=== PATIENT | female | born 1935 | race Caucasian/White ===

== ENCOUNTER → 2020-06-01 09:27 | Outpatient (BNVA) | payer MEDICARE, OTHER, SELFPAY | PROVIDERS: PCP Internal Medicine; Visit Provider Orthopaedic Surgery | DX: M17.0 Bilateral primary osteoarthritis of knee (principal) | CPT/HCPCS: 20610; 99214; J1040 ==

== ENCOUNTER 2020-06-22 08:49 | Outpatient (REF) | payer MEDICARE, OTHER, SELFPAY ==
[2020-06-22 11:54] LABS: Alanine Aminotransferase < 6 U/L (0-31); Albumin Level 3.9 g/dL (3.5-5.0); Alkaline Phosphatase 52 U/L (39-117); Anion Gap 11 (12-20); Aspartate Amino Transferase 14 U/L (5-31); Bilirubin Total 0.3 mg/dL (0.0-1.0); Blood Urea Nitrogen 15 mg/dL (9-16); Calcium 7.9 mg/dL (8.4-10.2); Carbon Dioxide 26 mmol/L (22-29); Chloride 104 mmol/L (96-108); Cholesterol 246 mg/dL; Estimated Glomerular Filt Rate > 60; Glucose Fasting 86 mg/dL (60-99); HDL Cholesterol 56 mg/dL; LDL Cholesterol Calculated 153 mg/dl; Potassium 3.8 mmol/l (3.3-5.1); Sodium 137 mmol/L (135-145); Total Protein 6.2 g/dL (6.5-8.0); Triglycerides 186 mg/dL
== END 2020-06-22 08:50 | disposition home or self-care (01) ==
LOC: HO.HMGCLDS 08:49
PROVIDERS: PCP Internal Medicine; Visit Provider Internal Medicine
DX: E78.2 Mixed hyperlipidemia (principal)
CPT/HCPCS: 80053; 80061

== ENCOUNTER 2020-07-01 13:28 | Outpatient (REF) | payer MEDICARE, OTHER, SELFPAY ==
--- NOTE | 2020-07-01 13:31 | MR_ITS ---
MR LUMBAR SPINE WITHOUT CONTRAST CLINICAL INFORMATION: Spinal stenosis without neurogenic claudication. COMPARISON: Lumbar spine MRI 02/07/2013. TECHNIQUE: MRI of the lumbar spine was obtained using routine sequences without contrast. FINDINGS: Severe rightward convex scoliotic curvature of the upper lumbar spine and compensatory leftward convex scoliotic curvature at the lumbosacral junction. Vertebral body heights are maintained. Moderate disc volume loss and disc desiccation at all lumbar levels. There is no bone marrow edema. There are no acute fractures. The conus terminates at the T12-L1 level. There is bilateral perinephric stranding. Mixed cystic and solid versus complex cystic lesion involving the left kidney appears similar when compared to multiple previous studies dated back to 02/07/2013 and has been previously assessed with abdominal imaging. Paraspinal muscular atrophy. L1-L2: Left paracentral disc osteophyte protrusion is increased in size, resulting in posterior deflection of the traversing left L2 nerve root within the left subarticular zone. There is no central canal stenosis. Mild foraminal encroachment bilaterally L2-L3: Similar right paracentral disc osteophyte protrusion contacting the traversing right L3 nerve root within the right subarticular zone. Moderate bilateral facet arthropathy and ligamentum flavum thickening. Mild central canal stenosis. Mild right foraminal encroachment. L3-L4: Right paracentral disc osteophyte protrusion continues to contact the traversing right L4 nerve root within the right subarticular zone which is unchanged. Background annular disc bulge and far right lateral disc osteophyte complex. Moderate bilateral facet arthropathy and ligamentum flavum thickening. Mild to moderate right and mild left foraminal stenosis unchanged. L4-L5: Similar inferiorly migrating right paracentral disc extrusion resulting in posterior deflection of the traversing right L5 nerve root within the right subarticular zone and similar right lateral disc osteophyte that along with advanced facet arthropathy results in mild to moderate right-sided foraminal stenosis. No central canal and no left foraminal stenosis. L5-S1: Disc osteophyte and advanced bilateral facet arthropathy, greater on the right side resulting in progressive right subarticular zone stenosis with mass effect on the traversing right S1 nerve root and similar mild bilateral foraminal encroachment. Stable slight grade 1 anterolisthesis. MR/MR lumbar spine wo con IMPRESSION: - Similar severe thoracolumbar scoliosis. - At L5-S1, progressive spondylitic changes result in worsening severe right subarticular zone stenosis with mass effect on the traversing right S1 nerve root. - At L4-L5, there is a similar inferiorly migrating right paracentral disc extrusion resulting in posterior deflection of the traversing right L5 nerve root within the right subarticular zone and multifactorial degenerative changes result in similar mild to moderate right-sided foraminal stenosis. - At L3-L4, a right paracentral disc osteophyte protrusion continues to contact the traversing right L4 nerve root within the right subarticular zone and multifactorial degenerative changes result in similar mild to moderate right-sided foraminal stenosis. - At L2-L3, there is a similar right paracentral disc osteophyte protrusion contacting the traversing right L3 nerve root within the right subarticular zone. - At L1-L2, there has been an increase in size of a left paracentral disc osteophyte protrusion that results in worsening posterior deflection of the traversing left L2 nerve root within the left subarticular zone. -Mixed cystic and solid versus complex cystic lesion involving the left kidney appears similar when compared to multiple previous studies dated back to 02/07/2013 and has been previously assessed with abdominal imaging.
== END 2020-07-01 13:29 | disposition home or self-care (01) ==
LOC: HO.MRI 13:28
PROVIDERS: PCP Internal Medicine; Visit Provider Internal Medicine
DX: M48.061 Spinal stenosis, lumbar region without neurogenic claudication (principal)
CPT/HCPCS: 72148

== ENCOUNTER → 2020-11-18 14:16 | Outpatient (BNVA) | payer MEDICARE, OTHER, SELFPAY | PROVIDERS: PCP Internal Medicine; Visit Provider Student in an Organized Health Care Education/Training Program | DX: M81.0 Age-related osteoporosis without current pathological fracture (principal) | CPT/HCPCS: 96372; 96402; J0897 ==

== ENCOUNTER 2020-12-01 14:22 | Outpatient (REF) | payer MEDICARE, OTHER, SELFPAY ==
--- NOTE | ~2020-12-01 | US_ITS ---
EXAMINATION: US RETROPERITONEAL LIMITED (RENAL ONLY) CLINICAL INFORMATION: Renal cystic disease. COMPARISON: CT abdomen and pelvis 09/08/2016 TECHNIQUE: Routine grayscale imaging of kidneys was performed. FINDINGS: RIGHT KIDNEY: 10.6 x 3.8 x 5.0 cm (SAG x AP x TRV). The kidney is normal in size, contour, and echogenicity. Renal cortical thickness is normal. No calculi or focal parenchymal lesions. No hydronephrosis. LEFT KIDNEY: 14.3 x 6.1 x 5.6 cm (SAG x AP x TRV). The kidney is normal in size, contour, and echogenicity. Renal cortical thickness is normal. No calculi or focal parenchymal lesions. There is moderate hydronephrosis with an anechoic cyst in the upper pole measuring 0.9 x 0.9 x 1.0 cm. There is a hypoechoic to isoechoic solid lesion in the midpole measuring 3.8 x 6.1 x 3.0 cm. This lesion has been present since CT abdomen and pelvis 09/08/2016. On this CT it measured 5.9 x 2.6 cm on axial image. US/US renal BI IMPRESSION: Solid lesion midpole left kidney concordant with previous CT abdomen exam 09/08/2016. There is left hydronephrosis. In addition an upper pole cyst or focal caliectasis is suspected. Unremarkable right kidney.
== END 2020-12-01 14:23 | disposition home or self-care (01) ==
LOC: HO.US 14:22
PROVIDERS: PCP Internal Medicine; Visit Provider Internal Medicine Nephrology
DX: I10 Essential (primary) hypertension (principal); N28.1 Cyst of kidney, acquired
CPT/HCPCS: 76775

== ENCOUNTER 2021-01-04 08:38 | Outpatient (REF) | payer MEDICARE, OTHER, SELFPAY ==
[2021-01-04 12:20] LABS: Alanine Aminotransferase 6 U/L (0-31); Anion Gap 14 (12-20); Aspartate Amino Transferase 12 U/L (5-31); Blood Urea Nitrogen 20 mg/dL (9-16); Calcium 8.9 mg/dL (8.4-10.2); Carbon Dioxide 28 mmol/L (22-29); Chloride 103 mmol/L (96-108); Cholesterol 352 mg/dL; Estimated Glomerular Filt Rate 52; Glucose Fasting 89 mg/dL (60-99); HDL Cholesterol 60 mg/dL; LDL Cholesterol Calculated 265 mg/dl; Potassium 4.5 mmol/L (3.3-5.1); Sodium 140 mmol/L (135-145); Triglycerides 137 mg/dL
== END 2021-01-04 08:39 | disposition home or self-care (01) ==
LOC: HO.HMGCLDS 08:38
PROVIDERS: PCP Internal Medicine; Visit Provider Internal Medicine
DX: I10 Essential (primary) hypertension (principal); E78.2 Mixed hyperlipidemia
CPT/HCPCS: 36415; 80048; 80061; 84450; 84460

== ENCOUNTER → 2021-01-17 12:32 | Outpatient (BNVA) | payer MEDICARE, OTHER, SELFPAY | PROVIDERS: Visit Provider Student in an Organized Health Care Education/Training Program | DX: M81.0 Age-related osteoporosis without current pathological fracture (principal) | CPT/HCPCS: 99212 ==

== ENCOUNTER 2021-03-08 12:47 | Outpatient (REF) | payer MEDICARE, OTHER, SELFPAY ==
[2021-03-08 14:21] LABS: Alanine Aminotransferase < 6 U/L (0-31); Albumin Level 4.1 g/dL (3.5-5.0); Alkaline Phosphatase 65 U/L (39-117); Anion Gap 16 (12-20); Aspartate Amino Transferase 12 U/L (5-31); Bilirubin Total 0.4 mg/dL (0.0-1.0); Blood Urea Nitrogen 15 mg/dL (9-16); Calcium 9.3 mg/dL (8.4-10.2); Carbon Dioxide 25 mmol/L (22-29); Chloride 102 mmol/L (96-108); Estimated Glomerular Filt Rate 53; Glucose Random 89 mg/dL (60-115); Potassium 4.5 mmol/L (3.3-5.1); Sodium 138 mmol/L (135-145); Total Protein 6.6 g/dL (6.5-8.0)
[2021-03-08 14:26] LABS: Anion Gap 16 (12-20); Blood Urea Nitrogen 15 mg/dL (9-16); Carbon Dioxide 25 mmol/L (22-29); Chloride 102 mmol/L (96-108); Estimated Glomerular Filt Rate 53; Potassium 4.5 mmol/L (3.3-5.1); Sodium 138 mmol/L (135-145)
[2021-03-12 13:32] LABS: Vitamin D 25-OH, D2 <4 ng/mL; Vitamin D 25-OH, D3 79 ng/mL; Vitamin D 25-OH, Total 79 ng/mL (30-100)
== END 2021-03-08 12:48 | disposition home or self-care (01) ==
LOC: HO.HMGCLDS 12:47
PROVIDERS: Student in an Organized Health Care Education/Training Program; PCP Internal Medicine; Visit Provider Internal Medicine Nephrology
DX: M81.0 Age-related osteoporosis without current pathological fracture (principal); I10 Essential (primary) hypertension; N28.1 Cyst of kidney, acquired
CPT/HCPCS: 36415; 80051; 80053; 82306; 82310; 82565; 84520

== ENCOUNTER → 2021-03-29 13:03 | Outpatient (BNVA) | payer MEDICARE, OTHER, SELFPAY | PROVIDERS: PCP Internal Medicine; Visit Provider Urology | DX: N13.30 Unspecified hydronephrosis (principal) | CPT/HCPCS: 99202 ==

== ENCOUNTER → 2021-04-14 15:19 | Outpatient (BNVA) | payer MEDICARE, OTHER, SELFPAY | PROVIDERS: PCP Internal Medicine; Visit Provider Urology ==

== ENCOUNTER → 2021-04-20 12:40 | Outpatient (REF) | payer MEDICARE, OTHER, SELFPAY ==
--- NOTE | ~2021-04-20 | NM_ITS ---
EXAMINATION: NM KIDNEY IMAGING CLINICAL INFORMATION: Hydronephrosis. COMPARISON: None TECHNIQUE: Following intravenous administration of 10 mCi of 99m technetium DTPA, imaging over the kidneys were obtained up to 30 minutes. 30 mg of Lasix was administered and further imaging was obtained over next 25 minutes. FINDINGS: There is slight decreased perfusion left kidney likely related to small size. There is progressive increased activity seen in the right kidney cortex and the pelvis up to 30 minutes. On continued imaging there is decreased left renal cortical function. A normal right cortical function is noted. On the renogram exam the left renal kidney function is 23.8% and the right kidney function is 76.2%. Time from maximum half max is 18.7 minutes and left kidney and 26.9 minutes and right kidney. Post Lasix there is no response of left kidney, likely due to small size of the large upper pole cyst resulting in a small appearance of left kidney. Post Lasix there is normal emptying of the right kidney pelvis with no evidence of hydronephrosis. NM/NM renal flow w pharm int IMPRESSION: Slightly diminished left renal perfusion and cortical function but no obstruction seen. There is a moderate-sized cyst in the upper/midpole Normal right renal perfusion, function and excretion with no evidence of hydronephrosis.
== END ==
LOC: HO.NUCMED 12:40
PROVIDERS: Visit Provider Urology
DX: N13.30 Unspecified hydronephrosis (principal)
CPT/HCPCS: 78708; A9539; J1940

== ENCOUNTER 2021-04-26 07:18 | Outpatient (REF) | payer MEDICARE, OTHER, SELFPAY ==
[2021-04-26 11:43] LABS: Alanine Aminotransferase 6 U/L (0-31); Aspartate Amino Transferase 10 U/L (5-31); Cholesterol 207 mg/dL; HDL Cholesterol 59 mg/dL; LDL Cholesterol Calculated 128 mg/dl; Triglycerides 102 mg/dL
== END 2021-04-26 07:19 | disposition home or self-care (01) ==
LOC: HO.HMGCLDS 07:18
PROVIDERS: PCP Internal Medicine; Visit Provider Internal Medicine
DX: E78.5 Hyperlipidemia, unspecified (principal)
CPT/HCPCS: 36415; 80061; 82550; 84450; 84460

== ENCOUNTER → 2021-04-28 10:39 | Outpatient (BNVA) | payer MEDICARE, OTHER, SELFPAY | PROVIDERS: PCP Internal Medicine; Visit Provider Urology | CPT/HCPCS: Q3014 ==

== ENCOUNTER → 2021-05-26 09:24 | Outpatient (BNVA) | payer MEDICARE, OTHER, SELFPAY | PROVIDERS: PCP Internal Medicine; Visit Provider Nurse Practitioner Family | DX: M81.0 Age-related osteoporosis without current pathological fracture (principal) | CPT/HCPCS: 96372; J0897 ==

== ENCOUNTER → 2021-06-22 13:03 | Outpatient (BNVA) | payer MEDICARE, OTHER, SELFPAY | PROVIDERS: PCP Internal Medicine; Referring Provider Internal Medicine; Visit Provider Internal Medicine Cardiovascular Disease | DX: I44.7 Left bundle-branch block, unspecified (principal); I25.10 Atherosclerotic heart disease of native coronary artery without angina pectoris; I10 Essential (primary) hypertension; R06.02 Shortness of breath; E78.2 Mixed hyperlipidemia; M81.0 Age-related osteoporosis without current pathological fracture; Z88.6 Allergy status to analgesic agent; Z79.899 Other long term (current) drug therapy | CPT/HCPCS: 93005; 99212 ==

== ENCOUNTER → 2021-07-07 11:10 | Outpatient (REF) | payer MEDICARE, OTHER, SELFPAY ==
--- NOTE | 2021-07-07 11:13 | CA_ITS ---
Transthoracic Echocardiogram Patient (Last, First, Middle): Jocelyn Mejia M Gender: Female Date of : 1935 Age: 85 Procedure Date: 07/07/2021 Procedure Type: Transthoracic Echocardiogram Location: OP Height: 160.02 cm Weight: 60.78 kg BSA: 1.63 m2 Heart Rate: bpm BP: 118 / 60 mmHg Inspector Returned Materials: Referring MD: Sina Tillman MD Symptoms: I44.7 - Left bundle-branch block, unspecified Study Quality: Good ECG Rhythm: Sinus Conclusions: - The left ventricular systolic function is normal. The calculated ejection fraction is 60% by biplane method. - No obvious valvular pathology seen on this study. Findings Left Ventricle Normal left ventricular cavity size. There is mildly increased left ventricular wall thickness. The left ventricular systolic function is normal. The calculated ejection fraction is 60% by biplane method. There is paradoxical septal motion consistent with a left bundle branch block. E/E prime ratio is between 8 and 15 consistent with indeterminate filling pressures. Evidence suggests grade I (mild) diastolic dysfunction. Right Ventricle Normal right ventricular cavity size and systolic function. Atria Both atria are normal in size. Aortic Valve The aortic valve was not well visualized. There is no aortic valve stenosis. There is no aortic valve regurgitation. Mitral Valve The mitral valve appears normal. There is trace mitral valve regurgitation. There is no mitral valve stenosis. Pulmonic Valve The pulmonic valve was not well visualized. Tricuspid Valve Normal tricuspid valve structure. There is mild tricuspid valve regurgitation. The pulmonary artery systolic pressure is normal. Great Vessels The aortic annulus, sinuses of valsalva, and asc aorta are normal in size. Venous The inferior vena cava is normal in size and collapses greater than 50% with inspiration. Pericardium/Pleural There is no evidence of pericardial effusion. Prior Study Comparison No significant change compared to prior study dated: 01/28/2019. Recommendations, Care & Conclusions No obvious valvular pathology seen on this study. Measurements 2D Linear Measurements IVSd: 1.21 0.6-0.9/0.6-1.0 cm LVIDd: 3.20 3.9-5.3/4.2-5.9 cm LVIDd Index: 1.96 2.4-3.2/2.2-3.1 cm/m2 LVIDs: 2.16 2.0-3.6 cm LVPWd: 1.25 0.7-1.1 cm Ao Root: 2.90 2.1-3.5 cm LA Diam: 3.20 2.7-3.8/3.0-4.0 cm LAIDs Index: 1.96 1.5-2.3 cm/m2 LV Mass: 154.50 67-162/88-224 g LV Mass Index: 94.78 43-95/49-115 g/m2 LVOT Diam: 2.00 3.0+(-)1.3 cm 2D Systolic Function EF 4C: 58.50 >55% EF 2C: 59.70 >55% EF BiP: 60.00 >55% Mitral Valve MV Pk E: 0.69 MV PK A: 1.04 MV Decel Time: 210.00 E/A: 0.70 E'Lateral: 5.00 E'Medial: 4.57 E/E' Med: 15.20 E/E' Lat: 13.90 PHT: 61.00 MVA PHT: 3.61 Decel [place]: 3.31 Aortic Valve AoV Pk Edward: 1.46 AoV Mn Edward: 0.90 AoV VTI: 0.30 AoV Pk Grad: 9.00 Aov Mn Grad: 4.00 CARRIE Cont.VTI: 2.17 LVOT LVOT Pk Edward: 0.86 LVOT Mn Edward: 0.64 LVOT VTI: 0.21 LVOT Pk Grad: 3.00 LVOT Mn Grad: 2.00 LVOT Diam: 2.00 LVOT Area: 3.14 Diastolic Function MV Pk E: 0.69 MV Pk A: 1.04 E/A: 0.70 E'Medial: 4.57 E/E' Med: 15.20 E' Laterial: 5.00 E/E' Lat: 13.90 Right Ventricle TAPSE (mm): 24.00 TVS' Edward: 8.00 Tricuspid Valve TR Pk Edward: 2.23 TR Pk Grad: 20.00 RA Press: 8.00 Great Vessels Aorta Ao Root-2D: 2.90 2.0-3.7 cm Ao Asc: 3.20 2.1-3.4 cm Pulmonary Valve PV Pk Edward: 1.03 Peak PV Grad: 4.00 Updated in Other Vendor System with Status of Final Patricio Sotelo MD electronically signed on 07/09/2021 12:49:30 PM with status of Final
== END ==
LOC: HO.CARD 11:10
PROVIDERS: Visit Provider Internal Medicine Cardiovascular Disease
DX: I44.7 Left bundle-branch block, unspecified (principal)
CPT/HCPCS: 93306

== ENCOUNTER 2021-07-27 13:06 | Outpatient (REF) | payer MEDICARE, OTHER, SELFPAY ==
--- NOTE | ~2021-07-27 | XR_ITS ---
EXAMINATION: XR CHEST CLINICAL INFORMATION: Dyspnea COMPARISON: Previous chest x-ray most recent September 2019 TECHNIQUE: 2 views of the chest. FINDINGS: The cardiac and mediastinal contours are stable. The lungs are clear. There is no pleural effusion or pneumothorax. There are degenerative changes of the spine and curvature of the lower thoracic and upper lumbar spine to the right XR/XR chest 2V IMPRESSION: No evidence for acute disease in the chest.
== END 2021-07-27 13:07 | disposition home or self-care (01) ==
LOC: HO.XRAY 13:06
PROVIDERS: PCP Internal Medicine; Visit Provider Internal Medicine
DX: R06.00 Dyspnea, unspecified (principal)
CPT/HCPCS: 71046; 99202

== ENCOUNTER 2021-10-25 07:51 | Outpatient (REF) | payer MEDICARE, OTHER, SELFPAY ==
[2021-10-25 11:48] LABS: Vitamin D 25-OH Total 87.6 ng/mL (>30)
[2021-10-25 12:01] LABS: Folate 4.1 ng/mL (> or = 4.0); Vitamin B12 570 pg/mL (200-900)
[2021-10-25 12:10] LABS: Alanine Aminotransferase < 6 U/L (0-31); Anion Gap 11 (12-20); Aspartate Amino Transferase 14 U/L (5-31); Blood Urea Nitrogen 16 mg/dL (9-16); Calcium 9.1 mg/dL (8.4-10.2); Carbon Dioxide 29 mmol/L (22-29); Chloride 105 mmol/L (96-108); Cholesterol 225 mg/dL; Estimated Glomerular Filt Rate 54; Glucose Fasting 87 mg/dL (60-99); HDL Cholesterol 62 mg/dL; LDL Cholesterol Calculated 135 mg/dl; Potassium 4.7 mmol/L (3.3-5.1); Sodium 140 mmol/L (135-145); Triglycerides 143 mg/dL
== END 2021-10-25 07:52 | disposition home or self-care (01) ==
LOC: HO.HMGCLDS 07:51
PROVIDERS: Visit Provider Internal Medicine
DX: E53.8 Deficiency of other specified B group vitamins (principal); E78.5 Hyperlipidemia, unspecified; I10 Essential (primary) hypertension; Z78.0 Asymptomatic menopausal state
CPT/HCPCS: 36415; 80048; 80061; 82306; 82607; 82746; 84450; 84460

== ENCOUNTER 2022-03-07 13:58 | Outpatient (REF) | payer MEDICARE, OTHER, SELFPAY ==
[2022-03-07 16:42] LABS: Blood Urea Nitrogen 20 mg/dL (9-16); Estimated Glomerular Filt Rate 47
== END 2022-03-07 13:59 | disposition home or self-care (01) ==
LOC: HO.HMGCLDS 13:58
PROVIDERS: PCP Internal Medicine; Visit Provider Urology
DX: N28.1 Cyst of kidney, acquired (principal); R39.15 Urgency of urination
CPT/HCPCS: 36415; 82565; 84520

== ENCOUNTER 2022-03-13 14:34 | Outpatient (REF) | payer MEDICARE, OTHER, SELFPAY ==
--- NOTE | ~2022-03-13 | CT_ITS ---
EXAMINATION: CT ABDOMEN WITHOUT AND WITH CONTRAST CLINICAL INFORMATION: Follow-up renal lesions. COMPARISON: CT examinations as remote as 12/30/2019; prior MRI examination of the lumbar spine, most recently 07/03/2020; renal ultrasound dated 12/01/2020. TECHNIQUE: Contiguous axial thin section helical images of the abdomen were performed before and after the administration of oral contrast and 85 mL of Omnipaque 350 intravenous contrast. The data set was reformatted in the coronal and sagittal planes and reviewed on an independent workstation. This CT examination was performed using dose optimization techniques as appropriate, variously including the following: *Automated exposure control *Adjustment of mA and/or kV according to patient size (this includes techniques or standardized protocols for targeted exams where dose is matched to indication/reason for exam; i.e. extremities or head) *Use of iterative reconstruction technique DLP: 424 mGy-cm FINDINGS: FINDINGS: LUNG BASES: The visualized lung bases are unremarkable. LIVER, GALLBLADDER, AND BILIARY TREE: The liver is normal in size, shape, and attenuation. Multiple low-attenuation hepatic cysts are seen, not significantly changed in appearance from 08/29/2016, and considered benign by virtue of their stability. No focal hepatic lesion or biliary ductal dilatation is present. The gallbladder is unremarkable, without calculus, pericholecystic fat stranding or fluid. PANCREAS: Unremarkable SPLEEN: Unremarkable ADRENAL GLANDS: Unremarkable KIDNEYS AND URETERS: The kidneys are normal in size, shape, and attenuation. No right hydronephrosis, hydroureter, or calculi seen. There is stable marked left renal upper pole hydronephrosis and pelviectasis with associated severe cortical thinning. No left ureterectasis or ureteric calculus is seen. No perinephric stranding. At the interpolar aspect of the left kidney centrally (6:215, 10:211 and 9:47), there is a 6.0 x 3.5 x 3.7 cm enhancing lesion again seen, which shows a precontrast Hounsfield value of 37.1 units and a postcontrast Hounsfield value of 79.[address]. [address] the abdomen dated 12/29/2008, this measured 5.6 x 3.2 cm (103:57), and on the CTA abdomen dated 09/08/2016, this measured 6.4 x 3.5 cm (5:621). At the upper pole of the left kidney (6:157 and 10:161), there is a stable 9 mm cyst with precontrast Hounsfield value of -9.7 units and postcontrast Hounsfield value of 8.8 units. At the lower pole of the left kidney (6:267 and 10:255), there is a 1.0 cm simple-appearing cyst with precontrast Hounsfield value of 3.5 units and postcontrast Hounsfield value of 32.2 units. This was noted on the prior MRI examination (5:14 and 7:3). There is an adjacent 10 mm simple-appearing cyst which also was seen on the prior MRI examination dated 07/01/2020 (5:17). There are further stable tiny peripheral low-attenuation exophytic cysts which are as well stable and of considered benign, although there are too small for full characterization with CT. GASTROINTESTINAL TRACT: There is a small hiatus hernia. The small and large bowel are unremarkable. The appendix is unremarkable. ABDOMINAL WALL: There is a small fat-containing umbilical hernia, with neck measuring 1.5 cm. LYMPH NODES: Normal VASCULAR: There is moderate aortoiliac atherosclerotic calcification. No abdominal aortic aneurysm is seen. OSSEOUS STRUCTURES: There is a marked lumbar dextroscoliosis. There is multi-level marked thoracolumbar degenerative disc disease, spondylosis and facet arthropathy. CT/CT abdomen wo/w con IMPRESSION: There are continued stable dimensions of an enhancing central left renal mass. Recommend continued Urology evaluation and management. There are further simple appearing left renal cysts noted, and a benign, mildly complex left renal lower pole cyst is seen with tiny wall calcifications. This latter cyst requires no imaging follow-up. There is continued stable marked left renal upper pole caliectasis and pelviectasis, without dru hydronephrosis. Fleischner guidelines were followed.
[2022-03-13] MEDS: iohexoL 350 MG/ML 100 ML INFUS..BTL IV (15:45)
== END 2022-03-13 14:35 | disposition home or self-care (01) ==
LOC: HO.CT 14:34
PROVIDERS: PCP Internal Medicine; Visit Provider Urology
DX: N28.1 Cyst of kidney, acquired (principal)
CPT/HCPCS: 74170; Q9967

== ENCOUNTER → 2022-04-18 09:03 | Outpatient (BNVA) | payer MEDICARE, OTHER, SELFPAY | PROVIDERS: PCP Internal Medicine; Visit Provider Urology | DX: N13.30 Unspecified hydronephrosis (principal); N28.1 Cyst of kidney, acquired | CPT/HCPCS: Q3014 ==

== ENCOUNTER 2022-05-02 07:22 | Outpatient (REF) | payer MEDICARE, OTHER, SELFPAY ==
[2022-05-02 12:13] LABS: Alanine Aminotransferase < 6 U/L (0-31); Anion Gap 13 (12-20); Aspartate Amino Transferase 13 U/L (5-31); Blood Urea Nitrogen 19 mg/dL (9-16); Calcium 8.8 mg/dL (8.4-10.2); Carbon Dioxide 27 mmol/L (22-29); Chloride 104 mmol/L (96-108); Cholesterol 243 mg/dL; Estimated Glomerular Filt Rate 54; Glucose Fasting 85 mg/dL (60-99); HDL Cholesterol 58 mg/dL; LDL Cholesterol Calculated 143 mg/dl; Potassium 4.3 mmol/L (3.3-5.1); Sodium 140 mmol/L (135-145); Triglycerides 212 mg/dL
== END 2022-05-02 07:23 | disposition home or self-care (01) ==
LOC: HO.HMGCLDS 07:22
PROVIDERS: PCP Internal Medicine; Visit Provider Internal Medicine
DX: I10 Essential (primary) hypertension (principal); E78.2 Mixed hyperlipidemia
CPT/HCPCS: 36415; 80048; 80061; 84450; 84460

== ENCOUNTER → 2022-06-21 12:49 | Outpatient (BNVA) | payer MEDICARE, OTHER, SELFPAY | PROVIDERS: PCP Internal Medicine; Referring Provider Internal Medicine; Visit Provider Internal Medicine Cardiovascular Disease | DX: I25.10 Atherosclerotic heart disease of native coronary artery without angina pectoris (principal); I44.7 Left bundle-branch block, unspecified | CPT/HCPCS: 93005; 99212 ==

== ENCOUNTER 2022-08-23 10:33 | Outpatient (REF) | payer MEDICARE, SELFPAY ==
[2022-08-23 15:58] LABS: Folate 6.3 ng/mL (> or = 4.0); Vitamin B12 614 pg/mL (200-900)
== END 2022-08-23 10:34 | disposition home or self-care (01) ==
LOC: HO.HMGCLDS 10:33
PROVIDERS: PCP Internal Medicine; Visit Provider Internal Medicine
DX: E53.8 Deficiency of other specified B group vitamins (principal)
CPT/HCPCS: 36415; 82607; 82746

== ENCOUNTER 2022-11-05 14:20 | Outpatient (REF) | payer MEDICARE, SELFPAY | END 2022-11-05 14:21 | disposition home or self-care (01) | LOC: HO.LAB 14:20 | PROVIDERS: PCP Internal Medicine; Visit Provider Nurse Practitioner Family | DX: R35.1 Nocturia (principal); R35.0 Frequency of micturition | CPT/HCPCS: 51798; 87086; 99212 ==

== ENCOUNTER 2022-11-15 11:29 | Outpatient (REF) | payer MEDICARE, SELFPAY ==
[2022-11-15 14:06] LABS: Hematocrit 36.6 % (37.0-47.0); Hemoglobin 11.6 g/dl (12.0-16.0); Mean Corpuscular HGB Conc 31.7 g/dl (31.0-35.0); Mean Corpuscular Hemoglobin 30.7 pg (27.0-33.0); Mean Corpuscular Volume 96.8 fL (80.0-98.0); Mean Platelet Volume 10.9 fL (9.4-12.3); Platelet Count 220 X10*3/uL (160-400); Red Blood Count 3.78 X10*6/uL (4.20-5.50); Red Cell Distribution Width 13.6 % (11.0-16.0); White Blood Count 5.5 X10*3/uL (4.8-10.8)
[2022-11-15 14:23] LABS: Appearance Urine Clear; Color Urine Yellow; Glucose Urine UA Negative (Negative); Leukocyte Esterase Urine Moderate (2+) (Negative); Nitrite Urine Negative (Negative); PH 5.5 (5.0-9.0); Specific Gravity - Urine 1.015 (1.005-1.025); UMIC TRIGGER UA YES; Urine Blood Negative (Negative); Urine Ketones Negative (Negative); Urine Protein Negative (Neg-Trace)
[2022-11-15 14:26] LABS: Bacteria Urine None Seen (None Seen); Hyaline Casts Urine 0-2 /LPF (0-2); RBC Urine 0-2 /HPF (0-2)
[2022-11-15 14:37] LABS: Albumin Level 3.9 g/dL (3.5-5.0); Anion Gap 12 (12-20); Blood Urea Nitrogen 13 mg/dL (9-16); Calcium 9.4 mg/dL (8.4-10.2); Carbon Dioxide 26 mmol/L (22-29); Chloride 105 mmol/L (96-108); Estimated Glomerular Filt Rate 57; Magnesium 1.8 mg/dL (1.6-2.6); Phosphorus 3.4 mg/dL (2.7-4.5); Potassium 4.3 mmol/L (3.3-5.1); Sodium 139 mmol/L (135-145)
[2022-11-15 14:55] LABS: Vitamin D 25-OH Total 65.4 ng/mL (>30)
[2022-11-15 14:57] LABS: Creatinine Urine 90.58 mg/dL; Microalbum/Creatinine Ratio Ur 17.6 ug/mg cr; Protein/Creatinine Ratio, Ur 0.09 (<0.2); Total Protein Urine Random 8 mg/dL (<12)
[2022-11-16 16:23] LABS: Calcium (PTHI) 9.6 mg/dL (8.6-10.4); PTHI 86 pg/mL (16-77)
== END 2022-11-15 11:30 | disposition home or self-care (01) ==
LOC: HO.HMGCLDS 11:29
PROVIDERS: PCP Internal Medicine; Visit Provider Internal Medicine Nephrology
DX: N18.31 Chronic kidney disease, stage 3a (principal); N28.1 Cyst of kidney, acquired
CPT/HCPCS: 36415; 80051; 81001; 82040; 82043; 82306; 82310; 82565; 83735; 83970; 84100; 84156; 84520; 85027; 87086

== ENCOUNTER 2022-11-16 12:39 | Outpatient (REF) | payer MEDICARE, OTHER, SELFPAY ==
--- NOTE | ~2022-11-16 | US_ITS ---
EXAMINATION: US RETROPERITONEAL COMPLETE (RENAL) CLINICAL INFORMATION: Frequency of micturition. COMPARISON: CT abdomen 03/13/2022. Renal ultrasound 12/01/2020. TECHNIQUE: Real-time imaging of the kidneys and bladder. FINDINGS: RIGHT KIDNEY: 10.5 x 4.0 x 6.2 cm (SAG x AP x TRV). The kidney is normal in size, contour, and echogenicity. Renal cortical thickness is normal. No calculi or focal parenchymal lesions. No hydronephrosis. LEFT KIDNEY: 14 x 6.1 x 5.5 cm (SAG x AP x TRV). The kidney is normal in size, contour, and echogenicity. Renal cortical thickness is normal. No renal calculi or hydronephrosis. Again seen is a large enhancing mass in the mid left kidney extending towards the hilum which measures 5.1 x 3.6 x 3.3 cm. At the time of the prior CT scan this measured 6.0 x 3.5 x 3.7 cm, slightly larger; however, measurements between modalities may not be accurate. Some benign Bosniak class I cysts are also present in the left kidney which need no additional imaging or followup. BLADDER: Bilateral ureteral jets are demonstrated. Prevoid bladder volume is 164 mL. Postvoid bladder volume is 128 mL. US/US retroperitoneal comp IMPRESSION: Left solid renal mass appears slightly smaller when compared to the prior CT scan.
== END 2022-11-16 12:40 | disposition home or self-care (01) ==
LOC: HO.US 12:39
PROVIDERS: PCP Internal Medicine; Visit Provider Nurse Practitioner Family
DX: R35.0 Frequency of micturition (principal); R35.1 Nocturia
CPT/HCPCS: 76770

== ENCOUNTER 2022-11-27 11:16 | Outpatient (REF) | payer MEDICARE, OTHER, SELFPAY ==
--- NOTE | ~2022-11-27 | XR_ITS ---
EXAMINATION: XR LUMBOSACRAL SPINE CLINICAL INFORMATION: Back pain. COMPARISON: CT scan of the abdomen dated 03/13/2022. TECHNIQUE: Three views of the lumbosacral spine. FINDINGS: Moderate thoracolumbar dextro scoliosis is noted with moderate to severe multilevel degenerative changes. There is no acute fracture or dislocation. There is normal spinal alignment. Moderate to severe atherosclerosis is noted. The soft tissues are unremarkable. XR/XR lumbar spine 2-3V IMPRESSION: Moderate thoracolumbar dextro scoliosis and moderate to severe multilevel degenerative changes. No acute fracture.
--- NOTE | ~2022-11-27 | XR_ITS ---
EXAMINATION: XR HIP, LEFT CLINICAL INFORMATION: Left hip pain. COMPARISON: None available. TECHNIQUE: Two views of the left hip. FINDINGS: Mild left hip degenerative joint changes are seen. This no acute fracture or dislocation. The left hemipelvis is intact. The soft tissues are unremarkable. XR/XR hip LT w PEL1V IMPRESSION: Mild left hip osteoarthritis. No acute fracture.
== END 2022-11-27 11:17 | disposition home or self-care (01) ==
LOC: HO.HMGCX 11:16
PROVIDERS: PCP Internal Medicine; Visit Provider Physician Assistant
DX: M25.552 Pain in left hip (principal); M54.50 Low back pain, unspecified
CPT/HCPCS: 72100; 73502

== ENCOUNTER → 2022-12-20 13:22 | Outpatient (BNVA) | payer MEDICARE, OTHER, MEDICAID, SELFPAY | PROVIDERS: PCP Internal Medicine; Visit Provider Nurse Practitioner Family | DX: N28.1 Cyst of kidney, acquired (principal); R35.1 Nocturia; R35.0 Frequency of micturition; E53.8 Deficiency of other specified B group vitamins | CPT/HCPCS: 51798; 99212 ==

== ENCOUNTER 2023-03-22 10:38 | Outpatient (AMB) | payer MEDICARE, OTHER, MEDICAID, SELFPAY ==
--- NOTE | 2023-03-22 11:25 | AM.OFFVISNUR ---
Intake Intake Visit Reasons: B-12 Shot Intake Note: Pt arrived for monthly B-12 injections Allergies codeine Allergy (Unknown, Verified 12/24/22 13:36) Unknown Office Meds cyanocobalamin (vitamin B-12) Performing Provider: Magy Romero MD Administered by: Candice Quevedo RN on 03/22/23 11:26 Dose Route Admin Location Lot Number Expiration Date NDC Political Aide 1,000 mcg IM left deltoid [id number] 02/24/24 44653-372-96 [employer] Comments: Pt supplied Coding Diagnoses Assessment & Plan Assessment & Plan Orders: Orders AMB Vitamin B12 Injection Patient Supplied Today E53.8 - Deficiency of other specified B group vitamins
== END 2023-03-22 12:44 | disposition home or self-care (01) ==
PROVIDERS: PCP Internal Medicine; Visit Provider Internal Medicine
DX: E53.8 Deficiency of other specified B group vitamins (principal)
CPT/HCPCS: 96372; J3420

== ENCOUNTER 2023-03-26 08:49 | Outpatient (AMB) | payer MEDICARE, OTHER, MEDICAID, SELFPAY ==
--- NOTE | 2023-03-26 09:17 | A.OFFPC_ITS ---
Vital Signs 03/26/23 09:19 Height 5 ft 5 in Weight 141 lb BMI 23.5 BP 110/80 Blood Pressure Location Rt brachial Position Sitting Pulse 67 Pulse Source Pulse Oximeter Pulse Oximetry (%) 97 Oxygen Delivery Method Room Air Intake Visit Reasons: Rt leg pain Intake Note: Pt is here today c/o Rt hip pain down to Rt leg Allergies codeine Allergy (Unknown, Verified 03/26/23 09:37) Unknown Medication List - Last Reconciled 03/26/23 by Magy Romero MD acetaminophen (Tylenol Extra Strength) 500 mg PO Q6H PRN buspirone 7.5 mg PO .qhs calcium carbonate (Calcium 500) 500 mg PO DAILY cyanocobalamin (vitamin B-12) 1,000 mcg IM Q4W denosumab (Prolia) 60 mg subcut [id number] gabapentin 100 mg PO DAILY lisinopril 5 mg PO DAILY omeprazole 20 mg PO DAILY primidone 50 mg PO BEDTIME propranolol ER 60 mg PO DAILY rosuvastatin 10 mg PO DAILY 90 days Tobacco use date assessed: 03/26/23 Fall risk assessment: No Falls in past year Last assessed Fall Risk: 03/26/23 Dental Screening Dental Screen Date: 03/26/23 Did you have a dental visit in the last 12 months?: No HPI Rt leg pain HPI Details 87-year-old lady history of hypertension, GERD, dyslipidemia, essential tremor, and osteoporosis, here today complaining of pain in her right hip going down right leg, worse with ambulation. This has been present now for several months, and had a lumbar spine x-ray in left hip x-ray done November 2022 which showed presence of moderate thoracolumbar dextro scoliosis and moderate to severe multilevel degenerative changes , and mild left hip osteoarthritis , no acute fracture. Currently takes acetaminophen 500 mg/tab , 2 tablets twice a day , and gabapentin given by her director digital strategy, which affords only temporary relief. She has tried tramadol before given by her director digital strategy which made her nauseated. She has been on Celebrex in the past, does not remember whether it helped or not Complains of having difficulty using the toilet in her new apartment, as it is too low and she has difficulty getting on it and getting up. Would Like to get a reaised toilet seat with handles placed. PFSH Medical History Acquired renal cyst of left kidney CAD (coronary artery disease) Chronic low back pain with sciatica Chronic right hip pain Dextroscoliosis of thoracolumbar spine Dyspnea on exertion Essential hypertension Facial skin lesion Fecal incontinence Generalized anxiety disorder GERD with esophagitis Insomnia (Unknown) Left bundle branch block Lumbar disc herniation with radiculopathy Mixed dyslipidemia Osteoarthritis Osteoarthritis, hip, bilateral Osteoporosis Severe scoliosis Spinal stenosis of lumbar region at multiple levels Surgical History History of intraocular lens implant Family History Father No problems noted. Mother Arthritis Son No problems noted. Daughter No problems noted. Brother No problems noted. Social History Housing: Condominium Alcohol intake: never Patient Tobacco Use Status: Never used Tobacco Tobacco use type: Cigarette e-Cigarette/Vaping Use: Never Used Second Hand Smoke Exposure: Yes Current occupational status: retired Current occupation: Retired Cognitive needs: No Hearing needs: No Vision needs: Yes Questionnaire Thrive Questionnaire Date Thrive assessed: 05/08/22 MICHAEL-7 AMB Questionnaire MICHAEL-7 Date MICHAEL - 7 assessed: 05/08/22 Source: Developed by Drs. Brian Gomez, Peg Reyez, John Saucedo and colleagues, with an educational tati from [employer]. Review of Systems Const All systems reviewed & are unremarkable except as noted in HPI and below Physical exam (Primary Care) Vital Signs: Last Vital Signs Pulse 67 03/26/23 09:19 BP 110/80 03/26/23 09:19 Pulse Ox 97 03/26/23 09:19 Oxygen Delivery Method Room Air 03/26/23 09:19 BMI result Body Mass Index 23.5 Tobacco/Smoking Status: Tobacco use Status Tobacco use date assessed 03/26/23 03/26/23 09:22 Patient Tobacco Use Status Never used Tobacco 03/26/23 09:18 Tobacco use type Cigarette 03/26/23 09:18 e-Cigarette/Vaping Use Never Used 03/26/23 09:18 Thrive Assessment: Date of Thrive Assessment Date Thrive assessed 05/08/22 03/26/23 09:18 Const General: no acute distress and alert Orientation/consciousness: patient oriented x3 Limitations: ambulation with cane Neck Neck: Yes full ROM, Yes no lymphadenopathy and Yes supple Resp Auscultation: clear to auscultation bilaterally Cardio Other: S1-S2 present regular rate and rhythm GI Palpation (GI): Soft to palpation, nontender and no guarding Back/Spine/Pelvis Other: Tenderness on palpation over right lumbosacral area, area not warm to touch, but tender to palpation, mild pain elicited on abduction and flexion of right hip joint., no gross bone deformity or joint swelling seen Neuro General: patient oriented x3 Extrem Other: Superficial varicosities noted in both lower extremities, no pedal edema noted Assessment and Plan Assessment & Plan (1) Osteoarthritis, hip, bilateral: Code(s): M16.0 - Bilateral primary osteoarthritis of hip Plan: Patient states that she has does have Voltaren gel at home, has helped in the past, will try that 1st massaged on to affected area to 2 3 times a day, if no improvement, will call her director digital strategy Dr. Portillo for further evaluation management. (2) Dextroscoliosis of thoracolumbar spine: Code(s): M41.85 - Other forms of scoliosis, thoracolumbar region Plan: a letter was written for [facility] requesting to have an elevated toilet seat with handles placed in her apartment, assistance with her toileting and preventing falls Coding Level of Care Code Est Pt Level 3 (04726) Diagnoses Osteoarthritis, hip, bilateral M16.0 Dextroscoliosis of thoracolumbar spine M41.85
[2023-03-26 09:19] VITALS: BP 110/80; PULSE 67; O2SAT 97; BMI 23.5
== END 2023-03-26 10:14 | disposition home or self-care (01) ==
PROVIDERS: PCP Internal Medicine; Visit Provider Internal Medicine
DX: M16.0 Bilateral primary osteoarthritis of hip (principal); M41.85 Other forms of scoliosis, thoracolumbar region
CPT/HCPCS: 99213

== ENCOUNTER 2023-04-18 10:45 | Outpatient (AMB) | payer MEDICARE, OTHER, MEDICAID, SELFPAY ==
--- NOTE | 2023-04-18 11:26 | AM.OFFVISNUR ---
Intake Intake Visit Reasons: B-12 Shot Intake Note: Pt arrived for monthly B-12 injection Allergies codeine Allergy (Unknown, Verified 03/26/23 09:37) Unknown Office Meds cyanocobalamin (vitamin B-12) Performing Provider: Magy Romero MD Administered by: Candice Quevedo RN on 04/18/23 11:27 Dose Route Admin Location Lot Number Expiration Date NDC Industrial Engineering Manager 1,000 mcg IM right deltoid [id number] 02/24/24 [id number] [employer] Comments: Pt supplied Coding Diagnoses Assessment & Plan Assessment & Plan Orders: Orders AMB Vitamin B12 Injection Patient Supplied Today E53.8 - Deficiency of other specified B group vitamins
== END 2023-04-18 11:39 | disposition home or self-care (01) ==
PROVIDERS: PCP Internal Medicine; Visit Provider Internal Medicine
DX: E53.8 Deficiency of other specified B group vitamins (principal)
CPT/HCPCS: 96372; J3420

== ENCOUNTER 2023-05-17 08:46 | Outpatient (AMB) | payer MEDICARE, OTHER, MEDICAID, SELFPAY ==
--- NOTE | 2023-05-17 08:51 | A.OFFPC_ITS ---
Vital Signs 05/17/23 08:54 Height 5 ft 5 in Weight 143 lb BMI 23.8 BP 132/78 Blood Pressure Location Rt brachial Position Sitting Pulse 67 Pulse Source Pulse Oximeter Pulse Oximetry (%) 98 Intake Visit Reasons: trouble with word finding x 3 weeks Allergies codeine Allergy (Unknown, Verified 05/17/23 09:28) Unknown Medication List - Last Reconciled 05/17/23 by Magy Romero MD acetaminophen (Tylenol Extra Strength) 500 mg PO Q6H PRN buspirone 7.5 mg PO .qhs calcium carbonate (Calcium 500) 500 mg PO DAILY cyanocobalamin (vitamin B-12) 1,000 mcg IM Q4W denosumab (Prolia) 60 mg subcut [id number] gabapentin 100 mg PO DAILY lisinopril 5 mg PO DAILY miscellaneous medical supply Elevated toilet seat with handles omeprazole 20 mg PO DAILY primidone 50 mg PO BEDTIME propranolol ER 60 mg PO DAILY rosuvastatin 10 mg PO DAILY 90 days Tobacco use date assessed: 05/17/23 Fall risk assessment: No Falls in past year Last assessed Fall Risk: 05/17/23 Dental Screening Did you have a dental visit in the last 12 months?: No Did you have a dental problem in the last 6 months where you did not have access to dental care?: No Was dental information given to patient?: No HPI trouble with word finding x 3 weeks HPI Details 87-year-old lady here today complaining had several episodes of difficulty with finding the right words when she is speaking. This has happened twice, with having dinner with friends, where in she was having a hard time remembering the rights words to say, and sometimes the word she would speak could be coming out wrong. Patient is aware that she is not speaking right, and has been told that she will repeat some things over and over again. History already being seen by Neurology, has an upcoming appointment next month. She also complains of pain and stiffness mainly in her hips , which gets worse when the weather is rainy or damp. She already has been taking Tylenol at night, which has not really been helping much anymore. Would like to see if she can get prescription for celecoxib again which she has tried in the past. She also has been taking gabapentin 100 mg tablet daily. Takes rosuvastatin , would like to stop taking it as she thinks this is contributing to her muscle pains. Lipids have been stable and controlled over the last several years. She is also here for follow-up on her hypertension and generalized anxiety disorder, currently stable controlled on lisinopril 5 mg once a day and propranolol ER 60 mg take daily as well as buspirone 7.5 mg at bedtime, which she states has been helping a lot with controlling her anxiety attacks She has B12 deficiency, due now for her monthly injections. 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 Mother Arthritis Son No problems noted. Daughter No problems noted. Brother No problems noted. Social History Housing: Condominium Alcohol intake: never Patient Tobacco Use Status: Never used Tobacco Tobacco use type: Cigarette e-Cigarette/Vaping Use: Never Used Second Hand Smoke Exposure: Yes Current occupational status: retired Current occupation: Retired Cognitive needs: No Hearing needs: No Vision needs: Yes Questionnaire Thrive Questionnaire Date Thrive assessed: 05/08/22 I am a: Patient What is your living situation today?: I have a steady place to live Within the past 12 months, did the food you bought not last and you didn't have the money to get more?: Sometimes True Within the past 12 months, did you worry whether your food would run out before you got money to buy more?: Sometimes True Do you have trouble paying for medicines?: No Do you have trouble getting transportation to medical appointments?: No Do you have trouble paying your heating and electricity bill?: No Do you have trouble taking care of your child, family member or friend?: No Do you have trouble with day-to-day activities such as bathing, preparing meals, shopping, managing finances, etc.?: No Are you currently unemployed and looking for a job?: No Are you interested in more education?: No Please select the resources that you would like help with: None AUDIT C Alcohol Use Questionnaire (AUDIT-C) 1. How often do you have a drink containing alcohol?: Never Total Score: 0 MICHAEL-7 AMB Questionnaire MICHAEL-7 Date MICHAEL - 7 assessed: 05/19/23 Feeling nervous, anxious, or on edge: 0 = Not at all Not being able to stop or control worryin = Not at all Worrying too much about different things: 0 = Not at all Trouble relaxin = Several days Being so restless that it is hard to sit still: 0 = Not at all Becoming easily annoyed or irritable: 0 = Not at all Feeling afraid as if something awful might happen: 0 = Not at all Total MICHAEL-7 score (0-4 normal; 5-9 mild; 10-14 moderate; 15-21 severe): 1 Source: Developed by Drs. Brian Gomez, Peg Reyez, John Saucedo and colleagues, with an educational tati from [employer] MICHAEL-7 Assessment Billing MICHAEL-7 Assessment Tool: MICHAEL-7 Assessment 63807 Review of Systems Const Reports as per HPI ENT Reports no additional complaints Card Reports no additional complaints Resp Reports no additional complaints GI Reports no additional complaints Reports no additional complaints Musc Details: Patient ambulating independently however reports left sided hip pain. Reports as per HPI Neuro Reports no additional complaints Psych Reports as per HPI Endo Reports no additional complaints Naif/Lymph Denies easy bleeding Aller/Immun Reports no additional complaints Physical exam (Primary Care) Vital Signs: Last Vital Signs Pulse 67 05/17/23 08:54 BP 132/78 05/17/23 08:54 Pulse Ox 98 05/17/23 08:54 BMI result Body Mass Index 23.8 Tobacco/Smoking Status: Tobacco use Status Tobacco use date assessed 05/17/23 05/17/23 09:07 Patient Tobacco Use Status Never used Tobacco 05/17/23 09:07 Tobacco use type Cigarette 05/17/23 09:07 e-Cigarette/Vaping Use Never Used 05/17/23 09:07 Thrive Assessment: Date of Thrive Assessment Date Thrive assessed 05/08/22 05/17/23 09:07 Const General: no acute distress and alert Orientation/consciousness: patient oriented x3 Limitations: ambulation with cane HENMT Head: Yes normocephalic General nose exam: Normal external nose present Mouth: Normal oral and palatal mucosa present, oropharynx normal and moist mucous membranes Eyes General: appearance normal, both eyes and all related structures Neck Neck: Yes full ROM, Yes no lymphadenopathy and Yes supple Resp Auscultation: clear to auscultation bilaterally Cardio Other: S1-S2 present regular rate and rhythm GI Palpation (GI): Soft to palpation, nontender and no guarding Back/Spine/Pelvis Other: Decreased range of motion of bilateral hip joint due to pain and stiffness, no gross bone deformity or joint swelling seen Neuro General: patient oriented x3 Extrem Other: Superficial varicosities noted in both lower extremities, no pedal edema noted Orientation What is the (year) (season) (date) (day) (month)?: year (2022), season (Fall), day (saturday) and month (april) Where are we (state) (county) (town or city) (hospital) (floor)?: state ([place]), town or city ([place]), hospital/clinic ([facility]) and floor ([place]) Registration Name of 3 unrelated objects clearly and slowly, then ask patient to repeat all 3 of them. (1st repeat determines score. Make sure they can repeat all three): object 1 (Pen), object 2 (Shoes) and object 3 (Watch) Attention & Calculation (CHOOSE ONE) Spell WORLD backwards (DLROW): 5 letters Recall Ask patient to repeat the 3 items from question #3.: object 1 (pen), object 2 (Shoes) and object 3 (Watch) Language Show patient a wristwatch & ask what it is. Repeat for pencil.: watch and pencil Ask the patient to repeat the phrase 'No ifs, ands, or buts' after you.: correct Ask the patient to 'take a piece of paper with their right hand' 'fold paper in half' 'place paper on floor': take paper in right hand, fold paper in half and place paper on floor Print the sentence 'CLOSE YOUR EYES' on a piece. If patient actually closes eyes then score.: followed written direction Give patient a blank piece of paper & ask to write a sentence. Score if it contains a noun & verb.: sentence contains subject and verb Ask patient to copy figure of intersecting pentagons exactly. Score if all 10 angles & 2 intersects are included.: all 10 angles present & 2 are intersected Score Score: 28 Office Meds cyanocobalamin (vitamin B-12) 1,000 mcg/mL injection solution Performing Provider: Magy Romero MD Performing Location: [facility] [place] Adult Primary Care-[facility] Administered by: Candice Quevedo RN on 05/17/23 10:04 Dose Route Admin Location Dispensed Lot Number Expiration Date [employer] Otologist 1,000 mcg IM right deltoid 1 mL [id number] 02/24/24 27751-673-44 [employer] Comments: Pt supplied Assessment and Plan Assessment & Plan (1) Word finding difficulty: Code(s): R47.89 - Other speech disturbances Plan: Mini-mental status exam tested with score 28/30. No significant cognitive defects noted. Advised to follow-up with her urologist next month further evaluation if symptoms symptoms persist (2) Osteoarthritis, hip, bilateral: Code(s): M16.0 - Bilateral primary osteoarthritis of hip Qualifiers: Osteoarthritis type: primary Qualified Code(s): M16.0 - Bilateral primary osteoarthritis of hip Plan: Prescription sent for celecoxib 200 mg per capsule to take once a day as needed for severe pain, may continue taking it with Tylenol as directed (3) Generalized anxiety disorder: Code(s): F41.1 - Generalized anxiety disorder Plan: Will continue on buspirone 7.5 mg once a day (4) Osteoporosis: Comment: sees Dr Ortiz Code(s): M81.0 - Age-related osteoporosis without current pathological fracture Plan: Continue taking calcium carbonate supplements and advised to take [id number] vitamin D3 at 2000 units daily (5) CAD (coronary artery disease): Code(s): I25.10 - Atherosclerotic heart disease of [place] coronary artery without angina pectoris Plan: Patient requesting to stop taking rosuvastatin as this is causing her joint pains. (6) Essential hypertension: Code(s): I10 - Essential (primary) hypertension Plan: Blood pressure at goal of less than 130/80. Continue with current medication. Reinforced importance of following a low sodium diet, getting regular exercise, and lowering stress levels. (7) Osteoarthritis: Code(s): M19.90 - Unspecified osteoarthritis, unspecified site Plan: Continue with Tylenol 500 mg at bedtime as needed may increase dose to a 1000 mg as needed. Patient sent for celecoxib 200 mg per capsule to take once a day as needed for severe pain (8) Vitamin B12 deficiency: Code(s): E53.8 - Deficiency of other specified B group vitamins Plan: Her monthly B12 injection was given today Orders: Orders Alanine Aminotransferase 05/17/23 F41.1 - Generalized anxiety disorder, I10 - Essential (primary) hypertension, I25.10 - Atherosclerotic heart disease of [place] coronary artery without angina pectoris, M16.0 - Bilateral primary osteoarthritis of hip, M19.90 - Unspecified osteoarthritis, unspecified site, M81.0 - Age-related osteoporosis without current pathological fracture Aspartate Amino Transferase 05/17/23 F41.1 - Generalized anxiety disorder, I10 - Essential (primary) hypertension, I25.10 - Atherosclerotic heart disease of [place] coronary artery without angina pectoris, M16.0 - Bilateral primary osteoarthritis of hip, M19.90 - Unspecified osteoarthritis, unspecified site, M81.0 - Age-related osteoporosis without current pathological fracture Basic Metabolic Panel Fasting 05/17/23 F41.1 - Generalized anxiety disorder, I10 - Essential (primary) hypertension, I25.10 - Atherosclerotic heart disease of [place] coronary artery without angina pectoris, M16.0 - Bilateral primary osteoarthritis of hip, M19.90 - Unspecified osteoarthritis, unspecified site, M81.0 - Age-related osteoporosis without current pathological fracture Vitamin D 25-OH Total 05/17/23 F41.1 - Generalized anxiety disorder, I10 - Essential (primary) hypertension, I25.10 - Atherosclerotic heart disease of [place] coronary artery without angina pectoris, M16.0 - Bilateral primary osteoarthritis of hip, M19.90 - Unspecified osteoarthritis, unspecified site, M81.0 - Age-related osteoporosis without current pathological fracture Vitamin B12 and Folate 05/17/23 F41.1 - Generalized anxiety disorder, I10 - Essential (primary) hypertension, I25.10 - Atherosclerotic heart disease of [place] coronary artery without angina pectoris, M16.0 - Bilateral primary osteoarthritis of hip, M19.90 - Unspecified osteoarthritis, unspecified site, M81.0 - Age-related osteoporosis without current pathological fracture AMB Vitamin B12 Injection Patient Supplied 05/17/23 E53.8 - Deficiency of other specified B group vitamins Medications: New buspirone 7.5 mg PO .qhs 90 tabs 2RF celecoxib 200 mg PO DAILY PRN 90 caps 0RF pain (scale score 7-10) Changed From gabapentin 100 mg PO DAILY To gabapentin 100 mg PO BEDTIME From acetaminophen (Tylenol Extra Strength) 500 mg PO Q6H PRN To acetaminophen (Tylenol Extra Strength) 500 mg PO QPM PRN pain Discontinued rosuvastatin Discontinued Reason: Patient Refused 10 mg PO DAILY 90 days 90 tabs 2RF E78.5 - Hyperlipidemia, unspecified Coding Level of Care Code Est Pt Level 4 (28600) Diagnoses Word finding difficulty R47.89 Primary osteoarthritis of both hips M16.0 Osteoarthritis type: primary Generalized anxiety disorder F41.1 Osteoporosis M81.0 CAD (coronary artery disease) I25.10 Essential hypertension I10 Osteoarthritis M19.90 Vitamin B12 deficiency E53.8 Additional Codes MICHAEL-7 Assessment Billing - MICHAEL-7 Assessment Tool: MICHAEL-7 Assessment 88110 ([id number])
[2023-05-17 08:54] VITALS: BP 132/78; PULSE 67; O2SAT 98; BMI 23.8
== END 2023-05-17 10:10 | disposition home or self-care (01) ==
PROVIDERS: PCP Internal Medicine; Visit Provider Internal Medicine
DX: I10 Essential (primary) hypertension (principal); R47.89 Other speech disturbances; M16.0 Bilateral primary osteoarthritis of hip; F41.1 Generalized anxiety disorder; M81.0 Age-related osteoporosis without current pathological fracture; I25.10 Atherosclerotic heart disease of native coronary artery without angina pectoris; M19.90 Unspecified osteoarthritis, unspecified site; E53.8 Deficiency of other specified B group vitamins
CPT/HCPCS: 96372; 99214; J3420

== ENCOUNTER → 2023-06-04 12:41 | Outpatient (REF) | payer MEDICARE, OTHER, MEDICAID, SELFPAY | LOC: HO.CARD 12:41 | PROVIDERS: PCP Internal Medicine; Visit Provider Internal Medicine Cardiovascular Disease | DX: I44.7 Left bundle-branch block, unspecified (principal) | CPT/HCPCS: 93306 ==

== ENCOUNTER → 2023-06-04 12:43 | Outpatient (BNV) | payer MEDICARE, OTHER, MEDICAID, SELFPAY | PROVIDERS: PCP Internal Medicine; Visit Provider Internal Medicine | DX: I35.8 Other nonrheumatic aortic valve disorders (principal); I44.7 Left bundle-branch block, unspecified | CPT/HCPCS: 93306 ==

== ENCOUNTER 2023-06-17 12:52 | Outpatient (AMB) | payer MEDICARE, OTHER, SELFPAY ==
[2023-06-17 13:25] VITALS: BP 130/80; PULSE 90; BMI 23.1
--- NOTE | 2023-06-17 13:25 | A.OFFVIS_ITS ---
Intake Vital Signs 06/17/23 13:25 Height 5 ft 5 in Weight 138 lb 14.259 oz BMI 23.1 BP 130/80 Blood Pressure Location Rt brachial Position Sitting Pulse 90 Intake Visit Reasons: 1 year follow up after echo Intake Note: 1 year follow-up after echo with ekg feeling pretty good stop propranolol 3 days ago Hospital Education Coordinator Required: No Allergies codeine Allergy (Unknown, Verified 05/17/23 09:28) Unknown Medication List - Last Reconciled 06/17/23 by Sina Tillman MD acetaminophen (Tylenol Extra Strength) 500 mg PO QPM PRN buspirone 7.5 mg PO .qhs calcium carbonate (Calcium 500) 500 mg PO DAILY celecoxib 200 mg PO DAILY PRN cyanocobalamin (vitamin B-12) 1,000 mcg IM Q4W denosumab (Prolia) 60 mg subcut [id number] lisinopril 2.5 mg PO DAILY miscellaneous medical supply Elevated toilet seat with handles omeprazole 20 mg PO DAILY primidone 50 mg PO BID propranolol ER 60 mg PO DAILY HPI HPI Comments History of Present Illness Details Jocelyn comes for follow-up. She has been having trouble with her essential tremors. She says about couple weeks ago her primidone was increased to 100 mg 3 times a day. Since then she has been feeling very sleepy. Therefore she was toe that her propranolol should be discontinued to improve her sleepiness. She has done that 3 days ago. Continues to have issues with increased sleepiness. She has no heart failure symptoms. Recent echocardiogram shows LVEF of about 50-55%. She has no lightheadedness, syncope. Denies any orthopnea, PND, leg edema. 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 Mother Arthritis Son No problems noted. Daughter No problems noted. Brother No problems noted. Social History Housing: Condominium Alcohol intake: never Patient Tobacco Use Status: Never used Tobacco Tobacco use type: Cigarette e-Cigarette/Vaping Use: Never Used Second Hand Smoke Exposure: Yes Current occupational status: retired Current occupation: Retired Cognitive needs: No Hearing needs: No Vision needs: Yes Review of Systems Const Denies chills, Denies fatigue, Denies fever(s), Denies frequent falls, Denies weakness, Denies weight gain and Denies weight loss ENT Denies dizziness Card Denies chest pain, Denies leg edema, Denies lightheadedness, Denies palpitations, Denies dyspnea, Denies dyspnea on exertion, Denies orthopnea and Denies other (loss of consciousness) Resp Denies cough, Denies dyspnea and Denies dyspnea on exertion GI Denies hematochezia and Denies change in stool character Musc Denies abnormal gait, Denies muscle weakness, Denies numbness, Denies radiating pain into limb and Denies tingling Neuro Denies abnormal gait, Denies dizziness, Denies frequent falls, Denies numbness, Denies tingling and Denies weakness Endo Denies fatigue and Denies palpitations Physical Exam Vital Signs: Last Vital Signs Pulse 90 06/17/23 13:25 BP 130/80 06/17/23 13:25 BMI result Body Mass Index 23.1 Const General: cooperative, comfortable, no acute distress, alert and awake Nutritional Appearance: average body habitus and other (Frail elderly woman) Orientation/consciousness: patient oriented x3 Limitations: no limitations Neck Neck: Yes trachea midline, Yes supple and Yes no JVD Chest Chest palpation & inspection: abnormal inspection of the chest kyphotic and scol iotic Resp Effort & Inspection: normal respiratory effort Auscultation: clear to auscultation bilaterally, no rales, no wheezes and diminished lung sounds Cardio Jugular venous distension: no JVD Palpation: normal PMI Rate: regular rate Rhythm: regular rhythm Heart sounds: S1 normal heart sound present, S2 normal heart sound present, no click, no gallops, no murmurs and no rubs GI Auscultation: normal bowel sounds Skin General skin exam: no rashes or lesions noted and ecchymosis Neuro General: patient oriented x3 and no focal motor deficits Extrem General: Yes no clubbing, cyanosis or edema Office Procedures EKG Details: EKG shows normal sinus rhythm with left bundle-branch block at 90 beats per minute [id number], Complete Assessment & Plan Assessment & Plan (1) Left bundle branch block: Code(s): I44.7 - Left bundle-branch block, unspecified Plan: Chronic left bundle-branch block with prior history of cardiomyopathy. LV systolic function is near normal. Continue lisinopril therapy for neurohormonal modulation. Blood pressure is currently well optimized. Given her increased neurologic symptoms and required increasing the primidone dose to control her movement disorder, it is okay to stop her propranolol therapy at this point time. This was discussed with her. Continue monitor for signs and symptoms of heart failure. Advised to monitor blood pressure at home maintain a log and can be managed with lisinopril therapy. No other change in therapy required at this point time. Will follow up in the clinic in 1 year's time, sooner p.r.n.. Thank you for allowing me to partake in the care Medications: Changed From primidone 50 mg PO BID To primidone 100 mg PO TID Coding Level of Care Code Est Pt Level 3 (59538) Diagnoses Left bundle branch block I44.7 CPT Codes EKG - CPT: 78745-Lmbpzbdcczhzvligi, Complete ([id number])
== END 2023-06-17 13:53 | disposition home or self-care (01) ==
PROVIDERS: PCP Internal Medicine; Visit Provider Internal Medicine Cardiovascular Disease
DX: I44.7 Left bundle-branch block, unspecified (principal)
CPT/HCPCS: 93010; 99213

== ENCOUNTER → 2023-06-17 12:52 | Outpatient (BNVA) | payer MEDICARE, OTHER, SELFPAY | PROVIDERS: PCP Internal Medicine; Visit Provider Internal Medicine Cardiovascular Disease | DX: I44.7 Left bundle-branch block, unspecified (principal) | CPT/HCPCS: 93005; 99212 ==

== ENCOUNTER 2023-06-19 13:13 | Outpatient (AMB) | payer MEDICARE, OTHER, MEDICAID, SELFPAY ==
--- NOTE | 2023-06-19 13:29 | AM.OFFVISNUR ---
Intake Intake Visit Reasons: B-12 Shot Intake Note: Pt arrived for monthly B12 injection Allergies codeine Allergy (Unknown, Verified 05/17/23 09:28) Unknown Office Meds cyanocobalamin (vitamin B-12) 1,000 mcg/mL injection solution Performing Provider: Magy Romero MD Performing Location: [facility] [place] [facility] Primary Care-[facility] Administered by: Candice Quevedo RN on 06/19/23 13:29 Dose Route Admin Location Dispensed Lot Number Expiration Date [facility] Senior Electronics Engineer 1,000 mcg IM right deltoid 1 mL [id number] 12/25/23 99091-409-28 [facility] Comments: Pt supplied Coding Assessment & Plan Assessment & Plan Orders: Orders AMB Vitamin B12 Injection Patient Supplied Today E53.8 - Deficiency of other specified B group vitamins
== END 2023-06-19 15:51 | disposition home or self-care (01) ==
PROVIDERS: PCP Internal Medicine; Visit Provider Internal Medicine
DX: E53.8 Deficiency of other specified B group vitamins (principal)
CPT/HCPCS: 96372; J3420

== ENCOUNTER 2023-07-10 10:58 | Emergency (ER) | payer MEDICARE, OTHER, MEDICAID, SELFPAY ==
--- NOTE | 2023-07-10 11:07 | PC.NURSE ---
Patient reports not feeling well since saturday. Reports started with congestion and an upset stomach. Reports all over body aches since Saturday. Attempted to take an darcy selter and vomited x1. Reports loose stools for the last few days. Denies sob or chest pain.
[2023-07-10 11:09] VITALS: BP 160/80; BP 161/72; PULSE 68; PULSE 78; RESP 16; TEMP 36.6; O2SAT 98; BMI 23.7
--- NOTE | 2023-07-10 11:15 | ED.GENADULT ---
HPI - General Adult General Chief complaint: General Medical Stated complaint: body aches Time Seen by Provider: 07/10/23 11:10 Source: patient and EMS Mode of arrival: EMS Limitations: no limitations History of Present Illness HPI narrative: Patient is an 87 year old assigned female at with a history of CAD and HTN presenting to the emergency department today with body aches, nausea, and weakness. Patient states that over the last few days she has felt progressively unwell with nausea, body aches, and weakness. Patient denies any dizziness, lightheadedness, abdominal pain, vomiting, fever, chills, blurry vision, double vision, loss of vision, chest pain, difficulty breathing, shortness of breath, back pain, night sweats, pain with urination, increased urinary frequency, increased urinary urgency, blood in her urine or stool, syncope or a near syncopal episode, recent trauma or falls, bowel incontinence, bladder incontinence, bowel retention, bladder retention, or any other complaints at this time. Onset (ago): day(s) Severity: mild Severity scale (1-10): 2 Relieving factors: none Exacerbating factors: none Associated symptoms: nausea/vomiting and weakness Treatments prior to arrival: none Related Data Home Medications Medication Instructions Recorded Confirmed calcium carbonate 500 mg calcium 500 mg PO DAILY 05/25/20 06/17/23 (1,250 mg) tablet (Calcium 500) denosumab 60 mg/mL subcutaneous 60 mg subcut [id number] 05/25/20 06/17/23 syringe (Prolia) acetaminophen 500 mg tablet 500 mg PO QPM PRN pain 05/17/23 06/17/23 (Tylenol Extra Strength) lisinopril 2.5 mg tablet 2.5 mg PO DAILY 06/17/23 06/17/23 primidone 50 mg tablet 100 mg PO TID 06/17/23 06/17/23 Previous Rx's Medication Instructions Recorded cyanocobalamin (vitamin B-12) 1,000 mcg IM Q4W #10 mL 03/27/23 1,000 mcg/mL injection solution omeprazole 20 mg capsule,delayed 20 mg PO DAILY #90 caps 03/27/23 release miscellaneous medical supply #1 ea 05/07/23 buspirone 7.5 mg tablet 7.5 mg PO .qhs #90 tabs 05/17/23 celecoxib 200 mg capsule 200 mg PO DAILY PRN pain (scale 05/17/23 score 7-10) #90 caps Allergies Allergy/AdvReac Type Severity Reaction Status Date / Time No Known Allergies Allergy Verified 07/10/23 11:14 Review of Systems Constitutional: Constitutional: Reports no additional constitutional complaints, Reports body ache(s), Denies chills, Denies fever(s), Denies night sweats and Reports weakness Eyes: Eyes: Reports no additional eye complaints, Denies blurry vision, Denies change in vision, Denies diplopia, Denies eye discharge, Denies loss of vision and Denies eye pain ENT: Denies dizziness Cardiovascular: Cardiovascular: Reports no additional cardiovascular complaints, Denies chest pain, Denies lightheadedness, Denies Loss of Consciousness and Denies dyspnea Respiratory: Respiratory: Reports no additional respiratory complaints and Denies dyspnea Gastrointestinal: Gastrointestinal: Reports no additional gastrointestinal complaints, Denies abdominal pain, Denies melena, Denies hematochezia, Denies change in bowel habits, Denies change in stool character and Reports nausea Genitourinary: Genitourinary: Denies hematuria, Denies urinary frequency, Denies dysuria, Denies urinary incontinence, Denies urinary hesitancy and Denies urinary urgency Musculoskeletal: Musculoskeletal: Reports no additional musculoskeletal complaints, Denies numbness and Denies tingling Neurologic: Denies dizziness, Denies loss of vision, Denies numbness, Denies tingling and Reports weakness Psychiatric: Psychiatric: Reports no additional psychiatric complaints Endocrine: Endocrine: Reports no additional endocrine complaints Hematologic/Lymphatic: Hematologic/Lymphatic: Reports no additional hematologic/lymphatic complaints Allergic/Immunologic: Allergic/Immunologic: Reports no additional allergic/immunologic complaints [facility] Past Medical History Attestation statement: The following information was validated with the patient. 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 Mother Arthritis Son No problems noted. Daughter No problems noted. Brother No problems noted. Social History Social History Housing: Condominium Alcohol intake: former Patient Tobacco Use Status: Never used Tobacco Tobacco use type: Cigarette Smoked in Last 30 Days: No e-Cigarette/Vaping Use: Never Used Second Hand Smoke Exposure: Yes Use of substances other than those prescribed or required for medical reasons: No Advance Directives: Yes Advance Directives Information Provided: Yes Advance Directives on File: No Current occupational status: retired Current occupation: Retired Cognitive needs: No Hearing needs: No Vision needs: Yes Physical Exam ED Vital Signs: Vital Signs - 24 hr 07/10/23 11:09 Temperature 98 F Pulse Rate 68 Respiratory Rate 16 Blood Pressure 161/72 H Pulse Oximetry 98 Oxygen Delivery Method Room Air BMI result Body Mass Index 23.7 Const General: cooperative, no acute distress, alert and awake Nutritional Appearance: well nourished Orientation/consciousness: patient oriented x3 Limitations: no limitations HENMT Head: Yes normal to inspection and Yes atraumatic Ears: hearing grossly normal bilaterally and external ears normal General nose exam: Normal external nose present, no nasal discharge noted and no epistaxis Face and sinus: Yes normal facial exam, No abrasion and No laceration Mouth: Normal oral and palatal mucosa present, no drooling and no muffled voice Eyes General: appearance normal, both eyes and all related structures Periorbital: periorbital findings normal Eyelids: Yes eyelids normal Conjunctivae: conjunctivae normal Pupils: Equal, round and reactive pupils present EOM: EOMs intact bilaterally Neck Neck: Yes normal visual inspection, Yes full ROM and Yes no lymphadenopathy Chest Chest palpation & inspection: normal inspection of the chest Resp Effort & Inspection: normal respiratory effort and able to speak in complete sentences Auscultation: clear to auscultation bilaterally Cardio Rate: regular rate Rhythm: regular rhythm GI Inspection: Yes normal to inspection Neuro General: patient oriented x3 and moves all extremities Cranial nerves: Yes Equal, round and reactive pupils present Cognition (Neuro): normal cognition Motor exam (neuro): 5/5 motor strength present throughout Sensory Exam: Normal double simultaneous stimulation for sensation Coordination: [id number] test normal Extrem General: Yes normal to inspection, Yes full ROM and Yes capillary refill normal Psych Appearance: grossly normal Mental Status: mental status grossly normal Affect: normal affect Attitude: cooperative Thought process: Normal thought process present Thought content: Normal thought content present Insight: Good insight present (Psych) Medications Administered Discontinued Medications Generic Name Dose Route Start Last Admin Trade Name [place]ba PRN Reason Stop Dose Admin Sodium Chloride 1,000 mls @ 999 mls/hr 07/10/23 11:45 07/10/23 11:38 Ns IV 07/10/23 12:45 999 mls/hr .Q1H1M DAWNA Administration Ondansetron HCl 4 mg 07/10/23 11:32 07/10/23 11:38 Ondansetron Hcl 4 Mg/2 Ml Vial IVPUSH 07/10/23 11:33 4 mg ONCE ONE Administration Medical Decision Making Medical Decision Making [facility] Narrative: Patient is an 87 year old assigned female at with a history of CAD and HTN presenting to the emergency department today with nausea, body aches, and weakness. Patient's physical exam was unremarkable. Patient's blood work was unremarkable. Patient's urine showed no acute process. Patient's influenza and RSV tests were negative. Patient's COVID-19 test was positive. I explained my physical exam findings as well as all test results to the patient. I answered all questions asked by the patient. I stressed the importance of the patient taking her medication as prescribed. I stressed the importance of the patient following up with her primary care provider. I stressed the importance of the patient returning to the emergency department immediately if her symptoms were to worsen or if she were to develop any dizziness, shortness of breath, difficulty breathing, chest pain, blurry vision, loss of vision, nausea, vomiting, abdominal pain, fever, chills, back pain, or any other complaints. Patient verbalized agreement and understanding with this treatment plan and discharge. Differential Diagnosis Differential Diagnoses: The differential diagnosis associated with the presentation includes COVID-19 RSV Influenza URI Admission/Observation Consideration of admission/observation: Escalation of care including admission/observation considered Patient would have been admitted to the hospital had her work up had any findings where hospital admission was appropriate and her clinical presentation warranted hospital admission. Lab Data MDM Lab Attestation statement: I reviewed the patient's lab results. My interpretation of these results are in the [facility] Rationale portion of this note. 07/10/23 11:27 07/10/23 11:27 Labs: Lab Results 07/10/23 07/10/23 07/10/23 Range/Units 11: 11:27 13:04 WBC 4.7 L (4.8-10.8) X10*3/uL RBC 3.72 L (4.20-5.50) X10*6/uL Hgb 11.8 L (12.0-16.0) g/dl Hct 36.7 L (37.0-47.0) % MCV 98.7 H (80.0-98.0) fL MCH 31.7 (27.0-33.0) pg MCHC 32.2 (31.0-35.0) g/dl RDW 13.4 (11.0-16.0) % Plt Count 174 (160-400) X10*3/uL MPV 10.6 (9.4-12.3) fL Immature Gran % (Auto) 0.2 (0.0-0.4) % Neut % (Auto) 64.0 (45-73) % Lymph % (Auto) 26.2 (20-40) % [place] % (Auto) 8.6 (2-11) % Eos % (Auto) 0.8 (0-4) % Baso % (Auto) 0.2 (0-2) % Lymph # (Auto) 1.2 (1.2-4.9) X10*3/uL [place] # (Auto) 0.4 (0.1-1.2) X10*3/uL Eos # (Auto) 0.0 (0.0-0.4) X10*3/uL Baso # (Auto) 0.0 (0.0-0.2) X10*3/uL Abs Immat Gran (auto) 0.01 (0.00-0.03) X10*3/uL Absolute Neuts (auto) 3.0 (2.0-8.3) x10*3/uL Absolute Nucleated RBC 0.000 (0.0-0.012) X10*3/uL Nucleated RBC % (auto) 0.0 (0.0-0.2) /100WBC Sodium 136 (135-145) mmol/L Potassium 4.5 (3.3-5.1) mmol/L Chloride 105 (96-108) mmol/L Carbon Dioxide 26 (22-29) mmol/L Anion Gap 10 L (12-20) BUN 18 H (9-16) mg/dL Creatinine 0.95 (0.5-1.4) mg/dL Estim Creat Clear Calc 38.3 Estimated GFR 56 Random Glucose 82 (60-115) mg/dL Calcium 8.9 (8.4-10.2) mg/dL Magnesium 2.0 (1.6-2.6) mg/dL Total Bilirubin 0.3 (0.0-1.0) mg/dL AST 24 (5-31) U/L ALT 17 (0-31) U/L Alkaline Phosphatase 61 (39-117) U/L Total Protein 6.5 (6.5-8.0) g/dL Albumin 3.7 (3.5-5.0) g/dL Urine Color Yellow Urine Appearance Clear Urine pH 5.5 (5.0-9.0) Ur Specific [place] 1.025 (1.005-1.025) Urine Protein Negative (Neg-Trace) mg/dL Urine Glucose (UA) Negative (Negative) mg/dL Urine Ketones 15 (Negative) mg/dL Urine Blood Trace H (Negative) Urine Nitrite Negative (Negative) Ur Leukocyte Esterase Negative (Negative) Urine RBC 6-10 H (0-2) /HPF Urine WBC 0-5 (0-5) /HPF Ur Squamous Epith Cells 3-5 (0-2) /HPF Urine Bacteria None Seen (None Seen) Hyaline Casts 0-2 (0-2) /LPF Influenza Type A (PCR) NEGATIVE (Negative) Influenza Type B (PCR) NEGATIVE (Negative) RSV RNA Qual (PCR) NEGATIVE (Negative) SARS-CoV-2 RNA (RT-PCR) POSITIVE A (Negative) S. pyogenes GrpA SHEKHAR Negative (Negative) Independent Historian Clinical information obtained from an independent historian. History obtained from or confirmed by: EMS (EMS provided additional history and confirmed the history provided by the patient.) Prescription Management I considered prescription management with: Antiviral (considered paxlovid however, per the patient, she has medication conflictions.) Chronic Conditions Patient?s care impacted by: Hypertension Discharge Plan Discharge Clinical Impression: COVID-19 Patient Disposition: Home, Self-Care Instructions: COVID-19 (Coronavirus Disease 2019) (ED) Additional Instructions: Follow up with your primary care provider. Return to the emergency department immediately if your symptoms worsen or if you develop any dizziness, shortness of breath, difficulty breathing, chest pain, blurry vision, loss of vision, nausea, vomiting, abdominal pain, fever, chills, back pain, or any other complaints. Prescriptions: No Action cyanocobalamin (vitamin B-12) 1,000 mcg/mL solution 1,000 mcg IM Q4W Qty: 10 3RF omeprazole 20 mg capsule,delayed release(DR/EC) 20 mg PO DAILY Qty: 90 1RF (DME) miscellaneous medical supply Misc See Rx Instructions .Route Qty: 1 0RF Rx Instructions: Elevated toilet seat with handles buspirone 7.5 mg tablet 7.5 mg PO .qhs Qty: 90 2RF celecoxib 200 mg capsule 200 mg PO DAILY PRN (Reason: pain (scale score 7-10)) Qty: 90 0RF acetaminophen [Tylenol Extra Strength] 500 mg tablet 500 mg PO QPM PRN (Reason: pain) Prolia 60 mg/mL syringe 60 mg subcut [id number] calcium carbonate [Calcium 500] 500 mg calcium (1,250 mg) tablet 500 mg PO DAILY lisinopril 2.5 mg tablet 2.5 mg PO DAILY primidone 50 mg tablet 100 mg PO TID Referrals: Magy Romero MD [Primary Care Provider] - Interventions: ED Discharge Assessment Last Done: 07/10/23 13:28 Print Language: Cook Islander
[2023-07-10 11:32] LABS: MANUAL DIFF FLAG NO
[2023-07-10 11:34] LABS: Basophils Percent Auto 0.2 % (0-2); Eosinophils Percent Auto 0.8 % (0-4); Hematocrit 36.7 % (37.0-47.0); Hemoglobin 11.8 g/dl (12.0-16.0); Imm Gran Abs Auto 0.01 X10*3/uL (0.00-0.03); Imm Gran Pct Auto 0.2 % (0.0-0.4); Lymphocytes Absolute Auto 1.2 X10*3/uL (1.2-4.9); Lymphocytes Percent Auto 26.2 % (20-40); Mean Corpuscular HGB Conc 32.2 g/dl (31.0-35.0); Mean Corpuscular Hemoglobin 31.7 pg (27.0-33.0); Mean Corpuscular Volume 98.7 fL (80.0-98.0); Mean Platelet Volume 10.6 fL (9.4-12.3); Monocytes Absolute Auto 0.4 X10*3/uL (0.1-1.2); Monocytes Percent Auto 8.6 % (2-11); Platelet Count 174 X10*3/uL (160-400); Red Blood Count 3.72 X10*6/uL (4.20-5.50); Red Cell Distribution Width 13.4 % (11.0-16.0); White Blood Count 4.7 X10*3/uL (4.8-10.8)
[2023-07-10] MEDS: ondansetron HCL 4 MG/2 ML VIAL IVPUSH (11:38)
[2023-07-10] MEDS: 0.9 % Sodium Chloride 1,000 ML 999 ML IV (11:38)
[2023-07-10 11:50] LABS: IDNOW Serial# 08D9AD1C; Strep A Nucleic Acid Negative (Negative)
[2023-07-10 11:52] LABS: Alanine Aminotransferase 17 U/L (0-31); Albumin Level 3.7 g/dL (3.5-5.0); Alkaline Phosphatase 61 U/L (39-117); Anion Gap 10 (12-20); Aspartate Amino Transferase 24 U/L (5-31); Bilirubin Total 0.3 mg/dL (0.0-1.0); Blood Urea Nitrogen 18 mg/dL (9-16); Calcium 8.9 mg/dL (8.4-10.2); Carbon Dioxide 26 mmol/L (22-29); Chloride 105 mmol/L (96-108); Creatinine Clr Calc Pharmacy 38.3; Estimated Glomerular Filt Rate 56; Glucose Random 82 mg/dL (60-115); Potassium 4.5 mmol/L (3.3-5.1); Sodium 136 mmol/L (135-145); Total Protein 6.5 g/dL (6.5-8.0)
[2023-07-10 12:13] LABS: Influenza A PCR NEGATIVE (Negative); Influenza B PCR NEGATIVE (Negative); Resp Syncy Virus RNA Qual PCR NEGATIVE (Negative); SARS COV2 PCR INHOUSE POSITIVE (Negative)
[2023-07-10 13:09] LABS: Appearance Urine Clear; Color Urine Yellow; Glucose Urine UA Negative (Negative); Leukocyte Esterase Urine Negative (Negative); Nitrite Urine Negative (Negative); PH 5.5 (5.0-9.0); Specific Gravity - Urine 1.025 (1.005-1.025); UMIC TRIGGER UACC YES; Urine Blood Trace (Negative); Urine Ketones 15 mg/dL (Negative); Urine Protein Negative (Neg-Trace)
[2023-07-10 13:14] LABS: Bacteria Urine None Seen (None Seen); Hyaline Casts Urine 0-2 /LPF (0-2); WBC Urine 0-5 /HPF (0-5)
--- NOTE | 2023-07-10 13:40 | PC.NURSE ---
Patient reports unable to find a ride to bring her home. Granddaughter eddy called stating she or her mother will come get her
== END 2023-07-10 14:49 | disposition home or self-care (01) ==
PROVIDERS: Physician Assistant Medical; Emergency Provider Emergency Medicine Emergency Medical Services; PCP Internal Medicine
DX: U07.1 COVID-19 (principal); R11.2 Nausea with vomiting, unspecified; M79.10 Myalgia, unspecified site; I25.10 Atherosclerotic heart disease of native coronary artery without angina pectoris; R53.1 Weakness; Z79.899 Other long term (current) drug therapy
CPT/HCPCS: 0241U; 80053; 81001; 83735; 85025; 87651; 96361; 96374; 99284; J2405

== ENCOUNTER 2023-07-16 12:47 | Outpatient (AMB) | payer MEDICARE, OTHER, MEDICAID, SELFPAY ==
--- NOTE | 2023-07-16 13:03 | AM.OFFVISNUR ---
Intake Intake Visit Reasons: B-12 Shot Intake Note: Pt arrived for monthly B-12 injection Allergies No Known Allergies Allergy (Verified 07/10/23 11:14) Office Meds cyanocobalamin (vitamin B-12) 1,000 mcg/mL injection solution Performing Provider: Magy Romero MD Performing Location[place] [facility] [place] [facility] Administered by: Candice Quevedo RN on 07/16/23 13:04 Dose Route Admin Location Dispensed Lot Number Expiration Date ND Associate Professor Of Sociology 1,000 mcg IM left deltoid 1 mL [id number] 12/25/23 21984-349-46 [facility] Comments: Pt supplied Coding Assessment & Plan Assessment & Plan Orders: Orders AMB Vitamin B12 Injection Patient Supplied Today E53.8 - Deficiency of other specified B group vitamins
== END 2023-07-16 13:46 | disposition home or self-care (01) ==
PROVIDERS: PCP Internal Medicine; Visit Provider Internal Medicine
DX: E53.8 Deficiency of other specified B group vitamins (principal)
CPT/HCPCS: 96372; J3420

== ENCOUNTER 2023-08-14 12:41 | Outpatient (AMB) | payer MEDICARE, OTHER, MEDICAID, SELFPAY ==
--- NOTE | 2023-08-14 12:55 | AM.OFFVISNUR ---
Intake Intake Visit Reasons: B-12 Shot Intake Note: Pt arrived for monthly B-12 injection Allergies No Known Allergies Allergy (Verified 07/10/23 11:14) Office Meds cyanocobalamin (vitamin B-12) 1,000 mcg/mL injection solution Performing Provider: Magy Romero MD Performing Location: [facility] [place] [facility] Administered by: Candice Quevedo RN on 08/14/23 12:55 Dose Route Admin Location Dispensed Lot Number Expiration Date ND Cold Rolling Coordinator 1,000 mcg IM right deltoid 1 mL [id number] 12/25/23 64601-700-93 [facility] Comments: Pt supplied Coding Assessment & Plan Assessment & Plan Orders: Orders AMB Vitamin B12 Injection Patient Supplied Today E53.8 - Deficiency of other specified B group vitamins Medications: Refilled omeprazole 20 mg PO DAILY 30 caps 0RF
== END 2023-08-14 16:15 | disposition home or self-care (01) ==
PROVIDERS: PCP Internal Medicine; Visit Provider Internal Medicine
DX: E53.8 Deficiency of other specified B group vitamins (principal)
CPT/HCPCS: 96372; J3420

== ENCOUNTER 2023-09-09 10:57 | Outpatient (AMB) | payer MEDICARE, OTHER, MEDICAID, SELFPAY ==
[2023-09-09 11:04] VITALS: BP 110/72; PULSE 67; TEMP 36.3; O2SAT 96
--- NOTE | 2023-09-09 11:04 | AM.OFFWIN_ITS ---
Intake Vital Signs 09/09/23 11:04 Height 5 ft 5 in BP 110/72 Blood Pressure Location Rt brachial Position Sitting Pulse 67 Pulse Source Pulse Oximeter Temp 97.4 F Temp Source Oral Pulse Oximetry (%) 96 Oxygen Delivery Method Room Air Intake Visit Reasons: EST/right side pain from falling(lobby) Intake Note: pt is here for c/o right side pain, and groin pain, on and off headaches, fell about 4 days to 1 week ago roughly. Patient Tobacco Use Status: Never used Tobacco Allergies No Known Allergies Allergy (Verified 09/09/23 11:07) Do you need a note to return to daycare/school/sports/work: No HPI HPI Comments History of Present Illness Details 1154 87 yo f presents s/p fall a few days ago onto her right side. She reports she fell on ice and landed in snow and was unable to get up for a while, she hit her right side unclear if she hit her head or lost consciousness. She reports she has a lot of pain history of pelvic fracture this feels similar. Has not been able to ambulate much and feels like she needs more help at home. Has been having intermittent headaches since then. Difficulty ambulating. No urinary or bowel incontinence/retention no saddle paresthesias no weakness chest pain, shortness of breath nausea, vomiting. Physical exam significant tenderness to palpation to ribs 6 through 11 on the right side and discomfort with palpation of right-sided pelvis throughout. Difficulty with ambulation in a lot of pain. Concerns for possible pelvic fracture and or rib fractures. Patient fragile due to age, recommend CT scan to rule these out x-ray has low sensitivity to these fractures. Patient requires extra help at home, I can not provide this in an emergency department setting. I explained her she should go to the emergency department. She is concerned about her vehicle, she states she is going to go home and call 911 right away. Patient does not appear to be in acute respiratory distress at this time. Just looks very uncomfortable secondary to pain Plan patient to be discharged she will call an ambulance from her house and drop off her car. 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 Mother Arthritis Son No problems noted. Daughter No problems noted. Brother No problems noted. Social History [facility] Alcohol intake: former Patient Tobacco Use Status: Never used Tobacco Tobacco use type: Cigarette e-Cigarette/Vaping Use: Never Used Second Hand Smoke Exposure: Yes Current occupational status: retired Current occupation: Retired Cognitive needs: No Hearing needs: No Vision needs: Yes Review of Systems Const All systems reviewed & are unremarkable except as noted in HPI and below Physical Exam Vital Signs: Last Vital Signs Temp 97.4 F 09/09/23 11:04 Pulse 67 09/09/23 11:04 BP 110/72 09/09/23 11:04 Pulse Ox 96 09/09/23 11:04 Oxygen Delivery Method Room Air 09/09/23 11:04 vss Appearance: Alert.? Oriented X3.? No acute distress.? Head: Normocephalic, atraumatic, no step-offs or deformities Eyes: Pupils equal, round and reactive to light.? CVS: Normal heart rate and rhythm.? Pulses normal.? Respiratory: No respiratory distress.? Breath sounds normal.? Abdomen: Soft and nontender.? Skin: Skin warm and dry.? Normal skin color.? Normal skin turgor.? Extremities: No lower extremity edema.? No calf ttp. 5/5 strength to bilateral upper and lower extremities + significant tenderness to palpation to ribs 6 through 11 on the right side and discomfort with palpation of right-sided pelvis throughout. Difficulty with ambulation in a lot of pain. Neuro: Oriented X 3.? No motor deficit.? No sensory deficit. CN 2-12 intact Office Meds cyanocobalamin (vitamin B-12) 1,000 mcg/mL injection solution Performing Provider: WENDI Vázquez Performing Location: [facility] Administered by: Candice Quevedo RN on 09/09/23 11:55 Dose Route Admin Location Dispensed Lot Number Expiration Date NDC Structural Analysis Engineer 1,000 mcg IM Right deltoid 1 mL [id number] 06/26/24 [id number] [facility] Comments: Pt supplied Assessment & Plan Assessment & Plan (1) Rib pain on right side: Code(s): R07.81 - Pleurodynia (2) Fall due to ice or snow: Code(s): W00.9XXA - Unspecified fall due to ice and snow, initial encounter Plan Take your medications as prescribed. If you were prescribed antibiotics today, it is important that you take your medication to their entirety, do not skip any doses, do not finish them early. Follow-up with your primary care provider this week. Return to the emergency department with new or worsening symptoms. Such as fevers, chills, chest pain, shortness of breath, nausea, vomiting, dizziness, headache, vision changes, lethargy In case of emergency call 911 Coding Level of Care Code Est Pt Level 3 (66694) Diagnoses Rib pain on right side R07.81 Fall due to ice or snow W00.9XXA
== END 2023-09-09 12:00 | disposition home or self-care (01) ==
PROVIDERS: PCP Internal Medicine; Visit Provider Physician Assistant
DX: R07.81 Pleurodynia (principal); W00.9XXA Unspecified fall due to ice and snow, initial encounter; E53.8 Deficiency of other specified B group vitamins
CPT/HCPCS: 96372; 99213; J3420

== ENCOUNTER 2023-09-09 12:54 | Emergency (ER) | payer MEDICARE, OTHER, MEDICAID, SELFPAY ==
--- NOTE | ~2023-09-09 | CT_ITS ---
EXAMINATION: CT CERVICAL SPINE WITHOUT CONTRAST CLINICAL INFORMATION: Pain. Fall. COMPARISON: Previous cervical spine x-ray September 2015 TECHNIQUE: Axial images through the cervical spine without IV contrast. Sagittal and coronal reconstructions on the technologist workstation This CT examination was performed using dose optimization techniques as appropriate, variously including the following: *Automated exposure control *Adjustment of mA and/or kV according to patient size (this includes techniques or standardized protocols for targeted exams where dose is matched to indication/reason for exam; i.e. extremities or head) *Use of iterative reconstruction technique DLP: 220 mGy-cm FINDINGS: Bone alignment is normal. No fracture or dislocation. Multilevel degenerative spondylosis and degenerative disc disease from C3-C4 to C7-T1, greatest at C5-C6 and C6-C7. Degenerative changes at the C1 dens articulation. Mild bilateral facet arthritis. Prevertebral soft tissues are normal. 1 cm right thyroid nodule. The left thyroid gland appears small. No imaging follow-up recommended. Bilateral carotid calcification. Sphenoid sinus disease. Lung apices are clear. CT/CT cervical spine wo IV con IMPRESSION: Degenerative changes. No fracture or dislocation. Fleischner guidelines were followed.
--- NOTE | ~2023-09-09 | CT_ITS ---
EXAMINATION: CT PELVIS WITHOUT CONTRAST CLINICAL INFORMATION: Fall. Pain. Rule out pelvic fracture. COMPARISON: Previous CT of the abdomen and pelvis February 2022 TECHNIQUE: Helical scanning was performed with submillimeter collimation through the pelvis. Sagittal and coronal multiplanar 2-D reconstructions were obtained. This CT examination was performed using dose optimization techniques as appropriate, variously including the following: *Automated exposure control *Adjustment of mA and/or kV according to patient size (this includes techniques or standardized protocols for targeted exams where dose is matched to indication/reason for exam; i.e. extremities or head) *Use of iterative reconstruction technique DLP: 463 mGy-cm FINDINGS: Diverticulosis of the colon. No evidence of diverticulitis. Normal appendix. Small amount of fluid in the pelvis. Normal bladder. Atherosclerotic disease. Small umbilical hernia containing fat. OSSEOUS STRUCTURES: No fracture or dislocation. Mild degenerative changes of both hip joints with small osteophytes. Scoliosis and degenerative changes of the lower lumbar spine. 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 CT/CT pelvis wo IV con IMPRESSION: No fracture or dislocation. Mild degenerative changes of both hip joints. Scoliosis and degenerative changes of the lower lumbar spine. 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
--- NOTE | ~2023-09-09 | CT_ITS ---
EXAMINATION: CT HEAD WITHOUT CONTRAST CLINICAL INFORMATION: Fall. Pain. COMPARISON: Previous head CT most recent January 2007 TECHNIQUE: Contiguous axial imaging was performed from the skull base to vertex without intravenous administration of contrast. This CT examination was performed using dose optimization techniques as appropriate, variously including the following: *Automated exposure control *Adjustment of mA and/or kV according to patient size (this includes techniques or standardized protocols for targeted exams where dose is matched to indication/reason for exam; i.e. extremities or head) *Use of iterative reconstruction technique DLP: 482 mGy-cm FINDINGS: There is no evidence of an extra-axial collection. There is no evidence of intra-axial or extra-axial hemorrhage. The ventricles and extra-axial CSF spaces are prominent suggestive of generalized atrophy. There is is nonspecific periventricular white matter disease. No mass, mass effect or infarct. There is sphenoid sinus disease. No skull fracture. CT/CT head/brain wo IV con IMPRESSION: No acute findings. Generalized atrophy and nonspecific periventricular white matter disease. Inflammatory changes in the sphenoid sinus
[2023-09-09 13:09] VITALS: BP 160/82; BP 171/75; PULSE 71; PULSE 95; RESP 18; TEMP 36.4; O2SAT 100; O2SAT 94; BMI 20.9
--- NOTE | 2023-09-09 13:24 | ED_ITS ---
HPI - General Adult General Chief complaint: Fall Stated complaint: R SIDE TO GROIN PAIN S/P FALL 1 WK AGO PER EMS Time Seen by Provider: 09/09/23 13:23 Source: patient and EMS Mode of arrival: EMS Limitations: no limitations History of Present Illness HPI narrative: Patient is an 87 year old assigned female at with a history of chronic right hip pain presenting to the emergency department today with an episode of right hip pain. Patient states that she fell on her right hip on 09/02/2022 and continues to have pain. Patient denies any loss of consciousness, head strike, dizziness, lightheadedness, abdominal pain, nausea, vomiting, fever, chills, blurry vision, double vision, loss of vision, chest pain, difficulty breathing, shortness of breath, back pain, night sweats, pain with urination, increased u rinary frequency, increased urinary urgency, blood in her urine or stool, syncope or a near syncopal episode, bowel incontinence, bladder incontinence, bowel retention, bladder retention, or any other complaints at this time. Onset (ago): week(s) (1) Location: right and lower extremity Severity: mild Severity scale (1-10): 3 Relieving factors: none Exacerbating factors: none Associated symptoms: denies other symptoms Treatments prior to arrival: none Related Data Home Medications Medication Instructions Recorded Confirmed calcium carbonate 500 mg calcium 500 mg PO DAILY 05/25/20 06/17/23 (1,250 mg) tablet (Calcium 500) denosumab 60 mg/mL subcutaneous 60 mg subcut [id number] 05/25/20 06/17/23 syringe (Prolia) acetaminophen 500 mg tablet 500 mg PO QPM PRN pain 05/17/23 06/17/23 (Tylenol Extra Strength) primidone 50 mg tablet 100 mg PO TID 06/17/23 06/17/23 propranolol 60 mg capsule,24 60 mg PO DAILY 09/09/23 hr,extended release Previous Rx's Medication Instructions Recorded miscellaneous medical supply #1 ea 05/07/23 buspirone 7.5 mg tablet 7.5 mg PO .qhs #90 tabs 05/17/23 cyanocobalamin (vitamin B-12) 1,000 mcg IM Q4W #1 mL 07/15/23 1,000 mcg/mL injection solution celecoxib 200 mg capsule 200 mg PO DAILY PRN pain (scale 12/17/23 score 7-10) #90 caps omeprazole 20 mg capsule,delayed 20 mg PO DAILY #30 caps 08/14/23 release lisinopril 2.5 mg tablet 2.5 mg PO DAILY #90 tabs 09/06/23 Allergies Allergy/AdvReac Type Severity Reaction Status Date / Time No Known Allergies Allergy Verified 09/09/23 11:07 Review of Systems Constitutional: Constitutional: Reports no additional constitutional complaints, Denies chills, Denies fever(s) and Denies night sweats Eyes: Eyes: Reports no additional eye complaints, Denies blurry vision, Denies change in vision, Denies diplopia, Denies eye discharge, Denies loss of vision and Denies eye pain ENT: Denies dizziness Cardiovascular: Cardiovascular: Reports no additional cardiovascular complaints, Denies chest pain, Denies lightheadedness, Denies Loss of Consciousness and Denies dyspnea Respiratory: Respiratory: Reports no additional respiratory complaints and Denies dyspnea Gastrointestinal: Gastrointestinal: Reports no additional gastrointestinal complaints, Denies abdominal pain, Denies melena, Denies hematochezia, Denies change in bowel habits and Denies change in stool character Genitourinary: Genitourinary: Denies hematuria, Denies urinary frequency, Den ies dysuria, Denies urinary incontinence, Denies urinary hesitancy and Denies urinary urgency Musculoskeletal: Musculoskeletal: Reports no additional musculoskeletal complaints, Denies numbness and Denies tingling Comments: right hip pain Neurologic: Denies dizziness, Denies loss of vision, Denies numbness and Denies tingling Psychiatric: Psychiatric: Reports no additional psychiatric complaints Endocrine: Endocrine: Reports no additional endocrine complaints Hematologic/Lymphatic: Hematologic/Lymphatic: Reports no additional hematologic/lymphatic complaints Allergic/Immunologic: Allergic/Immunologic: Reports no additional allergic/immunologic complaints PMFSH Past Medical History Attestation statement: The following information was validated with the patient. Source: old records reviewed and nursing notes reviewed Onset Date is defined in the Problem List Problems that require an onset date and time if occurred within 24 hrs of arrival to the ED Aortic Dissection and Rupture; Neurologic impairment; Cardiopulmonary Arrest; Endotracheal Intubation; Insertion or Replacement of Mechanical Circulatory Assist Device Medical History COVID-19 Word finding difficulty Vitamin B12 deficiency Osteoarthritis, hip, bilateral Dextroscoliosis of thoracolumbar spine Facial skin lesion Generalized anxiety disorder Dyspnea on exertion Left bundle branch block Chronic right hip pain Acquired renal cyst of left kidney 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 Mother Arthritis Son No problems noted. Daughter No problems noted. Brother No problems noted. Social History Social History [facility] Alcohol intake: former Patient Tobacco Use Status: Never used Tobacco Tobacco use type: Cigarette e-Cigarette/Vaping Use: Never Used Second Hand Smoke Exposure: Yes Advance Directives: No Advance Directives Information Provided: No Current occupational status: retired Current occupation: Retired Cognitive needs: No Hearing needs: No Vision needs: Yes Physical Exam ED Vital Signs: Vital Signs - 24 hr 09/09/23 13:09 Temperature 97.6 F Pulse Rate 71 Respiratory Rate 18 Blood Pressure 171/75 H Pulse Oximetry 100 Oxygen Delivery Method Room Air BMI result Body Mass Index 20.9 Const General: cooperative, no acute distress, alert and awake Nutritional Appearance: well nourished Orientation/consciousness: patient oriented x3 Limitations: no limitations [facility] Head: Yes normal to inspection and Yes atraumatic Ears: hearing grossly normal bilaterally and external ears normal General nose exam: Normal external nose present, no nasal discharge noted and no epistaxis Face and sinus: Yes normal facial exam, No abrasion and No laceration Mouth: Normal oral and palatal mucosa present, no drooling and no muffled voice Eyes General: appearance normal, both eyes and all related structures Periorbital: periorbital findings normal Eyelids: Yes eyelids normal Conjunctivae: conjunctivae normal Pupils: Equal, round and reactive pupils present EOM: EOMs intact bilaterally Neck Neck: Yes normal visual inspection, Yes full ROM and Yes no lymphadenopathy Chest Chest palpation & inspection: normal inspection of the chest Resp Effort & Inspection: normal respiratory effort and able to speak in complete sentences GI Inspection: Yes normal to inspection General: Yes no CVA tenderness Back/Spine/Pelvis Back: no CVA tenderness Cervical Spine: normal cervical lordosis and cervical ROM normal Thoracic/Lumbar Spine: thoracic and lumbar spine normal to inspection Pelvis: no pain with anterior-posterior compression Neuro General: patient oriented x3 and moves all extremities Cranial nerves: Yes Equal, round and reactive pupils present Cognition (Neuro): normal cognition Motor exam (neuro): 5/5 motor strength present throughout Sensory Exam: Normal double simultaneous stimulation for sensation Coordination: [id number] test normal Extrem General: Yes normal to inspection, Yes full ROM and Yes capillary refill normal Psych Appearance: grossly normal Mental Status: mental status grossly normal Affect: normal affect Attitude: cooperative Thought process: Normal thought process present Thought content: Normal thought content present Insight: Good insight present (Psych) Medical Decision Making Medical Decision Making MDM Narrative: Patient is an 87 year old assigned female at with a history of chronic right hip pain presenting to the emergency department today with acute right hip pain. Patient's physical exam was unremarkable. Patient's CT head, c-spine, and pelvis showed no acute process. I explained my physical exam findings as well as all test results to the patient. I answered all questions asked by the patient. I stressed the importance of the patient taking her medication as prescribed. I stressed the importance of the patient following up with her primary care provider. I stressed the importance of the patient returning to the emergency department immediately if her symptoms were to worsen or if she were to develop any dizziness, shortness of breath, difficulty breathing, chest pain, blurry vision, loss of vision, nausea, vomiting, abdominal pain, fever, chills, back pain, or any other complaints. Patient verbalized agreement and understanding with this treatment plan and discharge. Differential Diagnosis Differential Diagnoses: The differential diagnosis associated with the presentation includes hip pain fall chronic hip pain Admission/Observation Consideration of admission/observation: Escalation of care including admission/observation considered Patient would have been admitted to the hospital had her work up had any findings where hospital admission was appropriate and her clinical presentation warranted hospital admission. Independent Interpretation I performed an independent interpretation of an: CT Scan Interpretation: My interpretation is in agreement with the radiologist's impression of these imaging studies. EXAMINATION: CT PELVIS WITHOUT CONTRAST CLINICAL INFORMATION: Fall. Pain. Rule out pelvic fracture. COMPARISON: Previous CT of the abdomen and pelvis February 2022 TECHNIQUE: Helical scanning was performed with submillimeter collimation through the pelvis. Sagittal and coronal multiplanar 2-D reconstructions were obtained. This CT examination was performed using dose optimization techniques as appropriate, variously including the following: *Automated exposure control *Adjustment of mA and/or kV according to patient size (this includes techniques or standardized protocols for targeted exams where dose is matched to indication/reason for exam; i.e. extremities or head) *Use of iterative reconstruction technique DLP: 463 mGy-cm FINDINGS: Diverticulosis of the colon. No evidence of diverticulitis. Normal appendix. Small amount of fluid in the pelvis. Normal bladder. Atherosclerotic disease. Small umbilical hernia containing fat. OSSEOUS STRUCTURES: No fracture or dislocation. Mild degenerative changes of both hip joints with small osteophytes. Scoliosis and degenerative changes of the lower lumbar spine. 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 CT/CT pelvis wo IV con IMPRESSION: No fracture or dislocation. Mild degenerative changes of both hip joints. Scoliosis and degenerative changes of the lower lumbar spine. 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 Dictated By: Susanne Brandon MD Signed By: Electronically signed by Susanne Brandon MD 09/09/23 1547 EXAMINATION: CT HEAD WITHOUT CONTRAST CLINICAL INFORMATION: Fall. Pain. COMPARISON: Previous head CT most recent January 2007 TECHNIQUE: Contiguous axial imaging was performed from the skull base to vertex without intravenous administration of contrast. This CT examination was performed using dose optimization techniques as appropriate, variously including the following: *Automated exposure control *Adjustment of mA and/or kV according to patient size (this includes techniques or standardized protocols for targeted exams where dose is matched to indication/reason for exam; i.e. extremities or head) *Use of iterative reconstruction technique DLP: 482 mGy-cm FINDINGS: There is no evidence of an extra-axial collection. There is no evidence of intra-axial or extra-axial hemorrhage. The ventricles and extra-axial CSF spaces are prominent suggestive of generalized atrophy. There is is nonspecific periventricular white matter disease. No mass, mass effect or infarct. There is sphenoid sinus disease. No skull fracture. CT/CT head/brain wo IV con IMPRESSION: No acute findings. Generalized atrophy and nonspecific periventricular white matter disease. Inflammatory changes in the sphenoid sinus Dictated By: Susanne Brandon MD Signed By: Electronically signed by Susanne Brandon MD 09/09/23 1534 EXAMINATION: CT CERVICAL SPINE WITHOUT CONTRAST CLINICAL INFORMATION: Pain. Fall. COMPARISON: Previous cervical spine x-ray September 2015 TECHNIQUE: Axial images through the cervical spine without IV contrast. Sagittal and coronal reconstructions on the technologist workstation This CT examination was performed using dose optimization techniques as appropriate, variously including the following: *Automated exposure control *Adjustment of mA and/or kV according to patient size (this includes techniques or standardized protocols for targeted exams where dose is matched to indication/reason for exam; i.e. extremities or head) *Use of iterative reconstruction technique DLP: 220 mGy-cm FINDINGS: Bone alignment is normal. No fracture or dislocation. Multilevel degenerative spondylosis and degenerative disc disease from C3-C4 to C7-T1, greatest at C5-C6 and C6-C7. Degenerative changes at the C1 dens articulation. Mild bilateral facet arthritis. Prevertebral soft tissues are normal. 1 cm right thyroid nodule. The left thyroid gland appears small. No imaging follow-up recommended. Bilateral carotid calcification. Sphenoid sinus disease. Lung apices are clear. CT/CT cervical spine wo IV con IMPRESSION: Degenerative changes. No fracture or dislocation. Fleischner guidelines were followed Dictated By: Susanne Brandon MD Signed By: Electronically signed by Susanne Brandon MD 09/09/23 5799 Radiology Impression Discussion of test interpretation with radiology: I have reviewed the radiologist's reading. Independent Historian Clinical information obtained from an independent historian. History obtained from or confirmed by: EMS (EMS provided additional history and confirmed the history provided by the patient.) Discharge Plan Discharge Clinical Impression: Fall, Acute hip pain Patient Disposition: Home, Self-Care Instructions: Fall Prevention for Older Adults (ED), Hip Pain (ED) Additional Instructions: Follow up with your primary care provider. Return to the emergency department immediately if your symptoms worsen or if you develop any dizziness, shortness of breath, difficulty breathing, chest pain, blurry vision, loss of vision, nausea, vomiting, abdominal pain, fever, chills, back pain, or any other complaints. Prescriptions: No Action (DME) miscellaneous medical supply Misc See Rx Instructions .Route Qty: 1 0RF Rx Instructions: Elevated toilet seat with handles cyanocobalamin (vitamin B-12) 1,000 mcg/mL solution 1,000 mcg IM Q4W Qty: 1 0RF celecoxib 200 mg capsule 200 mg PO DAILY PRN (Reason: pain (scale score 7-10)) Qty: 90 0RF lisinopril 2.5 mg tablet 2.5 mg PO DAILY Qty: 90 1RF buspirone 7.5 mg tablet 7.5 mg PO .qhs Qty: 90 2RF acetaminophen [Tylenol Extra Strength] 500 mg tablet 500 mg PO QPM PRN (Reason: pain) omeprazole 20 mg capsule,delayed release(DR/EC) 20 mg PO DAILY Qty: 30 0RF propranolol 60 mg capsule,extended release 24 hr 60 mg PO DAILY Prolia 60 mg/mL syringe 60 mg subcut [id number] calcium carbonate [Calcium 500] 500 mg calcium (1,250 mg) tablet 500 mg PO DAILY primidone 50 mg tablet 100 mg PO TID Referrals: [facility] [place] [facility] [place]] (Call to establish and follow up with a primary care provider. If you already have a primary care provider, please follow up with them.) [facility] [place] [facility] [Provider Group] (Call to establish and follow up with a primary care provider. If you already have a primary care provider, please follow up with them.) [facility] [place] [facility] [Provider Group] (Call to establish and follow up with a primary care provider. If you already have a primary care provider, please follow up with them.) Interventions: ED Discharge Assessment Last Done: 09/09/23 16:26 Discharge Date/Time: 09/09/23 16:27 Print Language: Czech
== END 2023-09-09 16:27 | disposition home or self-care (01) ==
PROVIDERS: Emergency Provider Emergency Medicine
DX: S79.911A Unspecified injury of right hip, initial encounter (principal); M54.2 Cervicalgia; R51.9 Headache, unspecified; R10.31 Right lower quadrant pain; W01.0XXA Fall on same level from slipping, tripping and stumbling without subsequent striking against object, initial encounter; Y93.9 Activity, unspecified; Y92.9 Unspecified place or not applicable; Y99.9 Unspecified external cause status; Z79.899 Other long term (current) drug therapy
CPT/HCPCS: 70450; 72125; 72192; 99282; 99284

== ENCOUNTER 2023-10-17 12:44 | Outpatient (AMB) | payer MEDICARE, OTHER, MEDICAID, SELFPAY ==
--- NOTE | 2023-10-21 08:48 | AM.OFFVISNUR ---
Intake Intake Visit Reasons: B12 Intake Note: Late entry from 10/17/23 at 1pm-Pt arrived for monthly B-12 injection Male Infertility Specialist Required: No Allergies No Known Allergies Allergy (Verified 09/09/23 11:07) Office Meds cyanocobalamin (vitamin B-12) 1,000 mcg/mL injection solution Performing Provider: Magy Romero MD Performing Location: [facility] Administered by: Candice Quevedo RN on 10/17/23 13:00 Dose Route Admin Location Dispensed Lot Number Expiration Date ND Card Grader 1,000 mcg IM left deltoid 1 mL [id number] 08/26/24 59994-781-71 [facility] Comments: Pt supplied Coding Assessment & Plan Assessment & Plan Orders: Orders AMB Vitamin B12 Injection Patient Supplied 10/17/23 E53.8 - Deficiency of other specified B group vitamins
== END 2023-10-17 13:04 | disposition home or self-care (01) ==
PROVIDERS: Visit Provider Internal Medicine
DX: E53.8 Deficiency of other specified B group vitamins (principal)
CPT/HCPCS: 96372; J3420

== ENCOUNTER 2023-10-30 08:32 | Outpatient (REF) | payer MEDICARE, OTHER, MEDICAID, SELFPAY ==
[2023-10-30 12:50] LABS: Folate 4.3 ng/mL (> or = 4.0); Vitamin B12 468 pg/mL (200-900)
[2023-10-30 13:37] LABS: Alanine Aminotransferase < 5 U/L (0-31); Anion Gap 8 (12-20); Aspartate Amino Transferase 11 U/L (5-31); Blood Urea Nitrogen 25 mg/dL (9-16); Carbon Dioxide 28 mmol/L (22-29); Chloride 106 mmol/L (96-108); Estimated Glomerular Filt Rate 57; Glucose Fasting 89 mg/dL (60-99); Potassium 4.2 mmol/L (3.3-5.1); Sodium 138 mmol/L (135-145)
[2023-10-30 14:01] LABS: Vitamin D 25-OH Total 61.7 ng/mL (>30)
== END 2023-10-30 08:33 | disposition home or self-care (01) ==
LOC: HO.HMGCLDS 08:32
PROVIDERS: PCP Internal Medicine; Visit Provider Internal Medicine
DX: M16.0 Bilateral primary osteoarthritis of hip (principal); F41.1 Generalized anxiety disorder; I25.10 Atherosclerotic heart disease of native coronary artery without angina pectoris; I10 Essential (primary) hypertension; M19.90 Unspecified osteoarthritis, unspecified site; M81.0 Age-related osteoporosis without current pathological fracture
CPT/HCPCS: 36415; 80048; 82306; 82607; 82746; 84450; 84460

== ENCOUNTER 2023-11-15 10:55 | Outpatient (AMB) | payer MEDICARE, OTHER, MEDICAID, SELFPAY ==
--- NOTE | 2023-11-15 11:04 | AM.OFFVISNUR ---
Intake Intake Visit Reasons: B12 shot Intake Note: Pt arrived for monthly B-12 injection Allergies No Known Allergies Allergy (Verified 09/09/23 11:07) Office Meds cyanocobalamin (vitamin B-12) 1,000 mcg/mL injection solution Performing Provider: Magy Romero MD Performing Location: [facility] [place] [facility] Administered by: Candice Quevedo RN on 11/15/23 11:04 Dose Route Admin Location Dispensed Lot Number Expiration Date ND [employer] 1,000 mcg IM Right deltoid 1 mL [id number] 08/26/24 88180-591-53 [facility] Comments: Pt supplied Coding Assessment & Plan Assessment & Plan Orders: Orders AMB Vitamin B12 Injection Patient Supplied Today E53.8 - Deficiency of other specified B group vitamins
== END 2023-11-15 11:42 | disposition home or self-care (01) ==
PROVIDERS: PCP Internal Medicine; Visit Provider Internal Medicine
DX: E53.8 Deficiency of other specified B group vitamins (principal)
CPT/HCPCS: 96372; J3420

== ENCOUNTER 2023-12-16 12:35 | Outpatient (REF) | payer MEDICARE, OTHER, MEDICAID, SELFPAY ==
--- NOTE | ~2023-12-16 | US_ITS ---
EXAMINATION: US RETROPERITONEAL LIMITED (RENAL ONLY) CLINICAL INFORMATION: Cyst of kidney, acquired. COMPARISON: Ultrasound kidneys and bladder 11/16/2022. CT abdomen without and with contrast 03/13/2022. Renal ultrasound 12/01/2020. TECHNIQUE: Real-time imaging of the kidneys. FINDINGS: RIGHT KIDNEY: 11.4 x 3.3 x 4.6 cm (SAG x AP x TRV). The kidney is normal in size, contour, and echogenicity. Renal cortical thickness is normal. No calculi or focal parenchymal lesions. No hydronephrosis. LEFT KIDNEY: 10.6 x 4.6 x 4.8 cm (SAG x AP x TRV). The kidney is normal in size and contour. There is increased renal cortical echotexture with focal upper pole cortical thinning. No renal calculi or hydronephrosis. The interpolar aspect, a 3.3 x 6.0 x 3.4 cm heterogeneously hypoechoic mass is seen, without associated color Doppler flow. Previously, this measured 5.1 x 3.6 x 3.3 cm. There are multiple benign, simple cysts, the largest at the upper pole measuring 1.7 cm. This requires no imaging follow-up. US/US renal BI IMPRESSION: 1. There is interim decrease in a previously noted left renal interpolar mass. Continued urology evaluation and management is recommended. 2. There is increased left renal cortical echotexture and renal cortical thinning, which can be associated with medical renal disease.
== END 2023-12-16 12:36 | disposition home or self-care (01) ==
LOC: HO.HMGCX 12:35
PROVIDERS: PCP Internal Medicine; Visit Provider Nurse Practitioner Family
DX: N28.1 Cyst of kidney, acquired (principal)
CPT/HCPCS: 76775

== ENCOUNTER 2023-12-23 14:12 | Outpatient (AMB) | payer MEDICARE, OTHER, MEDICAID, SELFPAY ==
--- NOTE | 2023-12-23 14:22 | AM.OFFVISNUR ---
Intake Intake Visit Reasons: B12 Allergies No Known Allergies Allergy (Verified 09/09/23 11:07) Office Meds cyanocobalamin (vitamin B-12) 1,000 mcg/mL injection solution Performing Provider: Magy Romero MD [place] [facility] [place] [facility] Administered by: Benjamin Musa RN on 12/23/23 14:20 Dose Route Admin Location Dispensed Lot Number Expiration Date NDC Beach Attendant 1,000 mcg IM left deltoid 1 mL [id number] 08/26/24 83816-541-79 [facility] Comments: patient consented for b12 injection and tolerated well. Coding Assessment & Plan Assessment & Plan Orders: Orders AMB Vitamin B12 Injection Patient Supplied Today E53.8 - Deficiency of other specified B group vitamins Medications: New cyanocobalamin (vitamin B-12) 1,000 mcg IM ONCE 1 mL 0RF E53.8 - Deficiency of other specified B group vitamins
== END 2023-12-23 14:25 | disposition home or self-care (01) ==
LOC: HO.HMGC 14:12
PROVIDERS: PCP Internal Medicine; Visit Provider Internal Medicine
DX: E53.8 Deficiency of other specified B group vitamins (principal)
CPT/HCPCS: 96372; J3420

== ENCOUNTER 2023-12-24 13:09 | Outpatient (AMB) | payer MEDICARE, OTHER, MEDICAID, SELFPAY ==
--- NOTE | 2023-12-24 13:27 | A.OFFVIS_ITS ---
Intake Visit Reasons: 1y/US(set) Intake Note: Patient is present for follow up renal cyst and ultrasound Imagin12/16/23 Urology Medications: none Antibiotic Allergy: None Blood Thinner: None Director Enterprise Systems Required: No Accompanied by: Self / Same As Patient Allergies No Known Allergies Allergy (Verified 12/24/23 22:34) Medication List - Last Reconciled 12/24/23 by WAQAS Rodney acetaminophen (Tylenol Extra Strength) 500 mg PO QPM PRN buspirone 7.5 mg PO .qhs calcium carbonate (Calcium 500) 500 mg PO DAILY celecoxib 200 mg PO DAILY PRN cyanocobalamin (vitamin B-12) 1,000 mcg IM Q4W denosumab (Prolia) 60 mg subcut [id number] lisinopril 2.5 mg PO DAILY miscellaneous medical supply Elevated toilet seat with handles omeprazole 20 mg PO DAILY primidone 100 mg PO TID HPI Comments Details: Jocelyn is a pleasant 87-year-old female patient of Dr. Romero. She presents to the office today for a follow-up of her lower urinary tract symptoms and renal mass. In discussion with the patient today she reports to be doing and feeling well. Recent renal imaging results reviewed with the patient today. Bilateral kidneys with no calculi or hydronephrosis. In the interpolar aspect of the left kidney a 3.3 x 6.0 x 3.4 cm heterogeneously hypoechoic mass is seen, without associated color Doppler flow. Previously, this measured 5.1 x 3.6 x 3.3 cm. There are multiple benign, simple cysts, the largest at the upper pole measuring 1.7 cm. This requires no imaging follow-up per radiology report. There is interim decrease in a previously noted left renal interpolar mass. Concerns She had previously trialed tolterodine for lower urinary tract symptoms however did not find this helpful in did not wish to trial other options as she does not feel lower urinary tract symptoms to be bothersome enough. She discusses at length her granddaughter who has recently started dialysis and has had a longstanding history of nephrostomy tubes. She also discusses helping her son who is disabled due to amputation of his leg and multiple other conditions. She currently denies any bothersome urinary issues or concerns. She denies nocturia, hematuria, dysuria, foul smelling urine, changes to urinary stream, flank pain, fever, and or chills. She is happy with her current voiding parameters. In office urinalysis results reviewed with the patient today. She discusses recently renewing her license on her 88th birthday. Discussed further workup of renal imaging versus surveillance monitoring. Patient reports given her age she would like to continue with surveillance monitoring at this time. 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 Mother Arthritis Son No problems noted. Daughter No problems noted. Brother No problems noted. Social History Housing: Condominium Alcohol intake: former Patient Tobacco Use Status: Never used Tobacco Tobacco use type: Cigarette e-Cigarette/Vaping Use: Never Used Second Hand Smoke Exposure: Yes Current occupational status: retired Current occupation: Retired Cognitive needs: No Hearing needs: No Vision needs: Yes Review of Systems Const Reports as per HPI Eyes Reports no additional complaints ENT Reports no additional complaints Card Reports no additional complaints Resp Reports no additional complaints GI Reports no additional complaints Reports as per HPI Musc Details: Patient ambulating independently however reports left sided hip pain. Reports as per HPI Neuro Reports no additional complaints Psych Reports as per HPI Endo Reports no additional complaints Naif/Lymph Reports no additional complaints Aller/Immun Reports no additional complaints Physical Exam Const General: cooperative, healthy appearing, comfortable, no acute distress, well developed, alert and awake Nutritional Appearance: average body habitus Orientation/consciousness: patient oriented x3 Limitations: no limitations HEENT Head: Yes normal to inspection, Yes normocephalic and Yes atraumatic Ears: hearing grossly normal bilaterally Eyes General: appearance normal, both eyes and all related structures Neck Neck: Yes normal visual inspection and Yes trachea midline Chest Chest palpation & inspection: normal inspection of the chest Resp Effort & Inspection: normal respiratory effort and able to speak in complete sentences Cardio Rate: regular rate GI Inspection: Yes normal to inspection General: Yes no CVA tenderness Back/Spine/Pelvis Back: no CVA tenderness Skin General skin exam: no rashes or lesions noted Neuro General: patient oriented x3 Extrem General: Yes normal to inspection Psych Appearance: grossly normal and well kempt Mental Status: mental status grossly normal Speech and movement: Normal speech and movement present and Clear speech present Affect: normal affect Attitude: cooperative Thought process: Normal thought process present Thought content: Normal thought content present Insight: Fair insight present (Psych) Judgement: Fair judgement present (Psych) Results AMB Urinalysis, Automated UA Leukoctes 125 Fatoumata/uL Last Edit by ExtendEvent on 12/24/23 14:30 UA Nitrite Negative Last Edit by Snapsort on 12/24/23 14:30 UA Urobilinogen 0.2 mg/dL Last Edit by ExtendEvent on 12/24/23 14:30 UA Protein 30 mg/dL Last Edit by ExtendEvent on 12/24/23 14:30 UA pH 6.0 Last Edit by ExtendEvent on 12/24/23 14:30 UA Blood 10 Chad/uL Last Edit by ExtendEvent on 12/24/23 14:30 UA Specific [place] 1.015 Last Edit by ExtendEvent on 12/24/23 14:30 UA Ketone Positive Last Edit by ExtendEvent on 12/24/23 14:30 UA Bilirubin 1 mg/dL Last Edit by ExtendEvent on 12/24/23 14:30 UA Glucose 0 mg/dL Last Edit by ExtendEvent on 12/24/23 14:30 Results Reviewed Results Reviewed: Laboratory Last Values Urine pH (Auto) 6.0 12/24/23 14:29 Specific [place] (Auto) 1.015 12/24/23 14:29 Urine Protein (Auto) 30 mg/dL 12/24/23 14:29 Glucose (UA)(Auto) 0 mg/dL 12/24/23 14:29 Urine Ketones (Auto) Positive 12/24/23 14:29 Urine Blood (Auto) 10 Chad/uL 12/24/23 14:29 Urine Nitrite (Auto) Negative 12/24/23 14:29 Urine Bilirubin (Auto) 1 mg/dL 12/24/23 14:29 Urine Urobilinogen (Auto) 0.2 mg/dL 12/24/23 14:29 Leukocyte Esterase (Auto) 125 Fatoumata/uL 12/24/23 14:29 Date of Service: 12/16/23 EXAMINATION: US RETROPERITONEAL LIMITED (RENAL ONLY) FINDINGS: RIGHT KIDNEY: 11.4 x 3.3 x 4.6 cm (SAG x AP x TRV). The kidney is normal in size, contour, and echogenicity. Renal cortical thickness is normal. No calculi or focal parenchymal lesions. No hydronephrosis. LEFT KIDNEY: 10.6 x 4.6 x 4.8 cm (SAG x AP x TRV). The kidney is normal in size and contour. There is increased renal cortical echotexture with focal upper pole cortical thinning. No renal calculi or hydronephrosis. The interpolar aspect, a 3.3 x 6.0 x 3.4 cm heterogeneously hypoechoic mass is seen, without associated color Doppler flow. Previously, this measured 5.1 x 3.6 x 3.3 cm. There are multiple benign, simple cysts, the largest at the upper pole measuring 1.7 cm. This requires no imaging follow-up. IMPRESSION: 1. There is interim decrease in a previously noted left renal interpolar mass. Continued urology evaluation and management is recommended. 2. There is increased left renal cortical echotexture and renal cortical thinning, which can be associated with medical renal disease. Assessment & Plan Assessment & Plan (1) Complex renal cyst: Code(s): N28.1 - Cyst of kidney, acquired Category: Medical (2) Urinary frequency: Code(s): R35.0 - Frequency of micturition Category: Medical Plan In office urinalysis results reviewed with the patient today; as noted above. Recent renal imaging results reviewed with the patient today; as noted above. Patient reports urinary symptoms to not be bothersome at this time and does not wish to trail other OAB and or pelvic floor therapy at this time. Discussed further treatment options for renal cyst/mass versus surveillance m onitoring; patient wishes to continue with surveillance monitoring at this time. She currently denies any bothersome urinary issues or concerns. She reports be happy with current voiding parameters. Will obtain renal ultrasound in 1 year Follow-up in 1 year with imaging to be completed prior or sooner with any questions, concerns, and or issues. Orders: Orders AMB Urinalysis Automated Today Z13.9 - Encounter for screening, unspecified US renal BI 1 Year N28.1 - Cyst of kidney, acquired Patient Instructions: The patient had an opportunity to ask questions regarding the treatment plan. All questions were answered. Physical exam, labs, and imaging were discussed and reviewed in detail. As well as risks, benefits, and discussion of treatment choices. No major barriers to understanding were identified. The patient expressed understanding and agreement with the above treatment plan. The patient was made aware they should contact our office by phone for worsening of their current condition, the appearance of new symptoms, or with any questions or concerns. Compliance is encouraged with any medications and follow up testing that is ordered. It is a privilege to be allowed the opportunity to participate in? your urological care.? Again, if you have any questions or concerns If you have any questions or concerns please do not hesitate to contact me. The office is [phone]. This note is constructed using voice recognition software. While every effort has been made to ensure accuracy traffic coordinator errors may have been included. Yours sincerely, WAQAS Rodney Coding Level of Care Code Est Pt Level 3 (46116) Diagnoses Complex renal cyst N28.1 Urinary frequency R35.0
== END 2023-12-24 14:54 | disposition home or self-care (01) ==
PROVIDERS: Visit Provider Nurse Practitioner Family
DX: N28.1 Cyst of kidney, acquired (principal); R35.0 Frequency of micturition
CPT/HCPCS: 99213

== ENCOUNTER → 2023-12-24 13:09 | Outpatient (BNVA) | payer MEDICARE, OTHER, MEDICAID, SELFPAY | PROVIDERS: Visit Provider Nurse Practitioner Family | DX: N28.1 Cyst of kidney, acquired (principal); R35.0 Frequency of micturition | CPT/HCPCS: 81003; 99212 ==

== ENCOUNTER 2024-01-14 13:54 | Outpatient (AMB) | payer MEDICARE, OTHER, MEDICAID, SELFPAY ==
--- NOTE | 2024-01-14 14:00 | AM.OFFVISNUR ---
Intake Intake Visit Reasons: B 12 Intake Note: Pt arrived for monthly B-12 injection Allergies No Known Allergies Allergy (Verified 12/24/23 22:34) Office Meds cyanocobalamin (vitamin B-12) 1,000 mcg/mL injection solution Performing Provider: Magy Romero MD Performing Location: [facility] [place] [facility] Administered by: Candice Quevedo RN on 01/14/24 14:11 Dose Route Admin Location Dispensed Lot Number Expiration Date NDC Vp Software Support 1,000 mcg IM Left deltoid 1 mL [id number] 05/26/25 86236-799-90 [facility] Comments: Pt supplied Coding Assessment & Plan Assessment & Plan Orders: Orders AMB Vitamin B12 Injection Patient Supplied Today E53.8 - Deficiency of other specified B group vitamins Medications: New cyanocobalamin (vitamin B-12) 1,000 mcg IM ONCE 1 mL 0RF E53.8 - Deficiency of other specified B group vitamins
== END 2024-01-14 14:37 | disposition home or self-care (01) ==
LOC: HO.HMGC 13:55
PROVIDERS: PCP Internal Medicine; Visit Provider Internal Medicine
DX: E53.8 Deficiency of other specified B group vitamins (principal)
CPT/HCPCS: 96372; J3420

== ENCOUNTER 2024-02-19 12:35 | Outpatient (AMB) | payer MEDICARE, OTHER, MEDICAID, SELFPAY ==
--- NOTE | 2024-02-19 12:59 | AM.OFFVISNUR ---
Intake Intake Visit Reasons: B12 Intake Note: Pt arrived for monthly B-12 injection Allergies No Known Allergies Allergy (Verified 12/24/23 22:34) Office Meds cyanocobalamin (vitamin B-12) 1,000 mcg/mL injection solution Performing Provider: Magy Romero MD [place] [facility] [place] Administered by: Candice Quevedo RN on 02/19/24 13:00 Dose Route Admin Location Dispensed Lot Number Expiration Date NDC Lens Coating Technician 1,000 mcg IM left deltoid 1 mL [id number] 05/26/25 26377-589-74 [facility] Comments: Pt supplied Coding Assessment & Plan Assessment & Plan Orders: Orders AMB Vitamin B12 Injection Patient Supplied Today E53.8 - Deficiency of other specified B group vitamins Medications: New cyanocobalamin (vitamin B-12) 1,000 mcg IM ONCE 1 mL 0RF E53.8 - Deficiency of other specified B group vitamins
== END 2024-02-19 13:23 | disposition home or self-care (01) ==
LOC: HO.HMGC 12:35
PROVIDERS: PCP Internal Medicine; Visit Provider Internal Medicine
DX: E53.8 Deficiency of other specified B group vitamins (principal)
CPT/HCPCS: 96372; J3420

== ENCOUNTER 2024-03-04 12:34 | Outpatient (AMB) | payer MEDICARE, OTHER, MEDICAID, SELFPAY ==
--- NOTE | 2024-03-04 12:35 | AM.OFFWIN_ITS ---
Intake Vital Signs 3 03/04/24 12:37 Height 5 ft 5 in Weight 131 lb BMI 21.8 BP 114/70 Blood Pressure Location Lt brachial Position Sitting Pulse 70 Pulse Source Pulse Oximeter Temp 98.9 F Temp Source Oral Pulse Oximetry (%) 96 Oxygen Delivery Method Room Air Intake Visit Reasons: Both Ft swollen/rash on lt ft Intake Note: pt is here c/o bilateral foot swelling and rash on left foot. Started 2 weeks ago Patient Tobacco Use Status: Never used Tobacco Allergies No Known Allergies Allergy (Verified 03/04/24 12:36) Do you need a note to return to daycare/school/sports/work: No HPI HPI Comments 2 History of Present Illness0 Details 88 y/o female patient who presents to [facility] clinic with c/o rash on bilateral feet x 3 days. Describes the rash as very itchy, dry and red. 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 Mother Arthritis Son No problems noted. Daughter No problems noted. Brother No problems noted. Social History Housing: Condominium Alcohol intake: former Patient Tobacco Use Status: Never used Tobacco Tobacco use type: Cigarette e-Cigarette/Vaping Use: Never Used Second Hand Smoke Exposure: Yes Current occupational status: retired Current occupation: Retired Cognitive needs: No Hearing needs: No Vision needs: Yes Review of Systems Const All systems reviewed & are unremarkable except as noted in HPI and below Physical Exam Vital Signs: Last Vital Signs Temp 98.9 F 03/04/24 12:37 Pulse 70 03/04/24 12:37 BP 114/70 03/04/24 12:37 Pulse Ox 96 03/04/24 12:37 Oxygen Delivery Method Room Air 03/04/24 12:37 BMI result Body Mass Index 21.8 Const General: comfortable and no acute distress Nutritional Appearance: thin Orientation/consciousness: patient oriented x3 Skin Other: Large red and dry scaly, flaky patches on plantar and dorsal feet. Rashes: rashes noted Nails: yellow and thickened (bilateral toes nails) Full body images: 2 1. Large red and dry scaly, flaky patches on plantar and dorsal feet. Neuro General: patient oriented x3, gait normal and moves all extremities Psych Speech and movement: Normal speech and movement present Assessment & Plan Assessment & Plan (1) Tinea pedis of both feet: Code(s): B35.3 - Tinea pedis Plan: Keep skin dry and clean Wear Open toe shoes Apply medication BID Medications: New 2 ketoconazole 2% 1 appl topical BID 14 days 30 grams 0RF B35.3 - Tinea pedis Coding Level of Care Code Est Pt Level 3 (73982) Diagnoses Tinea pedis of both feet B35.3 Time Spent (min) 15
[2024-03-04 12:37] VITALS: BP 114/70; PULSE 70; TEMP 37.2; O2SAT 96; BMI 21.8
== END 2024-03-04 13:51 | disposition home or self-care (01) ==
PROVIDERS: PCP Internal Medicine; Visit Provider Nurse Practitioner Family
DX: B35.3 Tinea pedis (principal)
CPT/HCPCS: 99213

== ENCOUNTER 2024-03-09 11:02 | Outpatient (AMB) | payer MEDICARE, OTHER, MEDICAID, SELFPAY ==
[2024-03-09 11:27] VITALS: BP 142/70; PULSE 74; O2SAT 95; BMI 21.6
--- NOTE | 2024-03-09 11:27 | A.OFFPC_ITS ---
Vital Signs 03/09/24 11:27 Height 5 ft 5 in Weight 130 lb BMI 21.6 BP 142/70 H Blood Pressure Location Rt brachial Position Sitting Pulse 74 Pulse Source Pulse Oximeter Pulse Oximetry (%) 95 Oxygen Delivery Method Room Air Intake Visit Reasons: f/u walkin swollen feet Intake Note: Pt is here today c/o bilateral feet swollen Allergies No Known Allergies Allergy (Verified 03/11/24 11:42) Tobacco use date assessed: 03/09/24 Fall risk assessment: 1 Fall in past year Last assessed Fall Risk: 03/09/24 Dental Screening Dental Screen Date: 03/09/24 Did you have a dental visit in the last 12 months?: No Did you have a dental problem in the last 6 months where you did not have access to dental care?: No Was dental information given to patient?: Patient declined HPI f/u walkin swollen feet HPI Details Patient was recently seen at the walk-in clinic complaining of a rash in both feet with some swelling. Patient was diagnosed with tinea pedis and prescribed ketoconazole cream, advised to wear open-toed shoes, and clean shoes may try applying antifungal spray which he can get [id number] to shoes, keep them clean and dry at all times patient states that rash and swelling has started to subside after application of ketoconazole cream. 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 Mother Arthritis Son No problems noted. Daughter No problems noted. Brother No problems noted. Social History Housing: Condominium Alcohol intake: former Patient Tobacco Use Status: Never used Tobacco Tobacco use type: Cigarette e-Cigarette/Vaping Use: Never Used Second Hand Smoke Exposure: Yes Current occupational status: retired Current occupation: Retired Cognitive needs: No Hearing needs: No Vision needs: Yes Questionnaire Thrive Questionnaire Date Thrive assessed: 05/08/22 MICHAEL-7 AMB Questionnaire MICHAEL-7 Date MICHAEL - 7 assessed: 05/19/23 Source: Developed by Drs. Brian Gomez, Peg Reyez, John Saucedo and colleagues, with an educational tati from [employer]. Review of Systems Const All systems reviewed & are unremarkable except as noted in HPI and below Denies chills, Denies fatigue, Denies fever(s), Denies frequent falls and Denies weakness ENT Denies dizziness Card Denies chest pain, Denies lightheadedness, Denies palpitations, Denies dyspnea and Denies orthopnea Resp Denies cough and Denies dyspnea GI Denies hematochezia and Denies change in stool character Musc Denies abnormal gait, Denies muscle weakness, Denies numbness, Denies radiating pain into limb and Denies tingling Skin/Breast Reports as per HPI Neuro Denies abnormal gait, Denies dizziness, Denies frequent falls, Denies numbness, Denies tingling and Denies weakness Endo Denies fatigue and Denies palpitations Naif/Lymph Denies easy bleeding and Denies easy bruising Physical exam (Primary Care) Vital Signs: Last Vital Signs Pulse 74 03/09/24 11:27 BP 142/70 H 03/09/24 11:27 Pulse Ox 95 03/09/24 11:27 Oxygen Delivery Method Room Air 03/09/24 11:27 BMI result Body Mass Index 21.6 Tobacco/Smoking Status: Tobacco use Status Tobacco use date assessed 03/09/24 03/09/24 11:31 Patient Tobacco Use Status Never used Tobacco 03/09/24 11:31 Tobacco use type Cigarette 03/09/24 11:31 e-Cigarette/Vaping Use Never Used 03/09/24 11:31 Thrive Assessment: Date of Thrive Assessment Date Thrive assessed 05/08/22 03/09/24 11:31 Const General: no acute distress and alert Orientation/consciousness: patient oriented x3 Limitations: ambulation with cane HENMT Head: Yes normocephalic General nose exam: Normal external nose present Mouth: Normal oral and palatal mucosa present, oropharynx normal and moist mucous membranes Eyes General: appearance normal, both eyes and all related structures Neck Neck: Yes full ROM, Yes no lymphadenopathy and Yes supple Resp Auscultation: clear to auscultation bilaterally Cardio Other: S1-S2 present regular rate and rhythm GI Palpation (GI): Soft to palpation, nontender and no guarding Back/Spine/Pelvis Other: Decreased range of motion of bilateral hip joint due to pain and stiffness, no gross bone deformity or joint swelling seen Skin General skin exam: no rashes or lesions noted Neuro General: patient oriented x3 Extrem Other: Superficial varicosities noted in both lower extremities, no pedal edema noted Assessment and Plan Assessment & Plan (1) Edema of foot: Code(s): R60.0 - Localized edema Plan: Minimal swelling noted in both feet, no new skin lesions seen. Prescription sent for furosemide 20 mg per tablet to take 1 tablet once a day in a.m. only as needed for swelling in both feet. Will check B natriuretic peptide level (2) Essential hypertension: Code(s): I10 - Essential (primary) hypertension Plan: Continue lisinopril 2.5 mg daily and propranolol ER 60 mg daily , fasting metabolic panel ordered (3) Mixed dyslipidemia: Code(s): E78.2 - Mixed hyperlipidemia Plan: Fasting lipid panel ordered Orders: Orders Basic Metabolic Panel Fasting 03/09/24 E78.2 - Mixed hyperlipidemia, I10 - Essential (primary) hypertension, I25.10 - Atherosclerotic heart disease of [place] coronary artery without angina pectoris, R60.0 - Localized edema Complete Blood Count Auto Diff 03/09/24 E78.2 - Mixed hyperlipidemia, I10 - Essential (primary) hypertension, I25.10 - Atherosclerotic heart disease of [place] coronary artery without angina pectoris, R60.0 - Localized edema Lipid Panel 03/09/24 E78.2 - Mixed hyperlipidemia, I10 - Essential (primary) hypertension, I25.10 - Atherosclerotic heart disease of [place] coronary artery without angina pectoris, R60.0 - Localized edema Magnesium 03/09/24 E78.2 - Mixed hyperlipidemia, I10 - Essential (primary) hypertension, I25.10 - Atherosclerotic heart disease of [place] coronary artery without angina pectoris, R60.0 - Localized edema IRON PROFILE 03/09/24 E78.2 - Mixed hyperlipidemia, I10 - Essential (primary) hypertension, I25.10 - Atherosclerotic heart disease of [place] coronary artery without angina pectoris, R60.0 - Localized edema B Type Natriuretic Peptide 03/09/24 E78.2 - Mixed hyperlipidemia, I10 - Essential (primary) hypertension, I25.10 - Atherosclerotic heart disease of [place] coronary artery without angina pectoris, R60.0 - Localized edema Medications: New furosemide 20 mg PO QAM PRN 5 tabs 0RF Foot swelling Coding Level of Care Code Est Pt Level 4 (21213) Diagnoses Edema of foot R60.0 Essential hypertension I10 Mixed dyslipidemia E78.2
== END 2024-03-09 13:28 | disposition home or self-care (01) ==
PROVIDERS: PCP Internal Medicine; Visit Provider Internal Medicine
DX: R60.0 Localized edema (principal); I10 Essential (primary) hypertension; E78.2 Mixed hyperlipidemia
CPT/HCPCS: 99214

== ENCOUNTER 2024-03-09 12:12 | Outpatient (REF) | payer MEDICARE, OTHER, MEDICAID, SELFPAY ==
[2024-03-09 13:11] LABS: MANUAL DIFF FLAG NO
[2024-03-09 13:28] LABS: Basophils Percent Auto 0.2 % (0-2); Eosinophils Percent Auto 0.6 % (0-4); Hematocrit 36.1 % (37.0-47.0); Hemoglobin 11.7 g/dl (12.0-16.0); Imm Gran Abs Auto 0.01 X10*3/uL (0.00-0.03); Imm Gran Pct Auto 0.2 % (0.0-0.4); Lymphocytes Absolute Auto 1.6 X10*3/uL (1.2-4.9); Lymphocytes Percent Auto 33.3 % (20-40); Mean Corpuscular HGB Conc 32.4 g/dl (31.0-35.0); Mean Corpuscular Hemoglobin 31.9 pg (27.0-33.0); Mean Corpuscular Volume 98.4 fL (80.0-98.0); Mean Platelet Volume 11.3 fL (9.4-12.3); Monocytes Absolute Auto 0.3 X10*3/uL (0.1-1.2); Monocytes Percent Auto 6.8 % (2-11); Neutrophils Absolute Auto 2.8 x10*3/uL (2.0-8.3); Neutrophils Percent Auto 58.9 % (45-73); Platelet Count 197 X10*3/uL (160-400); Red Blood Count 3.67 X10*6/uL (4.20-5.50); Red Cell Distribution Width 13.2 % (11.0-16.0); White Blood Count 4.7 X10*3/uL (4.8-10.8)
[2024-03-09 13:29] LABS: B Type Natriuretic Peptide 72 pg/mL (<100)
[2024-03-09 13:58] LABS: Anion Gap 13 (12-20); Blood Urea Nitrogen 21 mg/dL (9-16); Calcium 9.9 mg/dL (8.4-10.2); Carbon Dioxide 24 mmol/L (22-29); Chloride 102 mmol/L (96-108); Cholesterol 344 mg/dL (<200); Estimated Glomerular Filt Rate 46; Glucose Fasting 89 mg/dL (60-99); HDL Cholesterol 70 mg/dL (>40); Iron 122 mcg/dL (30-160); LDL Cholesterol Calculated 243 mg/dL (<100); Percent Iron Saturation 41 % (15-50); Potassium 4.4 mmol/L (3.3-5.1); Sodium 135 mmol/L (135-145); Total Iron Binding Capacity 298 mcg/dL (228-428); Triglycerides 155 mg/dL (<150); Unsaturated Iron Binding 176 ug/dL
== END 2024-03-09 12:13 | disposition home or self-care (01) ==
LOC: HO.HMGCLDS 12:12
PROVIDERS: PCP Internal Medicine; Visit Provider Internal Medicine
DX: R60.0 Localized edema (principal); I10 Essential (primary) hypertension; I25.10 Atherosclerotic heart disease of native coronary artery without angina pectoris; E78.2 Mixed hyperlipidemia
CPT/HCPCS: 36415; 80048; 80061; 83540; 83735; 83880; 85025

== ENCOUNTER 2024-03-11 11:07 | Outpatient (AMB) | payer MEDICARE, OTHER, MEDICAID, SELFPAY ==
--- NOTE | 2024-03-11 11:15 | A.OFFVIS_ITS ---
Intake Vital Signs 03/11/24 11:20 Height 5 ft 5 in Weight 130 lb BMI 21.6 BP 124/74 Blood Pressure Location Rt brachial Position Sitting Pulse 74 Pulse Source Pulse Oximeter Pulse Oximetry (%) 97 Oxygen Delivery Method Room Air Intake Visit Reasons: EVA G0439 Intake Note: Pt is here today for SWV Allergies No Known Allergies Allergy (Verified 03/11/24 11:42) Medication List - Last Reconciled 03/11/24 by Magy Romero MD acetaminophen (Tylenol Extra Strength) 500 mg PO QPM PRN buspirone 7.5 mg PO .qhs calcium carbonate (Calcium 500) 500 mg PO DAILY celecoxib 200 mg PO DAILY PRN cyanocobalamin (vitamin B-12) 1,000 mcg IM Q4W denosumab (Prolia) 60 mg subcut [id number] furosemide 20 mg PO QAM PRN ketoconazole 2% 1 appl topical BID 14 days lisinopril 2.5 mg PO DAILY miscellaneous medical supply Elevated toilet seat with handles omeprazole 20 mg PO DAILY primidone 100 mg PO TID propranolol ER 60 mg PO DAILY HPI SWV G0439 HPI Details SWV ? 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 Annual Wellness Visit. She is up-to-date with her bone density scan , last result on record was from March 02, 2020, currently being followed by Dr. Ortiz , on Prolia. She no longer gets mammograms and Pap smears. Her last colonoscopy done 09/26/[address] Epps was essentially unremarkable with removal of hyperplastic polyp. She had a fasting lipid panel and a fasting blood sugar level done 03/09/24 showed marked elevation in her cholesterol levels , but patient does not want to resume taking a statin due to development of severe myalgia while on it . Her fasting blood sugar was within normal limit. She is up-to-date with her pneumococcal vaccination, as well as her flu shot and COVID vaccine. Does not want to get RSV or shingles vaccine She already has a MOLST form completed in the past, healthcare proxy completed today and scanned into her medical record. She currently resides at [facility], a supportive housing complex, together with her son, has a CLEAT BLANKER that comes 3 times a week who helps her with her bathing, groceries, laundry and housecleaning. She gets at least 1 hot meal a day, and still does her own cooking at her apartment. She continues to drive, but only on local roads ? Medical / Social History Reviewed? Past Medical History ?Yes . ? [place] of Care / Care Team list updated ?Yes . ? Surgical/Hospitalization History ?Yes . ? Current Medications (including OTC and supplements) ?Yes . ? Family History ?Yes . ? Tobacco Control form ?Yes . ? AUDIT-C (Alcohol use) form ?Yes . ? Illicit drug use in Social History ?Yes . ? Current diagnosis of depression? ?No ? Appropriate PHQ2/PHQ9 completed ?Yes . ? Data entered by ?[employer] Cost Estimator and reviewed by provider ? Fall Risk ? Fall History? Have you had any falls with injury in the past year? ?No . ? Have you had two or more falls in the past year? yes . ? Fall Risk Assessment: ?yes . ? HRA filled out by the patient, reviewed by Provider and scanned. ?SWV ? Balance? Romberg ?negative. ? Tandem walk ?with difficulty . ? Walk and Turn ?Yes . ? Rise from sit to stand ?Yes . ?Vision? Corrective lens ?Yes ? Vision screen ? Up-to-date, sees Dr. Sheridan for screening and glaucoma screening ?Hearing? Whisper test ?pass . ?Written Plan?Completed. See Patient Documents.? 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 Mother Arthritis Son No problems noted. Daughter No problems noted. Brother No problems noted. Social History Housing: Condominium Alcohol intake: former Patient Tobacco Use Status: Never used Tobacco Tobacco use type: Cigarette e-Cigarette/Vaping Use: Never Used Second Hand Smoke Exposure: Yes Current occupational status: retired Current occupation: Retired Cognitive needs: No Hearing needs: No Vision needs: Yes Questionnaire Medicare Wellness Checkup What is your age?: 81 or older What gender do you identify with?: female During the past 4 weeks, how much have you been bothered by emotional problems such as feeling anxious, depressed, irritable, sad or downhearted, and blue?: slightly During the past 4 weeks, has your physical & emotional health limited your social activities with family, friends, neighbors, or groups?: not at all During the past 4 weeks, how much bodily pain have you generally had?: moderate pain During the past 4 weeks, was someone available to help you if you needed & wanted help?: yes, quite a bit During the past 4 weeks, what was the hardest physical activity you could do for at least 2 minutes?: heavy Can you get to places out of walking distance without help? (For eg., can you travel alone on buses, taxis or drive your car?): Yes Can you go shopping for groceries or clothes without someone's help?: Yes Can you prepare your own meals?: Yes Can you do your housework without help?: Yes Because of any health problems, do you need the help of another person with your personal care needs such as eating, bathing, dressing or getting around the house?: Yes Can you handle your own money without help?: Yes During the past 4 weeks, how would you rate your health in general?: good During the past 4 weeks how have things been going for you?: pretty well Are you having difficulties driving your car?: no Do you always fasten your seat belt when you are in a car?: yes, usually During past 4 weeks, have you been bothered by the following: never: Teeth or denture problems? and Problems using the telephone?, sometimes: Falling or dizzy when standing up and Sexual problems? and often: Trouble eating well? and Tiredness or fatigue? Have you fallen 2 or more times in the past year?: Yes Are you afraid of falling?: Yes Are you a smoker?: no During the past 4 weeks, how many drinks of wine, beer, or other alcoholic beverages did you have?: no alcohol at all Do you exercise for about 20 minutes 3 or more times a week?: no, I usually do not exercise this much Have you been given information to help with the following?: yes: Hazards in your house that might hurt you? and yes: Keeping track of your medications? How often do you have trouble taking medicines the way you have been told to take them?: I always take medicine as prescribed How confident are you that you can control & manage most of your health problems?: somewhat confident What is your race?: White Mini Mental State Exam (MMSE) Orientation What is the (year) (season) (date) (day) (month)?: year (2023), season (Summer), date (03/11/2024), day (Saturday) and month (February) Where are we (state) (county) (town or city) (hospital) (floor)?: state ([place]), county ([place]), town or city ([place]) and hospital/clinic ([facility]) Score Score: 9 Activity of Daily Living Bathing - sponge bath, tub bath or shower: receives help in bathing only one body part (such as back or leg) Dressing - getting clothes from closets & drawers, including inner/outer garments & fasteners.: gets clothes & gets completely dressed without help Toileting - going to the 'toilet room' for urine/bowel elimination & cleaning self/arranging clothes: goes to toilet room, cleans self, arranges clothes without help Transfer: moves in & out of bed and chair without help (may use support object) Continence: controls urination/bowel movements completely by self Feeding: feeds self without help Total Score: 0 Information obtained from: patient Using telephone: independent Traveling: independent Shopping: needs assistance Preparing meals: independent Housework: needs assistance Taking medicine: independent Managing money: needs assistance PHQ-9 Over the last 2 weeks, how often have you been bothered by any of the following problems? 1. Little interest or pleasure in doing things: not at all 2. Feeling down, depressed, or hopeless: not at all 3. Trouble falling or staying asleep, or sleeping too much: not at all 4. Feeling tired or having little energy: not at all 5. Poor appetite or overeating: not at all 6. Feeling bad about yourself - or that you are a failure or have let yourself or your family down: not at all 7. Trouble concentrating on things, such as reading the newspaper or watching television: not at all 8. Moving or speaking so slowly that other people could have noticed. Or the opposite - being so fidgety or restless that you have been moving around a lot more than usual: not at all 9. Thoughts that you would be better off or of hurting yourself in some way: not at all Total score: 0 Depression Screening Interpretation: Negative Depression Screening Done: Yes 01541 - PHQ-9 Billing: Yes Source: Developed by Drs. Brian Gomez, Peg Reyez, John Saucedo and colleagues, with an educational tati from [employer]. Physical Exam Vital Signs: Last Vital Signs Pulse 74 03/11/24 11:20 BP 124/74 03/11/24 11:20 Pulse Ox 97 03/11/24 11:20 Oxygen Delivery Method Room Air 03/11/24 11:20 BMI result Body Mass Index 21.6 Assessment & Plan Assessment & Plan (1) Encounter for subsequent annual wellness visit (AWV) in Medicare patient: Code(s): Z00.00 - Encounter for general adult medical examination without abnormal findings Plan: Medical wellness checklist reviewed with patient, discussed and updated. Copy given. Healthcare proxy completed today, MOLST form already done . (2) Osteoarthritis, hip, bilateral: Code(s): M16.0 - Bilateral primary osteoarthritis of hip Qualifiers: Osteoarthritis type: primary Qualified Code(s): M16.0 - Bilateral ayan hector osteoarthritis of hip Plan: Followed by Dr. Ortiz at rheumatology clinic, who gives her hip every 3 months as needed, also takes Tylenol arthritis 650 mg 1 tablet twice a day and an occasional celecoxib, in addition to heat application to affected joint as needed for pain control (3) Generalized anxiety disorder: Code(s): F41.1 - Generalized anxiety disorder Plan: Currently on buspirone 7.5 mg at bedtime which has been held (4) Spinal stenosis of lumbar region at multiple levels: Code(s): M48.061 - Spinal stenosis, lumbar region without neurogenic claudication Plan: Followed by Rheumatology (5) Osteoporosis: Comment: sees Dr Ortiz Code(s): M81.0 - Age-related osteoporosis without current pathological fracture Plan: On Prolia, followed by Rheumatology currently taking lisinopril 2.5 mg daily (6) Essential hypertension: Code(s): I10 - Essential (primary) hypertension Plan: currently taking lisinopril 2.5 mg daily and propranolol ER 60 mg once daily, followed by cardiology (7) Mixed dyslipidemia: Code(s): E78.2 - Mixed hyperlipidemia Plan: Lipid levels are markedly elevated but patient does not want to start taking statin again, due to development of severe muscle pain and weakness while on it (8) GERD with esophagitis: Code(s): K21.00 - Gastro-esophageal reflux disease with esophagitis, without bleeding Plan: On omeprazole 20 mg daily (9) CAD (coronary artery disease): Code(s): I25.10 - Atherosclerotic heart disease of [place] coronary artery without angina pectoris Plan: Followed by cardiology Quality Reporting (2019) Depression/Bipolar (159/160/161/177) PHQ-9: Total score: 0 Coding Level of Care Code Medicare Subsequent (G0439) Diagnoses Encounter for subsequent annual wellness visit (AWV) in Medicare patient Z00.00 Primary osteoarthritis of both hips M16.0 Osteoarthritis type: primary Generalized anxiety disorder F41.1 Spinal stenosis of lumbar region at multiple levels M48.061 Osteoporosis M81.0 Essential hypertension I10 Mixed dyslipidemia E78.2 GERD with esophagitis K21.00 CAD (coronary artery disease) I25.10 CPT Codes Advance Care Planning - Time spent: 16-45 minutes ([id number]) Advance Care Planning Advance Care Planning discussion: Completed/Scanned Date of discussion: 03/11/24 Who was present: Patient Forms completed: Health Care Proxy Time spent: 16-45 minutes Actual minutes spent: 16
[2024-03-11 11:20] VITALS: BP 124/74; PULSE 74; O2SAT 97; BMI 21.6
== END 2024-03-11 12:19 | disposition home or self-care (01) ==
PROVIDERS: PCP Internal Medicine; Visit Provider Internal Medicine
DX: Z00.00 Encounter for general adult medical examination without abnormal findings (principal); M16.0 Bilateral primary osteoarthritis of hip; F41.1 Generalized anxiety disorder; M48.061 Spinal stenosis, lumbar region without neurogenic claudication; M81.0 Age-related osteoporosis without current pathological fracture; I10 Essential (primary) hypertension; E78.2 Mixed hyperlipidemia; K21.00 Gastro-esophageal reflux disease with esophagitis, without bleeding; I25.10 Atherosclerotic heart disease of native coronary artery without angina pectoris
CPT/HCPCS: 99497; G0439

== ENCOUNTER 2024-03-17 10:37 | Outpatient (AMB) | payer MEDICARE, OTHER, MEDICAID, SELFPAY ==
--- NOTE | 2024-03-17 10:47 | AM.OFFVISNUR ---
Intake Visit Reasons: B12 Allergies No Known Allergies Allergy (Verified 03/11/24 11:42) Office Meds cyanocobalamin (vitamin B-12) 1,000 mcg/mL injection solution Performing Provider: Magy Romero MD [place] [facility] [place] Administered by: Alva Wang on 03/17/24 10:47 Dose Route Admin Location Dispensed Lot Number Expiration Date NDC Workforce Management Coordinator 1,000 mcg IM left deltoid 1 mL [id number] 06/14/25 24256-526-92 FRESENIUS KABI 1,000 mcg IM lefet deltoid 1 mL [id number] 06/14/25 61701-644-96 FRESENIUS KABI Assessment & Plan Assessment & Plan Orders: Orders AMB Vitamin B12 Injection Patient Supplied Today E53.8 - Deficiency of other specified B group vitamins Medications: New cyanocobalamin (vitamin B-12) 1,000 mcg IM ONCE 1 mL 0RF E53.8 - Deficiency of other specified B group vitamins
== END 2024-03-17 12:09 | disposition home or self-care (01) ==
PROVIDERS: PCP Internal Medicine; Visit Provider Internal Medicine
DX: E53.8 Deficiency of other specified B group vitamins (principal)
CPT/HCPCS: 96372; J3420

== ENCOUNTER 2024-04-16 09:08 | Outpatient (AMB) | payer MEDICARE, OTHER, MEDICAID, SELFPAY ==
--- NOTE | 2024-04-16 12:10 | AM.OFFVISNUR ---
Intake Visit Reasons: B-12 Intake Note: Pt arrived for monthly B-12 injection Allergies No Known Allergies Allergy (Verified 03/11/24 11:42) Office Meds cyanocobalamin (vitamin B-12) 1,000 mcg/mL injection solution Performing Provider: Daksha Arnold MD Performing Location: [facility] [place] Primary Care-[facility] Administered by: Candice Quevedo RN on 04/16/24 09:30 Dose Route Admin Location Dispensed Lot Number Expiration Date NDC Sound Cutter 1,000 mcg IM right deltoid 1 mL [id number] 04/26/26 14627-876-30 SIMA STARKS Comments: Pt supplied Assessment & Plan Assessment & Plan Orders: Orders AMB Vitamin B12 Injection Patient Supplied Today E53.8 - Deficiency of other specified B group vitamins Medications: New cyanocobalamin (vitamin B-12) 1,000 mcg IM ONCE 1 mL 0RF E53.8 - Deficiency of other specified B group vitamins
== END 2024-04-16 12:36 | disposition home or self-care (01) ==
PROVIDERS: PCP Internal Medicine
DX: E53.8 Deficiency of other specified B group vitamins (principal)
CPT/HCPCS: 96372; J3420

== ENCOUNTER 2024-04-28 13:08 | Outpatient (REF) | payer MEDICARE, OTHER, MEDICAID, SELFPAY ==
--- NOTE | ~2024-04-28 | XR_ITS ---
EXAMINATION: XR FOOT, RIGHT CLINICAL INFORMATION: Right foot pain. COMPARISON: None available. TECHNIQUE: AP, lateral, and oblique views of the right foot. FINDINGS: No acute fracture or dislocation. Mild joint space narrowing with small marginal osteophytes throughout the tarsometatarsal joints. No osseous erosion. Plantar and dorsal calcaneal spurs. XR/XR foot RT min 3V IMPRESSION: 1. Mild degenerative arthritis throughout the tarsometatarsal joints. 2. Plantar and dorsal calcaneal spurs. Electronically signed by: Carlos Yeh MD 05/04/2024 01:26 PM EDT
== END 2024-04-28 13:09 | disposition home or self-care (01) ==
LOC: HO.HMGCX 13:08
PROVIDERS: PCP Internal Medicine; Visit Provider Internal Medicine
DX: M79.671 Pain in right foot (principal)
CPT/HCPCS: 73630

== ENCOUNTER 2024-05-07 12:25 | Outpatient (AMB) | payer MEDICARE, OTHER, MEDICAID, SELFPAY ==
[2024-05-07 12:30] VITALS: BP 120/70; BMI 21.6
--- NOTE | 2024-05-07 12:30 | A.OFFPC_ITS ---
Vital Signs 05/07/24 12:30 Height 5 ft 5 in Weight 130 lb BMI 21.6 BP 120/70 Blood Pressure Location Lt brachial Position Sitting Intake Visit Reasons: 1 week follow up Per Dr. Franz Intake Note: Pt is here today for her 1 week f/u Allergies No Known Allergies Allergy (Verified 05/10/24 14:29) Medication List - Last Reconciled 05/10/24 by Magy Romero MD acetaminophen (Tylenol Extra Strength) 500 mg PO QPM PRN buspirone 7.5 mg PO .qhs calcium carbonate (Calcium 500) 500 mg PO DAILY celecoxib 200 mg PO DAILY PRN cephalexin 500 mg PO Q12H 7 days cyanocobalamin (vitamin B-12) 1,000 mcg IM Q4W denosumab (Prolia) 60 mg subcut [id number] furosemide 20 mg PO QAM PRN ketoconazole 2% 1 appl topical BID 14 days lisinopril 2.5 mg PO DAILY miscellaneous medical supply Elevated toilet seat with handles omeprazole 20 mg PO DAILY primidone 100 mg PO BID propranolol ER 60 mg PO DAILY Tobacco use date assessed: 05/07/24 Fall risk assessment: No Falls in past year Last assessed Fall Risk: 05/07/24 Dental Screening Dental Screen Date: 05/07/24 Did you have a dental visit in the last 12 months?: Yes Did you have a dental problem in the last 6 months where you did not have access to dental care?: No Was dental information given to patient?: Patient has dentist HPI 1 week follow up Per Dr. Franz HPI Details 88-year-old lady here today for follow-u p regarding right foot pain. Patient states that pain is better and has resolved after finishing prednisone 20 mg daily for 5 days. She denies any further pain, no swelling in affected area. She was noted to have fresh abrasion on anterior aspect of her left lower leg. Patient states at her neighbor's dog accidentally scratched her when he jumped on her to greet her. She has been cleaning it with peroxide, but wound is still not healing. This happened approximately a week ago. 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 Mother Arthritis Son No problems noted. Daughter No problems noted. Brother No problems noted. Social History Housing: Condominium Alcohol intake: former Patient Tobacco Use Status: Never used Tobacco Tobacco use type: Cigarette e-Cigarette/Vaping Use: Never Used Second Hand Smoke Exposure: Yes Current occupational status: retired Current occupation: Retired Cognitive needs: No Hearing needs: No Vision needs: Yes Questionnaire Thrive Questionnaire Date Thrive assessed: 05/07/24 I am a: Patient What is your living situation today?: I have a steady place to live Within the past 12 months, did the food you bought not last and you didn't have the money to get more?: I choose not to answer this question Within the past 12 months, did you worry whether your food would run out before you got money to buy more?: I choose not to answer this question Do you have trouble paying for medicines?: I choose not to answer this question Do you have trouble getting transportation to medical appointments?: I choose not to answer this question Do you have trouble paying your heating and electricity bill?: I choose not to answer this question Do you have trouble taking care of your child, family member or friend?: I choose not to answer this question Do you have trouble with day-to-day activities such as bathing, preparing meals, shopping, managing finances, etc.?: I choose not to answer this question THRIVE Score: 0 MICHAEL-7 AMB Questionnaire MICHAEL-7 Date MICHAEL - 7 assessed: 05/19/23 Source: Developed by Drs. Brian Gomez, Peg Reyez, John Saucedo and colleagues, with an educational tati from [employer]. Review of Systems Const All systems reviewed & are unremarkable except as noted in HPI and below Physical exam (Primary Care) Vital Signs: Last Vital Signs BP 120/70 05/07/24 12:30 BMI result Body Mass Index 21.6 Tobacco/Smoking Status: Tobacco use Status Tobacco use date assessed 05/07/24 05/07/24 12:34 Patient Tobacco Use Status Never used Tobacco 05/07/24 12:34 Tobacco use type Cigarette 05/07/24 12:34 e-Cigarette/Vaping Use Never Used 05/07/24 12:34 Thrive Assessment: Date of Thrive Assessment Date Thrive assessed 05/07/24 05/07/24 12:34 Const General: no acute distress and alert Orientation/consciousness: patient oriented x3 Limitations: ambulation with cane HENMT Mouth: moist mucous membranes Neck Neck: Yes full ROM, Yes no lymphadenopathy and Yes supple Resp Auscultation: clear to auscultation bilaterally Cardio Other: S1-S2 present regular rate and rhythm GI Palpation (GI): Soft to palpation, nontender and no guarding Skin Other: Linear shallow abrasion noted on anterior aspect of left lower extremity, with no active drainage, no surrounding erythema Neuro General: patient oriented x3 Extrem General: Yes full ROM, Yes no joint enlargement, Yes no clubbing, cyanosis or edema and Yes no calf tenderness Assessment and Plan Assessment & Plan (1) Abrasion of left lower extremity: Comment: From dog scratch Code(s): S80.812A - Abrasion, left lower leg, initial encounter Qualifiers: Encounter type: initial encounter Qualified Code(s): S80.812A - Abrasion, left lower leg, initial encounter Plan: Area cleaned with alcohol swab, and bacitracin ointment applied, prescription sent also for cephalexin 500 mg to take 1 every 12 hours for 7 days. Keep area clean and dry at all times, will see her back for follow-up in a week Medications: New cephalexin 500 mg PO Q12H 14 caps 0RF 7 days S80.812A - Abrasion, left lower leg, initial encounter Coding Level of Care Code Est Pt Level 3 (53790) Diagnoses Abrasion of left lower extremity, initial encounter S80.364L Encounter type: initial encounter
== END 2024-05-07 14:03 | disposition home or self-care (01) ==
PROVIDERS: PCP Internal Medicine; Visit Provider Internal Medicine
DX: S80.812A Abrasion, left lower leg, initial encounter (principal); W55.03XA Scratched by cat, initial encounter
CPT/HCPCS: 99213

== ENCOUNTER 2024-05-14 13:08 | Outpatient (AMB) | payer MEDICARE, OTHER, MEDICAID, SELFPAY ==
--- NOTE | 2024-05-14 13:39 | AM.OFFVISNUR ---
Intake Visit Reasons: B-12/wound check per Dr. Romero Allergies No Known Allergies Allergy (Verified 05/10/24 14:29) Nursing Note Pt am (I) gait steady with cane, medication Vitamin B12 given to left deltoid. Office Meds cyanocobalamin (vitamin B-12) 1,000 mcg/mL injection solution Performing Provider: Magy Romero MD Performing Location: [facility] [place] [facility] Administered by: Alva Wang on 05/14/24 13:40 Dose Route Admin Location Dispensed Lot Number Expiration Date [facility] [place] Program Facilitator 1,000 mcg IM 1 mL [id number] 05/15/26 [id number] SIMA STARKS Assessment & Plan Assessment & Plan Orders: Orders AMB Vitamin B12 Injection Patient Supplied Today E53.8 - Deficiency of other specified B group vitamins Medications: New cyanocobalamin (vitamin B-12) 1,000 mcg IM ONCE 1 mL 0RF E53.8 - Deficiency of other specified B group vitamins
== END 2024-05-14 16:44 | disposition home or self-care (01) ==
PROVIDERS: PCP Internal Medicine; Visit Provider Internal Medicine
DX: E53.8 Deficiency of other specified B group vitamins (principal)
CPT/HCPCS: J3420

== ENCOUNTER → 2024-05-14 13:08 | Outpatient (BNVA) | payer MEDICARE, OTHER, MEDICAID, SELFPAY | PROVIDERS: PCP Internal Medicine; Visit Provider Internal Medicine | DX: E53.8 Deficiency of other specified B group vitamins (principal) | CPT/HCPCS: 96372; J3420 ==

== ENCOUNTER 2024-06-12 13:00 | Outpatient (AMB) | payer MEDICARE, OTHER, MEDICAID, SELFPAY ==
--- NOTE | 2024-06-12 13:22 | AM.OFFVISNUR ---
Intake Visit Reasons: b12 Intake Note: Pt arrived for monthly B12 injection Allergies No Known Allergies Allergy (Verified 05/10/24 14:29) Office Meds cyanocobalamin (vitamin B-12) 1,000 mcg/mL injection solution Performing Provider: Magy Romero MD Performing Location: [facility] [place] [facility] Administered by: Candice Quevedo RN on 06/12/24 13:22 Dose Route Admin Location Dispensed Lot Number Expiration Date [facility] Juice Scaleman 1,000 mcg IM right deltoid 1 mL [id number] 04/26/26 70056-195-38 SIMA STARKS Comments: Pt supplied Assessment & Plan Assessment & Plan Orders: Orders AMB Vitamin B12 Injection Patient Supplied Today E53.8 - Deficiency of other specified B group vitamins Medications: New cyanocobalamin (vitamin B-12) 1,000 mcg IM ONCE 1 mL 0RF E53.8 - Deficiency of other specified B group vitamins
== END 2024-06-12 13:56 | disposition home or self-care (01) ==
PROVIDERS: PCP Internal Medicine; Visit Provider Internal Medicine
DX: E53.8 Deficiency of other specified B group vitamins (principal)
CPT/HCPCS: J3420

== ENCOUNTER → 2024-06-12 13:00 | Outpatient (BNVA) | payer MEDICARE, OTHER, MEDICAID, SELFPAY | PROVIDERS: PCP Internal Medicine; Visit Provider Internal Medicine | DX: E53.8 Deficiency of other specified B group vitamins (principal) | CPT/HCPCS: 96372 ==

== ENCOUNTER 2024-07-01 14:04 | Outpatient (AMB) | payer MEDICARE, OTHER, SELFPAY ==
[2024-07-01 14:05] VITALS: BP 110/70; PULSE 76; BMI 20.9
--- NOTE | 2024-07-01 14:05 | A.OFFVIS_ITS ---
Vital Signs 07/01/24 14:05 Height 5 ft 5 in Weight 125 lb 10.616 oz BMI 20.9 BP 110/70 Blood Pressure Location Lt brachial Position Sitting Pulse 76 Intake Visit Reasons: 1Y with EKG r/s Intake Note: 1 year follow-up with ekg c/o sob and leg swelling during the day [place] Auditor Required: No Allergies No Known Allergies Allergy (Verified 05/10/24 14:29) Medication List - Last Reconciled 07/01/24 by Sina Tillman MD acetaminophen (Tylenol Extra Strength) 500 mg PO QPM PRN buspirone 7.5 mg PO .qhs calcium carbonate (Calcium 500) 500 mg PO DAILY celecoxib 200 mg PO DAILY PRN cyanocobalamin (vitamin B-12) 1,000 mcg IM Q4W denosumab (Prolia) 60 mg subcut [id number] furosemide 20 mg PO QAM PRN ketoconazole 2% 1 appl topical BID 14 days lisinopril 2.5 mg PO DAILY miscellaneous medical supply Elevated toilet seat with handles omeprazole 20 mg PO DAILY primidone 100 mg PO BID propranolol ER 60 mg PO DAILY HPI Comments Details: Jocelyn comes for follow-up. He has no significant new cardiac complaints. Continues to have general fatigue and tiredness related to aging. He was also has diffuse muscle in bone aches. Denies any fall issues. Denies any orthopnea, PND, leg edema. No prolonged palpitation irregular heartbeat. No lightheadedness, syncope. 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 Mother Arthritis Son No problems noted. Daughter No problems noted. Brother No problems noted. Social History Housing: Condominium Alcohol intake: former Patient Tobacco Use Status: Never used Tobacco Tobacco use type: Cigarette e-Cigarette/Vaping Use: Never Used Second Hand Smoke Exposure: Yes Current occupational status: retired Current occupation: Retired Cognitive needs: No Hearing needs: No Vision needs: Yes Review of Systems Const Denies chills, Denies fatigue, Denies fever(s), Denies frequent falls, Denies weakness, Denies weight gain and Denies weight loss ENT Denies dizziness Card Denies chest pain, Denies leg edema, Denies lightheadedness, Denies palpitations, Denies dyspnea, Denies dyspnea on exertion, Denies orthopnea and Denies other (loss of consciousness) Resp Denies cough, Denies dyspnea and Denies dyspnea on exertion GI Denies hematochezia and Denies change in stool character Musc Denies abnormal gait, Denies muscle weakness, Denies numbness, Denies radiating pain into limb and Denies tingling Neuro Denies abnormal gait, Denies dizziness, Denies frequent falls, Denies numbness, Denies tingling and Denies weakness Endo Denies fatigue and Denies palpitations Physical Exam Vital Signs: Last Vital Signs Pulse 76 07/01/24 14:05 BP 110/70 07/01/24 14:05 BMI result Body Mass Index 20.9 Const General: cooperative, comfortable, no acute distress, alert and awake Nutritional Appearance: average body habitus and other (Frail elderly woman) Orientation/consciousness: patient oriented x3 Limitations: no limitations Neck Neck: Yes trachea midline, Yes supple and Yes no JVD Chest Chest palpation & inspection: abnormal inspection of the chest kyphotic and scoliotic Resp Effort & Inspection: normal respiratory effort Auscultation: clear to auscultation bilaterally, no rales, no wheezes and diminished lung sounds Cardio Jugular venous distension: no JVD Palpation: normal PMI Rate: regular rate Rhythm: regular rhythm Heart sounds: S1 normal heart sound present, S2 normal heart sound present, no click, no gallops, no murmurs and no rubs GI Auscultation: normal bowel sounds Skin General skin exam: no rashes or lesions noted and ecchymosis Neuro General: patient oriented x3 and no focal motor deficits Extrem General: Yes no clubbing, cyanosis or edema Office Procedures EKG Details: EKG shows normal sinus rhythm with left bundle-branch block 30219-Wuliwhuoclaiedzhl, Complete Assessment & Plan Assessment & Plan (1) Left bundle branch block: Code(s): I44.7 - Left bundle-branch block, unspecified Category: Medical Plan: Left bundle-branch block chronic without any symptoms, no interventions required. 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 No signs or symptoms of congestive heart failure. Continue medical therapy with lisinopril and propranolol therapy. No other interventions required. Continue maintain activity level as tolerated. Will follow up in the clinic in 1 year's time, sooner p.r.n.. Thank you for allowing me to partake in his care Coding Level of Care Code Est Pt Level 3 (20749) Diagnoses Left bundle branch block I44.7 CPT Codes EKG - CPT: 85760-Hvymialqxizewiegv, Complete ([id number])
== END 2024-07-01 14:30 | disposition home or self-care (01) ==
LOC: HO.HCS 14:04
PROVIDERS: PCP Internal Medicine; Visit Provider Internal Medicine Cardiovascular Disease
DX: I44.7 Left bundle-branch block, unspecified (principal)
CPT/HCPCS: 93010; 99213

== ENCOUNTER → 2024-07-01 14:04 | Outpatient (BNVA) | payer MEDICARE, OTHER, SELFPAY | PROVIDERS: PCP Internal Medicine; Visit Provider Internal Medicine Cardiovascular Disease | DX: I44.7 Left bundle-branch block, unspecified (principal) | CPT/HCPCS: 93005; 99212 ==

== ENCOUNTER 2024-07-10 10:41 | Outpatient (AMB) | payer MEDICARE, OTHER, MEDICAID, SELFPAY ==
--- NOTE | 2024-07-10 11:08 | AM.OFFVISNUR ---
Intake Visit Reasons: B-12 Intake Note: Pt arrived for monthly B-12 injection Allergies No Known Allergies Allergy (Verified 05/10/24 14:29) Office Meds cyanocobalamin (vitamin B-12) 1,000 mcg/mL injection solution Performing Provider: Magy Romero MD Performing Location: [facility] Administered by: Candice Quevedo RN on 07/10/24 11:09 Dose Route Admin Location Dispensed Lot Number Expiration Date [facility] Blackener 1,000 mcg IM left deltoid 1 mL [id number] 05/26/26 66879-039-13 SIMA STARKS Comments: Pt supplied Assessment & Plan Assessment & Plan Orders: Orders AMB Vitamin B12 Injection Patient Supplied Today E53.8 - Deficiency of other specified B group vitamins Medications: New cyanocobalamin (vitamin B-12) 1,000 mcg IM ONCE 1 mL 0RF E53.8 - Deficiency of other specified B group vitamins
== END 2024-07-10 12:06 | disposition home or self-care (01) ==
PROVIDERS: PCP Internal Medicine; Visit Provider Internal Medicine
DX: E53.8 Deficiency of other specified B group vitamins (principal)
CPT/HCPCS: J3420

== ENCOUNTER → 2024-07-10 10:41 | Outpatient (BNVA) | payer MEDICARE, OTHER, MEDICAID, SELFPAY | PROVIDERS: PCP Internal Medicine; Visit Provider Internal Medicine | DX: E53.8 Deficiency of other specified B group vitamins (principal) | CPT/HCPCS: 96372 ==

== ENCOUNTER 2024-07-13 11:34 | Outpatient (AMB) | payer MEDICARE, OTHER, SELFPAY ==
[2024-07-13 12:37] VITALS: BP 112/70; PULSE 74; O2SAT 97; BMI 21.1
--- NOTE | 2024-07-13 12:37 | MHC.PC.OV ---
Vital Signs 07/13/24 12:37 Height 5 ft 5 in Weight 127 lb BMI 21.1 BP 112/70 Blood Pressure Location Rt brachial Position Sitting Pulse 74 Pulse Source Pulse Oximeter Pulse Oximetry (%) 97 Oxygen Delivery Method Room Air Intake Visit Reasons: Rt sciatica pain Intake Note: Pt is here today c/o Rt leg sciatica pain Allergies No Known Allergies Allergy (Verified 07/13/24 12:47) Medication List - Last Reconciled 07/13/24 by Magy Romero MD acetaminophen (Tylenol Extra Strength) 500 mg PO QPM PRN buspirone 7.5 mg PO .qhs calcium carbonate (Calcium 500) 500 mg PO DAILY celecoxib 200 mg PO DAILY PRN cyanocobalamin (vitamin B-12) 1,000 mcg IM Q4W denosumab (Prolia) 60 mg subcut [id number] furosemide 20 mg PO QAM PRN lisinopril 2.5 mg PO DAILY miscellaneous medical supply Elevated toilet seat with handles omeprazole 20 mg PO DAILY primidone 100 mg PO BID propranolol ER 60 mg PO DAILY Tobacco use date assessed: 07/13/24 Fall risk assessment: No Falls in past year Last assessed Fall Risk: 07/13/24 Dental Screening Dental Screen Date: 05/07/24 HPI Rt sciatica pain HPI Details 88-year-old lady here today complaining of pain described this is sharp stabbing pain on right lower back, currently radiating down buttock. She states that the only way she gets relief not apply pressure on her right side when sleeping or sitting. Going up stairs also is difficult for her to do . She has tried weau-ezb-blgepyk NSAIDs, Tylenol, which has not helped, patient states that she has tried Tylenol No. 3 in the past which does give her some pain relief. 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 Mother Arthritis Son No problems noted. Daughter No problems noted. Brother No problems noted. Social History Housing: Condominium Alcohol intake: former Patient Tobacco Use Status: Never used Tobacco Tobacco use type: Cigarette e-Cigarette/Vaping Use: Never Used Second Hand Smoke Exposure: Yes Current occupational status: retired Current occupation: Retired Cognitive needs: No Hearing needs: No Vision needs: Yes Questionnaire Thrive Questionnaire Date Thrive assessed: 05/07/24 I am a: Patient What is your living situation today?: I have a steady place to live Within the past 12 months, did the food you bought not last and you didn't have the money to get more?: I choose not to answer this question Within the past 12 months, did you worry whether your food would run out before you got money to buy more?: I choose not to answer this question Do you have trouble paying for medicines?: I choose not to answer this question Do you have trouble getting transportation to medical appointments?: I choose not to answer this question Do you have trouble paying your heating and electricity bill?: I choose not to answer this question Do you have trouble taking care of your child, family member or friend?: I choose not to answer this question Do you have trouble with day-to-day activities such as bathing, preparing meals, shopping, managing finances, etc.?: I choose not to answer this question Are you currently unemployed and looking for a job?: No Are you interested in more education?: I choose not to answer this question THRIVE Score: 0 MICHAEL-7 AMB Questionnaire MICHAEL-7 Date MICHAEL - 7 assessed: 05/19/23 Source: Developed by Drs. Brian Gomze, Peg Reyez, John Saucedo and colleagues, with an educational tati from [employer]. Review of Systems Const Reports as per HPI and Denies frequent falls ENT Reports no additional complaints Card Denies chest pain, Denies lightheadedness and Denies dyspnea Resp Denies chest congestion, Denies cough and Denies dyspnea GI Reports no additional complaints Denies nocturia, Denies urinary incontinence, Denies urinary hesitancy and Denies urinary urgency Musc Reports as per HPI Skin/Breast Denies new lesions and Denies rash Neuro Denies frequent falls Psych Reports no additional complaints Endo Reports no additional complaints Naif/Lymph Reports no additional complaints Physical exam (Primary Care) Vital Signs: Last Vital Signs Pulse 74 07/13/24 12:37 BP 112/70 07/13/24 12:37 Pulse Ox 97 07/13/24 12:37 Oxygen Delivery Method Room Air 07/13/24 12:37 BMI result Body Mass Index 21.1 Tobacco/Smoking Status: Tobacco use Status Tobacco use date assessed 07/13/24 07/13/24 12:42 Patient Tobacco Use Status Never used Tobacco 07/13/24 12:42 Tobacco use type Cigarette 07/13/24 12:42 e-Cigarette/Vaping Use Never Used 07/13/24 12:42 Thrive Assessment: Date of Thrive Assessment Date Thrive assessed 05/07/24 07/13/24 12:42 Const Orientation/consciousness: patient oriented x3 GI Palpation (GI): Soft to palpation, nontender and no guarding Back/Spine/Pelvis Other: Tenderness on palpation over the sacroiliac area Thoracic/Lumbar Spine: thoracic and lumbar spine normal to inspection and straight leg raise negative bilaterally Skin General skin exam: no rashes or lesions noted Neuro General: patient oriented x3, gait normal and Normal light touch and pain sensation Coding Level of Care Code Est Pt Level 3 (41791) Diagnoses Strain of right piriformis muscle S76.311A Assessment & Plan Assessment & Plan (1) Strain of right piriformis muscle: Code(s): S76.311A - Strain of muscle, fascia and tendon of the posterior muscle group at thigh level, right thigh, initial encounter Plan: Patient given a temporary supply of Tylenol No. 3, to take only once a day as needed for severe pain. Advised rest, no heavy lifting, no strenuous exertion, may apply ice alternating with heat to affected area as needed for pain control. Return to clinic if no improvement of symptoms Orders: Orders Basic Metabolic Panel Fasting 11/24/24 E78.2 - Mixed hyperlipidemia, I10 - Essential (primary) hypertension, I25.10 - Atherosclerotic heart disease of [place] coronary artery without angina pectoris, M81.0 - Age-related osteoporosis without current pathological fracture Aspartate Amino Transferase 11/24/24 E78.2 - Mixed hyperlipidemia, I10 - Essential (primary) hypertension, I25.10 - Atherosclerotic heart disease of [place] coronary artery without angina pectoris, M81.0 - Age-related osteoporosis without current pathological fracture Alanine Aminotransferase 11/24/24 E78.2 - Mixed hyperlipidemia, I10 - Essential (primary) hypertension, I25.10 - Atherosclerotic heart disease of [place] coronary artery without angina pectoris, M81.0 - Age-related osteoporosis without current pathological fracture Vitamin D 25-OH Total 11/24/24 E78.2 - Mixed hyperlipidemia, I10 - Essential (primary) hypertension, I25.10 - Atherosclerotic heart disease of [place] coronary artery without angina pectoris, M81.0 - Age-related osteoporosis without current pathological fracture Lipid Panel 11/24/24 E78.2 - Mixed hyperlipidemia, I10 - Essential (primary) hypertension, I25.10 - Atherosclerotic heart disease of [place] coronary artery without angina pectoris, M81.0 - Age-related osteoporosis without current pathological fracture Medications: New acetaminophen-codeine 300-15 mg 1 tab PO DAILY PRN 10 tabs 0RF pain (scale score 7-10)
== END 2024-07-13 13:04 | disposition home or self-care (01) ==
PROVIDERS: PCP Internal Medicine; Visit Provider Internal Medicine
DX: S76.311A Strain of muscle, fascia and tendon of the posterior muscle group at thigh level, right thigh, initial encounter (principal)

== ENCOUNTER → 2024-07-13 11:34 | Outpatient (BNVA) | payer MEDICARE, OTHER, SELFPAY | PROVIDERS: PCP Internal Medicine; Visit Provider Internal Medicine | DX: S76.311A Strain of muscle, fascia and tendon of the posterior muscle group at thigh level, right thigh, initial encounter (principal) | CPT/HCPCS: 99212 ==

== ENCOUNTER 2024-08-07 09:46 | Outpatient (AMB) | payer MEDICARE, OTHER, SELFPAY ==
--- NOTE | 2024-08-07 09:58 | AM.OFFVISNUR ---
Intake Visit Reasons: B-12 Allergies No Known Allergies Allergy (Verified 07/13/24 12:47) Nursing Note Pt came in, ambulated (I) gait steady to the room. B12 injection given to right deltoid. Office Meds cyanocobalamin (vitamin B-12) 1,000 mcg/mL injection solution Performing Provider: Magy Romero MD Performing Location: [facility] [place] Primary [facility] Administered by: Alva Wang on 08/07/24 10:00 Dose Route Admin Location Dispensed Lot Number Expiration Date [facility] Chain Sales Representative 1,000 mcg IM 1 mL [id number] 06/14/26 35663-539-25 VITRUVIAS THERA 1,000 mcg IM 1 mL Assessment & Plan Assessment & Plan Orders: Orders AMB Vitamin B12 Injection Patient Supplied Today E53.8 - Deficiency of other specified B group vitamins Medications: New cyanocobalamin (vitamin B-12) 1,000 mcg IM ONCE 1 mL 0RF E53.8 - Deficiency of other specified B group vitamins
== END 2024-08-07 10:14 | disposition home or self-care (01) ==
PROVIDERS: PCP Internal Medicine; Visit Provider Internal Medicine
DX: E53.8 Deficiency of other specified B group vitamins (principal)

== ENCOUNTER → 2024-08-07 09:46 | Outpatient (BNVA) | payer MEDICARE, OTHER, SELFPAY | PROVIDERS: PCP Internal Medicine; Visit Provider Internal Medicine | DX: E53.8 Deficiency of other specified B group vitamins (principal) | CPT/HCPCS: 96372; J3420 ==

== ENCOUNTER 2024-08-31 11:39 | Outpatient (AMB) | payer MEDICARE, OTHER, SELFPAY ==
--- NOTE | 2024-08-31 12:35 | MHC.PC.OV ---
Vital Signs 08/31/24 12:44 Height 5 ft 5 in Weight 124 lb BMI 20.6 BP 138/72 Blood Pressure Location Rt brachial Position Sitting Pulse 62 Pulse Source Pulse Oximeter Pulse Oximetry (%) 96 Oxygen Delivery Method Room Air Intake Visit Reasons: legs uncomfortable/itching Intake Note: Pt is here today c/o legs/uncomfortable and itchy Allergies No Known Allergies Allergy (Verified 08/31/24 13:04) Medication List - Last Reconciled 08/31/24 by Magy Romero MD acetaminophen (Tylenol Extra Strength) 500 mg PO QPM PRN acetaminophen-codeine 300-15 mg 1 tab PO DAILY PRN buspirone 7.5 mg PO .qhs calcium carbonate (Calcium 500) 500 mg PO DAILY cyanocobalamin (vitamin B-12) 1,000 mcg IM Q4W denosumab (Prolia) 60 mg subcut [id number] furosemide 20 mg PO QAM PRN lisinopril 2.5 mg PO DAILY miscellaneous medical supply Elevated toilet seat with handles omeprazole 20 mg PO DAILY primidone 100 mg PO BID propranolol ER 60 mg PO DAILY Tobacco use date assessed: 08/31/24 Fall risk assessment: No Falls in past year Last assessed Fall Risk: 08/31/24 Dental Screening Dental Screen Date: 08/31/24 Did you have a dental visit in the last 12 months?: No Did you have a dental problem in the last 6 months where you did not have access to dental care?: No Was dental information given to patient?: Patient declined HPI legs uncomfortable/itching HPI Details 88-year-old lady here today complaining of extreme itching in left lower extremity usually after showering. She has been applying Jergens cream and has now switched to Aveeno oatmeal which has not afforded any relief. Denies any rash . She is also requesting a letter to be written to [employer] authority to decrease the height of her bathtub so that she can easily get in and out of the tub when she showers.. She has a hard time lifting her leg up over the edge of the tub due to her severe arthritis, problems with balance and gait instability.. Would also like to see if she can get another prescription for short course of Tylenol with codeine, which she takes only for severe joint pain when the Tylenol does not help anymore. 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 Mother Arthritis Son No problems noted. Daughter No problems noted. Brother No problems noted. Social History [facility]: [facility] Alcohol intake: former Patient Tobacco Use Status: Never used Tobacco Tobacco use type: Cigarette e-Cigarette/Vaping Use: Never Used Second Hand Smoke Exposure: Yes Current occupational status: retired Current occupation: Retired Cognitive needs: No Hearing needs: No Vision needs: Yes Questionnaire PHQ-9 Over the last 2 weeks, how often have you been bothered by any of the following problems? 1. Little interest or pleasure in doing things: not at all 2. Feeling down, depressed, or hopeless: not at all 3. Trouble falling or staying asleep, or sleeping too much: not at all 4. Feeling tired or having little energy: not at all 5. Poor appetite or overeating: not at all 6. Feeling bad about yourself - or that you are a failure or have let yourself or your family down: not at all 7. Trouble concentrating on things, such as reading the newspaper or watching television: not at all 8. Moving or speaking so slowly that other people could have noticed. Or the opposite - being so fidgety or restless that you have been moving around a lot more than usual: not at all 9. Thoughts that you would be better off or of hurting yourself in some way: not at all Total score: 0 Depression Screening Interpretation: Negative Depression Screening Done: Yes 40957 - PHQ-9 Billing: Yes Source: Developed by Drs. Brian Gomez, Peg Reyez, John Saucedo and colleagues, with an educational tati from [employer]. Thrive Questionnaire Date Thrive assessed: 08/31/24 I am a: Patient What is your living situation today?: I choose not to answer this question Within the past 12 months, did the food you bought not last and you didn't have the money to get more?: I choose not to answer this question Within the past 12 months, did you worry whether your food would run out before you got money to buy more?: I choose not to answer this question Do you have trouble paying for medicines?: I choose not to answer this question Do you have trouble getting transportation to medical appointments?: I choose not to answer this question Do you have trouble paying your heating and electricity bill?: I choose not to answer this question Do you have trouble taking care of your child, family member or friend?: I choose not to answer this question Do you have trouble with day-to-day activities such as bathing, preparing meals, shopping, managing finances, etc.?: I choose not to answer this question Are you currently unemployed and looking for a job?: I choose not to answer this question Are you interested in more education?: I choose not to answer this question Please select the resources that you would like help with: None Currently or been in a relationship where the following occur: I choose not to answer THRIVE Score: 0 AUDIT C Alcohol Use Questionnaire (AUDIT-C) 1. How often do you have a drink containing alcohol?: Never Total Score: 0 MICHAEL-7 AMB Questionnaire MICHAEL-7 Date MICHAEL - 7 assessed: 08/31/24 Feeling nervous, anxious, or on edge: 0 = Not at all Not being able to stop or control worryin = Several days Worrying too much about different things: 1 = Several days Trouble relaxin = Not at all Being so restless that it is hard to sit still: 0 = Not at all Becoming easily annoyed or irritable: 0 = Not at all Feeling afraid as if something awful might happen: 1 = Several days Total MICHAEL-7 score (0-4 normal; 5-9 mild; 10-14 moderate; 15-21 severe): 3 Source: Developed by Drs. Brian Gomez, Peg Reyez, John Saucedo and colleagues, with an educational tati from [employer]. MICHAEL-7 Assessment Billing MICHAEL-7 Assessment Tool: MICHAEL-7 Assessment 87214 Review of Systems Const All systems reviewed & are unremarkable except as noted in HPI and below Endo Details: Patient states that she is having hard time gaining weight despite eating 3 meals a day Physical exam (Primary Care) Vital Signs: Last Vital Signs Pulse 62 08/31/24 12:44 BP 138/72 08/31/24 12:44 Pulse Ox 96 08/31/24 12:44 Oxygen Delivery Method Room Air 08/31/24 12:44 BMI result Body Mass Index 20.6 Tobacco/Smoking Status: Tobacco use Status Tobacco use date assessed 08/31/24 08/31/24 12:50 Patient Tobacco Use Status Never used Tobacco 08/31/24 12:36 Tobacco use type Cigarette 08/31/24 12:36 e-Cigarette/Vaping Use Never Used 08/31/24 12:36 PHQ-9: PHQ-9 Score PHQ-9: Total score 3 08/31/24 13:19 Depression Screening Interpretation: Negative Thrive Assessment: Date of Thrive Assessment Date Thrive assessed 08/31/24 08/31/24 12:50 Currently or been in a relationship where the following occur: I choose not to answer Const Other: Ambulatory with a cane General: no acute distress and Physically active Orientation/consciousness: patient oriented x3 Limitations: ambulation with cane Neck Neck: Yes full ROM, Yes no lymphadenopathy and Yes supple Resp Auscultation: clear to auscultation bilaterally Cardio Rate: regular rate Rhythm: regular rhythm Heart sounds: S1 normal heart sound present and S2 normal heart sound present GI Palpation (GI): Soft to palpation, nontender and no guarding Back/Spine/Pelvis Other: Tenderness on palpation over paraspinal muscles in lumbar area positive kyphosis Thoracic/Lumbar Spine: thoracic and lumbar spine normal to inspection and straight leg raise negative bilaterally Skin General skin exam: no rashes or lesions noted Neuro General: patient oriented x3, gait normal and Normal light touch and pain sensation Extrem General: Yes no clubbing, cyanosis or edema and Yes no calf tenderness Coding Level of Care Code Est Pt Level 4 (24611) Diagnoses Primary osteoarthritis of both hips M16.0 Osteoarthritis type: primary Lumbar disc herniation with radiculopathy M51.16 Dry skin dermatitis L85.3 Weight disorder R63.8 Additional Codes PHQ-9 - 66891 - PHQ-9 Billing: Yes ([id number]) MICHAEL-7 Assessment Billing - MICHAEL-7 Assessment Tool: MICHAEL-7 Assessment 81790 ([id number]) Assessment & Plan Assessment & Plan (1) Osteoarthritis, hip, bilateral: Code(s): M16.0 - Bilateral primary osteoarthritis of hip Category: Medical Qualifiers: Osteoarthritis type: primary Qualified Code(s): M16.0 - Bilateral primary osteoarthritis of hip Plan: Prescription sent for Tylenol with codeine, 410 tablets, use sparingly for severe joint (2) Lumbar disc herniation with radiculopathy: Code(s): M51.16 - Intervertebral disc disorders with radiculopathy, lumbar region Category: Medical Plan: Takes Tylenol extra strength 500 mg twice a day as needed for joint pain. Letter was written to [facility] due decreased to height of the sides of her bathtub psoas patient can easily get in and out of it when taking her shower (3) Dry skin dermatitis: Code(s): L85.3 - Xerosis cutis Category: Medical Plan: Advised to try using Eucerin eczema cream instead of Aveeno (4) Weight disorder: Code(s): R63.8 - Other symptoms and signs concerning food and fluid intake Plan: Will refer to Faby nurse navigator, for dietary guidance Medications: Refilled acetaminophen-codeine 300-15 mg 1 tab PO DAILY PRN 10 tabs 0RF pain (scale score 7-10)
[2024-08-31 12:44] VITALS: BP 138/72; PULSE 62; O2SAT 96; BMI 20.6
== END 2024-08-31 13:21 | disposition home or self-care (01) ==
PROVIDERS: PCP Internal Medicine; Visit Provider Internal Medicine
DX: M16.0 Bilateral primary osteoarthritis of hip (principal); M51.16 Intervertebral disc disorders with radiculopathy, lumbar region; L85.3 Xerosis cutis; R63.8 Other symptoms and signs concerning food and fluid intake

== ENCOUNTER → 2024-08-31 11:39 | Outpatient (BNVA) | payer MEDICARE, OTHER, SELFPAY | PROVIDERS: PCP Internal Medicine; Visit Provider Internal Medicine | DX: M16.0 Bilateral primary osteoarthritis of hip (principal); M51.16 Intervertebral disc disorders with radiculopathy, lumbar region; L85.3 Xerosis cutis; R63.8 Other symptoms and signs concerning food and fluid intake | CPT/HCPCS: 96127; 99212 ==

== ENCOUNTER 2024-09-07 11:01 | Outpatient (AMB) | payer MEDICARE, OTHER, SELFPAY ==
--- NOTE | 2024-09-07 11:23 | AM.OFFVISNUR ---
Intake Visit Reasons: B-12 Allergies No Known Allergies Allergy (Verified 08/31/24 13:04) Nursing Note Pt came, Ambulate (I) gait steady with a cane c/o r lower back pain. Medicated x 1 with Vitamin B12 to right deltoid. Pt tolerated well. Office Meds cyanocobalamin (vitamin B-12) 1,000 mcg/mL injection solution Performing Provider: Magy Romero MD [place] [facility] [place] Administered by: Alva Wang on 09/07/24 11:24 Dose Route Admin Location Dispensed Lot Number Expiration Date [facility] Load Out Supervisor 1,000 mcg IM right deltoid 1 mL [id number] 06/14/26 10808-127-97 SIMA STARKS Assessment & Plan Assessment & Plan Orders: Orders AMB Vitamin B12 Injection Patient Supplied Today E53.8 - Deficiency of other specified B group vitamins Medications: New cyanocobalamin (vitamin B-12) 1,000 mcg IM ONCE 1 mL 0RF E53.8 - Deficiency of other specified B group vitamins
--- OUTSIDE RECORDS SUMMARY | 2024-09-07 12:50 | XMS_ITS | Continuity of Care Document ---
Author Name [facility] Organization [facility] Care Team Providers Care Counter Waitress/Waiter Name Role Phone [facility] Unavailable Unavailable Medications Combined list of outpatient medications from Department of Defense and Veterans Affairs facilities.Medications provided include 1) outpatient medications from the last 15 months, and 2) patient-reported medications. Medication Details Route Status Patient Instructions Prescription Expires Prescription Number Last Dispense Date Ordering Provider Order Date Order Qty Source BUSPIRONE HCL (buspirone HCl), 7.5 MG, TABLET, ORAL, [employer] 100 ea. BOTTLE Active [id number] 4 2023 90 Pharmac y Data Transac tion Service Facilit y CELECOXIB (celecoxib) , 200 MG, CAPSULE, ORAL, SOLA PHARMACEU, 500 ea. BOTTLE Active [id number] 4 2023 90 Pharmac y Data Transac tion Service Facilit y CELECOXIB (celecoxib) , 200 MG, CAPSULE, ORAL, [employer]ACE[employer], 500 ea. BOTTLE Active [id number] 4 2023 90 Pharmac y Data Transac tion Service Facilit y LISINOPRIL (lisinopril ), 2.5 MG, TABLET, ORAL, EXELAN PHARMACE, 500 ea. BOTTLE Active [id number] 4 2023 90 Pharmac y Data Transac tion Service Facilit y LISINOPRIL (lisinopril ), 2.5 MG, TABLET, ORAL, EXELAN PHARMACE, 500 ea. BOTTLE Active [id number] 4 2023 90 Pharmac y Data Transac tion Service Facilit y LISINOPRIL (LISINOPRIL ), 2.5MG, TABLET, ORAL, LUPIN PHARMACEU, 500 ea. BOTTLE Active [id number] 4 2023 90 Pharmac y Data Transac tion Service Facilit y OMEPRAZOLE (omeprazole ), 20 MG, CAPSULE DR, ORAL, [employer], 1000 ea. BOTTLE Active [id number] 4 2023 90 Pharmac y Data Transac tion Service Facilit y OMEPRAZOLE (omeprazole ), 20 MG, CAPSULE DR, ORAL, [employer], 1000 ea. BOTTLE Active [id number] 4 2023 90 Pharmac y Data Transac tion Service Facilit y PRIMIDONE (PRIMIDONE) , 50 MG, TABLET, ORAL, AV FAZAL, 500 ea. BOTTLE Cancele d [id number] 4 [id number] : 2023 0 Pharmac y Data Transac tion Service Facilit y PRIMIDONE (primidone) , 50 MG, TABLET, ORAL, [employer], 500 ea. BOTTLE Cancele d [id number] : 2023 0 Pharmac y Data Transac tion Service Facilit y PRIMIDONE (PRIMIDONE) , 50MG, TABLET, ORAL, [employer], 100 ea. BOTTLE Active [id number] 4 2023 270 Pharmac y Data Transac tion Service Facilit y PROPRANOLOL HCL ER (propranolo l HCl), 60 MG, CAP SA 24H, ORAL, [employer], 100 ea. BOTTLE Active [id number] 4 2023 90 Pharmac y Data Transac tion Service Facilit y PROPRANOLOL HCL ER (propranolo l HCl), 60 MG, CAP SA 24H, ORAL, [employer], 100 ea. BOTTLE Active [id number] 4 2023 90 Pharmac y Data Transac tion Service Facilit y PROPRANOLOL HCL ER (propranolo l HCl), 60 MG, CAP SA 24H, ORAL, [employer], 100 ea. BOTTLE Active [id number] 4 2023 90 Pharmac y Data Transac tion Service Facilit y Immunizations Combined list of available immunizations from the Department of Defense and Veterans Affairs facilities. Immunization Series Date Given Administered By Site Reaction Lot Number CVX Code Drug Masonry Inspector Status Comments Source COVID-19, mRNA, LNP-S, PF, 30 mcg/0.3 mL dose, susana-sucrose 2021 RAMÍREZ [employer] [place] (PFR) Not Given COVID-19, mRNA, LNP-S, PF, 30 mcg/0.3 mL dose, susana-sucr ose DoD COVID-19, mRNA, LNP-S, PF, 30 mcg/0.3 mL dose 2020 MIRNA, [employer] [place] (PFR) Not Given COVID-19, mRNA, LNP-S, PF, 30 mcg/0.3 mL dose DoD influenza, high-dose, quadrivalent 2020 KARILI, () Not Given influenza , high-dose , quadrival ent DoD Influenza, high dose seasonal 2018 BOGDASARIAN, () Not Given Influenza , high dose seasonal DoD pneumococcal polysaccharid e PPV23 2018 BOGDASARIAN, () Not Given pneumococ justyna polysacch aride PPV23 DoD zoster recombinant 2017 BOGDASARIAN, () Not Given zoster recombina nt DoD Social History Combined list of available smoking, tobacco, and other social history from Department of Defense and Veterans Affairs facilities. Social History Type Response Date Comment Sour e This section is an empty social history section. DoD
== END 2024-09-07 11:19 | disposition home or self-care (01) ==
PROVIDERS: PCP Internal Medicine; Visit Provider Internal Medicine
DX: E53.8 Deficiency of other specified B group vitamins (principal)

== ENCOUNTER → 2024-09-07 11:01 | Outpatient (BNVA) | payer MEDICARE, OTHER, SELFPAY | PROVIDERS: PCP Internal Medicine; Visit Provider Internal Medicine | DX: E53.8 Deficiency of other specified B group vitamins (principal) | CPT/HCPCS: 96372; J3420 ==

== ENCOUNTER → 2024-09-10 13:25 | Outpatient (BNVA) | payer MEDICARE, OTHER, SELFPAY | PROVIDERS: PCP Internal Medicine ==

== ENCOUNTER 2024-09-22 12:41 | Outpatient (REF) | payer MEDICARE, OTHER, SELFPAY ==
--- NOTE | ~2024-09-22 | MR_ITS ---
EXAMINATION: MR LUMBAR SPINE WITHOUT CONTRAST CLINICAL INFORMATION: Increasing low back pain radiating to right lower extremity. COMPARISON: MRI dated July 01, 2020. TECHNIQUE: MRI of the lumbar spine was obtained using routine sequences without contrast. FINDINGS: Last rib-bearing vertebra labeled T12. Dextroconvex rotoscoliosis apex at L1-2. Levoconvex scoliosis apex at L4-5. No bone marrow STIR signal abnormality. Multilevel marginal osteophyte formation and disc desiccation T11-12 to L5-S1. Grade 1 anterolisthesis, L5-S1. Conus medullaris ends at superior endplate of L1 with normal signal. T11-12: No disc herniation.. T12-L1: No disc herniation. L1-2: Broad-based disc bulging. Facet joint and ligamentum flavum hypertrophy. No gross central spinal canal or neuroforamina stenosis. L2-3: Broad-based disc bulging. Facet joint and ligamentum flavum hypertrophy. Reduced AP diameter of the thecal sac likely encroaching the neural elements. Bilateral neuroforamina narrowing. L3-4: Broad-based disc bulging. Facet joint and ligamentum flavum hypertrophy. Reduced AP diameter of the thecal sac and bilateral neuroforamina narrowing likely encroaching the neural elements. L4-5: Broad-based disc bulging. Facet joint and ligamentum flavum hypertrophy. Reduced AP diameter of the thecal sac. Right neuroforamina and stenosis likely compressing the neural elements. L5-S1: Broad-based disc bulging. Facet joint and ligamentum flavum hypertrophy. Reduced AP diameter of the thecal sac. Bilateral neuroforamina stenosis likely encroaching the exiting nerve roots. Fatty atrophy of the lower lumbar muscles from L2 to the sacrum. There is a 3.5 cm exophytic isointense T1 and T2 lesion in the anterior midportion/lower pole left kidney. Multifocal exophytic hyperintense T2 cystic lesions throughout the left kidney. Layering intraluminal isointensity lesions in the gallbladder. Multifocal different sizes hyperintense T2 lesions in the left hepatic lobe Volume loss of the right psoas muscle. Fat-containing umbilical hernia.. MR/MR lumbar spine wo con IMPRESSION: Multilevel thoracolumbar spondylosis with a dextroconvex rotoscoliosis apex at L1-2 and a levoconvex scoliosis apex at L4-5 resulting in central spinal canal stenosis and bilateral neuroforamina stenosis from L2-3 to L5-S1 more conspicuous at L5-S1. Grade 1 anterolisthesis L5-S1 on a degenerative basis. Renal mass, left kidney. Recommend further evaluation with contrast enhanced CT versus MRI protocol. Cholelithiasis. Multifocal cystic lesions, hepatic. Electronically signed by: Williams Plascencia MD 09/23/2024 07:26 AM [facility]
--- OUTSIDE RECORDS SUMMARY | 2024-09-22 13:36 | XMS_ITS | Patient Health Record ---
Author Organization [facility] Address [address] [place] [address] Care Team Providers Care Hay Sorter Name Role Phone Heather CONNORS, Magy Primary Care Provider Brian Tam Unavailable [phone] SALOMÓN CHAMPION Unavailable Unavailable ALLERGIES Allergen (clinical drug ingredient) Drug/Non Drug Allergy documented on EMR Reaction Allergy Type Onset Date Status Codeine Phosphate Unknown Drug Allergy Active REASON FOR REFERRAL No Information MEDICATIONS Medication SIG (Take, Route, Frequency, Duration) Notes Start Date End Date Status CeleBREX 100 MG 1 capsule with food Orally Twice a day Active Propranolol HCl 60 MG 1 tablet Orally on ce a day Active Omeprazole 20 MG 1 capsule Oral Once a day Active Sucralfate 1 GM/10ML SHAKE LQ AND TK 10 ML PO BID Oral for 30 Not-Taking Vitamin B12 1000 MCG 1 tablet Orally Onc e a day Active Vitamin D3 1000 UNIT 1 capsule Orally On ce a day Active Primidone 50 MG Orally Acti ve Rosuvastatin Calcium 10 MG 1 tablet Orally Once a day for 30 day(s) Active Calcium 600 MG 1 tablet with meals Orally Once a day Active Prolia 60 MG/ML injection Subcutaneo us once a month Active IMMUNIZATIONS Vaccine Route Administration Date Status Comme nts Influenza Unknown 04/26/2016 Administered Influenza Unknown 04/26/2019 Administered Influenza Unknown 04/26/2020 Administered SOCIAL HISTORY Sex Assigned At : Social History Observation Description Sex Assigned At Unknown PROBLEMS Problem Type ICD Code Onset Dates Problem Status W/U Status Risk SNOMED Code Notes Problem Erosive esophagitis (K22.10) Active confirmed 18611313 Problem Gastroesophageal reflux disease with esophagitis (K21.0) Active confirmed 922764597 Problem Constipation, unspecified constipation type (K59.00) Active confirmed 26832816 Problem Lower abdominal pain (R10.30) Active confirmed 36359917 Problem Esophagitis (K20.9) Active confirmed 16 680161 Problem Cough (R05) Active confirmed 73781957 PLAN OF TREATMENT Pending Test Test Name Order Date XR CHEST 2 VIEW PA & LAT 04/25/2021 Future Test Test Name Order Date UPPER GI ENDOSCOPY 11/13/2016 Insurance Providers Payer Name Payer Address Payer Phone Subscriber Number Group Number Insured Name Patient Relationship to Insured Coverage Start Date Coverage End Date MEDICARE OF [place] [address] [place] [address] [id number] HITESH JACOBS Self - patient is the insured [employer] [address] [place] [address] [id number] ARLENE HITESH Self - patient is the insured MEDICAL (GENERAL) HISTORY Medical History History ICD Code Colonoscopy 03-10-2010--diver ticulosis and a hyperplastic polyp--with Dr. Epps GERD--severe erosive esophag itis and a moderate sized hiatal hernia seen in August of 2015 upper endoscopy--- biopsies revealed questionable changes of a signet ring cell morphology in cells in the surface exudate of esophagitis--the pathologist felt that a neoplasm was unlikely, but recommended a followup endoscopy after healing of the esophagitis; a F/U endoscopy in 11/2016 revealed healing of the esophagitis--bx revealed a small area of Coombs's---no dysplasia Hypertension Tremors Elevated cholesterol Degenerative joint disease Denies MA,DM,CVA,Lung disease,renal dise ase Surgical History Surgery Date(Month/Year) Cataracts/lens implants 10/2006
--- OUTSIDE RECORDS SUMMARY | 2024-09-22 13:36 | XMS_ITS ---
Author Organization [facility] Address [address] [place] [address] Care Team Providers Care Recording Engineer Name Role Phone Heather CONNORS, Magy Todd Primary Care Provider Un available Bruce Dorsey Unavailable [phone] Encounters Encounter Location Date Provider Diagnosis [address] [address] 08/11/2024 Bruce Dorsey Plan Of Treatment No Information Progress Notes * JACOBS, Jocelyn CONNORSOB: [birth year] (88 yo F)Acc No.[id number]:08/11/2024 Progress Note Patient:Jocelyn FORD Provider:?Bruce Dorsey DPM :1935???Age:88 Y???Sex:Female D ate:08/11/2024 Address:[address] [place] [address] [address], [id number] Pcp:Louie Anderson Subjective: * Chief Complaints: * ??? * Medical History:? Objective: * Vitals:? Assessment: Plan: * Treatment: * Images: * The named appointment provid er may or may not be the originator of this progress note, and it is not deemed complete until electronically signed by the appointment provider. Sign off status: Pending * Provider:?Bruce Dorsey DPM Date:?2023 Generated for Ronaki gerhard/Kinjal/eTransmitting on:?09/22/2024 01:36 PM EST
--- OUTSIDE RECORDS SUMMARY | 2024-09-22 13:37 | XMS_ITS ---
Author Organization [facility] Address [address] [place] [address] Care Team Providers Care Locker Operator Name Role Phone Heather CONNORS, Magy Todd Primary Care Provider Un available Bruce Dorsey Unavailable [phone] REASON FOR VISIT no show Encounters Encounter Location Date Provider Diagnosis [address] [address] 08/11/2024 Bruce Dorsey Plan Of Treatment No Information Progress Notes * Jocelyn JACOBS MDOB: [birth year] (88 yo F)Acc No.[id number]:08/11/2024 Patient:?ARLENE Jocelyn Palma :1935???Age:88 Y???Sex:Female Address:[address] [place] [address] [address], [place], [address] * true * Date:? Generated for Ronaki gerhard/Kinjal/eTransmitting on:?09/22/2024 01:36 PM EST
--- OUTSIDE RECORDS SUMMARY | 2024-09-22 13:37 | XMS_ITS | Patient Health Record ---
Author Organization [facility] Address [address] [place] [address] Care Team Providers Care Presentation Manager Name Role Phone Heather CONNORS, Magy Todd Primary Care Provider Un available Bruce Dorsey Unavailable [phone] Allergies Allergen (clinical drug ingredient) Drug/Non Drug Allergy documented on EMR Reaction Allergy Type Onset Date Status Seasonale Unknown Drug Allergy Active codeine Codeine sensitive, feels sick Drug Allergy Active Reason For Referral No Information Medications Medication SIG (Take, Route, Frequency, Duration) Notes Start Date End Date Status Prolia every 6 months Active Vitamin D3 Active Vitamin B12 Active Calcium 1 tab Oral for 14 days Active Ciclopirox Olamine 0.77 % 1 application Externally Twice a day for 30 days Active Ammonium Lactate 12 % 1 application to affected area Externally to feet Twice a day for 30 days Active CeleBREX 200 MG 1 capsule Orally Once a day for 30 day(s) Active Losartan Potassium 25 MG as directed Orally Active Gabapentin Not-Takin g Hydrocortisone 2.5 % as directed Externally to feet Twice a day for 30 days Active Crestor 20 MG 1 tablet Orally Once a day for 30 day(s) Not-Taking Omeprazole 20 MG 1 capsule Orally Once a day for 30 day(s) Active PriLOSEC Not-Taking Lisinopril 5 MG 0.5 tablet Orally Once a day for 30 day(s) Active Inderal LA 60 MG 1 capsule Orally Once a day for 30 day(s) Not-Taking Propranolol HCl 60 MG 1 tablet on an empty stomach Orally Once a day for 30 day(s) Active HYDROcodone-Acetaminop hen 5-500 MG 1 capsule as needed Orally every 6 hrs Not-Taking Primidone 50 MG as directed Orally Active Aspirin 81 MG 1 tablet Orally Once a day for 30 day(s) Not-Taking Immunizations Vaccine Route Administration Date Status Comme nts COVID-19 Pfizer BioNTech Vaccine Unknown 06/21/2021 Administered 1st 11/21/2020 2nd 12/12/2020 Social History Tobacco Use: Social History Observation Description Date Details (start date - stop date) Never Smoker NA - NA Tobacco Use/Smoking Question Answer Notes Are you a: nonsmoker Additional Findings: Tobacco Non-User Aggressive non-smoker Alcohol Screen Question Answer Notes Did you have a drink containing alcohol in the p ast year? No Points 0 Interpretation Negative Tobacco use other than smoking: Question Answer Notes Are you an other tobacco user? 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) Active confirmed Problem [id number] Atherosclerosis of [place] artery of both lower extremities, with unspecified presence of clinical manifestation (I70.203) Active confirmed Vital Signs Blood pressure diastolic 70 mm Hg 05/05/2024 Height 5 ft 4 in in 05/05/2024 Blood pressure systolic 120 mm Hg 05/05/2024 Weight 135 lbs 05/05/2024 BMI 23.17 kg/m2 05/05/2024 Procedures Procedure Date Ordered Date Performed Result Body Sit e 59035-OSBOOUQ NAIL, 6 OR MORE 12/03/2023 N/A 07817-Dlwjjhlf Plate 12/03/2023 N/A 82970-ULZE SKIN LESIONS, OVER 4 12/03/2023 N/A 07696-TVEJDEY NAIL, 6 OR MORE 02/25/2024 N/A 90500-Sgrqgwej Plate 02/25/2024 N/A 39792-JVQO SKIN LESIONS, OVER 4 02/25/2024 N/A 55556-DVXWLTF NAIL, 6 OR MORE 05/05/2024 N/A 00073-OJNA SKIN LESIONS, OVER 4 05/05/2024 N/A Encounters Encounter Location Date Provider Diagnosis [facility] [address] [place] [address] 12/03/2023 Bruce Dorsey Atherosclerosis of hoon[place] artery of both lower extremities, with unspecified presence of clinical manifestation I70.203 ; Tinea unguium B35.1 ; Pain in right toe(s) M79.674 ; Pain in left toe(s) M79.675 and Ingrown nail L60.[address] [address] 02/25/2024 Bruce Dorsey Atherosclerosis of [place]oon[place] artery of both lower extremities, with unspecified presence of clinical manifestation I70.203 ; Tinea unguium B35.1 ; Pain in right toe(s) M79.674 ; Pain in left toe(s) M79.675 and Ingrown nail L60.[address] [address] 05/05/2024 Bruce Dorsey Atherosclerosis of [place]oon[place] artery of both lower extremities, with unspecified presence of clinical manifestation I70.203 ; Tinea unguium B35.1 ; Pain in right toe(s) M79.674 and Pain in left toe(s) M79.[address] [address] 05/05/2024 Bruce Dorsey [address] [address] 07/29/2024 Bruce Sunita [address] [address] 08/11/2024 Bruce Dorsey Assessments Encounter Date Diagnosis (ICD Code) Assessment Notes Treatment Notes Treatment Clinical Notes Section Notes 12/03/2023 Tinea unguium (ICD-10 - B35.1) 12/03/2023 Atherosclerosis of [place]oon[place] artery of both lower extremities, with unspecified presence of clinical manifestation (ICD-10 - I70.203) 02/25/2024 Tinea unguium (ICD-10 - B35.1) 02/25/2024 Atherosclerosis of [place] artery of both lower extremities, with unspecified presence of clinical manifestation (ICD-10 - I70.203) 05/05/2024 Tinea unguium (ICD-10 - B35.1) 05/05/2024 Atherosclerosis of [place] artery of both lower extremities, with unspecified presence of clinical manifestation (ICD-10 - I70.203) 05/05/2024 Pain in right toe(s) (ICD-10 - M79.674) 02/25/2024 Pain in right toe(s) (ICD-10 - M79.674) 12/03/2023 Pain in right toe(s) (ICD-10 - M79.674) 12/03/2023 Pain in left toe(s) (ICD-10 - M79.675) 02/25/2024 Pain in left toe(s) (ICD-10 - M79.675) 05/05/2024 Pain in left toe(s) (ICD-10 - M79.675) 02/25/2024 Ingrown nail (ICD-10 - L60.0) 12/03/2023 Ingrown nail (ICD-10 - L60.0) Plan Of Treatment Pending Test Test Name Order Date X ray : Foot, right 3V 12/28/2022 24638-MXSDMSW NAIL, 6 OR MORE 02/05/2023 78242-AGAJBBS NAIL, 6 OR MORE 11/13/2022 03805-TFTYFBC NAIL, 6 OR MORE 04/16/2023 04955-IIJKDFS NAIL, 6 OR MORE 07/02/2023 03920-RJYISQY NAIL, 6 OR MORE 09/20/2023 34127-THXJBCA NAIL, 6 OR MORE 12/03/2023 83737-ZDDARYF NAIL, 6 OR MORE 02/25/2024 33148-MYPHHRD NAIL, 6 OR MORE 05/05/2024 89461-PHXVPRH NAIL, 6 OR MORE 10/16/2011 95924-OKBVIOL NAIL, 6 OR MORE 01/15/2012 24587-RZJMPPA NAIL, 6 OR MORE 04/22/2012 25345-OMQVCQM NAIL, 6 OR MORE 07/22/2012 08241-DCWNNDM NAIL, 6 OR MORE 10/07/2012 23312-PIFYWBA NAIL, 6 OR MORE 12/30/2012 44831-AFMTIFE NAIL, 6 OR MORE 03/31/2013 68685-WCPBQHS NAIL, 6 OR MORE 06/30/2013 17494-BCVLLKT NAIL, 6 OR MORE 10/06/2013 61618-ZJWARNR NAIL, 6 OR MORE 01/05/2014 64276-XRPZKNH NAIL, 6 OR MORE 07/06/2014 11024-LKDCWYP NAIL, 6 OR MORE 10/26/2014 85023-GCKCZYE NAIL, 6 OR MORE 01/04/2015 40247-OKYECYJ NAIL, 6 OR MORE 04/05/2015 85441-XMMXLWK NAIL, 6 OR MORE 06/14/2015 04254-NSOFDTH NAIL, 6 OR MORE 04/02/2014 76935-QASKNRV NAIL, 6 OR MORE 09/06/2015 54278-WORBKZX NAIL, 6 OR MORE 12/02/2015 33915-EFRKYRF NAIL, 6 OR MORE 02/10/2016 41363-UPJAHUZ NAIL, 6 OR MORE 04/13/2016 16074-FRWHEQT NAIL, 6 OR MORE 06/22/2016 99909-VSYBWIZ NAIL, 6 OR MORE 09/04/2016 40986-BLCTMXK NAIL, 6 OR MORE 11/16/2016 42341-NEMLIKL NAIL, 6 OR MORE 01/29/2017 34646-WVBCUVI NAIL, 6 OR MORE 04/12/2017 59621-FLCONPB NAIL, 6 OR MORE 06/25/2017 54196-UMWDXCY NAIL, 6 OR MORE 09/03/2017 93593-XDVGRTK NAIL, 6 OR MORE 11/08/2017 82357-IGEXYML NAIL, 6 OR MORE 01/10/2018 40869-CMYNJJX NAIL, 6 OR MORE 03/25/2018 80052-KHBPVRJ NAIL, 6 OR MORE 05/27/2018 01785-RPSRGFP NAIL, 6 OR MORE 09/09/2018 27218-OPJZZUD NAIL, 6 OR MORE 12/05/2018 24677-GBYRILZ NAIL, 6 OR MORE 02/24/2019 35733-TGKBTYN NAIL, 6 OR MORE 05/29/2019 27553-JHSOYMQ NAIL, 6 OR MORE 08/04/2019 16772-XVFMLRE NAIL, 6 OR MORE 11/10/2019 79620-LDYQFSB NAIL, 6 OR MORE 02/02/2020 04448-OKBKEWW NAIL, 6 OR MORE 04/12/2020 45028-NFJRHIU NAIL, 6 OR MORE 06/24/2020 95673-DFBWWDK NAIL, 6 OR MORE 09/13/2020 22647-QAMCULW NAIL, 6 OR MORE 12/20/2020 13704-OPVEYFO NAIL, 6 OR MORE 02/28/2021 00696-ISHKYYV NAIL, 6 OR MORE 05/16/2021 42302-YJAPGZO NAIL, 6 OR MORE 09/15/2021 05797-DUUWLBH NAIL, OR MORE 11/17/2021 34185-NUAMACX NAIL, OR MORE 02/02/2022 88474-HHWNKXH NAIL, OR MORE 04/24/2022 83250-XJSVJAR NAIL, 6 OR MORE 07/06/2022 83310-BDVUMFA NAIL, OR MORE 09/11/2022 19633-Ezmpelir Plate 06/01/2022 75608-Bslodwhi Plate 09/11/2022 44419-Zckscvti Plate 04/24/2022 34150-Idakgxnk Plate 02/02/2022 99088-Spqsupde Plate 11/17/2021 34020-Njzawirp Plate 09/15/2021 23877-Zgafalss Plate 05/16/2021 42392-Mpeaucyh Plate 02/28/2021 10569-Nvygwuuu Plate 12/20/2020 26252-Ovlmnxqx Plate 09/13/2020 45709-Fqbzlfnl Plate 06/24/2020 55733-Zkehjdxm Plate 10/07/2012 05445-Gorwmerv Plate 04/12/2020 71585-Zpvfthat Plate 02/02/2020 21480-Dwcoklft Plate 11/10/2019 36166-Lwukchxa Plate 12/05/2018 05650-Okkmkkrb Plate 09/09/2018 59833-Khbteqsg Plate 05/27/2018 50567-Mdcinljs Plate 01/10/2018 94895-Abrotroi Plate 04/12/2017 44913-Wjwpcpns Plate 09/04/2016 62813-Ahrfwqjl Plate 09/06/2015 90795-Leygiico Plate 04/02/2014 53314-Siistvkn Plate 06/14/2015 64896-Lzabxfhi Plate 04/05/2015 36599-Sqmydnnj Plate 01/04/2015 59061-Lrusniwp Plate 10/26/2014 10743-Tuddwjwx Plate 07/06/2014 34936-Caldjpyt Plate 06/30/2013 87466-Oqxtqavz Plate 01/15/2012 28115-Xrtrdbvv Plate 02/25/2024 86479-Jvsotuhf Plate 12/03/2023 06345-Nhspfefc Plate 07/02/2023 99296-Vhnnfjzx Plate 04/16/2023 05036-Nfzfiyij Plate 11/13/2022 42780-Rixhzrdw Plate 02/05/2023 36711-Aofdkvdt Plate Each Additional 10/2014 85009-Djvsnmcn Plate Each Additional 07/2015 90676-Ukasqguc Plate Each Additional 06/2015 83844-Znwvwpmf Plate Each Additional 20649-Dmzowica Plate Each Additional 07/2019 61502-Qtvpetzc Plate Each Additional 29206-Ngsjvosl Plate Each Additional 93416-Qkdlxuzf Plate Each Additional 03627-Ltnctjwc Plate Each Additional 01/2021 73254-Nklipijz Plate Each Additional 30421-Mrvjqogi Plate Each Additional 72281-Gbucglfe Plate Each Additional 41918-Talnqezw Plate Each Additional 05/2022 57773 I&D ABSCESS- SIMPLE,SINGLE 014 98698 I&D ABSCESS- SIMPLE,SINGLE 012 17363 I&D ABSCESS- SIMPLE,SINGLE 023 57156-ZKBL SKIN LESIONS, OVER 4 05/05/20 24 58270-EBWH SKIN LESIONS, OVER 4 02/06/20 23 36369-JLKW SKIN LESIONS, OVER 4 11/14/19 23 98677-XOGU SKIN LESIONS, OVER 4 04/16/20 23 94486-JHDE SKIN LESIONS, OVER 4 07/02/20 23 09372-BSWN SKIN LESIONS, OVER 4 09/20/19 24 30152-NVBB SKIN LESIONS, OVER 4 12/03/19 24 85891-ZWTK SKIN LESIONS, OVER 4 02/25/20 24 97528-KIHN SKIN LESIONS, OVER 4 09/04/19 17 27699-UQNK SKIN LESIONS, OVER 4 11/17/19 17 53964-NYFF SKIN LESIONS, OVER 4 01/30/20 17 17820-KWVC SKIN LESIONS, OVER 4 06/22/20 16 12070-MUVS SKIN LESIONS, OVER 4 04/13/20 16 90448-FMHR SKIN LESIONS, OVER 4 04/12/20 17 29167-UDCT SKIN LESIONS, OVER 4 06/25/20 17 74715-NFNJ SKIN LESIONS, OVER 4 11/09/19 18 70049-GWOH SKIN LESIONS, OVER 4 09/03/19 18 33664-EBOA SKIN LESIONS, OVER 4 02/03/20 22 11788-MMER SKIN LESIONS, OVER 4 11/18/19 70152-BXXQ SKIN LESIONS, OVER 4 04/24/20 61137-DAJU SKIN LESIONS, OVER 4 07/06/20 13058-DQKE SKIN LESIONS, OVER 4 09/11/19 23 77064-IOWY SKIN LESIONS, OVER 4 09/15/19 21612-DQUP SKIN LESIONS, OVER 4 05/16/20 34927-HZLH SKIN LESIONS, OVER 4 02/29/20 28957-KGUO SKIN LESIONS, OVER 4 12/21/19 00983-THMN SKIN LESIONS, OVER 4 09/13/19 51314-BBUW SKIN LESIONS, OVER 4 06/24/20 69972-KZVR SKIN LESIONS, OVER 4 11/10/19 87075-DPZJ SKIN LESIONS, OVER 4 08/04/20 01581-XYHR SKIN LESIONS, OVER 4 02/02/20 22856-QXWR SKIN LESIONS, OVER 4 04/12/20 50017-YUCN SKIN LESIONS, OVER 4 12/06/19 19 54801-XWEG SKIN LESIONS, OVER 4 05/29/20 19 34624-QHSH SKIN LESIONS, OVER 4 02/25/20 19 38219-LSIB SKIN LESIONS, OVER 4 01/11/20 18 85904-ULNP SKIN LESIONS, OVER 4 03/25/20 18 30665-PNEO SKIN LESIONS, OVER 4 05/27/20 18 95832-OFRM SKIN LESIONS, OVER 4 09/09/19 19 23493-UHTL SKIN LESIONS, 2 TO 4 06/14/20 15 42806-DNJC SKIN LESIONS, 2 TO 4 04/05/20 15 25823-CTST SKIN LESIONS, 2 TO 4 04/02/20 14 58304-SZAD SKIN LESIONS, 2 TO 4 09/06/19 16 01461-NBHI SKIN LESIONS, 2 TO 4 02/10/20 16 84280-GTRG SKIN LESIONS, 2 TO 4 12/02/19 16 60659-NUGV SKIN LESIONS, 2 TO 4 01/15/20 12 41376-WYOB SKIN LESIONS, 2 TO 4 07/22/20 12 38854-AKIK SKIN LESIONS, 2 TO 4 04/22/20 12 71608-BUZI SKIN LESIONS, 2 TO 4 06/30/20 13 49596-HYQR SKIN LESIONS, 2 TO 4 03/31/20 13 89936-ETDG SKIN LESIONS, 2 TO 4 12/31/19 13 50936-IREX SKIN LESIONS, 2 TO 4 10/07/19 13 10986-YQZX SKIN LESIONS, 2 TO 4 07/06/20 14 36950-EDWQ SKIN LESIONS, 2 TO 4 01/06/20 14 15617-RNGU SKIN LESIONS, 2 TO 4 10/06/19 14 73567-COUP SKIN LESIONS, 2 TO 4 01/05/20 15 97244-HWGI SKIN LESIONS, 2 TO 4 10/27/19 15 Insurance Providers Payer Name Payer Address Payer Phone Subscriber Number Group Number Insured Name Patient Relationship to Insured Coverage Start Date Coverage End Date Medicare National [employer]t [employer] [address] [place] [address] [id number] Jocelyn Mejia Self - patient is the insured 2 [employer] [address] [place] [address] [id number] Brandon Mejia Spouse - patient is the spouse of the insured Medical (General) History Medical History History ICD Code Arthritis back pain Cholesterol Hiatal hernia osteoporosis reflux hypertension ASO/PVD Arthritis - Degenerative Surgical History Surgery Date(Month/Year) Hospitalization History Reason Date(Month/Year) [facility] Acid reflux 09/08-09/12 [facility]- Flu 10/15
--- OUTSIDE RECORDS SUMMARY | 2024-09-22 13:37 | XMS_ITS ---
Author Organization [facility] Address [address] [place] [address] Care Team Providers Care Print Machine Operator Name Role Phone Heather CONNORS, Magy Todd Primary Care Provider Un available Bruce Dorsey Unavailable [phone] Encounters Encounter Location Date Provider Diagnosis [address] [address] 07/31/2024 Bruce Dorsey Plan Of Treatment No Information Progress Notes * JACOBS, Jocelyn CONNORSOB: [birth year] (88 yo F)Acc No.[id number]:07/31/2024 Progress Note Patient:Jocelyn FORD Provider:?Bruce Dorsey DPM :1935???Age:88 Y???Sex:Female D ate:07/31/2024 Address:[address] [place] [address] [address], [place] Pcp:Louie Anderson Subjective: * Chief Complaints: * [...] DPM Date:?2023 Generated for Ronaki gerhard/Kinjal/eTransmitting on:?09/22/2024 01:37 PM EST
--- OUTSIDE RECORDS SUMMARY | 2024-09-22 13:37 | XMS_ITS | Continuity of Care Document ---
Author Name [facility] Organization [facility] Care Team Providers Care Chiller Hand Name Role Phone [facility] Unavailable Unavailable Medications Combined list of outpatient [...] ORAL, [employer] 100 ea. BOTTLE Active [id number] 4 2023 90 Pharmac y Data Transac tion Service Facilit y CELECOXIB (celecoxib) , 200 MG, CAPSULE, ORAL, SOLA PHARMACEU, 500 ea. BOTTLE Active [id number] 4 2023 90 Pharmac y Data Transac tion Service Facilit y CELECOXIB (celecoxib) , 200 MG, CAPSULE, ORAL, [employer]A [employer]ARMACEU, 500 ea. BOTTLE Active [id number] 4 2023 90 Pharmac y Data Transac tion Service Facilit y LISINOPRIL (lisinopril ), 2.5 MG, TABLET, ORAL, EXELAN PHARMACE, 500 ea. BOTTLE Active [id number] 4 2023 90 Pharmac y Data Transac tion Service Facilit y LISINOPRIL (lisinopril ), 2.5 MG, TABLET, ORAL, EXELAN PHARMACE, 500 ea. BOTTLE Active [id number] 4 2023 90 Pharmac y Data Transac tion Service Facilit y LISINOPRIL (LISINOPRIL ), 2.5MG, TABLET, ORAL, LUPIN PHARMACEU, 500 ea. BOTTLE Active [id number] 4 2023 90 Pharmac y Data Transac tion Service Facilit y OMEPRAZOLE (omeprazole ), 20 MG, CAPSULE DR, ORAL, [employer], 1000 ea. BOTTLE Active [id number] 4 2023 90 Pharmac y Data Transac tion Service Facilit y OMEPRAZOLE (omeprazole ), 20 MG, CAPSULE DR, ORAL, [employer], 1000 ea. BOTTLE Active [id number] 4 2023 90 Pharmac y Data Transac tion Service Facilit y PRIMIDONE (PRIMIDONE) , 50 MG, TABLET, ORAL, AV FAZAL, 500 ea. BOTTLE Cancele d [id number] 4 [id number] : 2023 0 Pharmac y Data Transac tion Service Facilit y PRIMIDONE (primidone) , 50 MG, TABLET, ORAL, [employer]ARM, 500 ea. BOTTLE Cancele d [id number] 4 [id number] : 2023 0 Pharmac y Data Transac tion Service Facilit y PRIMIDONE (PRIMIDONE) , 50MG, TABLET, ORAL, [employer], 100 ea. BOTTLE Active [id number] 4 2023 270 Pharmac y Data Transac tion Service Facilit y PROPRANOLOL HCL ER (propranolo l HCl), 60 MG, CAP SA 24H, ORAL, [employer], 100 ea. BOTTLE Active [id number] 4 2023 90 Pharmac y Data Transac tion Service Facilit y PROPRANOLOL HCL ER (propranolo l HCl), 60 MG, CAP SA 24H, ORAL, [employer], 100 ea. BOTTLE Active [id number] 4 2023 90 Pharmac y Data Transac tion Service Facilit y PROPRANOLOL HCL ER (propranolo l HCl), 60 MG, CAP SA 24H, ORAL, [employer], 100 ea. BOTTLE Active [id number] 4 2023 90 Pharmac y Data Transac tion Service Facilit y Immunizations Combined list of available immunizations from the Department of Defense and Veterans Affairs facilities. Immunization Series Date Given Administered By Site Reaction Lot Number CVX Code Drug Rehabilitation Services Counselor Status Comments Source COVID-19, mRNA, LNP-S, PF, 30 mcg/0.3 mL dose, susana-sucrose 2021 RAMÍREZ [employer] [place] (PFR) Not Given COVID-19, mRNA, LNP-S, PF, 30 mcg/0.3 mL dose, susana-sucr ose DoD COVID-19, mRNA, LNP-S, PF, 30 mcg/0.3 mL dose 2020 MIR[facility], [employer] [place] (PFR) Not Given COVID-19, mRNA, LNP-S, [...]
== END 2024-09-22 12:42 | disposition home or self-care (01) ==
LOC: HO.MRI 12:41
PROVIDERS: PCP Internal Medicine; Visit Provider Internal Medicine Rheumatology
DX: M54.41 Lumbago with sciatica, right side (principal)
CPT/HCPCS: 72148

== ENCOUNTER → 2024-09-22 12:50 | Outpatient (BNV) | payer MEDICARE, OTHER, SELFPAY | PROVIDERS: PCP Internal Medicine; Visit Provider Radiology Diagnostic Radiology | DX: M47.895 Other spondylosis, thoracolumbar region (principal); M48.07 Spinal stenosis, lumbosacral region; M41.86 Other forms of scoliosis, lumbar region; K80.20 Calculus of gallbladder without cholecystitis without obstruction; K76.89 Other specified diseases of liver | CPT/HCPCS: 72148 ==

== ENCOUNTER 2024-09-24 13:13 | Outpatient (AMB) | payer MEDICARE, OTHER, SELFPAY ==
--- NOTE | 2024-09-24 13:17 | MHC.OFFVIS ---
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 States the itching started a few months ago. They only itch when she touches them. 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 Complaints include pain over varicosities, swelling of lower extremities, cramping, fatigue. She in particular notices itching over the pretibial surface It has been affecting there daily activities including walking. It is noted more so in left leg. Patient denies any previous venous surgery or injections. Patient denies any history of DVT/ PE. Patient denies any history of phlebitis. Trial of compression includes - [id number] They now present for vascular evaluation regarding their varicose veins. 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 Mother Arthritis Son No problems noted. Daughter No problems noted. Brother No problems noted. Social History Housing: Condominium Alcohol intake: former Patient Tobacco Use Status: Never used Tobacco Tobacco use type: Cigarette e-Cigarette/Vaping Use: Never Used Second Hand Smoke Exposure: Yes Current occupational status: retired Current occupation: Retired Cognitive needs: No Hearing needs: No Vision needs: Yes Review of Systems Const All systems reviewed & are unremarkable except as noted in HPI and below Reports no additional complaints ENT Reports Normal hearing present Card Denies chest pain, Denies chest pain at rest, Denies chest pain with activity and Denies pedal edema Resp Denies cough GI Denies abdominal pain Musc Details: pain over varicosities, aching of lower extremities, swelling, cramping, heaviness and tiredness, itching Denies abnormal gait, Denies muscle cramps and Denies radiating pain into limb Skin/Breast Denies skin ulcer and Denies wounds Neuro Reports Normal hearing present and Denies abnormal gait Psych Reports no additional complaints Physical Exam Vital Signs: BMI result Body Mass Index 21.0 Const General: cooperative, healthy appearing and comfortable Orientation/consciousness: oriented to person, oriented to place and oriented to time HEENT Head: Yes normal to inspection Neck Neck: Yes normal visual inspection Carotids: no bruits Chest Chest palpation & inspection: normal inspection of the chest Resp Effort & Inspection: normal respiratory effort and able to speak in complete sentences Auscultation: clear to auscultation bilaterally, no crackles, no rales, no rhonchi and no wheezes Cardio Rate: regular rate Rhythm: regular rhythm Heart sounds: S1 normal heart sound present and S2 normal heart sound present Bruits: no carotid bruits Peripheral pulses: Peripheral pulses 2+ throughout GI Inspection: Yes normal to inspection Skin Other: +2 edema, varicosities over left pretibial surface CEAP Classification C4 - skin color changes Ep - Etiology Primary As - superficial veins P - reflux General skin exam: dry skin Wounds: no wounds Hair: normal Neuro General: oriented to person, oriented to place and oriented to time Cranial nerves: Yes CN's II-XII intact bilaterally and Yes Normal hearing present Cognition (Neuro): normal cognition Motor exam (neuro): 5/5 motor strength present throughout Extrem Other: venous exam: No significant superficial varicosities or spider telangiectasias, minimal edema General: No clubbing, No cyanosis and No edema Right lower extremity: full ROM, normal capillary refill and edema Left lower extremity: full ROM, normal capillary refill and edema Psych Appearance: grossly normal Mental Status: mental status grossly normal Speech and movement: Normal speech and movement present Assessment & Plan Assessment & Plan (1) Varicose veins of left lower extremity with inflammation: Code(s): I83.12 - Varicose veins of left lower extremity with inflammation Category: Medical Plan: In short, the patient has evidence of venous insufficiency. I have discussed the pathophysiology with the patient. In addition I have provided informational material regarding venous disease to the patient. We have discussed conservative measures including compression, elevation, and exercise. I have also provided a handout regarding appropriate use of compression stockings and where to purchase good compression stockings as well. I have taken the liberty of ordering venous insufficiency testing with the patient. They will follow up with me after testing. In addition I have recommended hydrocortisone cream for the itching. The patient had an opportunity to ask questions regarding the treatment plan. All questions were answered. Imaging studies, laboratory studies and physical exam results were discussed and reviewed in detail. No major barriers to understanding were identified. The patient expressed understanding and agreement with the above treatment plan. The patient is aware they should contact our office by phone for worsening of the current condition or the appearance of new symptoms. Thank you for allowing me to participate in the vascular care of this patient. If you have any questions or concerns regarding the treatment for the above condition please do not hesitate to contact me. The office telephone contact is [phone]. This note is constructed using voice recognition software. While every effort has been made to ensure accuracy, bull gang worker errors may have been included. Thank you for allowing me to participate in the care of your patient. Yours sincerely, Mauricio Salcedo MD, FACS, R.P.V.I. Orders: Orders US venous duplex LE BI 1 Week I83.12 - Varicose veins of left lower extremity with inflammation Coding Level of Care Code New Pt Level 4 (60449) Diagnoses Varicose veins of left lower extremity with inflammation I83.12
[2024-09-24 13:20] VITALS: BMI 21.0
--- OUTSIDE RECORDS SUMMARY | 2024-09-24 17:07 | XMS_ITS ---
Author Organization [facility] Address [address] [place] [address] Care Team Providers Care Blurb Writer Name Role Phone Heather CONNORS, Magy Todd Primary Care Provider Un available Bruce Dorsey Unavailable [phone] Encounters Encounter Location Date Provider Diagnosis [address] [address] 08/11/2024 Bruce Dorsey Plan Of Treatment No Information Progress Notes * JACOBS, Jocelyn CONNORSOB: [birth year] (88 yo F)Acc No.[id number]:08/11/2024 Progress Note Patient:Jocelyn FORD Provider:?Bruce Dorsey DPM :1935???Age:88 Y???Sex:Female D ate:08/11/2024 Address:[address] [place] [address] [address], [id number] Pcp:Louie Anderson Subjective: * Chief Complaints: * ??? * Medical History:? Objective: * Vitals:? Assessment: Plan: * Treatment: * Images: * The named appointment provid er may or may not be the originator of this progress note, and it is not deemed complete until electronically signed by the appointment provider. Sign off status: Pending * Provider:?Bruce Dorsey DPM Date:?2023 Generated for Ronaki gerhard/Kinjal/eTransmitting on:?09/24/2024 05:07 PM EST
--- OUTSIDE RECORDS SUMMARY | 2024-09-24 17:07 | XMS_ITS ---
Author Organization [facility] Address [address] [place] [address] Care Team Providers Care Tours Hostess Name Role Phone Heather CONNORS, Magy Todd Primary Care Provider Un available Bruce Dorsey Unavailable [phone] REASON FOR VISIT no show Encounters Encounter Location Date Provider Diagnosis [address] [address] 08/11/2024 Bruce Dorsey Plan Of Treatment No Information Progress Notes * Jocelyn JACOBS MDOB: [birth year] (88 yo F)Acc No.[id number]:08/11/2024 Patient:?ARLENE Jocelyn Palma :1935???Age:88 Y???Sex:Female Address:[address] [place] [address] [address], [place], [address] * true * Date:? Generated for Ronaki gerhard/Kinjal/eTransmitting on:?09/24/2024 05:07 PM EST
--- OUTSIDE RECORDS SUMMARY | 2024-09-24 17:07 | XMS_ITS | Patient Health Record ---
Author Organization [facility] Address [address] [place] [address] Care Team Providers Care Steward/Stewardess Room Name Role Phone Heather CONNORS, Magy Primary Care Provider Brian Tam Unavailable [phone] SALOMÓN CHAMPION Unavailable Unavailable ALLERGIES Allergen (clinical [...] Notes Problem Erosive esophagitis (K22.10) Active confirmed 16734772 Problem Gastroesophageal reflux disease with esophagitis (K21.0) Active confirmed 193136459 Problem Constipation, unspecified constipation type (K59.00) Active confirmed 02987091 Problem Lower abdominal pain (R10.30) Active confirmed 35232508 Problem Esophagitis (K20.9) Active confirmed 16 143633 Problem Cough (R05) Active confirmed 10391912 PLAN OF TREATMENT Pending Test Test Name Order Date XR CHEST 2 VIEW PA & LAT 04/25/2021 Future Test Test Name Order Date UPPER GI ENDOSCOPY 11/13/2016 Insurance Providers Payer Name Payer Address Payer Phone Subscriber Number Group Number Insured Name Patient Relationship to Insured Coverage Start Date Coverage End Date MEDICARE OF [place] [address] [place] [address] [id number] HITESH JACOBS Self - patient is the insured [employer] [address] [place] [address] [phone] [id number] ARLENE HITESH Self - patient is the [...] Tremors Elevated cholesterol Degenerative joint disease Denies [place],DM,CVA,Lung disease,renal dise ase Surgical History Surgery Date(Month/Year) Cataracts/lens implants 10/2006
--- OUTSIDE RECORDS SUMMARY | 2024-09-24 17:07 | XMS_ITS | Continuity of Care Document ---
Author Name [facility] Organization [facility] Care Team Providers Care Reclamation Engineer Name Role Phone [facility] Unavailable Unavailable Medications Combined list of outpatient [...] ORAL, [employer] 100 ea. BOTTLE Active [id number] 4 2023 90 Pharmac y Data Transac tion Service Facilit y CELECOXIB (celecoxib) , 200 MG, CAPSULE, ORAL, SOLA PHARMACEU, 500 ea. BOTTLE Active [id number] 4 2023 90 Pharmac y Data Transac tion Service Facilit y CELECOXIB (celecoxib) , 200 MG, CAPSULE, ORAL, [employer]ACE[employer], 500 ea. BOTTLE Active [id number] 4 2023 90 Pharmac y Data Transac tion Service Facilit y LISINOPRIL (lisinopril ), 2.5 MG, TABLET, ORAL, EXELAN PHARMACE, 500 ea. BOTTLE Active [id number] 4 2023 90 Pharmac y Data Transac tion Service Facilit y LISINOPRIL (lisinopril ), 2.5 MG, TABLET, ORAL, EXELAN PHARMACE, 500 ea. BOTTLE Active [id number] 4 2023 90 Pharmac y Data Transac tion Service Facilit y LISINOPRIL (LISINOPRIL ), 2.5MG, TABLET, ORAL, LUPIN PHARMACEU, 500 ea. BOTTLE Active [id number] 4 2023 90 Pharmac y Data Transac tion Service Facilit y OMEPRAZOLE (omeprazole ), 20 MG, CAPSULE DR, ORAL, [employer], 1000 ea. BOTTLE Active [id number] 4 2023 90 Pharmac y Data Transac tion Service Facilit y OMEPRAZOLE (omeprazole ), 20 MG, CAPSULE DR, ORAL, [employer], [employer], 1000 ea. BOTTLE Active [id number] 4 2023 90 Pharmac y Data Transac tion Service Facilit y PRIMIDONE (PRIMIDONE) , 50 MG, TABLET, ORAL, AV FAZAL, 500 ea. BOTTLE Cancele d [id number] : 2023 0 Pharmac y Data Transac tion Service Facilit y PRIMIDONE (primidone) , 50 MG, TABLET, ORAL, [employer], 500 ea. BOTTLE Cancele d [id number] 4 [id number] : 2023 0 Pharmac y Data Transac tion Service Facilit y PRIMIDONE (PRIMIDONE) , 50MG, TABLET, ORAL, [employer], 100 ea. BOTTLE Active [id number] 4 2023 270 Pharmac y Data Transac tion Service Facilit y PROPRANOLOL HCL ER (propranolo l HCl), 60 MG, CAP SA 24H, ORAL, [employer], 100 ea. BOTTLE Active [id number] 4 2023 90 Pharmac y Data Transac tion Service Facilit y PROPRANOLOL HCL ER (propranolo l HCl), 60 MG, CAP SA 24H, ORAL, [employer], 100 ea. BOTTLE Active [id number] 4 2023 90 Pharmac y Data Transac tion Service Facilit y PROPRANOLOL HCL ER (propranolo l HCl), 60 MG, CAP SA 24H, ORAL, [employer], 100 ea. BOTTLE Active [id number] 4 2023 90 Pharmac y Data Transac tion Service Facilit y Immunizations Combined list of available immunizations from the Department of Defense and Veterans Affairs facilities. Immunization Series Date Given Administered By Site Reaction Lot Number CVX Code Drug Admissions Supervisor Status Comments Source COVID-19, mRNA, LNP-S, PF, 30 mcg/0.3 mL dose, susana-sucrose 2021 RAM[employer]REZ [employer] (PFR) Not Given COVID-19, mRNA, LNP-S, PF, 30 mcg/0.3 mL dose, susana-sucr ose DoD COVID-19, mRNA, LNP-S, PF, 30 mcg/0.3 mL dose 2020 MIRNA, [employer] (PFR) Not Given COVID-19, mRNA, LNP-S, [...]
--- OUTSIDE RECORDS SUMMARY | 2024-09-24 17:07 | XMS_ITS ---
Author Organization [facility] Address [address] [place] [address] Care Team Providers Care County Sheriff Name Role Phone Heather CONNORS, Magy Todd Primary Care Provider Un available Bruce Dorsey Unavailable [phone] Encounters Encounter Location Date Provider Diagnosis [address] [address] 07/31/2024 Bruce Dorsey Plan Of Treatment No Information Progress Notes * JACOBS, Jocelyn CONNORSOB: [birth year]37 (88 yo F)Acc No.[id number]:07/31/2024 Progress Note Patient:Jocelyn FORD Provider:?Bruce Dorsey DPM :1935???Age:88 Y???Sex:Female D ate:07/31/2024 Address:[address] [place] [address] [address], [id number] Pcp:Louie Anderson Subjective: * Chief Complaints: * [...]
--- OUTSIDE RECORDS SUMMARY | 2024-09-24 17:07 | XMS_ITS | Patient Health Record ---
Author Organization [facility] Address [address] [place] [address] Care Team Providers Care Store Planner Name Role Phone Heather CONNORS, Magy Todd Primary Care Provider Un available Bruce Dorsey Unavailable [phone] Allergies Allergen (clinical drug ingredient) Drug/Non Drug [...] Problem Status W/U Status Risk Notes Problem [id number] Age-related osteoporosis without current pathological fracture (M81.0) Active confirmed Problem [id number] Atherosclerosis of [place] artery of both lower extremities, with unspecified presence of clinical manifestation (I70.203) Active confirmed Vital Signs Blood pressure diastolic 70 mm Hg 05/05/2024 Height 5 ft 4 in in 05/05/2024 Blood pressure systolic 120 mm Hg 05/05/2024 Weight 135 lbs 05/05/2024 BMI 23.17 kg/m2 05/05/2024 Procedures Procedure Date Ordered Date Performed Result Body Sit e 67004-VRORARI NAIL, 6 OR MORE 12/03/2023 N/A 62419-Jykaogpn Plate 12/03/2023 N/A 88787-GDKP SKIN LESIONS, OVER 4 12/03/2023 N/A 80849-ISVOSXN NAIL, 6 OR MORE 02/25/2024 N/A 39585-Ufpwncbt Plate 02/25/2024 N/A 35964-SADG SKIN LESIONS, OVER 4 02/25/2024 N/A 85152-RKPRVSV NAIL, 6 OR MORE 05/05/2024 N/A 89633-SCSF SKIN LESIONS, OVER 4 05/05/2024 N/A Encounters Encounter Location Date Provider Diagnosis [facility] [address] [place] [address] 12/03/2023 Bruce Dorsey Atherosclerosis of [place] artery of both lower extremities, with unspecified presence of clinical manifestation I70.203 ; Tinea unguium B35.1 ; Pain in right toe(s) M79.674 ; Pain in left toe(s) M79.675 and Ingrown nail L60.[address] [address] 02/25/2024 Bruce Dorsey Atherosclerosis of [place] artery of both lower extremities, with unspecified presence of clinical manifestation I70.203 ; Tinea unguium B35.1 ; Pain in right toe(s) M79.674 ; Pain in left toe(s) M79.675 and Ingrown nail L60.[address] [address] 05/05/2024 Bruce Dorsey Atherosclerosis of [place] artery of both lower extremities, with unspecified presence of clinical manifestation I70.203 ; Tinea unguium B35.1 ; Pain in right toe(s) M79.674 and Pain in left toe(s) M79.[address] [address] 05/05/2024 Bruce Dorsey [address] [address] 07/29/2024 Bruce Sunita [address] [address] 08/11/2024 Bruce Dorsey Assessments Encounter Date Diagnosis (ICD Code) Assessment Notes Treatment Notes Treatment Clinical Notes Section Notes 12/03/2023 Tinea unguium (ICD-10 - B35.1) 12/03/2023 Atherosclerosis of [place] artery of both lower extremities, with unspecified presence of clinical manifestation (ICD-10 - I70.203) 02/25/2024 Tinea unguium (ICD-10 - B35.1) 02/25/2024 Atherosclerosis of [place] artery of both lower extremities, with unspecified presence of clinical manifestation (ICD-10 - I70.203) 05/05/2024 Tinea unguium (ICD-10 - B35.1) 05/05/2024 Atherosclerosis of [place] artery of both lower extremities, with unspecified [...] X ray : Foot, right 3V 12/28/2022 77866-TQVRZAG NAIL, 6 OR MORE 02/05/2023 52213-XUADVCP NAIL, 6 OR MORE 11/13/2022 45616-XKIULDH NAIL, 6 OR MORE 04/16/2023 01842-ZEVYSGT NAIL, 6 OR MORE 07/02/2023 73930-UVLTJHA NAIL, 6 OR MORE 09/20/2023 09506-EHLDVCQ NAIL, 6 OR MORE 12/03/2023 74090-OZJQFHG NAIL, 6 OR MORE 02/25/2024 17897-BVSWMTN NAIL, 6 OR MORE 05/05/2024 36996-YBFHELL NAIL, 6 OR MORE 10/16/2011 34590-KNGOCFQ NAIL, 6 OR MORE 01/15/2012 34886-YTYVBEL NAIL, 6 OR MORE 04/22/2012 75251-ZJHFFCF NAIL, 6 OR MORE 07/22/2012 29583-RGLBAJU NAIL, 6 OR MORE 10/07/2012 62224-RPUQEUS NAIL, 6 OR MORE 12/30/2012 85971-AQEBSJU NAIL, 6 OR MORE 03/31/2013 12421-BJMXKFI NAIL, 6 OR MORE 06/30/2013 35894-PPZYRGE NAIL, 6 OR MORE 10/06/2013 30310-NHXEZXZ NAIL, 6 OR MORE 01/05/2014 04799-IWZZZIR NAIL, 6 OR MORE 07/06/2014 78612-BYFHIXJ NAIL, 6 OR MORE 10/26/2014 49034-WULSALL NAIL, 6 OR MORE 01/04/2015 51349-KDSHZVQ NAIL, 6 OR MORE 04/05/2015 34975-EIWWMEO NAIL, 6 OR MORE 06/14/2015 85358-ESQFGLU NAIL, 6 OR MORE 04/02/2014 08664-SEQKUPM NAIL, 6 OR MORE 09/06/2015 47983-REUREEX NAIL, 6 OR MORE 12/02/2015 03873-HOIPKOA NAIL, 6 OR MORE 02/10/2016 13286-GMWWBFC NAIL, 6 OR MORE 04/13/2016 22096-OMVJGME NAIL, 6 OR MORE 06/22/2016 92018-NCDRFMB NAIL, 6 OR MORE 09/04/2016 17513-KOPBBPN NAIL, 6 OR MORE 11/16/2016 21169-REEBLJG NAIL, 6 OR MORE 01/29/2017 93062-PQDRHPE NAIL, 6 OR MORE 04/12/2017 85193-NSQHBHX NAIL, 6 OR MORE 06/25/2017 21598-IKAMBPP NAIL, 6 OR MORE 09/03/2017 39579-AZHOCNF NAIL, 6 OR MORE 11/08/2017 26132-NYQRHXR NAIL, 6 OR MORE 01/10/2018 30216-QSIHFCE NAIL, 6 OR MORE 03/25/2018 14613-UZWLIYL NAIL, 6 OR MORE 05/27/2018 67734-GCVIRBK NAIL, 6 OR MORE 09/09/2018 97905-ESYUGMJ NAIL, 6 OR MORE 12/05/2018 61731-FWBSLSN NAIL, 6 OR MORE 02/24/2019 84186-CUUAWXR NAIL, 6 OR MORE 05/29/2019 90399-ERRIKAT NAIL, 6 OR MORE 08/04/2019 20349-HILJTUV NAIL, 6 OR MORE 11/10/2019 46591-SDAADFK NAIL, 6 OR MORE 02/02/2020 03867-EQIZFZY NAIL, 6 OR MORE 04/12/2020 01861-FGGAQLP NAIL, 6 OR MORE 06/24/2020 00727-OBWZSNO NAIL, 6 OR MORE 09/13/2020 03286-AQHEKPG NAIL, 6 OR MORE 12/20/2020 37238-DWGXLWZ NAIL, 6 OR MORE 02/28/2021 18917-QUYKTGL NAIL, 6 OR MORE 05/16/2021 75528-EJEWATL NAIL, 6 OR MORE 09/15/2021 77422-ASTDYPB NAIL, OR MORE 11/17/2021 03172-MGWJIIC NAIL, OR MORE 02/02/2022 47080-YDQDJYL NAIL, OR MORE 04/24/2022 35088-HZGEUMJ NAIL, 6 OR MORE 07/06/2022 88935-QXNUGKT NAIL, OR MORE 09/11/2022 94644-Tbcnpgkm Plate 06/01/2022 66179-Kwalrsso Plate 09/11/2022 44148-Qjioxubi Plate 04/24/2022 64562-Mgtffuzj Plate 02/02/2022 67662-Onivzayx Plate 11/17/2021 78851-Fjenbxvd Plate 09/15/2021 83252-Adypjdei Plate 05/16/2021 22444-Xdbslvar Plate 02/28/2021 86399-Mkhqwypf Plate 12/20/2020 30001-Yxcqcidt Plate 09/13/2020 83239-Ziavwyao Plate 06/24/2020 20019-Hgjxutio Plate 10/07/2012 56587-Fwvidtda Plate 04/12/2020 84271-Bpfrvjzb Plate 02/02/2020 06112-Eiycjgha Plate 11/10/2019 33523-Ivxtuluu Plate 12/05/2018 91881-Ugsuyozj Plate 09/09/2018 60408-Ditirgzc Plate 05/27/2018 45500-Pyqrzhtu Plate 01/10/2018 45847-Vjtdebmc Plate 04/12/2017 15361-Ibqkgphg Plate 09/04/2016 54171-Uthmytxy Plate 09/06/2015 30005-Wxjxyqsa Plate 04/02/2014 31541-Xotokykn Plate 06/14/2015 67630-Feqkghch Plate 04/05/2015 41711-Mirruufl Plate 01/04/2015 48713-Arwagumz Plate 10/26/2014 42329-Pwrrpnrr Plate 07/06/2014 96969-Djqlombb Plate 06/30/2013 94817-Rtebbdkk Plate 01/15/2012 75741-Nbdvauip Plate 02/25/2024 66066-Ekotqqrz Plate 12/03/2023 75467-Wddwgpgj Plate 07/02/2023 44748-Smmztzuk Plate 04/16/2023 69211-Cbrrarqi Plate 11/13/2022 84333-Mkjajodc Plate 02/05/2023 66381-Yutjzwhw Plate Each Additional 10/2014 05081-Anklebxg Plate Each Additional 07/2015 57033-Vtiwbmyc Plate Each Additional 06/2015 12998-Osxyoqkx Plate Each Additional 06153-Rygnbwcp Plate Each Additional 07/2019 66452-Uptsicig Plate Each Additional 53222-Hxykdcql Plate Each Additional 02859-Emsnxaww Plate Each Additional 49560-Nmqgkygf Plate Each Additional 01/2021 67703-Kuhytyzw Plate Each Additional 33745-Qyezkdgu Plate Each Additional 48325-Azainimj Plate Each Additional 14792-Urkyjjmd Plate Each Additional 05/2022 99750 I&D ABSCESS- SIMPLE,SINGLE 014 12066 I&D ABSCESS- SIMPLE,SINGLE 012 75025 I&D ABSCESS- SIMPLE,SINGLE 023 83853-ZFVR SKIN LESIONS, OVER 4 05/05/20 24 16671-NJPE SKIN LESIONS, OVER 4 02/06/20 23 10629-PYVG SKIN LESIONS, OVER 4 11/14/19 23 21455-HTAT SKIN LESIONS, OVER 4 04/16/20 23 12001-TPEM SKIN LESIONS, OVER 4 07/02/20 23 94815-JPOG SKIN LESIONS, OVER 4 09/20/19 24 69677-YSEF SKIN LESIONS, OVER 4 12/03/19 24 16192-KCWI SKIN LESIONS, OVER 4 02/25/20 24 16783-BSLG SKIN LESIONS, OVER 4 09/04/19 17 93971-ZHZI SKIN LESIONS, OVER 4 11/17/19 17 20740-IBOI SKIN LESIONS, OVER 4 01/30/20 17 10394-CHEA SKIN LESIONS, OVER 4 06/22/20 16 25889-ZPYV SKIN LESIONS, OVER 4 04/13/20 16 58222-YFAA SKIN LESIONS, OVER 4 04/12/20 17 16812-VQRY SKIN LESIONS, OVER 4 06/25/20 17 23689-YTWC SKIN LESIONS, OVER 4 11/09/19 18 33212-QPKP SKIN LESIONS, OVER 4 09/03/19 18 40733-MYBY SKIN LESIONS, OVER 4 02/03/20 22 40735-XNVS SKIN LESIONS, OVER 4 11/18/19 81732-PMAR SKIN LESIONS, OVER 4 04/24/20 85988-PUDR SKIN LESIONS, OVER 4 07/06/20 43930-DZXB SKIN LESIONS, OVER 4 09/11/19 23 24724-EPAS SKIN LESIONS, OVER 4 09/15/19 72809-HEBK SKIN LESIONS, OVER 4 05/16/20 33740-FXXV SKIN LESIONS, OVER 4 02/29/20 89027-VHHK SKIN LESIONS, OVER 4 12/21/19 90770-TIZA SKIN LESIONS, OVER 4 09/13/19 41432-VUBW SKIN LESIONS, OVER 4 06/24/20 84547-VPTY SKIN LESIONS, OVER 4 11/10/19 69039-MEGZ SKIN LESIONS, OVER 4 08/04/20 79106-XPOW SKIN LESIONS, OVER 4 02/02/20 69043-XUQG SKIN LESIONS, OVER 4 04/12/20 82750-RVZJ SKIN LESIONS, OVER 4 12/06/19 19 55480-RPGO SKIN LESIONS, OVER 4 05/29/20 19 60960-OIXS SKIN LESIONS, OVER 4 02/25/20 19 14465-VYCY SKIN LESIONS, OVER 4 01/11/20 18 71026-RRRB SKIN LESIONS, OVER 4 03/25/20 18 26537-KIKQ SKIN LESIONS, OVER 4 05/27/20 18 14936-FGBA SKIN LESIONS, OVER 4 09/09/19 19 00223-SMYG SKIN LESIONS, 2 TO 4 06/14/20 15 39058-SLBN SKIN LESIONS, 2 TO 4 04/05/20 15 74159-TTJR SKIN LESIONS, 2 TO 4 04/02/20 14 62225-GLEW SKIN LESIONS, 2 TO 4 09/06/19 16 51194-CFDC SKIN LESIONS, 2 TO 4 02/10/20 16 31174-DZZC SKIN LESIONS, 2 TO 4 12/02/19 16 42856-JCZY SKIN LESIONS, 2 TO 4 01/15/20 12 66584-CSVS SKIN LESIONS, 2 TO 4 07/22/20 12 60853-LORC SKIN LESIONS, 2 TO 4 04/22/20 12 29319-IIYJ SKIN LESIONS, 2 TO 4 06/30/20 13 07577-NCSX SKIN LESIONS, 2 TO 4 03/31/20 13 58144-SNTA SKIN LESIONS, 2 TO 4 12/31/19 13 26806-SLPF SKIN LESIONS, 2 TO 4 10/07/19 13 84781-TJCH SKIN LESIONS, 2 TO 4 07/06/20 14 14694-MSKX SKIN LESIONS, 2 TO 4 01/06/20 14 05354-GNFS SKIN LESIONS, 2 TO 4 10/06/19 14 50750-OJLT SKIN LESIONS, 2 TO 4 01/05/20 15 37110-KUMU SKIN LESIONS, 2 TO 4 10/27/19 15 Insurance Providers Payer Name Payer Address Payer Phone Subscriber Number Group Number Insured Name Patient Relationship to Insured Coverage Start Date Coverage End Date Medicare [employer] [address] [place] [address] [id number] Jocelyn Mejia Self - patient is the insured [employer] [address] [place] [address] [id number] Brandon Mejia Spouse - patient is the spouse of the insured Medical (General) History Medical History History ICD Code Arthritis back pain Cholesterol Hiatal hernia osteoporosis reflux hypertension ASO/PVD Arthritis - Degenerative Surgical History Surgery Date(Month/Year) Hospitalization History Reason Date(Month/Year) [facility] Acid reflux 09/08-09/12 [facility]- Flu 10/15
== END 2024-09-24 13:57 | disposition home or self-care (01) ==
PROVIDERS: PCP Internal Medicine; Visit Provider Surgery Vascular Surgery
DX: I83.12 Varicose veins of left lower extremity with inflammation (principal)
CPT/HCPCS: 99204

== ENCOUNTER → 2024-09-24 13:13 | Outpatient (BNVA) | payer MEDICARE, OTHER, SELFPAY | PROVIDERS: PCP Internal Medicine; Visit Provider Surgery Vascular Surgery | DX: I83.12 Varicose veins of left lower extremity with inflammation (principal); I83.812 Varicose veins of left lower extremity with pain | CPT/HCPCS: 99202 ==

== ENCOUNTER 2024-10-02 11:31 | Observation (INO) | payer MEDICARE, OTHER, SELFPAY ==
--- NOTE | ~2024-10-02 | CT_ITS ---
EXAMINATION: CT ABDOMEN PELVIS WITH IV CONTRAST HISTORY: Diarrhea, lower abdominal pain, R/O diverticulitis COMPARISON: Comparison is made with the prior examination dated 03/13/2022. TECHNIQUE: CT scan of the abdomen and pelvis was performed following administration of 85 mL Omnipaque 350 using standard departmental protocol. Coronal and sagittal reformatted images were generated and reviewed. Oral contrast material was not administered at the request of the referring physician. This CT exam was performed with one or more of the following dose reduction techniques: automated exposure control, adjustment of the mA and/or kV according to patient size, use of iterative reconstruction technique. DLP: The 93 mGy-cm FINDINGS: LOWER CHEST: There is minimal dependent atelectasis at the lung bases. There is no pleural effusion. CARDIOVASCULATURE: The heart is normal in size. There is no pericardial effusion. LIVER: The liver is normal in size and contour. Again seen are multiple cysts within the left lobe of the liver measuring up to 5.5 cm. The hepatic and portal veins are patent. GALLBLADDER / BILE DUCTS: The gallbladder is unremarkable. There is no intra or extrahepatic biliary ductal dilatation. SPLEEN: The spleen is normal in size. No focal splenic lesion is identified. PANCREAS: The pancreas is unremarkable in appearance. ADRENAL GLANDS: Within normal limits. KIDNEYS/RETROPERITONEUM: The right kidney is unremarkable. Again seen is a soft tissue mass in the interpolar region of the left kidney measuring approximately 6.0 x 3.1 x 3.5 cm without significant change. The mass causes severe hydronephrosis of the upper pole which has progressed since the prior study. There is marked cortical thinning involving the upper pole. Small cysts are noted at the upper pole and at the lower pole. LYMPH NODES: No abdominal or pelvic lymphadenopathy. VASCULATURE: The abdominal aorta demonstrates atherosclerotic calcification, but is normal in caliber. MESENTERY/PERITONEUM: There is a small amount of free fluid in the cul-de-sac. No masses. There is no free intraperitoneal gas. STOMACH: The stomach is collapsed, limiting evaluation. SMALL BOWEL: The small bowel is normal in caliber. COLON: There is diverticulosis of the sigmoid colon, without evidence of diverticulitis. APPENDIX: Normal. URINARY BLADDER/PELVIC ORGANS: There is diffuse mucosal enhancement of the urinary bladder which may represent cystitis. The uterus is unremarkable. BONES / SOFT TISSUES: There is severe scoliosis and degenerative disc disease of the spine. CT/CT abdomen pelvis w IV con IMPRESSION: 1. Sigmoid diverticulosis without evidence of diverticulitis. 2. Diffuse mucosal enhancement of the urinary bladder, suggestive of cystitis. Clinical correlation is recommended. 3. 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 The mass is unchanged in overall size since the prior study, but causes greater hydronephrosis of the upper pole of the left kidney. Electronically signed by: Brian Nagy MD 10/02/2024 02:09 PM [facility]
--- NOTE | ~2024-10-02 | XR_ITS ---
EXAMINATION: XR CHEST CLINICAL INFORMATION: Weakness, cough rule out pneumonia COMPARISON: July 27, 2021 TECHNIQUE: Frontal view of the chest was obtained. FINDINGS: Pulmonary reticular pattern. No consolidation, pleural effusion or pneumothorax. Cardiomediastinal silhouette overlaps the right hemithorax due to patient's positioning. Calcified plaque thoracic aorta. Multilevel thoracic and upper lumbar spondylosis. Degenerative changes in the shoulders. XR/XR chest 1V IMPRESSION: Chronic interstitial lung disease without on overt acute airspace disease. Electronically signed by: Williams Plascencia MD 10/02/2024 02:19 PM EST
[2024-10-02 11:45] VITALS: BP 142/66; PULSE 92; O2SAT 97; BMI 19.0
--- NOTE | 2024-10-02 12:01 | ED.WEAKNESS ---
HPI - Weakness General Chief complaint: Nausea/Vomiting/Diarrhea Stated complaint: WEAK, DIZZY, DIARRHEA, NOT TOLERATING PO PER EMS Time Seen by Provider: 10/02/24 12:00 Source: patient Mode of arrival: ambulatory Limitations: no limitations History of Present Illness ED Provider: Dr. Caden Figueroa HPI Narrative: 88-year-old female with a history hypertension, coronary artery disease, GERD, left bundle-branch block, chronic lower back pain secondary to disc disease, and spinal stenosis, who presents emergency department for evaluation of 4 days of weakness, diarrhea, nausea without vomiting, urinary frequency, myalgias. Patient states that anytime she eats she has diarrhea. She was had 3-4 watery diarrheal stools per day. She states that she was had no appetite. She has been drinking fluid and ensure. She states that today she was feeling very weak and whenever she stood up she got wobbly. She was complaining of abdominal pain and points to her lower abdomen asked to localize the pain. She was having difficulty describing the character in the severity of the pain. She denied fever but did have chills. She denied cough, chest pain, shortness of breath. Related Data Home Medications ?Medication ?Instructions ?Recorded ?Confirmed calcium carbonate (Calcium 500) 500 mg PO DAILY 05/25/20 08/31/24 denosumab 60 mg/mL subcutaneous 60 mg subcut [id number] 05/25/20 08/31/24 syringe (Prolia) acetaminophen 500 mg tablet 500 mg PO QPM PRN pain 05/17/23 08/31/24 (Tylenol Extra Strength) propranolol 60 mg capsule,24 60 mg PO DAILY 03/04/24 08/31/24 hr,extended release Previous Rx's ?Medication ?Instructions ?Recorded miscellaneous medical supply #1 ea 05/07/23 furosemide 20 mg tablet 20 mg PO QAM PRN Foot swelling #20 04/02/24 tabs cyanocobalamin (vitamin B-12) 1,000 mcg IM Q4W #3 mL 04/14/24 1,000 mcg/mL injection solution buspirone 7.5 mg tablet 7.5 mg PO .qhs #90 tabs 08/24/24 acetaminophen 300 mg-codeine 15 mg 1 tab PO DAILY PRN pain (scale 08/31/24 tablet score 7-10) #10 tabs lisinopril 2.5 mg tablet 2.5 mg PO DAILY #90 tabs 09/24/24 omeprazole 20 mg capsule,delayed 20 mg PO DAILY #90 caps 09/24/24 release primidone 50 mg tablet 100 mg (2 x 50 mg) PO BID #180 tabs 09/24/24 Allergies Allergy/AdvReac Type Severity Reaction Status Date / Time No Known Allergies Allergy Verified 10/02/24 11:46 [facility] Past Medical History [facility] Narrative: Social history: The patient states she lives alone. She denies tobacco and alcohol use. 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 Mother Arthritis Son No problems noted. Daughter No problems noted. Brother No problems noted. Social History Social History Housing: Condominium Alcohol intake: former Patient Tobacco Use Status: Never used Tobacco Tobacco use type: Cigarette Smoked in Last 30 Days: No e-Cigarette/Vaping Use: Never Used Second Hand Smoke Exposure: Yes Use of substances other than those prescribed or required for medical reasons: No Advance Directives: No Advance Directives Information Provided: Yes Do you have a plan to hurt others: No Plan Current occupational status: retired Current occupation: Retired Cognitive needs: No Hearing needs: No Vision needs: Yes Physical Exam Vital Signs: Vital Signs: Last Vital Signs Temp 98.4 F 10/02/24 12:11 Pulse 76 10/02/24 12:11 Resp 17 10/02/24 12:11 BP 126/61 10/02/24 12:11 Pulse Ox 95 10/02/24 12:11 O2 Del Method Room Air 10/02/24 12:11 BMI result Body Mass Index 19.0 Exam: General: Awake, alert in no distress Head: Normocephalic, atraumatic EENT: PERRL, Lids normal, sclera normal, conjunctiva normal, nose normal , ears normal, throat without erythema or exudates Neck: Supple, no adenopathy Lung: breath sounds symmetric, no wheezing, rales or rhonchi Chest: symmetric movement, nontender Heart: regular rate and rhythm, normal S1, S2 no murmurs or rubs Abdomen: soft, moderate suprapubic tenderness, mild to moderate right lower and left lower quadrant tenderness, normoactive bowel sounds, no rebound Back: no vertebral tenderness, no CVAT Extremities: no deformities, moves all extremities symmetrically Neuro: Awake, alert, oriented, normal speech, cranial nerves intact, moves all extremities symmetrically Psych: Pleasant, cooperative Medications Administered Discontinued Medications Generic Name Dose Route Start Last Admin Trade Name Freq PRN Reason Stop Dose Admin Sodium Chloride 1,000 mls @ 999 mls/hr 10/02/24 13:07 10/02/24 13:13 Ns IV 10/02/24 14:07 999 mls/hr .Q1H1M STA Administration Iohexol 100 ml 10/02/24 13:39 10/02/24 13:39 Iohexol 350 Mg/Ml 100 Ml Infus..Btl IV 10/02/24 13:40 85 ml ONCE ONE Administration Ketorolac Tromethamine 15 mg 10/02/24 13:07 10/02/24 13:13 Ketorolac Tromethamine 15 Mg/Ml Vial IVPUSH 10/02/24 13:08 15 mg ONCE STA Administration Ondansetron HCl 4 mg 10/02/24 13:07 10/02/24 13:13 Ondansetron Hcl 4 Mg/2 Ml Vial IVPUSH 10/02/24 13:08 4 mg ONCE ONE Administration Medical Decision Making Medical Decision Making MDM Narrative: 88-year-old female with a history hypertension, coronary artery disease, GERD, left bundle-branch block, chronic lower back pain secondary to disc disease, and spinal stenosis, who presents emergency department for evaluation of 4 days of weakness, diarrhea, nausea without vomiting, urinary frequency, myalgias. Patient states that anytime she eats she has diarrhea. She was had 3-4 watery diarrheal stools per day. She states that she was had no appetite. She has been drinking fluid and ensure. She states that today she was feeling very weak and whenever she stood up she got wobbly. She was complaining of abdominal pain and points to her lower Differential diagnosis: ?Includes but is not limited to appendicitis, diverticulitis, pancreatitis, viral syndrome, viral colitis, C diff colitis, COVID-19, influenza, RSV, anemia, electrolyte abnormalitiesabdomen asked to localize the pain. She was having difficulty describing the character in the severity of the pain. Course: 16:18 My independent interpretation patient's laboratory evaluation is as follows: Chronic microcytic anemia with an H&H of 10.4 and 31.9 with a MCV of 98.5-H&H lower than previous value of 11.7 and 36.1 on 03/09/2024. BUN was elevated at 36 with a normal creatinine of 0.86. COVID-19, influenza and RSV were negative. High sensitive troponin I was detectable but not elevated at 9.0. The patient's 12 EKG and chest x-ray were unremarkable. At this time, I believe the patient has a viral syndrome causing her symptoms. The patient was treated with Toradol 15 mg IV, Zofran 4 mg IV and normal saline x1 L. Patient was feeling better. The patient was not able to stand on the side of the bed secondary to weakness. Given this finding, I do not think patient can be discharged home needs to be admitted for IV fluid management until she can eat and drink and regained her strength. I did discuss admission with the covering hospitalist, physician account management assistant, Adriana Chun. Admission/Observation Consideration of admission/observation: Escalation of care including admission/observation considered (Yes) Consult Healthcare Provider Management of the patient was discussed with: Hospitalist Lab Data MDM Lab Attestation statement: I reviewed the patient's lab results. 10/02/24 12:37 10/02/24 12:37 Labs: Lab Results 10/02/24 10/02/24 Range/Units 12:37 13:54 WBC 6.5 (4.8-10.8) X10*3/uL RBC 3.24 L (4.20-5.50) X10*6/uL Hgb 10.4 L (12.0-16.0) g/dl Hct 31.9 L (37.0-47.0) % MCV 98.5 H (80.0-98.0) fL MCH 32.1 (27.0-33.0) pg MCHC 32.6 (31.0-35.0) g/dl RDW 13.0 (11.0-16.0) % Plt Count 197 (160-400) X10*3/uL MPV 11.1 (9.4-12.3) fL Immature Gran % (Auto) 0.8 H (0.0-0.4) % Neut % (Auto) 74.7 H (45-73) % Lymph % (Auto) 16.1 L (20-40) % [place] % (Auto) 8.0 (2-11) % Eos % (Auto) 0.2 (0-4) % Baso % (Auto) 0.2 (0-2) % Lymph # (Auto) 1.1 L (1.2-4.9) X10*3/uL [place] # (Auto) 0.5 (0.1-1.2) X10*3/uL Eos # (Auto) 0.0 (0.0-0.4) X10*3/uL Baso # (Auto) 0.0 (0.0-0.2) X10*3/uL Abs Immat Gran (auto) 0.05 H (0.00-0.03) X10*3/uL Absolute Neuts (auto) 4.9 (2.0-8.3) x10*3/uL Absolute Nucleated RBC 0.000 (0.0-0.012) X10*3/uL Nucleated RBC % (auto) 0.0 (0.0-0.2) /100WBC Sodium 136 (135-145) mmol/L Potassium 3.8 (3.3-5.1) mmol/L Chloride 102 (96-108) mmol/L Carbon Dioxide 22 (22-29) mmol/L Anion Gap 16 (12-20) BUN 36 H (9-16) mg/dL Creatinine 0.86 (0.5-1.4) mg/dL Estim Creat Clear Calc 37.7 Estimated GFR > 60 Random Glucose 85 (60-115) mg/dL Calcium 9.1 D (8.4-10.2) mg/dL Total Bilirubin 0.3 (0.0-1.0) mg/dL AST 16 (5-31) U/L ALT < 6 (0-31) U/L Alkaline Phosphatase 37 L (39-117) U/L Troponin I High Sens 9.0 (<3.5-17.0) ng/L Total Protein 6.4 L (6.5-8.0) g/dL Albumin 3.3 L (3.5-5.0) g/dL Lipase 50 (8-78) U/L Influenza Type A (PCR) NEGATIVE (Negative) Influenza Type B (PCR) NEGATIVE (Negative) RSV RNA Qual (PCR) NEGATIVE (Negative) SARS-CoV-2 RNA (RT-PCR) NEGATIVE (Negative) Independent Interpretation I performed an independent interpretation of an: Plain X-Ray Interpretation: My independent interpretation patient's x-ray is as follows: No acute disease My independent interpretation patient's 12 EKG done at 13:59 hours is as follows: Normal sinus rhythm rate of 72, normal [place] interval, prolonged QRS duration of 148 milliseconds, prolonged QTC of 477 milliseconds, left bundle-branch block, no ST segment elevation, no ST segment depression, no significant T-wave abnormalities. Compared to EKG dated 10/06/2019 done at 14:55 hours there were no significant changes on today's EKG. Left bundle-branch block is old. Radiology Impression Discussion of test interpretation with radiology: I have reviewed the radiologist's reading. Radiologist Impression: XR chest 1V IMPRESSION: Chronic interstitial lung disease without on overt acute airspace disease. Electronically signed by: Williams Plascencia MD 10/02/2024 02:[address] abdomen pelvis w IV con IMPRESSION: 1. Sigmoid diverticulosis without evidence of diverticulitis. 2. Diffuse mucosal enhancement of the urinary bladder, suggestive of cystitis. Clinical correlation is recommended. 3. 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 The mass is unchanged in overall size since the prior study, but causes greater hydronephrosis of the upper pole of the left kidney. Electronically signed by: Brian Nagy MD 10/02/2024 02:09 PM Chronic Conditions Patient?s care impacted by: Hypertension Discharge Plan Discharge Clinical Impression: Viral syndrome, Nausea, Diarrhea, Fluid volume depletion, Weakness Patient Disposition: Admitted As Inpatient Prescriptions: No Action (DME) miscellaneous medical supply Misc See Rx Instructions .Route Qty: 1 0RF Rx Instructions: Elevated toilet seat with handles furosemide 20 mg tablet 20 mg PO QAM PRN (Reason: Foot swelling) Qty: 20 0RF cyanocobalamin (vitamin B-12) 1,000 mcg/mL solution 1,000 mcg IM Q4W Qty: 3 1RF buspirone 7.5 mg tablet 7.5 mg PO .qhs Qty: 90 1RF lisinopril 2.5 mg tablet 2.5 mg PO DAILY Qty: 90 3RF omeprazole 20 mg capsule,delayed release(DR/EC) 20 mg PO DAILY Qty: 90 3RF primidone 50 mg tablet 100 mg PO BID Qty: 180 3RF acetaminophen [Tylenol Extra Strength] 500 mg tablet 500 mg PO QPM PRN (Reason: pain) propranolol 60 mg capsule,extended release 24 hr 60 mg PO DAILY Prolia 60 mg/mL syringe 60 mg subcut [id number] calcium carbonate [Calcium 500] 500 mg calcium (1,250 mg) tablet 500 mg PO DAILY acetaminophen-codeine 300-15 mg tablet 1 tab PO DAILY PRN (Reason: pain (scale score 7-10)) Qty: 10 0RF Print Language: Frisian
[2024-10-02 12:11] VITALS: BP 126/61; PULSE 76; RESP 17; TEMP 36.9; O2SAT 95
[2024-10-02 12:47] LABS: MANUAL DIFF FLAG NO
[2024-10-02 12:49] LABS: Basophils Percent Auto 0.2 % (0-2); Eosinophils Percent Auto 0.2 % (0-4); Hematocrit 31.9 % (37.0-47.0); Hemoglobin 10.4 g/dl (12.0-16.0); Imm Gran Abs Auto 0.05 X10*3/uL (0.00-0.03); Imm Gran Pct Auto 0.8 % (0.0-0.4); Lymphocytes Absolute Auto 1.1 X10*3/uL (1.2-4.9); Lymphocytes Percent Auto 16.1 % (20-40); Mean Corpuscular HGB Conc 32.6 g/dl (31.0-35.0); Mean Corpuscular Hemoglobin 32.1 pg (27.0-33.0); Mean Corpuscular Volume 98.5 fL (80.0-98.0); Mean Platelet Volume 11.1 fL (9.4-12.3); Monocytes Absolute Auto 0.5 X10*3/uL (0.1-1.2); Neutrophils Absolute Auto 4.9 x10*3/uL (2.0-8.3); Neutrophils Percent Auto 74.7 % (45-73); Platelet Count 197 X10*3/uL (160-400); Red Blood Count 3.24 X10*6/uL (4.20-5.50); White Blood Count 6.5 X10*3/uL (4.8-10.8)
--- OUTSIDE RECORDS SUMMARY | 2024-10-02 12:49 | XMS_ITS | Patient Health Record ---
Author Organization [facility] Address [address] [place] [address] Care Team Providers Care Chief Executive Officer Name Role Phone Heather CONNORS, Magy Primary Care Provider Brian Tam Unavailable [phone] SALOMÓN CHAMPION Unavailable Unavailable ALLERGIES Allergen (clinical [...] Notes Problem Erosive esophagitis (K22.10) Active confirmed 62904062 Problem Gastroesophageal reflux disease with esophagitis (K21.0) Active confirmed 062678710 Problem Constipation, unspecified constipation type (K59.00) Active confirmed 87864486 Problem Lower abdominal pain (R10.30) Active confirmed 79241857 Problem Esophagitis (K20.9) Active confirmed 16 858300 Problem Cough (R05) Active confirmed 04200971 PLAN OF TREATMENT Pending Test Test Name Order Date XR CHEST 2 VIEW PA & LAT 04/25/2021 Future Test Test Name Order Date UPPER GI ENDOSCOPY 11/13/2016 Insurance Providers Payer Name Payer Address Payer Phone Subscriber Number Group Number Insured Name Patient Relationship to Insured Coverage Start Date Coverage End Date MEDICARE OF [place] [address] [place] [address] [phone] [id number] HITESH JACOBS Self - patient is the insured [employer] [address] [place] [address] [phone] [id number] ARLENE HITESH Self - patient is the [...] Tremors Elevated cholesterol Degenerative joint disease Denies SC,DM,CVA,Lung disease,renal dise ase Surgical History Surgery Date(Month/Year) Cataracts/lens implants 10/2006
--- NOTE | 2024-10-02 12:50 | ECG_ITS ---
Test Reason : weakness Blood Pressure : */* mmHG Vent. Rate : 72 BPM Atrial Rate : 72 BPM P-R Int : 192 ms QRS Dur : 148 ms QT Int : 436 ms P-R-T Axes : 37 -43 82 degrees QTcB Int : 477 ms Normal sinus rhythm Left axis deviation Left bundle branch block Abnormal ECG When compared with ECG of 06-Oct-2019 14:55, No significant change was found Referred By: Caden Figueroa Electronically Signed By: Darin Perla
--- OUTSIDE RECORDS SUMMARY | 2024-10-02 12:50 | XMS_ITS ---
Author Organization [facility] Address [address] [place] [address] Care Team Providers Care Cyber Threat Analyst Name Role Phone Heather CONNORS, Magy Todd Primary Care Provider Un available Bruce Dorsey Unavailable [phone] Encounters Encounter Location Date Provider Diagnosis [address] [address] 07/31/2024 Bruce Dorsey Plan Of Treatment No Information Progress Notes * JACOBS, Jocelyn CONNORSOB: [birth year] (88 yo F)Acc No.[id number]:07/31/2024 Progress Note Patient:Jocelyn FORD Provider:?Bruce Dorsey DPM :1935???Age:88 Y???Sex:Female D ate:07/31/2024 Address:[address] [place] [address] [address], [id number] Pcp:Louie Anderson Subjective: * Chief Complaints: * ??? * Medical History:? Objective: * Vitals:? Assessment: Plan: * Treatment: * Images: * The named appointment provid er may or may not be the originator of this progress note, and it is not deemed complete until electronically signed by the appointment provider. Sign off status: Pending * Provider:?Bruce Dorsey DPM Date:?2023 Generated for Ronaki gerhard/Kinjal/eTransmitting on:?10/02/2024 12:50 PM EST
--- OUTSIDE RECORDS SUMMARY | 2024-10-02 12:50 | XMS_ITS | Continuity of Care Document ---
Author Name [facility] Organization [facility] Care Team Providers Care Polygraph Operator Name Role Phone [facility] Unavailable Unavailable Medications Combined list of outpatient [...] ORAL, [employer] 100 ea. BOTTLE Active [id number] 4 2023 90 Pharmac y Data Transac tion Service Facilit y CELECOXIB (celecoxib) , 200 MG, CAPSULE, ORAL, [employer], 500 ea. BOTTLE Active [id number] 4 2023 90 Pharmac y Data Transac tion Service Facilit y CELECOXIB (celecoxib) , 200 MG, CAPSULE, ORAL, [employer], 500 ea. BOTTLE Active [id number] 4 2023 90 Pharmac y Data Transac tion Service Facilit y LISINOPRIL (lisinopril ), 2.5 MG, TABLET, ORAL, EXELAN PHARMACE, 500 ea. BOTTLE Active [id number] 2023 90 Pharmac y Data Transac tion Service Facilit y LISINOPRIL (lisinopril ), 2.5 MG, TABLET, ORAL, EXELAN PHARMACE, 500 ea. BOTTLE Active [id number] 4 2023 90 Pharmac y Data Transac tion Service Facilit y LISINOPRIL (LISINOPRIL ), 2.5MG, TABLET, ORAL, LUPIN PHARMACEU, 500 ea. BOTTLE Active [id number] 4 2023 90 Pharmac y Data Transac tion Service Facilit y OMEPRAZOLE (omeprazole ), 20 MG, CAPSULE DR, ORAL, [employer], 1000 ea. BOTTLE Active [id number] 4 2023 90 Pharmac y Data Transac tion Service Facilit y OMEPRAZOLE (omeprazole ), 20 MG, CAPSULE DR, ORAL, [employer], BLOVES, 1000 ea. BOTTLE Active [id number] 4 2023 90 Pharmac y Data Transac tion Service Facilit y PRIMIDONE (PRIMIDONE) , 50 MG, TABLET, ORAL, AV FAZAL, 500 ea. BOTTLE Cancele d [id number] 4 [id number] : 2023 0 Pharmac y Data Transac tion Service Facilit y PRIMIDONE (primidone) , 50 MG, TABLET, ORAL, [employer]ARM, 500 ea. BOTTLE Cancele d [id number] 4 [id number] : 2023 0 Pharmac y Data Transac tion Service Facilit y PRIMIDONE (PRIMIDONE) , 50MG, TABLET, ORAL, [employer], 100 ea. BOTTLE Active [id number] 4 2023 270 Pharmac y Data Transac tion Service Facilit y PROPRANOLOL HCL ER (propranolo l HCl), 60 MG, CAP SA 24H, ORAL, [employer], 100 ea. BOTTLE Active [id number] 4 2023 90 Pharmac y Data Transac tion Service Facilit y PROPRANOLOL HCL ER (propranolo l HCl), 60 MG, CAP SA 24H, ORAL, [employer], 100 ea. BOTTLE Active [id number] 4 2023 90 Pharmac y Data Transac tion Service Facilit y PROPRANOLOL HCL ER (propranolo l HCl), 60 MG, CAP SA 24H, ORAL, [employer], 100 ea. BOTTLE Active [id number] 4 2023 90 Pharmac y Data Transac tion Service Facilit y Immunizations Combined list of available immunizations from the Department of Defense and Veterans Affairs facilities. Immunization Series Date Given Administered By Site Reaction Lot Number CVX Code Drug Pediatric Genetic Counselor Status Comments Source COVID-19, mRNA, LNP-S, PF, 30 mcg/0.3 mL dose, susana-sucrose 2021 RAMÍREZ [employer] [place] (PFR) Not Given COVID-19, mRNA, LNP-S, PF, 30 mcg/0.3 mL dose, susana-sucr ose DoD COVID-19, mRNA, LNP-S, PF, 30 mcg/0.3 mL dose 2020 MIRNA, [employer] [place] (PFR) Not Given COVID-19, mRNA, LNP-S, [...]
--- OUTSIDE RECORDS SUMMARY | 2024-10-02 12:50 | XMS_ITS ---
Author Organization [facility] Address [address] [place] [address] Care Team Providers Care Bi Developer Name Role Phone Heather CONNORS, Magy Todd Primary Care Provider Un available Bruce Dorsey Unavailable [phone] Encounters Encounter Location Date Provider Diagnosis [address] [address] 08/11/2024 Bruce Dorsey Plan Of Treatment No Information Progress Notes * JACOBS, Jocelyn CONNORSOB: [birth year] (88 yo F)Acc No.[id number]:08/11/2024 Progress Note Patient:Jocelyn FORD Provider:?Bruce Dorsey DPM :1935???Age:88 Y???Sex:Female D ate:08/11/2024 Address:[address] [place] [address] [address], [id number] Pcp:Louie Anderson Subjective: * Chief Complaints: * [...] DPM Date:?2023 Generated for Ronaki gerhard/Kinjal/eTransmitting on:?10/02/2024 12:49 PM EST
--- OUTSIDE RECORDS SUMMARY | 2024-10-02 12:50 | XMS_ITS ---
Author Organization [facility] Address [address] [place] [address] Care Team Providers Care Technical Support Manager Name Role Phone Heather CONNORS, Magy Todd Primary Care Provider Un available Bruce Dorsey Unavailable [phone] REASON FOR VISIT no show Encounters Encounter Location Date Provider Diagnosis [address] [address] 08/11/2024 Bruce Dorsey Plan Of Treatment No Information Progress Notes * Jocelyn JACOBS MDOB: [birth year] (88 yo F)Acc No.[id number]:08/11/2024 Patient:?ARLENE Jocelyn Palma :1935???Age:88 Y???Sex:Female Address:[address] [place] [address] [address], [place], [address] * true * Date:? Generated for Ronaki gerhard/Kinjal/eTransmitting on:?10/02/2024 12:50 PM EST
--- OUTSIDE RECORDS SUMMARY | 2024-10-02 12:50 | XMS_ITS | Patient Health Record ---
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, with unspecified presence of clinical manifestation (I70.203) Active confirmed Vital Signs Blood pressure diastolic 70 mm Hg 05/05/2024 Height 5 ft 4 in in 05/05/2024 Blood pressure systolic 120 mm Hg 05/05/2024 Weight 135 lbs 05/05/2024 BMI 23.17 kg/m2 05/05/2024 Procedures Procedure Date Ordered Date Performed Result Body Sit e 82322-IPDYLQK NAIL, 6 OR MORE 12/03/2023 N/A 99117-Cvtnlvui Plate 12/03/2023 N/A 54141-MLWR SKIN LESIONS, OVER 4 12/03/2023 N/A 52849-ZESNUCR NAIL, 6 OR MORE 02/25/2024 N/A 75736-Apcnjviz Plate 02/25/2024 N/A 17585-SLHL SKIN LESIONS, OVER 4 02/25/2024 N/A 45731-JSWNHQD NAIL, 6 OR MORE 05/05/2024 N/A 16602-YMJD SKIN LESIONS, OVER 4 05/05/2024 N/A Encounters Encounter Location Date Provider Diagnosis [facility] [address] [place] [address] 12/03/2023 Bruce Dorsey Atherosclerosis of wilton artery of both lower extremities, with unspecified presence of clinical manifestation I70.203 ; Tinea unguium B35.1 ; Pain in right toe(s) M79.674 ; Pain in left toe(s) M79.675 and Ingrown nail L60.[address] [address] 02/25/2024 Bruce Dorsey Atherosclerosis of wilton artery of both lower extremities, with unspecified presence of clinical manifestation I70.203 ; Tinea unguium B35.1 ; Pain in right toe(s) M79.674 ; Pain in left toe(s) M79.675 and Ingrown nail L60.[address] [address] 05/05/2024 Bruce Dorsey Atherosclerosis of wilton artery of both lower extremities, with unspecified presence of clinical manifestation I70.203 ; Tinea unguium B35.1 ; Pain in right toe(s) M79.674 and Pain in left toe(s) M79.[address] [address] 05/05/2024 Bruce Dorsey [address] [address] 07/29/2024 Bruce Sunita [address] [address] 08/11/2024 Bruce Dorsey Assessments Encounter Date Diagnosis (ICD Code) Assessment Notes Treatment Notes Treatment Clinical Notes Section Notes 12/03/2023 Tinea unguium (ICD-10 - B35.1) 12/03/2023 Atherosclerosis of wilton artery of both lower extremities, with unspecified presence of clinical manifestation (ICD-10 - I70.203) 02/25/2024 Tinea unguium (ICD-10 - B35.1) 02/25/2024 Atherosclerosis of [place] artery of both lower extremities, with unspecified presence of clinical manifestation (ICD-10 - I70.203) 05/05/2024 Tinea unguium (ICD-10 - B35.1) 05/05/2024 Atherosclerosis of wilton artery of both lower extremities, with unspecified [...] X ray : Foot, right 3V 12/28/2022 88730-JEDSHQN NAIL, 6 OR MORE 02/05/2023 66464-KTVKEZV NAIL, 6 OR MORE 11/13/2022 36330-KCRRDIV NAIL, 6 OR MORE 04/16/2023 51801-OONKWXM NAIL, 6 OR MORE 07/02/2023 21604-UHTIUZK NAIL, 6 OR MORE 09/20/2023 85935-DPAROJR NAIL, 6 OR MORE 12/03/2023 42512-DOOCKOV NAIL, 6 OR MORE 02/25/2024 38665-XFZERDS NAIL, 6 OR MORE 05/05/2024 76740-LMQOHWG NAIL, 6 OR MORE 10/16/2011 82043-YWJERER NAIL, 6 OR MORE 01/15/2012 82264-OGDWQBU NAIL, 6 OR MORE 04/22/2012 67588-FJWOIVK NAIL, 6 OR MORE 07/22/2012 71237-NFGUDBF NAIL, 6 OR MORE 10/07/2012 36644-ENNXPVW NAIL, 6 OR MORE 12/30/2012 69358-XTDHZRM NAIL, 6 OR MORE 03/31/2013 38820-VFFBABN NAIL, 6 OR MORE 06/30/2013 75367-EPIVPUZ NAIL, 6 OR MORE 10/06/2013 36845-FYWEIKC NAIL, 6 OR MORE 01/05/2014 46546-MQFZFOE NAIL, 6 OR MORE 07/06/2014 12982-ULGTNBB NAIL, 6 OR MORE 10/26/2014 68696-FIAACWK NAIL, 6 OR MORE 01/04/2015 82876-IAYMKWF NAIL, 6 OR MORE 04/05/2015 94451-UHEAAFK NAIL, 6 OR MORE 06/14/2015 41097-WSWQUOS NAIL, 6 OR MORE 04/02/2014 23325-BCPWVVC NAIL, 6 OR MORE 09/06/2015 29766-VLZMGYY NAIL, 6 OR MORE 12/02/2015 92190-NQGKIYC NAIL, 6 OR MORE 02/10/2016 57569-GKJMBAP NAIL, 6 OR MORE 04/13/2016 94703-DFOKLOG NAIL, 6 OR MORE 06/22/2016 41650-XRFDGPR NAIL, 6 OR MORE 09/04/2016 88631-OXXVKKT NAIL, 6 OR MORE 11/16/2016 24283-PKLUPUL NAIL, 6 OR MORE 01/29/2017 78888-DLLISGS NAIL, 6 OR MORE 04/12/2017 96130-UQBKQJV NAIL, 6 OR MORE 06/25/2017 63457-FBCQXRK NAIL, 6 OR MORE 09/03/2017 06363-HAZYSDM NAIL, 6 OR MORE 11/08/2017 19089-XKTIRPR NAIL, 6 OR MORE 01/10/2018 65029-WIWSEFC NAIL, 6 OR MORE 03/25/2018 50148-IXHWFQR NAIL, 6 OR MORE 05/27/2018 50531-FWHGIEW NAIL, 6 OR MORE 09/09/2018 49383-AWMQFHK NAIL, 6 OR MORE 12/05/2018 53613-VNWWAJW NAIL, 6 OR MORE 02/24/2019 15718-EMBIQED NAIL, 6 OR MORE 05/29/2019 22642-YKCGXYC NAIL, 6 OR MORE 08/04/2019 19397-SLBJNBP NAIL, 6 OR MORE 11/10/2019 51700-STVUCCH NAIL, 6 OR MORE 02/02/2020 93524-ZXRJNOL NAIL, 6 OR MORE 04/12/2020 74766-RRHSFBR NAIL, 6 OR MORE 06/24/2020 26516-ZJIYFZO NAIL, 6 OR MORE 09/13/2020 54780-HLEMEHJ NAIL, 6 OR MORE 12/20/2020 80310-EUIKJGS NAIL, 6 OR MORE 02/28/2021 76525-UCQZVYU NAIL, 6 OR MORE 05/16/2021 16503-MOHTDSP NAIL, 6 OR MORE 09/15/2021 68980-IAGUOVF NAIL, OR MORE 11/17/2021 76184-WPGORFN NAIL, OR MORE 02/02/2022 26157-FMTLOTY NAIL, OR MORE 04/24/2022 23218-NYCMASH NAIL, 6 OR MORE 07/06/2022 19082-EBKTVBT NAIL, OR MORE 09/11/2022 21629-Hylagrzs Plate 06/01/2022 23932-Ggeipqwg Plate 09/11/2022 56579-Pkkjgajj Plate 04/24/2022 20086-Vfqjxlgg Plate 02/02/2022 02437-Jyhrimxj Plate 11/17/2021 62933-Yrjwrskn Plate 09/15/2021 87008-Kbsvqzsk Plate 05/16/2021 03858-Iabvfnqq Plate 02/28/2021 60126-Jmggwcva Plate 12/20/2020 30314-Qjdakphm Plate 09/13/2020 14577-Effgckzd Plate 06/24/2020 93537-Ucstuiof Plate 10/07/2012 81100-Ocqvyvxl Plate 04/12/2020 45363-Jvplabhk Plate 02/02/2020 78943-Vyxrxgoj Plate 11/10/2019 33470-Jxaemzwp Plate 12/05/2018 86542-Tbjmhvgn Plate 09/09/2018 00834-Kljrsbvv Plate 05/27/2018 35223-Bebkbdew Plate 01/10/2018 80142-Rhsmriqb Plate 04/12/2017 24903-Uiorsylc Plate 09/04/2016 90661-Wusmflss Plate 09/06/2015 55987-Mcmuiqts Plate 04/02/2014 82555-Kbuiikei Plate 06/14/2015 41014-Cksjtlqx Plate 04/05/2015 07401-Egbqsfae Plate 01/04/2015 14145-Sosknaru Plate 10/26/2014 93197-Wyvyfuoq Plate 07/06/2014 62849-Adkhifzx Plate 06/30/2013 41086-Atadkdok Plate 01/15/2012 38860-Iyxlyirx Plate 02/25/2024 21756-Uuxslcmg Plate 12/03/2023 13545-Wxmtjhyh Plate 07/02/2023 89695-Wiltvwgq Plate 04/16/2023 14318-Ryiyrrgw Plate 11/13/2022 74887-Vpikvibf Plate 02/05/2023 68764-Adbwktsj Plate Each Additional 10/2014 20458-Fbgbbqdt Plate Each Additional 07/2015 12109-Aqpaubki Plate Each Additional 06/2015 14365-Txylehmm Plate Each Additional 05528-Ecunqvse Plate Each Additional 07/2019 58092-Olqeuqsw Plate Each Additional 40630-Khrkxvej Plate Each Additional 08779-Wwvgfuvo Plate Each Additional 37822-Qxnenlia Plate Each Additional 01/2021 03099-Qoxbazwq Plate Each Additional 47339-Izjmpzrb Plate Each Additional 61015-Ugdmcuwm Plate Each Additional 14077-Dzrziwlj Plate Each Additional 05/2022 86588 I&D ABSCESS- SIMPLE,SINGLE 014 54165 I&D ABSCESS- SIMPLE,SINGLE 012 64053 I&D ABSCESS- SIMPLE,SINGLE 023 70626-IPCT SKIN LESIONS, OVER 4 05/05/20 24 66858-PXPD SKIN LESIONS, OVER 4 02/06/20 23 88787-CGPR SKIN LESIONS, OVER 4 11/14/19 23 16210-BMCG SKIN LESIONS, OVER 4 04/16/20 23 91666-DNLF SKIN LESIONS, OVER 4 07/02/20 23 83703-FRQH SKIN LESIONS, OVER 4 09/20/19 24 30778-SXNU SKIN LESIONS, OVER 4 12/03/19 24 22496-UUBQ SKIN LESIONS, OVER 4 02/25/20 24 11869-XWSC SKIN LESIONS, OVER 4 09/04/19 17 27467-UTSD SKIN LESIONS, OVER 4 11/17/19 17 07635-CLQT SKIN LESIONS, OVER 4 01/30/20 17 16415-UYRJ SKIN LESIONS, OVER 4 06/22/20 16 24050-FVBU SKIN LESIONS, OVER 4 04/13/20 16 10750-NFHW SKIN LESIONS, OVER 4 04/12/20 17 60403-WLGR SKIN LESIONS, OVER 4 06/25/20 17 75604-LFZV SKIN LESIONS, OVER 4 11/09/19 18 79340-YMXH SKIN LESIONS, OVER 4 09/03/19 18 00051-ILVR SKIN LESIONS, OVER 4 02/03/20 22 07196-PQBK SKIN LESIONS, OVER 4 11/18/19 96428-KRXL SKIN LESIONS, OVER 4 04/24/20 97648-ZEOI SKIN LESIONS, OVER 4 07/06/20 82639-HNCT SKIN LESIONS, OVER 4 09/11/19 23 68831-GTIO SKIN LESIONS, OVER 4 09/15/19 24267-XOKE SKIN LESIONS, OVER 4 05/16/20 01922-LHOF SKIN LESIONS, OVER 4 02/29/20 98820-BSHK SKIN LESIONS, OVER 4 12/21/19 31382-UPQG SKIN LESIONS, OVER 4 09/13/19 24144-KKRW SKIN LESIONS, OVER 4 06/24/20 40581-CZJP SKIN LESIONS, OVER 4 11/10/19 91529-FQLC SKIN LESIONS, OVER 4 08/04/20 03448-EONW SKIN LESIONS, OVER 4 02/02/20 24155-TSGV SKIN LESIONS, OVER 4 04/12/20 72757-NDMR SKIN LESIONS, OVER 4 12/06/19 19 64821-FSGA SKIN LESIONS, OVER 4 05/29/20 19 49779-NDTO SKIN LESIONS, OVER 4 02/25/20 19 63846-ACVP SKIN LESIONS, OVER 4 01/11/20 18 56797-BMRL SKIN LESIONS, OVER 4 03/25/20 18 13004-VSAW SKIN LESIONS, OVER 4 05/27/20 18 55415-CQUF SKIN LESIONS, OVER 4 09/09/19 19 35906-FNGS SKIN LESIONS, 2 TO 4 06/14/20 15 26501-YQHX SKIN LESIONS, 2 TO 4 04/05/20 15 44453-KWDR SKIN LESIONS, 2 TO 4 04/02/20 14 70089-TDDB SKIN LESIONS, 2 TO 4 09/06/19 16 68272-RPWK SKIN LESIONS, 2 TO 4 02/10/20 16 43394-WKZL SKIN LESIONS, 2 TO 4 12/02/19 16 45940-VBUC SKIN LESIONS, 2 TO 4 01/15/20 12 30510-EJUM SKIN LESIONS, 2 TO 4 07/22/20 12 99494-EOCN SKIN LESIONS, 2 TO 4 04/22/20 12 63528-XRVD SKIN LESIONS, 2 TO 4 06/30/20 13 68227-RXMN SKIN LESIONS, 2 TO 4 03/31/20 13 18922-NMBW SKIN LESIONS, 2 TO 4 12/31/19 13 77984-NADZ SKIN LESIONS, 2 TO 4 10/07/19 13 38839-MKWY SKIN LESIONS, 2 TO 4 07/06/20 14 77957-OXZD SKIN LESIONS, 2 TO 4 01/06/20 14 22035-SEML SKIN LESIONS, 2 TO 4 10/06/19 14 11088-KCEQ SKIN LESIONS, 2 TO 4 01/05/20 15 23180-KTLI SKIN LESIONS, 2 TO 4 10/27/19 15 Insurance Providers Payer Name Payer Address Payer Phone Subscriber Number Group Number Insured Name Patient Relationship to Insured Coverage Start Date Coverage End Date Medicare National [employer] [address] [place] [address] [id number] Jocelyn Mejia Self - patient is the insured 2 [employer] [address] [place] [address] [id number] Brandon Mejia Spouse - patient is the spouse of the insured Medical (General) History Medical History History ICD Code Arthritis back pain Cholesterol Hiatal hernia osteoporosis reflux hypertension ASO/PVD Arthritis - Degenerative Surgical History Surgery Date(Month/Year) Hospitalization History Reason Date(Month/Year) [facility] Acid reflux 09/08-09/12 [facility]- Flu 10/15
[2024-10-02 13:07] LABS: Alanine Aminotransferase < 6 U/L (0-31); Albumin Level 3.3 g/dL (3.5-5.0); Alkaline Phosphatase 37 U/L (39-117); Anion Gap 16 (12-20); Aspartate Amino Transferase 16 U/L (5-31); Bilirubin Total 0.3 mg/dL (0.0-1.0); Blood Urea Nitrogen 36 mg/dL (9-16); Calcium 9.1 mg/dL (8.4-10.2); Carbon Dioxide 22 mmol/L (22-29); Chloride 102 mmol/L (96-108); Creatinine Clr Calc Pharmacy 37.7; Estimated Glomerular Filt Rate > 60; Glucose Random 85 mg/dL (60-115); Potassium 3.8 mmol/L (3.3-5.1); Sodium 136 mmol/L (135-145); Total Protein 6.4 g/dL (6.5-8.0)
[2024-10-02] MEDS: Ketorolac Tromethamine 15 MG/ML VIAL IVPUSH (13:13)
[2024-10-02] MEDS: ondansetron HCL 4 MG/2 ML VIAL IVPUSH (13:13)
[2024-10-02] MEDS: 0.9 % Sodium Chloride 1,000 ML 999 ML IV (13:13)
[2024-10-02] MEDS: iohexoL 350 MG/ML 100 ML INFUS..BTL IV (13:39)
[2024-10-02 14:23] LABS: Lipase 50 U/L (8-78)
[2024-10-02 15:20] LABS: Influenza A PCR NEGATIVE (Negative); Influenza B PCR NEGATIVE (Negative); Resp Syncy Virus RNA Qual PCR NEGATIVE (Negative); SARS COV2 PCR INHOUSE NEGATIVE (Negative)
--- NOTE | 2024-10-02 16:26 | PC.NURSE ---
PT failed attempt to ambulate. Was able to sit at bedside but once standing felt dizzy andhad to sit. Pt has not had diarrhea since this RN took care at 3p. skin pwd. has tremor in hands. axox3. aware of plan of care.
[2024-10-02 16:56] LABS: Appearance Urine Cloudy; Color Urine Yellow; Glucose Urine UA Negative (Negative); Leukocyte Esterase Urine Small (1+) (Negative); Nitrite Urine Positive (Negative); PH >= 9.0 (5.0-9.0); Specific Gravity - Urine >= 1.030 (1.005-1.025); UMIC TRIGGER UACC YES; Urine Blood Negative (Negative); Urine Ketones 15 mg/dL (Negative); Urine Protein 100 (2+) mg/dL (Neg-Trace)
[2024-10-02 17:09] LABS: Bacteria Urine 4+ (None Seen); Hyaline Casts Urine 0-2 /LPF (0-2); Other Crystals Urine Present; RBC Urine 0-2 /HPF (0-2); Squamous Epithelial Cell Urine 0-2 /HPF (0-2); UACC Culture Trigger YES
--- NOTE | 2024-10-02 17:41 | P.HPHOSP_ITS ---
History of Present Illness Date of Service: 10/02/24 Attending physician on admission: Sophie Killian Chief Complaint: weakness, diarrhea This is an 88-year-old who presents to the emergency department with reports of weakness. She states that she has been having watery diarrhea for the past 4 days with associated abdominal pain. She has had associated nausea but no vomiting. She has not been able to tolerate any solid food although she has been able to drink some ensure and momo lauryn. She feels too weakn to stand. In the emergency department lab work was essentially unremarkable. CT scan of the abdomen and pelvis showed no acute changes. Patient denies any dysuria or urinary frequency although urinalysis consistent with possible UTI. Review of Systems 2 Review of Systems: Yes all other systems are reviewed and are negative Constitutional: Constitutional: Denies chills and Denies fever(s) Cardiovascular: Cardiovascular: Denies chest pain and Denies palpitations Gastrointestinal: Gastrointestinal: Reports abdominal pain, Reports diarrhea, Reports nausea and Denies vomiting Endocrine: Endocrine: Denies palpitations FORMERLY [facility], [facility]1983 Medical History Altered bowel habits COVID-19 Vitamin B12 deficiency Osteoarthritis, hip, bilateral Dextroscoliosis of thoracolumbar spine Facial skin lesion Generalized anxiety disorder Dyspnea on exertion Left bundle branch block Chronic right hip pain Acquired renal cyst of left kidney 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 Mother Arthritis Son No problems noted. Daughter No problems noted. Brother No problems noted. Surgical History History of intraocular lens implant Social History Housing: Condominium Alcohol intake: former Patient Tobacco Use Status: Never used Tobacco Tobacco use type: Cigarette Smoked in Last 30 Days: No e-Cigarette/Vaping Use: Never Used Second Hand Smoke Exposure: Yes Use of substances other than those prescribed or required for medical reasons: No Advance Directives: No Advance Directives Information Provided: Yes Do you have a plan to hurt others: No Plan Current occupational status: retired Current occupation: Retired Cognitive needs: No Hearing needs: No Vision needs: Yes Meds Allergies Allergy/AdvReac Type Severity Reaction Status Date / Time No Known Allergies Allergy Verified 10/02/24 11:46 Home Medications ?Medication ?Instructions ?Recorded ?Confirmed ?Last Taken ?Type calcium carbonate (Calcium 500) 500 mg PO DAILY 05/25/20 08/31/24 Unknown History denosumab 60 mg/mL subcutaneous 60 mg subcut [id number] 05/25/20 08/31/24 Unknown History syringe (Prolia) acetaminophen 500 mg tablet 500 mg PO QPM PRN pain 05/17/23 08/31/24 Unknown History (Tylenol Extra Strength) propranolol 60 mg capsule,24 60 mg PO DAILY 03/04/24 08/31/24 Unknown History hr,extended release tramadol 50 mg tablet 50 mg PO BID PRN pain 10/02/24 10/02/24 Unknown History Physical Exam 2 Vital Signs and Narrative: Vital Signs: Last Vital Signs Temp 98.4 F 10/02/24 12:11 Pulse 76 10/02/24 12:11 Resp 17 10/02/24 12:11 BP 126/61 10/02/24 12:11 Pulse Ox 95 10/02/24 12:11 O2 Del Method Room Air 10/02/24 12:11 BMI result Body Mass Index 19.0 Const: Other: frail appearing General: alert and awake Nutritional Appearance: average body habitus Orientation/consciousness: patient oriented x3 Resp: Effort & Inspection: normal respiratory effort, able to speak in complete sentences, no respiratory distress and no use of accessory muscles Cardio: Rate: regular rate GI: Inspection: No distended Palpation (GI): Soft to palpation and nontender Neuro: General: patient oriented x3, moves all extremities and CN's II-XI intact bilaterally Extrem: General: Yes no pedal edema Results Labs 10/02/24 12:37 10/02/24 12:37 Labs: Laboratory Results - last 24 hr 10/02/24 10/02/24 10/02/24 12:37 13:54 16:50 MCV 98.5 H MCH 32.1 MCHC 32.6 RDW 13.0 Plt Count 197 MPV 11.1 Immature Gran % (Auto) 0.8 H Neut % (Auto) 74.7 H Lymph % (Auto) 16.1 L [place] % (Auto) 8.0 Eos % (Auto) 0.2 Baso % (Auto) 0.2 Lymph # (Auto) 1.1 L [place] # (Auto) 0.5 Eos # (Auto) 0.0 Baso # (Auto) 0.0 Abs Immat Gran (auto) 0.05 H Absolute Neuts (auto) 4.9 Absolute Nucleated RBC 0.000 Nucleated RBC % (auto) 0.0 Anion Gap 16 Estim Creat Clear Calc 37.7 Estimated GFR > 60 Random Glucose 85 Calcium 9.1 D Total Bilirubin 0.3 AST 16 ALT < 6 Alkaline Phosphatase 37 L Troponin I High Sens 9.0 Total Protein 6.4 L Albumin 3.3 L Lipase 50 Urine Color Yellow Urine Appearance Cloudy Urine pH >= 9.0 Ur Specific [place] >= 1.030 H Urine Protein 100 (2+) H Urine Glucose (UA) Negative Urine Ketones 15 Urine Blood Negative Urine Nitrite Positive H Ur Leukocyte Esterase Small (1+) H Urine RBC 0-2 Urine WBC 6-10 Ur Squamous Epith Cells 0-2 Other Crystals Present Urine Bacteria 4+ Hyaline Casts 0-2 Influenza Type A (PCR) NEGATIVE Influenza Type B (PCR) NEGATIVE RSV RNA Qual (PCR) NEGATIVE SARS-CoV-2 RNA (RT-PCR) NEGATIVE Imaging Radiologist's Impressions: Impressions Chest X-Ray 10/02/24 12:51 IMPRESSION: Chronic interstitial lung disease without on overt acute airspace disease. Electronically signed by: Williams Plascencia MD 10/02/2024 02:19 PM EST RP Abdomen/Pelvis CT 10/02/24 13:08 IMPRESSION: 1. Sigmoid diverticulosis without evidence of diverticulitis. 2. Diffuse mucosal enhancement of the urinary bladder, suggestive of cystitis. Clinical correlation is recommended. 3. 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 The mass is unchanged in overall size since the prior study, but causes greater hydronephrosis of the upper pole of the left kidney. Electronically signed by: Brian Nagy MD 10/02/2024 02:09 PM EST RP Assessment and Plan (1) Diarrhea: Status: Acute Plan This is an 88-year-old female with history of chronic back pain, chronic left bundle branch block, tremor presents to the emergency department with 4 day history of watery diarrhea and generalized weakness found to have possible UTI Diarrhea will check cdif, GI panel ct abdomen negative for infectious source symptomatic support possible UTI will give empiric ceftriaxone follow Urine culture results Soft tissue mass of the left kidney Reported as unchanged overall since previous study, but worsening hydronephrosis follows with urology Would recommend outpatient follow-up tremor continue baseline meds med rec pending at the time of admission dvt ppx - boots dispo: tbd, may need PT eval prior to discharge Quality Stroke Does the patient have a stroke diagnosis?: No VTE Prior VTE?: No VTE Risk Level:: Medical - moderate - high VTE Device Contraindication: N/A - Device Ordered VTE Drug Contraindication: Treatment Not Indicated
--- NOTE | 2024-10-02 18:37 | PHA.MEDREC ---
Addendum entered by Vernon Shepard [facility] 10/02/24 18:44: med rec reviewed Original Note: Pharmacy Consult ? Medication Reconciliation Pharmacy has completed the medication reconciliation. Spoke with patient and she was able to confirm her medications. Patient confirmed her cyanocobalamin (vitamin B-12) 1,000 mcg/mL injection once every 4 weeks and confirmed she is due to get that next . She confirmed the denosumab 60 mg/mL subcutaneous injection once every 6 months and confirmed she is not due for that until November. She confirmed she still has the Furosemide 20mg tab at home as needed for her Foot swelling but has not had to use it in a while she said. She confirmed she took her morning medications this morning.
[2024-10-02] MEDS: cefTRIAXone sodium 1 GM VIAL IVPUSH (18:45)
[2024-10-02 19:06] VITALS: BP 157/80; PULSE 77; RESP 18; TEMP 36.8; O2SAT 98
[2024-10-02 20:47] VITALS: BMI 19.1
[2024-10-02 20:58] VITALS: BP 150/70; PULSE 79; RESP 18; TEMP 36.9; O2SAT 94
[2024-10-02] MEDS: 0.9 % Sodium Chloride Flush 3 ML SYRINGE IVFLUSH (21:04)
[2024-10-02] MEDS: Acetaminophen 325 MG TABLET 650 MG PO (21:44)
[2024-10-02] MEDS: Melatonin 3 MG TABLET 6 MG PO (21:47)
[2024-10-03 04:44] VITALS: BP 120/56; PULSE 79; RESP 16; TEMP 36.4; O2SAT 99
[2024-10-03 07:38] VITALS: BP 119/56; PULSE 80; RESP 16; TEMP 37.4; O2SAT 95
[2024-10-03] MEDS: Acetaminophen 325 MG TABLET 650 MG PO ×2 (09:28→20:14)
[2024-10-03] MEDS: 0.9 % Sodium Chloride Flush 3 ML SYRINGE IVFLUSH ×3 (09:30→21:31)
[2024-10-03] MEDS: Omeprazole 20 MG CAPSULE.DR PO (09:51)
[2024-10-03] MEDS: Propranolol HCL LA 60 MG CAP.SA.24H PO (09:51)
[2024-10-03] MEDS: Primidone 50 MG TABLET 100 MG PO ×2 (09:52→20:14)
--- NOTE | 2024-10-03 10:02 | HO.PM.IMPN ---
Subjective Subjective Date of Service: 10/03/24 Interval History: seen and examined this morning follow up for uti, diarrhea, weakness still feeling weak, having urinary frequency no further diarrhea, no abdominal pain Review of Systems Review of Systems: Yes all other systems are reviewed and are negative Constitutional Constitutional: Denies chills and Denies fever(s) Cardiovascular Cardiovascular: Denies chest pain, Denies palpitations and Denies dyspnea Respiratory Respiratory: Denies cough and Denies dyspnea Gastrointestinal Gastrointestinal: Denies abdominal pain, Denies nausea and Denies vomiting Endocrine Endocrine: Denies palpitations Physical Exam Vital Signs: Vital Signs: Last Vital Signs Temp 99.3 F 10/03/24 07:38 Pulse 80 10/03/24 07:38 Resp 16 10/03/24 07:38 BP 119/56 L 10/03/24 07:38 Pulse Ox 95 10/03/24 07:38 O2 Del Method Room Air 10/03/24 07:38 BMI result Body Mass Index 19.1 Const: Other: frail appearing General: alert and awake Nutritional Appearance: average body habitus Orientation/consciousness: patient oriented x3 Resp: Effort & Inspection: normal respiratory effort, able to speak in complete sentences, no respiratory distress and no use of accessory muscles Cardio: Rate: regular rate GI: Inspection: No distended Palpation (GI): Soft to palpation and nontender Neuro: General: patient oriented x3, moves all extremities and CN's II-XI intact bilaterally Extrem: General: Yes no pedal edema Objective Data Active Medications Acetaminophen (Acetaminophen 325 Mg Tablet) 650 mg PO Q6H PRN PRN Reason: Pain, Mild 1-3,fever,headache Last Admin: 10/03/24 09:28 Dose: 650 mg Documented By: URMILA Buspirone HCl (Buspirone Hcl 5 Mg Tablet) 7.5 mg PO BEDTIME DAWNA Calcium Carbonate (Calcium Carbonate 750 Mg Tab.Chew) 750 mg PO Q4H PRN PRN Reason: Heartburn Ceftriaxone Sodium (Ceftriaxone Sodium 1 Gm Vial) 1 gm IVPUSH Q24H DAWNA Last Admin: 10/02/24 18:45 Dose: 1 gm Documented By: TOMMY Loperamide HCl (Loperamide Hcl 2 Mg Capsule) 2 mg PO Q6H PRN PRN Reason: Diarrhea Melatonin (Melatonin 3 Mg Tablet) 6 mg PO BEDTIME PRN PRN Reason: Insomnia Last Admin: 10/02/24 21:47 Dose: 6 mg Documented By: LIU Omeprazole (Omeprazole 20 Mg Capsule.Dr) 20 mg PO DAILY@0630 [facility] Last Admin: 10/03/24 09:51 Dose: 20 mg Documented By: URMILA Primidone (Primidone 50 Mg Tablet) 100 mg PO BID [facility] Last Admin: 10/03/24 09:52 Dose: 100 mg Documented By: URMILA Propranolol HCl (Propranolol Hcl La 60 Mg Cap.Sa.24h) 60 mg PO DAILY [facility]; Protocol Last Admin: 10/03/24 09:51 Dose: 60 mg Documented By: URMILA Sodium Chloride (0.9 % Sodium Chloride Flush 3 Ml Syringe) 3 ml IVFLUSH QSHIFT [facility] Last Admin: 10/03/24 09:30 Dose: 3 ml Documented By: URMILA Labs 10/02/24 12:37 10/02/24 12:37 Labs: Laboratory Results - last 24 hr 10/02/24 10/02/24 10/02/24 12:37 13:54 16:50 MCV 98.5 H MCH 32.1 MCHC 32.6 RDW 13.0 Plt Count 197 MPV 11.1 Immature Gran % (Auto) 0.8 H Neut % (Auto) 74.7 H Lymph % (Auto) 16.1 L [place] % (Auto) 8.0 Eos % (Auto) 0.2 Baso % (Auto) 0.2 Lymph # (Auto) 1.1 L [place] # (Auto) 0.5 Eos # (Auto) 0.0 Baso # (Auto) 0.0 Abs Immat Gran (auto) 0.05 H Absolute Neuts (auto) 4.9 Absolute Nucleated RBC 0.000 Nucleated RBC % (auto) 0.0 Anion Gap 16 Estim Creat Clear Calc 37.7 Estimated GFR > 60 Random Glucose 85 Calcium 9.1 D Total Bilirubin 0.3 AST 16 ALT < 6 Alkaline Phosphatase 37 L Troponin I High Sens 9.0 Total Protein 6.4 L Albumin 3.3 L Lipase 50 Urine Color Yellow Urine Appearance Cloudy Urine pH >= 9.0 Ur Specific [place] >= 1.030 H Urine Protein 100 (2+) H Urine Glucose (UA) Negative Urine Ketones 15 Urine Blood Negative Urine Nitrite Positive H Ur Leukocyte Esterase Small (1+) H Urine RBC 0-2 Urine WBC 6-10 Ur Squamous Epith Cells 0-2 Other Crystals Present Urine Bacteria 4+ Hyaline Casts 0-2 Influenza Type A (PCR) NEGATIVE Influenza Type B (PCR) NEGATIVE RSV RNA Qual (PCR) NEGATIVE SARS-CoV-2 RNA (RT-PCR) NEGATIVE Assessment and Plan (1) Diarrhea: Status: Acute Plan This is an 88-year-old female with history of chronic back pain, chronic left bundle branch block, tremor presents to the emergency department with 4 day history of watery diarrhea and generalized weakness found to have possible UTI Diarrhea cdif, GI panel uncollected as no further diarrhea thus far ct abdomen negative for infectious source symptomatic support possible UTI no sepsis continue ceftriaxone follow Urine culture results Soft tissue mass of the left kidney Reported as unchanged overall since previous study, but worsening hydronephrosis discussed with urology, recommend outpatient follow-up tremor continue primidone, propranolol dvt ppx - boots dispo: tbd, PT evaluation pending for safe disposition Quality Stroke Does the patient have a stroke diagnosis?: No VTE Prior VTE?: No VTE Risk Level:: Medical - moderate - high VTE Device Contraindication: N/A - Device Ordered VTE Drug Contraindication: Treatment Not Indicated
[2024-10-03 11:12] VITALS: BP 119/56; PULSE 80; O2SAT 95
--- NOTE | 2024-10-03 11:33 | MHC.CM.PN ---
Addendum entered by Kristi Maxwell RN 10/03/24 12:15: [facility] will provide service on dc. Original Note: [facility] delivered. Patient lives in an apartment alone. Ambulates w/ walker. Also has a cane, toilet rise and grab bars in bathroom. Has [facility] services 2x/wk for assist w/ bathing, shopping, and cleaning. PCP Magy Romero MD HCP on file and verified. HCA is granddaughter Caitlyn. DP: Home w/ services for PT. Prefers [facility], however [facility] is unable to accept. No second choice. Referrals to local agencies via [facility]. Awaiting response. May need BLS home. CM will continue to follow.
[2024-10-03 13:54] VITALS: BP 112/53; PULSE 81; RESP 16; TEMP 36.9; O2SAT 97
[2024-10-03 15:18] VITALS: BP 127/61; PULSE 76; RESP 18; TEMP 37.2; O2SAT 95
[2024-10-03] MEDS: cefTRIAXone sodium 1 GM VIAL IVPUSH (17:23)
[2024-10-03 19:06] VITALS: BP 118/57; PULSE 90; RESP 18; TEMP 37.5; O2SAT 99
[2024-10-03] MEDS: busPIRone HCl 5 MG TABLET 7.5 MG PO (20:13)
[2024-10-03] MEDS: Melatonin 3 MG TABLET 6 MG PO (20:17)
[2024-10-03] MEDS: Ketorolac Tromethamine 15 MG/ML VIAL IVPUSH (21:56)
[2024-10-04 05:16] VITALS: BP 136/64; PULSE 77; RESP 16; TEMP 36.4; O2SAT 97
[2024-10-04] MEDS: Omeprazole 20 MG CAPSULE.DR PO (05:16)
[2024-10-04 07:40] VITALS: BP 130/62; PULSE 80; RESP 16; TEMP 37.2; O2SAT 97
[2024-10-04] MEDS: Acetaminophen 325 MG TABLET 650 MG PO (08:07)
[2024-10-04] MEDS: Primidone 50 MG TABLET 100 MG PO (08:07)
[2024-10-04] MEDS: Propranolol HCL LA 60 MG CAP.SA.24H PO (08:07)
[2024-10-04] MEDS: 0.9 % Sodium Chloride Flush 3 ML SYRINGE IVFLUSH (08:08)
--- NOTE | 2024-10-04 10:13 | PM.DS ---
DS: Providers Provider Date of Service: 10/04/24 Date of admission: 10/02/24 17:32 Date of discharge: 10/04/24 Primary care physician: Magy Romero MD Attending physician on discharge: Sophie Killian Discharging clinician: Adriana Chun DS: Diagnosis Discharge Diagnosis (1) Diarrhea: Status: Acute (2) UTI (urinary tract infection): Status: Acute DS: Summary Hospital Course Hospital Course: From H&P on the day of admission his is an 88-year-old who presents to the emergency department with reports of weakness. She states that she has been having watery diarrhea for the past 4 days with associated abdominal pain. She has had associated nausea but no vomiting. She has not been able to tolerate any solid food although she has been able to drink some ensure and momo lauryn. She feels too weakn to stand. In the emergency department lab work was essentially unremarkable. CT scan of the abdomen and pelvis showed no acute changes. Patient denies any dysuria or urinary frequency although urinalysis consistent with possible UTI. Diarrhea resolved. cdif, GI panel uncollected as no further diarrhea. ct abdomen negative for infectious source UTI no sepsis. initially treated with IV ceftriaxone. Urine culture grew Proteus mirabilis sensitive to ceftriaxone. We will be discharged home to complete course of oral antibiotics. Soft tissue mass of the left kidney Reported as unchanged overall since previous study, but worsening hydronephrosis. discussed with urology, recommend outpatient follow-up Patient was evaluated by physical therapy who recommended home with PT services. Time Attestation Discharge Coordination Time (in mins): 35 Quality: Safe Use of Opioids Does Pt have an Active Cancer Diagnosis on the Problem List?: No Quality: Stroke Does the patient have a stroke diagnosis?: No Physical Exam Vital Signs: Vital Signs: Last Vital Signs Temp 99.0 F 10/04/24 07:40 Pulse 80 10/04/24 07:40 Resp 16 10/04/24 07:40 BP 130/62 10/04/24 07:40 Pulse Ox 97 10/04/24 07:40 O2 Del Method Room Air 10/04/24 07:40 BMI result Body Mass Index 19.1 Const: Other: frail appearing General: alert and awake Nutritional Appearance: average body habitus Orientation/consciousness: patient oriented x3 Resp: Effort & Inspection: normal respiratory effort, able to speak in complete sentences, no respiratory distress and no use of accessory muscles Cardio: Rate: regular rate GI: Inspection: No distended Palpation (GI): Soft to palpation and nontender Neuro: General: patient oriented x3, moves all extremities and CN's II-XI intact bilaterally Extrem: General: Yes no pedal edema Discharge Plan Discharge Patient Disposition: Home Health Service Discharge Diagnosis: UTI Referrals: [facility] [Outside] - 3-5 Days ([facility] will call you to schedule home physical therapy appointments) Magy Romero MD [Primary Care Provider] - 1 Week Discharge Medications: New cefuroxime axetil 250 mg tablet 250 mg PO Q12H 4 Days Qty: 8 0RF Continued lisinopril 2.5 mg tablet 2.5 mg PO DAILY Qty: 90 3RF omeprazole 20 mg capsule,delayed release(DR/EC) 20 mg PO DAILY Qty: 90 3RF primidone 50 mg tablet 100 mg PO BID Qty: 180 3RF cyanocobalamin (vitamin B-12) 1,000 mcg/mL solution 1,000 mcg IM Q4W Qty: 3 3RF tramadol 50 mg tablet 50 mg PO BID PRN (Reason: pain) buspirone 7.5 mg tablet 7.5 mg PO BEDTIME furosemide 20 mg tablet 20 mg PO DAILY PRN (Reason: Foot swelling) calcium carbonate 500 mg calcium (1,250 mg) Tablet 500 mg PO DAILY acetaminophen [Tylenol Extra Strength] 500 mg tablet 1,000 mg PO BID PRN (Reason: pain) propranolol 60 mg capsule,extended release 24 hr 60 mg PO DAILY Prolia 60 mg/mL syringe 60 mg subcut [id number] No Action (DME) miscellaneous medical supply Misc See Rx Instructions .Route Qty: 1 0RF Rx Instructions: Elevated toilet seat with handles Discharge Orders: Discharge Order (Routine); Ordered 10/04/24 Ordered By: Adriana Chun Activity on Discharge: As tolerated Stand Alone Forms: Patient Portal Discharge page Print Language: Estonian Care Plan Goals: see below Health Concerns: UTI diarrhea - resolved chronic anemia Plan of Treatment: Complete course of antibiotics as prescribed for urinary tract infection you will be discharged home with home physical therapy call to schedule a follow up appointment with your urologist for your known kidney mass for routine monitoring Assessment: see discharge summary
--- NOTE | 2024-10-04 10:25 | W.MHC.F2F ---
Service Date Service Date: 10/04/24 Encounter Date of encounter: 10/04/24 Reasons for Services Signs and symptoms assessed: needs home PT for weakness/gross deconditioning Reason for physical therapy: home safety and mobility and therapeutic exercises Overseeing Care: Magy Romero Homebound: Leaving the home is medically contraindicated at this time without the asist of a device and/or another person due th the listed conditions above and below. Reason homebound: unsteady gait / fall risk Certification: Based on the above findings, I certify that this patient is confined to the home and needs intermittent assisted care, physical therapy and/or speech therapy, or continues to need occupational therapy. The patient is under my care, and I have initiated the establishment of the plan of care. The patient will be followed by a physician who will periodically review the plan of care. Time Spent With Patient Time: Total time managing care of this patient today ____ minutes.
[2024-10-04 13:23] VITALS: BP 145/66; PULSE 88; RESP 16; TEMP 36.8; O2SAT 98
== END 2024-10-04 13:31 | disposition home health service (06) ==
LOC: HO.ED 16:23 → HO.EDOVER 17:56 → HO.S3 18:59
PROVIDERS: Admitting Provider Physician Assistant Medical; Emergency Provider Emergency Medicine Emergency Medical Services; PCP Internal Medicine; Visit Provider Physician Assistant Medical
DX: N39.0 Urinary tract infection, site not specified (principal); R19.7 Diarrhea, unspecified; N13.30 Unspecified hydronephrosis; R53.1 Weakness; R11.2 Nausea with vomiting, unspecified; R35.0 Frequency of micturition; B34.9 Viral infection, unspecified; E86.9 Volume depletion, unspecified; M79.10 Myalgia, unspecified site; R10.30 Lower abdominal pain, unspecified; R05.9 Cough, unspecified; R25.1 Tremor, unspecified; I10 Essential (primary) hypertension; I25.10 Atherosclerotic heart disease of native coronary artery without angina pectoris; K21.9 Gastro-esophageal reflux disease without esophagitis; Z79.899 Other long term (current) drug therapy; Z03.818 Encounter for observation for suspected exposure to other biological agents ruled out
CPT/HCPCS: 0241U; 36415; 71045; 74177; 80053; 81001; 83690; 84484; 85025; 87086; 87088; 87186; 93005; 96361; 96374; 96375; 96376; 97161; 99221; 99285; J0696; J1885; J2405; Q9967

== ENCOUNTER → 2024-10-02 12:50 | Outpatient (BNV) | payer MEDICARE, OTHER, SELFPAY | PROVIDERS: Admitting Provider Physician Assistant Medical; Emergency Provider Emergency Medicine Emergency Medical Services; PCP Internal Medicine; Visit Provider Internal Medicine Cardiovascular Disease | DX: R53.1 Weakness (principal); I44.7 Left bundle-branch block, unspecified; R94.31 Abnormal electrocardiogram [ECG] [EKG] | CPT/HCPCS: 93010 ==

== ENCOUNTER → 2024-10-02 12:51 | Outpatient (BNV) | payer MEDICARE, OTHER, SELFPAY | PROVIDERS: Emergency Provider Emergency Medicine Emergency Medical Services; PCP Internal Medicine; Visit Provider Radiology Diagnostic Radiology | DX: R19.7 Diarrhea, unspecified (principal); K57.90 Diverticulosis of intestine, part unspecified, without perforation or abscess without bleeding; K44.9 Diaphragmatic hernia without obstruction or gangrene; N28.1 Cyst of kidney, acquired; J84.9 Interstitial pulmonary disease, unspecified | CPT/HCPCS: 74177 ==

== ENCOUNTER → 2024-10-02 17:32 | Outpatient (BNV) | payer MEDICARE, OTHER, SELFPAY | PROVIDERS: Admitting Provider Physician Assistant Medical; Emergency Provider Emergency Medicine Emergency Medical Services; PCP Internal Medicine; Visit Provider Physician Assistant Medical | DX: K52.9 Noninfective gastroenteritis and colitis, unspecified (principal); N39.0 Urinary tract infection, site not specified | CPT/HCPCS: 99222; 99232; 99239; G0180 ==

== ENCOUNTER 2024-10-05 12:32 | Emergency (ER) | payer MEDICARE, OTHER, SELFPAY ==
--- NOTE | ~2024-10-05 | CT_ITS ---
EXAMINATION: CT ABDOMEN AND PELVIS WITHOUT CONTRAST CLINICAL INFORMATION: Diffuse abdominal pain and constipation for 3 weeks. COMPARISON: CT dated October 02, 2024. TECHNIQUE: Multidetector volumetric imaging was performed from the superior aspect of the liver through the pubic symphysis. Sagittal and coronal reformatted images were obtained on the technologist's workstation. This CT examination was performed using dose optimization techniques as appropriate, variously including the following: *Automated exposure control *Adjustment of mA and/or kV according to patient size (this includes techniques or standardized protocols for targeted exams where dose is matched to indication/reason for exam; i.e. extremities or head) *Use of iterative reconstruction technique DLP: 416 mGy centimeters. FINDINGS: Limited and inadequate evaluation of the intra-abdominal organs and vascular structures due to lack of IV contrast. LUNG BASES: Patchy and confluent pulmonary groundglass, lung bases. Bilateral pleural effusions, small volume. Hiatal hernia, moderate volume. LIVER, GALLBLADDER, AND BILIARY TREE: Liver measures 14 cm with multifocal different sizes low density lesions, the largest measures 4.7 cm and measures 7 Hounsfield units. No pericholecystic fluid collection or gallbladder wall thickening. No intrahepatic or extrahepatic biliary ductal dilatation. PANCREAS: No peripancreatic fluid collection. No main pancreatic ductal dilatation. Questionable subcentimeter hypodensity in the body of the pancreas. SPLEEN: 9 cm. ADRENAL GLANDS: No nodular lesions. 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 No hydronephrosis in either kidney. BLADDER: Fluid-filled. GASTROINTESTINAL TRACT: Numerous diverticula throughout the left hemicolon mostly in the sigmoid colon. No intestinal obstruction pattern. No pneumatosis intestinalis. No pneumoperitoneum. No gross fluid collection. There is small amount of free fluid in the dependent portion of the pelvis/cul-de-sac. Appendix is normal. ABDOMINAL WALL: Moderate sized fat-containing umbilical hernia. LYMPH NODES: Nonspecific prominent lymph nodes in the retroperitoneum. VASCULAR: Mixed plaques throughout the abdominal aorta wall and iliac arteries without gross aneurysm. Mixed plaques in the origin of the mesenteric arteries and the right main renal artery. Coronary artery calcifications. Calcifications in the thoracic aorta.. PELVIC VISCERA: Unable to evaluate. OSSEOUS STRUCTURES: There is a dextroconvex rotoscoliosis of the upper lumbar spine and levoconvex scoliosis of the lower lumbar spine. Multilevel thoracolumbar spondylosis. No acute fracture or gross listhesis. CT/CT abdomen pelvis wo IV con IMPRESSION: Diverticular disease. No intestinal obstruction pattern. Fat-containing umbilical hernia. Complex cystic lesions in the left kidney. An underlying mass cannot be excluded. Multifocal hypodensities, hepatic. Thoracolumbar spondylosis and scoliosis. Hiatal hernia, moderate volume. Ascites, small volume. Bilateral pleural effusions, small. Fleischner guidelines were followed. Electronically signed by: Williams Plascencia MD 10/05/2024 03:45 PM KARINA
--- NOTE | ~2024-10-05 | CT_ITS ---
EXAMINATION: CT CHEST WITHOUT CONTRAST CLINICAL INFORMATION: Fever. Weakness. Concerning pneumonia. COMPARISON: CT angiogram chest dated September 08, 2016. TECHNIQUE: Multidetector volumetric CT imaging of the chest was done. Axial MIP volume rendering provided. Sagittal and coronal reformatted images were obtained. This CT examination was performed using dose optimization techniques as appropriate, variously including the following: *Automated exposure control *Adjustment of mA and/or kV according to patient size (this includes techniques or standardized protocols for targeted exams where dose is matched to indication/reason for exam; i.e. extremities or head) *Use of iterative reconstruction technique DLP: 145 mg centimeter. FINDINGS: PROGRAM MANUFACTURING LEADER: No hyperinflation. Questionable elevated left hemidiaphragm. Desiccation seen in the aorta. Multilevel thoracolumbar spondylosis and a S-shaped curvature. LUNGS: Confluent attenuation in the periphery of the lung bases with associated linear attenuations. No bronchiectasis. No honeycombing. Respiratory airways is patent. No gross pulmonary nodules. MEDIASTINUM: No gross lymphadenopathy. Trace of pericardial effusion. CORONARY ARTERY CALCIFICATION: Mild calcified plaques. Calcified plaques throughout the thoracic aorta its main branches. No aneurysm in the thoracic aorta. PLEURA: Bilateral perfusions, small volume. No pneumothorax. AXILLA: No lymphadenopathy. UPPER ABDOMEN: Small hiatal hernia. Multifocal hypodensities in the hepatic parenchyma. Probable large cystic lesion, left kidney. OSSEOUS STRUCTURES: Multilevel spondylosis, thoracolumbar spine. No acute fracture or gross listhesis. Nonspecific focal subcentimeter blastic lesion at T4 vertebra. Probable intraosseous hemangioma T7 and T8. CT/CT chest wo IV con IMPRESSION: Atelectasis, lung bases. Bilateral small pleural effusions. Trace of pericardial effusion. Atherosclerosis disease, aorta. Please refer to the CT abdomen and pelvis findings. Fleischner guidelines were followed. Electronically signed by: Williams Plascencia MD 10/06/2024 11:05 AM KARINA
[2024-10-05 12:58] VITALS: BP 100/82; PULSE 82; O2SAT 97
--- NOTE | 2024-10-05 13:02 | ED.NAVMDI ---
HPI - Nausea/Vomiting/Diarrhea General Chief complaint: Abdominal Pain Stated complaint: NAUSEA PER EMS Time Seen by Provider: 10/05/24 13:02 Source: patient, family (neighbor), EMS, RN notes reviewed and old records reviewed Mode of arrival: EMS Limitations: no limitations History of Present Illness ED Provider: EMMA PARSON PA-C HPI Narrative: 88 year old female with pmhx significant for CAD, HTN, GERD, LBBB, chronic lower back pain secondary to lumbar DDD and spinal stenosis presents to the ED today via EMS from home for evaluation of constipation x3 weeks. Admits to diffuse abdominal discomfort and nausea without vomiting. Endorses decreased appetite. She is passing flatus. Patient was recently seen in our ED on 10/02/24 for evaluation of weakness, diarrhea, nausea w/o vomiting, urinary frequency, and myalgias. Lab work on 10/02/24 showed a drop in H&H below patient's baseline, although above transfusion threshold. chemistry showed an elevated BUN at 36 with normal creatinine. she was treated with IVF. Urine was concerning for infection and patient was started on ceftin for treatment. Of note, urine culture grew >100k proteus mirabilis, sensitive to current antibiotic regimen. CT showed a mass to her left kidney (suspected neoplasm), thickening of the urinary bladder wall, and diverticulitis without evidence of diverticulitits. no evidence of bowel obstruction. ED provider suspected viral syndrome and due to continued generalized weakness, patient was admitted to the medical floor for IVF management. She was unable to provide stool sample for GI panel/ cdiff testing at that time. She was discharged yesterday with ceftin and states she has been taking this as prescribed however it makes her nauseous. Upon further questioning regardig recent visit, patient tells me that they got it wrong during her stay. She is denying that she ever had diarrhea and is adamant that she has not had a BM in 3 weeks. Reports taking one dose of colace last night and one dose of metamucil this morning. She has not trialed any other regimens to move her bowels. She does admit to eating a tuna salad which upset her stomach a few weeks ago, causing her to have one episode of loose stools. She denies taking opioid pain medication. Denies any previous abdomen surgeries. Related Data Home Medications ?Medication ?Instructions ?Recorded ?Confirmed denosumab 60 mg/mL subcutaneous 60 mg subcut [id number] 05/25/20 10/05/24 syringe (Prolia) acetaminophen 500 mg tablet 1,000 mg PO BID PRN pain 05/17/23 10/05/24 (Tylenol Extra Strength) propranolol 60 mg capsule,24 60 mg PO DAILY 03/04/24 10/05/24 hr,extended release buspirone 7.5 mg tablet 7.5 mg PO BEDTIME 10/02/24 10/05/24 calcium carbonate 500 mg PO DAILY 10/02/24 10/05/24 furosemide 20 mg tablet 20 mg PO DAILY PRN Foot swelling 10/02/24 10/05/24 Previous Rx's ?Medication ?Instructions ?Recorded miscellaneous medical supply #1 ea 05/07/23 lisinopril 2.5 mg tablet 2.5 mg PO DAILY #90 tabs 09/24/24 omeprazole 20 mg capsule,delayed 20 mg PO DAILY #90 caps 09/24/24 release primidone 50 mg tablet 100 mg (2 x 50 mg) PO BID #180 tabs 09/24/24 cyanocobalamin (vitamin B-12) 1,000 mcg IM Q4W #3 mL 10/03/24 1,000 mcg/mL injection solution cefuroxime axetil 250 mg tablet 250 mg PO Q12H 4 days #8 tabs 10/04/24 Allergies Allergy/AdvReac Type Severity Reaction Status Date / Time No Known Allergies Allergy Verified 10/05/24 13:36 Review of Systems Review of Systems: Constitutional: No fever, chills, fatigue, night sweats, weight changes ENT/Mouth: No ear pain, hearing loss, nasal congestion, sinus pain, rhinorrhea, sore throat Eyes: No eye pain, swelling, redness, vision changes, discharge Cardio: No chest pain, palpitations, NIX, orthopnea, peripheral edema Pulm: No SOB, cough, sputum, wheezing, dyspnea, hemoptysis GI: No vomiting, hematemesis, diarrhea, hematochezia, melena, +abd pain, +constipation, +nausea : No irregular bleeding, dysuria, frequency, urgency, hesitancy, hematuria, flank pain, urinary flow changes, urinary incontinence or retention MSK: No back pain, neck pain, joint pain, myalgias Skin: No lesions, rashes Neuro: No weakness, numbness, paresthesias, LOC, dizziness, headache Psych: No anxiety/panic, depression, SI/HI, AH/VH All other systems reviewed and are negative. [facility] Past Medical History Attestation statement: The following information was validated with the patient. 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 Mother Arthritis Son No problems noted. Daughter No problems noted. Brother No problems noted. Social History Social History Housing: Condominium Alcohol intake: former Patient Tobacco Use Status: Never used Tobacco Tobacco use type: Cigarette e-Cigarette/Vaping Use: Never Used Second Hand Smoke Exposure: Yes Advance Directives: Yes Advance Directives on File: Yes Advance Directives Date on File: 03/11/24 Do you have a plan to hurt others: No Plan service: No Current occupational status: retired Current occupation: Retired Cognitive needs: No Hearing needs: No Vision needs: Yes Physical Exam Vital Signs: Vital Signs: Last Vital Signs Temp 98.7 F 10/07/24 14:00 Pulse 88 10/07/24 14:00 Resp 17 10/07/24 14:00 BP 120/59 L 10/07/24 14:00 Pulse Ox 94 10/07/24 14:00 O2 Del Method Room Air 10/07/24 14:00 BMI result Body Mass Index 22.0 vital signs stable General: Well appearing, in no acute distress. Skin: Warm, dry, intact. No rashes or lesions. Head: Normocephalic, atraumatic. EENT: Hearing is intact b/l. Conjunctiva clear. PERRLA. EOM intact. Moist mucous membranes.? Neck: Supple without LAD? Cardiac: Chest wall symmetric. RRR Lungs: Normal respiratory effort without accessory muscle use. CTA bilaterally Abdomen: soft, mildly distended, diffusely tender with light palpation. decreased BS to both lower quadrants. no cvat. Rectal exam performed with [facility] Tech present in room to teaching artist. Normal rectal sphincter tone. No external masses or lesions. palpable hard stool in rectal vault at the tip of my finger, unable to manually disimpact. OBS not performed. Back: No midline spinous or paraspinal tenderness Ext: Upper and lower extremities atraumatic, without tenderness, deformity, swelling or erythema Neuro: AOx3. Normal speech. Psych: Appropriate mood and affect. Responds appropriately to questions. Course Course Course Narrative: 1614 -- CBC without leukocytosis or left shift. macrocytic anemia, chronic when compared to priors. chemistry without acute electrolyte abnormality requiring intervention. BUN slightly elevated to 21 however improve from 10/02/24. Creatinine wnl. liver function normal. lipase normal. UA and viral serology pending. Ct A/P showing diverticulosis without evidence of diverticulitis. There is no intestinal obstruction pattern. Radiologist does not comment on stool burden. On my review of imaging, there seems to be a moderate amount of stool within the rectum. I am able to slightly palpate this on exam however can not manually disimpact as these stool is to proximal. I do feel as though patient would benefit from enema at this time and she is agreeable. this has been ordered. CT also shows complex cystic lesion within the left kidney. Mass can not be excluded. 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 urology was consulted at that time - recommended outpatient follow up without further intervention. UA pending however will continue ceftin. > patient stable at the end of my shift. Sign-out given to Cammie PAULSON pending enema, UA and disposition. Reevaluation(s) Reevaluation #1: [id number] Cammie Muller PA-C ---> I had a lengthy conversation with the patient and her daughter Nadeen. Together, we decided the patient would remain in the department for physical therapy evaluation and case management involvement. Patient had expressed concern about going home and being too weak to function there independently. Patient does live alone and is not in assisted living. Patient placed in physician observation pending physical therapy and case management. Time: 18:29 Reevaluation #2: 10/06/24 0918 -- Patient spiked a temp of 101.8F, improved with tylenol. mild UTI currently being treated with ceftin. labs are otherwise unremarkable. viral swabs negative. CXR on 10/02/[address] a/p yesterday did not demonstrate any acute infectious pathology within the abdomen however did show small pleural effusions bilaterally. Will obtain CT chest to rule out infectious etiology. patient is agreeable. 10/07/24 0424 SAVANNA Zuniga-- Physician observation continued, no overnight events reported by nursing. CT chest notable to bibasilar atelectasis, small bilat pleural effusions, trace pericardial effusion, no evidence of infectious pathology. Vital signs stable. PT recommending STR. following for disposition. 10/07/24 1502 SAVANNA Zuniga- Per Oliva from , patient will be discharged to [facility] via BLS at 1800 for STR. Observation care revealed that patient does not meet medical necessity for hospitalization. Final disposition discussed with patient. The patient completed observation care at 1800 on 10/07/24. Medications Administered Generic Name Dose Route Start Last Admin Trade Name Freq PRN Reason Stop Dose Admin Acetaminophen 975 mg 10/06/24 10:38 10/06/24 21:28 Acetaminophen 325 Mg Tablet PO 975 mg BID PRN Administration Pain, Moderate(Pain Scale 4-6) Buspirone HCl 7.5 mg 10/06/24 09:00 10/06/24 21:28 Buspirone Hcl 5 Mg Tablet PO 7.5 mg BEDTIME DAWNA Administration Cefuroxime Axetil 250 mg 10/05/24 21:00 10/07/24 08:34 Cefuroxime Axetil 250 Mg Tablet PO 10/08/24 21:00 250 mg BID DAWNA Administration Lisinopril 2.5 mg 10/06/24 09:00 10/07/24 08:33 Lisinopril 2.5 Mg Tablet PO 2.5 mg DAILY DAWNA Administration Protocol Omeprazole 20 mg 10/06/24 10:45 10/07/24 05:40 Omeprazole 20 Mg Capsule.Dr PO 20 mg DAILY@0630 DAWNA Administration Primidone 100 mg 10/06/24 09:00 10/07/24 08:34 Primidone 50 Mg Tablet PO 100 mg BID DAWNA Administration Propranolol HCl 60 mg 10/06/24 11:00 10/07/24 08:33 Propranolol Hcl La 60 Mg Cap.Sa.24h PO 60 mg DAILY DAWNA Administration Protocol Discontinued Medications Generic Name Dose Route Start Last Admin Trade Name Freq PRN Reason Stop Dose Admin Acetaminophen 650 mg 10/05/24 21:41 10/05/24 21:52 Acetaminophen 325 Mg Tablet PO 10/05/24 21:42 650 mg ONCE ONE Administration Acetaminophen 975 mg 10/06/24 06:27 10/06/24 06:31 Acetaminophen 325 Mg Tablet PO 10/06/24 06:28 975 mg ONCE ONE Administration Sodium Chloride 1,000 mls @ 999 mls/hr 10/05/24 14:00 10/05/24 18:18 Ns IV 10/05/24 15:00 Infused .Q1H1M DAWNA Infusion Ondansetron HCl 4 mg 10/05/24 14:00 10/05/24 15:43 Ondansetron Hcl 4 Mg/2 Ml Vial IVPUSH 10/05/24 14:01 4 mg ONCE ONE Administration Ondansetron HCl 4 mg 10/06/24 20:28 10/06/24 20:36 Ondansetron Hcl 4 Mg/2 Ml Vial IVPUSH 10/06/24 20:29 4 mg ONCE ONE Administration Medical Decision Making Medical Decision Making MDM Narrative: 88 year old female with pmhx significant for CAD, HTN, GERD, LBBB, chronic lower back pain secondary to lumbar DDD and spinal stenosis presents to the ED today via EMS from home for evaluation of constipation x3 weeks. Vital signs stable. patient is nontoxic appearing and in NAD. on exam, abdomen is soft, mildly distended, diffusely tender with light palpation. decreased BS to both lower quadrants. no cvat. on JOE, normal rectal sphincter tone. No external masses or lesions. palpable hard stool in rectal vault at the tip of my finger, unable to manually disimpact. OBS not performed. Differential diagnosis includes anemia, electrolyte abnormality, dehydration, gastroenteritis, constipation, diverticulosis, diverticulitis, UTI Lower suspicion for bowel obstruction, ischemic bowel, appendicitis, cholecystitis. Plan for basic blood work, UA, CT A/P, zofran + IVFs Differential Diagnosis Differential Diagnoses: The differential diagnosis associated with the presentation includes as above. Admission/Observation Consideration of admission/observation: Escalation of care including admission/observation considered Lab Data MDM Lab Attestation statement: I reviewed the patient's lab results. as above. 10/05/24 15:32 10/05/24 15:32 Labs: Lab Results 10/05/24 10/05/24 10/06/24 Range/Units 15:32 17:18 21:15 WBC 10.7 (4.8-10.8) X10*3/uL RBC 3.32 L (4.20-5.50) X10*6/uL Hgb 10.7 L (12.0-16.0) g/dl Hct 32.9 L (37.0-47.0) % MCV 99.1 H (80.0-98.0) fL MCH 32.2 (27.0-33.0) pg MCHC 32.5 (31.0-35.0) g/dl RDW 12.7 (11.0-16.0) % Plt Count 246 (160-400) X10*3/uL MPV 10.3 (9.4-12.3) fL Immature Gran % (Auto) 0.6 H (0.0-0.4) % Neut % (Auto) 78.7 H (45-73) % Lymph % (Auto) 11.1 L (20-40) % Beckham % (Auto) 9.3 (2-11) % Eos % (Auto) 0.1 (0-4) % Baso % (Auto) 0.2 (0-2) % Lymph # (Auto) 1.2 (1.2-4.9) X10*3/uL Beckham # (Auto) 1.0 (0.1-1.2) X10*3/uL Eos # (Auto) 0.0 (0.0-0.4) X10*3/uL Baso # (Auto) 0.0 (0.0-0.2) X10*3/uL Abs Immat Gran (auto) 0.06 H (0.00-0.03) X10*3/uL Absolute Neuts (auto) 8.4 H (2.0-8.3) x10*3/uL Absolute Nucleated RBC 0.000 (0.0-0.012) X10*3/uL Nucleated RBC % (auto) 0.0 (0.0-0.2) /100WBC Sodium 140 (135-145) mmol/L Potassium 4.0 (3.3-5.1) mmol/L Chloride 106 (96-108) mmol/L Carbon Dioxide 24 (22-29) mmol/L Anion Gap 14 (12-20) BUN 21 H (9-16) mg/dL Creatinine 0.79 (0.5-1.4) mg/dL Estim Creat Clear Calc 45.1 Estimated GFR > 60 Random Glucose 89 (60-115) mg/dL Calcium 8.9 (8.4-10.2) mg/dL Magnesium 1.8 (1.6-2.6) mg/dL Total Bilirubin 0.3 (0.0-1.0) mg/dL AST 15 (5-31) U/L ALT < 6 (0-31) U/L Alkaline Phosphatase 40 (39-117) U/L Total Protein 6.5 (6.5-8.0) g/dL Albumin 3.1 L (3.5-5.0) g/dL Lipase 24 (8-78) U/L Urine Color Dark Yellow Urine Appearance Cloudy Urine pH 5.5 (5.0-9.0) Ur Specific Edwards >= 1.030 H (1.005-1.025) Urine Protein 30 (1+) H (Neg-Trace) mg/dL Urine Glucose (UA) Negative (Negative) mg/dL Urine Ketones 40 (Negative) mg/dL Urine Blood Negative (Negative) Urine Nitrite Negative (Negative) Ur Leukocyte Esterase Negative (Negative) Urine RBC 0-2 (0-2) /HPF Urine WBC 0-5 (0-5) /HPF Ur Squamous Epith Cells 0-2 (0-2) /HPF Ur Transition Epith Cell Present Urine Bacteria Trace (None Seen) Hyaline Casts 0-2 (0-2) /LPF Influenza Type A (PCR) NEGATIVE NEGATIVE (Negative) Influenza Type B (PCR) NEGATIVE NEGATIVE (Negative) RSV RNA Qual (PCR) NEGATIVE NEGATIVE (Negative) SARS-CoV-2 RNA (RT-PCR) NEGATIVE NEGATIVE (Negative) Independent Interpretation I performed an independent interpretation of an: CT Scan Interpretation: CT A/P Radiology Impression Discussion of test interpretation with radiology: I have reviewed the radiologist's reading. Independent Historian Clinical information obtained from an independent historian. History obtained from or confirmed by: Friend (neighbor) External Record Review External record reviewed: Inpatient record Social Determinants Patient?s care significantly limited by Social Determinants of Health including: Other Social Determinant of Health Critical Care Time Critical Care Time Critical Care Time: No Discharge Plan Discharge Clinical Impression: Constipation, Weakness Patient Disposition: Xfer Inpatient Rehab Fac Transfer Details: to [facility] via [facility] Prescriptions: No Action (DME) miscellaneous medical supply Misc See Rx Instructions .Route Qty: 1 0RF Rx Instructions: Elevated toilet seat with handles lisinopril 2.5 mg tablet 2.5 mg PO DAILY Qty: 90 3RF omeprazole 20 mg capsule,delayed release(DR/EC) 20 mg PO DAILY Qty: 90 3RF primidone 50 mg tablet 100 mg PO BID Qty: 180 3RF cyanocobalamin (vitamin B-12) 1,000 mcg/mL solution 1,000 mcg IM Q4W Qty: 3 3RF buspirone 7.5 mg tablet 7.5 mg PO BEDTIME furosemide 20 mg tablet 20 mg PO DAILY PRN (Reason: Foot swelling) calcium carbonate 500 mg calcium (1,250 mg) Tablet 500 mg PO DAILY cefuroxime axetil 250 mg tablet 250 mg PO Q12H 4 Days Qty: 8 0RF acetaminophen [Tylenol Extra Strength] 500 mg tablet 1,000 mg PO BID PRN (Reason: pain) propranolol 60 mg capsule,extended release 24 hr 60 mg PO DAILY Prolia 60 mg/mL syringe 60 mg subcut [id number] Referrals: [facility] [Outside] Magy Romero MD [Primary Care Provider] - Print Language: Yakut
[2024-10-05 13:35] VITALS: BP 133/57; PULSE 80; RESP 20; TEMP 36.9; O2SAT 97; BMI 22.0
--- OUTSIDE RECORDS SUMMARY | 2024-10-05 14:55 | XMS_ITS | Patient Health Record ---
Author Organization [facility] Address [address] [place] [address] Care Team Providers Care It Engineer Name Role Phone Heather CONNORS, Magy Primary Care Provider Brian Tam Unavailable [phone] SALOMÓN CHAMPION Unavailable Unavailable ALLERGIES Allergen (clinical [...] Notes Problem Erosive esophagitis (K22.10) Active confirmed 58644342 Problem Gastroesophageal reflux disease with esophagitis (K21.0) Active confirmed 753345195 Problem Constipation, unspecified constipation type (K59.00) Active confirmed 44081815 Problem Lower abdominal pain (R10.30) Active confirmed 09141248 Problem Esophagitis (K20.9) Active confirmed 16 343025 Problem Cough (R05) Active confirmed 03391629 PLAN OF TREATMENT Pending Test Test Name Order Date XR CHEST 2 VIEW PA & LAT 04/25/2021 Future Test Test Name Order Date UPPER GI ENDOSCOPY 11/13/2016 Insurance Providers Payer Name Payer Address Payer Phone Subscriber Number Group Number Insured Name Patient Relationship to Insured Coverage Start Date Coverage End Date MEDICARE OF [place] [address] [place] [address] [id number] HITESH JACOBS Self - patient is the insured [employer] [address] [place] [address] [phone] [id number] ARLENE HITESH Self - patient is the [...] Tremors Elevated cholesterol Degenerative joint disease Denies AR,DM,CVA,Lung disease,renal dise ase Surgical History Surgery Date(Month/Year) Cataracts/lens implants 10/2006
--- OUTSIDE RECORDS SUMMARY | 2024-10-05 14:55 | XMS_ITS | Continuity of Care Document ---
Author Name [facility] Organization [facility] Care Team Providers Care Metal Dealer Name Role Phone [facility] Unavailable Unavailable Medications Combined list of outpatient [...] ORAL, [employer] 100 ea. BOTTLE Active [id number] 4 2023 90 Pharmac y Data Transac tion Service Facilit y CELECOXIB (celecoxib) , 200 MG, CAPSULE, ORAL, [employer], 500 ea. BOTTLE Active [id number] 4 2023 90 Pharmac y Data Transac tion Service Facilit y CELECOXIB (celecoxib) , 200 MG, CAPSULE, ORAL, [employer], 500 ea. BOTTLE Active [id number] 4 2023 90 Pharmac y Data Transac tion Service Facilit y LISINOPRIL (lisinopril ), 2.5 MG, TABLET, ORAL, EXELAN PHARMACE, 500 ea. BOTTLE Active [id number] 4 2023 90 Pharmac y Data Transac tion Service Facilit y LISINOPRIL (lisinopril ), 2.5 MG, TABLET, ORAL, EXELAN PHARMACE, 500 ea. BOTTLE Active [id number] 4 2023 90 Pharmac y Data Transac tion Service Facilit y LISINOPRIL (LISINOPRIL ), 2.5MG, TABLET, ORAL, LUPIN PHARMACEU, 500 ea. BOTTLE Active [id number] 4 2023 90 Pharmac y Data Transac tion Service Facilit y OMEPRAZOLE (omeprazole ), 20 MG, CAPSULE DR, ORAL, [employer], 1000 ea. BOTTLE Active [id number] 4 2023 90 Pharmac y Data Transac tion Service Facilit y OMEPRAZOLE (omeprazole ), 20 MG, CAPSULE DR, ORAL, [employer], 1000 ea. BOTTLE Active [id number] 4 2023 90 Pharmac y Data Transac tion Service Facilit y PRIMIDONE (PRIMIDONE) , 50 MG, TABLET, ORAL, AV FAZAL, 500 ea. BOTTLE Cancele d [id number] : 2023 0 Pharmac y Data Transac tion Service Facilit y PRIMIDONE (primidone) , 50 MG, TABLET, ORAL, [employer], 500 ea. BOTTLE Cancele d [id number] : 2023 0 Pharmac y Data Transac tion Service Facilit y PRIMIDONE (PRIMIDONE) , 50MG, TABLET, ORAL, [employer], 100 ea. BOTTLE Active [id number] 4 2023 270 Pharmac y Data Transac tion Service Facilit y PROPRANOLOL HCL ER (propranolo l HCl), 60 MG, CAP SA 24H, ORAL, [employer], 100 ea. BOTTLE Active [id number] 4 2023 90 Pharmac y Data Transac tion Service Facilit y PROPRANOLOL HCL ER (propranolo l HCl), 60 MG, CAP SA 24H, ORAL, [employer], 100 ea. BOTTLE Active [id number] 4 2023 90 Pharmac y Data Transac tion Service Facilit y PROPRANOLOL HCL ER (propranolo l HCl), 60 MG, CAP SA 24H, ORAL, [employer], 100 ea. BOTTLE Active [id number] 4 2023 90 Pharmac y Data Transac tion Service Facilit y Immunizations Combined list of available immunizations from the Department of Defense and Veterans Affairs facilities. Immunization Series Date Given Administered By Site Reaction Lot Number CVX Code Drug Digital Sales Director Status Comments Source COVID-19, mRNA, LNP-S, PF, 30 mcg/0.3 mL dose, susana-sucrose 2021 RAM[employer]Z [employer] (PFR) Not Given COVID-19, mRNA, LNP-S, PF, 30 mcg/0.3 mL dose, susana-sucr ose DoD COVID-19, mRNA, LNP-S, PF, 30 mcg/0.3 mL dose 2020 MIRNA, [employer] (PFR) Not Given COVID-19, mRNA, LNP-S, [...]
[2024-10-05 15:31] VITALS: BP 129/55; PULSE 85; RESP 16; TEMP 37; O2SAT 96
[2024-10-05 15:37] LABS: MANUAL DIFF FLAG NO
[2024-10-05 15:40] LABS: Basophils Percent Auto 0.2 % (0-2); Eosinophils Percent Auto 0.1 % (0-4); Hematocrit 32.9 % (37.0-47.0); Hemoglobin 10.7 g/dl (12.0-16.0); Imm Gran Abs Auto 0.06 X10*3/uL (0.00-0.03); Imm Gran Pct Auto 0.6 % (0.0-0.4); Lymphocytes Absolute Auto 1.2 X10*3/uL (1.2-4.9); Lymphocytes Percent Auto 11.1 % (20-40); Mean Corpuscular HGB Conc 32.5 g/dl (31.0-35.0); Mean Corpuscular Hemoglobin 32.2 pg (27.0-33.0); Mean Corpuscular Volume 99.1 fL (80.0-98.0); Mean Platelet Volume 10.3 fL (9.4-12.3); Monocytes Percent Auto 9.3 % (2-11); Neutrophils Absolute Auto 8.4 x10*3/uL (2.0-8.3); Neutrophils Percent Auto 78.7 % (45-73); Platelet Count 246 X10*3/uL (160-400); Red Blood Count 3.32 X10*6/uL (4.20-5.50); Red Cell Distribution Width 12.7 % (11.0-16.0); White Blood Count 10.7 X10*3/uL (4.8-10.8)
[2024-10-05] MEDS: 0.9 % Sodium Chloride 1,000 ML 999 ML IV (15:40)
[2024-10-05] MEDS: ondansetron HCL 4 MG/2 ML VIAL IVPUSH (15:43)
[2024-10-05 16:02] LABS: Alanine Aminotransferase < 6 U/L (0-31); Albumin Level 3.1 g/dL (3.5-5.0); Alkaline Phosphatase 40 U/L (39-117); Anion Gap 14 (12-20); Aspartate Amino Transferase 15 U/L (5-31); Bilirubin Total 0.3 mg/dL (0.0-1.0); Blood Urea Nitrogen 21 mg/dL (9-16); Calcium 8.9 mg/dL (8.4-10.2); Carbon Dioxide 24 mmol/L (22-29); Chloride 106 mmol/L (96-108); Creatinine Clr Calc Pharmacy 45.1; Estimated Glomerular Filt Rate > 60; Glucose Random 89 mg/dL (60-115); Lipase 24 U/L (8-78); Magnesium 1.8 mg/dL (1.6-2.6); Sodium 140 mmol/L (135-145); Total Protein 6.5 g/dL (6.5-8.0)
[2024-10-05 16:36] LABS: Influenza A PCR NEGATIVE (Negative); Influenza B PCR NEGATIVE (Negative); Resp Syncy Virus RNA Qual PCR NEGATIVE (Negative); SARS COV2 PCR INHOUSE NEGATIVE (Negative)
[2024-10-05 17:29] LABS: Appearance Urine Cloudy; Color Urine Dark Yellow; Glucose Urine UA Negative (Negative); Leukocyte Esterase Urine Negative (Negative); Nitrite Urine Negative (Negative); PH 5.5 (5.0-9.0); Specific Gravity - Urine >= 1.030 (1.005-1.025); UMIC TRIGGER UACC YES; Urine Blood Negative (Negative); Urine Ketones 40 mg/dL (Negative); Urine Protein 30 (1+) mg/dL (Neg-Trace)
[2024-10-05 17:57] LABS: Bacteria Urine Trace (None Seen); Hyaline Casts Urine 0-2 /LPF (0-2); RBC Urine 0-2 /HPF (0-2); Squamous Epithelial Cell Urine 0-2 /HPF (0-2); Transitional Epi Cells Urine Present; WBC Urine 0-5 /HPF (0-5)
[2024-10-05] MEDS: cefuroxime axetiL 250 MG TABLET PO (20:25)
[2024-10-05 20:26] VITALS: BP 130/51; PULSE 88; RESP 16; TEMP 37.2; O2SAT 94
[2024-10-05] MEDS: Acetaminophen 325 MG TABLET 650 MG PO (21:52)
--- NOTE | 2024-10-05 21:53 | PC.NURSE ---
pt resting in bed, purewick in placed, pt requesting tylenol for headache. pt medication per OCT
[2024-10-05 22:04] VITALS: RESP 18; O2SAT 94
--- NOTE | 2024-10-05 22:17 | PHA.MEDREC ---
Addendum entered by Lou Tapia RPh 10/05/24 22:51: [facility] REVIEWED Original Note: Pharmacy Consult ? Medication Reconciliation Pharmacy has completed the medication reconciliation. Spoke with patient and confirmed what she is taking. She confirmed she is taking the Cefuroxime 250mg tab and when I asked when she started it she states she has been taking it for a little bit now looking in claims it looks like that was filled yesterday 10/04; I called patients pharmacy and they confirmed she got the Cefuroxime 250mg tab and the Vitamin B-12 yesterday 10/04. I went to speak with patient on the to ask if she got anything from her pharmacy yesterday the patient was asleep. The patient also confirmed she is still taking the denosumab 60 mg/mL subcutaneous syringe and did not remember the last time she got it done but states she has an appointment soon to get it again . She states she is not taking the Tramadol 50mg tab anymore due to not liking how it made her feel while taking it. She confirmed she took her morning medications this morning.
[2024-10-06] VITALS (9 sets, daily range): BP systolic 114–189; BP diastolic 51–81; PULSE 79–99; RESP 16–20; TEMP 36.4–39.4; O2SAT 92–98
[2024-10-06] MEDS: Acetaminophen 325 MG TABLET 975 MG PO ×2 (06:31→21:28)
--- NOTE | 2024-10-06 06:33 | PC.NURSE ---
pt medicated per OCT for fever
[2024-10-06] MEDS: cefuroxime axetiL 250 MG TABLET PO ×2 (09:16→21:28)
--- NOTE | 2024-10-06 09:18 | PC.NURSE ---
this RN resumed care of pt at 0645. a&ox4. vss and up to date. pt febrile prior to this RN's arrival. previous RN administered tylenol w/ good effect. pt denies pain. abx administered per provider order. home medications still unverified - will administer medication when able. no sob/wob noted. respirations even/unlabored. plan of care ongoing.
[2024-10-06] MEDS: Omeprazole 20 MG CAPSULE.DR PO (11:49)
[2024-10-06] MEDS: lisinopriL 2.5 MG TABLET PO (11:50)
[2024-10-06] MEDS: busPIRone HCl 5 MG TABLET 7.5 MG PO ×2 (11:50→21:28)
--- NOTE | 2024-10-06 12:08 | PC.NURSE ---
report given to SCOUT Winn in overflow at this time.
--- NOTE | 2024-10-06 12:35 | PC.NURSE ---
Patient into overflow bed, asking about the plan of care, patient states she wants to go home. Awaiting case management for patient update
[2024-10-06] MEDS: Propranolol HCL LA 60 MG CAP.SA.24H PO (12:40)
[2024-10-06] MEDS: Primidone 50 MG TABLET 100 MG PO ×2 (12:41→21:34)
--- NOTE | 2024-10-06 13:24 | MHC.CM.ED ---
Addendum entered by Oliva Zaragoza 10/06/24 13:53: Per Delmis ADAME, patient had enema last night (10/05) which resulted in BM. Original Note: Received case management consult over night. Patient came to the ER d/t nausea. Work up indicated constipation. Physical therapy eval completed. Rehab is recommended. Patient has not been inpatient in any facility in the past 30 days. Referral made to all 3 acute rehab facilities. No acute rehab bed offers at this time. Patient has [facility] standard plus frail and elderly. #[phone]. Referral broadcasted locally for SNF at this time. [facility] is only facility able to offer at this time. Other facilities are still reviewing. Met with patient and daughter, Nadeen, in regards to discharge planning. Patient lives alone, ambulates with a walker when out of her home and was supposed to start care with [facility] today. Patient has been to [facility] in the past and is agreeable to STR there. Patient aware she will most likely be with us overnight until [facility] leveling can be obtained from [facility]. Patient and Nadeen aware. Continue to monitor for d/c needs.
--- NOTE | 2024-10-06 13:31 | PC.NURSE ---
Pt axox3. granddaughter at bedside. denies abd pain. unlabored resp. skin PWD. Pt isn't sure if she had a BM after the enema last night
[2024-10-06] MEDS: ondansetron HCL 4 MG/2 ML VIAL IVPUSH (20:36)
--- NOTE | 2024-10-06 20:38 | PC.NURSE ---
in last hour pt has developed abd pain and nausea. was up to commode with assist but no BM. just now started dry heaving. zofran administered. Provider has been aware and additional orders are in. Pt remains axox3. baseline shakes are worse. WIll continue to monitor.
[2024-10-06 22:02] LABS: Influenza A PCR NEGATIVE (Negative); Influenza B PCR NEGATIVE (Negative); Resp Syncy Virus RNA Qual PCR NEGATIVE (Negative); SARS COV2 PCR INHOUSE NEGATIVE (Negative)
--- NOTE | 2024-10-06 22:14 | PC.NURSE ---
Pt is settling down. Less shakes. Took PO meds w/o vomiting.
--- NOTE | 2024-10-07 01:28 | MHC.EDTECH ---
This tech took over care of pt at 0115,rounds completed,pt is sleeping resp rate WNL,call sykes in reach
[2024-10-07] MEDS: Omeprazole 20 MG CAPSULE.DR PO (05:40)
[2024-10-07 06:00] VITALS: BP 118/58; PULSE 87; RESP 16; TEMP 37.1; O2SAT 95
--- NOTE | 2024-10-07 06:15 | MHC.EDTECH ---
Hourly rounds and vitals completed,patient was repositioned to comfort,gave pt a back rub,emptied 300MLS of urine from canister,(tea color), patient is clean and dry,call sykes in reach
[2024-10-07 08:33] VITALS: BP 109/53; PULSE 86
[2024-10-07] MEDS: lisinopriL 2.5 MG TABLET PO (08:33)
[2024-10-07] MEDS: Propranolol HCL LA 60 MG CAP.SA.24H PO (08:33)
[2024-10-07] MEDS: Primidone 50 MG TABLET 100 MG PO (08:34)
[2024-10-07] MEDS: cefuroxime axetiL 250 MG TABLET PO (08:34)
[2024-10-07 09:55] VITALS: BP 106/55; PULSE 88; RESP 18; TEMP 36.9; O2SAT 94
[2024-10-07 14:00] VITALS: BP 120/59; PULSE 88; RESP 17; TEMP 37.1; O2SAT 94
--- NOTE | 2024-10-07 15:27 | MHC.CM.ED ---
[facility] Patient can leave at 6pm. Tushar VELAZQUEZ booked. Med nec with chart. Patient, daughter, Magui Senior RN and Kristi CORRALES aware. Continue to monitor for d/c needs.
[2024-10-07 17:24] VITALS: BP 136/64; PULSE 78; RESP 18; TEMP 36.7; O2SAT 98
[2024-10-07 18:26] VITALS: BP 136/64; PULSE 78; RESP 18; TEMP 36.7; O2SAT 98
== END 2024-10-07 18:27 ==
PROVIDERS: Nurse Practitioner Family; Physician Assistant Medical; Emergency Provider Emergency Medicine; PCP Internal Medicine
DX: R53.1 Weakness (principal); K59.00 Constipation, unspecified; R50.9 Fever, unspecified; N39.0 Urinary tract infection, site not specified; R11.0 Nausea; I10 Essential (primary) hypertension; I25.10 Atherosclerotic heart disease of native coronary artery without angina pectoris; K21.9 Gastro-esophageal reflux disease without esophagitis; Z79.899 Other long term (current) drug therapy
CPT/HCPCS: 0241U; 71250; 74176; 80053; 81001; 83690; 83735; 85025; 96361; 96374; 96376; 97162; 99285; J2405

== ENCOUNTER → 2024-10-05 13:35 | Outpatient (BNV) | payer MEDICARE, OTHER, SELFPAY | PROVIDERS: Emergency Provider Emergency Medicine; PCP Internal Medicine; Visit Provider Radiology Diagnostic Radiology | DX: K57.90 Diverticulosis of intestine, part unspecified, without perforation or abscess without bleeding (principal); K44.9 Diaphragmatic hernia without obstruction or gangrene; N28.1 Cyst of kidney, acquired | CPT/HCPCS: 74176 ==

== ENCOUNTER → 2024-10-06 09:20 | Outpatient (BNV) | payer MEDICARE, OTHER, SELFPAY | PROVIDERS: Emergency Provider Emergency Medicine; PCP Internal Medicine; Visit Provider Radiology Diagnostic Radiology | DX: J98.11 Atelectasis (principal); J90 Pleural effusion, not elsewhere classified | CPT/HCPCS: 71250 ==

== ENCOUNTER 2024-10-29 11:30 | Outpatient (REF) | payer MEDICARE, OTHER, SELFPAY ==
[2024-10-29 16:41] LABS: Appearance Urine Clear; Color Urine Dark Yellow; Glucose Urine UA Negative (Negative); Leukocyte Esterase Urine Negative (Negative); Nitrite Urine Negative (Negative); Specific Gravity - Urine 1.025 (1.005-1.025); Urine Blood Negative (Negative); Urine Ketones Trace mg/dL (Negative); Urine Protein Trace mg/dL (Neg-Trace)
--- OUTSIDE RECORDS SUMMARY | 2024-10-29 17:13 | XMS_ITS ---
Author Organization [facility] Address [address] [place] [address] Care Team Providers Care Information Systems Analyst Name Role Phone Heather CONNORS, Magy Todd Primary Care Provider Un available Bruce Dorsey Unavailable [phone] Encounters Encounter Location Date Provider Diagnosis [address] [address] 08/11/2024 Bruce Dorsey Plan Of Treatment No Information Progress Notes * JACOBS, Jocelyn CONNORSOB: [birth year] (89 yo F)Acc No.[id number]:08/11/2024 Progress Note Patient:Jocelyn FORD Provider:?Bruce Dorsey DPM :1935???Age:88 Y???Sex:Female D ate:08/11/2024 Address:[address] [place] [address] [address], [id number] Pcp:Louie Anderson Subjective: * Chief Complaints: * ??? * Medical History:? Objective: * Vitals:? Assessment: Plan: * Treatment: * Images: * The named appointment provid er may or may not be the originator of this progress note, and it is not deemed complete until electronically signed by the appointment provider. Sign off status: Pending * Provider:?Bruce Dorsey DPM Date:?2023 Generated for Ronaki gerhard/Kinjal/eTransmitting on:?10/29/2024 05:13 PM EST
--- OUTSIDE RECORDS SUMMARY | 2024-10-29 17:13 | XMS_ITS | Patient Health Record ---
Author Organization [facility] Address [address] [place] [address] Care Team Providers Care Production Artist Name Role Phone Heather CONNORS, Magy Primary Care Provider Brian Tam Unavailable [phone] SALOMÓN CHAMPION Unavailable Unavailable Allergies Allergen (clinical drug ingredient) Drug/Non Drug Allergy documented on EMR Reaction Allergy Type Onset Date Status Codeine Phosphate Unknown Drug Allergy Active Reason For Referral No [...] injection Subcutaneo us once a month Active Immunizations Vaccine Route Administration Date Status Comme nts Influenza Unknown 04/26/2016 Administered Influenza Unknown 04/26/2019 Administered Influenza Unknown 04/26/2020 Administered Problems Problem Type SNOMED Code ICD Code Onset Dates Problem Status W/U Status Risk Notes Problem 50423812 Cough (R05) Active confirmed Problem 516953650 Gastroesophageal reflux disease with esophagitis (K21.0) Active confirmed Problem 85686783 Erosive esophagi tis (K22.10) Active confirmed Problem 12394875 Constipation, unspecified constipation type (K59.00) Active confirmed Problem 23552195 Esophagitis (K20.9) Active confirmed Problem 57932512 Lower abdominal pain (R10.30) Active confirmed Plan Of Treatment Pending Test Test Name Order Date XR CHEST 2 VIEW PA & LAT 04/25/2021 Future Test Test Name Order Date UPPER GI ENDOSCOPY 11/13/2016 Insurance Providers Payer Name Payer Address Payer Phone Subscriber Number Group Number Insured Name Patient Relationship to Insured Coverage Start Date Coverage End Date MEDICARE OF [place] [address] [facility] [address] [phone] [id number] JACOBS , HITESH Self - patient is the insured [employer] [address] [place] [address] [id number] FAHAD JACOBSIS Self - patient is the insured Medical (General) History Medical History History ICD Code Colonoscopy 03-10-2010--diver [...] Tremors Elevated cholesterol Degenerative joint disease Denies NV,DM,CVA,Lung disease,renal dise ase Surgical History Surgery Date(Month/Year) Cataracts/lens implants 10/2006
--- OUTSIDE RECORDS SUMMARY | 2024-10-29 17:14 | XMS_ITS ---
Author Organization [facility] Address [address] [place] [address] Care Team Providers Care Filter Cloth Maker Name Role Phone Heather CONNORS, Magy Todd Primary Care Provider Un available Bruce Dorsey Unavailable [phone] Encounters Encounter Location Date Provider Diagnosis [address] [address] 07/31/2024 Bruce Dorsey Plan Of Treatment No Information Progress Notes * JACOBS, Jocelyn CONNORSOB: [birth year] (89 yo F)Acc No.[id number]:07/31/2024 Progress Note Patient:Jocelyn FORD Provider:?Bruce Dorsey DPM :1935???Age:88 Y???Sex:Female D ate:07/31/2024 Address:[address] [place] [address] [address], [id number] Pcp:Louie Anderson Subjective: * Chief Complaints: * [...] DPM Date:?2023 Generated for Ronaki gerhard/Kinjal/eTransmitting on:?10/29/2024 05:14 PM EST
--- OUTSIDE RECORDS SUMMARY | 2024-10-29 17:14 | XMS_ITS | Continuity of Care Document ---
Author Name [facility] Organization [facility] Care Team Providers Care Steward/Stewardess Banquet Name Role Phone [facility] Unavailable Unavailable Medications Combined list of outpatient [...] ORAL, [employer] 100 ea. BOTTLE Active [id number] 2023 90 Pharmac y Data Transac tion Service Facilit y CELECOXIB (celecoxib) , 200 MG, CAPSULE, ORAL, SOLA PHARMACEU, 500 ea. BOTTLE Active [id number] 4 2023 90 Pharmac y Data Transac tion Service Facilit y CELECOXIB (celecoxib) , 200 MG, CAPSULE, ORAL, [employer], 500 ea. BOTTLE Active [id number] 4 2023 90 Pharmac y Data Transac tion Service Facilit y LISINOPRIL (lisinopril ), 2.5 MG, TABLET, ORAL, EXELAN PHARMACE, 500 ea. BOTTLE Active [id number] 4 2023 90 Pharmac y Data Transac tion Service Facilit y LISINOPRIL (lisinopril ), 2.5 MG, TABLET, ORAL, EXELAN PHARMACE, 500 ea. BOTTLE Active [id number] 4 2023 90 Pharmac y Data Transac tion Service Facilit y LISINOPRIL (LISINOPRIL ), 2.5MG, TABLET, ORAL, LUPIN PHARMACEU, 500 ea. BOTTLE Active [id number] 4 2023 90 Pharmac y Data Transac tion Service Facilit y OMEPRAZOLE (omeprazole ), 20 MG, CAPSULE DR, ORAL, [employer], 1000 ea. BOTTLE Active [id number] 4 2023 90 Pharmac y Data Transac tion Service Facilit y OMEPRAZOLE (omeprazole ), 20 MG, CAPSULE DR, ORAL, [employer] Suite, TIME PLUS Q, 1000 ea. BOTTLE Active [id number] 4 2023 90 Pharmac y Data Transac tion Service Facilit y PRIMIDONE (PRIMIDONE) , 50 MG, TABLET, ORAL, AV FAZAL, 500 ea. BOTTLE Cancele d [id number] : 2023 0 Pharmac y Data Transac tion Service Facilit y PRIMIDONE (primidone) , 50 MG, TABLET, ORAL, [employer]ARM, 500 ea. BOTTLE Cancele d [id number] : 2023 0 Pharmac y Data Transac tion Service Facilit y PRIMIDONE (PRIMIDONE) , 50MG, TABLET, ORAL, [employer], 100 ea. BOTTLE Active [id number] 4 2023 270 Pharmac y Data Transac tion Service Facilit y PROPRANOLOL HCL ER (propranolo l HCl), 60 MG, CAP SA 24H, ORAL, [employer], 100 ea. BOTTLE Active [id number] 4 2023 90 Pharmac y Data Transac tion Service Facilit y PROPRANOLOL HCL ER (propranolo l HCl), 60 MG, CAP SA 24H, ORAL, [employer], 100 ea. BOTTLE Active [id number] 4 2023 90 Pharmac y Data Transac tion Service Facilit y PROPRANOLOL HCL ER (propranolo l HCl), 60 MG, CAP SA 24H, ORAL, [employer], 100 ea. BOTTLE Active [id number] 4 2023 90 Pharmac y Data Transac tion Service Facilit y Immunizations Combined list of available immunizations from the Department of Defense and Veterans Affairs facilities. Immunization Series Date Given Administered By Site Reaction Lot Number CVX Code Drug Nuclear Medicine Technician Status Comments Source COVID-19, mRNA, LNP-S, PF, 30 mcg/0.3 mL dose, susana-sucrose 2021 RAM[employer]Z [employer] (PFR) Not Given COVID-19, mRNA, LNP-S, PF, 30 mcg/0.3 mL dose, susana-sucr ose DoD COVID-19, mRNA, LNP-S, PF, 30 mcg/0.3 mL dose 2020 MIRNA, [employer] (PFR) Not Given COVID-19, mRNA, LNP-S, [...]
--- OUTSIDE RECORDS SUMMARY | 2024-10-29 17:14 | XMS_ITS ---
Author Organization [facility] Address [address] [place] [address] Care Team Providers Care Liquefaction Supervisor Name Role Phone Heather CONNORS, Magy Todd Primary Care Provider Un available Bruce Dorsey Unavailable [phone] REASON FOR VISIT no show Encounters Encounter Location Date Provider Diagnosis [address] [address] 08/11/2024 Bruce Dorsey Plan Of Treatment No Information Progress Notes * Jocelyn JACOBS MDOB: [birth year] (88 yo F)Acc No.[id number]:08/11/2024 Patient:?ARLENE Jocelyn Palma :1935???Age:88 Y???Sex:Female Address:[address] [place] [address] [address] [place], [address] * true * Date:? Generated for Ronaki gerhard/Kinjal/eTransmitting on:?10/29/2024 05:13 PM EST
--- OUTSIDE RECORDS SUMMARY | 2024-10-29 17:14 | XMS_ITS | Patient Health Record ---
Author Organization [facility] Address [address] [place] [address] Care Team Providers Care Stoker Erector Name Role Phone Heather CONNORS, Magy Todd Primary Care Provider Un available Bruce Dorsey Unavailable [phone] Allergies Allergen (clinical drug ingredient) Drug/Non Drug [...] Problem Status W/U Status Risk Notes Problem 46653188 Age-related osteoporosis without current pathological fracture (M81.0) Active confirmed Problem [id number] Atherosclerosis of huslia artery of both lower extremities, with unspecified presence of clinical manifestation (I70.203) Active confirmed Vital Signs Blood pressure diastolic 70 mm Hg 05/05/2024 Height 5 ft 4 in in 05/05/2024 Blood pressure systolic 120 mm Hg 05/05/2024 Weight 135 lbs 05/05/2024 BMI 23.17 kg/m2 05/05/2024 Procedures Procedure Date Ordered Date Performed Result Body Sit e 35148-QUVZARI NAIL, 6 OR MORE 12/03/2023 N/A 74643-Poloobyg Plate 12/03/2023 N/A 93805-KTYO SKIN LESIONS, OVER 4 12/03/2023 N/A 41254-LSSCONE NAIL, 6 OR MORE 02/25/2024 N/A 23099-Xqkdskge Plate 02/25/2024 N/A 29164-ISII SKIN LESIONS, OVER 4 02/25/2024 N/A 18784-NHBDYFB NAIL, 6 OR MORE 05/05/2024 N/A 56316-RTSY SKIN LESIONS, OVER 4 05/05/2024 N/A Encounters Encounter Location Date Provider Diagnosis [facility] [address] [place] [address] 12/03/2023 Bruce Dorsey Atherosclerosis of huslia artery of both lower extremities, with unspecified presence of clinical manifestation I70.203 ; Tinea unguium B35.1 ; Pain in right toe(s) M79.674 ; Pain in left toe(s) M79.675 and Ingrown nail L60.[address] [address] 02/25/2024 Bruce Dorsey Atherosclerosis of huslia artery of both lower extremities, with unspecified presence of clinical manifestation I70.203 ; Tinea unguium B35.1 ; Pain in right toe(s) M79.674 ; Pain in left toe(s) M79.675 and Ingrown nail L60.[address] [address] 05/05/2024 Bruce Dorsey Atherosclerosis of huslia artery of both lower extremities, with unspecified presence of clinical manifestation I70.203 ; Tinea unguium B35.1 ; Pain in right toe(s) M79.674 and Pain in left toe(s) M79.[address] [address] 05/05/2024 Bruce Dorsey [address] [address] 07/29/2024 Bruce Sunita [address] [address] 08/11/2024 Bruce Dorsey Assessments Encounter Date Diagnosis (ICD Code) Assessment Notes Treatment Notes Treatment Clinical Notes Section Notes 12/03/2023 Tinea unguium (ICD-10 - B35.1) 12/03/2023 Atherosclerosis of huslia artery of both lower extremities, with unspecified presence of clinical manifestation (ICD-10 - I70.203) 02/25/2024 Tinea unguium (ICD-10 - B35.1) 02/25/2024 Atherosclerosis of huslia artery of both lower extremities, with unspecified presence of clinical manifestation (ICD-10 - I70.203) 05/05/2024 Tinea unguium (ICD-10 - B35.1) 05/05/2024 Atherosclerosis of huslia artery of both lower extremities, with unspecified [...] X ray : Foot, right 3V 12/28/2022 98477-BHDTCTI NAIL, 6 OR MORE 02/05/2023 35116-UZRTCVW NAIL, 6 OR MORE 11/13/2022 44842-WRZFRTA NAIL, 6 OR MORE 04/16/2023 25602-RMLVSOV NAIL, 6 OR MORE 07/02/2023 50241-RXKIIMY NAIL, 6 OR MORE 09/20/2023 67058-SUDMAWZ NAIL, 6 OR MORE 12/03/2023 60299-MNGTBRJ NAIL, 6 OR MORE 02/25/2024 65178-SHXGGIR NAIL, 6 OR MORE 05/05/2024 18264-DYPZAPL NAIL, 6 OR MORE 10/16/2011 91836-PQUGSUH NAIL, 6 OR MORE 01/15/2012 38215-PQIPNTI NAIL, 6 OR MORE 04/22/2012 49945-QRETZOD NAIL, 6 OR MORE 07/22/2012 63708-ZMEOXFC NAIL, 6 OR MORE 10/07/2012 06413-CTPJTUK NAIL, 6 OR MORE 12/30/2012 18247-TVTXFXV NAIL, 6 OR MORE 03/31/2013 03788-BJLAEYM NAIL, 6 OR MORE 06/30/2013 05195-BWMFAAI NAIL, 6 OR MORE 10/06/2013 79975-YVBQSSD NAIL, 6 OR MORE 01/05/2014 34523-XFLWDSI NAIL, 6 OR MORE 07/06/2014 67663-WAFQIWL NAIL, 6 OR MORE 10/26/2014 81497-AGEZUSK NAIL, 6 OR MORE 01/04/2015 58604-OOEVBFY NAIL, 6 OR MORE 04/05/2015 38602-THOBOKA NAIL, 6 OR MORE 06/14/2015 32362-WPYJMWS NAIL, 6 OR MORE 04/02/2014 37153-BKCNMPN NAIL, 6 OR MORE 09/06/2015 47001-EHNRDAY NAIL, 6 OR MORE 12/02/2015 01329-KALWYZW NAIL, 6 OR MORE 02/10/2016 50687-RWDKROX NAIL, 6 OR MORE 04/13/2016 76730-WPMHSVK NAIL, 6 OR MORE 06/22/2016 38069-XFFOMEA NAIL, 6 OR MORE 09/04/2016 17212-UZBKWSX NAIL, 6 OR MORE 11/16/2016 60585-PEFDDVI NAIL, 6 OR MORE 01/29/2017 97708-MCLRGAN NAIL, 6 OR MORE 04/12/2017 48740-BKEOWAA NAIL, 6 OR MORE 06/25/2017 27198-EHSMXQE NAIL, 6 OR MORE 09/03/2017 24009-XDVAKOM NAIL, 6 OR MORE 11/08/2017 67312-LSNUTWM NAIL, 6 OR MORE 01/10/2018 91136-UATNEZN NAIL, 6 OR MORE 03/25/2018 87121-BTNDUFF NAIL, 6 OR MORE 05/27/2018 10065-XONPPLN NAIL, 6 OR MORE 09/09/2018 09064-QOPPVNM NAIL, 6 OR MORE 12/05/2018 56091-WLNTXBU NAIL, 6 OR MORE 02/24/2019 65176-UDZFKIZ NAIL, 6 OR MORE 05/29/2019 22972-EYKLSJF NAIL, 6 OR MORE 08/04/2019 17608-PGLHMOD NAIL, 6 OR MORE 11/10/2019 13872-FSWESYN NAIL, 6 OR MORE 02/02/2020 07005-LNGRPFD NAIL, 6 OR MORE 04/12/2020 08474-OFJIJYH NAIL, 6 OR MORE 06/24/2020 86339-CKEYKJN NAIL, 6 OR MORE 09/13/2020 10001-XKLPWTV NAIL, 6 OR MORE 12/20/2020 73023-RUTTLCA NAIL, 6 OR MORE 02/28/2021 69154-YPVRNUT NAIL, 6 OR MORE 05/16/2021 11496-DHBAMMI NAIL, 6 OR MORE 09/15/2021 35312-BEVFOGK NAIL, OR MORE 11/17/2021 76931-AIVQMQZ NAIL, OR MORE 02/02/2022 55212-IPIDKVU NAIL, OR MORE 04/24/2022 61988-WDSCBVA NAIL, 6 OR MORE 07/06/2022 69130-FEILBQY NAIL, OR MORE 09/11/2022 27647-Wzzinzrg Plate 06/01/2022 13356-Oczsulwd Plate 09/11/2022 94497-Fygxcxkb Plate 04/24/2022 50526-Qeghzhvv Plate 02/02/2022 47409-Vuvzzhyt Plate 11/17/2021 42441-Terfyvce Plate 09/15/2021 46541-Elrhktgu Plate 05/16/2021 47742-Ubzfomoi Plate 02/28/2021 31211-Clqxpzuz Plate 12/20/2020 55462-Vhsnotlz Plate 09/13/2020 11093-Spfanawg Plate 06/24/2020 27820-Sufogdjg Plate 10/07/2012 35567-Oljvxtya Plate 04/12/2020 60088-Wsjjrfmi Plate 02/02/2020 29672-Mbmcdqeh Plate 11/10/2019 08981-Slbvzhma Plate 12/05/2018 48887-Ydlmmgxz Plate 09/09/2018 01713-Emjkszdm Plate 05/27/2018 67895-Kyxjqtuq Plate 01/10/2018 65075-Vpadohuy Plate 04/12/2017 97630-Lljpaydq Plate 09/04/2016 98713-Qlwnotvl Plate 09/06/2015 24041-Egupblxd Plate 04/02/2014 34927-Fschxvho Plate 06/14/2015 59420-Jeoosnnx Plate 04/05/2015 13137-Yvpngybc Plate 01/04/2015 91784-Xfasohxg Plate 10/26/2014 37486-Erwettnv Plate 07/06/2014 76168-Nidymonh Plate 06/30/2013 90942-Wecxmuvy Plate 01/15/2012 37946-Dvrovvkk Plate 02/25/2024 24947-Kenariee Plate 12/03/2023 08424-Zpuyafbk Plate 07/02/2023 07778-Tvvpnvpr Plate 04/16/2023 82000-Uqprsrsb Plate 11/13/2022 34900-Mgqcvick Plate 02/05/2023 62606-Ggaqksdr Plate Each Additional 10/2014 78463-Wxgvrexs Plate Each Additional 07/2015 85911-Rlxcpwfb Plate Each Additional 06/2015 52480-Wblywnzg Plate Each Additional 73215-Tsybytia Plate Each Additional 07/2019 36057-Rdhfdpec Plate Each Additional 74978-Methpmlk Plate Each Additional 15807-Aawzknod Plate Each Additional 38796-Nkdzfihu Plate Each Additional 01/2021 11598-Dhodqmzu Plate Each Additional 63829-Qhairjcj Plate Each Additional 13777-Bnrmpwmv Plate Each Additional 61678-Rhakjcwg Plate Each Additional 05/2022 06626 I&D ABSCESS- SIMPLE,SINGLE 014 88367 I&D ABSCESS- SIMPLE,SINGLE 012 94169 I&D ABSCESS- SIMPLE,SINGLE 023 11660-BCQB SKIN LESIONS, OVER 4 05/05/20 24 30007-JYRM SKIN LESIONS, OVER 4 02/06/20 23 65065-EDTZ SKIN LESIONS, OVER 4 11/14/19 23 10444-IDHB SKIN LESIONS, OVER 4 04/16/20 23 40228-QLEP SKIN LESIONS, OVER 4 07/02/20 23 78102-DBRN SKIN LESIONS, OVER 4 09/20/19 24 43563-MPVH SKIN LESIONS, OVER 4 12/03/19 24 49325-VJAU SKIN LESIONS, OVER 4 02/25/20 24 45383-UHII SKIN LESIONS, OVER 4 09/04/19 17 56297-QKKC SKIN LESIONS, OVER 4 11/17/19 17 77484-IQLB SKIN LESIONS, OVER 4 01/30/20 17 93008-XXJX SKIN LESIONS, OVER 4 06/22/20 16 63258-YEIR SKIN LESIONS, OVER 4 04/13/20 16 56909-NVGC SKIN LESIONS, OVER 4 04/12/20 17 69759-WABX SKIN LESIONS, OVER 4 06/25/20 17 42817-IFMG SKIN LESIONS, OVER 4 11/09/19 18 14097-LGXQ SKIN LESIONS, OVER 4 09/03/19 18 35142-FNMK SKIN LESIONS, OVER 4 02/03/20 22 96983-CWDS SKIN LESIONS, OVER 4 11/18/19 33785-MTSI SKIN LESIONS, OVER 4 04/24/20 79873-WSUI SKIN LESIONS, OVER 4 07/06/20 31477-GQJC SKIN LESIONS, OVER 4 09/11/19 23 13546-DMHP SKIN LESIONS, OVER 4 09/15/19 07273-LYVT SKIN LESIONS, OVER 4 05/16/20 50780-IJUJ SKIN LESIONS, OVER 4 02/29/20 68920-CLNX SKIN LESIONS, OVER 4 12/21/19 44988-VEPF SKIN LESIONS, OVER 4 09/13/19 02209-YKZM SKIN LESIONS, OVER 4 06/24/20 17760-FFSK SKIN LESIONS, OVER 4 11/10/19 25739-VSIS SKIN LESIONS, OVER 4 08/04/20 73103-ERCD SKIN LESIONS, OVER 4 02/02/20 76049-FTNC SKIN LESIONS, OVER 4 04/12/20 42641-SMLF SKIN LESIONS, OVER 4 12/06/19 19 90701-QFZM SKIN LESIONS, OVER 4 05/29/20 19 42554-TGRU SKIN LESIONS, OVER 4 02/25/20 19 31189-XHUT SKIN LESIONS, OVER 4 01/11/20 18 07766-XLTA SKIN LESIONS, OVER 4 03/25/20 18 83001-YHKU SKIN LESIONS, OVER 4 05/27/20 18 79982-NICL SKIN LESIONS, OVER 4 09/09/19 19 42449-LFHB SKIN LESIONS, 2 TO 4 06/14/20 15 73274-FQJZ SKIN LESIONS, 2 TO 4 04/05/20 15 63777-NIRI SKIN LESIONS, 2 TO 4 04/02/20 14 27974-LOYA SKIN LESIONS, 2 TO 4 09/06/19 16 46277-ZTMO SKIN LESIONS, 2 TO 4 02/10/20 16 42365-SRXX SKIN LESIONS, 2 TO 4 12/02/19 16 45063-FHPI SKIN LESIONS, 2 TO 4 01/15/20 12 53704-YTBR SKIN LESIONS, 2 TO 4 07/22/20 12 23036-JHLR SKIN LESIONS, 2 TO 4 04/22/20 12 30475-RMEG SKIN LESIONS, 2 TO 4 06/30/20 13 48719-FJRK SKIN LESIONS, 2 TO 4 03/31/20 13 92470-ZUTF SKIN LESIONS, 2 TO 4 12/31/19 13 89170-ONSC SKIN LESIONS, 2 TO 4 10/07/19 13 86609-LMGH SKIN LESIONS, 2 TO 4 07/06/20 14 96440-RAIP SKIN LESIONS, 2 TO 4 01/06/20 14 99917-LLQU SKIN LESIONS, 2 TO 4 10/06/19 14 77761-IIFP SKIN LESIONS, 2 TO 4 01/05/20 15 57239-AJUY SKIN LESIONS, 2 TO 4 10/27/19 15 Insurance Providers Payer Name Payer Address Payer Phone Subscriber Number Group Number Insured Name Patient Relationship to Insured Coverage Start Date Coverage End Date Medicare National [employer] [address] [place] [address] [id number] Jocelyn Mejia Self - patient is the insured 2 [employer] [address] [place] [address] [id number] Brandon Mejia Spouse - patient is the spouse of the insured Medical (General) History Medical History History ICD Code Arthritis back pain Cholesterol Hiatal hernia osteoporosis reflux hypertension ASO/PVD Arthritis - Degenerative Surgical History Surgery Date(Month/Year) Hospitalization History Reason Date(Month/Year) [facility] Acid reflux 09/08-09/12 [facility]- Flu 10/15
== END 2024-10-29 11:31 | disposition home or self-care (01) ==
LOC: HO.HMGCLNP 11:30
PROVIDERS: PCP Internal Medicine; Visit Provider Internal Medicine
DX: R39.15 Urgency of urination (principal)
CPT/HCPCS: 81003

== ENCOUNTER 2024-11-05 11:10 | Outpatient (AMB) | payer MEDICARE, OTHER, SELFPAY ==
--- NOTE | 2024-11-05 11:32 | A.OFFPC_ITS ---
Vital Signs 11/05/24 11:43 Height 5 ft 2 in Weight 121 lb BMI 22.1 BP 100/70 Blood Pressure Location Rt brachial Position Sitting Respiration 16 Pulse 75 Pulse Source Pulse Oximeter Temp 97.1 F Temp Source Oral Pulse Oximetry (%) 98 Oxygen Delivery Method Room Air Intake Visit Reasons: weakness/constipation Intake Note: Pt is here today HDF weakness [facility] Allergies No Known Allergies Allergy (Verified 11/05/24 11:51) Medication List - Last Reconciled 11/05/24 by Magy Romero MD acetaminophen (Tylenol Extra Strength) 1,000 mg PO BID PRN buspirone 7.5 mg PO BEDTIME calcium carbonate 500 mg PO DAILY cyanocobalamin (vitamin B-12) 1,000 mcg IM Q4W denosumab (Prolia) 60 mg subcut [id number] furosemide 20 mg PO DAILY PRN lisinopril 2.5 mg PO DAILY miscellaneous medical supply Elevated toilet seat with handles omeprazole 20 mg PO DAILY primidone 100 mg (2 x 50 mg) PO BID propranolol ER 60 mg PO DAILY Tobacco use date assessed: 11/05/24 Fall risk assessment: No Falls in past year Last assessed Fall Risk: 11/05/24 Dental Screening Dental Screen Date: 11/05/24 Did you have a dental visit in the last 12 months?: No Did you have a dental problem in the last 6 months where you did not have access to dental care?: No Was dental information given to patient?: No PFSH Medical History (Updated 11/05/24 @ 12:12 by Magy Romero MD) History of constipation Altered bowel habits COVID-19 Vitamin B12 deficiency Osteoarthritis, hip, bilateral Dextroscoliosis of thoracolumbar spine Facial skin lesion Generalized anxiety disorder Dyspnea on exertion Left bundle branch block Chronic right hip pain Acquired renal cyst of left kidney 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 Mother Arthritis Son No problems noted. Daughter No problems noted. Brother No problems noted. Social History Housing: Condominium Alcohol intake: former Patient Tobacco Use Status: Never used Tobacco Tobacco use type: Cigarette e-Cigarette/Vaping Use: Never Used Second Hand Smoke Exposure: Yes Advance Directives Date on File: 03/11/24 service: No Current occupational status: retired Current occupation: Retired Cognitive needs: No Hearing needs: No Vision needs: Yes Questionnaire Thrive Questionnaire Date Thrive assessed: 08/31/24 I am a: Patient What is your living situation today?: I choose not to answer this question Within the past 12 months, did the food you bought not last and you didn't have the money to get more?: I choose not to answer this question Within the past 12 months, did you worry whether your food would run out before you got money to buy more?: I choose not to answer this question Do you have trouble paying for medicines?: I choose not to answer this question Do you have trouble getting transportation to medical appointments?: I choose not to answer this question Do you have trouble paying your heating and electricity bill?: I choose not to answer this question Do you have trouble taking care of your child, family member or friend?: I choose not to answer this question Do you have trouble with day-to-day activities such as bathing, preparing meals, shopping, managing finances, etc.?: I choose not to answer this question Are you currently unemployed and looking for a job?: I choose not to answer this question Are you interested in more education?: I choose not to answer this question Please select the resources that you would like help with: None Currently or been in a relationship where the following occur: I choose not to answer THRIVE Score: 0 MICHAEL-7 AMB Questionnaire MICHAEL-7 Date MICHAEL - 7 assessed: 08/31/24 Source: Developed by Drs. Brian Gomez, Peg Reyez, John Saucedo and colleagues, with an educational tati from [employer] Physical exam (Primary Care) Vital Signs: Last Vital Signs Temp 97.1 F 11/05/24 11:43 Pulse 75 11/05/24 11:43 Resp 16 11/05/24 11:43 BP 100/70 11/05/24 11:43 Pulse Ox 98 11/05/24 11:43 Oxygen Delivery Method Room Air 11/05/24 11:43 BMI result Body Mass Index 22.1 Tobacco/Smoking Status: Tobacco use Status Tobacco use date assessed 11/05/24 11/05/24 11:47 Patient Tobacco Use Status Never used Tobacco 11/05/24 11:34 Tobacco use type Cigarette 11/05/24 11:34 e-Cigarette/Vaping Use Never Used 11/05/24 11:34 Thrive Assessment: Date of Thrive Assessment Date Thrive assessed 08/31/24 11/05/24 11:34 Currently or been in a relationship where the following occur: I choose not to answer Office Meds cyanocobalamin (vitamin B-12) 1,000 mcg/mL injection solution Performing Provider: Magy Romero MD Performing Location: [facility] Administered by: Candice Quevedo RN on 11/05/24 12:20 Dose Route Admin Location Dispensed Lot Number Expiration Date [facility] Passport Application Examiner 1,000 mcg IM right deltoid 1 mL [id number] 01/24/27 86235-958-80 SIMA STARKS Comments: Pt supplied Results Reviewed Results Reviewed: Name: Jocelyn Mejia Age/Sex: 88/F : 1935 Unit#: [id number] Attend Dr: Erica Mills MD Re10/05/24 Status: DEP ER [facility] Disch: SPEC : [id number] ATYLOR: 10/05/24 STATUS: COMP REQ : [id number] RECD: 10/05/[address]: Delmis Gonzalez COMP: 10/05/24 ENTERED: 10/05/[address]: ORDERED: CBC Auto Diff Test Result Flag Reference WBC 10.7 4.8-10.8 X10*3/uL RBC 3.32 L 4.20-5.50 X10*6/uL HGB 10.7 L 12.0-16.0 g/dl HCT 32.9 L 37.0-47.0 % MCV 99.1 H 80.0-98.0 fL MCH 32.2 27.0-33.0 pg MCHC 32.5 31.0-35.0 g/dl RDW 12.7 11.0-16.0 % PLT 246 160-400 X10*3/uL MPV 10.3 9.4-12.3 fL Neut Pct Auto 78.7 H 45-73 % ImGran Pct Auto 0.6 H 0.0-0.4 % Lymp Pct Auto 11.1 L 20-40 % Borden Pct Auto 9.3 2-11 % Eos Pct Auto 0.1 0-4 % Baso Pct Auto 0.2 0-2 % NRBC Pct Auto 0.0 0.0-0.2 /100WBC ANC Neut Abs # 8.4 H 2.0-8.3 x10*3/uL ImGran Abs Auto 0.06 H 0.00-0.03 X10*3/uL Lymph Abs Auto 1.2 1.2-4.9 X10*3/uL Borden Abs Auto 1.0 0.1-1.2 X10*3/uL Eos Abs Auto 0.0 0.0-0.4 X10*3/uL Baso Abs Auto 0.0 0.0-0.2 X10*3/uL NRBC Abs Auto 0.000 0.0-0.012 X10*3/uL Name: Jocelyn Mejia Age/Sex: 88/F : 1935 Unit#: [id number] Attend Dr: Erica Mills MD Re10/05/24 Status: DEP ER Location: [facility] Disch: SPEC : [id number] TAYLOR: 10/05/24 STATUS: COMP REQ : [id number] RECD: 10/05/[address]: Delmis Gonzalez COMP: 10/05/24160 ENTERED: 10/05/24-[address]: ORDERED: CMP, MG, Lip Test Result Flag Reference Sodium 140 135-145 mmol/L Potassium 4.0 3.3-5.1 mmol/L CL 106 96-108 mmol/L CO2 24 22-29 mmol/L Gap 14 12-20 BUN 21 H 9-16 mg/dL Creat 0.79 0.5-1.4 mg/dL Estimated CrCl 45.1 Provided height and weight: 165.1 cm, 59.9 kg. eGFR (calculated from the MDRD study equation) and eCrCl (calculated from the Cockcroft-Gault equation) are based on different parameters and may not yield comparable results. If eCrCl result is absurd, please check patient's height/weight. eGFR > 60 Chronic Kidney Disease: Estimated GFR < 60 mL/min/1.73m2 Severe Kidney Disease: Estimated GFR < 15 mL/min/1.73m2 Glucose, Random 89 60-115 mg/dL CA 8.9 8.4-10.2 mg/dL Magnesium 1.8 1.6-2.6 mg/dL Total Bili 0.3 0.0-1.0 mg/dL AST (GOT) 15 5-31 U/L ALT (GPT) < 6 0-31 U/L Protein, Total 6.5 6.5-8.0 g/dL Alb 3.1 L 3.5-5.0 g/dL Alk Phos 40 39-117 U/L Lipase 24 8-78 U/L Coding Diagnoses History of constipation Z87.19 Vitamin B12 deficiency E53.8 Complex renal cyst N28.1 Essential hypertension I10 Generalized anxiety disorder F41.1 Assessment & Plan Assessment & Plan (1) History of constipation: Code(s): Z87.19 - Personal history of other diseases of the digestive system Category: Medical (2) Vitamin B12 deficiency: Code(s): E53.8 - Deficiency of other specified B group vitamins Category: Medical (3) Complex renal cyst: Code(s): N28.1 - Cyst of kidney, acquired Category: Medical (4) Essential hypertension: Code(s): I10 - Essential (primary) hypertension Category: Medical (5) Generalized anxiety disorder: Code(s): F41.1 - Generalized anxiety disorder Category: Medical Orders: Orders AMB Vitamin B12 Injection Patient Supplied Today E53.8 - Deficiency of other specified B group vitamins Medications: New cyanocobalamin (vitamin B-12) 1,000 mcg IM ONCE 1 mL 0RF E53.8 - Deficiency of other specified B group vitamins
[2024-11-05 11:43] VITALS: BP 100/70; PULSE 75; RESP 16; TEMP 36.2; O2SAT 98; BMI 22.1
--- OUTSIDE RECORDS SUMMARY | 2024-11-05 14:22 | XMS_ITS ---
Author Organization [facility] Address [address] [place] [address] Care Team Providers Care Academic Records Specialist Name Role Phone Heather CONNORS, Magy Todd Primary Care Provider Un available Bruce Dorsey Unavailable [phone] Encounters Encounter Location Date Provider Diagnosis [address] [address] 08/11/2024 Bruce Dorsey Plan Of Treatment No Information Progress Notes * JACOBS, Jocelyn CONNORSOB: 937 (89 yo F)Acc No.[id number]:08/11/2024 Progress Note Patient:Jocelyn FORD Provider:?Bruce Dorsey DPM :1935???Age:88 Y???Sex:Female D ate:08/11/2024 Address:[address] [place] [address] [address] [id number] Pcp:Louie Anderson Subjective: * Chief Complaints: * ??? * Medical History:? Objective: * Vitals:? Assessment: Plan: * Treatment: * Images: * The named appointment provid er may or may not be the originator of this progress note, and it is not deemed complete until electronically signed by the appointment provider. Sign off status: Pending * Provider:Mackenzie Dorsey DPM Date:?2023 Generated for Ronaki gerhard/Kinjal/eTransmitting on:?11/05/2024 02:21 PM EDT
--- OUTSIDE RECORDS SUMMARY | 2024-11-05 14:22 | XMS_ITS ---
Author Organization [facility] Address [address] [place] [address] Care Team Providers Care Director Of Instruction Name Role Phone Heather CONNORS, Magy Todd Primary Care Provider Un available Bruce Dorsey Unavailable [phone] Encounters Encounter Location Date Provider Diagnosis [address] [address] 07/31/2024 Bruce Dorsey Plan Of Treatment No Information Progress Notes * JACOBS, Jocelyn CONNORSOB: 937 (89 yo F)Acc No.[id number]:07/31/2024 Progress Note Patient:Jocelyn FORD Provider:?Bruce Dorsey DPM :1935???Age:88 Y???Sex:Female D ate:07/31/2024 Address:[address] [place] [address] [address] [id number] Pcp:Louie Anderson Subjective: * Chief Complaints: * [...] DPM Date:?2023 Generated for Ronaki gerhard/Kinjal/eTransmitting on:?11/05/2024 02:22 PM EDT
--- OUTSIDE RECORDS SUMMARY | 2024-11-05 14:22 | XMS_ITS | Patient Health Record ---
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, with unspecified presence of clinical manifestation (I70.203) Active confirmed Vital Signs Blood pressure diastolic 70 mm Hg 05/05/2024 Height 5 ft 4 in in 05/05/2024 Blood pressure systolic 120 mm Hg 05/05/2024 Weight 135 lbs 05/05/2024 BMI 23.17 kg/m2 05/05/2024 Procedures Procedure Date Ordered Date Performed Result Body Sit e 97183-TEHJMTY NAIL, 6 OR MORE 12/03/2023 N/A 73023-Nkybcltk Plate 12/03/2023 N/A 67486-IRLM SKIN LESIONS, OVER 4 12/03/2023 N/A 16743-QILSSKW NAIL, 6 OR MORE 02/25/2024 N/A 23508-Bvfgmukv Plate 02/25/2024 N/A 57576-WBKP SKIN LESIONS, OVER 4 02/25/2024 N/A 57443-AHXJFIT NAIL, 6 OR MORE 05/05/2024 N/A 63744-NAVI SKIN LESIONS, OVER 4 05/05/2024 N/A Encounters Encounter Location Date Provider Diagnosis [facility] [address] [place] [address] 12/03/2023 Bruce Dorsey 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, with unspecified presence of clinical manifestation I70.203 ; Tinea unguium B35.1 ; Pain in right toe(s) M79.674 ; Pain in left toe(s) M79.675 and Ingrown nail L60.[address] [address] 02/25/2024 Bruce Dorsey 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, with unspecified presence of clinical manifestation I70.203 ; Tinea unguium B35.1 ; Pain in right toe(s) M79.674 ; Pain in left toe(s) M79.675 and Ingrown nail L60.[address] [address] 05/05/2024 Bruce Dorsey 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, with unspecified presence of clinical manifestation I70.203 ; Tinea unguium B35.1 ; Pain in right toe(s) M79.674 and Pain in left toe(s) M79.[address] [address] 05/05/2024 Bruce Dorsey [address] [address] 07/29/2024 Bruce Sunita [address] [address] 08/11/2024 Bruce Dorsey Assessments Encounter Date Diagnosis (ICD Code) Assessment Notes Treatment Notes Treatment Clinical Notes Section Notes 12/03/2023 Tinea unguium (ICD-10 - B35.1) 12/03/2023 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, with unspecified presence of clinical manifestation (ICD-10 - I70.203) 02/25/2024 Tinea unguium (ICD-10 - B35.1) 02/25/2024 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, with unspecified presence of clinical manifestation (ICD-10 - I70.203) 05/05/2024 Tinea unguium (ICD-10 - B35.1) 05/05/2024 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, with unspecified [...] X ray : Foot, right 3V 12/28/2022 62055-TVIVCZC NAIL, 6 OR MORE 02/05/2023 06443-TUFSERX NAIL, 6 OR MORE 11/13/2022 06032-TOBUZLB NAIL, 6 OR MORE 04/16/2023 97795-XLRGYUN NAIL, 6 OR MORE 07/02/2023 09414-GZQPLVD NAIL, 6 OR MORE 09/20/2023 23096-KJRHFRC NAIL, 6 OR MORE 12/03/2023 26669-NSQQFZH NAIL, 6 OR MORE 02/25/2024 18864-UJTCHSP NAIL, 6 OR MORE 05/05/2024 14529-MCWRQWQ NAIL, 6 OR MORE 10/16/2011 86331-BTHIWGZ NAIL, 6 OR MORE 01/15/2012 93889-FHJETQL NAIL, 6 OR MORE 04/22/2012 33530-PWZXHCN NAIL, 6 OR MORE 07/22/2012 52824-IHQGMAL NAIL, 6 OR MORE 10/07/2012 47293-GLDCXYU NAIL, 6 OR MORE 12/30/2012 72082-BRWFJLF NAIL, 6 OR MORE 03/31/2013 59296-XVQSRHR NAIL, 6 OR MORE 06/30/2013 73377-NPTDZNV NAIL, 6 OR MORE 10/06/2013 43078-MNGWOER NAIL, 6 OR MORE 01/05/2014 06481-GOFBFXB NAIL, 6 OR MORE 07/06/2014 15821-EDTEJCQ NAIL, 6 OR MORE 10/26/2014 30058-TGAEXTK NAIL, 6 OR MORE 01/04/2015 99430-MQCWZCF NAIL, 6 OR MORE 04/05/2015 94732-VFWFWWA NAIL, 6 OR MORE 06/14/2015 92715-PEFHZIX NAIL, 6 OR MORE 04/02/2014 87178-GCCSRUD NAIL, 6 OR MORE 09/06/2015 34858-GFAADUH NAIL, 6 OR MORE 12/02/2015 85183-EHXXJLT NAIL, 6 OR MORE 02/10/2016 20654-NOWKCZV NAIL, 6 OR MORE 04/13/2016 26319-FQPDTIR NAIL, 6 OR MORE 06/22/2016 69955-HUVQOWC NAIL, 6 OR MORE 09/04/2016 92611-WAATVBR NAIL, 6 OR MORE 11/16/2016 87453-CNFHTPJ NAIL, 6 OR MORE 01/29/2017 42673-TWYBKEC NAIL, 6 OR MORE 04/12/2017 27127-WCYYFRW NAIL, 6 OR MORE 06/25/2017 18937-RSPDCWZ NAIL, 6 OR MORE 09/03/2017 80359-EXLTYJO NAIL, 6 OR MORE 11/08/2017 62106-LMJZXXT NAIL, 6 OR MORE 01/10/2018 88716-KINKHNT NAIL, 6 OR MORE 03/25/2018 38304-HJGPQRO NAIL, 6 OR MORE 05/27/2018 08222-QUXELWZ NAIL, 6 OR MORE 09/09/2018 57629-CMPCFHJ NAIL, 6 OR MORE 12/05/2018 46090-HGZTWGE NAIL, 6 OR MORE 02/24/2019 90107-THHEQCW NAIL, 6 OR MORE 05/29/2019 71421-QVWXSMG NAIL, 6 OR MORE 08/04/2019 82799-RVBPXUR NAIL, 6 OR MORE 11/10/2019 99279-JOFYAUU NAIL, 6 OR MORE 02/02/2020 70034-RXAVAPK NAIL, 6 OR MORE 04/12/2020 04392-TLEZPWW NAIL, 6 OR MORE 06/24/2020 08992-GEYTVLI NAIL, 6 OR MORE 09/13/2020 29637-XYAEVKX NAIL, 6 OR MORE 12/20/2020 31163-QNBLFWP NAIL, 6 OR MORE 02/28/2021 10276-YZKXHSV NAIL, 6 OR MORE 05/16/2021 89063-ENBSYVU NAIL, 6 OR MORE 09/15/2021 02424-DTOBDDC NAIL, OR MORE 11/17/2021 31361-PTMYTCN NAIL, OR MORE 02/02/2022 13210-SEDBCHV NAIL, OR MORE 04/24/2022 92896-EERGKOB NAIL, 6 OR MORE 07/06/2022 51345-QIHDJSG NAIL, OR MORE 09/11/2022 33226-Wvkmgukf Plate 06/01/2022 62979-Zskadjvz Plate 09/11/2022 43098-Bmzpunjz Plate 04/24/2022 30880-Jgfujcya Plate 02/02/2022 62864-Okethvum Plate 11/17/2021 90977-Qquimjgf Plate 09/15/2021 43242-Ncfmpbhm Plate 05/16/2021 75056-Abbqytwf Plate 02/28/2021 44234-Afyvymmf Plate 12/20/2020 48959-Awfmxyqt Plate 09/13/2020 77995-Aormpiby Plate 06/24/2020 17007-Uxmqexbm Plate 10/07/2012 69021-Jlxuasgu Plate 04/12/2020 27213-Evrhthiv Plate 02/02/2020 59273-Fujkmfsw Plate 11/10/2019 54391-Rkrulygf Plate 12/05/2018 78450-Pdzjxuyr Plate 09/09/2018 42228-Vknbjwcy Plate 05/27/2018 17201-Kkohpmal Plate 01/10/2018 89395-Sllolaay Plate 04/12/2017 51019-Ypppablg Plate 09/04/2016 56302-Uzcxykjv Plate 09/06/2015 14859-Xpcceekk Plate 04/02/2014 67864-Wodkpeuq Plate 06/14/2015 44167-Htjieeqd Plate 04/05/2015 08813-Atstmxhx Plate 01/04/2015 84764-Umohicrl Plate 10/26/2014 48289-Ufslynat Plate 07/06/2014 20148-Qugvhidg Plate 06/30/2013 27885-Flphpwpk Plate 01/15/2012 51944-Nqaxitdc Plate 02/25/2024 91864-Zofsrfuz Plate 12/03/2023 43515-Rzkuviux Plate 07/02/2023 86066-Oqsimkdm Plate 04/16/2023 34415-Dakqkymi Plate 11/13/2022 66709-Jwdolddw Plate 02/05/2023 21707-Zyebchwt Plate Each Additional 10/2014 76717-Dwbgyqun Plate Each Additional 07/2015 72260-Prwflxov Plate Each Additional 06/2015 58486-Kkgcmjss Plate Each Additional 16959-Jjfodihq Plate Each Additional 07/2019 01942-Tzomrjsl Plate Each Additional 25722-Ovxxkfru Plate Each Additional 61148-Qeaxpggh Plate Each Additional 09517-Bnqjeihp Plate Each Additional 01/2021 54649-Mwdjgipw Plate Each Additional 98348-Qbktbzju Plate Each Additional 90378-Vtgxpfkf Plate Each Additional 25509-Tfhwsxax Plate Each Additional 05/2022 58381 I&D ABSCESS- SIMPLE,SINGLE 014 30830 I&D ABSCESS- SIMPLE,SINGLE 012 47598 I&D ABSCESS- SIMPLE,SINGLE 023 48246-IEJE SKIN LESIONS, OVER 4 05/05/20 24 67686-FVTI SKIN LESIONS, OVER 4 02/06/20 23 24752-FHIA SKIN LESIONS, OVER 4 11/14/19 23 82548-IJYS SKIN LESIONS, OVER 4 04/16/20 23 42011-IGRB SKIN LESIONS, OVER 4 07/02/20 23 32460-IXWB SKIN LESIONS, OVER 4 09/20/19 24 73216-FIMF SKIN LESIONS, OVER 4 12/03/19 24 67660-LTDF SKIN LESIONS, OVER 4 02/25/20 24 78710-UXBM SKIN LESIONS, OVER 4 09/04/19 17 03883-VHMI SKIN LESIONS, OVER 4 11/17/19 17 30954-YEGO SKIN LESIONS, OVER 4 01/30/20 17 79931-KFMF SKIN LESIONS, OVER 4 06/22/20 16 66138-ZJWJ SKIN LESIONS, OVER 4 04/13/20 16 82905-MXGB SKIN LESIONS, OVER 4 04/12/20 17 04747-NKAH SKIN LESIONS, OVER 4 06/25/20 17 03642-HSFO SKIN LESIONS, OVER 4 11/09/19 18 67997-QOAZ SKIN LESIONS, OVER 4 09/03/19 18 23547-CWXM SKIN LESIONS, OVER 4 02/03/20 22 34074-NNPK SKIN LESIONS, OVER 4 11/18/19 59858-HXNK SKIN LESIONS, OVER 4 04/24/20 42034-RAJM SKIN LESIONS, OVER 4 07/06/20 77832-JQXN SKIN LESIONS, OVER 4 09/11/19 23 42524-OLTN SKIN LESIONS, OVER 4 09/15/19 26891-LDBE SKIN LESIONS, OVER 4 05/16/20 01821-BRKQ SKIN LESIONS, OVER 4 02/29/20 35390-FOUT SKIN LESIONS, OVER 4 12/21/19 66285-DRIN SKIN LESIONS, OVER 4 09/13/19 68406-AODC SKIN LESIONS, OVER 4 06/24/20 48547-NICZ SKIN LESIONS, OVER 4 11/10/19 55241-GABC SKIN LESIONS, OVER 4 08/04/20 38635-JHOU SKIN LESIONS, OVER 4 02/02/20 97028-YQWY SKIN LESIONS, OVER 4 04/12/20 29643-BOBW SKIN LESIONS, OVER 4 12/06/19 19 88112-XLBM SKIN LESIONS, OVER 4 05/29/20 19 14476-CRYJ SKIN LESIONS, OVER 4 02/25/20 19 34790-DDGU SKIN LESIONS, OVER 4 01/11/20 18 17774-VXUN SKIN LESIONS, OVER 4 03/25/20 18 86256-GXXQ SKIN LESIONS, OVER 4 05/27/20 18 49304-KESJ SKIN LESIONS, OVER 4 09/09/19 19 39558-WOZB SKIN LESIONS, 2 TO 4 06/14/20 15 25484-TTCT SKIN LESIONS, 2 TO 4 04/05/20 15 93121-EXAZ SKIN LESIONS, 2 TO 4 04/02/20 14 00882-QDSG SKIN LESIONS, 2 TO 4 09/06/19 16 38090-NSZK SKIN LESIONS, 2 TO 4 02/10/20 16 99288-HAKJ SKIN LESIONS, 2 TO 4 12/02/19 16 98664-TVEX SKIN LESIONS, 2 TO 4 01/15/20 12 29085-ASKD SKIN LESIONS, 2 TO 4 07/22/20 12 65587-MSPT SKIN LESIONS, 2 TO 4 04/22/20 12 47781-DBMC SKIN LESIONS, 2 TO 4 06/30/20 13 78786-LQHA SKIN LESIONS, 2 TO 4 03/31/20 13 45119-ANMX SKIN LESIONS, 2 TO 4 12/31/19 13 44462-SBXR SKIN LESIONS, 2 TO 4 10/07/19 13 98942-HMAJ SKIN LESIONS, 2 TO 4 07/06/20 14 17044-YOFR SKIN LESIONS, 2 TO 4 01/06/20 14 04977-TGDV SKIN LESIONS, 2 TO 4 10/06/19 14 91874-TKPG SKIN LESIONS, 2 TO 4 01/05/20 15 82586-TUIM SKIN LESIONS, 2 TO 4 10/27/19 15 Insurance Providers Payer Name Payer Address Payer Phone Subscriber Number Group Number Insured Name Patient Relationship to Insured Coverage Start Date Coverage End Date Medicare National [employer] [address] [place] [address] [id number] Jocelyn Mejia Self - patient is the insured 2 [employer] [address] [place] [address] [id number] Brandon Mejia Spouse - patient is the spouse of the insured Medical (General) History Medical History History ICD Code Arthritis back pain Cholesterol Hiatal hernia osteoporosis reflux hypertension ASO/PVD Arthritis - Degenerative Surgical History Surgery Date(Month/Year) Hospitalization History Reason Date(Month/Year) [facility] Acid reflux 09/08-09/12 [facility]- Flu 10/15
--- OUTSIDE RECORDS SUMMARY | 2024-11-05 14:22 | XMS_ITS ---
Author Organization [facility] Address [address] [place] [address] Care Team Providers Care Tool Storage Attendant Name Role Phone Heather CONNORS, Magy Todd Primary Care Provider Un available Bruce Dorsey Unavailable [phone] REASON FOR VISIT no show Encounters Encounter Location Date Provider Diagnosis [address] [address] 08/11/2024 Bruce Dorsey Plan Of Treatment No Information Progress Notes * Jocelyn JACOBS MDOB: [birth year] (88 yo F)Acc No.[id number]:08/11/2024 Patient:?ARLENE Jocelyn Palma :1935???Age:88 Y???Sex:Female Address:[address] [place] [address] [address], [place], [address] * true * Date:? Generated for Printi gerhard/Faaparnag/eTransmitting on:?11/05/2024 02:21 PM EDT
== END 2024-11-05 12:19 | disposition home or self-care (01) ==
LOC: HO.HMCC 11:11
PROVIDERS: PCP Internal Medicine; Visit Provider Internal Medicine
DX: E53.8 Deficiency of other specified B group vitamins (principal)

== ENCOUNTER → 2024-11-05 11:10 | Outpatient (BNVA) | payer MEDICARE, OTHER, SELFPAY | PROVIDERS: PCP Internal Medicine; Visit Provider Internal Medicine | DX: E53.8 Deficiency of other specified B group vitamins (principal); N28.1 Cyst of kidney, acquired; I10 Essential (primary) hypertension; F41.1 Generalized anxiety disorder; Z87.19 Personal history of other diseases of the digestive system | CPT/HCPCS: 96372; J3420 ==

== ENCOUNTER 2024-11-16 12:53 | Outpatient (REF) | payer MEDICARE, OTHER, SELFPAY ==
[2024-11-16 14:22] LABS: MANUAL DIFF FLAG NO
[2024-11-16 14:31] LABS: Basophils Percent Auto 0.2 % (0-2); Eosinophils Absolute Auto 0.1 X10*3/uL (0.0-0.4); Eosinophils Percent Auto 1.1 % (0-4); Hematocrit 31.8 % (37.0-47.0); Hemoglobin 10.2 g/dl (12.0-16.0); Imm Gran Abs Auto 0.02 X10*3/uL (0.00-0.03); Imm Gran Pct Auto 0.3 % (0.0-0.4); Lymphocytes Absolute Auto 1.9 X10*3/uL (1.2-4.9); Lymphocytes Percent Auto 29.8 % (20-40); Mean Corpuscular HGB Conc 32.1 g/dl (31.0-35.0); Mean Corpuscular Hemoglobin 32.6 pg (27.0-33.0); Mean Corpuscular Volume 101.6 fL (80.0-98.0); Mean Platelet Volume 10.2 fL (9.4-12.3); Monocytes Absolute Auto 0.5 X10*3/uL (0.1-1.2); Monocytes Percent Auto 7.2 % (2-11); Neutrophils Absolute Auto 3.9 x10*3/uL (2.0-8.3); Neutrophils Percent Auto 61.4 % (45-73); Platelet Count 229 X10*3/uL (160-400); Red Blood Count 3.13 X10*6/uL (4.20-5.50); White Blood Count 6.3 X10*3/uL (4.8-10.8)
[2024-11-16 14:41] LABS: Estimated Average Glucose 97 mg/dL
[2024-11-16 15:38] LABS: Ferritin 124 ng/mL (10-250)
[2024-11-16 15:41] LABS: Folate 5.3 ng/mL (> or = 4.0); Vitamin B12 540 pg/mL (200-900)
[2024-11-17 05:33] LABS: HBS Num1 0.26 mIU/mL (0-7.99); HBc Num1 0.08 S/CO (0.00-0.79); HBsAGNum1 0.24 S/CO (0.00-0.99); HIV AB/AG Nonreactive (Nonreactive); HIV Num 1 0.08 S/CO (0.00-0.99); Hepatitis B Core Antibody Nonreactive (Nonreactive); Hepatitis B Surface Antigen Negative (Negative); ~HepC Num1 0.09 S/CO (0.00-0.79); ~Hepatitis B Surface Antibody NONREACTIVE (Nonreactive); ~Hepatitis C Antibody Nonreactive (Nonreactive)
[2024-11-18 04:14] LABS: Hepatitis A Antibody IgG Nonreactive (Nonreactive); ~Hepatitis A Antibody IgG 0.29 S/CO (0.00-0.99)
== END 2024-11-16 12:54 | disposition home or self-care (01) ==
LOC: HO.LAB 12:53
PROVIDERS: PCP Internal Medicine; Visit Provider Internal Medicine
DX: D64.9 Anemia, unspecified (principal); R63.4 Abnormal weight loss; Z87.19 Personal history of other diseases of the digestive system; K21.00 Gastro-esophageal reflux disease with esophagitis, without bleeding; Z13.1 Encounter for screening for diabetes mellitus
CPT/HCPCS: 36415; 82607; 82728; 82746; 83036; 85025; 86481; 86704; 86706; 86708; 86803; 87340; 87389; 99202

== ENCOUNTER 2024-11-16 12:53 | Outpatient (AMB) | payer MEDICARE, OTHER, SELFPAY ==
--- NOTE | 2024-11-16 13:07 | A.OFFVIS_ITS ---
Vital Signs 11/16/24 13:11 Height 5 ft 2 in Weight 119 lb 0.794 oz BMI 21.8 BP 128/61 Blood Pressure Location Lt brachial Position Sitting Pulse 67 Intake Visit Reasons: Gastroesophageal reflux disease (GERD) Intake Note: Jocelyn presents in the office as a new patient for GERD. CC: She is here today because she has questions because of her weight loss - she ended up in the hospital. She has issues with her constipation and trouble eating. Allergies No Known Allergies Allergy (Verified 11/05/24 11:51) HPI Comments Details: 89 y.o F with PMH of MICHAEL, osteoporosis, GERD, HTN, who is here for unintentional weight loss. Accompanied by her friend Jenn. Was in [facility] in sep - reports hospitalization was in fact NOT for diarrhea. She was constipated for almost 5 days before she had a large BM in the rehab. With this she had also reported unintentional weight loss. 10lbs since Jun 2024. Reports good appetite but with early satiety. Grazes through the day. In terms of constipation, this is resolved. Since discharge from rehab, pt has been taking colace and increased hydration and BMs are now a bit more regular with less straining. Does not have feeling of incomplete evacuation. Last colo almost 15 years ago. Rectal hyperplastic polyp. CT chest/abd/pel done inpatient with question of possible neoplastic mass on LEFT kidney. Will be seeing Urology later this month but tells me this is a chronic finding. Pt also noted to have chronic macrocytic anemia on labs, no iron deficiency 02/2024 labs. 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 Mother Arthritis Son No problems noted. Daughter No problems noted. Brother No problems noted. Social History Housing: Condominium Alcohol intake: former Patient Tobacco Use Status: Never used Tobacco Tobacco use type: Cigarette e-Cigarette/Vaping Use: Never Used Second Hand Smoke Exposure: Yes Advance Directives Date on File: 03/11/24 service: No Current occupational status: retired Current occupation: Retired Cognitive needs: No Hearing needs: No Vision needs: Yes Review of Systems Const All systems reviewed & are unremarkable except as noted in HPI and below Physical Exam Vital Signs: Last Vital Signs Pulse 67 11/16/24 13:11 BP 128/61 11/16/24 13:11 BMI result Body Mass Index 21.8 Frail elderly female NAD Ambulates with a cane No overt resp distress Assessment & Plan Assessment & Plan (1) Unintentional weight loss: Code(s): R63.4 - Abnormal weight loss Category: Medical (2) Anemia: Code(s): D64.9 - Anemia, unspecified Category: Medical (3) History of constipation: Code(s): Z87.19 - Personal history of other diseases of the digestive system Category: Medical (4) GERD with esophagitis: Code(s): K21.00 - Gastro-esophageal reflux disease with esophagitis, without bleeding Category: Medical Plan Discussed with the pt that typically work up for unintentional weight loss includes bidirectional endoscopy however due to reduced physiological reserve will favor doing a CT colonography and reserving colo only if there is an actionable finding. If CT colo is negative, can proceed with just EGD kisha as sx mostly epigastric in nature with early satiety and frequent belching. Labs also ordered for chronic metabolic/infectious disease contributing to we ight loss. Similarly iron, B12 and folate ordered for eval of anemia. May need heme work up to r/o MDS. Plan: - Labs as below - CT colonography - Follow up with Uro as scheduled - Follow up with GI in 6-8 weeks to review EGD +/- colo based on above - Recommend calorie dense foods in the meantime such as protein shakes Orders: Orders Complete Blood Count Auto Diff Today D64.9 - Anemia, unspecified Ferritin Today D64.9 - Anemia, unspecified Vitamin B12 and Folate Today D64.9 - Anemia, unspecified Hepatitis A IgG Today R63.4 - Abnormal weight loss Hepatitis B Surface Antigen Today R63.4 - Abnormal weight loss T Spot TB Today R63.4 - Abnormal weight loss CT colonography Today R63.4 - Abnormal weight loss Hemoglobin A1c Today R63.4 - Abnormal weight loss Hepatitis B Core Antibody Today R63.4 - Abnormal weight loss Hepatitis B Surface Antibody Today R63.4 - Abnormal weight loss Hepatitis C Antibody Today R63.4 - Abnormal weight loss HIV Ab/Ag Today R63.4 - Abnormal weight loss Medications: New polyethylene glycol 3350 (Miralax) mix in [address] colonography 238 grams PO ONCE 238 grams 0RF Coding Level of Care Code New Pt Level 4 (39909) Complex EM visit Add On G2211 Diagnoses Unintentional weight loss R63.4 Anemia D64.9 History of constipation Z87.19 GERD with esophagitis K21.00
[2024-11-16 13:11] VITALS: BP 128/61; PULSE 67; BMI 21.8
== END 2024-11-16 13:42 | disposition home or self-care (01) ==
LOC: HO.HGI 12:54
PROVIDERS: PCP Internal Medicine; Visit Provider Internal Medicine
DX: R63.4 Abnormal weight loss (principal); D64.9 Anemia, unspecified; Z87.19 Personal history of other diseases of the digestive system; K21.00 Gastro-esophageal reflux disease with esophagitis, without bleeding
CPT/HCPCS: 99204; G2211

== ENCOUNTER 2024-11-20 12:27 | Outpatient (REF) | payer MEDICARE, OTHER, SELFPAY ==
--- NOTE | ~2024-11-20 | US_ITS ---
EXAMINATION: US LOWER EXTREMITY VENOUS (REFLUX EXAM), BILATERAL CLINICAL INFORMATION: Varices. COMPARISON: Ultrasound and dated September 24, 2013. TECHNIQUE: Color flow triplex imaging and compression Doppler was performed to evaluate both the deep and the superficial systems bilaterally. To evaluate the superficial system, the examination was performed in the upright position. Color-flow Doppler ultrasound and compression ultrasound were utilized. In addition, maneuvers were utilized to demonstrate reflux. FINDINGS: 1. DEEP VENOUS ULTRASOUND OF THE RIGHT LOWER EXTREMITY: Common Femoral Vein: Compressible, normal respiratory variation and augmented flow. Femoral Vein: Compressible, normal color flow and augmentation. Popliteal Vein: Compressible, normal augmentation. Deep Reflux: There is no evidence of reflux in the deep system in either the common femoral vein, superficial femoral or the popliteal vein. There is no evidence of a Humphries's cyst. 2. SUPERFICIAL ULTRASOUND WITH DOPPLER OF RIGHT LOWER EXTREMITY: GREAT SAPHENOUS VEIN: Saphenofemoral Junction: 0.6 cm; Reflux: 0 ms Proximal Thigh: 0.3 cm; Reflux: 0 ms Mid Thigh: 0.1 cm; Reflux: 0 ms Distal Thigh: 0.2 cm; Reflux: 0 ms At Knee: 0.3 cm; Reflux: 0 ms Proximal Calf: 0.2 cm; Reflux: 0 ms Mid Calf: 0.2 cm; Reflux: 0 ms Distal Calf: 0.2 cm; Reflux: 0 ms DUPLICATED MEDIAL GREAT SAPHENOUS VEIN: Diameter: None imaged Reflux: NA DUPLICATED LATERAL GREAT SAPHENOUS VEIN: Diameter: None imaged Reflux: NA SMALL SAPHENOUS VEIN: Saphenopopliteal Junction: 0.3 cm; Reflux: 0 ms Proximal: 0.3 cm; Reflux: 0 ms Distal: 0.2 cm; Reflux: 0 ms VEIN OF GIACOMINI: Size: NA Reflux: NA PERFORATORS: Location: Mid and distal calf. Size: 0.2 cm. Reflux: NA VARICOSITIES: Location: None imaged. Size: NA Reflux: NA 3. DEEP VENOUS ULTRASOUND OF THE LEFT LOWER EXTREMITY: Common Femoral Vein: Compressible, normal respiratory variation and augmented flow. Femoral Vein: Compressible, normal color flow and augmentation. Popliteal Vein: Compressible, normal augmentation. Deep Reflux: There is no evidence of reflux in the deep system in either the common femoral vein, superficial femoral or the popliteal vein. There is no evidence of a Humphries's cyst. 4. SUPERFICIAL ULTRASOUND WITH DOPPLER OF LEFT LOWER EXTREMITY: GREAT SAPHENOUS VEIN: Saphenofemoral Junction: 0.5 cm; Reflux: 0 ms Proximal Thigh: 0.2 cm; Reflux: 0 ms Mid Thigh: 0.3 cm; Reflux: 0 ms Distal Thigh: 0.3 cm; Reflux: 0 ms At Knee: 0.2 cm; Reflux: 0 ms Proximal Calf: 0.2 cm; Reflux: 0 ms Mid Calf: 0.3 cm; Reflux: 0 ms Distal Calf: 0.2 cm; Reflux: 0 ms DUPLICATED MEDIAL GREAT SAPHENOUS VEIN: Diameter: None imaged Reflux: NA DUPLICATED LATERAL GREAT SAPHENOUS VEIN: Diameter: None imaged. Reflux: NA SMALL SAPHENOUS VEIN: Saphenopopliteal Junction: 0.3 cm; Reflux: 0 ms Proximal: 0.1 cm; Reflux: 0 ms Distal: 0.3 cm; Reflux: 0 ms VEIN OF GIACOMINI: Size: NA Reflux: NA PERFORATORS: Location: Mid and distal calf. Size: 0.2 cm Reflux: NA VARICOSITIES: Location: Distal thigh proximal calf. Size: 0.3 cm. Reflux: NA US/US venous duplex LE BI IMPRESSION: Right: No venous insufficiency. Left: No venous insufficiency. Varices and perforators without reflux. Electronically signed by: Williams Plascencia MD 11/20/2024 03:07 PM EDT
== END 2024-11-20 12:28 | disposition home or self-care (01) ==
LOC: HO.US 12:27
PROVIDERS: PCP Internal Medicine; Visit Provider Surgery Vascular Surgery
DX: I83.12 Varicose veins of left lower extremity with inflammation (principal)
CPT/HCPCS: 93970

== ENCOUNTER → 2024-11-20 12:30 | Outpatient (BNV) | payer MEDICARE, OTHER, SELFPAY | PROVIDERS: PCP Internal Medicine; Visit Provider Radiology Diagnostic Radiology | DX: I83.12 Varicose veins of left lower extremity with inflammation (principal) | CPT/HCPCS: 93970 ==

== ENCOUNTER 2024-11-24 13:09 | Outpatient (AMB) | payer MEDICARE, OTHER, SELFPAY ==
--- NOTE | 2024-11-24 13:15 | MHC.OFFVIS ---
Intake Visit Reasons: follow up s/p [facility] 11/20/24 Intake Note: Patient is following up for [facility] follow up. Has bilateral ankle and foot swelling, with pain. Accompanied by: Friend Allergies No Known Allergies Allergy (Verified 11/24/24 13:16) HPI HPI follow up s/p [facility] 11/20/24: Details: Jocelyn is presenting today as a follow up to [facility], performed on 11/20/24. She continues to endorse left>right lower extremity swelling, particularly around her ankles. She states this has been going on for awhile now and is not worsening but has not gotten any better. She has been taking Lasix 20mg daily, starting with bid for 3d, and she states it has not been helping. She does state that elevation helps with the swelling. She has no new concerns today. 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 Mother Arthritis Son No problems noted. Daughter No problems noted. Brother No problems noted. Social History Housing: Condominium Alcohol intake: former Patient Tobacco Use Status: Never used Tobacco Tobacco use type: Cigarette e-Cigarette/Vaping Use: Never Used Second Hand Smoke Exposure: Yes Advance Directives Date on File: 03/11/24 service: No Current occupational status: retired Current occupation: Retired Cognitive needs: No Hearing needs: No Vision needs: Yes Review of Systems Const Reports as per HPI and Denies weakness ENT Reports Normal hearing present and Denies dizziness Card Reports as per HPI, Denies chest pain, Denies chest pain at rest, Denies chest pain with activity, Denies dyspnea and Denies dyspnea on exertion Resp Reports as per HPI, Denies cough, Denies dyspnea and Denies dyspnea on exertion GI Reports as per HPI, Denies abdominal pain, Denies nausea and Denies vomiting Musc Denies numbness Skin/Breast Reports as per HPI, Denies erythema and Denies wounds Neuro Reports Normal hearing present, Denies dizziness, Denies numbness, Denies Sensory deficit (Neuro) and Denies weakness Psych Reports no additional complaints Endo Reports no additional complaints Physical Exam Const General: healthy appearing and no acute distress Orientation/consciousness: patient oriented x3 HEENT Head: Yes normal to inspection Ears: hearing grossly normal bilaterally Mouth: Normal oral and palatal mucosa present Resp Effort & Inspection: normal respiratory effort and able to speak in complete sentences Auscultation: clear to auscultation bilaterally Cardio Jugular venous distension: no JVD Rate: regular rate Rhythm: regular rhythm Heart sounds: S1 normal heart sound present and S2 normal heart sound present Bruits: no abdominal aortic bruits, no carotid bruits, no femoral bruits and no renal bruits Peripheral pulses: Peripheral pulses 2+ throughout GI Inspection: Yes normal to inspection Palpation (GI): No Abdominal aortic bruit present Skin General skin exam: no rashes or lesions noted Wounds: no wounds Hair: normal Neuro General: patient oriented x3 Cranial nerves: Yes Normal hearing present Cognition (Neuro): normal cognition Gait exam (Neuro): Normal gait present Motor exam (neuro): 5/5 motor strength present throughout Sensory Exam: No Sensory deficit (Neuro) Extrem Other: Left foot/ankle: +2 edema noted, circumferentially around the ankle. Right foot/ankle: +1/2 edema noted, circumferentially around the ankle. General: Yes normal to inspection, Yes full ROM, Yes capillary refill normal and Yes normal gait Results Reviewed Results Reviewed: Brief summary of venous insufficiency testing is as follows: right great saphenous vein: negative right small saphenous vein: negative right accessory vein: none present left great saphenous vein: negative left small saphenous vein: negative left accessory vein: none present Please note there is no evidence of any venous aneurysms or significant tortuosity Assessment & Plan Assessment & Plan (1) Varicose veins of left lower extremity with inflammation: Code(s): I83.12 - Varicose veins of left lower extremity with inflammation Category: Medical Plan: Jocelyn is presenting today for a follow up to US, performed on 11/20/24. The US was negative for any venous insufficiency. She continues to endorse bilateral, left>right ankle and foot swelling, better with elevation. We discussed the importance of continuing with elevation, compression socks, and physical activity. We discussed following up with her PCP for further evaluation of the swelling. We discussed that if she had any other vascular concerns, she could reach back out to us at any point. Thank you for allowing us to participate in the patient's care. If there are any questions or concerns, please do not hesitate to reach out to us. Coding Level of Care Code Est Pt Level 4 (55973) Diagnoses Varicose veins of left lower extremity with inflammation I83.12 Comment review of venous insufficiency US
--- OUTSIDE RECORDS SUMMARY | 2024-11-24 15:27 | XMS_ITS ---
Author Organization [facility] Address [address] [place] [address] Care Team Providers Care Javascript Front End Developer Name Role Phone Heather CONNORS, Magy Todd Primary Care Provider Un available Bruce Dorsey Unavailable [phone] Encounters Encounter Location Date Provider Diagnosis [address] [address] 07/31/2024 Bruce Dorsey Plan Of Treatment No Information Progress Notes * JACOBS, Jocelyn CONNORSOB: [birth year] (89 yo F)Acc No.[id number]:07/31/2024 Progress Note Patient:Jocelyn FORD Provider:?Bruce Dorsey DPM :1935???Age:88 Y???Sex:Female D ate:07/31/2024 Address:[address] [place] [address] [address], [id number] Pcp:Louie Anderson Subjective: * Chief Complaints: * ??? * Medical History:? Objective: * Vitals:? Assessment: Plan: * Treatment: * Images: * The named appointment provid er may or may not be the originator of this progress note, and it is not deemed complete until electronically signed by the appointment provider. Sign off status: Pending * Provider:Mackenzie Dorsey DPM Date:?2023 Generated for Ronaki gerhard/Kinjal/eTransmitting on:?11/24/2024 03:27 PM EDT
--- OUTSIDE RECORDS SUMMARY | 2024-11-24 15:27 | XMS_ITS ---
Author Organization [facility] Address [address] [place] [address] Care Team Providers Care Warehouse Order Picker Name Role Phone Heather CONNORS, Magy Todd Primary Care Provider Un available Bruce Dorsey Unavailable [phone] REASON FOR VISIT no show Encounters Encounter Location Date Provider Diagnosis [address] [address] 08/11/2024 Bruce Dorsey Plan Of Treatment No Information Progress Notes * Jocelyn JACOBS MDOB: [birth year] (88 yo F)Acc No.[id number]:08/11/2024 Patient:?ARLENE Jocelyn Palma :1935???Age:88 Y???Sex:Female Address:[address] [place] [address] [address] [place], [address] * true * Date:? Generated for Printi gerhard/Kinjal/eTransmitting on:?11/24/2024 03:26 PM EDT
--- OUTSIDE RECORDS SUMMARY | 2024-11-24 15:27 | XMS_ITS ---
Author Organization [facility] Address [address] [place] [address] Care Team Providers Care Flight Superintendent Name Role Phone Heather CONNORS, Magy Todd Primary Care Provider Un available Bruce Dorsey Unavailable [phone] Encounters Encounter Location Date Provider Diagnosis [address] [address] 08/11/2024 Bruce Dorsey Plan Of Treatment No Information Progress Notes * JACOBS, Jocelyn CONNORSOB: [birth year] (89 yo F)Acc No.[id number]:08/11/2024 Progress Note Patient:Jocelyn FORD Provider:?Bruce Dorsey DPM :1935???Age:88 Y???Sex:Female D ate:08/11/2024 Address:[address] [place] [address] [address], [id number] Pcp:Louie Anderson Subjective: * Chief Complaints: * [...] DPM Date:?2023 Generated for Ronaki gerhard/Kinjal/eTransmitting on:?11/24/2024 03:26 PM EDT
--- OUTSIDE RECORDS SUMMARY | 2024-11-24 15:27 | XMS_ITS | Patient Health Record ---
Author Organization [facility] Address [address] [place] [address] Care Team Providers Care Lead C Developer Name Role Phone Heather CONNORS, Magy Primary Care Provider Brian Tam Unavailable [phone] SALOMÓN CHAMPION Unavailable Unavailable Allergies Allergen (clinical [...] Problem Status W/U Status Risk Notes Problem 00087056 Cough (R05) Active confirmed Problem 420163193 Gastroesophageal reflux disease with esophagitis (K21.0) Active confirmed Problem 48183040 Erosive esophagi tis (K22.10) Active confirmed Problem 28671642 Constipation, unspecified constipation type (K59.00) Active confirmed Problem 80229313 Esophagitis (K20.9) Active confirmed Problem 51936402 Lower abdominal pain (R10.30) Active confirmed Plan Of Treatment Pending Test Test Name Order Date XR CHEST 2 VIEW PA & LAT 04/25/2021 Future Test Test Name Order Date UPPER GI ENDOSCOPY 11/13/2016 Insurance Providers Payer Name Payer Address Payer Phone Subscriber Number Group Number Insured Name Patient Relationship to Insured Coverage Start Date Coverage End Date MEDICARE OF [place] [address] [place] [address] [phone] [id number] JACOBS , HITESH Self - patient is the insured [employer] [address] [place] [address] [id number] [id number] JACOBSIS Self - patient is the [...]
== END 2024-11-24 13:42 | disposition home or self-care (01) ==
LOC: HO.HVS 13:10
PROVIDERS: PCP Internal Medicine; Visit Provider Physician Assistant Surgical
DX: I83.12 Varicose veins of left lower extremity with inflammation (principal)
CPT/HCPCS: 99214

== ENCOUNTER → 2024-11-24 13:09 | Outpatient (BNVA) | payer MEDICARE, OTHER, SELFPAY | PROVIDERS: PCP Internal Medicine; Visit Provider Physician Assistant Surgical | DX: I83.12 Varicose veins of left lower extremity with inflammation (principal) | CPT/HCPCS: 99212 ==

== ENCOUNTER 2024-12-05 17:30 | Inpatient (IN) | payer MEDICARE, OTHER, SELFPAY ==
--- NOTE | 2024-12-05 | ECG_ITS ---
Test Reason : weakness Blood Pressure : */* mmHG Vent. Rate : 90 BPM Atrial Rate : 90 BPM P-R Int : 182 ms QRS Dur : 140 ms QT Int : 394 ms P-R-T Axes : -1 -36 105 degrees QTcB Int : 481 ms Normal sinus rhythm Left axis deviation Left bundle branch block Abnormal ECG When compared with ECG of 02-Oct-2024 13:59, No significant change was found Referred By: Caden Figueroa Electronically Signed By: Darin Perla
--- NOTE | ~2024-12-05 | US_ITS ---
EXAMINATION: RENAL ULTRASOUND, LEFT SIDE. CLINICAL INFORMATION: Left renal mass. Recurrent urinary tract infection. COMPARISON: Correlated to CT dated December 06, 2024. TECHNIQUE: Real-time ultrasound of the left kidney using grayscale and color Doppler technique. FINDINGS: Limited examination demonstrated a large, approximately 10 cm, multifocal septated anechoic and hypoechoic lesion with the areas of flow on color Doppler interrogation. US/US renal LT IMPRESSION: Large, 10 cm, complex multifocal septated exophytic lesion/mass centered in the left kidney. Electronically signed by: Williams Plascencia MD 12/16/2024 03:15 PM EDT
--- NOTE | ~2024-12-05 | CT_ITS ---
CLINICAL HISTORY: cough, tachycardia, r o PE CT angiography chest with contrast. MIP postprocessing. Comparison: CR - XR CHEST 1V - 12/05/24 18:[address]/SR - CT CHEST WO IV CON - 10/06/24 10:04 EST Findings: There is appropriate contrast opacification of the main, lobar, and segmental pulmonary arteries. No filling defects identified to suggest pulmonary embolism. Dense vascular calcification of the aortic arch without dissection or aneurysmal dilatation of the thoracic aorta. Mild dilation of the left atrial and left ventricular chambers. No pathologically enlarged mediastinal, hilar, or axillary lymph nodes. Small bilateral pleural effusions, [id number]-left. Areas of hazy density are seen throughout the lungs bilaterally. Likely dependent atelectasis within the lower lobes bilaterally. No pneumothorax. Air-fluid level seen within the proximal esophagus with mild fluid distention of the mid to distal esophagus as well. Small to moderate-sized hiatal hernia. Extensive abnormality of the left kidney. Please refer to the patient's separately dictated CT of the abdomen and pelvis from same time for further information. Low-density lesions are also seen within the liver. No acute bony lesions. IMPRESSION: 1. No pulmonary embolus. 2. Likely mild congestive heart failure. 3. Hiatal hernia with findings suggestive of gastroesophageal reflux or esophageal dysmotility. 4. Please refer to the patient's separately dictated CT of the abdomen and pelvis from same time for information regarding abnormalities within the upper abdomen. This document has been electronically signed by: Shane Mcclellan MD on 12/06/2024 08:35:44
--- NOTE | ~2024-12-05 | CT_ITS ---
PROCEDURE: CT GUIDED BIOPSY an aspiration left KIDNEY CLINICAL INFORMATION: Complex cystic lesion midpole left kidney and an hydronephrotic upper pole left kidney COMPARISON: Ultrasound abdomen 12/09/[address] abdomen 12/06/2024. TECHNIQUE: Following explaining CT fluoroscopy guided aspiration biopsy midpole complex lesion and and is slightly cystic lesion of the upper pole, procedure , benefits and risk aerated and consent was obtained from the patient. Patient was placed prone and preliminary CT imaging was obtained with markers placed on the posterior abdomen. 2 sites were selected along the left posterior abdomen and left posterior lateral abdomen and markers placed on the skin. The marked areas were cleaned and draped in usual sterile manner. 1% lidocaine was injected along the posterior lateral aspect of left abdomen. 1% lidocaine was injected at puncture site. Through a small skin incision a 20-gauge guide needle was advanced from small skin incision into the midpole cystic and solid collection/lesion. Underlying the stylet there was dru pus visualized seen coming through the needle. The fluid was sent for culture, sensitivity and Gram stain. Subsequently coaxial CT biopsy was performed and the biopsy was sent to lab to be sent to [facility] for further evaluation. Second site slightly along the posterior abdomen was infiltrated 1% lidocaine. Small skin incision was performed. A short guide needle was advanced from the skin into the upper pole cystic lesion. Dru pus approximately 100/ 150 mL was aspirated and sent to lab for culture, sensitivity and Gram stain. No catheter was left in place as this was felt to be chronic. A urology consult should be placed for further evaluation. Post procedure repeat CT imaging revealed no perirenal hematoma. Sterile dressing was applied at the puncture site. Patient tolerated procedure extremely well. Conscious sedation was given and patient monitored for 36 minutes during exam and patient monitored by IR nurse and IR physician This CT examination was performed using dose optimization techniques as appropriate, variously including the following: *Automated exposure control *Adjustment of mA and/or kV according to patient size (this includes techniques or standardized protocols for targeted exams where dose is matched to indication/reason for exam; i.e. extremities or head) *Use of iterative reconstruction technique DLP: 384 mGy/cm. FINDINGS: On previous CT imaging there are 2 cystic areas seen the upper pole appears predominately cystic measuring minus Hounsfield units the midpole cystic/solid lesion is slightly more complex and and was felt to be a mass. The first aspiration or midpole reveal process. This was sent for culture, sensitivity and gram staining. Also a biopsy was performed and sent to pathology/mass or further imaging. The second needle was otherwise inserted in an probably upper pole cystic lesion and right proximal 150 mL aspirated. This was sent to lab for culture, sensitivity and Gram stain. Recommend urology consult. CT/CT biopsy renal LT IMPRESSION: Successful CT fluoroscopy guided biopsy of mid pole complex lesion and aspiration. Successful CT fluoroscopy guided aspiration of upper pole cystic lesion which is predominantly puss. Recommend urology consult. Electronically signed by: Kumar Vickers MD 12/10/2024 04:13 PM EDT RP
--- NOTE | ~2024-12-05 | CT_ITS ---
CLINICAL HISTORY: abd pain, nausea, vomiting, diarrhea CT abdomen and pelvis with IV contrast Comparison: CT/[place]/SR - CT ABDOMEN PELVIS WO IV CON - 10/05/24 14:[address]/[place]/SR - CT ABDOMEN PELVIS W IV CON - 10/02/24 13:[address] - CT ABDOMEN PELVIS W IV CON - 10/02/24 13:[address]/REG/[place]/SR - CT ABDOMEN WO/W CON - 03/13/22 15:09 EDT Findings: Basilar atelectasis.Small layering pleural effusions [id number]. The heart is not enlarged. Coronary artery calcifications: Mild.Small sliding hiatal hernia. Liver normal size and contour. Stable probable hepatic cysts. Patent hepatic and portal veins. Physiologic distention of the gallbladder with no radiopaque gallstones. Homogeneous enhancement of the pancreas. No splenomegaly. Normal adrenal glands. Exophytic septated complex cystic mass with probable dilated calyces upper pole left kidney measuring 10 x 9 cm with underlying mass not excluded. This has been described on multiple previous CTs. The cystic component appears more prominent.No evidence of renal parenchymal disease or obstructive uropathy on the right. Normal caliber abdominal aorta. Bowel demonstrates a nonobstructive pattern. No free air. Appendix not identified.Colitis left hemicolon.Moderate free fluid in the pelvis.Mesenteric edema.Normal distention of the urinary bladder. No vertebral body compression fractures or spondylolisthesis. No bony destructive lesions. Impression: 1. Colitis left hemicolon. No significant diverticular disease. 2. 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 Underlying mass can not be excluded. The cystic component has progressed on serial studies and therefore obstructive calices can be considered 3. Mild pleural-parenchymal disease lung bases. Mesenteric edema. Moderate free fluid in the pelvis. Diverticulosis coli. This document has been electronically signed by: Raad Gabriel MD on 12/06/2024 07:18:40
--- NOTE | ~2024-12-05 | XR_ITS ---
CLINICAL HISTORY: Fever, cough, low O2 sat, rule out pneumonia 1 view chest x-ray Comparison: CT/SR - CT CHEST WO IV CON - 10/06/24 10:04 EST CR/SR - XR CHEST 1V - 10/02/24 13:03 EST Findings: No consolidation or effusion. Normal heart size. No pericardial effusion. No acute fracture. Scoliosis. IMPRESSION: 1. No acute cardiopulmonary findings. This document has been electronically signed by: Amaris Thorpe MD on 12/05/2024 19:16:50
--- NOTE | ~2024-12-05 | CT_ITS ---
CT-guided left renal aspiration was dictated with CT-guided left renal biopsy. Electronically signed by: Kumar Vickers MD 12/15/2024 08:34 AM EDT RP
[2024-12-05 17:45] VITALS: BP 140/80; BP 147/59; PULSE 88; PULSE 95; RESP 26; TEMP 39.4; O2SAT 90; O2SAT 97; BMI 20.9
--- NOTE | 2024-12-05 17:57 | ED.GENADULT ---
HPI - General Adult General Chief complaint: Fever Stated complaint: fever/UTI Time Seen by Provider: 12/05/24 17:54 Source: patient Mode of arrival: EMS Limitations: no limitations History of Present Illness ED Provider: Dr. Caden Figueroa HPI narrative: 89-year-old female with a history hypertension, coronary artery disease, GERD, left bundle-branch block, chronic lower back pain secondary to disc disease, and spinal stenosis, who presents emergency department for evaluation of feeling sick for 2 days. Patient states that she he was not been able to eat or drink for the last 2 days. She states that she has been dry heaving and he was had multiple episodes of loose diarrheal stool per day. She states she was had nothing to eat since , 12/03/2024 (3 days) and he was only been able to drink small amounts of fluid. She states she was feeling weak, dizzy and lightheaded. She states she was felt hot and cold at home but did not take her temperature. She was had a nonproductive cough. She denied chest pain or shortness of breath. She was complaining of lower abdominal pain that she describes as a ?stomach pain? which is 8/10 at its worst. She describes the diarrhea as loose and runny with no blood in the diarrhea. Patient was hospitalized at [facility] 09/30/2024 with a diagnosis of acute diarrhea and urinary tract infection. In reviewing that record the patient had watery diarrhea for 4 days with associated lower abdominal pain, nausea but no vomiting. She had no dysuria but urine culture was positive for Proteus mirabilis which was pansensitive. She was treated with ceftriaxone and discharged on oral antibiotics. Related Data Home Medications ?Medication ?Instructions ?Recorded ?Confirmed denosumab 60 mg/mL subcutaneous 60 mg subcut [id number] 05/25/20 10/05/24 syringe (Prolia) acetaminophen 500 mg tablet 1,000 mg PO BID PRN pain 05/17/23 10/05/24 (Tylenol Extra Strength) buspirone 7.5 mg tablet 7.5 mg PO BEDTIME 10/02/24 10/05/24 furosemide 20 mg tablet 20 mg PO DAILY PRN Foot swelling 10/02/24 10/05/24 propranolol 60 mg tablet mg PO 11/16/24 Previous Rx's ?Medication ?Instructions ?Recorded miscellaneous medical supply #1 ea 05/07/23 lisinopril 2.5 mg tablet 2.5 mg PO DAILY #90 tabs 09/24/24 omeprazole 20 mg capsule,delayed 20 mg PO DAILY #90 caps 09/24/24 release primidone 50 mg tablet 100 mg (2 x 50 mg) PO BID #180 tabs 09/24/24 cyanocobalamin (vitamin B-12) 1,000 mcg IM Q4W #3 mL 10/03/24 1,000 mcg/mL injection solution polyethylene glycol 3350 17 238 g PO ONCE #238 grams 11/16/24 gram/dose oral powder (Miralax) furosemide 40 mg tablet 40 mg PO QAM PRN edema #7 tabs 11/18/24 Allergies Allergy/AdvReac Type Severity Reaction Status Date / Time No Known Allergies Allergy Verified 12/05/24 17:49 Review of Systems Review of Systems: Yes all other systems are reviewed and are negative [facility] Past Medical History [facility] Narrative: Social history: She lives alone. She denies tobacco, alcohol and drug use. 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 Mother Arthritis Son No problems noted. Daughter No problems noted. Brother No problems noted. Social History Social History Housing: Condominium Alcohol intake: former Patient Tobacco Use Status: Never used Tobacco Tobacco use type: Cigarette Smoked in Last 30 Days: No e-Cigarette/Vaping Use: Never Used Second Hand Smoke Exposure: Yes Use of substances other than those prescribed or required for medical reasons: No Advance Directives: Yes Advance Directives on File: Yes Advance Directives Date on File: 03/11/24 Do you have a plan to hurt others: No Plan service: No Current occupational status: retired Current occupation: Retired Cognitive needs: No Hearing needs: No Vision needs: Yes Physical Exam ED Vital Signs: Vital Signs - 24 hr 12/05/24 17:45 12/05/24 19:10 12/05/24 20:29 Temperature 102.9 F H Pulse Rate 95 85 81 Respiratory Rate 26 H 18 22 H Blood Pressure 147/59 H 115/54 L 97/46 L Pulse Oximetry 97 96 94 Oxygen Delivery Method Room Air Room Air Room Air 12/05/24 23:00 Temperature 98.5 F Pulse Rate 74 Respiratory Rate 16 Blood Pressure 113/50 L Pulse Oximetry 95 Oxygen Delivery Method Room Air BMI result Body Mass Index 20.9 Vital signs revealed an elevated temperature of a 102.9 degrees F, elevated respiratory rate of 26, elevated BP 147/59 and normal O2 saturation of 97% on room air Exam: General: Awake, tachypneic, answers all questions in full sentences, does not appear to be in distress Head: Normocephalic, atraumatic EENT: PERRL, Lids normal, sclera normal, conjunctiva normal, nose normal , ears normal, throat without erythema or exudates Neck: Supple, no adenopathy Lung: breath sounds symmetric, no wheezing, rales or rhonchi Chest: symmetric movement, nontender Heart: regular rate and rhythm, normal S1, S2 no murmurs or rubs Abdomen: soft, moderate suprapubic tenderness, nondistended, normal bowel sounds Back: no vertebral tenderness, no CVAT Extremities: no deformities, moves all extremities symmetrically Neuro: Awake, alert, oriented, normal speech, cranial nerves intact, moves all extremities symmetrically Psych: Pleasant, cooperative Medications Administered Discontinued Medications Generic Name Dose Route Start Last Admin Trade Name Freq PRN Reason Stop Dose Admin Acetaminophen 650 mg 12/05/24 17:56 12/05/24 18:09 Acetaminophen Supp 650 Mg Supp.Rect AR 12/05/24 17:57 650 mg ONCE ONE Administration Ceftriaxone Sodium 1 gm 12/05/24 17:56 12/05/24 18:10 Ceftriaxone Sodium 1 Gm Vial IVPUSH 12/05/24 17:57 1 gm ONCE ONE Administration Azithromycin 500 mg/ Sodium 250 mls @ 125 mls/hr 12/05/24 17:56 12/05/24 20:41 Chloride IV 12/05/24 19:55 Infused ONCE ONE Infusion Sodium Chloride 1,707 mls @ 1,707 mls/hr 12/05/24 18:01 12/05/24 19:20 Ns 30 ml/kg infuse over 1 hr (1707 ml) 12/05/24 19:00 Infused IV Infusion .Q1H STA Lactated Ringer's 1,000 mls @ 999 mls/hr 12/05/24 19:37 12/05/24 23:19 Lr IV 12/05/24 20:37 Infused .Q1H1M STA Infusion Ibuprofen 400 mg 12/05/24 19:37 12/05/24 19:47 Ibuprofen 400 Mg Tablet PO 12/05/24 19:38 400 mg ONCE STA Administration Ketorolac Tromethamine 15 mg 12/05/24 18:24 12/05/24 18:33 Ketorolac Tromethamine 15 Mg/Ml Vial IVPUSH 12/05/24 18:25 15 mg ONCE STA Administration Ondansetron HCl 4 mg 12/05/24 17:56 12/05/24 18:10 Ondansetron Hcl 4 Mg/2 Ml Vial IVPUSH 12/05/24 17:57 4 mg ONCE ONE Administration Medical Decision Making Medical Decision Making MDM Narrative: 89-year-old female with a history hypertension, coronary artery disease, GERD, left bundle-branch block, chronic lower back pain secondary to disc disease, and spinal stenosis, who presents emergency department for evaluation of nonproductive cough, nausea and vomiting with no food and poor fluid intake, subjective fever and chills, multiple episodes of watery diarrhea with no blood, lower abdominal pain, lightheadedness, dizziness and weakness x2 days. Patient was hospitalized at [facility] 09/30/2024 for acute diarrhea and urinary tract infection secondary to Proteus mirabilis and was treated with ceftriaxone IV and discharged on oral antibiotics. Vital signs revealed elevated blood pressure of 147/59, elevated respiratory 26, fever of 102.9 degrees F. abdominal exam revealed moderate suprapubic tenderness with no CVA tenderness. Differential diagnosis: ?Includes but is not limited to viral syndrome, COVID-19, influenza, RSV, pneumonia, bronchitis, urinary tract infection, C difficile colitis, anemia, electrolyte abnormalities Course: 18:22 Patient met sirs criteria and was made a sepsis protocol. I did order a septic workup, 30 cc/kilogram normal saline bolus, ceftriaxone 1 g IV and azithromycin 500 mg IV. She was also given Tylenol 650 per rectum for her fever and Toradol 15 mg IV for her lower abdominal pain. 19:51 My interpretation patient's laboratory evaluation is as follows: WBC elevated 12,009. Chronic microcytic anemia with an H&H of 10.2 and 31.7 with an MCV of 101.9. VBG revealed an elevated pH of 7.47 with normal pCO2 and bicarb of 36 and 26. Serum bicarb was 21. BUN elevated 22 with a normal creatinine of 0.9 3. Lactic acid was normal at 1.1. AST elevated 32. Calcium was low 8.3. BNP elevated 243. Lipase was normal. Urinalysis revealed concentrated urine, positive protein, negative blood, positive nitrates, positive leukocyte esterase. Microscopic revealed 0-10 RBCs, greater than 50 WBCs, 3-5 squamous cells and 4+ bacteria. Her urinalysis and microscopic evaluations are consistent with a urinary tract infection. COVID-19, influenza and RSV tests were negative. Chest x-ray revealed no acute findings. Patient's symptoms are most likely caused by urinary tract infection, dehydration and volume depletion secondary to her high fevers and loss of appetite with poor food and fluid intake over the last 2 days. Patient completed her fluid bolus and her blood pressure at 19:10 hours was 115/54 with a heart rate of 85. Patient was temperature it was 102.9 and not responding to the rectal Tylenol. Patient was ordered to get Motrin 400 mg orally. 04:13 I discuss the patient's presentation with the covering hospitalist, Dr. Brady and the patient will be admitted to the hospitalist service for further treatment. Admission/Observation Consideration of admission/observation: Escalation of care including admission/observation considered (Yes) Lab Data MDM Lab Attestation statement: I reviewed the patient's lab results. 12/05/24 18:09 12/05/24 18:09 Labs: Lab Results 12/05/24 12/05/24 12/05/24 Range/Units 18:09 18:10 18:15 WBC 12.9 H (4.8-10.8) X10*3/uL RBC 3.11 L (4.20-5.50) X10*6/uL Hgb 10.2 L (12.0-16.0) g/dl Hct 31.7 L (37.0-47.0) % MCV 101.9 H (80.0-98.0) fL MCH 32.8 (27.0-33.0) pg MCHC 32.2 (31.0-35.0) g/dl RDW 14.3 (11.0-16.0) % Plt Count 218 (160-400) X10*3/uL MPV 11.1 (9.4-12.3) fL Immature Gran % (Auto) 0.5 H (0.0-0.4) % Neut % (Auto) 81.8 H (45-73) % Lymph % (Auto) 9.6 L (20-40) % [place] % (Auto) 7.8 (2-11) % Eos % (Auto) 0.1 (0-4) % Baso % (Auto) 0.2 (0-2) % Lymph # (Auto) 1.2 (1.2-4.9) X10*3/uL [place] # (Auto) 1.0 (0.1-1.2) X10*3/uL Eos # (Auto) 0.0 (0.0-0.4) X10*3/uL Baso # (Auto) 0.0 (0.0-0.2) X10*3/uL Abs Immat Gran (auto) 0.07 H (0.00-0.03) X10*3/uL Absolute Neuts (auto) 10.6 H (2.0-8.3) x10*3/uL Absolute Nucleated RBC 0.000 (0.0-0.012) X10*3/uL Nucleated RBC % (auto) 0.0 (0.0-0.2) /100WBC VBG pH 7.47 H (7.32-7.43) VBG pCO2 36 mmHg VBG pO2 58 mmHg VBG HCO3 26 (22-26) mmol/L VBG O2 Saturation 91.0 % VBG Base Excess 2.8 mmol/L Sodium 136 (135-145) mmol/L Potassium 3.9 (3.3-5.1) mmol/L Chloride 106 (96-108) mmol/L Carbon Dioxide 21 L (22-29) mmol/L Anion Gap 13 (12-20) BUN 22 H (9-16) mg/dL Creatinine 0.93 (0.5-1.4) mg/dL Estim Creat Clear Calc 37.5 Estimated GFR 57 Random Glucose 103 (60-115) mg/dL Lactic Acid 1.1 (0.5-2.0) mmol/L Calcium 8.3 L D (8.4-10.2) mg/dL Magnesium 1.9 (1.6-2.6) mg/dL Total Bilirubin 0.6 (0.0-1.0) mg/dL AST 32 H (5-31) U/L ALT 8 (0-31) U/L Alkaline Phosphatase 62 (39-117) U/L Troponin I High Sens 13.8 D (<3.5-17.0) ng/L B-Natriuretic Peptide 243 H (<100) pg/mL Total Protein 6.2 L (6.5-8.0) g/dL Albumin 3.3 L (3.5-5.0) g/dL Lipase 22 (8-78) U/L Urine Color Urine Appearance Urine pH (5.0-9.0) Ur Specific [place] (1.005-1.025) Urine Protein (Neg-Trace) mg/dL Urine Glucose (UA) (Negative) mg/dL Urine Ketones (Negative) mg/dL Urine Blood (Negative) Urine Nitrite (Negative) Ur Leukocyte Esterase (Negative) Urine RBC (0-2) /HPF Urine WBC (0-5) /HPF Ur Squamous Epith Cells (0-2) /HPF Other Crystals Urine Bacteria (None Seen) Hyaline Casts (0-2) /LPF Influenza Type A (PCR) NEGATIVE (Negative) Influenza Type B (PCR) NEGATIVE (Negative) RSV RNA Qual (PCR) NEGATIVE (Negative) SARS-CoV-2 RNA (RT-PCR) NEGATIVE (Negative) 12/05/24 Range/Units 18:23 WBC (4.8-10.8) X10*3/uL RBC (4.20-5.50) X10*6/uL Hgb (12.0-16.0) g/dl Hct (37.0-47.0) % MCV (80.0-98.0) fL MCH (27.0-33.0) pg MCHC (31.0-35.0) g/dl RDW (11.0-16.0) % Plt Count (160-400) X10*3/uL MPV (9.4-12.3) fL Immature Gran % (Auto) (0.0-0.4) % Neut % (Auto) (45-73) % Lymph % (Auto) (20-40) % [place] % (Auto) (2-11) % Eos % (Auto) (0-4) % Baso % (Auto) (0-2) % Lymph # (Auto) (1.2-4.9) X10*3/uL [place] # (Auto) (0.1-1.2) X10*3/uL Eos # (Auto) (0.0-0.4) X10*3/uL Baso # (Auto) (0.0-0.2) X10*3/uL Abs Immat Gran (auto) (0.00-0.03) X10*3/uL Absolute Neuts (auto) (2.0-8.3) x10*3/uL Absolute Nucleated RBC (0.0-0.012) X10*3/uL Nucleated RBC % (auto) (0.0-0.2) /100WBC VBG pH (7.32-7.43) VBG pCO2 mmHg VBG pO2 mmHg VBG HCO3 (22-26) mmol/L VBG O2 Saturation % VBG Base Excess mmol/L Sodium (135-145) mmol/L Potassium (3.3-5.1) mmol/L Chloride (96-108) mmol/L Carbon Dioxide (22-29) mmol/L Anion Gap (12-20) BUN (9-16) mg/dL Creatinine (0.5-1.4) mg/dL Estim Creat Clear Calc Estimated GFR Random Glucose (60-115) mg/dL Lactic Acid (0.5-2.0) mmol/L Calcium (8.4-10.2) mg/dL Magnesium (1.6-2.6) mg/dL Total Bilirubin (0.0-1.0) mg/dL AST (5-31) U/L ALT (0-31) U/L Alkaline Phosphatase (39-117) U/L Troponin I High Sens (<3.5-17.0) ng/L B-Natriuretic Peptide (<100) pg/mL Total Protein (6.5-8.0) g/dL Albumin (3.5-5.0) g/dL Lipase (8-78) U/L Urine Color Dark Yellow Urine Appearance Cloudy Urine pH >= 9.0 (5.0-9.0) Ur Specific [place] >= 1.030 H (1.005-1.025) Urine Protein 300 (3+) H (Neg-Trace) mg/dL Urine Glucose (UA) Negative (Negative) mg/dL Urine Ketones 15 (Negative) mg/dL Urine Blood Negative (Negative) Urine Nitrite Positive H (Negative) Ur Leukocyte Esterase Moderate (2+) H (Negative) Urine RBC 6-10 H (0-2) /HPF Urine WBC >50 H (0-5) /HPF Ur Squamous Epith Cells 3-5 (0-2) /HPF Other Crystals Present Urine Bacteria 4+ (None Seen) Hyaline Casts 6-10 (0-2) /LPF Influenza Type A (PCR) (Negative) Influenza Type B (PCR) (Negative) RSV RNA Qual (PCR) (Negative) SARS-CoV-2 RNA (RT-PCR) (Negative) Independent Interpretation I performed an independent interpretation of an: Plain X-Ray Interpretation: My independent interpretation of the patient's one-view chest x-ray is as follows: No acute disease My independent interpretation of the patient's 12 EKG done on 12/05/2024 at 17:15 hours is as follows: Sinus bradycardia with a rate of 90, normal AR interval, prolonged QRS duration 140 milliseconds, prolonged QTC interval of 481 milliseconds, left bundle-branch block, no significant T-wave abnormalities. Compared to EKG dated 10/02/2024 at 13:59 hours, the left bundle-branch block is old. Radiology Impression Discussion of test interpretation with radiology: I have reviewed the radiologist's reading. Radiologist Impression: 1 view chest x-ray Comparison: CT/SR - CT CHEST WO IV CON - 10/06/24 10:04 EST CR/SR - XR CHEST 1V - 10/02/24 13:03 EST Findings: No consolidation or effusion. Normal heart size. No pericardial effusion. No acute fracture. Scoliosis. IMPRESSION: 1. No acute cardiopulmonary findings. This document has been electronically signed by: Amaris Thorpe MD on 12/05/2024 19:16:50 External Record Review External record reviewed: Inpatient record Chronic Conditions Patient?s care impacted by: Hypertension and Other (Coronary artery disease) Discharge Plan Discharge Patient Disposition: Admitted As Inpatient Print Language: Mohawk
[2024-12-05] MEDS: Acetaminophen Supp 650 MG SUPP.RECT PR (18:09)
[2024-12-05] MEDS: ondansetron HCL 4 MG/2 ML VIAL IVPUSH (18:10)
[2024-12-05] MEDS: cefTRIAXone sodium 1 GM VIAL IVPUSH (18:10)
[2024-12-05] MEDS: Azithromycin 500 MG in 0.9 % Sodium Chloride 250 ML 125 MG IV (18:10)
[2024-12-05 18:14] LABS: MANUAL DIFF FLAG NO
[2024-12-05 18:19] LABS: VBG Base Excess 2.8 mmol/L; VBG HCO3 26 mmol/L (22-26); VBG pCO2 36 mmHg; VBG pH 7.47 (7.32-7.43); VBG pO2 58 mmHg
[2024-12-05 18:21] LABS: Venous Blood Gas Refer to POC result
[2024-12-05 18:30] LABS: Appearance Urine Cloudy; Color Urine Dark Yellow; Glucose Urine UA Negative (Negative); Leukocyte Esterase Urine Moderate (2+) (Negative); Nitrite Urine Positive (Negative); PH >= 9.0 (5.0-9.0); Specific Gravity - Urine >= 1.030 (1.005-1.025); UMIC TRIGGER UACC YES; Urine Blood Negative (Negative); Urine Ketones 15 mg/dL (Negative); Urine Protein 300 (3+) mg/dL (Neg-Trace)
[2024-12-05 18:30] LABS: Lactic Acid 1.1 mmol/L (0.5-2.0)
[2024-12-05 18:31] LABS: Alanine Aminotransferase 8 U/L (0-31); Albumin Level 3.3 g/dL (3.5-5.0); Alkaline Phosphatase 62 U/L (39-117); Anion Gap 13 (12-20); Aspartate Amino Transferase 32 U/L (5-31); Bilirubin Total 0.6 mg/dL (0.0-1.0); Blood Urea Nitrogen 22 mg/dL (9-16); Calcium 8.3 mg/dL (8.4-10.2); Carbon Dioxide 21 mmol/L (22-29); Chloride 106 mmol/L (96-108); Creatinine Clr Calc Pharmacy 37.5; Estimated Glomerular Filt Rate 57; Glucose Random 103 mg/dL (60-115); Lipase 22 U/L (8-78); Magnesium 1.9 mg/dL (1.6-2.6); Potassium 3.9 mmol/L (3.3-5.1); Sodium 136 mmol/L (135-145); Total Protein 6.2 g/dL (6.5-8.0)
[2024-12-05] MEDS: Ketorolac Tromethamine 15 MG/ML VIAL IVPUSH (18:33)
--- NOTE | 2024-12-05 18:33 | PC.NURSE ---
Pt with persistent, non-productive cough, high fever, weakness, diarrhea, lower abd pain radiating into lower back; sepsis protocol started; IVF's and ABX infusing per orders; pt treated for fever and pain; results pending; pt A+OX3; LS CTA, dim bases
[2024-12-05 18:34] LABS: Basophils Percent Auto 0.2 % (0-2); Eosinophils Percent Auto 0.1 % (0-4); Hematocrit 31.7 % (37.0-47.0); Hemoglobin 10.2 g/dl (12.0-16.0); Imm Gran Abs Auto 0.07 X10*3/uL (0.00-0.03); Imm Gran Pct Auto 0.5 % (0.0-0.4); Lymphocytes Absolute Auto 1.2 X10*3/uL (1.2-4.9); Lymphocytes Percent Auto 9.6 % (20-40); Mean Corpuscular HGB Conc 32.2 g/dl (31.0-35.0); Mean Corpuscular Hemoglobin 32.8 pg (27.0-33.0); Mean Corpuscular Volume 101.9 fL (80.0-98.0); Mean Platelet Volume 11.1 fL (9.4-12.3); Monocytes Percent Auto 7.8 % (2-11); Neutrophils Absolute Auto 10.6 x10*3/uL (2.0-8.3); Neutrophils Percent Auto 81.8 % (45-73); Platelet Count 218 X10*3/uL (160-400); Red Blood Count 3.11 X10*6/uL (4.20-5.50); Red Cell Distribution Width 14.3 % (11.0-16.0); White Blood Count 12.9 X10*3/uL (4.8-10.8)
[2024-12-05 18:36] LABS: B Type Natriuretic Peptide 243 pg/mL (<100)
[2024-12-05 18:38] LABS: Troponin-I High Sensitivity 13.8 ng/L (<3.5-17.0)
[2024-12-05 18:40] LABS: Bacteria Urine 4+ (None Seen); Other Crystals Urine Present; UACC Culture Trigger YES; WBC Urine >50 /HPF (0-5)
[2024-12-05 18:53] LABS: Influenza A PCR NEGATIVE (Negative); Influenza B PCR NEGATIVE (Negative); Resp Syncy Virus RNA Qual PCR NEGATIVE (Negative); SARS COV2 PCR INHOUSE NEGATIVE (Negative)
[2024-12-05 19:10] VITALS: BP 115/54; PULSE 85; RESP 18; O2SAT 96
[2024-12-05] MEDS: Ibuprofen 400 MG TABLET PO (19:47)
[2024-12-05] MEDS: Lactated Ringers 1,000 ML 999 ML IV (19:47)
[2024-12-05 20:29] VITALS: BP 97/46; PULSE 81; RESP 22; O2SAT 94
[2024-12-05 23:00] VITALS: BP 113/50; PULSE 74; RESP 16; TEMP 36.9; O2SAT 95
[2024-12-06] VITALS (8 sets, daily range): BP systolic 100–146; BP diastolic 50–71; PULSE 70–102; RESP 14–18; TEMP 36.6–39.3; O2SAT 94–97; BMI 20.9
--- NOTE | 2024-12-06 04:00 | PC.NURSE ---
pt having diarrhea, sample collected sent to lab for c diff.
[2024-12-06 04:52] LABS: CDiff Gene PCR NEGATIVE (Negative)
--- NOTE | 2024-12-06 05:17 | P.HPHOSP_ITS ---
History of Present Illness Date of Service: 12/06/24 Attending physician on admission: Yuan Brady Chief Complaint: dysuria, vomiting, diarrhea pt is an 89 yo f with a pmhx significant for HTN, CAD< GED, LBBB, chronic low back pain due to disc disease, and spinal stenosis, who presented to the ED due to dysuria, nausea, vomiting, diarrhea, and inability to eat or drink for the past 3 days due to her sx. she has severe upper abd pain, worse with coughing, and has had a dry cough. no recent abx or travel. significant diarrhea without blood. the history was cut short as the pt could not speak without coughing. Review of Systems 2 Review of Systems: limited due to coughing Constitutional: Constitutional: Reports fatigue and Reports fever(s) Eyes: Eyes: Denies change in vision and Denies photophobia Cardiovascular: Cardiovascular: Denies chest pain and Denies leg edema Respiratory: Respiratory: Reports cough and Denies wheezing Gastrointestinal: Gastrointestinal: Reports abdominal pain, Denies melena, Denies coffee ground emesis, Reports diarrhea, Reports nausea, Reports vomiting and Denies hematemesis Genitourinary: Genitourinary: Reports dysuria Musculoskeletal: Musculoskeletal: Reports back pain Integumentary/Breasts: Skin/Breast: Denies rash Neurologic: Denies confusion Psychiatric: Psychiatric: Denies confusion Endocrine: Endocrine: Reports fatigue Allergic/Immunologic: Allergic/Immunologic: Denies wheezing [facility] Medical History History of constipation Altered bowel habits COVID-19 Vitamin B12 deficiency Osteoarthritis, hip, bilateral Dextroscoliosis of thoracolumbar spine Facial skin lesion Generalized anxiety disorder Dyspnea on exertion Left bundle branch block Chronic right hip pain Acquired renal cyst of left kidney 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 Mother Arthritis Son No problems noted. Daughter No problems noted. Brother No problems noted. Surgical History (Updated 11/16/24 @ 13:11 by KIT Herrera) Hx of colonoscopy History of esophagogastroduodenoscopy (EGD) History of intraocular lens implant Social History Housing: Condominium Alcohol intake: former Patient Tobacco Use Status: Never used Tobacco Tobacco use type: Cigarette Smoked in Last 30 Days: No e-Cigarette/Vaping Use: Never Used Second Hand Smoke Exposure: Yes Use of substances other than those prescribed or required for medical reasons: No Advance Directives: Yes Advance Directives on File: Yes Advance Directives Date on File: 03/11/24 Do you have a plan to hurt others: No Plan service: No Current occupational status: retired Current occupation: Retired Cognitive needs: No Hearing needs: No Vision needs: Yes Narrative: no smoking or etoh Meds Allergies Allergy/AdvReac Type Severity Reaction Status Date / Time No Known Allergies Allergy Verified 12/05/24 17:49 Active Medications: Current Medications Acetaminophen (Acetaminophen 325 Mg Tablet) 975 mg PO Q6H PRN PRN Reason: Pain, Mild 1-3,fever,headache Benzonatate (Benzonatate 100 Mg Capsule) 100 mg PO TID PRN PRN Reason: Cough Calcium Carbonate (Calcium Carbonate 750 Mg Tab.Chew) 750 mg PO Q4H PRN PRN Reason: Heartburn Ceftriaxone Sodium (Ceftriaxone Sodium 1 Gm Vial) 1 gm IVPUSH Q24H DAWNA Enoxaparin Sodium (Enoxaparin Sodium 40 Mg/0.4 Ml Syringe) 40 mg SUBCUT Q24H DAWNA Magnesium Hydroxide (Milk Of Magnesia 30 Ml Oral.Susp) 30 ml PO DAILY PRN PRN Reason: Constipation Melatonin (Melatonin 3 Mg Tablet) 6 mg PO BEDTIME PRN PRN Reason: Insomnia Ondansetron HCl (Ondansetron Hcl 4 Mg/2 Ml Vial) 4 mg IVPUSH Q8H PRN PRN Reason: Nausea and Vomiting Oxycodone HCl (Oxycodone Hcl Immed Release 5 Mg Tablet) 5 mg PO Q6H PRN PRN Reason: Pain, Moderate(Pain Scale 4-6) Sodium Chloride (0.9 % Sodium Chloride Flush 3 Ml Syringe) 3 ml IVFLUSH QSHIFT [facility] Home Medications ?Medication ?Instructions ?Recorded ?Confirmed ?Last Taken ?Type denosumab 60 mg/mL subcutaneous 60 mg subcut [id number] 05/25/20 10/05/24 4 Months Ago History syringe (Prolia) ~06/01/24 acetaminophen 500 mg tablet 1,000 mg PO BID PRN pain 05/17/23 10/05/24 Unknown History (Tylenol Extra Strength) buspirone 7.5 mg tablet 7.5 mg PO BEDTIME 10/02/24 10/05/24 10/04/24 History furosemide 20 mg tablet 20 mg PO DAILY PRN Foot swelling 10/02/24 10/05/24 Unknown History propranolol 60 mg tablet mg PO 11/16/24 Unknown History Physical Exam 2 Vital Signs and Narrative: Vital Signs: Last Vital Signs Temp 98 F 12/06/24 02:00 Pulse 70 12/06/24 02:00 Resp 16 12/05/24 23:00 BP 116/57 L 12/06/24 02:00 Pulse Ox 97 12/06/24 02:00 O2 Del Method Room Air 12/05/24 23:00 BMI result Body Mass Index 20.9 General: AOx3, constant dry cough Resp: CTA bilaterally. no wheezing. CVS: S1, S2, RRR GI: +BS, tender throughout, no distention Skin: Warm, dry Neuro: Cranial nerves II-XII grossly intact bilaterally. Motor grossly intact bilaterally Extremities: No LE edema Psych: Appropriate affect Const: General: No confusion Orientation/consciousness: No confusion Eyes: Direct Ophthalmoscopy: No photophobia Neuro: General: No confusion Results Labs 12/05/24 18:09 12/05/24 18:09 Labs: Laboratory Results - last 24 hr 12/05/24 12/05/24 12/05/24 18:09 18:10 18:15 MCV 101.9 H MCH 32.8 MCHC 32.2 RDW 14.3 Plt Count 218 MPV 11.1 Immature Gran % (Auto) 0.5 H Neut % (Auto) 81.8 H Lymph % (Auto) 9.6 L [place] % (Auto) 7.8 Eos % (Auto) 0.1 Baso % (Auto) 0.2 Lymph # (Auto) 1.2 [place] # (Auto) 1.0 Eos # (Auto) 0.0 Baso # (Auto) 0.0 Abs Immat Gran (auto) 0.07 H Absolute Neuts (auto) 10.6 H Absolute Nucleated RBC 0.000 Nucleated RBC % (auto) 0.0 VBG pH 7.47 H VBG pCO2 36 VBG pO2 58 VBG HCO3 26 VBG O2 Saturation 91.0 VBG Base Excess 2.8 Anion Gap 13 Estim Creat Clear Calc 37.5 Estimated GFR 57 Random Glucose 103 Lactic Acid 1.1 Calcium 8.3 L D Magnesium 1.9 Total Bilirubin 0.6 AST 32 H ALT 8 Alkaline Phosphatase 62 B-Natriuretic Peptide 243 H Total Protein 6.2 L Albumin 3.3 L Lipase 22 Urine Color Urine Appearance Urine pH Ur Specific [place] Urine Protein Urine Glucose (UA) Urine Ketones Urine Blood Urine Nitrite Ur Leukocyte Esterase Urine RBC Urine WBC Ur Squamous Epith Cells Other Crystals Urine Bacteria Hyaline Casts C. difficile Tox B Gene Influenza Type A (PCR) NEGATIVE Influenza Type B (PCR) NEGATIVE RSV RNA Qual (PCR) NEGATIVE SARS-CoV-2 RNA (RT-PCR) NEGATIVE 12/05/24 12/06/24 18:23 03:57 MCV MCH MCHC RDW Plt Count MPV Immature Gran % (Auto) Neut % (Auto) Lymph % (Auto) [place] % (Auto) Eos % (Auto) Baso % (Auto) Lymph # (Auto) [place] # (Auto) Eos # (Auto) Baso # (Auto) Abs Immat Gran (auto) Absolute Neuts (auto) Absolute Nucleated RBC Nucleated RBC % (auto) VBG pH VBG pCO2 VBG pO2 VBG HCO3 VBG O2 Saturation VBG Base Excess Anion Gap Estim Creat Clear Calc Estimated GFR Random Glucose Lactic Acid Calcium Magnesium Total Bilirubin AST ALT Alkaline Phosphatase B-Natriuretic Peptide Total Protein Albumin Lipase Urine Color Dark Yellow Urine Appearance Cloudy Urine pH >= 9.0 Ur Specific [place] >= 1.030 H Urine Protein 300 (3+) H Urine Glucose (UA) Negative Urine Ketones 15 Urine Blood Negative Urine Nitrite Positive H Ur Leukocyte Esterase Moderate (2+) H Urine RBC 6-10 H Urine WBC >50 H Ur Squamous Epith Cells 3-5 Other Crystals Present Urine Bacteria 4+ Hyaline Casts 6-10 C. difficile Tox B Gene NEGATIVE Influenza Type A (PCR) Influenza Type B (PCR) RSV RNA Qual (PCR) SARS-CoV-2 RNA (RT-PCR) Assessment and Plan (1) Sepsis: Status: Acute (2) Urinary tract infection: Status: Acute (3) Cough: Status: Acute (4) Chronic anemia: Status: Acute (5) Diarrhea: Status: Acute (6) Abdominal pain: Status: Acute Plan pt is an 89 yo f with a pmhx significant for HTN, CAD, GERD, LBBB, chronic low back pain due to disc disease, and spinal stenosis, who presented to the ED due to dysuria, nausea, vomiting, diarrhea, and inability to eat or drink for the past 3 days due to her sx. sepsis secondary to UTI - WBC 12.0, t max of 102.9, tachycardic and tachypneic, lactic acid normal, blood cultures x2 pending - CXR negative - UA+ , culture pending - COVID/flu/RSV negative - given 30cc/kg bolus and additional L of IVF with good response - started on ceftraixone and azithromycin with concern for PNA, CXR without PNA. continue ceftriaxone - monitor CBC and BMP cough - no wheezing on exam. constant dry cough - CXR negative - COIVD/flu/RSV negative - CTA to r/o PE - tessalon TID PRN for cough diarrhea, nausea, vomiting, abd pain - c diff negative - A/P CT ordered - zofran for nausea - GI panel ordered - IVF as above - Clear liquid diet - BNP elevated due to dehydration - monitor CBC and BMP chronic anemia - hgb 10.2, hct 31.7, stable - no need for blood transfusion at this time - follow CBC HTN - hold BP meds, resume when appropriate CAD - continue home meds GERD - continue home meds LBBB - seen on EKG, chronic DNR/DNI VTE prophy: lovenox Pt with sepsis secondary to UTI, requiring admission for at least 2 midnights stay for IV abx. Quality Stroke Does the patient have a stroke diagnosis?: No VTE Prior VTE?: No VTE Risk Level:: Medical - moderate - high VTE Device Contraindication: Treatment Not Indicated VTE Drug Contraindication: N/A - Med Ordered
[2024-12-06] MEDS: Benzonatate 100 MG CAPSULE PO (05:24)
[2024-12-06] MEDS: iohexoL 350 MG/ML 100 ML INFUS..BTL 85 ML IV (06:27)
[2024-12-06] MEDS: 0.9 % Sodium Chloride Flush 3 ML SYRINGE IVFLUSH ×3 (07:36→23:31)
[2024-12-06] MEDS: Acetaminophen 325 MG TABLET 975 MG PO ×2 (07:37→15:43)
--- NOTE | 2024-12-06 07:40 | PC.NURSE ---
pt incontinent of urine and large amount of yellow gelatinous stool. pericare performed. pt noted to be hot to the touch. rectal temp obtained displaying 102.8 - prn tylenol utilized. effectiveness pending.
[2024-12-06] MEDS: Enoxaparin Sodium 40 MG/0.4 ML SYRINGE SUBCUT (08:06)
[2024-12-06] MEDS: metroNIDAZOLE/NS 500 MG/100 ML PIGGYBACK 100 MG IV ×3 (08:06→23:30)
[2024-12-06] MEDS: guaiFENesin 200 MG/10 ML 10 ML LIQUID PO ×3 (08:06→23:44)
--- NOTE | 2024-12-06 08:10 | PC.NURSE ---
pt medicated per provider order. hospitalist bedside speaking w/ pt in regards to plan of care at this time.
--- NOTE | 2024-12-06 08:13 | P.CNGI_ITS ---
History of Present Illness Data of Consult Service Date: 12/06/24 Requesting physician: Patrick Diane Primary Care Provider: Unknown Physician HPI Reason for consult: left colitis with weight loss 89 YF with hypertension, coronary artery disease, GERD, left bundle-branch block, chronic lower back pain secondary to disc disease, and spinal stenosis seen at [facility] on 12/05/24 for evaluation of feeling sick for 2 days. Patient stated that she he was not been able to eat or drink with dry heaving and multiple episodes of loose diarrheal stools for the last 2 days. Pt reported that she had nothing to eat since , 12/03/2024 (3 days) and was only been able to drink small amounts of fluid. She complained of feeling weak, dizzy and lightheaded and felt hot and cold at home but did not take her temperature. She had a nonproductive cough and denied chest pain or shortness of breath. She was complaining of lower abdominal pain that she describes as a ?stomach pain? which is 8/10 at its worst. She described the diarrhea as loose and runny with no blood in the diarrhea. Pt reports abd pain is 7/10 today and slightly improved from yesterday. Diarrhea is better. Appetite is still decreased though she tolerate some broth. Patient was hospitalized at [facility] 09/30/2024 with a diagnosis of acute diarrhea and urinary tract infection. In reviewing that record the patient had watery diarrhea for 4 days with associated lower abdominal pain, nausea but no vomiting. She had no dysuria but urine culture was positive for Proteus mirabilis which was pansensitive. She was treated with ceftriaxone and discharged on oral antibiotics.ysuria, nausea, vomiting, diarrhea, and inability to eat or drink for the past 3 days due to her sx. she has severe upper abd pain, worse with coughing, and has had a dry cough. no recent abx or travel. significant diarrhea without blood. the history was cut short as the pt could not speak without coughing. Pt had a [place] colon[place] [address] Epps 12/06/[address] SCAN SHOWED: 1. Colitis left hemicolon. No significant diverticular disease. 2. 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 Underlying mass can not be excluded. The cystic component has progressed on serial studies and therefore obstructive calices can be considered 3. Mild pleural-parenchymal disease lung bases. Mesenteric edema. Moderate free fluid in the pelvis. Diverticulosis coli. Review of Systems 2 Review of Systems: limited due to coughing Constitutional: Constitutional: Reports fatigue and Reports fever(s) Eyes: Eyes: Denies change in vision and Denies photophobia Cardiovascular: Cardiovascular: Denies chest pain and Denies leg edema Respiratory: Respiratory: Reports cough and Denies wheezing Gastrointestinal: Gastrointestinal: Reports abdominal pain, Denies melena, Denies coffee ground emesis, Reports diarrhea, Reports nausea, Reports vomiting and Denies hematemesis Genitourinary: Genitourinary: Reports dysuria Musculoskeletal: Musculoskeletal: Reports back pain Integumentary/Breasts: Skin/Breast: Denies rash Neurologic: Denies confusion Psychiatric: Psychiatric: Denies confusion Endocrine: Endocrine: Reports fatigue Allergic/Immunologic: Allergic/Immunologic: Denies wheezing PMFSH Past Medical History Medical History History of constipation Altered bowel habits COVID-19 Vitamin B12 deficiency Osteoarthritis, hip, bilateral Dextroscoliosis of thoracolumbar spine Facial skin lesion Generalized anxiety disorder Dyspnea on exertion Left bundle branch block Chronic right hip pain Acquired renal cyst of left kidney 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 Mother Arthritis Son No problems noted. Daughter No problems noted. Brother No problems noted. Surgical History Surgical History (Updated 12/06/24 @ 09:19 by Anita Rodriguez MD) Hx of colonoscopy History of esophagogastroduodenoscopy (EGD) History of intraocular lens implant Social History Social History Household Members: None Housing: Apartment Do you presently have visiting nurse or other home services: No Alcohol intake: former Patient Tobacco Use Status: Never used Tobacco Tobacco use type: Cigarette e-Cigarette/Vaping Use: Never Used Second Hand Smoke Exposure: Yes Advance Directives Date on File: 03/11/24 service: No Current occupational status: retired Current occupation: Retired Cognitive needs: No Hearing needs: No Vision needs: Yes Meds Allergies Allergy/AdvReac Type Severity Reaction Status Date / Time No Known Allergies Allergy Verified 12/05/24 17:49 Active Medications: Current Medications Acetaminophen (Acetaminophen 325 Mg Tablet) 975 mg PO Q6H PRN PRN Reason: Pain, Mild 1-3,fever,headache Last Admin: 12/06/24 07:37 Dose: 975 mg Benzonatate (Benzonatate 100 Mg Capsule) 100 mg PO TID PRN PRN Reason: Cough Last Admin: 12/06/24 05:24 Dose: 100 mg Calcium Carbonate (Calcium Carbonate 750 Mg Tab.Chew) 750 mg PO Q4H PRN PRN Reason: Heartburn Ceftriaxone Sodium (Ceftriaxone Sodium 1 Gm Vial) 1 gm IVPUSH Q24H DAWNA Enoxaparin Sodium (Enoxaparin Sodium 40 Mg/0.4 Ml Syringe) 40 mg SUBCUT Q24H [facility] Last Admin: 12/06/24 08:06 Dose: 40 mg Guaifenesin (Guaifenesin 200 Mg/10 Ml 10 Ml Liquid) 10 ml PO Q4H PRN PRN Reason: Cough Last Admin: 12/06/24 08:06 Dose: 10 ml Metronidazole (Flagyl) 500 mg in 100 mls @ 100 mls/hr IV Q8H [facility] Last Admin: 12/06/24 08:06 Dose: 100 mls/hr Magnesium Hydroxide (Milk Of Magnesia 30 Ml Oral.Susp) 30 ml PO DAILY PRN PRN Reason: Constipation Melatonin (Melatonin 3 Mg Tablet) 6 mg PO BEDTIME PRN PRN Reason: Insomnia Ondansetron HCl (Ondansetron Hcl 4 Mg/2 Ml Vial) 4 mg IVPUSH Q8H PRN PRN Reason: Nausea and Vomiting Oxycodone HCl (Oxycodone Hcl Immed Release 5 Mg Tablet) 5 mg PO Q6H PRN PRN Reason: Pain, Moderate(Pain Scale 4-6) Sodium Chloride (0.9 % Sodium Chloride Flush 3 Ml Syringe) 3 ml IVFLUSH QSHIFT [facility] Last Admin: 12/06/24 07:36 Dose: 3 ml Home Medications ?Medication ?Instructions ?Recorded ?Confirmed ?Last Taken ?Type denosumab 60 mg/mL subcutaneous 60 mg subcut [id number] 05/25/20 12/06/24 4 Months Ago History syringe (Prolia) ~06/01/24 acetaminophen 500 mg tablet 1,000 mg PO BID pain 05/17/23 12/06/24 Unknown History (Tylenol Extra Strength) buspirone 7.5 mg tablet 7.5 mg PO BEDTIME 10/02/24 12/06/24 10/04/24 History cholecalciferol (vitamin D3) 25 25 mcg PO DAILY 12/06/24 12/06/24 Unknown History mcg (1,000 unit) tablet omeprazole 20 mg capsule,delayed 20 mg PO DAILY@0630 12/06/24 12/06/24 Unknown History release primidone 50 mg tablet 150 mg PO BEDTIME 12/06/24 12/06/24 Unknown History propranolol 60 mg capsule,24 60 mg PO DAILY 12/06/24 12/06/24 Unknown History hr,extended release Physical Exam 2 Vital Signs: Vital Signs: Last Vital Signs Temp 102.8 F H 12/06/24 07:33 Pulse 89 12/06/24 07:33 Resp 14 12/06/24 07:33 BP 146/67 H 12/06/24 07:33 Pulse Ox 95 12/06/24 07:33 O2 Del Method Room Air 12/06/24 07:33 BMI result Body Mass Index 20.9 General: AO X 3, frail, Resp: CTA bilateral, no accessory muscles used CVS: S1,S2,RRR GI: soft, llq tender, non distended Neuro: motor grossly intact, alert Psych: appropriate affect, appropriate insight Const: General: No confusion Orientation/consciousness: No confusion Eyes: Direct Ophthalmoscopy: No photophobia Neuro: General: No confusion Results Labs 12/06/24 09:52 12/06/24 09:52 Labs: Short CBC 12/05/24 Range/Units 18:09 WBC 12.9 H (4.8-10.8) X10*3/uL Hgb 10.2 L (12.0-16.0) g/dl Hct 31.7 L (37.0-47.0) % Plt Count 218 (160-400) X10*3/uL BMP 12/05/24 18:09 Sodium 136 Potassium 3.9 Chloride 106 Carbon Dioxide 21 L BUN 22 H Creatinine 0.93 Calcium 8.3 L D Liver Function 12/05/24 Range/Units 18:09 Total Bilirubin 0.6 (0.0-1.0) mg/dL AST 32 H (5-31) U/L ALT 8 (0-31) U/L Alkaline Phosphatase 62 (39-117) U/L Albumin 3.3 L (3.5-5.0) g/dL Urine 12/05/24 Range/Units 18:23 Urine Color Dark Yellow Urine Appearance Cloudy Urine pH >= 9.0 (5.0-9.0) Ur Specific [place] >= 1.030 H (1.005-1.025) Urine Protein 300 (3+) H (Neg-Trace) mg/dL Urine Glucose (UA) Negative (Negative) mg/dL Assessment and Plan (1) Abdominal pain: Status: Acute (2) Diarrhea: Status: Acute (3) Chronic anemia: Status: Acute Plan 89 YF with hypertension, coronary artery disease, GERD, left bundle-branch block, chronic lower back pain secondary to disc disease, and spinal stenosis admitted to [facility] on 12/05/24 with abdominal pain and diarrhea. C Diff toxin was negative Symptoms are likely due to infectious or ischemic colitis. Of note pt was seen by Dr Bell in the GI clinic and is being scheduled for a CT colonography for evaluation of anemia RECOMMENDATIONS: 1. Agree with IV antibiotics, antiemetics and PPI. 2. Await results of GI panel Procedures Date of Service Date of Service: 12/06/24
--- NOTE | 2024-12-06 08:28 | HO.PM.IMPN ---
Subjective Subjective Date of Service: 12/06/24 Interval History: abd pain, fevers Physical Exam Vital Signs: Vital Signs: Last Vital Signs Temp 102.8 F H 12/06/24 07:33 Pulse 89 12/06/24 07:33 Resp 14 12/06/24 07:33 BP 146/67 H 12/06/24 07:33 Pulse Ox 95 12/06/24 07:33 O2 Del Method Room Air 12/06/24 07:33 BMI result Body Mass Index 20.9 General: AO X 3, frail, Resp: CTA bilateral, no accessory muscles used CVS: S1,S2,RRR GI: soft, llq tender, non distended Neuro: motor grossly intact, alert Psych: appropriate affect, appropriate insight Objective Data Active Medications Acetaminophen (Acetaminophen 325 Mg Tablet) 975 mg PO Q6H PRN PRN Reason: Pain, Mild 1-3,fever,headache Last Admin: 12/06/24 07:37 Dose: 975 mg Documented By: LUISANA Benzonatate (Benzonatate 100 Mg Capsule) 100 mg PO TID PRN PRN Reason: Cough Last Admin: 12/06/24 05:24 Dose: 100 mg Documented By: JHONY Calcium Carbonate (Calcium Carbonate 750 Mg Tab.Chew) 750 mg PO Q4H PRN PRN Reason: Heartburn Ceftriaxone Sodium (Ceftriaxone Sodium 1 Gm Vial) 1 gm IVPUSH Q24H [facility] Enoxaparin Sodium (Enoxaparin Sodium 40 Mg/0.4 Ml Syringe) 40 mg SUBCUT Q24H [facility] Last Admin: 12/06/24 08:06 Dose: 40 mg Documented By: LUISANA Guaifenesin (Guaifenesin 200 Mg/10 Ml 10 Ml Liquid) 10 ml PO Q4H PRN PRN Reason: Cough Last Admin: 12/06/24 08:06 Dose: 10 ml Documented By: LUISANA Metronidazole (Flagyl) 500 mg in 100 mls @ 100 mls/hr IV Q8H [facility] Last Admin: 12/06/24 08:06 Dose: 100 mls/hr Documented By: LUISANA Magnesium Hydroxide (Milk Of Magnesia 30 Ml Oral.Susp) 30 ml PO DAILY PRN PRN Reason: Constipation Melatonin (Melatonin 3 Mg Tablet) 6 mg PO BEDTIME PRN PRN Reason: Insomnia Ondansetron HCl (Ondansetron Hcl 4 Mg/2 Ml Vial) 4 mg IVPUSH Q8H PRN PRN Reason: Nausea and Vomiting Oxycodone HCl (Oxycodone Hcl Immed Release 5 Mg Tablet) 5 mg PO Q6H PRN PRN Reason: Pain, Moderate(Pain Scale 4-6) Primidone (Primidone 50 Mg Tablet) 100 mg PO BID [facility] Sodium Chloride (0.9 % Sodium Chloride Flush 3 Ml Syringe) 3 ml IVFLUSH QSHIFT DAWNA Last Admin: 12/06/24 07:36 Dose: 3 ml Documented By: LUISANA Labs 12/05/24 18:09 12/05/24 18:09 Labs: Laboratory Results - last 24 hr 12/05/24 12/05/24 12/05/24 18:09 18:10 18:15 MCV 101.9 H MCH 32.8 MCHC 32.2 RDW 14.3 Plt Count 218 MPV 11.1 Immature Gran % (Auto) 0.5 H Neut % (Auto) 81.8 H Lymph % (Auto) 9.6 L [place] % (Auto) 7.8 Eos % (Auto) 0.1 Baso % (Auto) 0.2 Lymph # (Auto) 1.2 [place] # (Auto) 1.0 Eos # (Auto) 0.0 Baso # (Auto) 0.0 Abs Immat Gran (auto) 0.07 H Absolute Neuts (auto) 10.6 H Absolute Nucleated RBC 0.000 Nucleated RBC % (auto) 0.0 VBG pH 7.47 H VBG pCO2 36 VBG pO2 58 VBG HCO3 26 VBG O2 Saturation 91.0 VBG Base Excess 2.8 Anion Gap 13 Estim Creat Clear Calc 37.5 Estimated GFR 57 Random Glucose 103 Lactic Acid 1.1 Calcium 8.3 L D Magnesium 1.9 Total Bilirubin 0.6 AST 32 H ALT 8 Alkaline Phosphatase 62 B-Natriuretic Peptide 243 H Total Protein 6.2 L Albumin 3.3 L Lipase 22 Urine Color Urine Appearance Urine pH Ur Specific [place] Urine Protein Urine Glucose (UA) Urine Ketones Urine Blood Urine Nitrite Ur Leukocyte Esterase Urine RBC Urine WBC Ur Squamous Epith Cells Other Crystals Urine Bacteria Hyaline Casts C. difficile Tox B Gene Influenza Type A (PCR) NEGATIVE Influenza Type B (PCR) NEGATIVE RSV RNA Qual (PCR) NEGATIVE SARS-CoV-2 RNA (RT-PCR) NEGATIVE 12/05/24 12/06/24 18:23 03:57 MCV MCH MCHC RDW Plt Count MPV Immature Gran % (Auto) Neut % (Auto) Lymph % (Auto) [place] % (Auto) Eos % (Auto) Baso % (Auto) Lymph # (Auto) [place] # (Auto) Eos # (Auto) Baso # (Auto) Abs Immat Gran (auto) Absolute Neuts (auto) Absolute Nucleated RBC Nucleated RBC % (auto) VBG pH VBG pCO2 VBG pO2 VBG HCO3 VBG O2 Saturation VBG Base Excess Anion Gap Estim Creat Clear Calc Estimated GFR Random Glucose Lactic Acid Calcium Magnesium Total Bilirubin AST ALT Alkaline Phosphatase B-Natriuretic Peptide Total Protein Albumin Lipase Urine Color Dark Yellow Urine Appearance Cloudy Urine pH >= 9.0 Ur Specific [place] >= 1.030 H Urine Protein 300 (3+) H Urine Glucose (UA) Negative Urine Ketones 15 Urine Blood Negative Urine Nitrite Positive H Ur Leukocyte Esterase Moderate (2+) H Urine RBC 6-10 H Urine WBC >50 H Ur Squamous Epith Cells 3-5 Other Crystals Present Urine Bacteria 4+ Hyaline Casts 6-10 C. difficile Tox B Gene NEGATIVE Influenza Type A (PCR) Influenza Type B (PCR) RSV RNA Qual (PCR) SARS-CoV-2 RNA (RT-PCR) Microbiology Microbiology Results: Microbiology 12/05/24 18:09 Blood Culture - Preliminary Blood - Venous Prelim: GNR Gram Stain only Assessment and Plan (1) CAD (coronary artery disease): Status: Acute Plan 89F PMH coronary disease, hypertension, essential tremor with recent unintentional weight loss presented with abdominal pain, fevers Sepsis due to colitis and urinary tract infection Continue ceftriaxone and Flagyl Follow up cultures, GI eval Cough Likely due to aspiration pneumonitis Symptomatic management Unintentional weight loss Reports that suspicious renal lesion and hepatic cysts are chronic Oncology eval Hypertension Holding antihypertensives for low normal blood pressures Essential tremor Primidone DVT prophylaxis with Lovenox DNR/DNI reason for continued hospitalization: Septic Quality Stroke Does the patient have a stroke diagnosis?: No VTE Prior VTE?: No VTE Risk Level:: Medical - moderate - high VTE Device Contraindication: Treatment Not Indicated VTE Drug Contraindication: N/A - Med Ordered
--- NOTE | 2024-12-06 09:04 | PM.HEMONCCN ---
Subjective - Subjective Chief complaint: Fever Patient: new to practice Consult date: 12/07/24 Primary Care Provider: Unknown Physician Municipal Engineer Utilized?: No - [place]i Speaking HPI - Consult Narrative Reason for consult: Left kidney mass/complex cyst Narrative: Jocelyn Mejia is a 89 year old female with past medical history significant for hypertension, chronic low back pain, spinal stenosis who presented with complaints of fever up to 103 degree F associated with nausea vomiting and diarrhea. Patient says that she has been feeling poorly on and off for several months. It has been told of left kidney mass for many years, she saw fruit and vegetable inspector previously for this. She has history of chronic low back pain and receives intermittent steroid injections. Says she has had over 100 lb weight loss in the last 2-3 years ever since her . She was diagnosed with COVID-19 infection a few months ago when she was at rehab in [place]. She says the fever started over the weekend, she denies any dysuria or hematuria. She has bilateral flank pain. Denies chest pain, cough, sore throat, headache or dizziness. Review of Systems - Constitutional Reports as per HPI - Neurologic Denies confusion PMFSH Medical History: Medical History (Last Reviewed 12/06/24 @ 08:53 by Carline Fam RN) Acquired renal cyst of left kidney Altered bowel habits CAD (coronary artery disease) Chronic low back pain with sciatica Chronic right hip pain COVID-19 Dextroscoliosis of thoracolumbar spine Dyspnea on exertion Essential hypertension Facial skin lesion Fecal incontinence Generalized anxiety disorder GERD with esophagitis History of constipation Insomnia Onset Date: Unknown Left bundle branch block Lumbar disc herniation with radiculopathy Mixed dyslipidemia Osteoarthritis Osteoarthritis, hip, bilateral Osteoporosis Severe scoliosis Spinal stenosis of lumbar region at multiple levels Vitamin B12 deficiency Family History: Family History (Last Reviewed 11/16/24 @ 13:11 by KIT Herrera) Father No problems noted. Mother Arthritis Son No problems noted. Daughter No problems noted. Brother No problems noted. Surgical History: Surgical History (Last Reviewed 12/06/24 @ 08:53 by Carline Fam RN) History of esophagogastroduodenoscopy (EGD) History of intraocular lens implant Hx of colonoscopy Social History: Social History (Last Reviewed 11/16/24 @ 13:11 by Tatianna Filemon, RMA) Living Situation History: Household Members: None Housing: Apartment Do you presently have visiting nurse or other home services: No Tobacco History: Patient Tobacco Use Status: Never used Tobacco Tobacco use type: Cigarette e-Cigarette/Vaping Use: Never Used Second Hand Smoke Exposure: Yes Advance Directives: Advance Directives Date on File: 03/11/24 Occupation Assessmet: service: No Current occupational status: retired Current occupation: Retired Home Medications and Allergies Current Medications: Current Medications Acetaminophen (Acetaminophen 325 Mg Tablet) 975 mg PO Q6H PRN PRN Reason: Pain, Mild 1-3,fever,headache Last Admin: 12/06/24 07:37 Dose: 975 mg Benzonatate (Benzonatate 100 Mg Capsule) 100 mg PO TID PRN PRN Reason: Cough Last Admin: 12/06/24 05:24 Dose: 100 mg Calcium Carbonate (Calcium Carbonate 750 Mg Tab.Chew) 750 mg PO Q4H PRN PRN Reason: Heartburn Ceftriaxone Sodium (Ceftriaxone Sodium 1 Gm Vial) 1 gm IVPUSH Q24H [facility] Enoxaparin Sodium (Enoxaparin Sodium 40 Mg/0.4 Ml Syringe) 40 mg SUBCUT Q24H [facility] Last Admin: 12/06/24 08:06 Dose: 40 mg Guaifenesin (Guaifenesin 200 Mg/10 Ml 10 Ml Liquid) 10 ml PO Q4H PRN PRN Reason: Cough Last Admin: 12/06/24 08:06 Dose: 10 ml Metronidazole (Flagyl) 500 mg in 100 mls @ 100 mls/hr IV Q8H [facility] Last Admin: 12/06/24 08:06 Dose: 100 mls/hr Magnesium Hydroxide (Milk Of Magnesia 30 Ml Oral.Susp) 30 ml PO DAILY PRN PRN Reason: Constipation Melatonin (Melatonin 3 Mg Tablet) 6 mg PO BEDTIME PRN PRN Reason: Insomnia Ondansetron HCl (Ondansetron Hcl 4 Mg/2 Ml Vial) 4 mg IVPUSH Q8H PRN PRN Reason: Nausea and Vomiting Oxycodone HCl (Oxycodone Hcl Immed Release 5 Mg Tablet) 5 mg PO Q6H PRN PRN Reason: Pain, Moderate(Pain Scale 4-6) Primidone (Primidone 50 Mg Tablet) 100 mg PO BID [facility] Sodium Chloride (0.9 % Sodium Chloride Flush 3 Ml Syringe) 3 ml IVFLUSH QSHIFT [facility] Last Admin: 12/06/24 07:36 Dose: 3 ml Home Medications ?Medication ?Instructions ?Recorded ?Confirmed ?Type denosumab 60 mg/mL subcutaneous 60 mg subcut [id number] 05/25/20 12/06/24 History syringe (Prolia) acetaminophen 500 mg tablet 1,000 mg PO BID pain 05/17/23 12/06/24 History (Tylenol Extra Strength) buspirone 7.5 mg tablet 7.5 mg PO BEDTIME 10/02/24 12/06/24 History cholecalciferol (vitamin D3) 25 25 mcg PO DAILY 12/06/24 12/06/24 History mcg (1,000 unit) tablet omeprazole 20 mg capsule,delayed 20 mg PO DAILY@0630 12/06/24 12/06/24 History release primidone 50 mg tablet 150 mg PO BEDTIME 12/06/24 12/06/24 History propranolol 60 mg capsule,24 60 mg PO DAILY 12/06/24 12/06/24 History hr,extended release Allergies Allergy/AdvReac Type Severity Reaction Status Date / Time No Known Allergies Allergy Verified 12/05/24 17:49 Physical Exam Vital signs: Vital Signs Temp 102.8 F H 12/06/24 07:33 Pulse 89 12/06/24 07:33 Resp 14 12/06/24 07:33 BP 146/67 H 12/06/24 07:33 Pulse Ox 95 12/06/24 07:33 O2 Del Method Room Air 12/06/24 07:33 Intake & Output 12/05/24 12/06/24 12/06/24 18:59 06:59 18:59 Intake Total 2957 / 2957 Balance 2957 / 2957 Intake: Intake, IV Amount 2957 / 2957 0.9 % Sodium Chloride 1,707 ml 1707 / 1707 @ 1707 mls/hr IV .Q1H [facility] Rx#: [id number] Azithromycin 500 mg In 0.9 % 250 / 250 Sodium Chloride 250 ml @ 125 mls/hr IV ONCE ONE Rx#: [id number] Lactated Ringers 1,000 ml @ 999 1000 / 1000 mls/hr IV .Q1H1M [facility] Rx#: [id number] Other: Breakfast % Eaten 50% Last Bowel Movement 12/06/24 Weight 56.9 kg Weight 56.9 kg - Constitutional Present: mild distress, average body habitus - Routine HEENT Exam Head: Present: normal inspection Eye: Present: EOMI, conjunctivae pale, PERRL - Routine Neck Exam Present: supple. Absent: lymphadenopathy - Routine Respiratory Exam Present: CTAB - Routine Cardiovascular Exam Cardiovascular: Present: RRR, S1, S2 - Routine Abdominal Exam Present: soft. Absent: distended - Routine Extremities Exam Absent: calf tenderness - Routine Skin Exam Present: intact, pallor - Routine Neurological Exam Present: alert, oriented X3 Hem/Onc Consult Result - Labs CBC & Chem 7: 12/07/24 05:50 12/07/24 05:50 Labs: Short CBC 12/05/24 Range/Units 18:09 WBC 12.9 H (4.8-10.8) X10*3/uL Hgb 10.2 L (12.0-16.0) g/dl Hct 31.7 L (37.0-47.0) % Plt Count 218 (160-400) X10*3/uL BMP 12/05/24 18:09 Sodium 136 Potassium 3.9 Chloride 106 Carbon Dioxide 21 L BUN 22 H Creatinine 0.93 Calcium 8.3 L D Liver Function 12/05/24 Range/Units 18:09 Total Bilirubin 0.6 (0.0-1.0) mg/dL AST 32 H (5-31) U/L ALT 8 (0-31) U/L Alkaline Phosphatase 62 (39-117) U/L Albumin 3.3 L (3.5-5.0) g/dL Urine 12/05/24 Range/Units 18:23 Urine Color Dark Yellow Urine Appearance Cloudy Urine pH >= 9.0 (5.0-9.0) Ur Specific [place] >= 1.030 H (1.005-1.025) Urine Protein 300 (3+) H (Neg-Trace) mg/dL Urine Glucose (UA) Negative (Negative) mg/dL Assessment and Plan Patient Active problem list reviewed?: Yes (1) Complex renal cyst Status: Acute Assessment and plan: 1. This is a pleasant 89-year-old woman presenting with fever, abdominal discomfort who is currently admitted for urosepsis with Gram-negative rods. She is on antibiotics. CT abdomen/pelvis with IV contrast shows colitis of left hemicolon, complex predominantly cystic mass in upper pole of left kidney, underlying mass can not be excluded. CT angiogram of chest shows no PE, likely mild congestive heart failure. I reviewed this with radiologist. This could be the source of her UTI and sepsis. There appears to be hydronephrosis of upper pole of left kidney, decompression could be performed after fever defervesces. Possible malignancy/tumor associated with the complex cyst. Recommend urology consultation. 2. Macrocytic anemia. This has been gradually worsening since 2019. Submit hematological workup. This could be related to underlying infection/malignancy. Primary bone marrow disorder such as myelodysplastic syndrome is also in the differential diagnosis. I thank you for the consultation, will follow with you. - Time Spent With Patient Time Spent with Patient (in minutes): 20 Additional Coding: - Additional E/M codes Complex E/M visit Add On: CPT G2211
[2024-12-06] MEDS: Primidone 50 MG TABLET 100 MG PO ×2 (09:07→20:01)
[2024-12-06 10:00] LABS: Hematocrit 27.6 % (37.0-47.0); Hemoglobin 8.8 g/dl (12.0-16.0); Mean Corpuscular HGB Conc 31.9 g/dl (31.0-35.0); Mean Corpuscular Hemoglobin 32.4 pg (27.0-33.0); Mean Corpuscular Volume 101.5 fL (80.0-98.0); Mean Platelet Volume 10.8 fL (9.4-12.3); Platelet Count 177 X10*3/uL (160-400); Red Blood Count 2.72 X10*6/uL (4.20-5.50); Red Cell Distribution Width 14.1 % (11.0-16.0); White Blood Count 12.5 X10*3/uL (4.8-10.8)
[2024-12-06 10:43] LABS: Anion Gap 11 (12-20); Blood Urea Nitrogen 18 mg/dL (9-16); Calcium 7.4 mg/dL (8.4-10.2); Carbon Dioxide 19 mmol/L (22-29); Chloride 110 mmol/L (96-108); Creatinine Clr Calc Pharmacy 44.2; Estimated Glomerular Filt Rate > 60; Glucose Random 105 mg/dL (60-115); Potassium 3.3 mmol/L (3.3-5.1); Sodium 137 mmol/L (135-145)
--- NOTE | 2024-12-06 11:21 | PHA.MEDREC ---
Addendum entered by Carol Xie RPh 12/06/24 11:33: med rec reviewed by [facility] Original Note: Pharmacy Consult ? Medication Reconciliation Pharmacy has completed the medication reconciliation. Spoke with patient to confirm. She stopped taking furosemide about 2 weeks ago. She is due for Prolia on December 14 and for the B12 injection on Saturday (tomorrow). She has been taking 3 tablest of primidone at bedtime. She is not taking zofran, celebrex, or calcium w/ D3 at home. She takes tylenol scheduled. Patient last took medications Saturday morning, did not take medications Saturday night or Saturday night.
[2024-12-06] MEDS: cefTRIAXone sodium 1 GM VIAL IVPUSH (17:10)
[2024-12-06] MEDS: busPIRone HCl 5 MG TABLET 7.5 MG PO (20:01)
[2024-12-07] VITALS (7 sets, daily range): BP systolic 126–165; BP diastolic 56–72; PULSE 76–88; RESP 14–18; TEMP 36.6–37.1; O2SAT 96–99
[2024-12-07] MEDS: Omeprazole 20 MG CAPSULE.DR PO (06:05)
[2024-12-07 06:08] LABS: Hematocrit 27.6 % (37.0-47.0); Hemoglobin 8.8 g/dl (12.0-16.0); Mean Corpuscular HGB Conc 31.9 g/dl (31.0-35.0); Mean Corpuscular Volume 100.4 fL (80.0-98.0); Mean Platelet Volume 10.9 fL (9.4-12.3); Platelet Count 197 X10*3/uL (160-400); Red Blood Count 2.75 X10*6/uL (4.20-5.50); Red Cell Distribution Width 13.8 % (11.0-16.0); White Blood Count 10.1 X10*3/uL (4.8-10.8)
[2024-12-07 06:24] LABS: Anion Gap 13 (12-20); Blood Urea Nitrogen 16 mg/dL (9-16); Calcium 7.6 mg/dL (8.4-10.2); Carbon Dioxide 19 mmol/L (22-29); Chloride 110 mmol/L (96-108); Creatinine Clr Calc Pharmacy 44.2; Estimated Glomerular Filt Rate > 60; Glucose Random 83 mg/dL (60-115); Potassium 3.5 mmol/L (3.3-5.1); Sodium 138 mmol/L (135-145)
[2024-12-07] MEDS: Cholecalciferol (Vitamin D3) 25 MCG TABLET PO (08:06)
[2024-12-07] MEDS: Propranolol HCL LA 60 MG CAP.SA.24H PO (08:06)
[2024-12-07] MEDS: Primidone 50 MG TABLET 100 MG PO ×2 (08:06→19:23)
[2024-12-07] MEDS: lisinopriL 2.5 MG TABLET PO (08:06)
[2024-12-07] MEDS: 0.9 % Sodium Chloride Flush 3 ML SYRINGE IVFLUSH ×3 (08:07→19:26)
[2024-12-07] MEDS: Enoxaparin Sodium 40 MG/0.4 ML SYRINGE SUBCUT (08:07)
[2024-12-07] MEDS: metroNIDAZOLE/NS 500 MG/100 ML PIGGYBACK 100 MG IV ×3 (08:12→23:30)
--- NOTE | 2024-12-07 08:31 | P.PNIM_ITS ---
Subjective Subjective Date of Service: 12/07/24 Interval History: diarrhea, requresting solid diet Physical Exam 2 Vital Signs: Vital Signs: Last Vital Signs Temp 98.7 F 12/07/24 07:14 Pulse 78 12/07/24 07:14 Resp 14 12/07/24 07:14 BP 145/67 H 12/07/24 07:14 Pulse Ox 97 12/07/24 07:14 O2 Del Method Room Air 12/07/24 07:14 BMI result Body Mass Index 20.9 General: AO X 3, no acute distress, frail Resp: CTA bilateral, no accessory muscles used CVS: S1,S2,RRR GI: soft, non tender, non distended Neuro: motor grossly intact, alert Psych: appropriate affect, appropriate insight Objective Data Active Medications Acetaminophen (Acetaminophen 325 Mg Tablet) 975 mg PO Q6H PRN PRN Reason: Pain, Mild 1-3,fever,headache Last Admin: 12/06/24 15:43 Dose: 975 mg Documented By: DARLING Benzonatate (Benzonatate 100 Mg Capsule) 100 mg PO TID PRN PRN Reason: Cough Last Admin: 12/06/24 05:24 Dose: 100 mg Documented By: JHONY Buspirone HCl (Buspirone Hcl 5 Mg Tablet) 7.5 mg PO BEDTIME [facility] Last Admin: 12/06/24 20:01 Dose: 7.5 mg Documented By: VOLODYMYR Calcium Carbonate (Calcium Carbonate 750 Mg Tab.Chew) 750 mg PO Q4H PRN PRN Reason: Heartburn Ceftriaxone Sodium (Ceftriaxone Sodium 1 Gm Vial) 1 gm IVPUSH Q24H [facility] Last Admin: 12/06/24 17:10 Dose: 1 gm Documented By: DARLING Enoxaparin Sodium (Enoxaparin Sodium 40 Mg/0.4 Ml Syringe) 40 mg SUBCUT Q24H [facility] Last Admin: 12/07/24 08:07 Dose: 40 mg Documented By: DARLING Guaifenesin (Guaifenesin 200 Mg/10 Ml 10 Ml Liquid) 10 ml PO Q4H PRN PRN Reason: Cough Last Admin: 12/06/24 23:44 Dose: 10 ml Documented By: VOLODYMYR Metronidazole (Flagyl) 500 mg in 100 mls @ 100 mls/hr IV Q8H [facility] Last Admin: 12/07/24 08:12 Dose: 100 mls/hr Documented By: DARLING Lisinopril (Lisinopril 2.5 Mg Tablet) 2.5 mg PO DAILY [facility]; Protocol Last Admin: 12/07/24 08:06 Dose: 2.5 mg Documented By: DARLING Magnesium Hydroxide (Milk Of Magnesia 30 Ml Oral.Susp) 30 ml PO DAILY PRN PRN Reason: Constipation Melatonin (Melatonin 3 Mg Tablet) 6 mg PO BEDTIME PRN PRN Reason: Insomnia Omeprazole (Omeprazole 20 Mg Capsule.Dr) 20 mg PO DAILY@0630 [facility] Last Admin: 12/07/24 06:05 Dose: 20 mg Documented By: VOLODYMYR Ondansetron HCl (Ondansetron Hcl 4 Mg/2 Ml Vial) 4 mg IVPUSH Q8H PRN PRN Reason: Nausea and Vomiting Oxycodone HCl (Oxycodone Hcl Immed Release 5 Mg Tablet) 5 mg PO Q6H PRN PRN Reason: Pain, Moderate(Pain Scale 4-6) Primidone (Primidone 50 Mg Tablet) 100 mg PO BID [facility] Last Admin: 12/07/24 08:06 Dose: 100 mg Documented By: DARLING Propranolol HCl (Propranolol Hcl [place] 60 Mg Cap.Sa.24h) 60 mg PO DAILY [facility]; Protocol Last Admin: 12/07/24 08:06 Dose: 60 mg Documented By: DARLING Sodium Chloride (0.9 % Sodium Chloride Flush 3 Ml Syringe) 3 ml IVFLUSH QSHIFT [facility] Last Admin: 12/07/24 08:07 Dose: 3 ml Documented By: DARLING Vitamin D (Cholecalciferol (Vitamin D3) 25 Mcg Tablet) 25 mcg PO DAILY [facility] Last Admin: 12/07/24 08:06 Dose: 25 mcg Documented By: DARLING Labs 12/07/24 05:50 12/07/24 05:50 Labs: Laboratory Results - last 24 hr 12/06/24 12/07/24 09:52 05:50 MCV 101.5 H 100.4 H MCH 32.4 32.0 MCHC 31.9 31.9 RDW 14.1 13.8 Plt Count 177 197 MPV 10.8 10.9 Absolute Nucleated RBC 0.000 0.000 Nucleated RBC % (auto) 0.0 0.0 Anion Gap 11 L 13 Estim Creat Clear Calc 44.2 44.2 Estimated GFR > 60 > 60 Random Glucose 105 83 Calcium 7.4 L D 7.6 L Microbiology Microbiology Results: Microbiology 12/05/24 18:09 Blood Culture - Preliminary Blood - Venous Prelim: GPC Gram Stain only 12/05/24 18:23 Urine Culture - Preliminary Urine Catheterized - Straight Catheter Culture in progress. 12/05/24 18:09 Blood Culture - Preliminary Blood - Venous Prelim: GNR Gram Stain only Assessment and Plan (1) CAD (coronary artery disease): Status: Acute Plan 89F PMH coronary disease, hypertension, essential tremor with recent unintentional weight loss presented with abdominal pain, fevers Sepsis due to colitis and urinary tract infection, bactremia Continue ceftriaxone and Flagyl Follow up cultures, GI eval, gu eval for obstructing lesion in left kidney Cough Likely due to aspiration pneumonitis Symptomatic management Unintentional weight loss Reports that suspicious renal lesion and hepatic cysts are chronic Oncology eval multifactorial - grief, recurrent infections, ?malignancy Hypertension lisinopril Essential tremor Primidone DVT prophylaxis with Lovenox DNR/DNI reason for continued hospitalization: Septic Quality Stroke Does the patient have a stroke diagnosis?: No VTE Prior VTE?: No VTE Risk Level:: Medical - moderate - high VTE Device Contraindication: Treatment Not Indicated VTE Drug Contraindication: N/A - Med Ordered
--- NOTE | 2024-12-07 09:16 | MHC.CM.PN ---
IMM DELIVERED PT LIVES ALONE AND USES [facility] FOR MOBILITY. PT IS ACTIVE WITH [facility] FOR HOME-MAKING. +HCP ON FILE AND VERIFIED . PCP DR. ARNOLD OF [facility] [place] DP: PT STATES SHE WILL REFUSE REHAB IF RECOMMENDED BUT IS OPEN TO [facility] ON DC. FIRST CHOICE OVERLOOK, SECOND CHOICE IS [facility]. REFERRALS SENT. PT HAS OWN RIDE HOME.
[2024-12-07 14:12] LABS: Adenovirus F 40/41 Not Detected (Not Detect.); Astrovirus Not Detected (Not Detect.); Campylobacter Not Detected (Not Detect.); Cryptosporidium Not Detected (Not Detect.); Cyclospora cayetanensis Not Detected (Not Detect.); E. coli EAEC Not Detected (Not Detect.); E. coli EPEC Not Detected (Not Detect.); E. coli ETEC Not Detected (Not Detect.); E. coli STEC Not Detected (Not Detect.); Entamoeba histolytica Not Detected (Not Detect.); Giardia lamblia Not Detected (Not Detect.); Norovirus GI/GII Not Detected (Not Detect.); Plesiomonas shigelloides Not Detected (Not Detect.); Rotavirus A Not Detected (Not Detect.); Salmonella Not Detected (Not Detect.); Sapovirus Not Detected (Not Detect.); Shigella sp./EIEC Not Detected (Not Detect.); Vibrio Not Detected (Not Detect.); Vibrio Cholerae Not Detected (Not Detect.); Yersinia enterocolitica Not Detected (Not Detect.)
[2024-12-07] MEDS: Acetaminophen 325 MG TABLET 975 MG PO (16:48)
[2024-12-07] MEDS: cefTRIAXone sodium 1 GM VIAL IVPUSH (16:54)
[2024-12-07] MEDS: busPIRone HCl 5 MG TABLET 7.5 MG PO (19:23)
[2024-12-08 02:47] VITALS: BP 150/72; PULSE 77; RESP 16; TEMP 36.9; O2SAT 98
[2024-12-08] MEDS: Omeprazole 20 MG CAPSULE.DR PO (05:35)
[2024-12-08 06:59] LABS: Hemoglobin 8.8 g/dl (12.0-16.0); Mean Corpuscular HGB Conc 32.6 g/dl (31.0-35.0); Mean Corpuscular Hemoglobin 32.6 pg (27.0-33.0); Mean Platelet Volume 11.3 fL (9.4-12.3); Platelet Count 213 X10*3/uL (160-400); Red Cell Distribution Width 13.6 % (11.0-16.0); White Blood Count 7.1 X10*3/uL (4.8-10.8)
[2024-12-08 07:23] VITALS: BP 143/66; PULSE 75; RESP 16; TEMP 37.3; O2SAT 94
[2024-12-08 07:34] LABS: Anion Gap 13 (12-20); Blood Urea Nitrogen 15 mg/dL (9-16); Calcium 7.6 mg/dL (8.4-10.2); Carbon Dioxide 19 mmol/L (22-29); Chloride 108 mmol/L (96-108); Creatinine Clr Calc Pharmacy 48.5; Estimated Glomerular Filt Rate > 60; Glucose Random 83 mg/dL (60-115); Magnesium 1.8 mg/dL (1.6-2.6); Potassium 2.9 mmol/L (3.3-5.1); Sodium 137 mmol/L (135-145)
[2024-12-08] MEDS: ondansetron HCL 4 MG/2 ML VIAL IVPUSH (07:57)
[2024-12-08] MEDS: guaiFENesin 200 MG/10 ML 10 ML LIQUID PO (07:59)
[2024-12-08] MEDS: metroNIDAZOLE/NS 500 MG/100 ML PIGGYBACK 100 MG IV ×3 (07:59→23:28)
[2024-12-08] MEDS: Cholecalciferol (Vitamin D3) 25 MCG TABLET PO (07:59)
[2024-12-08] MEDS: Primidone 50 MG TABLET 100 MG PO ×2 (08:00→20:08)
[2024-12-08] MEDS: Propranolol HCL LA 60 MG CAP.SA.24H PO (08:00)
[2024-12-08] MEDS: lisinopriL 2.5 MG TABLET PO (08:00)
[2024-12-08] MEDS: oxyCODONE HCl Immed Release 5 MG TABLET PO ×2 (08:00→14:16)
[2024-12-08] MEDS: 0.9 % Sodium Chloride Flush 3 ML SYRINGE IVFLUSH ×3 (08:00→20:13)
[2024-12-08] MEDS: Enoxaparin Sodium 40 MG/0.4 ML SYRINGE SUBCUT (08:00)
--- NOTE | 2024-12-08 08:33 | HO.PM.IMPN ---
Subjective Subjective Date of Service: 12/08/24 Interval History: diarrhea improving Physical Exam Vital Signs: Vital Signs: Last Vital Signs Temp 99.1 F 12/08/24 07:23 Pulse 75 12/08/24 07:23 Resp 16 12/08/24 07:23 BP 143/66 H 12/08/24 07:23 Pulse Ox 94 12/08/24 07:23 O2 Del Method Room Air 12/08/24 07:23 BMI result Body Mass Index 20.9 General: AO X 3, no acute distress, frail Resp: CTA bilateral, no accessory muscles used CVS: S1,S2,RRR GI: soft, non tender, non distended Neuro: motor grossly intact, alert Psych: appropriate affect, appropriate insight Objective Data Active Medications Acetaminophen (Acetaminophen 325 Mg Tablet) 975 mg PO Q6H PRN PRN Reason: Pain, Mild 1-3,fever,headache Last Admin: 12/07/24 16:48 Dose: 975 mg Documented By: DARLING Benzonatate (Benzonatate 100 Mg Capsule) 100 mg PO TID PRN PRN Reason: Cough Last Admin: 12/06/24 05:24 Dose: 100 mg Documented By: JHONY Buspirone HCl (Buspirone Hcl 5 Mg Tablet) 7.5 mg PO BEDTIME [facility] Last Admin: 12/07/24 19:23 Dose: 7.5 mg Documented By: CATHY Calcium Carbonate (Calcium Carbonate 750 Mg Tab.Chew) 750 mg PO Q4H PRN PRN Reason: Heartburn Ceftriaxone Sodium (Ceftriaxone Sodium 1 Gm Vial) 1 gm IVPUSH Q24H [facility] Last Admin: 12/07/24 16:54 Dose: 1 gm Documented By: DARLING Enoxaparin Sodium (Enoxaparin Sodium 40 Mg/0.4 Ml Syringe) 40 mg SUBCUT Q24H [facility] Last Admin: 12/08/24 08:00 Dose: 40 mg Documented By: BIANCA Guaifenesin (Guaifenesin 200 Mg/10 Ml 10 Ml Liquid) 10 ml PO Q4H PRN PRN Reason: Cough Last Admin: 12/08/24 07:59 Dose: 10 ml Documented By: BIANCA Metronidazole (Flagyl) 500 mg in 100 mls @ 100 mls/hr IV Q8H [facility] Last Admin: 12/08/24 07:59 Dose: 100 mls/hr Documented By: BIANCA Lisinopril (Lisinopril 2.5 Mg Tablet) 2.5 mg PO DAILY [facility]; Protocol Last Admin: 12/08/24 08:00 Dose: 2.5 mg Documented By: BIANCA Magnesium Hydroxide (Milk Of Magnesia 30 Ml Oral.Susp) 30 ml PO DAILY PRN PRN Reason: Constipation Melatonin (Melatonin 3 Mg Tablet) 6 mg PO BEDTIME PRN PRN Reason: Insomnia Omeprazole (Omeprazole 20 Mg Capsule.Dr) 20 mg PO DAILY@0630 [facility] Last Admin: 12/08/24 05:35 Dose: 20 mg Documented By: JENN Ondansetron HCl (Ondansetron Hcl 4 Mg/2 Ml Vial) 4 mg IVPUSH Q8H PRN PRN Reason: Nausea and Vomiting Last Admin: 12/08/24 07:57 Dose: 4 mg Documented By: BIANCA Oxycodone HCl (Oxycodone Hcl Immed Release 5 Mg Tablet) 5 mg PO Q6H PRN PRN Reason: Pain, Moderate(Pain Scale 4-6) Last Admin: 12/08/24 08:00 Dose: 5 mg Documented By: BIANCA Primidone (Primidone 50 Mg Tablet) 100 mg PO BID [facility] Last Admin: 12/08/24 08:00 Dose: 100 mg Documented By: BIANCA Propranolol HCl (Propranolol Hcl La 60 Mg Cap.Sa.24h) 60 mg PO DAILY [facility]; Protocol Last Admin: 12/08/24 08:00 Dose: 60 mg Documented By: BIANCA Sodium Chloride (0.9 % Sodium Chloride Flush 3 Ml Syringe) 3 ml IVFLUSH QSHIFT [facility] Last Admin: 12/08/24 08:00 Dose: 3 ml Documented By: BIANCA Vitamin D (Cholecalciferol (Vitamin D3) 25 Mcg Tablet) 25 mcg PO DAILY [facility] Last Admin: 12/08/24 07:59 Dose: 25 mcg Documented By: BIANCA Labs 12/08/24 06:02 12/08/24 06:03 Labs: Laboratory Results - last 24 hr 12/07/24 12/08/24 12/08/24 09:56 06:02 06:03 MCV 100.0 H MCH 32.6 MCHC 32.6 RDW 13.6 Plt Count 213 MPV 11.3 Absolute Nucleated RBC 0.000 Nucleated RBC % (auto) 0.0 Anion Gap 13 Estim Creat Clear Calc 48.5 Estimated GFR > 60 Random Glucose 83 Calcium 7.6 L Magnesium 1.8 Stl C. cayetanensis PCR Not Detected Stool Rotavirus A PCR Not Detected Stl Adenov F 40/41 PCR Not Detected Stool Astrovirus (PCR) Not Detected Stool Campylobacter PCR Not Detected Stool Cryptosporidium PCR Not Detected Stl Sh Tox Pr E STEC PCR Not Detected Stool E coli O157 PCR Not applicable Stl Enterotoxigenic E PCR Not Detected Stool EPEC (PCR) Not Detected Stool EAEC (PCR) Not Detected Stl E. histolytica PCR Not Detected Stool Giardia Lamblia PCR Not Detected Stl P. shigelloides PCR Not Detected Stool Salmonella PCR Not Detected Stool Sapovirus (PCR) Not Detected Stl Shigella/EIEC PCR Not Detected St Y.enterocolitica PCR Not Detected Stool Vibrio (PCR) Not Detected Stl Vibrio cholerae PCR Not Detected Stl Norovirus GI/GII PCR Not Detected Microbiology Microbiology Results: Microbiology 12/05/24 18:09 Blood Culture - Final Blood - Venous Proteus mirabilis 12/05/24 18:23 Urine Culture - Final Urine Catheterized - Straight Catheter Proteus mirabilis 12/05/24 18:09 Blood Culture - Preliminary Blood - Venous Gram positive cocci Assessment and Plan (1) CAD (coronary artery disease): Status: Acute Plan 89F PMH coronary disease, hypertension, essential tremor with recent unintentional weight loss presented with abdominal pain, fevers Sepsis due to colitis and urinary tract infection, bactremia Continue ceftriaxone and Flagyl Follow up cultures, GI eval, gu eval for obstructing lesion in left kidney Cough Likely due to aspiration pneumonitis Symptomatic management Unintentional weight loss Reports that suspicious renal lesion and hepatic cysts are chronic Oncology aprpeciated multifactorial - grief, recurrent infections, ?malignancy assoicated with renal lesion macrocytic anemia outpatient follow up for possible MDS Hypertension lisinopril Essential tremor Primidone DVT prophylaxis with Lovenox DNR/DNI reason for continued hospitalization: cultures Quality Stroke Does the patient have a stroke diagnosis?: No VTE Prior VTE?: No VTE Risk Level:: Medical - moderate - high VTE Device Contraindication: Treatment Not Indicated VTE Drug Contraindication: N/A - Med Ordered
[2024-12-08] MEDS: Potassium Chloride ER 20 MEQ TAB.ER.PRT 40 MEQ PO (08:43)
[2024-12-08 11:36] VITALS: BP 134/59; PULSE 77; RESP 16; TEMP 36.9; O2SAT 99
--- NOTE | 2024-12-08 14:18 | PM.HEMONCPN ---
Medical Summary - Medical Summary Date of Service: 12/08/24 Chief complaint: Abdominal pain Primary Care Provider: Magy Romero MD Elevated Guard Utilized?: No - Albanian Speaking Interval History Interval history: Jocelyn Mejia is a 89 year old female with past medical history significant for hypertension, chronic low back pain, spinal stenosis who presented with complaints of fever up to 103 degree F associated with nausea vomiting and diarrhea. Patient says that she has been feeling poorly on and off for several months. It has been told of left kidney mass for many years, she saw advertisement compositor previously for this. She has history of chronic low back pain and receives intermittent steroid injections. Says she has had over 100 lb weight loss in the last 2-3 years ever since her . She was diagnosed with COVID-19 infection a few months ago when she was at rehab in [place]. Her fevers have resolved but she has persistent abdominal pain which is in the lower mid and right-sided abdomen. Diarrhea has also resolved. Review of Systems - Neurologic Denies confusion PMFSH Medical History: Medical History (Last Reviewed 12/06/24 @ 08:53 by Carline Fam RN) Acquired renal cyst of left kidney Altered bowel habits CAD (coronary artery disease) Chronic low back pain with sciatica Chronic right hip pain COVID-19 Dextroscoliosis of thoracolumbar spine Dyspnea on exertion Essential hypertension Facial skin lesion Fecal incontinence Generalized anxiety disorder GERD with esophagitis History of constipation Insomnia Onset Date: Unknown Left bundle branch block Lumbar disc herniation with radiculopathy Mixed dyslipidemia Osteoarthritis Osteoarthritis, hip, bilateral Osteoporosis Severe scoliosis Spinal stenosis of lumbar region at multiple levels Vitamin B12 deficiency Family History: Family History (Last Reviewed 11/16/24 @ 13:11 by KIT Herrera) Father No problems noted. Mother Arthritis Son No problems noted. Daughter No problems noted. Brother No problems noted. Surgical History: Surgical History (Last Reviewed 12/06/24 @ 08:53 by Carline Fam RN) History of esophagogastroduodenoscopy (EGD) History of intraocular lens implant Hx of colonoscopy Social History: Social History (Last Reviewed 11/16/24 @ 13:11 by KIT Herrera) Living Situation History: Household Members: None Housing: Apartment Do you presently have visiting nurse or other home services: No Tobacco History: Patient Tobacco Use Status: Never used Tobacco Tobacco use type: Cigarette e-Cigarette/Vaping Use: Never Used Second Hand Smoke Exposure: Yes Advance Directives: Advance Directives Date on File: 03/11/24 Occupation Assessmet: service: No Current occupational status: retired Current occupation: Retired Home Medications and Allergies Current Medications: Current Medications Acetaminophen (Acetaminophen 325 Mg Tablet) 975 mg PO Q6H PRN PRN Reason: Pain, Mild 1-3,fever,headache Last Admin: 12/07/24 16:48 Dose: 975 mg Benzonatate (Benzonatate 100 Mg Capsule) 100 mg PO TID PRN PRN Reason: Cough Last Admin: 12/06/24 05:24 Dose: 100 mg Buspirone HCl (Buspirone Hcl 5 Mg Tablet) 7.5 mg PO BEDTIME [facility] Last Admin: 12/07/24 19:23 Dose: 7.5 mg Calcium Carbonate (Calcium Carbonate 750 Mg Tab.Chew) 750 mg PO Q4H PRN PRN Reason: Heartburn Ceftriaxone Sodium (Ceftriaxone Sodium 1 Gm Vial) 1 gm IVPUSH Q24H [facility] Last Admin: 12/07/24 16:54 Dose: 1 gm Enoxaparin Sodium (Enoxaparin Sodium 40 Mg/0.4 Ml Syringe) 40 mg SUBCUT Q24H [facility] Last Admin: 12/08/24 08:00 Dose: 40 mg Guaifenesin (Guaifenesin 200 Mg/10 Ml 10 Ml Liquid) 10 ml PO Q4H PRN PRN Reason: Cough Last Admin: 12/08/24 07:59 Dose: 10 ml Metronidazole (Flagyl) 500 mg in 100 mls @ 100 mls/hr IV Q8H [facility] Last Infusion: 12/08/24 09:00 Dose: Infused Lisinopril (Lisinopril 2.5 Mg Tablet) 2.5 mg PO DAILY [facility]; Protocol Last Admin: 12/08/24 08:00 Dose: 2.5 mg Magnesium Hydroxide (Milk Of Magnesia 30 Ml Oral.Susp) 30 ml PO DAILY PRN PRN Reason: Constipation Melatonin (Melatonin 3 Mg Tablet) 6 mg PO BEDTIME PRN PRN Reason: Insomnia Omeprazole (Omeprazole 20 Mg Capsule.Dr) 20 mg PO DAILY@0630 [facility] Last Admin: 12/08/24 05:35 Dose: 20 mg Ondansetron HCl (Ondansetron Hcl 4 Mg/2 Ml Vial) 4 mg IVPUSH Q8H PRN PRN Reason: Nausea and Vomiting Last Admin: 12/08/24 07:57 Dose: 4 mg Oxycodone HCl (Oxycodone Hcl Immed Release 5 Mg Tablet) 5 mg PO Q6H PRN PRN Reason: Pain, Moderate(Pain Scale 4-6) Last Admin: 12/08/24 14:16 Dose: 5 mg Primidone (Primidone 50 Mg Tablet) 100 mg PO BID [facility] Last Admin: 12/08/24 08:00 Dose: 100 mg Propranolol HCl (Propranolol Hcl La 60 Mg Cap.Sa.24h) 60 mg PO DAILY [facility]; Protocol Last Admin: 12/08/24 08:00 Dose: 60 mg Sodium Chloride (0.9 % Sodium Chloride Flush 3 Ml Syringe) 3 ml IVFLUSH QSHIFT [facility] Last Admin: 12/08/24 08:00 Dose: 3 ml Vitamin D (Cholecalciferol (Vitamin D3) 25 Mcg Tablet) 25 mcg PO DAILY [facility] Last Admin: 12/08/24 07:59 Dose: 25 mcg Home Medications ?Medication ?Instructions ?Recorded ?Confirmed ?Type denosumab 60 mg/mL subcutaneous 60 mg subcut [id number] 05/25/20 12/06/24 History syringe (Prolia) acetaminophen 500 mg tablet 1,000 mg PO BID pain 05/17/23 12/06/24 History (Tylenol Extra Strength) buspirone 7.5 mg tablet 7.5 mg PO BEDTIME 10/02/24 12/06/24 History cholecalciferol (vitamin D3) 25 25 mcg PO DAILY 12/06/24 12/06/24 History mcg (1,000 unit) tablet omeprazole 20 mg capsule,delayed 20 mg PO DAILY@0630 12/06/24 12/06/24 History release primidone 50 mg tablet 150 mg PO BEDTIME 12/06/24 12/06/24 History propranolol 60 mg capsule,24 60 mg PO DAILY 12/06/24 12/06/24 History hr,extended release Allergies Allergy/AdvReac Type Severity Reaction Status Date / Time No Known Allergies Allergy Verified 12/05/24 17:49 Exam Vital signs: Vital Signs Temp 98.4 F 12/08/24 11:36 Pulse 77 12/08/24 11:36 Resp 16 12/08/24 11:36 BP 134/59 L 12/08/24 11:36 Pulse Ox 99 12/08/24 11:36 O2 Del Method Room Air 12/08/24 11:36 Intake & Output 12/07/24 12/08/24 12/08/24 18:59 06:59 18:59 Intake Total 540 / 1000 460 / 1000 560 / 560 Balance 540 / 1000 460 / 1000 560 / 560 Intake: Intake, Oral Amount 340 / 700 360 / 700 460 / 460 Intake, IV Amount 200 / 300 100 / 300 100 / 100 metroNIDAZOLE/NS 500 mg In 100 200 / 300 100 / 300 100 / 100 ml @ 100 mls/hr IV Q8H [facility] Rx#: [id number] Other: Breakfast % Eaten 25% 100% Lunch % Eaten 75% 50% Eating (Feeding) Ability Set Up only Set Up only Number of Unmeasured Voids 1 3 Urine Bathroom Bathroom Bathroom Urine Color Yellow Last Bowel Movement 12/07/24 12/07/24 12/07/24 Stool Bathroom Stool Amount Large Stool Color Green Stool Consistency Loose Weight 56.9 kg BMI result Body Mass Index 20.9 - Constitutional Present: mild distress, average body habitus - Routine HEENT Exam Head: Present: normal inspection - Routine Respiratory Exam Present: CTAB - Routine Cardiovascular Exam Cardiovascular: Present: RRR, S1, S2 - Routine Abdominal Exam Present: soft. Absent: distended - Routine Extremities Exam Absent: calf tenderness - Routine Skin Exam Present: intact, pallor - Routine Neurological Exam Present: alert, oriented X3 Data - Labs CBC & Chem 7: 12/08/24 06:02 12/08/24 06:03 Labs: Laboratory Last Values WBC 7.1 X10*3/uL (4.8-10.8) 12/08/24 06:02 RBC 2.70 X10*6/uL (4.20-5.50) L 12/08/24 06:02 Hgb 8.8 g/dl (12.0-16.0) L 12/08/24 06:02 Hct 27.0 % (37.0-47.0) L 12/08/24 06:02 MCV 100.0 fL (80.0-98.0) H 12/08/24 06:02 MCH 32.6 pg (27.0-33.0) 12/08/24 06:02 MCHC 32.6 g/dl (31.0-35.0) 12/08/24 06:02 RDW 13.6 % (11.0-16.0) 12/08/24 06:02 Plt Count 213 X10*3/uL (160-400) 12/08/24 06:02 MPV 11.3 fL (9.4-12.3) 12/08/24 06:02 Immature Gran % (Auto) 0.5 % (0.0-0.4) H 12/05/24 18:09 Neut % (Auto) 81.8 % (45-73) H 12/05/24 18:09 Lymph % (Auto) 9.6 % (20-40) L 12/05/24 18:09 [place] % (Auto) 7.8 % (2-11) 12/05/24 18:09 Eos % (Auto) 0.1 % (0-4) 12/05/24 18:09 Baso % (Auto) 0.2 % (0-2) 12/05/24 18:09 Lymph # (Auto) 1.2 X10*3/uL (1.2-4.9) 12/05/24 18:09 [place] # (Auto) 1.0 X10*3/uL (0.1-1.2) 12/05/24 18:09 Eos # (Auto) 0.0 X10*3/uL (0.0-0.4) 12/05/24 18:09 Baso # (Auto) 0.0 X10*3/uL (0.0-0.2) 12/05/24 18:09 Abs Immat Gran (auto) 0.07 X10*3/uL (0.00-0.03) H 12/05/24 18:09 Absolute Neuts (auto) 10.6 x10*3/uL (2.0-8.3) H 12/05/24 18:09 Absolute Nucleated RBC 0.000 X10*3/uL (0.0-0.012) 12/08/24 06:02 Nucleated RBC % (auto) 0.0 /100WBC (0.0-0.2) 12/08/24 06:02 VBG pH 7.47 (7.32-7.43) H 12/05/24 18:15 VBG pCO2 36 mmHg 12/05/24 18:15 VBG pO2 58 mmHg 12/05/24 18:15 VBG HCO3 26 mmol/L (22-26) 12/05/24 18:15 VBG O2 Saturation 91.0 % 12/05/24 18:15 VBG Base Excess 2.8 mmol/L 12/05/24 18:15 Sodium 137 mmol/L (135-145) 12/08/24 06:03 Potassium 2.9 mmol/L (3.3-5.1) L* 12/08/24 06:03 Chloride 108 mmol/L (96-108) 12/08/24 06:03 Carbon Dioxide 19 mmol/L (22-29) L 12/08/24 06:03 Anion Gap 13 (12-20) 12/08/24 06:03 BUN 15 mg/dL (9-16) 12/08/24 06:03 Creatinine 0.72 mg/dL (0.5-1.4) 12/08/24 06:03 Estim Creat Clear Calc 48.5 12/08/24 06:03 Estimated GFR > 60 12/08/24 06:03 Random Glucose 83 mg/dL (60-115) 12/08/24 06:03 Lactic Acid 1.1 mmol/L (0.5-2.0) 12/05/24 18:09 Calcium 7.6 mg/dL (8.4-10.2) L 12/08/24 06:03 Magnesium 1.8 mg/dL (1.6-2.6) 12/08/24 06:03 Total Bilirubin 0.6 mg/dL (0.0-1.0) 12/05/24 18:09 AST 32 U/L (5-31) H 12/05/24 18:09 ALT 8 U/L (0-31) 12/05/24 18:09 Alkaline Phosphatase 62 U/L (39-117) 12/05/24 18:09 Troponin I High Sens 13.8 ng/L (<3.5-17.0) D 12/05/24 18:10 B-Natriuretic Peptide 243 pg/mL (<100) H 12/05/24 18:10 Total Protein 6.2 g/dL (6.5-8.0) L 12/05/24 18:09 Albumin 3.3 g/dL (3.5-5.0) L 12/05/24 18:09 Lipase 22 U/L (8-78) 12/05/24 18:09 Urine Color Dark Yellow 12/05/24 18: Urine Appearance Cloudy 12/05/24 18: Urine pH >= 9.0 (5.0-9.0) 12/05/24 18:23 Ur Specific [place] >= 1.030 (1.005-1.025) H 12/05/24 18:23 Urine Protein 300 (3+) mg/dL (Neg-Trace) H 12/05/24 18:23 Urine Glucose (UA) Negative mg/dL (Negative) 12/05/24 18: Urine Ketones 15 mg/dL (Negative) 12/05/24 18:23 Urine Blood Negative (Negative) 12/05/24 18: Urine Nitrite Positive (Negative) H 12/05/24 18:23 Ur Leukocyte Esterase Moderate (2+) (Negative) H 12/05/24 18:23 Urine RBC 6-10 /HPF (0-2) H 12/05/24 18:23 Urine WBC >50 /HPF (0-5) H 12/05/24 18:23 Ur Squamous Epith Cells 3-5 /HPF (0-2) 12/05/24 18:23 Other Crystals Present 12/05/24 18:23 Urine Bacteria 4+ (None Seen) 12/05/24 18: Hyaline Casts 6-10 /LPF (0-2) 12/05/24 18:23 Stl C. cayetanensis PCR Not Detected (Not Detect.) 12/07/24 09:56 Stool Rotavirus A PCR Not Detected (Not Detect.) 12/07/24 09:56 Stl Adenov F 40/41 PCR Not Detected (Not Detect.) 12/07/24 09:56 Stool Astrovirus (PCR) Not Detected (Not Detect.) 12/07/24 09:56 Stool Campylobacter PCR Not Detected (Not Detect.) 12/07/24 09:56 Stool Cryptosporidium PCR Not Detected (Not Detect.) 12/07/24 09:56 Stl Sh Tox Pr E STEC PCR Not Detected (Not Detect.) 12/07/24 09:56 Stool E coli O157 PCR Not applicable (Not Detect.) 12/07/24 09:56 Stl Enterotoxigenic E PCR Not Detected (Not Detect.) 12/07/24 09:56 Stool EPEC (PCR) Not Detected (Not Detect.) 12/07/24 09:56 Stool EAEC (PCR) Not Detected (Not Detect.) 12/07/24 09:56 Stl E. histolytica PCR Not Detected (Not Detect.) 12/07/24 09:56 Stool Giardia Lamblia PCR Not Detected (Not Detect.) 12/07/24 09:56 Stl P. shigelloides PCR Not Detected (Not Detect.) 12/07/24 09:56 Stool Salmonella PCR Not Detected (Not Detect.) 12/07/24 09:56 Stool Sapovirus (PCR) Not Detected (Not Detect.) 12/07/24 09:56 Stl Shigella/EIEC PCR Not Detected (Not Detect.) 12/07/24 09:56 St Y.enterocolitica PCR Not Detected (Not Detect.) 12/07/24 09:56 Stool Vibrio (PCR) Not Detected (Not Detect.) 12/07/24 09:56 Stl Vibrio cholerae PCR Not Detected (Not Detect.) 12/07/24 09:56 Stl Norovirus GI/GII PCR Not Detected (Not Detect.) 12/07/24 09:56 C. difficile Tox B Gene NEGATIVE (Negative) 12/06/24 03:57 Influenza Type A (PCR) NEGATIVE (Negative) 12/05/24 18:09 Influenza Type B (PCR) NEGATIVE (Negative) 12/05/24 18:09 RSV RNA Qual (PCR) NEGATIVE (Negative) 12/05/24 18:09 SARS-CoV-2 RNA (RT-PCR) NEGATIVE (Negative) 12/05/24 18:09 Assessment and Plan Patient Active problem list reviewed?: Yes (1) Complex renal cyst Status: Acute Assessment and plan: 1. This is a pleasant 89-year-old woman presenting with fever, abdominal discomfort who is currently admitted for urosepsis with Gram-negative rods. She is on antibiotics. CT abdomen/pelvis with IV contrast shows colitis of left hemicolon, complex predominantly cystic mass in upper pole of left kidney, underlying mass can not be excluded. CT angiogram of chest shows no PE, likely mild congestive heart failure. I reviewed this with radiologist. This could be the source of her UTI and sepsis. There appears to be hydronephrosis of upper pole of left kidney, decompression could be performed after fever defervesces. Possible malignancy/tumor associated with the complex cyst. Recommend urology consultation. 2. Macrocytic anemia. This has been gradually worsening since 2019. No hematinic deficiencies including normal vitamin B12 and folate levels. This could be related to underlying infection/malignancy. Primary bone marrow disorder such as myelodysplastic syndrome is also in the differential diagnosis. I thank you for the consultation, will follow with you. - Time Spent With Patient Time Spent with Patient (in minutes): 15 Additional Coding: - Additional E/M codes Complex E/M visit Add On: CPT G2211
[2024-12-08 15:52] LABS: Immature Retic Fraction 7.2 % (3.0-15.9); Retic HGB Equivalent 27.8 pg (30.0-35.0); Reticulocyte Percent 1.6 % (0.5-1.8); Reticulocytes Absolute 0.043 X10*6/uL (0.026-0.095)
[2024-12-08 15:53] VITALS: BP 140/65; PULSE 75; RESP 18; TEMP 36.8; O2SAT 97
[2024-12-08 16:04] LABS: Lactate Dehydrogenase 296 U/L (122-220)
--- NOTE | 2024-12-08 16:14 | P.CNUR_ITS ---
History of Present Illness Consult details Consult date: 12/08/24 Narrative: CC: Cystic renal mass left 89-year-old female Present with dysuria and suppressed appetite Diarrhea with urinary tract infection Admission with colitis and UTI Recurrent Proteus UTI dating back to the beginning of this year resistant to Macrobid Imaging shows - Complex predominantly cystic mass upper pole left kidney as described on previous studies. Underlying mass can not be excluded. The cystic component has progressed on serial studies and therefore obstructive calices can be considered. - renal parenchyma with appropriate vascular flow Review of CT from 2021 shows hydronephrosis with underlying renal mass Patient states has been aware of renal mass for many years Had been seen by Urology back in 2020. Mass had been under surveillance with minimal progression. Current creatinine 0.72 Recurrent Proteus UTI may be related to under treatment of urine that is retained by left kidney. Overall creatinine shows remarkable stability with no evidence of current impairment. Imaging shows significant increase in degree of hydronephrosis however mass of left kidney is approximately same size Drainage of a full cyst may be performed by Interventional if clinically correlated to flank discomfort Otherwise would continue to treat with 14 day antibiotic course Review of Systems 2 Constitutional: Constitutional: Reports as per HPI and Reports no additional constitutional complaints Cardiovascular: Cardiovascular: Reports as per HPI and Reports no additional cardiovascular complaints Respiratory: Respiratory: Reports as per HPI and Reports no additional respiratory complaints Gastrointestinal: Gastrointestinal: Reports as per HPI and Reports no additional gastrointestinal complaints Genitourinary: Genitourinary: Reports as per HPI Musculoskeletal: Musculoskeletal: Reports no additional musculoskeletal complaints and Reports as per HPI Neurologic: Reports system reviewed and no additional complaints, except as documented and Reports as per HPI [facility] Past Medical History Medical History History of constipation Altered bowel habits COVID-19 Vitamin B12 deficiency Osteoarthritis, hip, bilateral Dextroscoliosis of thoracolumbar spine Facial skin lesion Generalized anxiety disorder Dyspnea on exertion Left bundle branch block Chronic right hip pain Acquired renal cyst of left kidney 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 Mother Arthritis Son No problems noted. Daughter No problems noted. Brother No problems noted. Surgical History Surgical History (Updated 12/06/24 @ 09:19 by Anita Rodriguez MD) Hx of colonoscopy History of esophagogastroduodenoscopy (EGD) History of intraocular lens implant Social History Social History Household Members: None Housing: Apartment Do you presently have visiting nurse or other home services: No Alcohol intake: former Patient Tobacco Use Status: Never used Tobacco Tobacco use type: Cigarette e-Cigarette/Vaping Use: Never Used Second Hand Smoke Exposure: Yes Advance Directives Date on File: 03/11/24 service: No Current occupational status: retired Current occupation: Retired Cognitive needs: No Hearing needs: No Vision needs: Yes Meds Allergies Allergy/AdvReac Type Severity Reaction Status Date / Time No Known Allergies Allergy Verified 12/05/24 17:49 Active Medications: Current Medications Acetaminophen (Acetaminophen 325 Mg Tablet) 975 mg PO Q6H PRN PRN Reason: Pain, Mild 1-3,fever,headache Last Admin: 12/07/24 16:48 Dose: 975 mg Benzonatate (Benzonatate 100 Mg Capsule) 100 mg PO TID PRN PRN Reason: Cough Last Admin: 12/06/24 05:24 Dose: 100 mg Buspirone HCl (Buspirone Hcl 5 Mg Tablet) 7.5 mg PO BEDTIME DAWNA Last Admin: 12/07/24 19:23 Dose: 7.5 mg Calcium Carbonate (Calcium Carbonate 750 Mg Tab.Chew) 750 mg PO Q4H PRN PRN Reason: Heartburn Ceftriaxone Sodium (Ceftriaxone Sodium 1 Gm Vial) 1 gm IVPUSH Q24H DAWNA Last Admin: 12/07/24 16:54 Dose: 1 gm Enoxaparin Sodium (Enoxaparin Sodium 40 Mg/0.4 Ml Syringe) 40 mg SUBCUT Q24H DAWNA Last Admin: 12/08/24 08:00 Dose: 40 mg Guaifenesin (Guaifenesin 200 Mg/10 Ml 10 Ml Liquid) 10 ml PO Q4H PRN PRN Reason: Cough Last Admin: 12/08/24 07:59 Dose: 10 ml Metronidazole (Flagyl) 500 mg in 100 mls @ 100 mls/hr IV Q8H [facility] Last Admin: 12/08/24 15:31 Dose: 100 mls/hr Lisinopril (Lisinopril 2.5 Mg Tablet) 2.5 mg PO DAILY [facility]; Protocol Last Admin: 12/08/24 08:00 Dose: 2.5 mg Magnesium Hydroxide (Milk Of Magnesia 30 Ml Oral.Susp) 30 ml PO DAILY PRN PRN Reason: Constipation Melatonin (Melatonin 3 Mg Tablet) 6 mg PO BEDTIME PRN PRN Reason: Insomnia Omeprazole (Omeprazole 20 Mg Capsule.Dr) 20 mg PO DAILY@0630 [facility] Last Admin: 12/08/24 05:35 Dose: 20 mg Ondansetron HCl (Ondansetron Hcl 4 Mg/2 Ml Vial) 4 mg IVPUSH Q8H PRN PRN Reason: Nausea and Vomiting Last Admin: 12/08/24 07:57 Dose: 4 mg Oxycodone HCl (Oxycodone Hcl Immed Release 5 Mg Tablet) 5 mg PO Q6H PRN PRN Reason: Pain, Moderate(Pain Scale 4-6) Last Admin: 12/08/24 14:16 Dose: 5 mg Primidone (Primidone 50 Mg Tablet) 100 mg PO BID [facility] Last Admin: 12/08/24 08:00 Dose: 100 mg Propranolol HCl (Propranolol Hcl La 60 Mg Cap.Sa.24h) 60 mg PO DAILY [facility]; Protocol Last Admin: 12/08/24 08:00 Dose: 60 mg Sodium Chloride (0.9 % Sodium Chloride Flush 3 Ml Syringe) 3 ml IVFLUSH QSHIFT [facility] Last Admin: 12/08/24 14:20 Dose: 3 ml Vitamin D (Cholecalciferol (Vitamin D3) 25 Mcg Tablet) 25 mcg PO DAILY [facility] Last Admin: 12/08/24 07:59 Dose: 25 mcg Home Medications ?Medication ?Instructions ?Recorded ?Confirmed ?Last Taken ?Type denosumab 60 mg/mL subcutaneous 60 mg subcut [id number] 05/25/20 12/06/24 4 Months Ago History syringe (Prolia) ~06/01/24 acetaminophen 500 mg tablet 1,000 mg PO BID pain 05/17/23 12/06/24 Unknown History (Tylenol Extra Strength) buspirone 7.5 mg tablet 7.5 mg PO BEDTIME 10/02/24 12/06/24 10/04/24 History cholecalciferol (vitamin D3) 25 25 mcg PO DAILY 12/06/24 12/06/24 Unknown History mcg (1,000 unit) tablet omeprazole 20 mg capsule,delayed 20 mg PO DAILY@0630 12/06/24 12/06/24 Unknown History release primidone 50 mg tablet 150 mg PO BEDTIME 12/06/24 12/06/24 Unknown History propranolol 60 mg capsule,24 60 mg PO DAILY 12/06/24 12/06/24 Unknown History hr,extended release Physical Exam 2 Vital Signs: Vital Signs: Last Vital Signs Temp 98.2 F 12/08/24 15:53 Pulse 75 12/08/24 15:53 Resp 18 12/08/24 15:53 BP 140/65 H 12/08/24 15:53 Pulse Ox 97 12/08/24 15:53 O2 Del Method Room Air 12/08/24 15:53 BMI result Body Mass Index 20.9 Const: General: cooperative, healthy appearing, comfortable and no acute distress Orientation/consciousness: patient oriented x3 HEENT: Face and sinus: Yes normal facial exam Mouth: moist mucous membranes Neck: Neck: Yes normal visual inspection, Yes full ROM and Yes trachea midline Chest: Chest palpation & inspection: normal inspection of the chest Resp: Effort & Inspection: normal respiratory effort, able to speak in complete sentences and no respiratory distress GI: Inspection: Yes normal to inspection Back/Spine/Pelvis: Cervical Spine: normal cervical lordosis Thoracic/Lumbar Spine: thoracic and lumbar spine normal to inspection Skin: General skin exam: no rashes or lesions noted Neuro: General: patient oriented x3, tone normal and moves all extremities Extrem: General: Yes normal to inspection and Yes capillary refill normal Results Labs 12/08/24 06:02 12/08/24 06:03 Labs: Abnormal lab results 12/08/24 12/08/24 12/08/24 Range/Units 06:02 06:03 15:40 RBC 2.70 L (4.20-5.50) X10*6/uL Hgb 8.8 L (12.0-16.0) g/dl Hct 27.0 L (37.0-47.0) % MCV 100.0 H (80.0-98.0) fL Retic Hgb Equivalent 27.8 L (30.0-35.0) pg Potassium 2.9 L* (3.3-5.1) mmol/L Carbon Dioxide 19 L (22-29) mmol/L Calcium 7.6 L (8.4-10.2) mg/dL Lactate Dehydrogenase 296 H (122-220) U/L Short CBC 12/08/24 Range/Units 06:02 WBC 7.1 (4.8-10.8) X10*3/uL Hgb 8.8 L (12.0-16.0) g/dl Hct 27.0 L (37.0-47.0) % Plt Count 213 (160-400) X10*3/uL BMP 12/08/24 06:03 Sodium 137 Potassium 2.9 L* Chloride 108 Carbon Dioxide 19 L BUN 15 Creatinine 0.72 Calcium 7.6 L Urine 12/05/24 Range/Units 18:23 Urine Color Dark Yellow Urine Appearance Cloudy Urine pH >= 9.0 (5.0-9.0) Ur Specific [place] >= 1.030 H (1.005-1.025) Urine Protein 300 (3+) H (Neg-Trace) mg/dL Urine Glucose (UA) Negative (Negative) mg/dL All other labs normal. Assessment and Plan (1) Complex renal cyst: Status: Acute Plan Fourteen day antibiotic course May benefit from upper pole aspiration Procedures Date of Service Date of Service: 12/08/24
[2024-12-08 16:19] LABS: Haptoglobin 342 mg/dL (63-273)
[2024-12-08] MEDS: cefTRIAXone sodium 1 GM VIAL IVPUSH (17:12)
[2024-12-08 19:48] VITALS: BP 114/55; PULSE 80; RESP 16; TEMP 37.4; O2SAT 96
[2024-12-08] MEDS: busPIRone HCl 5 MG TABLET 7.5 MG PO (20:08)
[2024-12-09] VITALS (9 sets, daily range): BP systolic 118–169; BP diastolic 55–75; PULSE 60–78; RESP 16–20; TEMP 36–37.1; O2SAT 92–98
[2024-12-09] MEDS: Omeprazole 20 MG CAPSULE.DR PO (05:46)
[2024-12-09 07:07] LABS: Hematocrit 25.2 % (37.0-47.0); Hemoglobin 8.1 g/dl (12.0-16.0); Mean Corpuscular HGB Conc 32.1 g/dl (31.0-35.0); Mean Corpuscular Hemoglobin 32.1 pg (27.0-33.0); Mean Platelet Volume 10.8 fL (9.4-12.3); Platelet Count 223 X10*3/uL (160-400); Red Blood Count 2.52 X10*6/uL (4.20-5.50); Red Cell Distribution Width 13.6 % (11.0-16.0); White Blood Count 6.9 X10*3/uL (4.8-10.8)
[2024-12-09 07:21] LABS: Anion Gap 10 (12-20); Blood Urea Nitrogen 13 mg/dL (9-16); Calcium 7.5 mg/dL (8.4-10.2); Carbon Dioxide 19 mmol/L (22-29); Chloride 110 mmol/L (96-108); Creatinine Clr Calc Pharmacy 52.1; Estimated Glomerular Filt Rate > 60; Glucose Random 89 mg/dL (60-115); Magnesium 1.7 mg/dL (1.6-2.6); Potassium 3.3 mmol/L (3.3-5.1); Sodium 136 mmol/L (135-145)
[2024-12-09] MEDS: metroNIDAZOLE/NS 500 MG/100 ML PIGGYBACK 100 MG IV ×3 (07:49→23:21)
[2024-12-09] MEDS: Primidone 50 MG TABLET 100 MG PO ×2 (07:53→20:03)
[2024-12-09] MEDS: lisinopriL 2.5 MG TABLET PO (07:53)
[2024-12-09] MEDS: Cholecalciferol (Vitamin D3) 25 MCG TABLET PO (07:54)
[2024-12-09] MEDS: Propranolol HCL LA 60 MG CAP.SA.24H PO (07:54)
[2024-12-09] MEDS: 0.9 % Sodium Chloride Flush 3 ML SYRINGE IVFLUSH ×3 (07:54→20:03)
--- NOTE | 2024-12-09 14:07 | HO.PM.IMPN ---
Subjective Subjective Date of Service: 12/09/24 Interval History: seen and evaluated feels better overall Cyst drainage this afternoon no fever or chills diarrhea resolving Review of Systems Review of Systems: Yes all other systems are reviewed and are negative Physical Exam Vital Signs: Vital Signs: Last Vital Signs Temp 98.0 F 12/09/24 11:24 Pulse 77 12/09/24 14:01 Resp 19 12/09/24 14:01 BP 166/62 H 12/09/24 14:01 Pulse Ox 97 12/09/24 14:01 O2 Del Method Room Air 12/09/24 11:24 BMI result Body Mass Index 20.9 Const: Other: Constitutional : interactive, not in distress Cardiovascular : no JVP, no lower extremity edema Respiratory : bilateral chest movement, not in resp distress Gastrointestinal: soft, lax, Non tender Skin : Warm, Dry Neurological : Alert & oriented , No focal deficit Objective Data Active Medications Acetaminophen (Acetaminophen 325 Mg Tablet) 975 mg PO Q6H PRN PRN Reason: Pain, Mild 1-3,fever,headache Last Admin: 12/07/24 16:48 Dose: 975 mg Documented By: DARLING Benzonatate (Benzonatate 100 Mg Capsule) 100 mg PO TID PRN PRN Reason: Cough Last Admin: 12/06/24 05:24 Dose: 100 mg Documented By: JHONY Buspirone HCl (Buspirone Hcl 5 Mg Tablet) 7.5 mg PO BEDTIME [facility] Last Admin: 12/08/24 20:08 Dose: 7.5 mg Documented By: SACHIN Calcium Carbonate (Calcium Carbonate 750 Mg Tab.Chew) 750 mg PO Q4H PRN PRN Reason: Heartburn Ceftriaxone Sodium (Ceftriaxone Sodium 1 Gm Vial) 1 gm IVPUSH Q24H [facility] Last Admin: 12/08/24 17:12 Dose: 1 gm Documented By: BIANCA Enoxaparin Sodium (Enoxaparin Sodium 40 Mg/0.4 Ml Syringe) 40 mg SUBCUT Q24H [facility] Last Admin: 12/08/24 08:00 Dose: 40 mg Documented By: BIANCA Guaifenesin (Guaifenesin 200 Mg/10 Ml 10 Ml Liquid) 10 ml PO Q4H PRN PRN Reason: Cough Last Admin: 12/08/24 07:59 Dose: 10 ml Documented By: BIANCA Metronidazole (Flagyl) 500 mg in 100 mls @ 100 mls/hr IV Q8H [facility] Last Infusion: 12/09/24 08:54 Dose: Infused Documented By: BIANCA Lisinopril (Lisinopril 2.5 Mg Tablet) 2.5 mg PO DAILY [facility]; Protocol Last Admin: 12/09/24 07:53 Dose: 2.5 mg Documented By: BIANCA Magnesium Hydroxide (Milk Of Magnesia 30 Ml Oral.Susp) 30 ml PO DAILY PRN PRN Reason: Constipation Melatonin (Melatonin 3 Mg Tablet) 6 mg PO BEDTIME PRN PRN Reason: Insomnia Omeprazole (Omeprazole 20 Mg Capsule.Dr) 20 mg PO DAILY@0630 [facility] Last Admin: 12/09/24 05:46 Dose: 20 mg Documented By: SACHIN Ondansetron HCl (Ondansetron Hcl 4 Mg/2 Ml Vial) 4 mg IVPUSH Q8H PRN PRN Reason: Nausea and Vomiting Last Admin: 12/08/24 07:57 Dose: 4 mg Documented By: BIANCA Oxycodone HCl (Oxycodone Hcl Immed Release 5 Mg Tablet) 5 mg PO Q6H PRN PRN Reason: Pain, Moderate(Pain Scale 4-6) Last Admin: 12/08/24 14:16 Dose: 5 mg Documented By: BIANCA Primidone (Primidone 50 Mg Tablet) 100 mg PO BID [facility] Last Admin: 12/09/24 07:53 Dose: 100 mg Documented By: BIANCA Propranolol HCl (Propranolol Hcl La 60 Mg Cap.Sa.24h) 60 mg PO DAILY [facility]; Protocol Last Admin: 12/09/24 07:54 Dose: 60 mg Documented By: BIANCA Sodium Chloride (0.9 % Sodium Chloride Flush 3 Ml Syringe) 3 ml IVFLUSH QSHIFT [facility] Last Admin: 12/09/24 07:54 Dose: 3 ml Documented By: BIANCA Vitamin D (Cholecalciferol (Vitamin D3) 25 Mcg Tablet) 25 mcg PO DAILY [facility] Last Admin: 12/09/24 07:54 Dose: 25 mcg Documented By: BIANCA Labs 12/09/24 06:26 12/09/24 06:26 Labs: Laboratory Results - last 24 hr 12/08/24 12/09/24 15:40 06:26 MCV 100.0 H MCH 32.1 MCHC 32.1 RDW 13.6 Plt Count 223 MPV 10.8 Absolute Nucleated RBC 0.000 Nucleated RBC % (auto) 0.0 Absolute Retic 0.043 Percent Retic 1.6 Immature Retic Fraction 7.2 Retic Hgb Equivalent 27.8 L Anion Gap 10 L Estim Creat Clear Calc 52.1 Estimated GFR > 60 Random Glucose 89 Haptoglobin 342 H Calcium 7.5 L Magnesium 1.7 Lactate Dehydrogenase 296 H Microbiology Microbiology Results: Microbiology 12/05/24 18:09 Blood Culture - Final Blood - Venous Coag negative Staphylococcus Assessment and Plan (1) Abdominal pain: Status: Acute (2) Diarrhea: Status: Acute (3) Sepsis: Status: Acute (4) Urinary tract infection: Status: Acute (5) Renal cyst: Status: Acute (6) Bacteremia due to Proteus species: Status: Acute Plan 89F PMH coronary disease, hypertension, essential tremor with recent unintentional weight loss presented with abdominal pain, fevers Sepsis due to colitis and urinary tract infection, Proteus bactremia Continue ceftriaxone and Flagyl Follow up cultures, GI eval, Urology eval for obstructing lesion in left kidney rec 14 days Abx and draining the cyst IR to drain Cyst this afternoon consider suppressive Abx for recurrent uti Cough Likely due to aspiration pneumonitis Symptomatic management Unintentional weight loss Reports that suspicious renal lesion and hepatic cysts are chronic Oncology aprpeciated multifactorial - grief, recurrent infections, ?malignancy assoicated with renal lesion macrocytic anemia outpatient follow up for possible MDS Hypertension lisinopril Essential tremor Primidone DVT prophylaxis with Lovenox DNR/DNI reason for continued hospitalization: pending IR procedure and final cultures Quality Stroke Does the patient have a stroke diagnosis?: No VTE Prior VTE?: No VTE Risk Level:: Medical - moderate - high VTE Device Contraindication: Treatment Not Indicated VTE Drug Contraindication: N/A - Med Ordered
--- NOTE | 2024-12-09 14:53 | MHC.CM.PN ---
Per MD rounds, no DC today. Pt scheduled for OR, 2pm to drain renal cyst. A clinical update has been sent to Mary and LEXIE. DP home with [facility]. Patient will arrange for a ride home.
[2024-12-09] MEDS: Acetaminophen 325 MG TABLET 975 MG PO ×2 (16:08→23:34)
[2024-12-09] MEDS: cefTRIAXone sodium 1 GM VIAL IVPUSH (17:08)
[2024-12-09] MEDS: busPIRone HCl 5 MG TABLET 7.5 MG PO (20:02)
[2024-12-10] VITALS (18 sets, daily range): BP systolic 134–163; BP diastolic 25–72; PULSE 68–80; RESP 14–25; TEMP 36.6–37.2; O2SAT 94–100
[2024-12-10 06:16] LABS: Basophils Percent Auto 0.1 % (0-2); Eosinophils Absolute Auto 0.1 X10*3/uL (0.0-0.4); Eosinophils Percent Auto 0.8 % (0-4); Hematocrit 28.4 % (37.0-47.0); Imm Gran Abs Auto 0.05 X10*3/uL (0.00-0.03); Imm Gran Pct Auto 0.7 % (0.0-0.4); Lymphocytes Absolute Auto 1.5 X10*3/uL (1.2-4.9); Lymphocytes Percent Auto 19.5 % (20-40); MANUAL DIFF FLAG SCAN; Mean Corpuscular HGB Conc 31.7 g/dl (31.0-35.0); Mean Corpuscular Volume 101.1 fL (80.0-98.0); Monocytes Absolute Auto 0.6 X10*3/uL (0.1-1.2); Monocytes Percent Auto 8.4 % (2-11); Neutrophils Absolute Auto 5.3 x10*3/uL (2.0-8.3); Neutrophils Percent Auto 70.5 % (45-73); PLT CLUMP 1; Red Blood Count 2.81 X10*6/uL (4.20-5.50); Red Cell Distribution Width 13.5 % (11.0-16.0); SCAN SMEAR FLAG 1
[2024-12-10 06:48] LABS: Anion Gap 12 (12-20); Blood Urea Nitrogen 11 mg/dL (9-16); Calcium 7.6 mg/dL (8.4-10.2); Carbon Dioxide 19 mmol/L (22-29); Chloride 110 mmol/L (96-108); Creatinine Clr Calc Pharmacy 57.2; Estimated Glomerular Filt Rate > 60; Glucose Random 80 mg/dL (60-115); Potassium 3.5 mmol/L (3.3-5.1); Sodium 137 mmol/L (135-145)
[2024-12-10 07:34] LABS: Platelet Count 174 X10*3/uL (160-400); White Blood Count 7.5 X10*3/uL (4.8-10.8)
[2024-12-10 07:35] LABS: SLIDE REVIEW VERIFIED
[2024-12-10] MEDS: metroNIDAZOLE/NS 500 MG/100 ML PIGGYBACK 100 MG IV ×3 (07:35→23:19)
[2024-12-10] MEDS: Propranolol HCL LA 60 MG CAP.SA.24H PO (07:38)
[2024-12-10] MEDS: Primidone 50 MG TABLET 100 MG PO ×2 (07:38→20:13)
[2024-12-10] MEDS: lisinopriL 2.5 MG TABLET PO (07:38)
[2024-12-10] MEDS: 0.9 % Sodium Chloride Flush 3 ML SYRINGE IVFLUSH ×3 (07:39→20:13)
[2024-12-10] MEDS: Acetaminophen 325 MG TABLET 975 MG PO (10:22)
[2024-12-10] MEDS: fentaNYL citrate/PF 100 MCG/2 ML VIAL 25 MCG IVPUSH ×3 (11:22→11:54)
[2024-12-10] MEDS: Midazolam HCl 2 MG/2 ML VIAL 0.5 MG IVPUSH ×3 (11:22→11:54)
--- NOTE | 2024-12-10 15:04 | HO.PM.IMPN ---
Subjective Subjective Date of Service: 12/10/24 Interval History: seen and evaluated feels better left kidney Cyst biopsy today no fever or chills diarrhea resolved Review of Systems Review of Systems: Yes all other systems are reviewed and are negative Physical Exam Vital Signs: Vital Signs: Last Vital Signs Temp 97.9 F 12/10/24 13:19 Pulse 73 12/10/24 13:19 Resp 18 12/10/24 13:19 BP 138/61 12/10/24 13:19 Pulse Ox 97 12/10/24 13:19 O2 Del Method Room Air 12/10/24 13:19 O2 Flow Rate 2 12/10/24 11:57 BMI result Body Mass Index 20.9 Const: Other: Constitutional : interactive, not in distress Cardiovascular : no JVP, no lower extremity edema Respiratory : bilateral chest movement, not in resp distress Gastrointestinal: soft, lax, Non tender Skin : Warm, Dry Neurological : Alert & oriented , No focal deficit Objective Data Active Medications Acetaminophen (Acetaminophen 325 Mg Tablet) 975 mg PO Q6H PRN PRN Reason: Pain, Mild 1-3,fever,headache Last Admin: 12/10/24 10:22 Dose: 650 mg Documented By: BIANCA Comments: pt requesting only 2 tylenol Benzonatate (Benzonatate 100 Mg Capsule) 100 mg PO TID PRN PRN Reason: Cough Last Admin: 12/06/24 05:24 Dose: 100 mg Documented By: JHONY Buspirone HCl (Buspirone Hcl 5 Mg Tablet) 7.5 mg PO BEDTIME [facility] Last Admin: 12/09/24 20:02 Dose: 7.5 mg Documented By: SACHIN Calcium Carbonate (Calcium Carbonate 750 Mg Tab.Chew) 750 mg PO Q4H PRN PRN Reason: Heartburn Ceftriaxone Sodium (Ceftriaxone Sodium 1 Gm Vial) 1 gm IVPUSH Q24H [facility] Last Admin: 12/09/24 17:08 Dose: 1 gm Documented By: BIANCA Enoxaparin Sodium (Enoxaparin Sodium 40 Mg/0.4 Ml Syringe) 40 mg SUBCUT Q24H [facility] Last Admin: 12/08/24 08:00 Dose: 40 mg Documented By: BIANCA Guaifenesin (Guaifenesin 200 Mg/10 Ml 10 Ml Liquid) 10 ml PO Q4H PRN PRN Reason: Cough Last Admin: 12/08/24 07:59 Dose: 10 ml Documented By: BIANCA Metronidazole (Flagyl) 500 mg in 100 mls @ 100 mls/hr IV Q8H [facility] Last Infusion: 12/10/24 08:35 Dose: Infused Documented By: BIANCA Lisinopril (Lisinopril 2.5 Mg Tablet) 2.5 mg PO DAILY [facility]; Protocol Last Admin: 12/10/24 07:38 Dose: 2.5 mg Documented By: BIANCA Magnesium Hydroxide (Milk Of Magnesia 30 Ml Oral.Susp) 30 ml PO DAILY PRN PRN Reason: Constipation Melatonin (Melatonin 3 Mg Tablet) 6 mg PO BEDTIME PRN PRN Reason: Insomnia Omeprazole (Omeprazole 20 Mg Capsule.Dr) 20 mg PO DAILY@0630 [facility] Last Admin: 12/10/24 05:42 Dose: Not Given Documented By: SACHIN Non-Admin Reason: NPO Ondansetron HCl (Ondansetron Hcl 4 Mg/2 Ml Vial) 4 mg IVPUSH Q8H PRN PRN Reason: Nausea and Vomiting Last Admin: 12/08/24 07:57 Dose: 4 mg Documented By: BIANCA Oxycodone HCl (Oxycodone Hcl Immed Release 5 Mg Tablet) 5 mg PO Q6H PRN PRN Reason: Pain, Moderate(Pain Scale 4-6) Last Admin: 12/08/24 14:16 Dose: 5 mg Documented By: BIANCA Primidone (Primidone 50 Mg Tablet) 100 mg PO BID [facility] Last Admin: 12/10/24 07:38 Dose: 100 mg Documented By: BIANCA Propranolol HCl (Propranolol Hcl La 60 Mg Cap.Sa.24h) 60 mg PO DAILY [facility]; Protocol Last Admin: 12/10/24 07:38 Dose: 60 mg Documented By: BIANCA Sodium Chloride (0.9 % Sodium Chloride Flush 3 Ml Syringe) 3 ml IVFLUSH QSHIFT [facility] Last Admin: 12/10/24 07:39 Dose: 3 ml Documented By: BIANCA Vitamin D (Cholecalciferol (Vitamin D3) 25 Mcg Tablet) 25 mcg PO DAILY [facility] Last Admin: 12/10/24 07:39 Dose: Not Given Documented By: BIANCA Non-Admin Reason: NPO Labs 12/10/24 05:31 12/10/24 05:31 Labs: Laboratory Results - last 24 hr 12/10/24 05:31 MCV 101.1 H MCH 32.0 MCHC 31.7 RDW 13.5 Plt Count 174 MPV 12.0 Immature Gran % (Auto) 0.7 H Neut % (Auto) 70.5 Lymph % (Auto) 19.5 L [place] % (Auto) 8.4 Eos % (Auto) 0.8 Baso % (Auto) 0.1 Lymph # (Auto) 1.5 [place] # (Auto) 0.6 Eos # (Auto) 0.1 Baso # (Auto) 0.0 Abs Immat Gran (auto) 0.05 H Absolute Neuts (auto) 5.3 Absolute Nucleated RBC 0.000 Nucleated RBC % (auto) 0.0 Smear Tech's Comments VERIFIED Anion Gap 12 Estim Creat Clear Calc 57.2 Estimated GFR > 60 Random Glucose 80 Calcium 7.6 L Assessment and Plan (1) Bacteremia due to Proteus species: Status: Acute (2) Renal cyst: Status: Acute (3) Abdominal pain: Status: Acute (4) Diarrhea: Status: Acute Plan 89F PMH coronary disease, hypertension, essential tremor with recent unintentional weight loss presented with abdominal pain, fevers Sepsis due to colitis and urinary tract infection, Proteus bactremia improved tolerating PO Continue ceftriaxone and Flagyl Follow up cultures, growing proteus GI eval, ischemic vs infectious colitis, plan for CT colonography planned by dr Bell as outpatient Urology eval for obstructing lesion in left kidney rec 14 days Abx and draining the cyst IR tried to drain Cyst but noticed mixed consistency with not much appreciable fluid. Discussed with urology who recommended IR biopsy for the cyst with a plan for outpatient follow up and possible radiation treatment if malignant mass. Cough Likely due to aspiration pneumonitis Symptomatic management Unintentional weight loss Reports that suspicious renal lesion and hepatic cysts are chronic Oncology aprpeciated multifactorial - grief, recurrent infections, ?malignancy assoicated with renal lesion macrocytic anemia outpatient follow up for possible MDS Hypertension lisinopril Essential tremor Primidone DVT prophylaxis with Lovenox DNR/DNI reason for continued hospitalization: pending IR procedure and final cultures Quality Stroke Does the patient have a stroke diagnosis?: No VTE Prior VTE?: No VTE Risk Level:: Medical - moderate - high VTE Device Contraindication: Treatment Not Indicated VTE Drug Contraindication: N/A - Med Ordered
[2024-12-10] MEDS: cefTRIAXone sodium 1 GM VIAL IVPUSH (17:03)
[2024-12-10] MEDS: ondansetron HCL 4 MG/2 ML VIAL IVPUSH (19:12)
[2024-12-10] MEDS: oxyCODONE HCl Immed Release 5 MG TABLET PO (19:12)
[2024-12-10] MEDS: guaiFENesin 200 MG/10 ML 10 ML LIQUID PO (19:12)
[2024-12-10] MEDS: busPIRone HCl 5 MG TABLET 7.5 MG PO (20:13)
[2024-12-11] MEDS: Acetaminophen 325 MG TABLET 975 MG PO ×2 (00:20→09:53)
[2024-12-11 03:49] VITALS: BP 126/60; PULSE 72; RESP 16; TEMP 36.8; O2SAT 96
[2024-12-11] MEDS: Omeprazole 20 MG CAPSULE.DR PO (05:44)
[2024-12-11 08:00] VITALS: BP 120/57; PULSE 85; RESP 16; TEMP 36.9; O2SAT 98
[2024-12-11 08:23] LABS: IgA 230 mg/dL (70-320); IgG 573 mg/dL (600-1540); IgM 17 mg/dL (50-300)
[2024-12-11] MEDS: metroNIDAZOLE/NS 500 MG/100 ML PIGGYBACK 100 MG IV (09:41)
[2024-12-11 09:50] VITALS: BP 166/71; PULSE 78; TEMP 36.9; O2SAT 91
[2024-12-11] MEDS: Propranolol HCL LA 60 MG CAP.SA.24H PO (09:52)
[2024-12-11] MEDS: lisinopriL 2.5 MG TABLET PO (09:53)
[2024-12-11] MEDS: Cholecalciferol (Vitamin D3) 25 MCG TABLET PO (09:53)
[2024-12-11] MEDS: Primidone 50 MG TABLET 100 MG PO (09:54)
[2024-12-11 11:56] VITALS: BP 134/68; PULSE 74; RESP 16; TEMP 36.9; O2SAT 97
--- NOTE | 2024-12-11 11:59 | P.F2F_ITS ---
Service Date Service Date: 12/11/24 Encounter Date of encounter: 12/11/24 Reasons for Services Signs and symptoms assessed: physical deconditioning Reason for residential: medication treatment and teach disease management Reason for physical therapy: home safety and mobility and therapeutic exercises Homebound: Leaving the home is medically contraindicated at this time without the asist of a device and/or another person due th the listed conditions above and below. Reason homebound: unsteady gait / fall risk and unable to drive Certification: Based on the above findings, I certify that this patient is confined to the home and needs intermittent residential care, physical therapy and/or speech therapy, or continues to need occupational therapy. The patient is under my care, and I have initiated the establishment of the plan of care. The patient will be followed by a physician who will periodically review the plan of care. Time Spent With Patient Time: Total time managing care of this patient today ____ minutes.
--- NOTE | 2024-12-11 12:00 | P.DS_ITS ---
DS: Providers Provider Date of Service: 12/11/24 Date of admission: 12/06/24 04:43 Date of discharge: 12/11/24 Primary care physician: Magy Romero MD Consults: 12/06/24 07:36 Consult to Gastroenterology Routine Consulting Provider: Wendy Vega Reason for consultation: left colitis with weight loss 12/06/24 07:43 Consult to Hematology / Oncology Routine Consulting Provider: [facility] Reason for consultation: weight loss, ?renal lesion, hypodense liver lesions 12/07/24 08:29 Consult to Urology Routine Consulting Provider: [facility] Reason for consultation: ?obstructing left kidney mass DS: Diagnosis Discharge Diagnosis (1) Bacteremia due to Proteus species: Status: Acute (2) Renal cyst: Status: Acute (3) Abdominal pain: Status: Acute (4) Diarrhea: Status: Acute (5) Sepsis: Status: Acute (6) Acute dehydration: Status: Acute (7) Loss of appetite: Status: Acute (8) Weakness: Status: Acute (9) Colitis: Status: Acute DS: Summary Hospital Course Hospital Course: Admission note HPI pt is an 89 yo f with a pmhx significant for HTN, CAD< GED, LBBB, chronic low back pain due to disc disease, and spinal stenosis, who presented to the ED due to dysuria, nausea, vomiting, diarrhea, and inability to eat or drink for the past 3 days due to her sx. she has severe upper abd pain, worse with coughing, and has had a dry cough. no recent abx or travel. significant diarrhea without blood. the history was cut short as the pt could not speak without coughing. Hospital course The patient was admitted for treatment of Sepsis due to colitis and urinary tract infection with left kidney cyst causing Proteus bactremia. CT scan Abd\Pel on admission showing Colitis left hemicolon. 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 Underlying mass can not be excluded along other findings. Treated with IV fluids, IV Ceftriaxone and Flagyl with good response over the course of hospital stay as she was able to tolerate advancing diet. Seen by GI team who suggested ischemic vs infectious colitis, plan for CT colonography planned by dr Bell as outpatient. Urine, blood and Lt kidney cultures grew sensitive proteus. Urology evaluated the patient for obstructing lesion in left kidney rec 14 days Abx and draining the cyst which was done on 12/10 draining pus which is growing GNR at time of discharge likely Proteus as well. Pathology pending from the cyst. Discussed with urology who recommended outpatient follow up and possible radiation treatment if malignant mass. Reported Unintentional weight loss that suspicious related to renal lesion and hepatic cysts are chronic along with macrocytic anemia. Oncology evaluated the patient and recommended hematological workup. This could be related to underlying infection/malignancy. Primary bone marrow disorder such as myelodysplastic syndrome is also in the differential diagnosis. She will need to follow with Hematology\Oncology as outpatient for further work up. Discharge plan Continue Ceftin for 2 more weeks Follow with Dr Matute office in 2 weeks Increase physical activity as tolerated Advance your diet and increase fluids intake CT colonography planned by dr Bell as outpatient follow with Hematology\Oncology as outpatient for further work up of Anemia Time Attestation Discharge Coordination Time (in mins): 43 Quality: Safe Use of Opioids Does Pt have an Active Cancer Diagnosis on the Problem List?: No Quality: Stroke Does the patient have a stroke diagnosis?: No Physical Exam Vital Signs: Vital Signs: Last Vital Signs Temp 98.4 F 12/11/24 11:56 Pulse 74 12/11/24 11:56 Resp 16 12/11/24 11:56 BP 134/68 12/11/24 11:56 Pulse Ox 97 12/11/24 11:56 O2 Del Method Room Air 12/11/24 11:56 O2 Flow Rate 2 12/10/24 11:57 BMI result Body Mass Index 20.9 Const: Other: Constitutional : interactive, not in distress Cardiovascular : no JVP, no lower extremity edema Respiratory : bilateral chest movement, not in resp distress Gastrointestinal: soft, lax, Non tender Skin : Warm, Dry Neurological : Alert & oriented , No focal deficit DS: Data Data Completed and Pending Pending studies at discharge: Pending at discharge 12/10/24 11:55 Cytology [PTH] Routine Labs on day of discharge: Laboratory Results - last 24 hr 12/08/24 15:40 IgG Total 573 L IgA Total 230 IgM 17 L BARBARA Interpretation Preliminary micro results at discharge 12/10/24 11:40 Urine Culture - Preliminary Urine Other - Kidney Left Gram negative pat 12/10/24 11:40 Urine Culture - Preliminary Urine Other - Kidney Left No growth to date. Imaging Chest x-ray: Radiologist's impression: ITS Impressions Renal Biopsy CT 12/10/24 11:02 IMPRESSION: Successful CT fluoroscopy guided biopsy of mid pole complex lesion and aspiration. Successful CT fluoroscopy guided aspiration of upper pole cystic lesion which is predominantly puss. Recommend urology consult. Electronically signed by: Kumar Vickers MD 12/10/2024 04:[address] ABD\PELVIS Impression: 1. Colitis left hemicolon. No significant diverticular disease. 2. 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 Underlying mass can not be excluded. The cystic component has progressed on serial studies and therefore obstructive calices can be considered 3. Mild pleural-parenchymal disease lung bases. Mesenteric edema. Moderate free fluid in the pelvis. Diverticulosis coli. This document has been electronically signed by: Raad Gabriel MD on 12/06/2024 07:18:40 Discharge Plan Discharge Anticipated Discharge Date/Time: 12/11/24 10:57 Patient Disposition: Home Health Service Discharge Diagnosis: Urine infection Renal cyst Colitis Referrals: Mary AGARWAL [Outside] - 1 Week (HOME SERVICES FOR [facility]- A NURSE WILL CALL YOU TO SET UP FIRST VISIT) Magy Romero MD [Primary Care Provider] - 1 Week Discharge Medications: New cefuroxime axetil 500 mg tablet 500 mg PO BID Qty: 28 0RF Continued (DME) miscellaneous medical supply Misc See Rx Instructions .Route Qty: 1 0RF Rx Instructions: Elevated toilet seat with handles lisinopril 2.5 mg tablet 2.5 mg PO DAILY Qty: 90 3RF cyanocobalamin (vitamin B-12) 1,000 mcg/mL solution 1,000 mcg IM Q4W Qty: 3 3RF Patient Comments: Due on Saturday12/07/24 buspirone 7.5 mg tablet 7.5 mg PO BEDTIME propranolol 60 mg capsule,extended release 24 hr 60 mg PO DAILY cholecalciferol (vitamin D3) 25 mcg (1,000 unit) Tablet 25 mcg PO DAILY primidone 50 mg tablet 150 mg PO BEDTIME omeprazole 20 mg capsule,delayed release(DR/EC) 20 mg PO DAILY@0630 acetaminophen [Tylenol Extra Strength] 500 mg tablet 1,000 mg PO BID Prolia 60 mg/mL syringe 60 mg subcut [id number] Patient Comments: Due on 12/14/24 Discharge Orders: Discharge Order (Routine); Ordered 12/11/24 Ordered By: Lorena Romero Diet: Advance to usual diet Activity on Discharge: As tolerated Stand Alone Forms: Patient Portal Discharge page Print Language: Honduran Care Plan Goals: Continue Ceftin for 2 more weeks Follow with Dr Matute office in 2 weeks Increase physical activity as tolerated Advance your diet and increase fluids intake CT colonography planned by dr Bell as outpatient follow with Hematology\Oncology as outpatient for further work up of Anemia Health Concerns: Urine infection, Infected kidney cyst Plan of Treatment: Antibiotics Assessment: as above
--- NOTE | 2024-12-11 12:56 | MHC.CM.PN ---
Addendum entered by Deyanira Barahona 12/11/24 14:05: FINAL IMM DELIVERED Original Note: DP: PT HAS BEEN MEDICALLY CLEARED FOR DC HOME WITH [facility] FOR SN[facility]PT. PT HAS OWN RIDE HOME.
[2024-12-11 13:28] VITALS: BP 144/67; PULSE 80; RESP 16; TEMP 36.8; O2SAT 98
--- NOTE | 2024-12-15 11:10 | P.CDIM_ITS ---
PROVIDER RESPONSE TEXT: To clarify, the appropriate diagnosis supported by the clinical indicators: Diastolic: chronic QUERY TEXT: PHYSICIAN'S DOCUMENTATION REQUEST Date of Query: 12/11/2024 07:59 AM EDT Patient Name: Jocelyn Mejia Admit Date: 12/06/2024 Dear Lorena Romero MD, A review of the medical record indicates additional documentation may be needed. Please review below and update the documentation accordingly. Clinical Indicators: Hematology consultation note dated 12/07/24 - CT angiogram of chest shows no PE, likely mild Congestiv e heart failure. BNP 243 History of Echo performed. Please provide further specificity regarding the most likely type and acuity of the noted CHF: Systolic Please specify if Acute, Chronic, or Acute on chronic, or Unable to determine Diastolic Please specify if Acute, Chronic, or Acute on chronic, or Unable to determine Combined Systolic/Diastolic Please specify if Acute, Chronic, or Acute on chronic, or Unable to determine Other (explain) Clinically unable to determine (explain) Thank you, Elodia Gay, CCS, CDIS Use of terms such as suspected, likely, concern for, or probable (associated with a specific diagnosi s that is being evaluated, monitored, or treated as if it exists) are acceptable and can be coded in the inpatient se tting, when documented at the time of discharge. Please use your independent medical judgment in providing your response. THIS QUERY IS PART OF THE PERMANENT MEDICAL RECORD
== END 2024-12-11 13:50 | disposition home health service (06) | DRG 871 ==
LOC: HO.ED 20:11 → HO.EDOVER 12-06 04:53 → HO.S3 12-06 07:51
PROVIDERS: Internal Medicine; Radiology Diagnostic Radiology; Admitting Provider Physician Assistant; Emergency Provider Emergency Medicine Emergency Medical Services; PCP Internal Medicine; Visit Provider Student in an Organized Health Care Education/Training Program
PROC: 0T913ZX Drainage of Left Kidney, Percutaneous Approach, Diagnostic (ICD-10-PCS; principal; 2024-12-10 11:00)
DX: A41.9 Sepsis, unspecified organism (principal); J69.0 Pneumonitis due to inhalation of food and vomit; N39.0 Urinary tract infection, site not specified; A09 Infectious gastroenteritis and colitis, unspecified; K55.9 Vascular disorder of intestine, unspecified; I25.10 Atherosclerotic heart disease of native coronary artery without angina pectoris; N28.1 Cyst of kidney, acquired; E87.6 Hypokalemia; G25.0 Essential tremor; B96.4 Proteus (mirabilis) (morganii) as the cause of diseases classified elsewhere; K21.9 Gastro-esophageal reflux disease without esophagitis; Z66 Do not resuscitate; M54.59 Other low back pain; Z87.440 Personal history of urinary (tract) infections; G89.29 Other chronic pain; I44.7 Left bundle-branch block, unspecified; I11.0 Hypertensive heart disease with heart failure; D53.9 Nutritional anemia, unspecified; Z20.822 Contact with and (suspected) exposure to COVID-19; Z79.620 Long term (current) use of immunosuppressive biologic; Z79.899 Other long term (current) drug therapy
CPT/HCPCS: 0241U; 10160; 36415; 50200; 71045; 71275; 74177; 76775; 77012; 80048; 80053; 81001; 82784; 82803; 83010; 83605; 83615; 83690; 83735; 83880; 84484; 85025; 85027; 85045; 86334; 87040; 87077; 87086; 87088; 87147; 87186; 87205; 87493; 87507; 88305; 93005; 97162; 99152; 99153; 99285; J0456; J0696; J1650; J1836; J1885; J2250; J2405; J3010; J7120; Q9967

== ENCOUNTER → 2024-12-05 17:56 | Outpatient (BNV) | payer MEDICARE, OTHER, SELFPAY | PROVIDERS: Emergency Provider Emergency Medicine Emergency Medical Services; Visit Provider Radiology Diagnostic Radiology | DX: R05.9 Cough, unspecified (principal); R50.9 Fever, unspecified | CPT/HCPCS: 71045 ==

== ENCOUNTER → 2024-12-05 17:59 | Outpatient (BNV) | payer MEDICARE, OTHER, SELFPAY | PROVIDERS: Admitting Provider Physician Assistant; Emergency Provider Emergency Medicine Emergency Medical Services; Visit Provider Internal Medicine Cardiovascular Disease | DX: I44.7 Left bundle-branch block, unspecified (principal) | CPT/HCPCS: 93010 ==

== ENCOUNTER 2024-12-06 04:43 | Outpatient (BNV) | payer MEDICARE, OTHER, SELFPAY | END 2024-12-09 14:07 | PROVIDERS: Admitting Provider Physician Assistant; Emergency Provider Emergency Medicine Emergency Medical Services; PCP Internal Medicine; Visit Provider Radiology Diagnostic Radiology | DX: N28.89 Other specified disorders of kidney and ureter (principal) | CPT/HCPCS: 76775 ==

== ENCOUNTER 2024-12-06 04:43 | Outpatient (BNV) | payer MEDICARE, OTHER, SELFPAY | END 2024-12-06 06:02 | PROVIDERS: Admitting Provider Physician Assistant; Emergency Provider Emergency Medicine Emergency Medical Services; Visit Provider Radiology Diagnostic Radiology | DX: N28.1 Cyst of kidney, acquired (principal); K52.9 Noninfective gastroenteritis and colitis, unspecified; J94.8 Other specified pleural conditions; R05.9 Cough, unspecified; R00.0 Tachycardia, unspecified | CPT/HCPCS: 71275 ==

== ENCOUNTER 2024-12-06 04:43 | Outpatient (BNV) | payer MEDICARE, OTHER, SELFPAY | END 2024-12-10 11:02 | PROVIDERS: Admitting Provider Physician Assistant; Emergency Provider Emergency Medicine Emergency Medical Services; PCP Internal Medicine; Visit Provider Radiology Diagnostic Radiology | DX: N28.1 Cyst of kidney, acquired (principal) | CPT/HCPCS: 50200; 77012 ==

== ENCOUNTER → 2024-12-06 04:43 | Outpatient (BNV) | payer MEDICARE, OTHER, SELFPAY | PROVIDERS: Admitting Provider Physician Assistant; Emergency Provider Emergency Medicine Emergency Medical Services; Visit Provider Internal Medicine | DX: A41.9 Sepsis, unspecified organism (principal); N39.0 Urinary tract infection, site not specified; R05.9 Cough, unspecified; D64.9 Anemia, unspecified; R19.7 Diarrhea, unspecified; R10.9 Unspecified abdominal pain; I25.10 Atherosclerotic heart disease of native coronary artery without angina pectoris | CPT/HCPCS: 99223; 99499 ==

== ENCOUNTER → 2024-12-06 04:43 | Outpatient (BNV) | payer MEDICARE, OTHER, SELFPAY | PROVIDERS: Admitting Provider Physician Assistant; Emergency Provider Emergency Medicine Emergency Medical Services; PCP Internal Medicine; Visit Provider Urology | DX: N28.1 Cyst of kidney, acquired (principal) | CPT/HCPCS: 99222 ==

== ENCOUNTER → 2024-12-06 04:43 | Outpatient (BNV) | payer MEDICARE, OTHER, SELFPAY | PROVIDERS: Admitting Provider Physician Assistant; Emergency Provider Emergency Medicine Emergency Medical Services; PCP Internal Medicine; Visit Provider Internal Medicine Gastroenterology | DX: R10.9 Unspecified abdominal pain (principal); R19.7 Diarrhea, unspecified; D64.9 Anemia, unspecified | CPT/HCPCS: 99222 ==

== ENCOUNTER → 2024-12-06 04:43 | Outpatient (BNV) | payer MEDICARE, OTHER, SELFPAY | PROVIDERS: Admitting Provider Physician Assistant; Emergency Provider Emergency Medicine Emergency Medical Services; PCP Internal Medicine; Visit Provider Internal Medicine | DX: N28.1 Cyst of kidney, acquired (principal); D53.9 Nutritional anemia, unspecified | CPT/HCPCS: 99222; 99232 ==

== ENCOUNTER 2024-12-17 10:50 | Outpatient (AMB) | payer MEDICARE, OTHER, SELFPAY ==
--- NOTE | 2024-12-17 11:06 | MHC.PC.OV ---
Vital Signs 12/17/24 11:09 Height 5 ft 4 in Weight 123 lb BMI 21.1 BP 138/78 Blood Pressure Location Rt brachial Position Sitting Respiration 17 Pulse 64 Pulse Source Pulse Oximeter Temp 98.0 F Temp Source Oral Pulse Oximetry (%) 100 Oxygen Delivery Method Room Air Intake Visit Reasons: TCM Intake Note: Pt is here today to f/u TCM Allergies No Known Allergies Allergy (Verified 12/17/24 11:07) Tobacco use date assessed: 12/17/24 Last assessed Fall Risk: 12/17/24 Dental Screening Dental Screen Date: 11/05/24 HPI TCM TCM Information Date of Discharge 12/11/24 Discharged From [facility] Medical History History of constipation Altered bowel habits COVID-19 Vitamin B12 deficiency Osteoarthritis, hip, bilateral Dextroscoliosis of thoracolumbar spine Facial skin lesion Generalized anxiety disorder Dyspnea on exertion Left bundle branch block Chronic right hip pain Acquired renal cyst of left kidney 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 Mother Arthritis Son No problems noted. Daughter No problems noted. Brother No problems noted. Social History Household Members: None Housing: Apartment Do you presently have visiting nurse or other home services: No Alcohol intake: former Patient Tobacco Use Status: Never used Tobacco Tobacco use type: Cigarette e-Cigarette/Vaping Use: Never Used Second Hand Smoke Exposure: Yes Advance Directives Date on File: 03/11/24 service: No Current occupational status: retired Current occupation: Retired Cognitive needs: No Hearing needs: No Vision needs: Yes Questionnaire Thrive Questionnaire Date Thrive assessed: 08/31/24 I am a: Patient What is your living situation today?: I choose not to answer this question Within the past 12 months, did the food you bought not last and you didn't have the money to get more?: I choose not to answer this question Within the past 12 months, did you worry whether your food would run out before you got money to buy more?: I choose not to answer this question Do you have trouble paying for medicines?: I choose not to answer this question Do you have trouble getting transportation to medical appointments?: I choose not to answer this question Do you have trouble paying your heating and electricity bill?: I choose not to answer this question Do you have trouble taking care of your child, family member or friend?: I choose not to answer this question Do you have trouble with day-to-day activities such as bathing, preparing meals, shopping, managing finances, etc.?: I choose not to answer this question Are you currently unemployed and looking for a job?: I choose not to answer this question Are you interested in more education?: I choose not to answer this question Please select the resources that you would like help with: None Currently or been in a relationship where the following occur: I choose not to answer THRIVE Score: 0 MICHAEL-7 AMB Questionnaire MICHAEL-7 Date MICHAEL - 7 assessed: 08/31/24 Source: Developed by Drs. Brian Gomez, Peg Reyez, John Saucedo and colleagues, with an educational tati from [employer]. Physical exam (Primary Care) Vital Signs: Last Vital Signs Temp 98.0 F 12/17/24 11:09 Pulse 64 12/17/24 11:09 Resp 17 12/17/24 11:09 BP 138/78 12/17/24 11:09 Pulse Ox 100 12/17/24 11:09 Oxygen Delivery Method Room Air 12/17/24 11:09 BMI result Body Mass Index 21.1 Tobacco/Smoking Status: Tobacco use Status Tobacco use date assessed 12/17/24 12/17/24 11:12 Patient Tobacco Use Status Never used Tobacco 12/17/24 11:06 Tobacco use type Cigarette 12/17/24 11:06 e-Cigarette/Vaping Use Never Used 12/17/24 11:06 Thrive Assessment: Date of Thrive Assessment Date Thrive assessed 08/31/24 12/17/24 11:06 Currently or been in a relationship where the following occur: I choose not to answer Office Meds cyanocobalamin (vitamin B-12) 1,000 mcg/mL injection solution Performing Provider: Magy Romero MD Performing Location: [facility] [place] [facility] Administered by: Alva Wang on 12/17/24 11:44 Dose Route Admin Location Dispensed Lot Number Expiration Date [facility] Digital Media Specialist 1,000 mcg IM right deltoid 1 mL [id number] 02/12/27 04459-419-80 SIMA STARKS Coding Diagnoses Vitamin B12 deficiency E53.8 Pedal edema R60.0 Nausea R11.0 Anemia D64.9 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 Generalized anxiety disorder F41.1 Osteoporosis M81.0 Essential hypertension I10 Complex renal cyst N28.1 Assessment & Plan Assessment & Plan (1) Vitamin B12 deficiency: Code(s): E53.8 - Deficiency of other specified B group vitamins Category: Medical (2) Pedal edema: Code(s): R60.0 - Localized edema Category: Medical (3) Nausea: Code(s): R11.0 - Nausea (4) Anemia: Code(s): D64.9 - Anemia, unspecified Category: Medical (5) Varicose vein of leg: Code(s): I83.90 - Asymptomatic varicose veins of unspecified lower extremity Category: Medical (6) Generalized anxiety disorder: Code(s): F41.1 - Generalized anxiety disorder Category: Medical (7) Osteoporosis: Comment: sees Dr Ortiz Code(s): M81.0 - Age-related osteoporosis without current pathological fracture Category: Medical (8) Essential hypertension: Code(s): I10 - Essential (primary) hypertension Category: Medical (9) Complex renal cyst: Code(s): N28.1 - Cyst of kidney, acquired Category: Medical
[2024-12-17 11:09] VITALS: BP 138/78; PULSE 64; RESP 17; TEMP 36.7; O2SAT 100; BMI 21.1
--- OUTSIDE RECORDS SUMMARY | 2024-12-17 12:43 | XMS_ITS | Patient Health Record ---
Author Organization [facility] Address [address] [place] [address] Care Team Providers Care Mechanical Integrity Engineer Name Role Phone Heather CONNORS, Magy Primary Care Provider Brian Tam Unavailable [phone] SALOMÓN CHAMPION Unavailable Unavailable Allergies Allergen (clinical [...] Problem Status W/U Status Risk Notes Problem 52694734 Cough (R05) Active confirmed Problem 809842296 Gastroesophageal reflux disease with esophagitis (K21.0) Active confirmed Problem 40110346 Erosive esophagi tis (K22.10) Active confirmed Problem 69131412 Constipation, unspecified constipation type (K59.00) Active confirmed Problem 45230406 Esophagitis (K20.9) Active confirmed Problem 47465877 Lower abdominal pain (R10.30) Active confirmed Plan Of Treatment Pending Test Test Name Order Date XR CHEST 2 VIEW PA & LAT 04/25/2021 Future Test Test Name Order Date UPPER GI ENDOSCOPY 11/13/2016 Insurance Providers Payer Name Payer Address Payer Phone Subscriber Number Group Number Insured Name Patient Relationship to Insured Coverage Start Date Coverage End Date MEDICARE OF [place] [address] [place] [address] [phone] [id number] JACOBS , HITESH Self - patient is the insured [employer] [address] [place] [address] [phone] [id number] FAHAD JACOBSIS Self - patient is the [...] Tremors Elevated cholesterol Degenerative joint disease Denies AL,DM,CVA,Lung disease,renal dise ase Surgical History Surgery Date(Month/Year) Cataracts/lens implants 10/2006
--- OUTSIDE RECORDS SUMMARY | 2024-12-17 12:43 | XMS_ITS ---
Author Organization [facility] Address [address] [place] [address] Care Team Providers Care Marine Pipe Welder Name Role Phone Heather CONNORS, Magy Todd Primary Care Provider Un available Bruce Dorsey Unavailable [phone] Encounters Encounter Location Date Provider Diagnosis [address] [address] 07/31/2024 Bruce Dorsey Plan Of Treatment No Information Progress Notes * JACOBS, Jocelyn CONNORSOB: [birth year] (89 yo F)Acc No.[id number]:07/31/2024 Progress Note Patient:Jocelyn FORD Provider:?Bruce Dorsey DPM :1935???Age:88 Y???Sex:Female D ate:07/31/2024 Address:[address] [place] [address] [address], [id number] Pcp:Louie Anderson Subjective: * Chief Complaints: * ??? * Medical History:? Objective: * Vitals:? Assessment: Plan: * Treatment: * Images: * The named appointment provid er may or may not be the originator of this progress note, and it is not deemed complete until electronically signed by the appointment provider. Sign off status: Pending * Provider:Mackenzie Dorsey DPM Date:?2023 Generated for Ronaki gerhard/Fajavid/eTransmitting on:?12/17/2024 12:43 PM EDT
--- OUTSIDE RECORDS SUMMARY | 2024-12-17 12:43 | XMS_ITS ---
Author Organization [facility] Address [address] [place] [address] Care Team Providers Care Manager Lean Name Role Phone Heather CONNORS, Magy Todd Primary Care Provider Un available Bruce Dorsey Unavailable [phone] Encounters Encounter Location Date Provider Diagnosis [address] [address] 08/11/2024 Bruce Dorsey Plan Of Treatment No Information Progress Notes * ARLENE Jocelyn CONNORSOB: [birth year] (89 yo F)Acc No.[id number]:08/11/2024 Progress Note Patient:Jocelyn FORD Provider:?Bruce Dorsey DPM :1935???Age:88 Y???Sex:Female D ate:08/11/2024 Address:[address] [place] [address] [address] [id number] Pcp:Louie Anderson Subjective: * Chief Complaints: * [...] DPM Date:?2023 Generated for Ronaki gerhard/Fajavid/eTransmitting on:?12/17/2024 12:42 PM EDT
--- OUTSIDE RECORDS SUMMARY | 2024-12-17 12:43 | XMS_ITS | Continuity of Care Document ---
Author Name [facility] Organization [facility] Care Team Providers Care Upstairs Maid Name Role Phone [facility] Unavailable Unavailable Medications Combined list of outpatient medications from Department of Defense and Veterans Affairs facilities.Medications provided include 1) outpatient medications from the last 15 months, and 2) patient-reported medications. Medication Details Route Status Patient Instructions Prescription Expires Prescription Number Last Dispense Date Ordering Provider Order Date Order Qty Source BUSPIRONE HCL (buspirone HCl), 7.5 MG, TABLET, ORAL, [employer] 100 ea. BOTTLE Active [id number] 2023 90 Pharmac y Data Transac tion Service Facilit y CELECOXIB (celecoxib) , 200 MG, CAPSULE, ORAL, SOLA PHARMACEU, 500 ea. BOTTLE Active [id number] 4 2023 90 Pharmac y Data Transac tion Service Facilit y LISINOPRIL (lisinopril ), 2.5 MG, TABLET, ORAL, EXELAN PHARMACE, 500 ea. BOTTLE Active [id number] 4 2023 90 Pharmac y Data Transac tion Service Facilit y OMEPRAZOLE (omeprazole ), 20 MG, CAPSULE CARLOS A HUERTA, WaveRx, 1000 ea. BOTTLE Active [id number] 4 2023 90 Pharmac y Data Transac tion Service Facilit y OMEPRAZOLE (omeprazole ), 20 MG, CAPSULE CARLOS A HUERTA, WaveRx, 1000 ea. BOTTLE Active [id number] 4 2023 90 Pharmac y Data Transac tion Service Facilit y PRIMIDONE (PRIMIDONE) , 50 MG, TABLET, ORAL, AV FAZAL, 500 ea. BOTTLE Cancele d [id number] : 2023 0 Pharmac y Data Transac tion Service Facilit y Immunizations Combined list of available immunizations from the Department of Defense and Veterans Affairs facilities. Immunization Series Date Given Administered By Site Reaction Lot Number CVX Code Drug Ui Lead Developer Status Comments Source COVID-19, mRNA, LNP-S, PF, 30 mcg/0.3 mL dose, susana-sucrose 2021 [employer] [place] (PFR) Not Given COVID-19, mRNA, LNP-S, PF, 30 mcg/0.3 mL dose, susana-sucr ose DoD COVID-19, mRNA, LNP-S, PF, 30 mcg/0.3 mL dose 2020 [employer] [place] (PFR) Not Given COVID-19, mRNA, LNP-S, PF, 30 mcg/0.3 mL dose DoD influenza, high-dose, quadrivalent 2020 BOGLI, () Not Given influenza , high-dose , [...]
--- OUTSIDE RECORDS SUMMARY | 2024-12-17 12:43 | XMS_ITS ---
Author Organization [facility] Address [address] [place] [address] Care Team Providers Care Pearl Glue Drier Name Role Phone Heather CONNORS, Magy Todd Primary Care Provider Un available Bruce Dorsey Unavailable [phone] REASON FOR VISIT no show Encounters Encounter Location Date Provider Diagnosis [address] [address] 08/11/2024 Bruce Dorsey Plan Of Treatment No Information Progress Notes * Jocelyn JACOBS MDOB: [birth year] (88 yo F)Acc No.[id number]:08/11/2024 Patient:?ARLENE Jocelyn Palma :1935???Age:88 Y???Sex:Female Address:[address] [place] [address] [address] [place], [address] * true * Date:? Generated for Printi ng/Faaparnag/eTransmitting on:?12/17/2024 12:43 PM EDT
--- OUTSIDE RECORDS SUMMARY | 2024-12-17 12:43 | XMS_ITS | Patient Health Record ---
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 fracture (M81.0) Active confirmed Problem [id number] Atherosclerosis of iliamna artery of both lower extremities, with unspecified presence of clinical manifestation (I70.203) Active confirmed Vital Signs Blood pressure diastolic 70 mm Hg 05/05/2024 Height 5 ft 4 in in 05/05/2024 Blood pressure systolic 120 mm Hg 05/05/2024 Weight 135 lbs 05/05/2024 BMI 23.17 kg/m2 05/05/2024 Procedures Procedure Date Ordered Date Performed Result Body Sit e 77411-PRKULBB NAIL, 6 OR MORE 02/25/2024 N/A 60947-Vmdepqqq Plate 02/25/2024 N/A 97297-GOIY SKIN LESIONS, OVER 4 02/25/2024 N/A 04769-CMCZSTL NAIL, 6 OR MORE 05/05/2024 N/A 91120-CVUV SKIN LESIONS, OVER 4 05/05/2024 N/A Encounters Encounter Location Date Provider Diagnosis [facility] [address] 02/25/2024 Bruce Dorsey Atherosclerosis of iliamna artery of both lower extremities, with unspecified presence of clinical manifestation I70.203 ; Tinea unguium B35.1 ; Pain in right toe(s) M79.674 ; Pain in left toe(s) M79.675 and Ingrown nail L60.0 [facility] [address] 05/05/2024 Bruce Dorsey Atherosclerosis of iliamna artery of both lower extremities, with unspecified presence of clinical manifestation I70.203 ; Tinea unguium B35.1 ; Pain in right toe(s) M79.674 and Pain in left toe(s) M79.[address] [facility] [address] 05/05/2024 [facility] [address] 07/29/2024 [facility] [address] 08/11/2024 Bruce Dorsey Assessments Encounter Date Diagnosis (ICD Code) Assessment Notes Treatment Notes Treatment Clinical Notes Section Notes 02/25/2024 Tinea unguium (ICD-10 - B35.1) 02/25/2024 Atherosclerosis of iliamna artery of both lower extremities, with unspecified presence of clinical manifestation (ICD-10 - I70.203) 05/05/2024 Tinea unguium (ICD-10 - B35.1) 05/05/2024 Atherosclerosis of iliamna artery of both lower extremities, with unspecified presence of clinical manifestation (ICD-10 - I70.203) 05/05/2024 Pain in right toe(s) (ICD-10 - M79.674) 02/25/2024 Pain in right toe(s) (ICD-10 - M79.674) 02/25/2024 Pain in left toe(s) (ICD-10 - M79.675) 05/05/2024 Pain in left toe(s) (ICD-10 - M79.675) 02/25/2024 Ingrown nail (ICD-10 - L60.0) Plan Of Treatment Pending Test Test Name Order Date X ray : Foot, right 3V 12/28/2022 44683-XILMSNU NAIL, 6 OR MORE 02/05/2023 16954-HVWDJCE NAIL, 6 OR MORE 11/13/2022 20019-XCYVNOL NAIL, 6 OR MORE 04/16/2023 22914-IHMBPDC NAIL, 6 OR MORE 07/02/2023 49666-PIBYRTT NAIL, 6 OR MORE 09/20/2023 78589-ZEHYDUF NAIL, 6 OR MORE 12/03/2023 11661-BFYALIS NAIL, 6 OR MORE 02/25/2024 75512-GCMQCSR NAIL, 6 OR MORE 05/05/2024 54014-UTMLNIY NAIL, 6 OR MORE 10/16/2011 17786-XHEBFLL NAIL, 6 OR MORE 01/15/2012 94158-UKVYVPM NAIL, 6 OR MORE 04/22/2012 24930-FKJRFVN NAIL, 6 OR MORE 07/22/2012 84793-JRDFUOU NAIL, 6 OR MORE 10/07/2012 10591-MMFKUXK NAIL, 6 OR MORE 12/30/2012 16138-EPLCPCV NAIL, 6 OR MORE 03/31/2013 64535-OFDDVCN NAIL, 6 OR MORE 06/30/2013 05110-WFXUDCW NAIL, 6 OR MORE 10/06/2013 79702-AKVIVZQ NAIL, 6 OR MORE 01/05/2014 63326-TIMYQVD NAIL, 6 OR MORE 07/06/2014 20904-YJRBAED NAIL, 6 OR MORE 10/26/2014 11540-TKDSDJF NAIL, 6 OR MORE 01/04/2015 07600-MUGSRUS NAIL, 6 OR MORE 04/05/2015 42122-AUJPSFB NAIL, 6 OR MORE 06/14/2015 90672-JRXSDYW NAIL, 6 OR MORE 04/02/2014 34387-WKSBQXY NAIL, 6 OR MORE 09/06/2015 68285-FQYMUIV NAIL, 6 OR MORE 12/02/2015 18898-DZSBHNS NAIL, 6 OR MORE 02/10/2016 68188-IMYTZKH NAIL, 6 OR MORE 04/13/2016 94809-GXTPCJI NAIL, 6 OR MORE 06/22/2016 67487-RJOVDGI NAIL, 6 OR MORE 09/04/2016 41745-SZKWXBJ NAIL, 6 OR MORE 11/16/2016 15558-BLYBUVI NAIL, 6 OR MORE 01/29/2017 53691-RNSXKVK NAIL, 6 OR MORE 04/12/2017 25697-DHJRNEV NAIL, 6 OR MORE 06/25/2017 25524-EWRTJAK NAIL, 6 OR MORE 09/03/2017 01323-VTDSQOP NAIL, 6 OR MORE 11/08/2017 24160-JECVLOF NAIL, 6 OR MORE 01/10/2018 64777-ZQBOMKY NAIL, 6 OR MORE 03/25/2018 41909-ZEZVOAP NAIL, 6 OR MORE 05/27/2018 46226-UKPEJWC NAIL, 6 OR MORE 09/09/2018 25849-WOFNCGJ NAIL, 6 OR MORE 12/05/2018 88568-WZPHXSC NAIL, 6 OR MORE 02/24/2019 22849-TGQDVET NAIL, 6 OR MORE 05/29/2019 84030-MBKHOKV NAIL, 6 OR MORE 08/04/2019 19725-VNHXCZX NAIL, 6 OR MORE 11/10/2019 69949-OWMPOMG NAIL, 6 OR MORE 02/02/2020 68745-JGLXLFX NAIL, 6 OR MORE 04/12/2020 59695-WLJFJEP NAIL, 6 OR MORE 06/24/2020 64146-BXHTSQJ NAIL, 6 OR MORE 09/13/2020 15006-GBVKUBZ NAIL, 6 OR MORE 12/20/2020 05301-NCNMSMP NAIL, 6 OR MORE 02/28/2021 64574-ODWQMTZ NAIL, 6 OR MORE 05/16/2021 28785-FTKVCUM NAIL, 6 OR MORE 09/15/2021 28067-JMBVACC NAIL, 6 OR MORE 11/17/2021 82120-VIBBILC NAIL, 6 OR MORE 02/02/2022 07249-GNIDFZJ NAIL, 6 OR MORE 04/24/2022 04805-YLJJSOR NAIL, 6 OR MORE 07/06/2022 43154-BJWJZHW NAIL, 6 OR MORE 09/11/2022 30985-Ibruqyja Plate 06/01/2022 54196-Bipwielw Plate 09/11/2022 34100-Cxiirbiw Plate 04/24/2022 51100-Xblfljvy Plate 02/02/2022 47867-Ajhgkcwl Plate 11/17/2021 44849-Ojxksgbn Plate 09/15/2021 07361-Dmsgnrgc Plate 05/16/2021 89025-Qughhcjv Plate 02/28/2021 02890-Rmuzudsz Plate 12/20/2020 95729-Mkhcjsld Plate 09/13/2020 85883-Qgzkmmah Plate 06/24/2020 08409-Nprhnllx Plate 10/07/2012 16889-Kjadpxoj Plate 04/12/2020 63145-Diksobfl Plate 02/02/2020 93256-Wjiipxwn Plate 11/10/2019 39389-Quadslvi Plate 12/05/2018 00382-Ipqyrick Plate 09/09/2018 73317-Uwookodh Plate 05/27/2018 20830-Fcergvmj Plate 01/10/2018 50699-Mvkscaxr Plate 04/12/2017 37781-Iqakqelr Plate 09/04/2016 25676-Yajdqeev Plate 09/06/2015 58866-Tkiiyizg Plate 04/02/2014 78156-Ksgzjvqc Plate 06/14/2015 36824-Cidfmror Plate 04/05/2015 76155-Gjttxmka Plate 01/04/2015 09574-Effoponb Plate 10/26/2014 06921-Vzipwpic Plate 07/06/2014 39485-Azdpkeqr Plate 06/30/2013 65114-Yvpaaivf Plate 01/15/2012 98117-Iqxfzthq Plate 02/25/2024 52244-Puarlswr Plate 12/03/2023 48354-Yuuiqgng Plate 07/02/2023 46833-Fdwdssjn Plate 04/16/2023 24913-Hmqvjlxi Plate 11/13/2022 28245-Fqfihjra Plate 02/05/2023 99719-Esbcggqh Plate Each Additional 10/2014 08063-Lakpaevf Plate Each Additional 07/2015 36181-Wlqpuigy Plate Each Additional 06/2015 08295-Molkkntq Plate Each Additional 12026-Cdscbeoi Plate Each Additional 07/2019 72479-Jbsgaqbb Plate Each Additional 63298-Fwlslrjg Plate Each Additional 68523-Ifaijzbe Plate Each Additional 86408-Ffxpgmkf Plate Each Additional 01/2021 72382-Jpvspsqs Plate Each Additional 95838-Xcysnwnl Plate Each Additional 59106-Pkjhcamw Plate Each Additional 65839-Ppahdgee Plate Each Additional 05/2022 83733 I&D ABSCESS- SIMPLE,SINGLE 014 42583 I&D ABSCESS- SIMPLE,SINGLE 012 46854 I&D ABSCESS- SIMPLE,SINGLE 023 13530-XGPX SKIN LESIONS, OVER 4 05/05/20 24 22586-QFJE SKIN LESIONS, OVER 4 02/06/20 23 69709-CJXK SKIN LESIONS, OVER 4 11/14/19 23 72518-OTCW SKIN LESIONS, OVER 4 04/16/20 23 48253-WXKE SKIN LESIONS, OVER 4 07/02/20 23 52407-ESDF SKIN LESIONS, OVER 4 09/20/19 24 67001-VBNA SKIN LESIONS, OVER 4 12/03/19 24 71224-GBKV SKIN LESIONS, OVER 4 02/25/20 24 97887-MXXM SKIN LESIONS, OVER 4 09/04/19 17 03993-GNKB SKIN LESIONS, OVER 4 11/17/19 17 72295-OULF SKIN LESIONS, OVER 4 01/30/20 17 31134-NXZL SKIN LESIONS, OVER 4 06/22/20 16 00756-GVUD SKIN LESIONS, OVER 4 04/13/20 16 48115-QGTA SKIN LESIONS, OVER 4 04/12/20 09927-YLIY SKIN LESIONS, OVER 4 06/25/20 17 59810-HYMG SKIN LESIONS, OVER 4 11/09/19 18 27227-VKJF SKIN LESIONS, OVER 4 09/03/19 18 85745-FORG SKIN LESIONS, OVER 4 02/03/20 60087-ZRSE SKIN LESIONS, OVER 4 11/18/19 26035-BCJD SKIN LESIONS, OVER 4 04/24/20 66051-OEDR SKIN LESIONS, OVER 4 07/06/20 88648-APJC SKIN LESIONS, OVER 4 09/11/19 23 24895-OOFF SKIN LESIONS, OVER 4 09/15/19 32851-RWSX SKIN LESIONS, OVER 4 05/16/20 06422-RMEH SKIN LESIONS, OVER 4 02/29/20 81893-VRLK SKIN LESIONS, OVER 4 12/21/19 27358-HRJZ SKIN LESIONS, OVER 4 09/13/19 01047-IPIC SKIN LESIONS, OVER 4 06/24/20 20 85332-FYFT SKIN LESIONS, OVER 4 11/10/19 39722-CGBR SKIN LESIONS, OVER 4 08/04/20 91417-UTHR SKIN LESIONS, OVER 4 02/02/20 81211-TTLP SKIN LESIONS, OVER 4 04/12/20 19807-ERRZ SKIN LESIONS, OVER 4 12/06/19 66482-BMGM SKIN LESIONS, OVER 4 05/29/20 43704-JPNA SKIN LESIONS, OVER 4 02/25/20 97202-YQPV SKIN LESIONS, OVER 4 01/11/20 18 50429-XCRL SKIN LESIONS, OVER 4 03/25/20 18 78892-XNKL SKIN LESIONS, OVER 4 05/27/20 18 37469-TXFT SKIN LESIONS, OVER 4 09/09/19 19 02391-AMYJ SKIN LESIONS, 2 TO 4 06/14/20 15 28808-YAUZ SKIN LESIONS, 2 TO 4 04/05/20 15 08511-RLEO SKIN LESIONS, 2 TO 4 04/02/20 14 69734-XXHF SKIN LESIONS, 2 TO 4 09/06/19 16 84496-NSGM SKIN LESIONS, 2 TO 4 02/10/20 16 89492-UTEA SKIN LESIONS, 2 TO 4 12/02/19 16 31997-GFIF SKIN LESIONS, 2 TO 4 01/15/20 12 69250-IJSV SKIN LESIONS, 2 TO 4 07/22/20 12 65121-RMYF SKIN LESIONS, 2 TO 4 04/22/20 12 27436-NIMI SKIN LESIONS, 2 TO 4 06/30/20 13 14086-XOQI SKIN LESIONS, 2 TO 4 03/31/20 13 58272-NTQI SKIN LESIONS, 2 TO 4 12/31/19 13 56069-FITU SKIN LESIONS, 2 TO 4 10/07/19 13 63824-CJYS SKIN LESIONS, 2 TO 4 07/06/20 14 20561-OBPN SKIN LESIONS, 2 TO 4 01/06/20 14 38244-GFAY SKIN LESIONS, 2 TO 4 10/06/19 14 64099-ITCZ SKIN LESIONS, 2 TO 4 01/05/20 15 99307-FJJT SKIN LESIONS, 2 TO 4 10/27/19 15 Insurance Providers Payer Name Payer Address Payer Phone Subscriber Number Group Number Insured Name Patient Relationship to Insured Coverage Start Date Coverage End Date Medicare [employer] [address] [place] [address] [phone] [id number] Jocelyn Mejia Self - patient is the insured [employer] [address] [place] [id number] [phone] [id number] Brandon Mejia Spouse - patient is the spouse of the insured Medical (General) History Medical History History ICD Code Arthritis back pain Cholesterol Hiatal hernia osteoporosis reflux hypertension ASO/PVD Arthritis - Degenerative Surgical History Surgery Date(Month/Year) Hospitalization History Reason Date(Month/Year) [facility] Acid reflux 09/08-09/12 [facility]- Flu 10/15
== END 2024-12-17 11:54 | disposition home or self-care (01) ==
LOC: HO.HMCC 10:50
PROVIDERS: PCP Internal Medicine; Visit Provider Internal Medicine
DX: E53.8 Deficiency of other specified B group vitamins (principal)

== ENCOUNTER → 2024-12-17 10:50 | Outpatient (BNVA) | payer MEDICARE, OTHER, SELFPAY | PROVIDERS: PCP Internal Medicine; Visit Provider Internal Medicine | DX: E53.8 Deficiency of other specified B group vitamins (principal); R60.0 Localized edema; R11.0 Nausea; F41.1 Generalized anxiety disorder; I10 Essential (primary) hypertension; N28.1 Cyst of kidney, acquired; R25.1 Tremor, unspecified; K52.9 Noninfective gastroenteritis and colitis, unspecified; D53.9 Nutritional anemia, unspecified | CPT/HCPCS: 96372; 99496; J3420 ==

== ENCOUNTER 2024-12-23 13:20 | Outpatient (AMB) | payer MEDICARE, OTHER, MEDICAID, SELFPAY ==
--- NOTE | 2024-12-23 13:32 | MHC.OFFVIS ---
Intake Visit Reasons: 1y/US/ biopsy results Intake Note: Patient is present for am 1 year follow up/US/Biopsy results Urology Medications: none Antibiotic Allergy: None Blood Thinner: None State Game Warden Required: No Accompanied by: Self / Same As Patient Allergies No Known Allergies Allergy (Verified 12/23/24 15:07) Medication List - Last Reconciled 12/23/24 by WAQAS Rodney ascorbic acid (vitamin C) 1 g PO DAILY 90 days buspirone 7.5 mg PO BEDTIME cefuroxime axetil 500 mg PO BID cholecalciferol (vitamin D3) 25 mcg PO DAILY cyanocobalamin (vitamin B-12) 1,000 mcg IM Q4W denosumab (Prolia) 60 mg subcut [id number] lisinopril 2.5 mg PO DAILY methenamine hippurate 1 g PO DAILY 90 days miscellaneous medical supply Elevated toilet seat with handles omeprazole 20 mg PO DAILY@0630 ondansetron HCl 4 mg PO Q8H PRN primidone 150 mg PO BEDTIME propranolol ER 60 mg PO DAILY torsemide 5 mg PO QAM PRN HPI Comments Details: Jocelyn is a pleasant 89-year-old female patient of Dr. Romero who was accompanied by her family at today's office visit. She presents to the office today for a follow-up of her lower urinary tract symptoms and renal mass. In discussion with the patient today she reports since her last office visit last year she has since been recently hospitalized here at [facility] for treatment of Sepsis due to colitis and urinary tract infection with left kidney cyst causing Proteus bactremia. CT scan Abd\Pel on admission 12/18 showing Colitis left hemicolon. 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 Underlying mass can not be excluded along other findings. Cyst was drained on 12/10 with pus removed growing Gram-negative rods likely Proteus as well. She underwent a renal biopsy while admitted and these results were reviewed with the patient today. Small fragments of fibrinopurulent and necrotic material negative for malignancy. She continues with course of antibiotics as prescribed from recent hospital stay. She reports she will be done with cefuroxime seen on Saturday. We discussed initiation of methenamine and vitamin-C status post completion of antibiotic therapy. She does continue to report ongoing generalized back pain that radiates to her lower extremities. She reports be following up with rheumatology and PCP regarding this issue. She discusses having recently undergone injection therapy and feels this has been helpful. She currently denies any UTI like symptoms. She does report some discomfort at biopsy site. She does report noting decreased appetite and relates this to her current antibiotic therapy. In office urinalysis results reviewed with the patient today 3+ leukocytes negative nitrates. She denies any UTI like symptoms. We discussed close surveillance monitoring. All questions were answered. She continues to follow-up with oncology for further workup of macrocytic anemia as well as GI for colitis. She otherwise offers no other issues or concerns at this time. 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 Mother Arthritis Son No problems noted. Daughter No problems noted. Brother No problems noted. Social History Household Members: None Housing: Apartment Do you presently have visiting nurse or other home services: No Alcohol intake: former Patient Tobacco Use Status: Never used Tobacco Tobacco use type: Cigarette e-Cigarette/Vaping Use: Never Used Second Hand Smoke Exposure: Yes Advance Directives Date on File: 03/11/24 service: No Current occupational status: retired Current occupation: Retired Cognitive needs: No Hearing needs: No Vision needs: Yes Review of Systems Const Reports as per HPI Eyes Reports no additional complaints ENT Reports no additional complaints Card Reports no additional complaints Resp Reports no additional complaints GI Reports as per HPI Reports as per HPI Musc Reports as per [facility] Neuro Reports no additional complaints Psych Reports as per HPI Endo Reports no additional complaints Naif/Lymph Reports as per HPI Aller/Immun Reports no additional complaints Physical Exam Const General: cooperative, healthy appearing, comfortable, no acute distress, well developed, alert and awake Nutritional Appearance: average body habitus Orientation/consciousness: patient oriented x3 HEENT Head: Yes normal to inspection, Yes normocephalic and Yes atraumatic Ears: hearing grossly normal bilaterally Eyes General: appearance normal, both eyes and all related structures Neck Neck: Yes normal visual inspection and Yes trachea midline Chest Chest palpation & inspection: normal inspection of the chest Resp Effort & Inspection: normal respiratory effort and able to speak in complete sentences Cardio Rate: regular rate GI Inspection: Yes normal to inspection General: Yes no CVA tenderness Back/Spine/Pelvis Back: no CVA tenderness Skin General skin exam: no rashes or lesions noted Neuro General: patient oriented x3 Extrem General: Yes normal to inspection Psych Appearance: grossly normal and well kempt Mental Status: mental status grossly normal Speech and movement: Normal speech and movement present and Clear speech present Affect: normal affect Attitude: cooperative Thought process: Normal thought process present Thought content: Normal thought content present Insight: Fair insight present (Psych) Judgement: Fair judgement present (Psych) Results AMB Urinalysis, Automated UA Leukoctes 500 Fatoumata/uL Last Edit by Elisa Keenan on 12/23/24 13:43 UA Nitrite Negative Last Edit by Elisa Keenan on 12/23/24 13:43 UA Urobilinogen 0.2 mg/dL Last Edit by Elisa Keenan on 12/23/24 13:43 UA Protein 15 mg/dL Last Edit by Elisa Keenan on 12/23/24 13:43 UA pH 5.5 Last Edit by Elisa Keenan on 12/23/24 13:43 UA Blood 200 Chad/uL Last Edit by Elisa Keenan on 12/23/24 13:43 UA Specific [place] 1.015 Last Edit by Elisa Keenan on 12/23/24 13:43 UA Ketone Negative Last Edit by Elisa Keenan on 12/23/24 13:43 UA Bilirubin 0 mg/dL Last Edit by Elisa Keenan on 12/23/24 13:43 UA Glucose 0 mg/dL Last Edit by Elisa Keenan on 12/23/24 13:43 Results Reviewed Results Reviewed: Laboratory Last Values Urine pH (Auto) 5.5 12/23/24 08:15 Specific [place] (Auto) 1.015 12/23/24 08:15 Urine Protein (Auto) 15 mg/dL 12/23/24 08:15 Glucose (UA)(Auto) 0 mg/dL 12/23/24 08:15 Urine Ketones (Auto) Negative 12/23/24 08:15 Urine Blood (Auto) 200 Chad/uL 12/23/24 08:15 Urine Nitrite (Auto) Negative 12/23/24 08:15 Urine Bilirubin (Auto) 0 mg/dL 12/23/24 08:15 Urine Urobilinogen (Auto) 0.2 mg/dL 12/23/24 08:15 Leukocyte Esterase (Auto) 500 Fatoumata/uL 12/23/24 08:15 Kidney, left mid pole mass, biopsy: Small fragments of fibrinopurulent and necrotic material; negative for malignancy. Date of Service: 12/09/24 Procedure(s): US renal LT FINDINGS: Limited examination demonstrated a large, approximately 10 cm, multifocal septated anechoic and hypoechoic lesion with the areas of flow on color Doppler interrogation. IMPRESSION: Large, 10 cm, complex multifocal septated exophytic lesion/mass centered in the left kidney. Assessment & Plan Assessment & Plan (1) Complex renal cyst: Code(s): N28.1 - Cyst of kidney, acquired Category: Medical (2) Acute UTI: Code(s): N39.0 - Urinary tract infection, site not specified Category: Medical Plan In office urinalysis results reviewed with the patient today; as noted above. Recent renal biopsy results reviewed with the patient and her family today; as noted above. Start methenamine and vitamin-C as discussed and prescribed; discussed starting therapy once completed with antibiotic therapy as prescribed from recent hospital admission. Discussed, educated, and stressed the importance of adequate hydration. She currently denies any UTI like symptoms. She reports be happy with current voiding parameters. Continue follow-up with rheumatology and PCP regarding ongoing chronic back pain. Follow-up in 3 months with [facility]; or sooner with any issues, concerns, and or questions. Orders: Orders AMB Urinalysis Automated Today Z13.9 - Encounter for screening, unspecified Medications: New methenamine hippurate 1 g PO DAILY 90 days 90 tabs 1RF N39.0 - Urinary tract infection, site not specified ascorbic acid (vitamin C) 1 g PO DAILY 90 days 90 tabs 1RF N39.0 - Urinary tract infection, site not specified Patient Instructions: The patient had an opportunity to ask questions regarding the treatment plan. All questions were answered. Physical exam, labs, and imaging were discussed and reviewed in detail. As well as risks, benefits, and discussion of treatment choices. No major barriers to understanding were identified. The patient expressed understanding and agreement with the above treatment plan. The patient was made aware they should contact our office by phone for worsening of their current condition, the appearance of new symptoms, or with any questions or concerns. Compliance is encouraged with any medications and follow up testing that is ordered. It is a privilege to be allowed the opportunity to participate in? your urological care.? Again, if you have any questions or concerns If you have any questions or concerns please do not hesitate to contact me. The office is [phone]. This note is constructed using voice recognition software. While every effort has been made to ensure accuracy slider assembler errors may have been included. Yours sincerely, WAQAS Rodney Coding Level of Care Code Est Pt Level 4 (67876) Complex EM visit Add On G2211 Diagnoses Complex renal cyst N28.1 Acute UTI N39.0
--- OUTSIDE RECORDS SUMMARY | 2024-12-23 14:42 | XMS_ITS ---
Author Organization [facility] Address [address] [place] [address] Care Team Providers Care Nuclear Spectroscopist Name Role Phone Heather CONNORS, Magy Todd Primary Care Provider Un available Bruce Dorsey Unavailable [phone] Encounters Encounter Location Date Provider Diagnosis [address] [address] 08/11/2024 Bruce Dorsey Plan Of Treatment No Information Progress Notes * JACOBS, Jocelyn CONNORSOB: 9[birth year] (89 yo F)Acc No.[id number]:08/11/2024 Progress Note Patient:Jocelyn FORD Provider:?Bruce Dorsey DPM :1935???Age:88 Y???Sex:Female D ate:08/11/2024 Address:[address] [place] [address] [address] [id number] Pcp:Louie Anderson Subjective: * Chief Complaints: * ??? * Medical History:? Objective: * Vitals:? Assessment: Plan: * Treatment: * Images: * The named appointment provid er may or may not be the originator of this progress note, and it is not deemed complete until electronically signed by the appointment provider. Sign off status: Pending * Provider:Mackenzie Dorsey DPM Date:?2023 Generated for Ronaki gerhard/Fajavid/eTransmitting on:?12/23/2024 02:42 PM EDT
--- OUTSIDE RECORDS SUMMARY | 2024-12-23 14:42 | XMS_ITS ---
Author Organization [facility] Address [address] [place] [address] Care Team Providers Care Bladder Blower Name Role Phone Heather CONNORS, Magy Todd Primary Care Provider Un available Bruce Dorsey Unavailable [phone] Encounters Encounter Location Date Provider Diagnosis [address] [address] 07/31/2024 Bruce Dorsey Plan Of Treatment No Information Progress Notes * JACOBS, Jocelyn CONNORSOB: 937 (89 yo F)Acc No.[id number]:07/31/2024 Progress Note Patient:Jocelyn FORD Provider:?Bruce Dorsey DPM :1935???Age:88 Y???Sex:Female D ate:07/31/2024 Address:[address] [place] [address] [address], [id number] Pcp:Louie Anderson Subjective: * Chief Complaints: * [...]
--- OUTSIDE RECORDS SUMMARY | 2024-12-23 14:42 | XMS_ITS ---
Author Organization [facility] Address [address] [place] [address] Care Team Providers Care Faucets Assembler Name Role Phone Heather CONNORS, Magy Todd Primary Care Provider Un available Bruce Dorsey Unavailable [phone] REASON FOR VISIT no show Encounters Encounter Location Date Provider Diagnosis [address] [address] 08/11/2024 Bruce Dorsey Plan Of Treatment No Information Progress Notes * Jocelyn JACOBS MDOB: [birth year] (88 yo F)Acc No.[id number]:08/11/2024 Patient:?ARLENE Jocelyn Palma :1935???Age:88 Y???Sex:Female Address:[address] [place] [address] [address] [place], [address] * true * Date:? Generated for Printi ng/Faaparnag/eTransmitting on:?12/23/2024 02:42 PM EDT
--- OUTSIDE RECORDS SUMMARY | 2024-12-23 14:43 | XMS_ITS | Continuity of Care Document ---
Author Name [facility] Organization [facility] Care Team Providers Care Crop Duster Helper Name Role Phone [facility] Unavailable Unavailable Medications Combined list of outpatient medications from Department of Defense and Veterans Affairs facilities.Medications provided include 1) outpatient medications from the last 15 months, and 2) patient-reported medications. Medication Details Route Status Patient Instructions Prescription Expires Prescription Number Last Dispense Date Ordering Provider Order Date Order Qty Source BUSPIRONE HCL (buspirone HCl), 7.5 MG, TABLET, ORAL, [employer] 100 ea. BOTTLE Active [id number] 4 2023 90 Pharmac y Data Transac tion Service Facilit y CELECOXIB (celecoxib) , 200 MG, CAPSULE, ORAL, SOLA PHARMACEU, 500 ea. BOTTLE Active [id number] 4 2023 90 Pharmac y Data Transac tion Service Facilit y LISINOPRIL (lisinopril ), 2.5 MG, TABLET, ORAL, EXELAN PHARMACE, 500 ea. BOTTLE Active [id number] 4 2023 90 Pharmac y Data Transac tion Service Facilit y OMEPRAZOLE (omeprazole ), 20 MG, CAPSULE CARLOS A HUERTA, Vinted, 1000 ea. BOTTLE Active [id number] 4 2023 90 Pharmac y Data Transac tion Service Facilit y OMEPRAZOLE (omeprazole ), 20 MG, CAPSULE CARLOS A HUERTA, Vinted, 1000 ea. BOTTLE Active [id number] 4 2023 90 Pharmac y Data Transac tion Service Facilit y PRIMIDONE (PRIMIDONE) , 50 MG, TABLET, ORAL, AV FAZAL, 500 ea. BOTTLE Cancele d [id number] 4 [id number] : 2023 0 Pharmac y Data Transac tion Service Facilit y Immunizations Combined list of available immunizations from the Department of Defense and Veterans Affairs facilities. Immunization Series Date Given Administered By Site Reaction Lot Number CVX Code Drug Surgical Asst Status Comments Source COVID-19, mRNA, LNP-S, PF, 30 mcg/0.3 mL dose, susana-sucrose 2021 NICHOLASEKANTERIOS [place] (PFR) Not Given COVID-19, mRNA, LNP-S, PF, 30 mcg/0.3 mL dose, susana-sucr ose DoD COVID-19, mRNA, LNP-S, PF, 30 mcg/0.3 mL dose 2020 KARIANTERIOS [place] (PFR) Not Given COVID-19, mRNA, LNP-S, [...]
--- OUTSIDE RECORDS SUMMARY | 2024-12-23 14:43 | XMS_ITS | Patient Health Record ---
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, with unspecified presence of clinical manifestation (I70.203) Active confirmed Vital Signs Blood pressure diastolic 70 mm Hg 05/05/2024 Height 5 ft 4 in in 05/05/2024 Blood pressure systolic 120 mm Hg 05/05/2024 Weight 135 lbs 05/05/2024 BMI 23.17 kg/m2 05/05/2024 Procedures Procedure Date Ordered Date Performed Result Body Sit e 19500-JEDUUWY NAIL, 6 OR MORE 05/05/2024 N/A 55969-AYIP SKIN LESIONS, OVER 4 05/05/2024 N/A 52477-YTEE SKIN LESIONS, OVER 4 02/25/2024 N/A 89771-Bxkgsbkq Plate 02/25/2024 N/A 43213-YGUOGQU NAIL, 6 OR MORE 02/25/2024 N/A Encounters Encounter Location Date Provider Diagnosis [facility] [address] 02/25/2024 Bruce Dorsey Atherosclerosis of stony river artery of both lower extremities, with unspecified presence of clinical manifestation I70.203 ; Tinea unguium B35.1 ; Pain in right toe(s) M79.674 ; Pain in left toe(s) M79.675 and Ingrown nail L60.0 [facility] [address] 05/05/2024 Bruce Dorsey Atherosclerosis of stony river artery of both lower extremities, with unspecified presence of clinical manifestation I70.203 ; Tinea unguium B35.1 ; Pain in right toe(s) M79.674 and Pain in left toe(s) M79.[address] [facility] [address] 05/05/2024 Bruce Dorsey [facility] [address] 07/29/2024 Bruce Dorsey [facility] [address] 08/11/2024 Bruce Dorsey Assessments Encounter Date Diagnosis (ICD Code) Assessment Notes Treatment Notes Treatment Clinical Notes Section Notes 02/25/2024 Tinea unguium (ICD-10 - B35.1) 02/25/2024 Atherosclerosis of [place] river artery of both lower extremities, with unspecified presence of clinical manifestation (ICD-10 - I70.203) 05/05/2024 Tinea unguium (ICD-10 - B35.1) 05/05/2024 Atherosclerosis of stony river artery of both lower extremities, with unspecified [...] X ray : Foot, right 3V 12/28/2022 59969-UMHMTZI NAIL, 6 OR MORE 02/05/2023 23990-GAVPNWH NAIL, 6 OR MORE 11/13/2022 20613-RZOUVFW NAIL, 6 OR MORE 04/16/2023 07605-PCPTRKJ NAIL, 6 OR MORE 07/02/2023 22436-LNMWHVA NAIL, 6 OR MORE 09/20/2023 72706-YBSHBWG NAIL, 6 OR MORE 12/03/2023 99646-SCEVSNV NAIL, 6 OR MORE 02/25/2024 26711-DVFYRIS NAIL, 6 OR MORE 05/05/2024 84760-BNVODXG NAIL, 6 OR MORE 10/16/2011 28126-AZQMANS NAIL, 6 OR MORE 01/15/2012 96180-NUFOKCP NAIL, 6 OR MORE 04/22/2012 28178-FTSXZPR NAIL, 6 OR MORE 07/22/2012 95281-WUPMLXB NAIL, 6 OR MORE 10/07/2012 42864-KMBQBKQ NAIL, 6 OR MORE 12/30/2012 34779-EVGAOUS NAIL, 6 OR MORE 03/31/2013 71774-IVJCSUD NAIL, 6 OR MORE 06/30/2013 31096-KSXRMIR NAIL, 6 OR MORE 10/06/2013 01733-LZGVXMU NAIL, 6 OR MORE 01/05/2014 52082-KUNYKAT NAIL, 6 OR MORE 07/06/2014 70110-CTSSBXZ NAIL, 6 OR MORE 10/26/2014 61409-HOMVBUW NAIL, 6 OR MORE 01/04/2015 58852-FODYSAJ NAIL, 6 OR MORE 04/05/2015 23150-MYLPKNN NAIL, 6 OR MORE 06/14/2015 30602-RTYFFQM NAIL, 6 OR MORE 04/02/2014 45846-UYPRMEP NAIL, 6 OR MORE 09/06/2015 23643-LFYGAPR NAIL, 6 OR MORE 12/02/2015 84230-CJXRUHF NAIL, 6 OR MORE 02/10/2016 20855-XBHINHR NAIL, 6 OR MORE 04/13/2016 28153-XMZLJUS NAIL, 6 OR MORE 06/22/2016 34128-DMBHAYW NAIL, 6 OR MORE 09/04/2016 89504-NYFAIJT NAIL, 6 OR MORE 11/16/2016 19404-BXPASEH NAIL, 6 OR MORE 01/29/2017 01643-RVUKJDR NAIL, 6 OR MORE 04/12/2017 94931-CXWYOSP NAIL, 6 OR MORE 06/25/2017 47190-PHHZTVV NAIL, 6 OR MORE 09/03/2017 42224-WHRQFWU NAIL, 6 OR MORE 11/08/2017 61955-RTAYIGP NAIL, 6 OR MORE 01/10/2018 05397-UQFFYDQ NAIL, 6 OR MORE 03/25/2018 34213-MCBCZXM NAIL, 6 OR MORE 05/27/2018 18734-QUYVUJE NAIL, 6 OR MORE 09/09/2018 02062-IDCQHJW NAIL, 6 OR MORE 12/05/2018 25271-TLCDYJX NAIL, 6 OR MORE 02/24/2019 17694-UATKHMP NAIL, 6 OR MORE 05/29/2019 95299-UQKIOIS NAIL, 6 OR MORE 08/04/2019 34957-NNTLSCP NAIL, 6 OR MORE 11/10/2019 88616-SUBKYFI NAIL, 6 OR MORE 02/02/2020 68035-OOGLWTM NAIL, 6 OR MORE 04/12/2020 03446-EUCFQIR NAIL, 6 OR MORE 06/24/2020 90145-IAYSTHY NAIL, 6 OR MORE 09/13/2020 02785-HWGZKSI NAIL, 6 OR MORE 12/20/2020 08269-UJEMMPA NAIL, 6 OR MORE 02/28/2021 05120-SVOORGS NAIL, 6 OR MORE 05/16/2021 12178-GBTUAWY NAIL, 6 OR MORE 09/15/2021 51695-IECBGDC NAIL, 6 OR MORE 11/17/2021 13578-VGNNQJF NAIL, 6 OR MORE 02/02/2022 81967-ZRCKSRW NAIL, 6 OR MORE 04/24/2022 89867-NAXXAFZ NAIL, 6 OR MORE 07/06/2022 47873-BDDPRJY NAIL, 6 OR MORE 09/11/2022 83563-Xkgkyflu Plate 06/01/2022 47173-Dramlplb Plate 09/11/2022 09173-Nztuddou Plate 04/24/2022 13206-Fwuiucry Plate 02/02/2022 35876-Rrbiqfuc Plate 11/17/2021 04396-Bdmeosyx Plate 09/15/2021 28983-Bjeabrum Plate 05/16/2021 19684-Nbagmstr Plate 02/28/2021 89938-Akvbqrcs Plate 12/20/2020 28998-Hywfinwv Plate 09/13/2020 07829-Vwexrjet Plate 06/24/2020 24283-Szrijqae Plate 10/07/2012 59497-Rhntbixq Plate 04/12/2020 48078-Pwoqqmzx Plate 02/02/2020 24238-Yuctwegu Plate 11/10/2019 38500-Aehdfois Plate 12/05/2018 15321-Uctkqzxy Plate 09/09/2018 14128-Wjqotkhm Plate 05/27/2018 08891-Qmidhkyo Plate 01/10/2018 54639-Lzmsrhpz Plate 04/12/2017 52920-Ydtyhqls Plate 09/04/2016 56775-Tnztnjum Plate 09/06/2015 34164-Wossadfx Plate 04/02/2014 52072-Eqmopirt Plate 06/14/2015 97515-Xojepkkx Plate 04/05/2015 89967-Apwwagpb Plate 01/04/2015 88752-Vbbabaym Plate 10/26/2014 00979-Rybmlrzt Plate 07/06/2014 01311-Dbhlsyny Plate 06/30/2013 33202-Iogqahxa Plate 01/15/2012 78422-Mtvskwdc Plate 02/25/2024 03253-Ypievemc Plate 12/03/2023 60759-Lczvaich Plate 07/02/2023 80246-Wbzwcxyk Plate 04/16/2023 64668-Wbnhtzqx Plate 11/13/2022 96221-Ytehgwsc Plate 02/05/2023 54731-Ewpidyui Plate Each Additional 10/2014 46632-Wwuzodfm Plate Each Additional 07/2015 40734-Jmhujqwr Plate Each Additional 06/2015 27974-Mtyounrs Plate Each Additional 88354-Tsgctpkc Plate Each Additional 07/2019 47054-Oqhbpgrd Plate Each Additional 63734-Kexvquoc Plate Each Additional 20007-Ndfrkwot Plate Each Additional 77242-Ymkcikyg Plate Each Additional 01/2021 88033-Inqvhhvr Plate Each Additional 59520-Rhhqahti Plate Each Additional 25288-Vkdalndm Plate Each Additional 34820-Zjwklplu Plate Each Additional 05/2022 76537 I&D ABSCESS- SIMPLE,SINGLE 014 79545 I&D ABSCESS- SIMPLE,SINGLE 012 12839 I&D ABSCESS- SIMPLE,SINGLE 023 38021-OPPH SKIN LESIONS, OVER 4 05/05/20 24 32024-YIGL SKIN LESIONS, OVER 4 02/06/20 23 45098-NHNB SKIN LESIONS, OVER 4 11/14/19 23 29160-ISDB SKIN LESIONS, OVER 4 04/16/20 23 93320-VTKF SKIN LESIONS, OVER 4 07/02/20 23 07260-YFGQ SKIN LESIONS, OVER 4 09/20/19 24 30609-YXYB SKIN LESIONS, OVER 4 12/03/19 24 78228-EZTB SKIN LESIONS, OVER 4 02/25/20 24 39962-BREC SKIN LESIONS, OVER 4 09/04/19 17 40850-IYQW SKIN LESIONS, OVER 4 11/17/19 17 43814-DPBZ SKIN LESIONS, OVER 4 01/30/20 17 64110-WBRC SKIN LESIONS, OVER 4 06/22/20 16 50382-OLVH SKIN LESIONS, OVER 4 04/13/20 16 03717-RKLK SKIN LESIONS, OVER 4 04/12/20 63861-QGDN SKIN LESIONS, OVER 4 06/25/20 17 95790-VUSW SKIN LESIONS, OVER 4 11/09/19 18 13957-LVCD SKIN LESIONS, OVER 4 09/03/19 18 09787-TQOF SKIN LESIONS, OVER 4 02/03/20 95966-SBUS SKIN LESIONS, OVER 4 11/18/19 07395-BRLR SKIN LESIONS, OVER 4 04/24/20 07655-MOLQ SKIN LESIONS, OVER 4 07/06/20 42337-MQKA SKIN LESIONS, OVER 4 09/11/19 23 87827-NHID SKIN LESIONS, OVER 4 09/15/19 54984-TJYI SKIN LESIONS, OVER 4 05/16/20 19738-MIYX SKIN LESIONS, OVER 4 02/29/20 80480-GFRT SKIN LESIONS, OVER 4 12/21/19 49375-EGLY SKIN LESIONS, OVER 4 09/13/19 28893-DRSU SKIN LESIONS, OVER 4 06/24/20 20 02947-WIQI SKIN LESIONS, OVER 4 11/10/19 52981-CQJO SKIN LESIONS, OVER 4 08/04/20 02975-XQCR SKIN LESIONS, OVER 4 02/02/20 16906-OSUQ SKIN LESIONS, OVER 4 04/12/20 91365-CCZX SKIN LESIONS, OVER 4 12/06/19 79323-JNJM SKIN LESIONS, OVER 4 05/29/20 58481-HDPT SKIN LESIONS, OVER 4 02/25/20 95586-DCIX SKIN LESIONS, OVER 4 01/11/20 18 01683-RFMH SKIN LESIONS, OVER 4 03/25/20 18 15725-YUTV SKIN LESIONS, OVER 4 05/27/20 18 75185-OLVF SKIN LESIONS, OVER 4 09/09/19 19 91406-MVJX SKIN LESIONS, 2 TO 4 06/14/20 15 41305-LBGS SKIN LESIONS, 2 TO 4 04/05/20 15 77260-NDMV SKIN LESIONS, 2 TO 4 04/02/20 14 50990-UWMZ SKIN LESIONS, 2 TO 4 09/06/19 16 96632-EIXF SKIN LESIONS, 2 TO 4 02/10/20 16 67254-YPQH SKIN LESIONS, 2 TO 4 12/02/19 16 72279-DEDU SKIN LESIONS, 2 TO 4 01/15/20 12 35030-KRGS SKIN LESIONS, 2 TO 4 07/22/20 12 35251-UHBP SKIN LESIONS, 2 TO 4 04/22/20 12 02947-UOFM SKIN LESIONS, 2 TO 4 06/30/20 13 72331-ATSA SKIN LESIONS, 2 TO 4 03/31/20 13 91639-GUCF SKIN LESIONS, 2 TO 4 12/31/19 13 82297-RBAC SKIN LESIONS, 2 TO 4 10/07/19 13 50420-ZUXK SKIN LESIONS, 2 TO 4 07/06/20 14 13957-XUXM SKIN LESIONS, 2 TO 4 01/06/20 14 18449-PEBG SKIN LESIONS, 2 TO 4 10/06/19 14 27081-IMIK SKIN LESIONS, 2 TO 4 01/05/20 15 06052-COSF SKIN LESIONS, 2 TO 4 10/27/19 15 Insurance Providers Payer Name Payer Address Payer Phone Subscriber Number Group Number Insured Name Patient Relationship to Insured Coverage Start Date Coverage End Date Medicare National [employer]t [employer] [address] [facility] [place] [address] [id number] Jocelyn Mejia Self - patient is the insured 2 [employer] for 60mo [address] [place] [id number] Brandon Mejia Spouse - patient is the spouse of the insured Medical (General) History Medical History History ICD Code Arthritis back pain Cholesterol Hiatal hernia osteoporosis reflux hypertension ASO/PVD Arthritis - Degenerative Surgical History Surgery Date(Month/Year) Hospitalization History Reason Date(Month/Year) [facility] Acid reflux 09/08-09/12 [facility]- Flu 10/15
== END 2024-12-23 14:29 | disposition home or self-care (01) ==
LOC: HO.HUSH 13:21
PROVIDERS: PCP Internal Medicine; Visit Provider Nurse Practitioner Family
DX: N28.1 Cyst of kidney, acquired (principal); N39.0 Urinary tract infection, site not specified; Z13.9 Encounter for screening, unspecified
CPT/HCPCS: 99214; G2211

== ENCOUNTER → 2024-12-23 13:20 | Outpatient (BNVA) | payer MEDICARE, OTHER, MEDICAID, SELFPAY | PROVIDERS: PCP Internal Medicine; Visit Provider Nurse Practitioner Family | DX: N28.1 Cyst of kidney, acquired (principal); N39.0 Urinary tract infection, site not specified | CPT/HCPCS: 81003; 99212 ==

== ENCOUNTER 2025-01-11 10:12 | Outpatient (AMB) | payer MEDICARE, OTHER, SELFPAY ==
--- NOTE | 2025-01-11 10:17 | A.OFFVIS_ITS ---
Vital Signs 01/11/25 10:19 Height 5 ft 2 in Weight 114 lb 10.246 oz BMI 21.0 BP 126/69 Blood Pressure Location Lt brachial Position Sitting Pulse 72 Intake Visit Reasons: 2m Intake Note: Jocelyn presents in the office as a 2 month follow up. CC: States she was told there is puss around her kidneys. Is having issues with swollen feet. She is due for her injections but cannot get them due to being on the antibiotics. Allergies No Known Allergies Allergy (Verified 01/11/25 10:20) HPI Comments Details: 89 y.o F with PMH of MICHAEL, osteoporosis, GERD, HTN, who is here for unintentional weight loss. Accompanied by her friend Jenn. Was in [facility] in sep - reports hospitalization was in fact NOT for diarrhea. She was constipated for almost 5 days before she had a large BM in the rehab. With this she had also reported unintentional weight loss. 10lbs since Jun 2024. Reports good appetite but with early satiety. Grazes through the day. In terms of constipation, this is resolved. Since discharge from rehab, pt has been taking colace and increased hydration and BMs are now a bit more regular with less straining. Does not have feeling of incomplete evacuation. Last colo almost 15 years ago. Rectal hyperplastic polyp. CT chest/abd/pel done inpatient with question of possible neoplastic mass on LEFT kidney. Will be seeing Urology later this month but tells me this is a chronic finding. Pt also noted to have chronic macrocytic anemia on labs, no iron deficiency 02/2024 labs. 01/11/25: Here for follow up. Here with her friend Maria G. Was hospitalized in November - found to have infectious cyst on L kidney. Now established with urology and on chronic Abx. Was seen by GI (Dr Vega) for nausea and diarrhea and L sided colitis on CT. Pt reports sx improved after starting Abx and pus aspiration of L renal cyst. Now without any abd pain, nausea, or diarrhea. Est with urology. Was also seen by Heme (Dr Rodriguez) for macrocytic anemia. Follow up pending. 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 Mother Arthritis Son No problems noted. Daughter No problems noted. Brother No problems noted. Social History Household Members: None Housing: Apartment Do you presently have visiting nurse or other home services: No Alcohol intake: former Patient Tobacco Use Status: Never used Tobacco Tobacco use type: Cigarette e-Cigarette/Vaping Use: Never Used Second Hand Smoke Exposure: Yes Advance Directives Date on File: 03/11/24 service: No Current occupational status: retired Current occupation: Retired Cognitive needs: No Hearing needs: No Vision needs: Yes Review of Systems Const All systems reviewed & are unremarkable except as noted in HPI and below Physical Exam Vital Signs: Last Vital Signs Pulse 72 01/11/25 10:19 BP 126/69 01/11/25 10:19 BMI result Body Mass Index 21.0 Frail elderly female NAD Ambulates with a cane No overt resp distress +3 pedal edema Assessment & Plan Assessment & Plan (1) Macrocytic anemia: Code(s): D53.9 - Nutritional anemia, unspecified Category: Medical (2) Pedal edema: Code(s): R60.0 - Localized edema Category: Medical Plan Reviewed with the pt that anemia is non iron deficiency as previously reviewed. Should follow up with hematology. Will get updated labs. Pt hesitant to undergo colonography since her nausea and appetite has improved. She was also initially hesitant to undergo flexible sigmoidoscopy for luminal eval of L sided colitis noted on CT however agrees since will not need to drink any prep. Most likely was infectious. Of note significant pedal edema and varicose veins noted on b/l LE. Hx of LBBB with normal EF 2022. Will repeat echo. Plan: - CBC and Iron panel - Will request follow up with Dr Rodriguez if no LEVON - Flex sig to be booked - pt advised on CLD 1 day before and 1 enema at home, 1 enema to be given in pre-op - Echo - Advised on compression stockings Follow up after flex sig Orders: Orders Ferritin Today D53.9 - Nutritional anemia, unspecified Complete Blood Count no Diff Today D53.9 - Nutritional anemia, unspecified IRON PROFILE Today D53.9 - Nutritional anemia, unspecified CA echo transthoracic complete Today R60.0 - Localized edema Medications: New sodium phosphates 19-7 gram/118 mL (Fleet Enema) 118 mL HI ONCE 133 mL 0RF Coding Level of Care Code Est Pt Level 4 (66503) Diagnoses Macrocytic anemia D53.9 Pedal edema R60.0
[2025-01-11 10:19] VITALS: BP 126/69; PULSE 72; BMI 21.0
--- OUTSIDE RECORDS SUMMARY | 2025-01-11 10:46 | XMS_ITS ---
Author Organization [facility] Address [address] [place] [address] Care Team Providers Care Merry Go Round Attendant Name Role Phone Heather CONNORS, Magy Todd Primary Care Provider Un available Bruce Dorsey Unavailable [phone] Encounters Encounter Location Date Provider Diagnosis [address] [address] 07/31/2024 Bruce Dorsey Plan Of Treatment No Information Progress Notes * JACOBS, Jocelyn CONNORSOB: 937 (89 yo F)Acc No.[id number]:07/31/2024 Progress Note Patient:Jocelyn FORD Provider:?Bruce Dorsey DPM :1935???Age:88 Y???Sex:Female D ate:07/31/2024 Address:[address] [place] [address] [address], [id number] Pcp:Louie Anderson Subjective: * Chief Complaints: * ??? * Medical History:? Objective: * Vitals:? Assessment: Plan: * Treatment: * Images: * The named appointment provid er may or may not be the originator of this progress note, and it is not deemed complete until electronically signed by the appointment provider. Sign off status: Pending * Provider:Mackenzie Dorsey DPM Date:?2023 Generated for Ronaki gerhard/Kinjal/eTransmitting on:?01/11/2025 10:46 AM EDT
--- OUTSIDE RECORDS SUMMARY | 2025-01-11 10:46 | XMS_ITS ---
Author Organization [facility] Address [address] [place] [address] Care Team Providers Care Cost Controller Name Role Phone Heather CONNORS, Magy Todd Primary Care Provider Un available Bruce Dorsey Unavailable [phone] Encounters Encounter Location Date Provider Diagnosis [address] [address] 08/11/2024 Bruce Dorsey Plan Of Treatment No Information Progress Notes * ARLENE Jocelyn CONNORSOB: 937 (89 yo F)Acc No.[id number]:08/11/2024 Progress Note Patient:Jocelyn FORD Provider:?Bruce Dorsey DPM :1935???Age:88 Y???Sex:Female D ate:08/11/2024 Address:[address] [place] [address] [address] [id number] Pcp:Louie Anderson Subjective: * Chief Complaints: * [...]
--- OUTSIDE RECORDS SUMMARY | 2025-01-11 10:46 | XMS_ITS ---
Author Organization [facility] Address [address] [place] [address] Care Team Providers Care Catering Coordinator Name Role Phone Heather CONNORS, Magy Todd Primary Care Provider Un available Bruce Dorsey Unavailable [phone] REASON FOR VISIT no show Encounters Encounter Location Date Provider Diagnosis [address] [address] 08/11/2024 Bruce Dorsey Plan Of Treatment No Information Progress Notes * Jocelyn JACOBS MDOB: [birth year] (88 yo F)Acc No.[id number]:08/11/2024 Patient:?ARLENE Jocelyn Palma :1935???Age:88 Y???Sex:Female Address:[address] [facility] [address] [place], [address] * true * Date:? Generated for Printi ng/Faaparnag/eTransmitting on:?01/11/2025 10:46 AM EDT
--- OUTSIDE RECORDS SUMMARY | 2025-01-11 10:46 | XMS_ITS | Patient Health Record ---
Author Organization [facility] Address [address] [place] [address] Care Team Providers Care Registered Nurse Float Pool Name Role Phone Heather CONNORS, Magy Primary Care Provider Brian Tam Unavailable [phone] SALOMÓN CHAMPION Unavailable Unavailable Allergies Allergen (clinical [...] Problem Status W/U Status Risk Notes Problem 60448918 Cough (R05) Active confirmed Problem 241690811 Gastroesophageal reflux disease with esophagitis (K21.0) Active confirmed Problem 32342250 Erosive esophagi tis (K22.10) Active confirmed Problem 72410388 Constipation, unspecified constipation type (K59.00) Active confirmed Problem 20829136 Esophagitis (K20.9) Active confirmed Problem 75568796 Lower abdominal pain (R10.30) Active confirmed Plan Of Treatment Pending Test Test Name Order Date XR CHEST 2 VIEW PA & LAT 04/25/2021 Future Test Test Name Order Date UPPER GI ENDOSCOPY 11/13/2016 Insurance Providers Payer Name Payer Address Payer Phone Subscriber Number Group Number Insured Name Patient Relationship to Insured Coverage Start Date Coverage End Date MEDICARE OF [place] [address] [place] [address] [phone] [id number] JACOBS , HITESH Self - patient is the insured [employer] [address] [place] [address] [id number] FAHAD JACOBSIS Self - patient is the [...] Tremors Elevated cholesterol Degenerative joint disease Denies NE,DM,CVA,Lung disease,renal dise ase Surgical History Surgery Date(Month/Year) Cataracts/lens implants 10/2006
--- OUTSIDE RECORDS SUMMARY | 2025-01-11 10:47 | XMS_ITS | Patient Health Record ---
[facility] Organization [facility] Address [address] [place] [address] Care Team Providers Care Line Department Supervisor Name Role Phone Heather CONNORS, Magy Todd Primary Care Provider Un available Bruce Dorsey Unavailable [phone] Allergies Allergen (clinical drug ingredient) Drug/Non Drug [...] Problem Status W/U Status Risk Notes Problem 66308457 Age-related osteoporosis without current pathological fracture (M81.0) Active confirmed Problem [id number] Atherosclerosis of [place] artery of both lower extremities, with unspecified presence of clinical manifestation (I70.203) Active confirmed Vital Signs Blood pressure diastolic 70 mm Hg 05/05/2024 Height 5 ft 4 in in 05/05/2024 Blood pressure systolic 120 mm Hg 05/05/2024 Weight 135 lbs 05/05/2024 BMI 23.17 kg/m2 05/05/2024 Procedures Procedure Date Ordered Date Performed Result Body Sit e 93686-GQYMDUF NAIL, 6 OR MORE 02/25/2024 N/A 93607-Vbvrcpiv Plate 02/25/2024 N/A 17115-NSUB SKIN LESIONS, OVER 4 02/25/2024 N/A 55367-AGXVHDM NAIL, 6 OR MORE 05/05/2024 N/A 75383-CVWX SKIN LESIONS, OVER 4 05/05/2024 N/A Encounters Encounter Location Date Provider Diagnosis [facility] [address] 02/25/2024 Bruce Dorsey Atherosclerosis of [place] artery of both lower extremities, with unspecified presence of clinical manifestation I70.203 ; Tinea unguium B35.1 ; Pain in right toe(s) M79.674 ; Pain in left toe(s) M79.675 and Ingrown nail L60.[address] [facility] [address] 05/05/2024 Bruce Dorsey Atherosclerosis of [place] artery of both lower extremities, with unspecified presence of clinical manifestation I70.203 ; Tinea unguium B35.1 ; Pain in right toe(s) M79.674 and Pain in left toe(s) M79.[address] [facility] [address] 05/05/2024 [facility] [address] 07/29/2024 [facility] [address] 08/11/2024 Bruce Dorsey Assessments Encounter Date Diagnosis (ICD Code) Assessment Notes Treatment Notes Treatment Clinical Notes Section Notes 02/25/2024 Tinea unguium (ICD-10 - B35.1) 02/25/2024 Atherosclerosis of [place] artery of both lower extremities, with unspecified presence of clinical manifestation (ICD-10 - I70.203) 05/05/2024 Tinea unguium (ICD-10 - B35.1) 05/05/2024 Atherosclerosis of [place] artery of both lower extremities, with unspecified [...] X ray : Foot, right 3V 12/28/2022 49193-YWMINLS NAIL, 6 OR MORE 02/05/2023 82624-SJQOMIP NAIL, 6 OR MORE 11/13/2022 36944-RJKGFXN NAIL, 6 OR MORE 04/16/2023 21156-QISZZMW NAIL, 6 OR MORE 07/02/2023 41274-IPNYGRQ NAIL, 6 OR MORE 09/20/2023 05906-QZSWNHR NAIL, 6 OR MORE 12/03/2023 92971-RNXMUUU NAIL, 6 OR MORE 02/25/2024 51421-BXETKYX NAIL, 6 OR MORE 05/05/2024 28819-BZHWNTS NAIL, 6 OR MORE 10/16/2011 03748-HUZSCBZ NAIL, 6 OR MORE 01/15/2012 66925-OYGDNIY NAIL, 6 OR MORE 04/22/2012 96870-FWJFIFU NAIL, 6 OR MORE 07/22/2012 56042-QRQFLTZ NAIL, 6 OR MORE 10/07/2012 26250-TGBGJUD NAIL, 6 OR MORE 12/30/2012 36615-UFNZKVX NAIL, 6 OR MORE 03/31/2013 19708-GMEBFKN NAIL, 6 OR MORE 06/30/2013 28157-MCZOAKW NAIL, 6 OR MORE 10/06/2013 42962-NDFHCVQ NAIL, 6 OR MORE 01/05/2014 62948-MGYFCDS NAIL, 6 OR MORE 07/06/2014 20705-MUEZZML NAIL, 6 OR MORE 10/26/2014 01024-OITCVSE NAIL, 6 OR MORE 01/04/2015 18681-PBBAYIM NAIL, 6 OR MORE 04/05/2015 50575-UIFNWXE NAIL, 6 OR MORE 06/14/2015 00888-QJJDUYP NAIL, 6 OR MORE 04/02/2014 96397-PIBVCHS NAIL, 6 OR MORE 09/06/2015 53760-NJSOSQW NAIL, 6 OR MORE 12/02/2015 79028-JRXPMVJ NAIL, 6 OR MORE 02/10/2016 64501-HFAEEBL NAIL, 6 OR MORE 04/13/2016 14132-NJWQKHF NAIL, 6 OR MORE 06/22/2016 54629-ABCDAEK NAIL, 6 OR MORE 09/04/2016 90328-NQLMEZK NAIL, 6 OR MORE 11/16/2016 48970-ZFYEDIE NAIL, 6 OR MORE 01/29/2017 62662-ODZWCBT NAIL, 6 OR MORE 04/12/2017 14408-WJOYOBS NAIL, 6 OR MORE 06/25/2017 71168-MLIWUEB NAIL, 6 OR MORE 09/03/2017 17898-NZBCKML NAIL, 6 OR MORE 11/08/2017 76881-QKQGWMT NAIL, 6 OR MORE 01/10/2018 37942-HQTBHGI NAIL, 6 OR MORE 03/25/2018 14463-LDZSHYA NAIL, 6 OR MORE 05/27/2018 33521-FUVFGQO NAIL, 6 OR MORE 09/09/2018 50227-QRAKZPF NAIL, 6 OR MORE 12/05/2018 72473-PINWPGH NAIL, 6 OR MORE 02/24/2019 83422-GPTQAHA NAIL, 6 OR MORE 05/29/2019 68251-XDOPRLE NAIL, 6 OR MORE 08/04/2019 30739-MHARBTR NAIL, 6 OR MORE 11/10/2019 66021-HXVGTYP NAIL, 6 OR MORE 02/02/2020 15773-PPMZUIH NAIL, 6 OR MORE 04/12/2020 25602-OQOFHDJ NAIL, 6 OR MORE 06/24/2020 90075-KYPSHVH NAIL, 6 OR MORE 09/13/2020 52443-FOCUSTH NAIL, 6 OR MORE 12/20/2020 99083-IOSITML NAIL, 6 OR MORE 02/28/2021 80290-XMIKYPM NAIL, 6 OR MORE 05/16/2021 85374-XCMOZUK NAIL, 6 OR MORE 09/15/2021 63001-HCSFQRS NAIL, 6 OR MORE 11/17/2021 38775-BGIZWCN NAIL, 6 OR MORE 02/02/2022 52302-YFHIOPO NAIL, 6 OR MORE 04/24/2022 77702-VKKOJQC NAIL, 6 OR MORE 07/06/2022 39092-CBBLVBC NAIL, 6 OR MORE 09/11/2022 80652-Rghgfrru Plate 06/01/2022 09295-Hqkpftze Plate 09/11/2022 29125-Krubwkyu Plate 04/24/2022 47424-Egkilhxq Plate 02/02/2022 96237-Vvylfayl Plate 11/17/2021 29128-Ljamfini Plate 09/15/2021 87675-Sjbzotbx Plate 05/16/2021 01544-Ptrgywlb Plate 02/28/2021 91565-Unveporo Plate 12/20/2020 57558-Habsrnbv Plate 09/13/2020 24316-Hegsgtxe Plate 06/24/2020 08358-Wkjkmvwv Plate 10/07/2012 75634-Vxmmygtf Plate 04/12/2020 12566-Qgdilroj Plate 02/02/2020 43381-Kecskmit Plate 11/10/2019 88058-Gfbffttp Plate 12/05/2018 03420-Lfnnagvs Plate 09/09/2018 43807-Lnhjxqop Plate 05/27/2018 36006-Bmiezsnv Plate 01/10/2018 96056-Tnmsowbo Plate 04/12/2017 92787-Bmzchats Plate 09/04/2016 59061-Dzzcfcwe Plate 09/06/2015 23811-Tfrfyldi Plate 04/02/2014 78330-Cupyiykb Plate 06/14/2015 56752-Etvybehd Plate 04/05/2015 53428-Tklvguzq Plate 01/04/2015 43680-Nzdgagra Plate 10/26/2014 61738-Jegedwqc Plate 07/06/2014 50420-Crlthmya Plate 06/30/2013 40127-Hpiujzuu Plate 01/15/2012 44817-Jtmdfuiw Plate 02/25/2024 68296-Rastukfu Plate 12/03/2023 35373-Ornaifbw Plate 07/02/2023 94300-Bgvuapgk Plate 04/16/2023 03634-Nmfzgccn Plate 11/13/2022 22129-Nislsvcz Plate 02/05/2023 26223-Lkqbvkxf Plate Each Additional 10/2014 18836-Ysvliwtp Plate Each Additional 07/2015 22781-Lgpetcoz Plate Each Additional 06/2015 98292-Zoiekekw Plate Each Additional 76520-Amrdsfvv Plate Each Additional 07/2019 92108-Ghitaazg Plate Each Additional 15116-Zctwntfw Plate Each Additional 01685-Mahjigis Plate Each Additional 31490-Ibndggec Plate Each Additional 01/2021 89388-Kkhuavto Plate Each Additional 70444-Dhwcvxgs Plate Each Additional 22353-Xwttgjfn Plate Each Additional 32250-Pjhpltak Plate Each Additional 05/2022 88631 I&D ABSCESS- SIMPLE,SINGLE 014 81373 I&D ABSCESS- SIMPLE,SINGLE 012 39671 I&D ABSCESS- SIMPLE,SINGLE 023 09897-XYYO SKIN LESIONS, OVER 4 05/05/20 24 92016-QRSD SKIN LESIONS, OVER 4 02/06/20 23 92776-MESE SKIN LESIONS, OVER 4 11/14/19 23 71056-TIRD SKIN LESIONS, OVER 4 04/16/20 23 24215-BBFM SKIN LESIONS, OVER 4 07/02/20 23 51160-BPII SKIN LESIONS, OVER 4 09/20/19 24 57142-YFYR SKIN LESIONS, OVER 4 12/03/19 24 27299-GMPW SKIN LESIONS, OVER 4 02/25/20 24 22134-YXFF SKIN LESIONS, OVER 4 09/04/19 17 63216-NUEL SKIN LESIONS, OVER 4 11/17/19 17 79950-UDUR SKIN LESIONS, OVER 4 01/30/20 17 68622-TYUR SKIN LESIONS, OVER 4 06/22/20 16 95775-PUHM SKIN LESIONS, OVER 4 04/13/20 16 19486-LZHF SKIN LESIONS, OVER 4 04/12/20 54721-RAFE SKIN LESIONS, OVER 4 06/25/20 17 51280-USCC SKIN LESIONS, OVER 4 11/09/19 18 39386-UEWZ SKIN LESIONS, OVER 4 09/03/19 18 36796-WTVG SKIN LESIONS, OVER 4 02/03/20 77441-VNZX SKIN LESIONS, OVER 4 11/18/19 81368-SPVP SKIN LESIONS, OVER 4 04/24/20 39685-PZIY SKIN LESIONS, OVER 4 07/06/20 96495-MIBP SKIN LESIONS, OVER 4 09/11/19 23 40527-MXUM SKIN LESIONS, OVER 4 09/15/19 18295-KIAP SKIN LESIONS, OVER 4 05/16/20 83179-CMES SKIN LESIONS, OVER 4 02/29/20 14075-HDQW SKIN LESIONS, OVER 4 12/21/19 09736-YJOH SKIN LESIONS, OVER 4 09/13/19 76069-WPFQ SKIN LESIONS, OVER 4 06/24/20 20 34944-WHIH SKIN LESIONS, OVER 4 11/10/19 86406-LMYD SKIN LESIONS, OVER 4 08/04/20 89746-VAUJ SKIN LESIONS, OVER 4 02/02/20 65725-RNPD SKIN LESIONS, OVER 4 04/12/20 27334-YYQK SKIN LESIONS, OVER 4 12/06/19 99765-TUNX SKIN LESIONS, OVER 4 05/29/20 58613-CECY SKIN LESIONS, OVER 4 02/25/20 16637-FSPO SKIN LESIONS, OVER 4 01/11/20 18 27386-HUYM SKIN LESIONS, OVER 4 03/25/20 18 97928-GCSJ SKIN LESIONS, OVER 4 05/27/20 18 32606-WRWL SKIN LESIONS, OVER 4 09/09/19 19 82095-HZJA SKIN LESIONS, 2 TO 4 06/14/20 15 73330-EVYT SKIN LESIONS, 2 TO 4 04/05/20 15 00723-HJDI SKIN LESIONS, 2 TO 4 04/02/20 14 65093-ZDDA SKIN LESIONS, 2 TO 4 09/06/19 16 28017-EALO SKIN LESIONS, 2 TO 4 02/10/20 16 06282-VBNA SKIN LESIONS, 2 TO 4 12/02/19 16 76800-CVVZ SKIN LESIONS, 2 TO 4 01/15/20 12 82674-PYAW SKIN LESIONS, 2 TO 4 07/22/20 12 80500-QKFB SKIN LESIONS, 2 TO 4 04/22/20 12 67527-KGMB SKIN LESIONS, 2 TO 4 06/30/20 13 03621-REQT SKIN LESIONS, 2 TO 4 03/31/20 13 42644-OBBD SKIN LESIONS, 2 TO 4 12/31/19 13 88603-NTMH SKIN LESIONS, 2 TO 4 10/07/19 13 22541-DUON SKIN LESIONS, 2 TO 4 07/06/20 14 28913-QXCM SKIN LESIONS, 2 TO 4 01/06/20 14 20416-EAUT SKIN LESIONS, 2 TO 4 10/06/19 14 90414-PSEE SKIN LESIONS, 2 TO 4 01/05/20 15 81572-YLDM SKIN LESIONS, 2 TO 4 10/27/19 15 Insurance Providers Payer Name Payer Address Payer Phone Subscriber Number Group Number Insured Name Patient Relationship to Insured Coverage Start Date Coverage End Date Medicare National Govt Svcs Inc [address] [place] [address] [id number] Jocelyn Mejia Self - patient is the insured 2 [employer] [address] [place] [id number] [id number] Brandon Mejia Spouse - patient is the spouse of the insured Medical (General) History Medical History History ICD Code Arthritis back pain Cholesterol Hiatal hernia osteoporosis reflux hypertension ASO/PVD Arthritis - Degenerative Surgical History Surgery Date(Month/Year) Hospitalization History Reason Date(Month/Year) [facility] Acid reflux 09/08-09/12 [facility]- Flu 10/15
--- OUTSIDE RECORDS SUMMARY | 2025-01-11 10:47 | XMS_ITS | Continuity of Care Document ---
Author Name [facility] Organization [facility] Care Team Providers Care Outbound Telemarketer Name Role Phone [facility] Unavailable Unavailable Medications Combined list of outpatient medications from Department of Defense and Veterans Affairs facilities.Medications provided include 1) outpatient medications from the last 15 months, and 2) patient-reported medications. Medication Details Route Status Patient Instructions Prescription Expires Prescription Number Last Dispense Date Ordering Provider Order Date Order Qty Source BUSPIRONE HCL (buspirone HCl), 7.5 MG, TABLET, ORAL, [employer] 100 ea. BOTTLE Active [id number] 4 2023 90 Pharmac y Data Transac tion Service Facilit y CELECOXIB (celecoxib) , 200 MG, CAPSULE, ORAL, [employer]ACE[employer], 500 ea. BOTTLE Active [id number] 4 2023 90 Pharmac y Data Transac tion Service Facilit y LISINOPRIL (lisinopril ), 2.5 MG, TABLET, ORAL, EXELAN PHARMACE, 500 ea. BOTTLE Active [id number] 4 2023 90 Pharmac y Data Transac tion Service Facilit y OMEPRAZOLE (omeprazole ), 20 MG, CAPSULE CARLOS A HUERTA, [employer], 1000 ea. BOTTLE Active [id number] 4 2023 90 Pharmac y Data Transac tion Service Facilit y OMEPRAZOLE (omeprazole ), 20 MG, CAPSULE CARLOS A HUERTA, [employer], 1000 ea. BOTTLE Active [id number] 4 2023 90 Pharmac y Data Transac tion Service Facilit y PRIMIDONE (PRIMIDONE) , 50 MG, TABLET, ORAL, AV FAZAL, 500 ea. BOTTLE Cancele d [id number] 4 [id number] : 2023 0 Pharmac y Data Transac tion Service Facilit y Immunizations Combined list of available immunizations from the Department of Defense and Veterans Affairs facilities. Immunization Series Date Given Administered By Site Reaction Lot Number CVX Code Drug Supervisor Keymodule Assembly Status Comments Source COVID-19, mRNA, LNP-S, PF, 30 mcg/0.3 mL dose, susana-sucrose 2021 [email or web address] [place] (PFR) Not Given COVID-19, mRNA, LNP-S, PF, 30 mcg/0.3 mL dose, susana-sucr ose DoD COVID-19, mRNA, LNP-S, PF, 30 mcg/0.3 mL dose 2020 [email or web address] [place] (PFR) Not Given COVID-19, mRNA, LNP-S, [...]
== END 2025-01-11 10:58 | disposition home or self-care (01) ==
LOC: HO.HGI 10:13
PROVIDERS: PCP Internal Medicine; Visit Provider Internal Medicine
DX: D53.9 Nutritional anemia, unspecified (principal); R60.0 Localized edema
CPT/HCPCS: 99214

== ENCOUNTER 2025-01-11 10:12 | Outpatient (REF) | payer MEDICARE, OTHER, SELFPAY ==
--- OUTSIDE RECORDS SUMMARY | 2025-01-11 11:39 | XMS_ITS | Continuity of Care Document ---
Author Name [facility] Organization [facility] Care Team Providers Care Reproductive Surgeon Name Role Phone [facility] Unavailable Unavailable Medications Combined list of outpatient medications from Department of Defense and Veterans Affairs facilities.Medications provided include 1) outpatient medications from the last 15 months, and 2) patient-reported medications. Medication Details Route Status Patient Instructions Prescription Expires Prescription Number Last Dispense Date Ordering Provider Order Date Order Qty Source BUSPIRONE HCL (buspirone HCl), 7.5 MG, TABLET, ORAL, [employer] 100 ea. BOTTLE Active [id number] 2023 90 Pharmac y Data Transac tion Service Facilit y CELECOXIB (celecoxib) , 200 MG, CAPSULE, ORAL, [employer]ARM[employer]U, 500 ea. BOTTLE Active [id number] 4 2023 90 Pharmac y Data Transac tion Service Facilit y LISINOPRIL (lisinopril ), 2.5 MG, TABLET, ORAL, EXELAN PHARMACE, 500 ea. BOTTLE Active [id number] 4 2023 90 Pharmac y Data Transac tion Service Facilit y OMEPRAZOLE (omeprazole ), 20 MG, CAPSULE CARLOS A HUERTA, [employer], 1000 ea. BOTTLE Active [id number] 4 2023 90 Pharmac y Data Transac tion Service Facilit y OMEPRAZOLE (omeprazole ), 20 MG, CAPSULE CARLOS A HUERTA, [employer], 1000 ea. BOTTLE Active [id number] 4 2023 90 Pharmac y Data Transac tion Service Facilit y PRIMIDONE (PRIMIDONE) , 50 MG, TABLET, ORAL, AV FAZAL, 500 ea. BOTTLE Cancele d [id number] 4 [id number] : 2023 0 Pharmac y Data Transac tion Service Facilit y Immunizations Combined list of available immunizations from the Department of Defense and Veterans Affairs facilities. Immunization Series Date Given Administered By Site Reaction Lot Number CVX Code Drug Hand Or Machine Paster Status Comments Source COVID-19, mRNA, LNP-S, PF, 30 mcg/0.3 mL dose, susana-sucrose 2021 [employer] [place] (PFR) Not Given COVID-19, mRNA, LNP-S, PF, 30 mcg/0.3 mL dose, susana-sucr ose DoD COVID-19, mRNA, LNP-S, PF, 30 mcg/0.3 mL dose 2020 [employer] [place] (PFR) Not Given COVID-19, mRNA, LNP-S, [...]
[2025-01-11 11:47] LABS: Hematocrit 33.8 % (37.0-47.0); Hemoglobin 10.4 g/dl (12.0-16.0); Mean Corpuscular HGB Conc 30.8 g/dl (31.0-35.0); Mean Corpuscular Hemoglobin 31.9 pg (27.0-33.0); Mean Corpuscular Volume 103.7 fL (80.0-98.0); Mean Platelet Volume 10.6 fL (9.4-12.3); Platelet Count 287 X10*3/uL (160-400); Red Blood Count 3.26 X10*6/uL (4.20-5.50); Red Cell Distribution Width 13.6 % (11.0-16.0); White Blood Count 6.1 X10*3/uL (4.8-10.8)
[2025-01-11 12:20] LABS: Iron 62 mcg/dL (30-160); Percent Iron Saturation 26 % (15-50); Total Iron Binding Capacity 237 mcg/dL (228-428); Unsaturated Iron Binding 175 ug/dL
[2025-01-11 12:37] LABS: Ferritin 79 ng/mL (10-250)
[2025-01-13 23:33] LABS: TS Negative Control Passed; TS Panel A 0; TS Panel B 0; TS Positive Control Passed; TSpotTB Negative (Negative)
== END 2025-01-11 10:13 | disposition home or self-care (01) ==
LOC: HO.LAB 10:12
PROVIDERS: PCP Internal Medicine; Visit Provider Internal Medicine
DX: D53.9 Nutritional anemia, unspecified (principal); R63.4 Abnormal weight loss
CPT/HCPCS: 36415; 82728; 83540; 85027; 86481; 99212

== ENCOUNTER 2025-01-14 12:33 | Outpatient (AMB) | payer MEDICARE, OTHER, SELFPAY ==
--- OUTSIDE RECORDS SUMMARY | 2025-01-14 12:36 | XMS_ITS | Patient Health Record ---
Author Organization [facility] Address [address] [place] [address] Care Team Providers Care Boilermaker Mechanic Name Role Phone Heather CONNORS, Magy Primary Care Provider Brian Tam Unavailable [phone] SALOMÓN CHAMPION Unavailable Unavailable Allergies Allergen (clinical [...] Problem Status W/U Status Risk Notes Problem 09747086 Cough (R05) Active confirmed Problem 880244858 Gastroesophageal reflux disease with esophagitis (K21.0) Active confirmed Problem 50104406 Erosive esophagi tis (K22.10) Active confirmed Problem 47737577 Constipation, unspecified constipation type (K59.00) Active confirmed Problem 68771576 Esophagitis (K20.9) Active confirmed Problem 77925371 Lower abdominal pain (R10.30) Active confirmed Plan Of Treatment Pending Test Test Name Order Date XR CHEST 2 VIEW PA & LAT 04/25/2021 Future Test Test Name Order Date UPPER GI ENDOSCOPY 11/13/2016 Insurance Providers Payer Name Payer Address Payer Phone Subscriber Number Group Number Insured Name Patient Relationship to Insured Coverage Start Date Coverage End Date MEDICARE OF [place] [address] [place] [address] [id number] JACOBS , HITESH Self - patient is the insured [employer] [address] [place] [address] [phone] [id number] FAHAD JACOBSIS Self - patient is the [...] Tremors Elevated cholesterol Degenerative joint disease Denies DC,DM,CVA,Lung disease,renal dise ase Surgical History Surgery Date(Month/Year) Cataracts/lens implants 10/2006
--- OUTSIDE RECORDS SUMMARY | 2025-01-14 12:36 | XMS_ITS ---
Author Organization [facility] Address [address] [place] [address] Care Team Providers Care Blueprint Developer Name Role Phone Heather CONNORS, Magy Todd Primary Care Provider Un available Bruce Dorsey Unavailable [phone] Encounters Encounter Location Date Provider Diagnosis [address] [address] 08/11/2024 Bruce Dorsey Plan Of Treatment No Information Progress Notes * JACOBS, Jocelyn CONNORSOB: [birth year] (89 yo F)Acc No.[id number]:08/11/2024 Progress Note Patient:Jocelyn FORD Provider:?Bruce Dorsey DPM :1935???Age:88 Y???Sex:Female D ate:08/11/2024 Address:[address] [place] [address] [address], [id number] Pcp:Louie Anderson Subjective: * Chief Complaints: * ??? * Medical History:? Objective: * Vitals:? Assessment: Plan: * Treatment: * Images: * The named appointment provid er may or may not be the originator of this progress note, and it is not deemed complete until electronically signed by the appointment provider. Sign off status: Pending * Provider:Mackenzie Dorsey DPM Date:?2023 Generated for Ronaki gerhard/Fajavid/eTransmitting on:?01/14/2025 12:36 PM EDT
--- OUTSIDE RECORDS SUMMARY | 2025-01-14 12:36 | XMS_ITS ---
Author Organization [facility] Address [address] [place] [address] Care Team Providers Care Production Hardener Name Role Phone Heather CONNORS, Magy Todd Primary Care Provider Un available Bruce Dorsey Unavailable [phone] REASON FOR VISIT no show Encounters Encounter Location Date Provider Diagnosis [address] [address] 08/11/2024 Bruce Dorsey Plan Of Treatment No Information Progress Notes * Jocelyn JACOBS MDOB: [birth year] (88 yo F)Acc No.[id number]:08/11/2024 Patient:?ARLENE Jocelyn Palma :1935???Age:88 Y???Sex:Female Address:[address] [place] [address] [address] [place], [address] * true * Date:? Generated for Printi ng/Faaparnag/eTransmitting on:?01/14/2025 12:36 PM EDT
--- OUTSIDE RECORDS SUMMARY | 2025-01-14 12:36 | XMS_ITS ---
Author Organization [facility] Address [address] [place] [address] Care Team Providers Care Mold Dresser Name Role Phone Heather CONNORS, Magy Todd Primary Care Provider Un available Bruce Dorsey Unavailable [phone] Encounters Encounter Location Date Provider Diagnosis [address] [address] 07/31/2024 Bruce Dorsey Plan Of Treatment No Information Progress Notes * JACOBS, Jocelyn CONNORSOB: [birth year] (89 yo F)Acc No.[id number]:07/31/2024 Progress Note Patient:Jocelyn FORD Provider:?Bruce Dorsey DPM :1935???Age:88 Y???Sex:Female D ate:07/31/2024 Address:[address] [place] [address] [address], [id number] Pcp:Louie Anderson Subjective: * Chief Complaints: * [...]
--- OUTSIDE RECORDS SUMMARY | 2025-01-14 12:37 | XMS_ITS | Patient Health Record ---
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, with unspecified presence of clinical manifestation (I70.203) Active confirmed Vital Signs Blood pressure diastolic 70 mm Hg 05/05/2024 Height 5 ft 4 in in 05/05/2024 Blood pressure systolic 120 mm Hg 05/05/2024 Weight 135 lbs 05/05/2024 BMI 23.17 kg/m2 05/05/2024 Procedures Procedure Date Ordered Date Performed Result Body Sit e 60794-QDNVZBF NAIL, 6 OR MORE 02/25/2024 N/A 48449-Cmisxuyb Plate 02/25/2024 N/A 63856-PXXE SKIN LESIONS, OVER 4 02/25/2024 N/A 44233-SCLUNJS NAIL, 6 OR MORE 05/05/2024 N/A 45979-JQUI SKIN LESIONS, OVER 4 05/05/2024 N/A Encounters Encounter Location Date Provider Diagnosis [facility] [address] 02/25/2024 Bruce Dorsey Atherosclerosis of upper [place] artery of both lower extremities, with unspecified presence of clinical manifestation I70.203 ; Tinea unguium B35.1 ; Pain in right toe(s) M79.674 ; Pain in left toe(s) M79.675 and Ingrown nail L60.[facility] [address] 05/05/2024 Bruce Dorsey Atherosclerosis of upper [place] artery of both lower extremities, with unspecified presence of clinical manifestation I70.203 ; Tinea unguium B35.1 ; Pain in right toe(s) M79.674 and Pain in left toe(s) M79.675 [facility] [address] 05/05/2024 [facility] [address] 07/29/2024 [facility] [address] 08/11/2024 Bruce Dorsey Assessments Encounter Date Diagnosis (ICD Code) Assessment Notes Treatment Notes Treatment Clinical Notes Section Notes 02/25/2024 Tinea unguium (ICD-10 - B35.1) 02/25/2024 Atherosclerosis of upper [place] artery of both lower extremities, with unspecified presence of clinical manifestation (ICD-10 - I70.203) 05/05/2024 Tinea unguium (ICD-10 - B35.1) 05/05/2024 Atherosclerosis of [place] artery of both lower extremities, with unspecified [...] X ray : Foot, right 3V 12/28/2022 13863-ZQQCNVZ NAIL, 6 OR MORE 02/05/2023 00074-RTFETMH NAIL, 6 OR MORE 11/13/2022 99213-INEEFIN NAIL, 6 OR MORE 04/16/2023 11495-FPXUJNH NAIL, 6 OR MORE 07/02/2023 00385-KBYNKSK NAIL, 6 OR MORE 09/20/2023 27356-DTNCRMO NAIL, 6 OR MORE 12/03/2023 88630-LCHWWJZ NAIL, 6 OR MORE 02/25/2024 84931-PSKPGIM NAIL, 6 OR MORE 05/05/2024 32222-NRDWAKX NAIL, 6 OR MORE 10/16/2011 28070-SQZLCSZ NAIL, 6 OR MORE 01/15/2012 94874-RYNYIYT NAIL, 6 OR MORE 04/22/2012 34800-KYHJKIF NAIL, 6 OR MORE 07/22/2012 76318-LEJICMI NAIL, 6 OR MORE 10/07/2012 11268-AFWMQNC NAIL, 6 OR MORE 12/30/2012 42656-PQDSEXB NAIL, 6 OR MORE 03/31/2013 98908-BBUPGAO NAIL, 6 OR MORE 06/30/2013 70679-FSUTKQP NAIL, 6 OR MORE 10/06/2013 06848-EJXLFKP NAIL, 6 OR MORE 01/05/2014 08160-XKKODKX NAIL, 6 OR MORE 07/06/2014 29778-XEAWKGF NAIL, 6 OR MORE 10/26/2014 83064-PDILVOP NAIL, 6 OR MORE 01/04/2015 78395-SVMUXQF NAIL, 6 OR MORE 04/05/2015 54527-QSYOSCD NAIL, 6 OR MORE 06/14/2015 10658-DIJYEPU NAIL, 6 OR MORE 04/02/2014 63573-XNBURNY NAIL, 6 OR MORE 09/06/2015 88710-FQJVDIS NAIL, 6 OR MORE 12/02/2015 75301-HRKKFZM NAIL, 6 OR MORE 02/10/2016 46197-JETRCJF NAIL, 6 OR MORE 04/13/2016 17585-RYFUYMI NAIL, 6 OR MORE 06/22/2016 86927-DYDJHCY NAIL, 6 OR MORE 09/04/2016 63158-FPOEFHS NAIL, 6 OR MORE 11/16/2016 63631-NHSWIXZ NAIL, 6 OR MORE 01/29/2017 49879-OJNWRHM NAIL, 6 OR MORE 04/12/2017 70910-XBOZPQM NAIL, 6 OR MORE 06/25/2017 57193-MEHGUWO NAIL, 6 OR MORE 09/03/2017 29281-FTEPSLG NAIL, 6 OR MORE 11/08/2017 60358-QRVBHCU NAIL, 6 OR MORE 01/10/2018 14793-QTHFUQU NAIL, 6 OR MORE 03/25/2018 04858-WUPMMJT NAIL, 6 OR MORE 05/27/2018 33238-WEKMCSR NAIL, 6 OR MORE 09/09/2018 43950-WSJPZPO NAIL, 6 OR MORE 12/05/2018 16799-GBFGOZS NAIL, 6 OR MORE 02/24/2019 30211-YVZJBDM NAIL, 6 OR MORE 05/29/2019 31301-OAQBATQ NAIL, 6 OR MORE 08/04/2019 85916-ERSRDDI NAIL, 6 OR MORE 11/10/2019 22202-MHKXJOW NAIL, 6 OR MORE 02/02/2020 21843-GIKCVIK NAIL, 6 OR MORE 04/12/2020 04469-BTPLWCG NAIL, 6 OR MORE 06/24/2020 65932-GXDKZAG NAIL, 6 OR MORE 09/13/2020 26725-SCNYHTG NAIL, 6 OR MORE 12/20/2020 55399-PQOVXLT NAIL, 6 OR MORE 02/28/2021 32785-OZZTXWO NAIL, 6 OR MORE 05/16/2021 02095-QECHNJJ NAIL, 6 OR MORE 09/15/2021 61369-WSWNYKO NAIL, 6 OR MORE 11/17/2021 62915-IWETYPJ NAIL, 6 OR MORE 02/02/2022 25818-KSJMONT NAIL, 6 OR MORE 04/24/2022 33317-ACYOXAT NAIL, 6 OR MORE 07/06/2022 45750-JEWVDAI NAIL, 6 OR MORE 09/11/2022 84776-Gsfthfyy Plate 06/01/2022 82420-Edhvyqde Plate 09/11/2022 27457-Oclxkwdc Plate 04/24/2022 54054-Bmhwvckk Plate 02/02/2022 99155-Pxydnnjf Plate 11/17/2021 25171-Zrvxakyo Plate 09/15/2021 50990-Koryrflg Plate 05/16/2021 89864-Fjxhmcug Plate 02/28/2021 71398-Rlancips Plate 12/20/2020 71259-Sagtnzzy Plate 09/13/2020 22796-Xrwykyul Plate 06/24/2020 96542-Drowfulq Plate 10/07/2012 58929-Tdxxzfnc Plate 04/12/2020 35916-Yoznheqo Plate 02/02/2020 85056-Ngnymvyg Plate 11/10/2019 10713-Rnorcmwc Plate 12/05/2018 85001-Ojfuhium Plate 09/09/2018 04978-Owqmfnok Plate 05/27/2018 60677-Xdptqvby Plate 01/10/2018 09862-Vmsilldn Plate 04/12/2017 68033-Bdlioghq Plate 09/04/2016 59560-Pvcrbgvj Plate 09/06/2015 59844-Bkfkbqec Plate 04/02/2014 29914-Cpqbgygb Plate 06/14/2015 42650-Gdjnvuon Plate 04/05/2015 96321-Cihusuov Plate 01/04/2015 85546-Legwxdxs Plate 10/26/2014 80979-Jheyhkoz Plate 07/06/2014 25137-Vmrpbqiz Plate 06/30/2013 12799-Hjkxflfh Plate 01/15/2012 92470-Hmkmqesn Plate 02/25/2024 85802-Uhkwaggy Plate 12/03/2023 84824-Pulomcec Plate 07/02/2023 27788-Ompjgkrd Plate 04/16/2023 25768-Kycujicm Plate 11/13/2022 09276-Gieoqqve Plate 02/05/2023 29547-Hccobabz Plate Each Additional 10/2014 87601-Ohoejbnq Plate Each Additional 07/2015 44327-Nmzbovkg Plate Each Additional 06/2015 59469-Ojyqochs Plate Each Additional 82213-Gjxgrwps Plate Each Additional 07/2019 42009-Xfsflkre Plate Each Additional 66610-Jfaojtga Plate Each Additional 43284-Wvcndots Plate Each Additional 76889-Aycxsosb Plate Each Additional 01/2021 69842-Txdkrmbw Plate Each Additional 29999-Oefmsiip Plate Each Additional 07414-Tpymynjy Plate Each Additional 45956-Usbcylys Plate Each Additional 05/2022 15307 I&D ABSCESS- SIMPLE,SINGLE 014 13333 I&D ABSCESS- SIMPLE,SINGLE 012 57324 I&D ABSCESS- SIMPLE,SINGLE 023 79457-IBQU SKIN LESIONS, OVER 4 05/05/20 24 06080-JZTF SKIN LESIONS, OVER 4 02/06/20 23 55249-ASZA SKIN LESIONS, OVER 4 11/14/19 23 24429-ONWJ SKIN LESIONS, OVER 4 04/16/20 23 30963-TCJN SKIN LESIONS, OVER 4 07/02/20 23 83997-TSAY SKIN LESIONS, OVER 4 09/20/19 24 92733-KDSH SKIN LESIONS, OVER 4 12/03/19 24 95696-QGYN SKIN LESIONS, OVER 4 02/25/20 24 80411-NXTF SKIN LESIONS, OVER 4 09/04/19 17 33410-JIKA SKIN LESIONS, OVER 4 11/17/19 17 58773-AMNA SKIN LESIONS, OVER 4 01/30/20 17 46234-ZMYG SKIN LESIONS, OVER 4 06/22/20 16 64042-CIIS SKIN LESIONS, OVER 4 04/13/20 16 89923-JJGT SKIN LESIONS, OVER 4 04/12/20 55946-SHLG SKIN LESIONS, OVER 4 06/25/20 17 74746-WZOI SKIN LESIONS, OVER 4 11/09/19 18 89425-XDBZ SKIN LESIONS, OVER 4 09/03/19 18 38871-PHIS SKIN LESIONS, OVER 4 02/03/20 03656-CVFL SKIN LESIONS, OVER 4 11/18/19 72874-OGAI SKIN LESIONS, OVER 4 04/24/20 19215-FRMW SKIN LESIONS, OVER 4 07/06/20 58667-ZFQT SKIN LESIONS, OVER 4 09/11/19 23 24857-RHQQ SKIN LESIONS, OVER 4 09/15/19 12139-VOAN SKIN LESIONS, OVER 4 05/16/20 95345-YYCA SKIN LESIONS, OVER 4 02/29/20 36860-UKSS SKIN LESIONS, OVER 4 12/21/19 70034-LXNJ SKIN LESIONS, OVER 4 09/13/19 16298-NWOV SKIN LESIONS, OVER 4 06/24/20 20 75406-XUWG SKIN LESIONS, OVER 4 11/10/19 37075-XVPT SKIN LESIONS, OVER 4 08/04/20 04412-ZRFO SKIN LESIONS, OVER 4 02/02/20 79870-XTGA SKIN LESIONS, OVER 4 04/12/20 83751-EGAE SKIN LESIONS, OVER 4 12/06/19 91571-HFZW SKIN LESIONS, OVER 4 05/29/20 18622-BOWS SKIN LESIONS, OVER 4 02/25/20 61493-KKPB SKIN LESIONS, OVER 4 01/11/20 18 38590-KZCD SKIN LESIONS, OVER 4 03/25/20 18 60151-DJRI SKIN LESIONS, OVER 4 05/27/20 18 41157-TCUS SKIN LESIONS, OVER 4 09/09/19 19 06818-ZADE SKIN LESIONS, 2 TO 4 06/14/20 15 17903-IWLZ SKIN LESIONS, 2 TO 4 04/05/20 15 64158-ZQHC SKIN LESIONS, 2 TO 4 04/02/20 14 95871-YSGK SKIN LESIONS, 2 TO 4 09/06/19 16 09060-AHHR SKIN LESIONS, 2 TO 4 02/10/20 16 71679-MQQI SKIN LESIONS, 2 TO 4 12/02/19 16 91645-VTMU SKIN LESIONS, 2 TO 4 01/15/20 12 58684-BZUQ SKIN LESIONS, 2 TO 4 07/22/20 12 89917-ECCN SKIN LESIONS, 2 TO 4 04/22/20 12 19758-CLTC SKIN LESIONS, 2 TO 4 06/30/20 13 82492-SCTZ SKIN LESIONS, 2 TO 4 03/31/20 13 78471-QCMY SKIN LESIONS, 2 TO 4 12/31/19 13 14786-OJBL SKIN LESIONS, 2 TO 4 10/07/19 13 98078-YFUR SKIN LESIONS, 2 TO 4 07/06/20 14 21019-FRXL SKIN LESIONS, 2 TO 4 01/06/20 14 37449-JFYP SKIN LESIONS, 2 TO 4 10/06/19 14 75225-MVQY SKIN LESIONS, 2 TO 4 01/05/20 15 18555-RQFY SKIN LESIONS, 2 TO 4 10/27/19 15 Insurance Providers Payer Name Payer Address Payer Phone Subscriber Number Group Number Insured Name Patient Relationship to Insured Coverage Start Date Coverage End Date Medicare National Govt Sv[employer] [address] [facility] [place] [address] [phone] [id number] Jocelyn Mejia Self - patient is the insured [employer] [address] [place] [id number] Barndon Mejia Spouse - patient is the spouse of the insured Medical (General) History Medical History History ICD Code Arthritis back pain Cholesterol Hiatal hernia osteoporosis reflux hypertension ASO/PVD Arthritis - Degenerative Surgical History Surgery Date(Month/Year) Hospitalization History Reason Date(Month/Year) [facility] Acid reflux 09/08-09/12 [facility]- Flu 10/15
--- OUTSIDE RECORDS SUMMARY | 2025-01-14 12:37 | XMS_ITS | Continuity of Care Document ---
Author Name [facility] Organization [facility] Care Team Providers Care Skiing Instructor Name Role Phone [facility] Unavailable Unavailable Medications Combined list of outpatient medications from Department of Defense and Veterans Affairs facilities.Medications provided include 1) outpatient medications from the last 15 months, and 2) patient-reported medications. Medication Details Route Status Patient Instructions Prescription Expires Prescription Number Last Dispense Date Ordering Provider Order Date Order Qty Source BUSPIRONE HCL (buspirone HCl), 7.5 MG, TABLET, ORAL, [employer] 100 ea. BOTTLE Active [id number] 4 2023 90 Pharmac y Data Transac tion Service Facilit y CELECOXIB (celecoxib) , 200 MG, CAPSULE, ORAL, [employer]ARM[employer]U, 500 ea. BOTTLE Active [id number] 4 2023 90 Pharmac y Data Transac tion Service Facilit y LISINOPRIL (lisinopril ), 2.5 MG, TABLET, ORAL, EXELAN PHARMACE, 500 ea. BOTTLE Active [id number] 4 2023 90 Pharmac y Data Transac tion Service Facilit y OMEPRAZOLE (omeprazole ), 20 MG, CAPSULE CARLOS A HUERTA, [employer], 1000 ea. BOTTLE Active [id number] 4 2023 90 Pharmac y Data Transac tion Service Facilit y OMEPRAZOLE (omeprazole ), 20 MG, CAPSULE CARLOS [employer] HUERTA, [employer], 1000 ea. BOTTLE Active [id number] 4 2023 90 Pharmac y Data Transac tion Service Facilit y PRIMIDONE (PRIMIDONE) , 50 MG, TABLET, ORAL, AV FAZAL, 500 ea. BOTTLE Cancele d [id number] 4 [id number] : 2023 0 Pharmac y Data Transac tion Service Facilit y Immunizations Combined list of available immunizations from the Department of Defense and Veterans Affairs facilities. Immunization Series Date Given Administered By Site Reaction Lot Number CVX Code Drug Coil Connector Status Comments Source COVID-19, mRNA, LNP-S, PF, 30 mcg/0.3 mL dose, susana-sucrose 2021 [employer] [place] (PFR) Not Given COVID-19, mRNA, LNP-S, PF, 30 mcg/0.3 mL dose, susana-sucr ose [employer] COVID-19, mRNA, LNP-S, PF, 30 mcg/0.3 mL dose 2020 [employer] [place] (PFR) Not Given COVID-19, mRNA, LNP-S, [...]
--- NOTE | 2025-01-14 13:05 | AM.OFFVISNUR ---
Intake Visit Reasons: b12 Allergies No Known Allergies Allergy (Verified 01/11/25 10:20) Nursing Note Pt came in for Vitamin B12 injection to right deltoid. Pt tolerated well. Office Meds cyanocobalamin (vitamin B-12) 1,000 mcg/mL injection solution Performing Provider: Magy Romero MD Performing Location: [facility] [place] Administered by: Alva Wang on 01/14/25 13:07 Dose Route Admin Location Dispensed Lot Number Expiration Date [facility] Machine Setter Sheet Metal 1,000 mcg IM right deltoid 1 mL [id number] 02/12/27 16651-139-33 SIMA STARKS Assessment & Plan Assessment & Plan Orders: Orders AMB Vitamin B12 Injection Patient Supplied Today E53.8 - Deficiency of other specified B group vitamins Medications: New cyanocobalamin (vitamin B-12) 1,000 mcg IM ONCE 1 mL 0RF E53.8 - Deficiency of other specified B group vitamins Coding
== END 2025-01-14 13:36 | disposition home or self-care (01) ==
LOC: HO.HMCC 12:34
PROVIDERS: PCP Internal Medicine; Visit Provider Internal Medicine
DX: E53.8 Deficiency of other specified B group vitamins (principal)

== ENCOUNTER → 2025-01-14 12:33 | Outpatient (BNVA) | payer MEDICARE, OTHER, SELFPAY | PROVIDERS: PCP Internal Medicine; Visit Provider Internal Medicine | DX: E53.8 Deficiency of other specified B group vitamins (principal) | CPT/HCPCS: 96372; J3420 ==

== ENCOUNTER → 2025-02-05 12:24 | Outpatient (REF) | payer MEDICARE, OTHER, SELFPAY ==
--- NOTE | 2025-02-05 12:26 | CA_ITS ---
Transthoracic Echocardiogram Patient (Last, First, Middle): Jocelyn Mejia M Gender: Female Date of : 1935 Age: 89 Procedure Date: 02/05/2025 Procedure Type: Transthoracic Echocardiogram Location: OP Height: 157.48 cm Weight: 51.71 kg BSA: 1.51 m2 Heart Rate: 67 bpm BP: 126 / 64 mmHg Power Wheelchair Mechanic: SB Referring MD: Cary Bell MD Environmental Analyst: Sina Tillman MD Symptoms: R60.0 - Localized edema Study Quality: Adequate ECG Rhythm: Sinus Conclusions: - 1. Mildly reduced LV ejection fraction 45-50% with impaired relaxation filling pattern 2. Normal cardiac valvular Dopplers 3. Normal RV systolic pressure 4. No gross pericardial effusion Findings Left Ventricle Normal left ventricular cavity size. There is normal left ventricular wall thickness. The left ventricular systolic function is mildly decreased. The visually estimated ejection fraction is between 45-50%. There is paradoxical septal motion consistent with a left bundle branch block. Spectral Doppler is indicative of an impaired relaxation filling pattern. E/E prime ratio is between 8 and 15 consistent with indeterminate filling pressures. Right Ventricle Normal right ventricular cavity size and systolic function. Atria Both atria are normal in size. Aortic Valve Normal aortic valve structure and function. There is no aortic valve stenosis. There is no aortic valve regurgitation. Mitral Valve Normal mitral valve structure and function. There is trace mitral valve regurgitation. There is no mitral valve stenosis. Pulmonic Valve The pulmonic valve is likely normal. There is trace pulmonic valve regurgitation. Tricuspid Valve Normal tricuspid valve structure. There is trace tricuspid valve regurgitation. The right ventricular systolic pressure is normal. The right ventricular systolic pressure is 26 mmHg. Normal right atrial pressure. There is no evidence of pulmonary hypertension. Great Vessels All visible segments of the aorta are normal in size. The pulmonary artery was not well visualized. There is no dilatation of the ascending aorta measuring 3.20 cm. Venous The inferior vena cava is normal in size and collapses greater than 50% with inspiration. Pericardium/Pleural There is no evidence of pericardial effusion. Prior Study Comparison Changes noted compared to prior study dated: 06/04/2023. marginally reduced LV ejection fraction Measurements 2D Linear Measurements IVSd: 0.63 0.6-0.9/0.6-1.0 cm LVIDd: 5.24 3.9-5.3/4.2-5.9 cm LVIDd Index: 3.47 2.4-3.2/2.2-3.1 cm/m2 LVIDs: 4.32 2.0-3.6 cm LVPWd: 0.56 0.7-1.1 cm LA Diam: 3.30 2.7-3.8/3.0-4.0 cm LAIDs Index: 2.19 1.5-2.3 cm/m2 LV Mass: 126.08 67-162/88-224 g LV Mass Index: 83.49 43-95/49-115 g/m2 LVOT Diam: 2.10 3.0+(-)1.3 cm 2D Systolic Function EF 4C: 35.30 >55% EF 2C: 55.10 >55% EF BiP: 46.10 >55% Mitral Valve MV Pk E: 0.67 MV PK A: 0.97 MV Decel Time: 215.00 E/A: 0.70 E'Lateral: 4.46 E'Medial: 4.13 E/E' Med: 16.20 E/E' Lat: 15.00 PHT: 63.00 MVA PHT: 3.49 Decel [place]: 3.10 Aortic Valve AoV Pk Edward: 1.32 AoV Pk Grad: 7.00 CARRIE: 2.12 LVOT LVOT Pk Edward: 0.77 LVOT Mn Edward: 0.58 LVOT VTI: 0.18 LVOT Pk Grad: 2.00 LVOT Mn Grad: 1.00 LVOT Diam: 2.10 LVOT Area: 3.46 Diastolic Function MV Pk E: 0.67 MV Pk A: 0.97 E/A: 0.70 E'Medial: 4.13 E/E' Med: 16.20 E' Laterial: 4.46 E/E' Lat: 15.00 Right Ventricle TAPSE (mm): 18.80 TVS' Edward: 8.49 Tricuspid Valve TR Pk Edward: 2.42 TR Pk Grad: 23.00 RA Press: 3.00 RVSP: 26.00 Great Vessels Aorta Sinus of Valsalva: 2.90 2.0-3.5 cm Ao Asc: 3.20 2.1-3.4 cm Pulmonary Valve PV Pk Edward: 0.75 Peak PV Grad: 2.00 Updated in Other Vendor System with Status of Final Sina Tillman MD electronically signed on 02/05/2025 5:08:14 PM with status of Final
--- OUTSIDE RECORDS SUMMARY | 2025-02-05 13:02 | XMS_ITS | Patient Health Record ---
Author Organization [facility] Address [address] [place] [address] Care Team Providers Care Clinical Trials Manager Name Role Phone Heather CONNORS, Magy Primary Care Provider Brian Tam Unavailable [phone] SALOMÓN CHAMPION Unavailable Unavailable Allergies Allergen (clinical [...] Problem Status W/U Status Risk Notes Problem 23035957 Cough (R05) Active confirmed Problem 238408165 Gastroesophageal reflux disease with esophagitis (K21.0) Active confirmed Problem 74733590 Erosive esophagi tis (K22.10) Active confirmed Problem 29510264 Constipation, unspecified constipation type (K59.00) Active confirmed Problem 17021359 Esophagitis (K20.9) Active confirmed Problem 07444009 Lower abdominal pain (R10.30) Active confirmed Plan Of Treatment Pending Test Test Name Order Date XR CHEST 2 VIEW PA & LAT 04/25/2021 Future Test Test Name Order Date UPPER GI ENDOSCOPY 11/13/2016 Insurance Providers Payer Name Payer Address Payer Phone Subscriber Number Group Number Insured Name Patient Relationship to Insured Coverage Start Date Coverage End Date MEDICARE OF [place] [address] [place] [address] [id number] JACOBS , HITESH Self - patient is the insured [employer] [place] [address] [place] [address] [id number] FAHAD JACOBSIS Self - patient is the [...] Tremors Elevated cholesterol Degenerative joint disease Denies [place],DM,CVA,Lung disease,renal dise ase Surgical History Surgery Date(Month/Year) Cataracts/lens implants 10/2006
== END ==
LOC: HO.CARD 12:24
PROVIDERS: PCP Internal Medicine; Visit Provider Internal Medicine
DX: R60.0 Localized edema (principal)
CPT/HCPCS: 93306

== ENCOUNTER → 2025-02-05 12:26 | Outpatient (BNV) | payer MEDICARE, OTHER, SELFPAY | PROVIDERS: PCP Internal Medicine; Visit Provider Internal Medicine Cardiovascular Disease | DX: I51.89 Other ill-defined heart diseases (principal) | CPT/HCPCS: 93306 ==

== ENCOUNTER 2025-02-11 09:41 | Outpatient (AMB) | payer MEDICARE, OTHER, SELFPAY ==
--- NOTE | 2025-02-11 09:47 | AM.OFFVISNUR ---
Intake Visit Reasons: B-12 Allergies No Known Allergies Allergy (Verified 01/11/25 10:20) Nursing Note Pt came into the office for Vitamin B12 injection to left deltoid. Pt tolerated well. Office Meds cyanocobalamin (vitamin B-12) 1,000 mcg/mL injection solution Performing Provider: Magy Romero MD Performing Location: [facility] Administered by: Alva Wang on 02/11/25 09:48 Dose Route Admin Location Dispensed Lot Number Expiration Date [facility] Insulation Helper 1,000 mcg IM left deltoid 1 mL [id number] 07/15/26 42590-607-00 DANNYUVWAQAS THERA 1,000 mcg IM 1 mL Total Dispensed Waste 2 mL 0 % Assessment & Plan Assessment & Plan Orders: Orders AMB Vitamin B12 Injection Patient Supplied Today E53.8 - Deficiency of other specified B group vitamins Coding
--- OUTSIDE RECORDS SUMMARY | 2025-02-11 10:38 | XMS_ITS | Patient Health Record ---
Author Organization [facility] Address [address] [place] [address] Care Team Providers Care Apns Name Role Phone Heather CONNORS, Magy Primary Care Provider Brian Tam Unavailable [phone] SALOMÓN CHAMPION Unavailable Unavailable Allergies Allergen (clinical [...] Problem Status W/U Status Risk Notes Problem 49026621 Cough (R05) Active confirmed Problem 009406223 Gastroesophageal reflux disease with esophagitis (K21.0) Active confirmed Problem 23368219 Erosive esophagi tis (K22.10) Active confirmed Problem 84679897 Constipation, unspecified constipation type (K59.00) Active confirmed Problem 20211100 Esophagitis (K20.9) Active confirmed Problem 18835645 Lower abdominal pain (R10.30) Active confirmed Plan Of Treatment Pending Test Test Name Order Date XR CHEST 2 VIEW PA & LAT 04/25/2021 Future Test Test Name Order Date UPPER GI ENDOSCOPY 11/13/2016 Insurance Providers Payer Name Payer Address Payer Phone Subscriber Number Group Number Insured Name Patient Relationship to Insured Coverage Start Date Coverage End Date MEDICARE OF [place] [address] [place] [address] [id number] JACOBS , HITESH Self - patient is the insured [employer] [address] [place] [address] [id number] FAHAD JACOBSIS Self - patient is the [...] Tremors Elevated cholesterol Degenerative joint disease Denies [place],DM,CVA,Lung disease,renal dise ase Surgical History Surgery Date(Month/Year) Cataracts/lens implants 10/2006
== END 2025-02-11 09:50 | disposition home or self-care (01) ==
LOC: HO.HMCC 09:41
PROVIDERS: PCP Internal Medicine; Visit Provider Internal Medicine
DX: E53.8 Deficiency of other specified B group vitamins (principal)

== ENCOUNTER → 2025-02-11 09:41 | Outpatient (BNVA) | payer MEDICARE, OTHER, SELFPAY | PROVIDERS: PCP Internal Medicine; Visit Provider Internal Medicine | DX: E53.8 Deficiency of other specified B group vitamins (principal) | CPT/HCPCS: 96372; J3420 ==

== ENCOUNTER 2025-03-04 18:45 | Inpatient (IN) | payer MEDICARE, OTHER, SELFPAY ==
--- OUTSIDE RECORDS SUMMARY | 2024-08-11 05:15 | XMS_ITS ---
Author Organization [facility] Address [address] [place] [address] Care Team Providers Care Ground Helper Street Railway Name Role Phone Heather CONNORS, Magy Todd Primary Care Provider Un available Bruce Dorsey Unavailable [phone] Encounters Encounter Location Date Provider Diagnosis [address] [address] 08/11/2024 Bruce Dorsey Plan Of Treatment No Information Progress Notes * JACOBSJocelyn MDOB: [birth year] (89 yo F)Acc No.[id number]:08/11/2024 Progress Note Patient: Jocelyn HYDE Provider: Abdiaziz Dorsey DPM :1935 A ge:88 Y S ex:Female Date:08/11/2024 Address:[address] [place] [address] [address], [id number] Pcp:Louie [place] Subjective: * Chief Complaints: * [...] 10/12/2023 Generated for Printi ng/Faxing/eTransmitting on: 0 03/04/2025 08:18 PM EDT
--- NOTE | ~2025-03-04 | CT_ITS ---
CLINICAL HISTORY: colitis? --- Additional Notes or Special Instructions: PT STATES HX KIDNEY DISEASE, OK WITH NON CONTRAST CT abdomen and pelvis without contrast Comparison: CT/SR - CT ABDOMEN PELVIS W IV CON - 12/06/24 06:12 EDT Findings: Lung bases are clear. Small hiatal hernia. Markedly distended gallbladder. No radiopaque stone, wall thickening or pericholecystic fluid is seen. Multiple hepatic cysts with largest measuring 5.7 cm. The right kidney is unremarkable. Redemonstration of the large solid cystic left kidney lesion with the solid component measures proximally 3.7 x 4.2 x 4.3 cm there is interval decrease in size of the cystic component. Adrenal glands, spleen, and pancreas are within normal limits. Bowel loops are nondilated. Moderate diverticulosis of the distal descending and sigmoid colon without evidence of acute diverticulitis. Moderate diffuse mesenteric stranding most notably of the right lower quadrant. Normal appendix. Pelvic contents unremarkable. Normal appendix. The bones are intact. Severe s shaped scoliosis of the thoracolumbar spine on degenerative basis. IMPRESSION: Moderate diffuse mesenteric stranding most notably of the right lower quadrant, may represent enteritis/colitis. Small hiatal hernia. Markedly distended gallbladder, otherwise unremarkable. Correlate with NPO status. Redemonstration of large solid cystic left kidney lesion with interval decrease in size of the cystic component. Moderate distal descending and sigmoid colon diverticulosis without evidence of acute diverticulitis. Severe S shaped scoliosis of the thoracolumbar spine on degenerative basis. This document has been electronically signed by: Sada Luis MD on 03/04/2025 21:30:28
[2025-03-04 19:11] VITALS: BP 130/76; BP 134/73; PULSE 102; PULSE 107; RESP 22; TEMP 38.9; O2SAT 95; O2SAT 96; BMI 21.2
[2025-03-04 19:16] LABS: Hematocrit 38.0 % (37.0-47.0); Hemoglobin 12.6 g/dl (12.0-16.0); Imm Gran Abs Auto 0.02 X10*3/uL (0.00-0.03); Imm Gran Pct Auto 0.3 % (0.0-0.4); Lymphocytes Absolute Auto 0.3 X10*3/uL (1.2-4.9); MANUAL DIFF FLAG SCAN; Mean Corpuscular HGB Conc 33.2 g/dl (31.0-35.0); Mean Corpuscular Hemoglobin 31.6 pg (27.0-33.0); Mean Corpuscular Volume 95.2 fL (80.0-98.0); NRBC Abs Auto 0.000 X10*3/uL (0.0-0.012); NRBC Pct Auto 0.0 /100WBC (0.0-0.2); Platelet Count 186 X10*3/uL (160-400); Red Blood Count 3.99 X10*6/uL (4.20-5.50); SCAN SMEAR FLAG 1; White Blood Count 6.6 X10*3/uL (4.8-10.8)
[2025-03-04 19:31] LABS: Alanine Aminotransferase 7 U/L (0-31); Albumin Level 4.3 g/dL (3.5-5.0); Alkaline Phosphatase 61 U/L (39-117); Anion Gap 12 (12-20); Aspartate Amino Transferase 21 U/L (5-31); Blood Urea Nitrogen 29 mg/dL (9-16); Calcium 8.8 mg/dL (8.4-10.2); Carbon Dioxide 23 mmol/L (22-29); Chloride 108 mmol/L (96-108); Creatinine Clr Calc Pharmacy 32.2; Estimated Glomerular Filt Rate 50; Lipase 67 U/L (8-78); Magnesium 1.9 mg/dL (1.6-2.6); Potassium 4.3 mmol/L (3.3-5.1); Sodium 139 mmol/L (135-145); Total Protein 7.4 g/dL (6.5-8.0)
--- OUTSIDE RECORDS SUMMARY | 2025-03-04 20:18 | XMS_ITS | Continuity of Care Document ---
Author Name [facility] Organization [facility] Care Team Providers Care Wreath Machine Operator Name Role Phone [facility] Unavailable Unavailable Medications Combined list of outpatient medications from Department of Defense and Veterans Affairs facilities.Medications provided include 1) outpatient medications from the last 15 months, and 2) patient-reported medications. Medication Details Route Status Patient Instructions Prescription Expires Prescription Number Last Dispense Date Ordering Provider Order Date Order Qty Source BUSPIRONE HCL (buspirone HCl), 7.5 MG, TABLET, ORAL, [employer] 100 ea. BOTTLE Active [id number] 4 2023 90 Pharmac y Data Transac tion Service Facilit y CELECOXIB (celecoxib) , 200 MG, CAPSULE, ORAL, SOL[employer]ARMACEU, 500 ea. BOTTLE Active [id number] 4 2023 90 Pharmac y Data Transac tion Service Facilit y LISINOPRIL (lisinopril ), 2.5 MG, TABLET, ORAL, EXELAN PHARMACE, 500 ea. BOTTLE Active [id number] 4 2023 90 Pharmac y Data Transac tion Service Facilit y PRIMIDONE (PRIMIDONE) , 50 MG, TABLET, ORAL, AV FAZAL, 500 ea. BOTTLE Cancele d [id number] : 2023 0 Pharmac y Data Transac tion Service Facilit y Immunizations Combined list of available immunizations from the Department of Defense and Veterans Affairs facilities. Immunization Series Date Given Administered By Site Reaction Lot Number CVX Code Drug Graphic Art Sales Representative Status Comments Source COVID-19, mRNA, LNP-S, PF, 30 mcg/0.3 mL dose, susana-sucrose 2021 [employer] [place] (PFR) Not Given COVID-19, mRNA, LNP-S, PF, 30 mcg/0.3 mL dose, susana-sucr ose [facility] COVID-19, mRNA, LNP-S, PF, 30 mcg/0.3 mL dose 2020 [employer] [place] (PFR) Not Given COVID-19, mRNA, LNP-S, [...]
[2025-03-04 20:19] LABS: Resp Syncy Virus RNA Qual PCR NEGATIVE (Negative); SARS COV2 PCR INHOUSE NEGATIVE (Negative)
--- OUTSIDE RECORDS SUMMARY | 2025-03-04 20:19 | XMS_ITS | Patient Health Record ---
Author Organization [facility] Address [address] [place] [address] Care Team Providers Care Director Of Vital Statistics Name Role Phone Heather CONNORS, Mayg Primary Care Provider Brian Tam Unavailable [phone] SALOMÓN CHAMPION Unavailable Unavailable Allergies Allergen (clinical [...] Problem Status W/U Status Risk Notes Problem 13426330 Cough (R05) Active confirmed Problem 032988385 Gastroesophageal reflux disease with esophagitis (K21.0) Active confirmed Problem 85190513 Erosive esophagi tis (K22.10) Active confirmed Problem 05460568 Constipation, unspecified constipation type (K59.00) Active confirmed Problem 37207544 Esophagitis (K20.9) Active confirmed Problem 47308926 Lower abdominal pain (R10.30) Active confirmed Plan Of Treatment Pending Test Test Name Order Date XR CHEST 2 VIEW PA & LAT 04/25/2021 Future Test Test Name Order Date UPPER GI ENDOSCOPY 11/13/2016 Insurance Providers Payer Name Payer Address Payer Phone Subscriber Number Group Number Insured Name Patient Relationship to Insured Coverage Start Date Coverage End Date MEDICARE OF [place] [address] [place] [address] [phone] [id number] JACOBS , HITESH Self - patient is the insured [employer] [address] [place] [address] [id number] [id number] JACOBSIS Self - patient is the [...] Tremors Elevated cholesterol Degenerative joint disease Denies [place],DM,CVA,Lung disease,renal dise ase Surgical History Surgery Date(Month/Year) Cataracts/lens implants 10/2006
--- NOTE | 2025-03-04 20:23 | ED.GENADULT ---
HPI - General Adult General Chief complaint: Abdominal Pain Stated complaint: N/V/D Time Seen by Provider: 03/04/25 20:23 Source: patient Limitations: no limitations History of Present Illness ED Provider: Lita Elias PA-C HPI narrative: 89-year-old female with history of macrocytic anemia, self report of ?kidney lesion on antibiotics?, colitis, osteoarthritis, chronic back pain, osteoporosis, hypertension, hyperlipidemia and GERD who presents with nausea vomiting diarrhea since earlier today. Associated left lower abdominal discomfort. Denies fevers. Patient states she is coming from assisted living, 1 of her friends is sick with similar symptoms. Patient also states she is still on antibiotics for her kidney lesion. She denies recent travel or hospitalization. Denies bloody diarrhea. Related Data Home Medications ?Medication ?Instructions ?Recorded ?Confirmed denosumab 60 mg/mL subcutaneous 60 mg subcut [id number] 05/25/20 12/16/24 syringe (Prolia) cholecalciferol (vitamin D3) 25 25 mcg PO DAILY 12/06/24 12/16/24 mcg (1,000 unit) tablet omeprazole 20 mg capsule,delayed 20 mg PO DAILY@0630 12/06/24 12/16/24 release primidone 50 mg tablet 150 mg PO BEDTIME 12/06/24 12/16/24 propranolol 60 mg capsule,24 60 mg PO DAILY 12/06/24 12/16/24 hr,extended release Previous Rx's ?Medication ?Instructions ?Recorded miscellaneous medical supply #1 ea 05/07/23 lisinopril 2.5 mg tablet 2.5 mg PO DAILY #90 tabs 09/24/24 cyanocobalamin (vitamin B-12) 1,000 mcg IM Q4W #3 mL 10/03/24 1,000 mcg/mL injection solution cefuroxime axetil 500 mg tablet 500 mg PO BID #28 tabs 12/11/24 buspirone 7.5 mg tablet 7.5 mg PO BEDTIME #90 tabs 12/17/24 ondansetron HCl 4 mg tablet 4 mg PO Q8H PRN nausea and 12/17/24 vomiting #30 tabs ascorbic acid (vitamin C) 1,000 mg 1 g PO DAILY 90 days #90 tabs 12/23/24 tablet methenamine hippurate 1 gram tablet 1 g PO DAILY 90 days #90 tabs 12/23/24 sodium phosphates 19 gram-7 118 ml ND ONCE #133 mL 01/11/25 gram/118 mL enema (Fleet Enema) acetaminophen 300 mg-codeine 15 mg 1 tab PO DAILY PRN pain (scale 01/14/25 tablet score 7-10) #10 tabs torsemide 5 mg tablet 5 mg PO QAM PRN pedal edema #10 02/19/25 tabs Allergies Allergy/AdvReac Type Severity Reaction Status Date / Time No Known Allergies Allergy Verified 03/04/25 19:15 Review of Systems Review of Systems: Yes all other systems are reviewed and are negative Constitutional: Constitutional: Denies fatigue and Denies fever(s) Cardiovascular: Cardiovascular: Denies chest pain and Denies dyspnea Respiratory: Respiratory: Denies dyspnea Gastrointestinal: Gastrointestinal: Reports abdominal pain, Denies hematochezia, Reports diarrhea, Reports nausea and Reports vomiting Genitourinary: Genitourinary: Denies dysuria Endocrine: Endocrine: Denies fatigue PMFSH Past Medical History Attestation statement: The following information was validated with the patient. 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 Mother Arthritis Son No problems noted. Daughter No problems noted. Brother No problems noted. Social History Social History Household Members: None Housing: Apartment Do you presently have visiting nurse or other home services: No Alcohol intake: former Patient Tobacco Use Status: Never used Tobacco Tobacco use type: Cigarette e-Cigarette/Vaping Use: Never Used Second Hand Smoke Exposure: Yes Advance Directives: Yes Advance Directives on File: Yes Advance Directives Date on File: 03/11/24 service: No Current occupational status: retired Current occupation: Retired Cognitive needs: No Hearing needs: No Vision needs: Yes Physical Exam ED Vital Signs: Vital Signs - 24 hr 03/04/25 19:11 03/04/25 20:44 03/04/25 21:14 Temperature 102.0 F H Pulse Rate 107 H 96 90 Respiratory Rate 22 H 19 17 Blood Pressure 134/73 95/50 L 103/52 L Pulse Oximetry 96 96 97 Oxygen Delivery Method Room Air Room Air Room Air 03/04/25 21:28 Temperature Pulse Rate 93 Respiratory Rate 18 Blood Pressure 103/52 L Pulse Oximetry 97 Oxygen Delivery Method Room Air BMI result Body Mass Index 21.2 Const Other: Alert Orientation/consciousness: patient oriented x3 Resp Effort & Inspection: normal respiratory effort Cardio Other: Normal peripheral perfusion GI Other: Abdomen is objectively distended, somewhat tense, mild to moderate tenderness across entire lower abdomen with a mild involuntary guarding, right greater than left Skin Other: Warm dry no rash Neuro General: patient oriented x3, gait normal, no focal motor deficits and CN's II-XI intact bilaterally Psych Other: Cooperative Course Reevaluation(s) Reevaluation #1: Sepsis focused exam performed at 7:40 p.m. on March 04, patient is febrile, tachycardic, in addition to labs adding blood cultures lactic, giving a 500 mL bolus, starting ceftriaxone Time: 19:40 Reevaluation #2: Lactic 1.2 Medications Administered Discontinued Medications Generic Name Dose Route Start Last Admin Trade Name Freq PRN Reason Stop Dose Admin Ceftriaxone Sodium 2 gm 03/04/25 19:40 03/04/25 19:46 Ceftriaxone Sodium 2 Gm Vial IVPUSH 03/04/25 19:41 2 gm ONCE ONE Administration Sodium Chloride 500 mls @ 500 mls/hr 03/04/25 18:53 03/04/25 19:11 Ns IV 03/04/25 19:52 500 mls/hr .Q1H ONE Administration Acetaminophen 1,000 mg in 100 mls @ 400 mls/hr 03/04/25 19:24 03/04/25 19:48 Ofirmev IV 03/04/25 19:38 Infused ONCE ONE Infusion Morphine Sulfate 2 mg 03/04/25 18:57 03/04/25 19:28 Morphine Sulfate 2 Mg/Ml Cartridge IVPUSH 03/04/25 18:58 2 mg ONCE ONE Administration Protocol Ondansetron HCl 4 mg 03/04/25 18:53 03/04/25 19:27 Ondansetron Hcl 4 Mg/2 Ml Vial IVPUSH 03/04/25 18:54 4 mg ONCE ONE Administration Medical Decision Making Medical Decision Making MDM Narrative: 89-year-old female with history of macrocytic anemia, self report of ?kidney lesion on antibiotics?, colitis, osteoarthritis, chronic back pain, osteoporosis, hypertension, hyperlipidemia and GERD who presents with nausea vomiting diarrhea since earlier today. Associated left lower abdominal discomfort. Denies fevers. Patient states she is coming from assisted living, 1 of her friends is sick with similar symptoms. Patient also states she is still on antibiotics for her kidney lesion. She denies recent travel or hospitalization. Denies bloody diarrhea. Problem: Age, known anemia, known kidney disease, colitis History: Per patient I have considered the following differential diagnoses: Viral gastroenteritis, C diff, traveler's diarrhea, sigmoid diverticulitis, colitis, sepsis Plan: Patient's spiked a temperature, I am concerned for sepsis secondary to intra-abdominal pathology. In addition to screening labs we will be adding on blood cultures, lactic, giving a 500 mL fluid bolus as her pressures are stable, and starting ceftriaxone. Giving Tylenol for the fever. Giving morphine and Zofran for her nausea and discomfort. Given distribution of discomfort, I am considering colitis versus diverticulitis. Obtaining a CT scan. The patient is stating she can not have contrast, she has been told by her doctor due to the kidney lesion, she should not have contrast studies. It will have to be a non-con. I do not think she will tolerate oral intake. She may have viral gastroenteritis, she has a friend with similar symptoms. She also could have C diff, she is on antibiotics. She has no risk for traveler's diarrhea. I have independently reviewed the following tests: Labs: No overall leukocytosis, left shift noted, not anemic, no electrolyte abnormality, LFTs are normal, lactic is 1.2 CT abdomen and pelvis:MPRESSION: Moderate diffuse mesenteric stranding most notably of the right lower quadrant, may represent enteritis/colitis. Small hiatal hernia. Markedly distended gallbladder, otherwise unremarkable. Correlate with NPO status. Redemonstration of large solid cystic left kidney lesion with interval decrease in size of the cystic component. Moderate distal descending and sigmoid colon diverticulosis without evidence of acute diverticulitis. Severe S shaped scoliosis of the thoracolumbar spine on degenerative basis. Lab Data 03/04/25 19:09 03/04/25 19:09 Labs: Lab Results 03/04/25 03/04/25 Range/Units 19:09 19:35 WBC 6.6 (4.8-10.8) X10*3/uL RBC 3.99 L D (4.20-5.50) X10*6/uL Hgb 12.6 D (12.0-16.0) g/dl Hct 38.0 (37.0-47.0) % MCV 95.2 (80.0-98.0) fL MCH 31.6 (27.0-33.0) pg MCHC 33.2 (31.0-35.0) g/dl RDW 13.7 (11.0-16.0) % Plt Count 186 D (160-400) X10*3/uL MPV 10.2 (9.4-12.3) fL Immature Gran % (Auto) 0.3 (0.0-0.4) % Neut % (Auto) 93.0 H (45-73) % Lymph % (Auto) 4.5 L (20-40) % [place] % (Auto) 1.8 L (2-11) % Eos % (Auto) 0.2 (0-4) % Baso % (Auto) 0.2 (0-2) % Lymph # (Auto) 0.3 L (1.2-4.9) X10*3/uL [place] # (Auto) 0.1 (0.1-1.2) X10*3/uL Eos # (Auto) 0.0 (0.0-0.4) X10*3/uL Baso # (Auto) 0.0 (0.0-0.2) X10*3/uL Abs Immat Gran (auto) 0.02 (0.00-0.03) X10*3/uL Absolute Neuts (auto) 6.2 (2.0-8.3) x10*3/uL Absolute Nucleated RBC 0.000 (0.0-0.012) X10*3/uL Nucleated RBC % (auto) 0.0 (0.0-0.2) /100WBC Smear Tech's Comments VERIFIED Sodium 139 (135-145) mmol/L Potassium 4.3 D (3.3-5.1) mmol/L Chloride 108 (96-108) mmol/L Carbon Dioxide 23 (22-29) mmol/L Anion Gap 12 (12-20) BUN 29 H (9-16) mg/dL Creatinine 1.04 (0.5-1.4) mg/dL Estim Creat Clear Calc 32.2 Estimated GFR 50 Random Glucose 120 H (60-115) mg/dL Lactic Acid 1.2 (0.5-2.0) mmol/L Calcium 8.8 D (8.4-10.2) mg/dL Magnesium 1.9 (1.6-2.6) mg/dL Total Bilirubin 0.3 (0.0-1.0) mg/dL AST 21 (5-31) U/L ALT 7 (0-31) U/L Alkaline Phosphatase 61 (39-117) U/L Total Protein 7.4 (6.5-8.0) g/dL Albumin 4.3 (3.5-5.0) g/dL Lipase 67 (8-78) U/L Influenza Type A (PCR) NEGATIVE (Negative) Influenza Type B (PCR) NEGATIVE (Negative) RSV RNA Qual (PCR) NEGATIVE (Negative) SARS-CoV-2 RNA (RT-PCR) NEGATIVE (Negative) Discharge Plan Discharge Clinical Impression: Colitis, Fever, Sepsis Patient Disposition: Admitted As Inpatient Print Language: Uzbek
[2025-03-04 20:44] VITALS: BP 95/50; PULSE 96; RESP 19; O2SAT 96
[2025-03-04 21:14] VITALS: BP 102/45; PULSE 95; RESP 17; O2SAT 96
[2025-03-04 21:28] VITALS: BP 103/52; PULSE 93; RESP 18; O2SAT 97
--- NOTE | 2025-03-04 21:51 | PM.IMHP ---
History of Present Illness Date of Service: 03/04/25 Attending physician on admission: Horace De Los Santos Chief Complaint: Diarrhea Jocelyn Mejia is a 89 years old woman with past medical history significant for renal complex cyst, essential hypertension, GERD and HFrEF (40-50% echo January 2025) on torsemide presents to the ED complaining of multiple events of watery nonbloody diarrhea and nonbloody vomiting that started today at 11:30. This happened after she ate lunch. She also have chills, fever and mild headache. She denied any palpitations, chest pain, shortness on breath, pain with urination and abdominal pain. She has not been taking antibiotics recently. She takes methenamine to prevent UTI. She denied contact with ill people or recent travel history. 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 Denied tobacco smoking, alcohol abuse or illicit drug use. In the ED, she was found to have fever 102. There is mild tachycardia, tachypnea and soft blood pressure. Last blood pressure is 103/52. Blood workup showed no leukocytosis or lactic acidosis. There are no significant electrolyte imbalances. BUN is 29 and creatinine 1.04. Hemoglobin is 12.6 and platelets 186. LFTs and lipase are normal. Viral testing for COVID-19, influenza and RSV is negative. Abdominal pelvis CT scan showed moderate diffuse mesenteric stranding most notable at the right lower quadrant may represent enteritis/colitis. It also showed a markedly dilated gallbladder otherwise unremarkable, redemonstration of large solid cystic left kidney lesion with interval decrease in size of the cystic component and moderate distal descending and sigmoid colon diverticulosis without acute diverticulitis. ED tx: NS 500 mL bolus, Zofran 4 mg IV, morphine 2 mg IV, acetaminophen 1 g IV, ceftriaxone 2 g IV Review of Systems Review of Systems: All 12 systems were reviewed and normal except as noted in HPI. 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 Mother Arthritis Son No problems noted. Daughter No problems noted. Brother No problems noted. Surgical History Hx of colonoscopy History of esophagogastroduodenoscopy (EGD) History of intraocular lens implant Social History Household Members: None Housing: Apartment Do you presently have visiting nurse or other home services: No Alcohol intake: former Patient Tobacco Use Status: Never used Tobacco Tobacco use type: Cigarette e-Cigarette/Vaping Use: Never Used Second Hand Smoke Exposure: Yes Advance Directives: Yes Advance Directives on File: Yes Advance Directives Date on File: 03/11/24 service: No Current occupational status: retired Current occupation: Retired Cognitive needs: No Hearing needs: No Vision needs: Yes Meds Allergies Allergy/AdvReac Type Severity Reaction Status Date / Time No Known Allergies Allergy Verified 03/04/25 19:15 Active Medications: Current Medications Acetaminophen (Acetaminophen 325 Mg Tablet) 650 mg PO Q6H PRN PRN Reason: Pain, Mild 1-3,fever,headache Calcium Carbonate (Calcium Carbonate 750 Mg Tab.Chew) 750 mg PO Q4H PRN PRN Reason: Heartburn Metronidazole (Flagyl) 500 mg in 100 mls @ 100 mls/hr IV ONCE ONE Stop: 03/04/25 22:41 Lactated Ringer's (Lr) 1,000 mls @ 80 mls/hr IVCONT .[id number] DAWNA Stop: 03/05/25 10:29 Melatonin (Melatonin 3 Mg Tablet) 6 mg PO BEDTIME PRN PRN Reason: Insomnia Sodium Chloride (0.9 % Sodium Chloride Flush 3 Ml Syringe) 3 ml IVFLUSH QSHIFT DAWNA Home Medications ?Medication ?Instructions ?Recorded ?Confirmed ?Last Taken ?Type denosumab 60 mg/mL subcutaneous 60 mg subcut [id number] 09/30/20 04/23/25 4 Months Ago History syringe (Prolia) ~06/01/24 cholecalciferol (vitamin D3) 25 25 mcg PO DAILY 12/06/24 12/16/24 Unknown History mcg (1,000 unit) tablet omeprazole 20 mg capsule,delayed 20 mg PO DAILY@0630 12/06/24 12/16/24 Unknown History release primidone 50 mg tablet 150 mg PO BEDTIME 12/06/24 12/16/24 Unknown History propranolol 60 mg capsule,24 60 mg PO DAILY 12/06/24 12/16/24 Unknown History hr,extended release Physical Exam Vital Signs and Narrative: Vital Signs: Last Vital Signs Temp 102.0 F H 03/04/25 19:11 Pulse 93 03/04/25 21:28 Resp 18 03/04/25 21:28 BP 103/52 L 03/04/25 21:28 Pulse Ox 97 03/04/25 21:28 O2 Del Method Room Air 03/04/25 21:28 BMI result Body Mass Index 21.2 Constitutional - Awake and Alert, No apparent distress. Acutely ill. Pleasant. Cooperative. HEENT - PER, EOMI. Normal sclerae. Dry oral mucosa. Heart - RRR, No murmurs Lungs - Normal lung expansion, Normal respiratory effort, No respiratory distress, CTA bilaterally Abdomen- NT / ND; increased BS; No rebound or guarding Extremities - no calf tenderness bilaterally, no swelling Musculoskeletal - Normal inspection, normal ROM Skin - Warm/Dry Neurological - Alert & oriented x3. Moving all extremities spontaneously. Normal speech. Psychological - Appropriate affect Results Labs 03/04/25 19:09 03/04/25 19:09 Labs: Laboratory Results - last 24 hr 03/04/25 03/04/25 19:09 19:35 MCV 95.2 MCH 31.6 MCHC 33.2 RDW 13.7 Plt Count 186 D MPV 10.2 Immature Gran % (Auto) 0.3 Neut % (Auto) 93.0 H Lymph % (Auto) 4.5 L [place] % (Auto) 1.8 L Eos % (Auto) 0.2 Baso % (Auto) 0.2 Lymph # (Auto) 0.3 L [place] # (Auto) 0.1 Eos # (Auto) 0.0 Baso # (Auto) 0.0 Abs Immat Gran (auto) 0.02 Absolute Neuts (auto) 6.2 Absolute Nucleated RBC 0.000 Nucleated RBC % (auto) 0.0 Smear Tech's Comments VERIFIED Anion Gap 12 Estim Creat Clear Calc 32.2 Estimated GFR 50 Random Glucose 120 H Lactic Acid 1.2 Calcium 8.8 D Magnesium 1.9 Total Bilirubin 0.3 AST 21 ALT 7 Alkaline Phosphatase 61 Total Protein 7.4 Albumin 4.3 Lipase 67 Influenza Type A (PCR) NEGATIVE Influenza Type B (PCR) NEGATIVE RSV RNA Qual (PCR) NEGATIVE SARS-CoV-2 RNA (RT-PCR) NEGATIVE Assessment and Plan (1) Acute gastroenteritis: Status: Acute (2) Acute colitis: Status: Acute Plan Jocelyn Mejia is a 89 y/o woman admitted with: Acute gastroenteritis and colitis, likely infectious, causing dehydration. No recent use of antibiotics. She takes methenamine (low C.diff risk). Admit to hospitalist service. Advance diet as tolerated. Gentle IV fluids. Symptomatic therapy with Zofran, Tylenol and morphine as needed. Continue empiric IV antibiotic therapy with ceftriaxone and Flagyl. Hold methenamine and torsemide -dehydration. Check GI panel. Tremors. Continue primidone. Hold propranolol (soft BP). Essential hypertension. Hold lisinopril and propranolol due to soft BP HFrEF (40-50 % TTE January 2025). No acute findings of decompensation. Torsemide on hold due to dehydration. Left kidney large solid cystic lesion, decreasing in size. F/U as an outpatient by Dr. Matute. GERD. Continue omeprazole. DVT prophylaxis: Heparin Code status: Full Patient will need hospitalization for at least 2 midnights for acute gastroenteritis and colitis treatment with empiric IV antibiotic therapy and gentle IV hydration. Quality Stroke Does the patient have a stroke diagnosis?: No VTE Prior VTE?: No VTE Risk Level:: Medical - moderate - high VTE Device Contraindication: Treatment Not Indicated VTE Drug Contraindication: N/A - Med Ordered
[2025-03-04 21:54] VITALS: TEMP 38.1
[2025-03-04] MEDS: metroNIDAZOLE/NS 500 MG/100 ML PIGGYBACK 100 MG IV (21:55)
[2025-03-04] MEDS: Lactated Ringers 1,000 ML 80 ML IVCONT (23:02)
[2025-03-05] VITALS (8 sets, daily range): BP systolic 110–150; BP diastolic 54–75; PULSE 74–98; RESP 14–19; TEMP 36.1–37.2; O2SAT 94–100; BMI 21.4
[2025-03-05] MEDS: metroNIDAZOLE/NS 500 MG/100 ML PIGGYBACK 100 MG IV ×3 (06:40→22:06)
[2025-03-05 06:44] LABS: MANUAL DIFF FLAG NO
[2025-03-05 06:57] LABS: Hematocrit 31.6 % (37.0-47.0); Hemoglobin 10.1 g/dl (12.0-16.0); Imm Gran Abs Auto 0.03 X10*3/uL (0.00-0.03); Imm Gran Pct Auto 0.5 % (0.0-0.4); Lymphocytes Absolute Auto 0.7 X10*3/uL (1.2-4.9); Mean Corpuscular HGB Conc 32.0 g/dl (31.0-35.0); Mean Corpuscular Hemoglobin 31.4 pg (27.0-33.0); Mean Corpuscular Volume 98.1 fL (80.0-98.0); NRBC Abs Auto 0.000 X10*3/uL (0.0-0.012); NRBC Pct Auto 0.0 /100WBC (0.0-0.2); Platelet Count 164 X10*3/uL (160-400); Red Blood Count 3.22 X10*6/uL (4.20-5.50); White Blood Count 5.7 X10*3/uL (4.8-10.8)
[2025-03-05 07:21] LABS: Alanine Aminotransferase < 6 U/L (0-31); Albumin Level 3.2 g/dL (3.5-5.0); Alkaline Phosphatase 44 U/L (39-117); Anion Gap 12 (12-20); Aspartate Amino Transferase 15 U/L (5-31); Blood Urea Nitrogen 25 mg/dL (9-16); Carbon Dioxide 22 mmol/L (22-29); Chloride 110 mmol/L (96-108); Creatinine Clr Calc Pharmacy 44.7; Estimated Glomerular Filt Rate > 60; Magnesium 1.7 mg/dL (1.6-2.6); Potassium 3.6 mmol/L (3.3-5.1); Sodium 140 mmol/L (135-145); Total Protein 5.4 g/dL (6.5-8.0)
[2025-03-05 07:26] LABS: Appearance Urine Clear; Glucose Urine UA Negative (Negative); PH 6.0 (5.0-9.0); Specific Gravity - Urine 1.025 (1.005-1.025); UMIC TRIGGER UACC YES
[2025-03-05 07:30] LABS: Calcium 7.9 mg/dL (8.4-10.2)
[2025-03-05] MEDS: 0.9 % Sodium Chloride Flush 3 ML SYRINGE IVFLUSH ×2 (07:46→20:26)
--- NOTE | 2025-03-05 08:46 | PHA.MEDREC ---
Addendum entered by Deandre Gerard RPh 03/05/25 09:14: Reviewed by [facility] Original Note: Pharmacy Consult ? Medication Reconciliation Pharmacy has completed the medication reconciliation. Spoke with pt and she has on hand a written list of medications we use to confirm the med rec. Pt confirmed her Vitamin B-12 injection once every 4 weeks, stating she is due for it next . Pt also confirmed her Prolia, stating she gets it every [address] and she isn't due for it until May. Pt states she still takes Propanolol 60mg tabs as needed for tremors.
--- NOTE | 2025-03-05 09:30 | PC.NURSE ---
GI panel not collected, Pt has not had BM.
--- NOTE | 2025-03-05 10:11 | MHC.CM.ED ---
Met with patient in regards to discharge planning. Patient lives alone in senior housing, ambulates with a walker and had no services prior to coming to the hospital. No services anticipated to be needed at d/c at this time. PCP verified. Copy of HCP verified to be on file. Bipin HUYNH explained and signed. Patient's family will transport her home when medically stable. Patient is unsure at this time which family member. Continue to monitor for d/c needs.
--- NOTE | 2025-03-05 11:51 | P.CNGI_ITS ---
History of Present Illness Data of Consult Service Date: 03/05/25 Requesting physician: Yovany Owusu Primary Care Provider: Magy Romero MD HPI Reason for consult: Recurrent colitis 89 years old woman with past medical history significant for renal complex cyst, essential hypertension, GERD and HFrEF (40-50% echo January 2025) on torsemide seen at [facility] on 03/04/25 complaining of multiple episodes of watery nonbloody diarrhea and nonbloody vomiting that started at 11:30 on 03/04/25. Pt reports she had lunch (Chicken with sauce from [employer]) on 03/03 at the [facility]. She woke up the next day and did not feel right (felt she was going to be sick) and did not eat yesterday. Around 11:30 am she had sudden onset of upper abdominal pain with nausea, vomiting and diarrhea. (had vomiting and diarrhea at the same time). Pt complains of chills, fever and mild headache and denied palpitations, chest pain, shortness on breath, pain with urination. Pt reports wt loss of 20 to 25 lbs before she was treated for an infected renal cyst (she was treated with cefuroxime which she finished 2 months ago) She states she has been regaining the weight she lost. She takes methenamine to prevent UTI. She denied contact with ill people or recent travel history. She does not have history of C diff. Pt reports abdominal pain and diarrhea have resolved. Pt lives in her own apartment at [facility] living [facility] - is independent with her ADLs and still drives. (has 2 cargivers coming to her apartment twice a week) She denies tobacco smoking, alcohol abuse or illicit drug use. Patient was hospitalized at [facility] 09/30/2024 with a diagnosis of acute diarrhea and urinary tract infection. In reviewing that record the patient had watery diarrhea for 4 days with associated lower abdominal pain, nausea but no vomiting. She had no dysuria but urine culture was positive for Proteus mirabilis which was pansensitive. She was treated with ceftriaxone and discharged on oral antibiotics Pt had a negative colonoscopy in [address] Epps In the ED, she was found to have fever 102. There is mild tachycardia, tachypnea and soft blood pressure. Last blood pressure is 103/52. Labs showed no leukocytosis or lactic acidosis. There are no significant electrolyte imbalances. BUN is 29 and creatinine 1.04. Hemoglobin is 12.6 and platelets 186. LFTs and lipase are normal. Viral testing for COVID-19, influenza and RSV is negative. ED tx: NS 500 mL bolus, Zofran 4 mg IV, morphine 2 mg IV, acetaminophen 1 g IV, ceftriaxone 2 g IV 03/04/[address] SCAN SHOWED: Moderate diffuse mesenteric stranding most notably of the right lower quadrant, may represent enteritis/colitis. Small hiatal hernia. Markedly distended gallbladder, otherwise unremarkable. Correlate with NPO status. Redemonstration of large solid cystic left kidney lesion with interval decrease in size of the cystic component. Moderate distal descending and sigmoid colon diverticulosis without evidence of acute diverticulitis. Severe S shaped scoliosis of the thoracolumbar spine on degenerative basis. Review of Systems 2 Review of Systems: All 12 systems were reviewed and normal except as noted in HPI. 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 Mother Arthritis Son No problems noted. Daughter No problems noted. Brother No problems noted. Surgical History Surgical History Hx of colonoscopy History of esophagogastroduodenoscopy (EGD) History of intraocular lens implant Social History Social History Household Members: None Housing: Other Housing Other:: Supportive Housing. Do you presently have visiting nurse or other home services: Yes Alcohol intake: former Patient Tobacco Use Status: Never used Tobacco Tobacco use type: Cigarette e-Cigarette/Vaping Use: Never Used Second Hand Smoke Exposure: Yes Advance Directives Date on File: 03/11/24 service: No Current occupational status: retired Current occupation: Retired Cognitive needs: No Hearing needs: No Vision needs: Yes Meds Allergies Allergy/AdvReac Type Severity Reaction Status Date / Time No Known Allergies Allergy Verified 03/04/25 19:15 Active Medications: Current Medications Acetaminophen (Acetaminophen 325 Mg Tablet) 650 mg PO Q6H PRN PRN Reason: Pain, Mild 1-3,fever,headache Ascorbic Acid (Ascorbic Acid 500 Mg Tablet) 1,000 mg PO DAILY ON LICENSE OF [facility] Buspirone HCl (Buspirone Hcl 5 Mg Tablet) 7.5 mg PO BEDTIME ON LICENSE OF [facility] Calcium Carbonate (Calcium Carbonate 750 Mg Tab.Chew) 750 mg PO Q4H PRN PRN Reason: Heartburn Ceftriaxone Sodium (Ceftriaxone Sodium 1 Gm Vial) 1 gm IVPUSH Q24H ON LICENSE OF [facility] Last Admin: 03/05/25 11:11 Dose: 1 gm Cyanocobalamin (Cyanocobalamin (Vitamin B-12) 1,000 Mcg/Ml Vial) 1,000 mcg IM Q30D ON LICENSE OF [facility] Heparin Sodium (Porcine) (Heparin Sodium,Porcine 5,000 Unit/Ml Vial) 5,000 unit SUBCUT Q12H ON LICENSE OF [facility] Last Admin: 03/05/25 11:12 Dose: 5,000 unit Metronidazole (Flagyl) 500 mg in 100 mls @ 100 mls/hr IV Q8H ON LICENSE OF [facility] Last Infusion: 03/05/25 07:46 Dose: Infused Magnesium Hydroxide (Milk Of Magnesia 30 Ml Oral.Susp) 30 ml PO DAILY PRN PRN Reason: Constipation Melatonin (Melatonin 3 Mg Tablet) 6 mg PO BEDTIME PRN PRN Reason: Insomnia Morphine Sulfate (Morphine Sulfate 2 Mg/Ml Cartridge) 2 mg IVPUSH Q4H PRN; Protocol PRN Reason: Pain, Severe (Pain Scale 7-10) Omeprazole (Omeprazole 20 Mg Capsule.Dr) 20 mg PO DAILY@0630 ON LICENSE OF [facility] Primidone (Primidone 50 Mg Tablet) 100 mg PO BID ON LICENSE OF [facility] Propranolol HCl (Propranolol Hcl La 60 Mg Cap.Sa.24h) 60 mg PO DAILY PRN; Protocol PRN Reason: Tremor(S) Sodium Chloride (0.9 % Sodium Chloride Flush 3 Ml Syringe) 3 ml IVFLUSH QSHIFT ON LICENSE OF [facility] Last Admin: 03/05/25 07:46 Dose: 3 ml Torsemide (Torsemide 20 Mg Tablet) 5 mg PO DAILY PRN PRN Reason: pedal edema Vitamin D (Cholecalciferol (Vitamin D3) 25 Mcg Tablet) 25 mcg PO DAILY ON LICENSE OF [facility] Home Medications ?Medication ?Instructions ?Recorded ?Confirmed ?Last Taken ?Type denosumab 60 mg/mL subcutaneous 60 mg subcut [id number] 05/25/20 03/05/25 3 Months Ago History syringe (Prolia) ~12/04/24 cholecalciferol (vitamin D3) 25 25 mcg PO DAILY 03/05/25 03/04/25 History mcg (1,000 unit) tablet omeprazole 20 mg capsule,delayed 20 mg PO DAILY@0630 0 12/06/24 03/05/25 03/04/25 History release primidone 50 mg tablet 100 mg PO BID 12/06/2403/0503/04/25 History propranolol 60 mg capsule,24 60 mg PO DAILY PRN Tremor (S) 12/06/24 03/05/25 Unknown History hr,extended release torsemide 5 mg tablet 5 mg PO DAILY PRN pedal fiona a 03/05/25 03/05/25 Unknown History Physical Exam 2 Vital Signs: Vital Signs: Last Vital Signs Temp 98.7 F 03/05/25 10:28 Pulse 78 03/05/25 10:28 Resp 18 03/05/25 10:28 BP 117/55 L 03/05/25 10:28 Pulse Ox 99 03/05/25 10:28 O2 Del Method Room Air 03/05/25 10:28 BMI result Body Mass Index 21.2 Const: General: healthy appearing and no acute distress Nutritional Appearance: average body habitus Orientation/consciousness: patient oriented x3 Limitations: no limitations HEENT: Head: Yes normal to inspection Ears: hearing grossly normal bilaterally Eyes: Sclerae: sclerae normal Pupils: Equal, round and reactive pupils present Neck: Neck: Yes normal visual inspection Chest: Chest palpation & inspection: normal inspection of the chest Resp: Effort & Inspection: normal respiratory effort Auscultation: clear to auscultation bilaterally Cardio: Palpation: normal PMI Rate: regular rate Rhythm: regular rhythm Heart sounds: S1 normal heart sound present, S2 normal heart sound present and no murmurs GI: Palpation (GI): Soft to palpation, nontender and No hepatosplenomegaly present Auscultation: normal bowel sounds Rectal Exam - Female: deferred Skin: General skin exam: no rashes or lesions noted Neuro: General: patient oriented x3, gait normal and moves all extremities Cranial nerves: Yes Equal, round and reactive pupils present Psych: Appearance: grossly normal Mental Status: mental status grossly normal Results Labs 03/05/25 06:07 03/05/25 06:07 Labs: Short CBC 03/04/25 03/05/25 Range/Units 19:09 06:07 WBC 6.6 5.7 (4.8-10.8) X10*3/uL Hgb 12.6 D 10.1 L (12.0-16.0) g/dl Hct 38.0 31.6 L (37.0-47.0) % Plt Count 186 D 164 (160-400) X10*3/uL BMP 03/04/25 03/05/25 19:09 06:07 Sodium 139 140 Potassium 4.3 D 3.6 Chloride 108 110 H Carbon Dioxide 23 22 BUN 29 H 25 H Creatinine 1.04 0.75 Calcium 8.8 D 7.9 L D Liver Function 03/04/25 03/05/25 Range/Units 19:09 06:07 Total Bilirubin 0.3 0.2 (0.0-1.0) mg/dL AST 21 15 (5-31) U/L ALT 7 < 6 (0-31) U/L Alkaline Phosphatase 61 44 (39-117) U/L Albumin 4.3 3.2 L (3.5-5.0) g/dL Urine 03/05/25 Range/Units 07:09 Urine Color Yellow Urine Appearance Clear Urine pH 6.0 (5.0-9.0) Ur Specific [place] 1.025 (1.005-1.025) Urine Protein Trace (Neg-Trace) mg/dL Urine Glucose (UA) Negative (Negative) mg/dL Assessment and Plan (1) Acute gastroenteritis: Status: Acute Plan 89 years old woman with past medical history significant for renal complex cyst, essential hypertension, GERD and HFrEF (40-50% echo January 2025) on torsemide admitted to [facility] on 03/04/25 with multiple episodes of watery nonbloody diarrhea and nonbloody vomiting and fever. Patient reports resolution of abdominal pain diarrhea today. Symptoms are suggestive of acute gastroenteritis/self limited colitis which has resolved. Pt had a negative colonoscopy [place] [address] Epps 03/04/[address] SCAN SHOWED: Moderate diffuse mesenteric stranding most notably of the right lower quadrant, may represent enteritis/colitis. Small hiatal hernia. Markedly distended gallbladder, otherwise unremarkable. Correlate with NPO status. Redemonstration of large solid cystic left kidney lesion with interval decrease in size of the cystic component. Moderate distal descending and sigmoid colon diverticulosis without evidence of acute diverticulitis. Severe S shaped scoliosis of the thoracolumbar spine on degenerative basis. RECOMMENDATIONS: 1. Agree with IV antibiotics, antiemetics and PPI. 2. If she has recurrent diarrhea check C Diff and GI panel 3. If she continues to do well, pt can be discharged in the am and FU with Dr Bell as an outpatient. Procedures Date of Service Date of Service: 03/05/25
--- NOTE | 2025-03-05 14:11 | P.PNIM_ITS ---
Subjective Subjective Date of Service: 03/05/25 Interval History: colitis Review of Systems abd pain slightly improving no fever or chills Physical Exam 2 Vital Signs: Vital Signs: Last Vital Signs Temp 98.6 F 03/05/25 11:52 Pulse 81 03/05/25 11:52 Resp 16 03/05/25 11:52 BP 134/58 L 03/05/25 11:52 Pulse Ox 97 03/05/25 11:52 O2 Del Method Room Air 03/05/25 11:52 BMI result Body Mass Index 21.2 Constitutional - Awake and Alert, No apparent distress. Heart : rrr , s1s2 heard Lungs -air entry fair ,no rales or wheezing Abdomen-soft, lower abd pain , bs present , no rebound or guarding. Extremities - no calf tenderness bilaterally, no swelling Neurological - Alert & oriented x3. Moving all extremities spontaneously. Normal speech. Psychological - Appropriate affect Objective Data Active Medications Acetaminophen (Acetaminophen 325 Mg Tablet) 650 mg PO Q6H PRN PRN Reason: Pain, Mild 1-3,fever,headache Ascorbic Acid (Ascorbic Acid 500 Mg Tablet) 1,000 mg PO DAILY [facility] Buspirone HCl (Buspirone Hcl 5 Mg Tablet) 7.5 mg PO BEDTIME DAWNA Calcium Carbonate (Calcium Carbonate 750 Mg Tab.Chew) 750 mg PO Q4H PRN PRN Reason: Heartburn Ceftriaxone Sodium (Ceftriaxone Sodium 1 Gm Vial) 1 gm IVPUSH Q24H [facility] Last Admin: 03/05/25 11:11 Dose: 1 gm Documented By: JEREMI Comments: Patient in ED during scheduled administration. Arrived to unit at 1010. Cyanocobalamin (Cyanocobalamin (Vitamin B-12) 1,000 Mcg/Ml Vial) 1,000 mcg IM Q30D [facility] Heparin Sodium (Porcine) (Heparin Sodium,Porcine 5,000 Unit/Ml Vial) 5,000 unit SUBCUT Q12H [facility] Last Admin: 03/05/25 11:12 Dose: 5,000 unit Documented By: JEREMI Metronidazole (Flagyl) 500 mg in 100 mls @ 100 mls/hr IV Q8H [facility] Last Infusion: 03/05/25 07:46 Dose: Infused Documented By: JOSE Magnesium Hydroxide (Milk Of Magnesia 30 Ml Oral.Susp) 30 ml PO DAILY PRN PRN Reason: Constipation Melatonin (Melatonin 3 Mg Tablet) 6 mg PO BEDTIME PRN PRN Reason: Insomnia Morphine Sulfate (Morphine Sulfate 2 Mg/Ml Cartridge) 2 mg IVPUSH Q4H PRN; Protocol PRN Reason: Pain, Severe (Pain Scale 7-10) Omeprazole (Omeprazole 20 Mg Capsule.Dr) 20 mg PO DAILY@0630 [facility] Primidone (Primidone 50 Mg Tablet) 100 mg PO BID [facility] Propranolol HCl (Propranolol Hcl La 60 Mg Cap.Sa.24h) 60 mg PO DAILY PRN; Protocol PRN Reason: Tremor(S) Sodium Chloride (0.9 % Sodium Chloride Flush 3 Ml Syringe) 3 ml IVFLUSH QSHIFT [facility] Last Admin: 03/05/25 07:46 Dose: 3 ml Documented By: JOSE Torsemide (Torsemide 20 Mg Tablet) 5 mg PO DAILY PRN PRN Reason: pedal edema Vitamin D (Cholecalciferol (Vitamin D3) 25 Mcg Tablet) 25 mcg PO DAILY [facility] Labs 03/05/25 06:07 03/05/25 06:07 Labs: Laboratory Results - last 24 hr 03/04/25 03/04/25 03/05/25 19:09 19:35 06:07 MCV 95.2 98.1 H MCH 31.6 31.4 MCHC 33.2 32.0 RDW 13.7 13.9 Plt Count 186 D 164 MPV 10.2 11.1 Immature Gran % (Auto) 0.3 0.5 H Neut % (Auto) 93.0 H 81.5 H Lymph % (Auto) 4.5 L 11.6 L [place] % (Auto) 1.8 L 6.0 Eos % (Auto) 0.2 0.0 Baso % (Auto) 0.2 0.4 Lymph # (Auto) 0.3 L 0.7 L [place] # (Auto) 0.1 0.3 Eos # (Auto) 0.0 0.0 Baso # (Auto) 0.0 0.0 Abs Immat Gran (auto) 0.02 0.03 Absolute Neuts (auto) 6.2 4.7 Absolute Nucleated RBC 0.000 0.000 Nucleated RBC % (auto) 0.0 0.0 Smear Tech's Comments VERIFIED Anion Gap 12 12 Estim Creat Clear Calc 32.2 44.7 Estimated GFR 50 > 60 Random Glucose 120 H 99 Lactic Acid 1.2 Calcium 8.8 D 7.9 L D Magnesium 1.9 1.7 Total Bilirubin 0.3 0.2 AST 21 15 ALT 7 < 6 Alkaline Phosphatase 61 44 Total Protein 7.4 5.4 L Albumin 4.3 3.2 L Lipase 67 Urine Color Urine Appearance Urine pH Ur Specific [place] Urine Protein Urine Glucose (UA) Urine Ketones Urine Blood Urine Nitrite Ur Leukocyte Esterase Urine RBC Urine WBC Ur Squamous Epith Cells Urine Bacteria Hyaline Casts Influenza Type A (PCR) NEGATIVE Influenza Type B (PCR) NEGATIVE RSV RNA Qual (PCR) NEGATIVE SARS-CoV-2 RNA (RT-PCR) NEGATIVE 03/05/25 07:09 MCV MCH MCHC RDW Plt Count MPV Immature Gran % (Auto) Neut % (Auto) Lymph % (Auto) [place] % (Auto) Eos % (Auto) Baso % (Auto) Lymph # (Auto) [place] # (Auto) Eos # (Auto) Baso # (Auto) Abs Immat Gran (auto) Absolute Neuts (auto) Absolute Nucleated RBC Nucleated RBC % (auto) Smear Tech's Comments Anion Gap Estim Creat Clear Calc Estimated GFR Random Glucose Lactic Acid Calcium Magnesium Total Bilirubin AST ALT Alkaline Phosphatase Total Protein Albumin Lipase Urine Color Yellow Urine Appearance Clear Urine pH 6.0 Ur Specific [place] 1.025 Urine Protein Trace Urine Glucose (UA) Negative Urine Ketones Negative Urine Blood Trace H Urine Nitrite Negative Ur Leukocyte Esterase Negative Urine RBC 0-2 Urine WBC 0-5 Ur Squamous Epith Cells 0-2 Urine Bacteria None Seen Hyaline Casts 0-2 Influenza Type A (PCR) Influenza Type B (PCR) RSV RNA Qual (PCR) SARS-CoV-2 RNA (RT-PCR) Assessment and Plan (1) Acute gastroenteritis: Status: Acute Plan 89 y/o woman admitted with: Acute gastroenteritis and colitis, likely infectious, causing dehydration. No recent use of antibiotics. She takes methenamine (low C.diff risk). Admit to hospitalist service. Advance diet as tolerated. Gentle IV fluids. Symptomatic therapy with Zofran, Tylenol and morphine as needed. Continue empiric IV antibiotic therapy with ceftriaxone and Flagyl. Hold methenamine and torsemide -dehydration. Check GI panel. gi eval Tremors. Continue primidone and propranolol (soft BP). Essential hypertension. Hold lisinopril . HFrEF (40-50 % TTE January 2025). No acute findings of decompensation. Torsemide on hold due to dehydration. Left kidney large solid cystic lesion, decreasing in size. F/U as an outpatient by Dr. Matute. GERD. Continue omeprazole. DVT prophylaxis: Heparin Code status: Full ongoing need for acute gastroenteritis and colitis treatment with empiric IV antibiotic therapy and gentle IV hydration. Quality Stroke Does the patient have a stroke diagnosis?: No VTE Prior VTE?: No VTE Risk Level:: Medical - moderate - high VTE Device Contraindication: Treatment Not Indicated VTE Drug Contraindication: N/A - Med Ordered
[2025-03-06 03:45] VITALS: BP 134/63; PULSE 72; RESP 18; TEMP 36.8; O2SAT 97
[2025-03-06] MEDS: metroNIDAZOLE/NS 500 MG/100 ML PIGGYBACK 100 MG IV ×3 (06:07→22:03)
[2025-03-06 07:34] VITALS: BP 148/67; PULSE 77; RESP 16; TEMP 37.3; O2SAT 95
[2025-03-06] MEDS: 0.9 % Sodium Chloride Flush 3 ML SYRINGE IVFLUSH ×3 (09:26→20:59)
[2025-03-06 12:00] VITALS: BP 148/67; PULSE 84; RESP 16; TEMP 36.7; O2SAT 98
[2025-03-06 12:39] VITALS: BP 169/72; PULSE 89; O2SAT 96
[2025-03-06 15:20] VITALS: BP 122/74; PULSE 85; RESP 16; TEMP 36.4; O2SAT 97
--- NOTE | 2025-03-06 15:37 | HO.PM.IMPN ---
Subjective Subjective Date of Service: 03/06/25 Interval History: Possible acute gastroenteritis/ colitis Review of Systems Abdominal pain seems somewhat improving No nausea vomiting or diarrhea today. Generalized weak. Review of Systems: Yes all other systems are reviewed and are negative Physical Exam Vital Signs: Vital Signs: Last Vital Signs Temp 97.6 F 03/06/25 15:20 Pulse 85 03/06/25 15:20 Resp 16 03/06/25 15:20 BP 122/74 03/06/25 15:20 Pulse Ox 97 03/06/25 15:20 O2 Del Method Room Air 03/06/25 15:20 BMI result Body Mass Index 21.4 Appearance: Alert.? Oriented X3.? cvs: rrr, [id number] . res: clear to auscultation ,no rhonchii or wheezing abd: soft ,lower abd pain, bs present. ext pulses present , no cyanosis . neuro: axo3 , nonfocal. Objective Data Active Medications Acetaminophen (Acetaminophen 325 Mg Tablet) 650 mg PO Q6H PRN PRN Reason: Pain, Mild 1-3,fever,headache Last Admin: 03/06/25 09:36 Dose: 650 mg Documented By: SONA Ascorbic Acid (Ascorbic Acid 500 Mg Tablet) 1,000 mg PO DAILY [facility] Last Admin: 03/06/25 09:25 Dose: 1,000 mg Documented By: SONA Buspirone HCl (Buspirone Hcl 5 Mg Tablet) 7.5 mg PO BEDTIME [facility] Last Admin: 03/05/25 20:25 Dose: 7.5 mg Documented By: CASTILM Calcium Carbonate (Calcium Carbonate 750 Mg Tab.Chew) 750 mg PO Q4H PRN PRN Reason: Heartburn Ceftriaxone Sodium (Ceftriaxone Sodium 1 Gm Vial) 1 gm IVPUSH Q24H [facility] Last Admin: 03/06/25 09:26 Dose: 1 gm Documented By: SONA Cyanocobalamin (Cyanocobalamin (Vitamin B-12) 1,000 Mcg/Ml Vial) 1,000 mcg IM Q30D [facility] Heparin Sodium (Porcine) (Heparin Sodium,Porcine 5,000 Unit/Ml Vial) 5,000 unit SUBCUT Q12H [facility] Last Admin: 03/06/25 09:26 Dose: 5,000 unit Documented By: SONA Metronidazole (Flagyl) 500 mg in 100 mls @ 100 mls/hr IV Q8H [facility] Last Infusion: 03/06/25 15:35 Dose: Infused Documented By: SONA Magnesium Hydroxide (Milk Of Magnesia 30 Ml Oral.Susp) 30 ml PO DAILY PRN PRN Reason: Constipation Melatonin (Melatonin 3 Mg Tablet) 6 mg PO BEDTIME PRN PRN Reason: Insomnia Morphine Sulfate (Morphine Sulfate 2 Mg/Ml Cartridge) 2 mg IVPUSH Q4H PRN; Protocol PRN Reason: Pain, Severe (Pain Scale 7-10) Omeprazole (Omeprazole 20 Mg Capsule.Dr) 20 mg PO DAILY@0630 [facility] Last Admin: 03/06/25 06:07 Dose: 20 mg Documented By: CASTILM Primidone (Primidone 50 Mg Tablet) 100 mg PO BID [facility] Last Admin: 03/06/25 09:25 Dose: 100 mg Documented By: SONA Propranolol HCl (Propranolol Hcl La 60 Mg Cap.Sa.24h) 60 mg PO DAILY PRN; Protocol PRN Reason: Tremor(S) Sodium Chloride (0.9 % Sodium Chloride Flush 3 Ml Syringe) 3 ml IVFLUSH QSHIFT [facility] Last Admin: 03/06/25 14:26 Dose: 3 ml Documented By: SONA Torsemide (Torsemide 20 Mg Tablet) 5 mg PO DAILY PRN PRN Reason: pedal edema Vitamin D (Cholecalciferol (Vitamin D3) 25 Mcg Tablet) 25 mcg PO DAILY [facility] Last Admin: 03/06/25 09:25 Dose: 25 mcg Documented By: SONA Labs 03/05/25 06:07 03/05/25 06:07 Microbiology Microbiology Results: Microbiology 03/04/25 19:35 Blood Culture - Preliminary Blood - Venous No growth after 24 hours. 03/04/25 19:09 Blood Culture - Preliminary Blood - Venous No growth after 24 hours. Assessment and Plan (1) Colitis: Status: Acute Plan Acute gastroenteritis and colitis, likely infectious, causing dehydration. No recent use of antibiotics. She takes methenamine (low C.diff risk). Admit to hospitalist service. Advance diet as tolerated. Gentle IV fluids. Symptomatic therapy with Zofran, Tylenol and morphine as needed. Continue empiric IV antibiotic therapy with ceftriaxone and Flagyl. Hold methenamine and torsemide -dehydration. Check GI panel. gi eval Tremors. Continue primidone and propranolol (soft BP). Essential hypertension. Hold lisinopril . HFrEF (40-50 % TTE January 2025). No acute findings of decompensation. Torsemide on hold due to dehydration. Left kidney large solid cystic lesion, decreasing in size. F/U as an outpatient by Dr. Matute. GERD. Continue omeprazole. DVT prophylaxis: Heparin Code status: Full ongoing need for acute gastroenteritis and colitis treatment with empiric IV antibiotic therapy and gentle IV hydration. Quality Stroke Does the patient have a stroke diagnosis?: No VTE Prior VTE?: No VTE Risk Level:: Medical - moderate - high VTE Device Contraindication: Treatment Not Indicated VTE Drug Contraindication: N/A - Med Ordered
[2025-03-06 19:31] VITALS: BP 143/64; PULSE 81; RESP 18; TEMP 36.8; O2SAT 97
[2025-03-07] VITALS: BP 135/63; PULSE 83; RESP 16; TEMP 37.3; O2SAT 96
--- NOTE | 2025-03-07 01:37 | PC.NURSE ---
Addendum entered by Tonya Kaminski RN 03/07/25 04:26: Around 4am, pt c/o a pounding LOVE, to close to give prn Tylenol, Dr. Marroquin was notified. Original Note: Pt seen on bed alert and oriented, able to tolerate po, reports abd cramping but tolerating, seen with mushy yellow stool , in small amount , unable to collect sample as both was mixed with urine. Later c/o LOVE for not able to fall asleep, Tylenol 650 mg and Melatonin tabs given, able to rest after.
[2025-03-07 03:36] VITALS: BP 138/64; PULSE 83; RESP 83; TEMP 37.3; O2SAT 96
[2025-03-07] MEDS: metroNIDAZOLE/NS 500 MG/100 ML PIGGYBACK 100 MG IV (05:42)
[2025-03-07 07:55] VITALS: BP 134/63; PULSE 84; RESP 16; TEMP 37.1; O2SAT 97
[2025-03-07] MEDS: 0.9 % Sodium Chloride Flush 3 ML SYRINGE IVFLUSH (08:41)
[2025-03-07 08:45] LABS: MANUAL DIFF FLAG NO
[2025-03-07 08:47] LABS: Hematocrit 27.7 % (37.0-47.0); Hemoglobin 9.3 g/dl (12.0-16.0); Imm Gran Abs Auto 0.02 X10*3/uL (0.00-0.03); Imm Gran Pct Auto 0.6 % (0.0-0.4); Lymphocytes Absolute Auto 1.3 X10*3/uL (1.2-4.9); Mean Corpuscular HGB Conc 33.6 g/dl (31.0-35.0); Mean Corpuscular Hemoglobin 31.5 pg (27.0-33.0); Mean Corpuscular Volume 93.9 fL (80.0-98.0); NRBC Abs Auto 0.000 X10*3/uL (0.0-0.012); NRBC Pct Auto 0.0 /100WBC (0.0-0.2); Platelet Count 147 X10*3/uL (160-400); Red Blood Count 2.95 X10*6/uL (4.20-5.50); White Blood Count 3.6 X10*3/uL (4.8-10.8)
[2025-03-07 11:19] LABS: CDiff Gene PCR NEGATIVE (Negative)
--- NOTE | 2025-03-07 11:43 | MHC.CM.PN ---
PT CLEARED TO [facility] HOME TODAY, SHE HAS DECLINED [facility] STATING SHE HAD THEM UNTIL A WEEK AGO AND DOES NOT FEEL SHE NEEDS THEM AGAIN SHE ALSO REPORTS HER FAMILY IS ON VACATION, SO SHE WILL NEED [facility] TRANSPORT HOME
--- NOTE | 2025-03-07 11:50 | PM.DS ---
DS: Providers Provider Date of Service: 03/07/25 Date of admission: 03/04/25 21:48 Date of discharge: 03/07/25 Primary care physician: Magy Romero MD Consults: 03/05/25 08:46 Consult to Gastroenterology Routine Consulting Provider: Lissette Valentine Reason for consultation: Colitis revvurrent Has provider been notified: No 03/05/25 11:43 Consult to Wound Care Routine Reason for consultation: Rash to bilateral feet. Attending physician on discharge: Yovany Owusu Discharging clinician: Yovany Owusu DS: Diagnosis Discharge Diagnosis (1) Colitis: Status: Acute DS: Summary Hospital Course Hospital Course: HPI:89 years old woman with past medical history significant for renal complex cyst, essential hypertension, GERD and HFrEF (40-50% echo January 2025) on torsemide presents to the ED complaining of multiple events of watery nonbloody diarrhea and nonbloody vomiting that started today at 11:30. This happened after she ate lunch. She also have chills, fever and mild headache. She denied any palpitations, chest pain, shortness on breath, pain with urination and abdominal pain. She has not been taking antibiotics recently. She takes methenamine to prevent UTI. She denied contact with ill people or recent travel history. 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 Denied tobacco smoking, alcohol abuse or illicit drug use. In the ED, she was found to have fever 102. There is mild tachycardia, tachypnea and soft blood pressure. Last blood pressure is 103/52. Blood workup showed no leukocytosis or lactic acidosis. There are no significant electrolyte imbalances. BUN is 29 and creatinine 1.04. Hemoglobin is 12.6 and platelets 186. LFTs and lipase are normal. Viral testing for COVID-19, influenza and RSV is negative. Abdominal pelvis CT scan showed moderate diffuse mesenteric stranding most notable at the right lower quadrant may represent enteritis/colitis. It also showed a markedly dilated gallbladder otherwise unremarkable, redemonstration of large solid cystic left kidney lesion with interval decrease in size of the cystic component and moderate distal descending and sigmoid colon diverticulosis without acute diverticulitis. ED tx: NS 500 mL bolus, Zofran 4 mg IV, morphine 2 mg IV, acetaminophen 1 g IV, ceftriaxone 2 g IV Hospital course: Acute gastroenteritis and colitis, likely infectious, causing dehydration. No recent use of antibiotics. She takes methenamine (low C.diff risk). ct abd:Moderate diffuse mesenteric stranding most notably of the right lower quadrant, may represent enteritis/colitis(please see detailed report in the imaging section.) started on Gentle IV fluids, Zofran, Tylenol and morphine as needed. Continue empiric IV antibiotic therapy with ceftriaxone and Flagyl. Hold methenamine and torsemide -dehydration. With the above management and supportive care patient seems to be improved significantly, no abdominal pain, diarrhea resolved, tolerating diet. Patient also seen by GI CT scan are reviewed by GI: Recommended to switch to p.o. Augmentin upon discharge. Mild leukopenia and thrombocytopenia, anemia: Patient denies any gross bleeding or melena. Blood culture negative, Patient improved significantly. Possibly hemodilution also be contributing to above since patient has received fluid. Monitor CBC outpatient. Prerenal azotemia: Seems to be improving with hydration and p.o. intake, diarrhea also resolved. We will start lisinopril, hold torsemide for 1-2 more days. Encouraged for p.o. hydration and intake. Monitor BMP outpatient. Tremors. Continue primidone and propranolol (soft BP). Essential hypertension. Continue lisinopril . HFrEF (40-50 % TTE January 2025). No acute findings of decompensation. Torsemide on hold due to dehydration. Left kidney large solid cystic lesion, decreasing in size. F/U as an outpatient by Urology: Dr. Matute. Plan: Monitor CBC and BMP outpatient in 1 week. Complete course of antibiotics-Augmentin 875 mg p.o. b.i.d. for 3 days. Patient already completed 3 days of antibiotic. Mild leukopenia and thrombocytopenia: Monitor CBC outpatient. Patient does not have any melena or was bleeding. If any new complaints abdominal pain or diarrhea or fever-go to nearest emergency room for further evaluation. Follow-up with PCP and Dr. Matute outpatient. Above management discussed with the patient in detail length she understand and in agreement with the above plan, time spent 40 minute, all question answered, staff was present during conversation. Patient declined home services. Time Attestation Total time managing care of this patient today: 40 mintues. Discharge Coordination Time (in mins): 40 Quality: Safe Use of Opioids Does Pt have an Active Cancer Diagnosis on the Problem List?: No Quality: Stroke Does the patient have a stroke diagnosis?: No Physical Exam Vital Signs: Vital Signs: Last Vital Signs Temp 98.8 F 03/07/25 07:55 Pulse 84 03/07/25 07:55 Resp 16 03/07/25 07:55 BP 134/63 03/07/25 07:55 Pulse Ox 97 03/07/25 07:55 O2 Del Method Room Air 03/07/25 07:55 BMI result Body Mass Index 21.4 Appearance: Alert.? Oriented X3.? cvs: rrr, [id number] . res: clear to auscultation ,no rhonchii or wheezing abd: soft,nt,nd, bs present. ext pulses present , no cyanosis . neuro: axo3 , nonfocal. DS: Data Data Completed and Pending Completed studies during hospitalization [Text1]: Procedures Drainage of Left Kidney, Percutaneous Approach, Diagnostic (12/06/24) Labs on day of discharge: Laboratory Results - last 24 hr 03/07/25 03/07/25 08:31 09:59 WBC 3.6 L RBC 2.95 L Hgb 9.3 L Hct 27.7 L MCV 93.9 MCH 31.5 MCHC 33.6 RDW 13.5 Plt Count 147 L MPV 10.3 Immature Gran % (Auto) 0.6 H Neut % (Auto) 54.1 Lymph % (Auto) 36.0 [facility] % (Auto) 7.3 Eos % (Auto) 1.7 Baso % (Auto) 0.3 Lymph # (Auto) 1.3 [facility] # (Auto) 0.3 Eos # (Auto) 0.1 Baso # (Auto) 0.0 Abs Immat Gran (auto) 0.02 Absolute Neuts (auto) 1.9 L Absolute Nucleated RBC 0.000 Nucleated RBC % (auto) 0.0 C. difficile Tox B Gene NEGATIVE Preliminary micro results at discharge 03/04/25 19:35 Blood Culture - Preliminary Blood - Venous No growth after 48 hours. 03/04/25 19:09 Blood Culture - Preliminary Blood - Venous No growth after 48 hours. Imaging Chest x-ray: Radiologist's impression: ct abd: IMPRESSION: Moderate diffuse mesenteric stranding most notably of the right lower quadrant, may represent enteritis/colitis. Small hiatal hernia. Markedly distended gallbladder, otherwise unremarkable. Correlate with NPO status. Redemonstration of large solid cystic left kidney lesion with interval decrease in size of the cystic component. Moderate distal descending and sigmoid colon diverticulosis without evidence of acute diverticulitis. Severe S shaped scoliosis of the thoracolumbar spine on degenerative basis. Discharge Plan Discharge Anticipated Discharge Date/Time: 03/07/25 11:40 Patient Disposition: Home Health Service Discharge Diagnosis: Acute gastroenteritis/colitis. Referrals: Magy Romero MD [Primary Care Provider, Internal Medicine] - 1 Week Discharge Medications: New amoxicillin-pot clavulanate 875-125 mg Tablet 1 tab PO Q12H Qty: 6 0RF Continued (DME) miscellaneous medical supply Misc See Rx Instructions .Route Qty: 1 0RF Rx Instructions: Elevated toilet seat with handles lisinopril 2.5 mg tablet 2.5 mg PO DAILY Qty: 90 3RF cyanocobalamin (vitamin B-12) 1,000 mcg/mL solution 1,000 mcg IM Q4W Qty: 3 3RF Patient Comments: Due on Saturday12/07/24 acetaminophen-codeine 300-15 mg tablet 1 tab PO DAILY PRN (Reason: pain (scale score 7-10)) Qty: 10 0RF propranolol 60 mg capsule,extended release 24 hr 60 mg PO DAILY PRN (Reason: Tremor(S)) cholecalciferol (vitamin D3) 25 mcg (1,000 unit) Tablet 25 mcg PO DAILY primidone 50 mg tablet 100 mg PO BID omeprazole 20 mg capsule,delayed release(DR/EC) 20 mg PO DAILY@0630 Prolia 60 mg/mL syringe 60 mg subcut [id number] Patient Comments: Due on 12/14/24 ascorbic acid (vitamin C) 1,000 mg tablet 1 g PO DAILY 90 Days Qty: 90 1RF buspirone 7.5 mg tablet 7.5 mg PO BEDTIME Qty: 90 1RF Held torsemide 5 mg tablet 5 mg PO DAILY PRN (Reason: pedal edema) Hold Instructions: Resume on 03/10/25. methenamine hippurate 1 gram tablet 1 g PO DAILY 90 Days Qty: 90 1RF Hold Instructions: Resume on 03/10/25. Discharge Orders: Discharge Order (Routine); Ordered 03/07/25 Ordered By: Yovany Owusu Diet: Advance to usual diet Activity on Discharge: As tolerated Stand Alone Forms: Patient Portal Discharge page Print Language: Kazakh Other Ambulatory Orders: Basic Metabolic Panel (Routine) Timeframe: 1 Week Facility: [facility] [place] - Location: Laboratory Ordered By: Yovany Owusu Complete Blood Count no Diff (Routine) Timeframe: 1 Week Facility: [facility] [place] - Location: Laboratory Ordered By: Yovany Owusu Care Plan Goals: as below. Health Concerns: Monitor CBC and BMP outpatient in 1 week. Complete course of antibiotics-Augmentin 875 mg p.o. b.i.d. for 3 days. Patient already completed 3 days of antibiotic. Mild leukopenia and thrombocytopenia: Monitor CBC outpatient. Patient does not have any melena or was bleeding. If any new complaints abdominal pain or diarrhea or fever-go to nearest emergency room for further evaluation. Follow-up with PCP. Plan of Treatment: As above. Assessment: As above.
[2025-03-07 11:52] VITALS: BP 133/71; PULSE 85; RESP 16; TEMP 36.8; O2SAT 97
[2025-03-07 15:20] LABS: E. coli EAEC Not Detected (Not Detect.); E. coli EPEC Not Detected (Not Detect.); E. coli ETEC Not Detected (Not Detect.); E. coli STEC Not Detected (Not Detect.); Shigella sp./EIEC Not Detected (Not Detect.)
== END 2025-03-07 13:35 | disposition home health service (06) | DRG 392 ==
LOC: HO.ED 21:45 → HO.EDOVER 22:09 → HO.S3 03-05 09:23
PROVIDERS: Physician Assistant Medical; Admitting Provider Internal Medicine; Emergency Provider Emergency Medicine Emergency Medical Services; PCP Internal Medicine; Visit Provider Internal Medicine
DX: A09 Infectious gastroenteritis and colitis, unspecified (principal); I50.22 Chronic systolic (congestive) heart failure; I25.10 Atherosclerotic heart disease of native coronary artery without angina pectoris; E86.0 Dehydration; N28.1 Cyst of kidney, acquired; D64.9 Anemia, unspecified; D69.6 Thrombocytopenia, unspecified; K21.9 Gastro-esophageal reflux disease without esophagitis; R25.1 Tremor, unspecified; Z20.822 Contact with and (suspected) exposure to COVID-19; Z79.899 Other long term (current) drug therapy
CPT/HCPCS: 36415; 74176; 80053; 81001; 83605; 83690; 83735; 85025; 87040; 87493; 87507; 87637; 97162; 99285; J0131; J0696; J1644; J1836; J2270; J2405; J7120

== ENCOUNTER → 2025-03-04 18:53 | Outpatient (BNV) | payer MEDICARE, OTHER, SELFPAY | PROVIDERS: Emergency Provider Emergency Medicine Emergency Medical Services; PCP Internal Medicine; Visit Provider Student in an Organized Health Care Education/Training Program | DX: K57.30 Diverticulosis of large intestine without perforation or abscess without bleeding (principal) | CPT/HCPCS: 74176 ==

== ENCOUNTER → 2025-03-04 21:48 | Outpatient (BNV) | payer MEDICARE, OTHER, SELFPAY | PROVIDERS: Admitting Provider Internal Medicine; Emergency Provider Emergency Medicine Emergency Medical Services; PCP Internal Medicine; Visit Provider Internal Medicine | DX: K52.9 Noninfective gastroenteritis and colitis, unspecified (principal) | CPT/HCPCS: 99223; 99231; 99232 ==

== ENCOUNTER → 2025-03-04 21:48 | Outpatient (BNV) | payer MEDICARE, OTHER, SELFPAY | PROVIDERS: Admitting Provider Internal Medicine; Emergency Provider Emergency Medicine Emergency Medical Services; PCP Internal Medicine; Visit Provider Internal Medicine Gastroenterology | DX: K52.9 Noninfective gastroenteritis and colitis, unspecified (principal) | CPT/HCPCS: 99232 ==

== ENCOUNTER 2025-03-11 14:22 | Outpatient (AMB) | payer MEDICARE, OTHER, SELFPAY ==
--- OUTSIDE RECORDS SUMMARY | 2024-08-11 05:15 | XMS_ITS ---
Author Organization [facility] Address [address] [place] [address] Care Team Providers Care Diabetic Educator Name Role Phone Heather CONNORS, Magy Todd Primary Care Provider Un available Bruce Dorsey Unavailable [phone] Encounters Encounter Location Date Provider Diagnosis [address] [address] 08/11/2024 Bruce Dorsey Plan Of Treatment No Information Progress Notes * JACOBSJocelyn MDOB: [birth year] (89 yo F)Acc No.[id number]:08/11/2024 Progress Note Patient: Jocelyn HYDE Provider: Abdiaziz Dorsey DPM :1935 A ge:88 Y S ex:Female Date:08/11/2024 Address:[address] [place] [address] [address], [id number] Pcp:Louie [place] Subjective: * Chief Complaints: * [...] 10/12/2023 Generated for Printi ng/Faxing/eTransmitting on: 0 03/11/2025 03:12 PM EDT
--- NOTE | 2025-03-11 14:37 | AM.OFFVISNUR ---
Intake Visit Reasons: B-12 Allergies No Known Allergies Allergy (Verified 03/04/25 19:15) Nursing Note Pt came in today for Vitamin B12 injection to right deltoid. Pt tolerated well.. Office Meds cyanocobalamin (vitamin B-12) 1,000 mcg/mL injection solution Performing Provider: Magy Romero MD Performing Location: [facility] Administered by: Alva Wang on 03/11/25 14:39 Dose Route Admin Location Dispensed Lot Number Expiration Date [facility] Ring Rolling Machine Operator 1,000 mcg IM right deltoid 1 mL [id number] 04/14/26 46936-321-02 [employer] Total Dispensed Waste 1 mL 0 % Assessment & Plan Assessment & Plan Orders: Orders AMB Vitamin B12 Injection Patient Supplied Today E53.8 - Deficiency of other specified B group vitamins Coding
--- OUTSIDE RECORDS SUMMARY | 2025-03-11 15:10 | XMS_ITS | Continuity of Care Document ---
Author Name [facility] Organization [facility] Care Team Providers Care Central Office Worker Name Role Phone [facility] Unavailable Unavailable Medications Combined list of outpatient [...] ORAL, [employer] 100 ea. BOTTLE Active [id number] 4 2023 90 Pharmac y Data Transac tion Service Facilit y LISINOPRIL (lisinopril ), 2.5 MG, TABLET, ORAL, EXELAN PHARMACE, 500 ea. BOTTLE Active [id number] 4 2023 90 Pharmac y Data Transac tion Service Facilit y PRIMIDONE (PRIMIDONE) , 50 MG, TABLET, ORAL, AV FAZAL, 500 ea. BOTTLE Cancele d [id number] : 2023 0 Pharmac y Data Transac tion Service Facilit y Immunizations Combined list of available immunizations from the Department of Defense and Veterans Affairs facilities. Immunization Series Date Given Administered By Site Reaction Lot Number CVX Code Drug Structurer Status Comments Source COVID-19, mRNA, LNP-S, PF, 30 mcg/0.3 mL dose, susana-sucrose 2021 [employer] [place] (PFR) Not Given COVID-19, mRNA, LNP-S, PF, 30 mcg/0.3 mL dose, susana-sucr ose [facility] COVID-19, mRNA, LNP-S, PF, 30 mcg/0.3 mL dose 2020 [employer] [place] (PFR) Not Given COVID-19, mRNA, LNP-S, PF, 30 mcg/0.3 mL dose [facility] influenza, high-dose, quadrivalent 2020 BOGLI, () Not [...]
--- OUTSIDE RECORDS SUMMARY | 2025-03-11 15:12 | XMS_ITS | Patient Health Record ---
Author Organization [facility] Address [address] [place] [address] Care Team Providers Care Sandwich Machine Operator Name Role Phone Heather CONNORS, Magy Primary Care Provider Brian Tam Unavailable [phone] SALOMÓN CHAMPION Unavailable Unavailable Allergies Allergen (clinical [...] Problem Status W/U Status Risk Notes Problem 56275934 Cough (R05) Active confirmed Problem 240892123 Gastroesophageal reflux disease with esophagitis (K21.0) Active confirmed Problem 43991424 Erosive esophagi tis (K22.10) Active confirmed Problem 94606385 Constipation, unspecified constipation type (K59.00) Active confirmed Problem 70489218 Esophagitis (K20.9) Active confirmed Problem 05734674 Lower abdominal pain (R10.30) Active confirmed Plan Of Treatment Pending Test Test Name Order Date XR CHEST 2 VIEW PA & LAT 04/25/2021 Future Test Test Name Order Date UPPER GI ENDOSCOPY 11/13/2016 Insurance Providers Payer Name Payer Address Payer Phone Subscriber Number Group Number Insured Name Patient Relationship to Insured Coverage Start Date Coverage End Date MEDICARE OF [place] [address] [place] [address] [id number] JACOBS , HITESH Self - patient is the insured [employer] [address] [place] [address] [phone] [id number] FAHAD JACOBSIS Self - patient is the [...] Tremors Elevated cholesterol Degenerative joint disease Denies OK,DM,CVA,Lung disease,renal dise ase Surgical History Surgery Date(Month/Year) Cataracts/lens implants 10/2006
== END 2025-03-11 14:48 | disposition home or self-care (01) ==
LOC: HO.HMCC 14:22
PROVIDERS: PCP Internal Medicine; Visit Provider Internal Medicine
DX: E53.8 Deficiency of other specified B group vitamins (principal)

== ENCOUNTER → 2025-03-11 14:22 | Outpatient (BNVA) | payer MEDICARE, OTHER, SELFPAY | PROVIDERS: PCP Internal Medicine; Visit Provider Internal Medicine | DX: E53.8 Deficiency of other specified B group vitamins (principal) | CPT/HCPCS: 96372; J3420 ==

== ENCOUNTER 2025-03-15 12:40 | Outpatient (REF) | payer MEDICARE, OTHER, SELFPAY ==
--- OUTSIDE RECORDS SUMMARY | 2024-07-31 09:45 | XMS_ITS ---
Author Organization [facility] Address [address] [place] [address] Care Team Providers Care Concert Singer Name Role Phone Heathre CONNORS, Magy Todd Primary Care Provider Un available Bruce Dorsey Unavailable [phone] Encounters Encounter Location Date Provider Diagnosis [address] [address] 07/31/2024 Bruce Dorsey Plan Of Treatment No Information Progress Notes * JACOBSJocelyn MDOB: [birth year] (89 yo F)Acc No.[id number]:07/31/2024 Progress Note Patient: Jocelyn HYDE Provider: Abdiaziz Dorsey DPM :1935 A ge:88 Y S ex:Female Date:07/31/2024 Address:[address] [place] [address] [address], [id number] Pcp:Louie Anderson Subjective: * Chief Complaints: * [...] 10/01/2023 Generated for Printi ng/Faxing/eTransmitting on: 0 03/15/2025 01:22 PM EDT
--- OUTSIDE RECORDS SUMMARY | 2025-03-15 13:20 | XMS_ITS | Continuity of Care Document ---
Author Name [facility] Organization [facility] Care Team Providers Care Fire Investigator Name Role Phone [facility] Unavailable Unavailable Medications Combined list of outpatient [...] ORAL, [employer] 100 ea. BOTTLE Active [id number] 4 2023 90 Pharmac y Data Transac tion Service Facilit y LISINOPRIL (lisinopril ), 2.5 MG, TABLET, ORAL, EXELAN PHARMACE, 500 ea. BOTTLE Active [id number] 4 2023 90 Pharmac y Data Transac tion Service Facilit y PRIMIDONE (PRIMIDONE) , 50 MG, TABLET, ORAL, AV FAZAL, 500 ea. BOTTLE Cancele d [id number] : 2023 0 Pharmac y Data Transac tion Service Facilit y Immunizations Combined list of available immunizations from the Department of Defense and Veterans Affairs facilities. Immunization Series Date Given Administered By Site Reaction Lot Number CVX Code Drug H[place]man Status Comments Source COVID-19, mRNA, LNP-S, PF, 30 mcg/0.3 mL dose, susana-sucrose 2021 [employer] [place] (PFR) Not Given COVID-19, mRNA, LNP-S, PF, 30 mcg/0.3 mL dose, susana-sucr ose [facility] COVID-19, mRNA, LNP-S, PF, 30 mcg/0.3 mL dose 2020 [employer] [place] (PFR) Not Given COVID-19, mRNA, LNP-S, PF, 30 mcg/0.[address] [facility] influenza, high-dose, quadrivalent 2020 BOGLI, () Not [...]
--- OUTSIDE RECORDS SUMMARY | 2025-03-15 13:22 | XMS_ITS | Clinical Summary ---
Author Organization [facility] Address [address] [address] Phone Care Team Providers Care Internal Grinder Name Role Phone Magy Romero MD Primary Care Provider Allergies No known active allergies Medications busPIRone (BUSPAR) 7.5 MG tablet Take 1 tablet by mouth 2 (two) times a day. 12/08/2022 Active gabapentin (NEURONTIN) 100 MG capsule Take 100 mg by mouth 3 (three) times a day. 02/14/2023 Active lisinopril (PRINIVIL,ZESTRI L) 2.5 MG tablet Take 2.5 mg by mouth daily. 02/20/2023 Active omeprazole (PRILOSEC) 20 MG capsule Take 20 mg by mouth daily. 12/12/2022 Active primidone (MYSOLINE) 50 MG tablet Take 50 mg by mouth daily. 12/03/2022 Active rosuvastatin (CRESTOR) 10 MG tablet Take 10 mg by mouth daily. 12/26/2022 Active Social History Tobacco Use Types Packs/Day Years Used Date Smoking Tobacco: Never Smokeless Tobacco: Never Tobacco Cessation:Counseling Given: Not Answered Education Answer Date Recorded Are you interested in more education? Not on duc e 02/12/2023 Are you concerned about learning? Not on file 02/12/2023 No 02/12/2023 No 02/12/2023 Digital Access Answer Date Recorded No 02/12/2023 No 02/12/2023 Reliable internet access at home? Not on file 02/12/2023 Device with a working camera? Not on file Comments Unknown Sex and Gender Information Value Date Recorded Sex Assigned at Female 03/01/2023 10:22 AM EDT Legal Sex Female 2:17 PM EDT Gender Identity Female 03/01/2023 10:22 AM EDT Sexual Orientation Straight 03/01/2023 10 :22 AM EDT Last Filed Vital Signs Vital Sign Reading Time Taken Comments Blood Pressure 138/63 03/06/2023 1:36 PM EDT Pulse 65 03/06/2023 1:36 PM EDT Temperature 36.3 C (97.4 F) 03/06/2023 1:35 PM EDT Respiratory Rate 16 03/06/2023 1:30 PM EDT Oxygen Saturation 97% 03/06/2023 1:36 PM EDT Inhaled Oxygen Concentration - - Weight 63.5 kg (140 lb) 03/06/2023 1:30 PM EDT Height 165.1 cm (5' 5 ) 03/06/2023 1:30 PM EDT Body Mass Index 23.3 03/06/2023 1:30 PM EDT Plan of Treatment Health Maintenance Due Date Last Done Comments Adult Td,Tdap Booster 1936 DEPRESSION SCREENING 1948 PNEUMOCOCCAL VACCINES (50+ y ears) (1 of 1 - PCV) 1986 ZOSTER VACCINES (1 of 2) 1986 OSTEOPOROSIS SCREENING INITI AL (ONE-TIME) 2001 RSV VACCINE (1 - 1-dose 75+ series) 2011 COVID-19 VACCINE (1 - 2023-2 5 season) 2024 CREATININE LEVEL 10/08/2025 10/08/2024 POTASSIUM LEVEL 10/08/2025 10/08/2024 HEPATITIS A VACCINES Aged Out No long er eligible based on patient's age to complete this topic HIB VACCINES Aged Out No longer eligi ble based on patient's age to complete this topic MENINGOCOCCAL VACCINES (ACWY) Aged Out No longer eligible based on patient's age to complete this topic MENINGOCOCCAL VACCINES (B) Aged Out N o longer eligible based on patient's age to complete this topic Medical Devices Not on file Procedures Procedure Name Priority Date/Time Associated Diagnosis Comments COMPREHENSIVE METABOLIC PANEL Routine 10/08/2024 8:01 AM EST Constipation, unspecified constipation type from Last 3 Months or Most Recently Relevant to Health Maintenance Results * (ABNORMAL) Comprehensive metabolic panel (10/08/2024 8:01 AM EST) SODIUM 137 133 - 146 mmol/L [facility] POTASSIUM 4.3 3.3 - 5.1 mmol/L [facility] CHLORIDE 100 96 - 108 mmol/L [facility] CO2 26 21 - 35 mmol/L [facility] BUN 22(H) 6 - 19 mg/dL [facility] CREATININE 0.90 0.5 - 1.5 mg/dL [facility] GLUCOSE 107(H) 70 - 99 mg/dL [facility] ALBUMIN 2.9(L) 3.9 - 4.8 g/dL [facility] TOTAL PROTEIN 5.0(L) 6.5 - 8.0 g/dL [facility] CALCIUM 7.8(L) 8.4 - 10.3 mg/dL [facility] ALKALINE PHOSPHATASE 59 39 - 117 U/L [facility] TOTAL BILIRUBIN <0.2 0.0 - 1.2 mg/dL [facility] AST 29 0 - 37 U/L [facility] ALT 13 0 - 40 U/L [facility] GLOBULIN 2.1 1 - 4.8 g/dL [facility] EGFR 62 >59 mL/min/1.7 3m2 [facility] Comment:Estimated glomerular filtration rate calculated using the CKD-EPI refit equation. ANION GAP 15 10 - 20 mmol/L [facility] Blood 10/08/2024 8:01 AM EST 10/08/2024 10:51 AM EST us Ravi Rivera MD LAB BLOOD ORDERABLES Zara talley Result [facility] [address] [place] [address] from Last 3 Months or Most Recently Relevant to Health Maintenance Insurance MEDICARE PART A & B [employer] MEDICARE SUPPLEMENT [facility] MEDICARE PART A & B [employer] MEDICARE SUPPLEMENT [facility] B [facility]PP[facility] B [facility] SUPPLEMENT [facility] MEDICARE PART A & B [employer] MED[facility] SUPPLEMENT [facility] MEDICARE PART A & B [employer] MEDICARE SUPPLEMENT [facility] Care Teams Internal Grinder Relationship Specialty Start Date End Date Magy Romero MD PCP - General Internal Medicine 02/07/23 Additional Source Comments The information contained in this document represents components of the legal health record. It is not the complete legal health record.[facility]
--- OUTSIDE RECORDS SUMMARY | 2025-03-15 13:23 | XMS_ITS | Patient Health Record ---
Author Organization [facility] Address [address] [place] [address] Care Team Providers Care Tilting Saw Operator Name Role Phone Heather CONNORS, Magy Primary Care Provider Brian Tam Unavailable [phone] SALOMÓN CHAMPION Unavailable Unavailable Allergies Allergen (clinical [...] Problem Status W/U Status Risk Notes Problem [id number] Cough (R05) Active confirmed Problem 638708051 Gastroesophageal reflux disease with esophagitis (K21.0) Active confirmed Problem 91390205 Erosive esophagi tis (K22.10) Active confirmed Problem 33972475 Constipation, unspecified constipation type (K59.00) Active confirmed Problem 88263032 Esophagitis (K20.9) Active confirmed Problem 42935174 Lower abdominal pain (R10.30) Active confirmed Plan Of Treatment Pending Test Test Name Order Date XR CHEST 2 VIEW PA & LAT 04/25/2021 Future Test Test Name Order Date UPPER GI ENDOSCOPY 11/13/2016 Insurance Providers Payer Name Payer Address Payer Phone Subscriber Number Group Number Insured Name Patient Relationship to Insured Coverage Start Date Coverage End Date MED[place]ARE OF [place] [address] [place] [address] [id number] JACOBS , HITESH Self - patient is the insured [employer] [address] [place] [address] [id number] FAHAD JACOBSIS Self - patient is the [...]
[2025-03-15 16:24] LABS: Hematocrit 32.1 % (37.0-47.0); Hemoglobin 10.3 g/dl (12.0-16.0); Mean Corpuscular HGB Conc 32.1 g/dl (31.0-35.0); Mean Corpuscular Hemoglobin 31.7 pg (27.0-33.0); Mean Corpuscular Volume 98.8 fL (80.0-98.0); NRBC Abs Auto 0.000 X10*3/uL (0.0-0.012); NRBC Pct Auto 0.0 /100WBC (0.0-0.2); Platelet Count 245 X10*3/uL (160-400); Red Blood Count 3.25 X10*6/uL (4.20-5.50); White Blood Count 6.2 X10*3/uL (4.8-10.8)
[2025-03-15 16:32] LABS: Anion Gap 13 (12-20); Blood Urea Nitrogen 16 mg/dL (9-16); Calcium 8.5 mg/dL (8.4-10.2); Carbon Dioxide 28 mmol/L (22-29); Chloride 104 mmol/L (96-108); Estimated Glomerular Filt Rate > 60; Potassium 3.5 mmol/L (3.3-5.1); Sodium 141 mmol/L (135-145)
== END 2025-03-15 12:41 | disposition home or self-care (01) ==
LOC: HO.HMGCLDS 12:40
PROVIDERS: PCP Internal Medicine; Visit Provider Internal Medicine
DX: R79.89 Other specified abnormal findings of blood chemistry (principal); D72.819 Decreased white blood cell count, unspecified; K52.9 Noninfective gastroenteritis and colitis, unspecified; D69.6 Thrombocytopenia, unspecified
CPT/HCPCS: 36415; 80048; 85027

== ENCOUNTER 2025-03-18 12:40 | Outpatient (AMB) | payer MEDICARE, OTHER, MEDICAID, SELFPAY ==
--- OUTSIDE RECORDS SUMMARY | 2024-08-11 05:15 | XMS_ITS ---
Author Organization [facility] Address [address] [place] [address] Care Team Providers Care Manager Of Supply Chain Name Role Phone Heather CONNORS, Magy Todd Primary Care Provider Un available Bruce Dorsey Unavailable [phone] Encounters Encounter Location Date Provider Diagnosis [address] [address] 08/11/2024 Bruce Dorsey Plan Of Treatment No Information Progress Notes * JACOBSJocelyn MDOB: [birth year] (89 yo F)Acc No.[id number]:08/11/2024 Progress Note Patient: Jocelyn HYDE Provider: Abdiaziz Dorsey DPM :1935 A ge:88 Y S ex:Female Date:08/11/2024 Address:[address] [place] [address] [address], [id number] Pcp:Louie [place] Subjective: * Chief Complaints: * [...] Date: 10/12/2023 Generated for Printi ng/Faxing/eTransmitting on: 0 03/18/2025 12:58 PM EDT
--- NOTE | 2025-03-18 12:50 | MHC.PC.OV ---
Vital Signs 03/18/25 12:54 Height 5 ft 4 in Weight 121 lb BMI 20.8 BP 138/82 Blood Pressure Location Lt brachial Position Sitting Respiration 16 Pulse 95 Pulse Source Pulse Oximeter Temp 97.8 F Temp Source Oral Pulse Oximetry (%) 98 Oxygen Delivery Method Room Air Intake Visit Reasons: TCM Intake Note: Pt is here for TCM . Operations Officer Required: No Accompanied by: Self / Same As Patient Allergies No Known Allergies Allergy (Verified 03/18/25 12:56) Medication List - Last Reconciled 03/18/25 by Magy Romero MD acetaminophen-codeine 300-15 mg 1 tab PO DAILY PRN ascorbic acid (vitamin C) 1 g PO DAILY 90 days buspirone 7.5 mg PO BEDTIME cholecalciferol (vitamin D3) 25 mcg PO DAILY cyanocobalamin (vitamin B-12) 1,000 mcg IM Q4W denosumab (Prolia) 60 mg subcut [id number] furosemide 20 mg PO QAM PRN lisinopril 2.5 mg PO DAILY methenamine hippurate 1 g PO DAILY 90 days Held on 03/07/25. Instructions: Resume on 03/10/25. miscellaneous medical supply Elevated toilet seat with handles omeprazole 20 mg PO DAILY@0630 primidone 100 mg PO BID propranolol ER 60 mg PO DAILY PRN torsemide 5 mg PO DAILY PRN Held on 03/07/25. Instructions: Resume on 03/10/25. Tobacco use date assessed: 12/17/24 Fall risk assessment: No Falls in past year Last assessed Fall Risk: 03/18/25 Dental Screening Dental Screen Date: 11/05/24 Did you have a dental visit in the last 12 months?: No Did you have a dental problem in the last 6 months where you did not have access to dental care?: No Was dental information given to patient?: Patient declined HPI TCM HPI Details 89 years old woman with past medical history significant for renal complex cyst, essential hypertension, GERD and HFrEF (40-50% echo January 2025) on torsemide here for TCM visit. She presented to the ED 03/07/2025 with complaints of multiple events of watery nonbloody diarrhea and nonbloody vomiting accompanied by fever, intermittent palpitations, and abdominal and admitted and treated for acute gastroenteritis, colitis with dehydration Labs showed no leukocytosis or lactic acidosis, no significant electrolyte imbalances. BUN is 29 and creatinine 1.04. Hemoglobin is 12.6 and platelets 186. LFTs and lipase are normal. Viral testing for COVID-19, influenza and RSV is negative. Abdominal pelvis CT scan showed moderate diffuse mesenteric stranding most notable at the right lower quadrant may represent enteritis/colitis, a markedly dilated gallbladder , and redemonstration of large solid cystic left kidney lesion with interval decrease in size of the cystic component , and moderate distal descending and sigmoid colon diverticulosis without acute diverticulitis. She was given IV hydration, and empiric IV antibiotic therapy with ceftriaxone and Flagyl. Her methenamine and torsemide were held due to presence of dehydration. Patient improved significantly, with abdominal pain, diarrhea resolving, was able to tolerate p.o. diet. She was seen by GI who recommended switching to oral Augmentin upon discharge. She was started on lisinopril, and torsemide was held, continued on primidone and propranolol for her tremors With regards to her Left kidney large solid cystic lesion, decreasing in size. , she was advised to F/U as an outpatient with Urology, Dr. Matute. She is here today accompanied by her friend, states that she is feeling much better but still having recurrent swelling in her ankles. , worse towards the end of the day. She has just been taking furosemide instead of torsemide which she states has not really been as effective in she has been taking furosemide instead of torsemide which she states has not really been as affected with decreasing the swelling in her ankles. Swelling improves when she elevates her legs. Complains of recurrent back pain due to lumbar spinal stenosis, Tylenol does not afforded much relief, would like to see if she can get a prescription for short course of Tylenol with codeine which she states has helped in the past and does not to take it only as needed for severe pain. Repeat complete blood count and basic metabolic panel showed mild anemia, with no leukocytosis, serum electrolytes, renal function are now within normal limits. She has already completed taking her Augmentin prescription and states that is due is now starting to become formed, denies any abdominal pain, no nausea or fever. Appetite has improved TCM TCM Information Date of Discharge 03/07/25 Discharged From [facility] Interactive Contact Date (Reference documentation from this date) 03/08/25 [facility] Medical History Benign essential tremor Migraine Sepsis Fever Colitis Colitis Pedal edema Macrocytic anemia Chronic anemia Varicose vein of leg History of constipation Altered bowel habits COVID-19 Vitamin B12 deficiency Osteoarthritis, hip, bilateral Dextroscoliosis of thoracolumbar spine Facial skin lesion Generalized anxiety disorder Dyspnea on exertion Left bundle branch block Chronic right hip pain Acquired renal cyst of left kidney 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 Mother Arthritis Son No problems noted. Daughter No problems noted. Brother No problems noted. Social History Household Members: None Housing: Other Housing Other:: Supportive Housing. Do you presently have visiting nurse or other home services: Yes Alcohol intake: former Patient Tobacco Use Status: Never used Tobacco Tobacco use type: Cigarette e-Cigarette/Vaping Use: Never Used Second Hand Smoke Exposure: Yes Advance Directives Date on File: 03/11/24 service: No Current occupational status: retired Current occupation: Retired Cognitive needs: No Hearing needs: No Vision needs: Yes Questionnaire PHQ-9 Over the last 2 weeks, how often have you been bothered by any of the following problems? 1. Little interest or pleasure in doing things: not at all 2. Feeling down, depressed, or hopeless: not at all 3. Trouble falling or staying asleep, or sleeping too much: not at all 4. Feeling tired or having little energy: several days 5. Poor appetite or overeating: more than half the days 6. Feeling bad about yourself - or that you are a failure or have let yourself or your family down: more than half the days 7. Trouble concentrating on things, such as reading the newspaper or watching television: more than half the days 8. Moving or speaking so slowly that other people could have noticed. Or the opposite - being so fidgety or restless that you have been moving around a lot more than usual: more than half the days 9. Thoughts that you would be better off or of hurting yourself in some way: not at all Total score: 9 Depression Screening Interpretation: Positive (Controlled on buspirone) Depression Screening Follow-up: Existing condition and In treatment Depression Screening Done: Yes 98039 - PHQ-9 Billing: Yes Source: Developed by Drs. Brian Gomez, Peg Reyez, John Saucedo and colleagues, with an educational tati from [employer]. Thrive Questionnaire Date Thrive assessed: 08/31/24 I am a: Patient What is your living situation today?: I choose not to answer this question Within the past 12 months, did the food you bought not last and you didn't have the money to get more?: I choose not to answer this question Within the past 12 months, did you worry whether your food would run out before you got money to buy more?: I choose not to answer this question Do you have trouble paying for medicines?: I choose not to answer this question Do you have trouble getting transportation to medical appointments?: I choose not to answer this question Do you have trouble paying your heating and electricity bill?: I choose not to answer this question Do you have trouble taking care of your child, family member or friend?: I choose not to answer this question Do you have trouble with day-to-day activities such as bathing, preparing meals, shopping, managing finances, etc.?: I choose not to answer this question Are you currently unemployed and looking for a job?: I choose not to answer this question Are you interested in more education?: I choose not to answer this question Please select the resources that you would like help with: None Currently or been in a relationship where the following occur: I choose not to answer THRIVE Score: 0 MICHAEL-7 AMB Questionnaire MICHAEL-7 Date MICHAEL - 7 assessed: 03/18/25 Feeling nervous, anxious, or on edge: 0 = Not at all Not being able to stop or control worryin = Not at all Worrying too much about different things: 0 = Not at all Trouble relaxin = Not at all Being so restless that it is hard to sit still: 0 = Not at all Becoming easily annoyed or irritable: 0 = Not at all Feeling afraid as if something awful might happen: 0 = Not at all Total MICHAEL-7 score (0-4 normal; 5-9 mild; 10-14 moderate; 15-21 severe): 0 Source: Developed by Drs. Brian Gomez, Peg Reyez, John Saucedo and colleagues, with an educational tati from [employer]. MICHAEL-7 Assessment Billing MICHAEL-7 Assessment Tool: MICHAEL-7 Assessment 52991 Review of Systems Const All systems reviewed & are unremarkable except as noted in HPI and below Eyes Reports no additional complaints ENT Denies dizziness Card Denies chest pain, Denies chest pain at rest, Denies chest pain with activity, Denies dyspnea and Denies dyspnea on exertion Resp Denies cough, Denies dyspnea and Denies dyspnea on exertion GI Reports as per HPI and Reports no additional complaints Reports no additional complaints Musc Reports as per HPI Neuro Denies dizziness and Denies Sensory deficit (Neuro) Psych Reports no additional complaints Endo Reports no additional complaints Naif/Lymph Reports no additional complaints Aller/Immun Reports no additional complaints Physical exam (Primary Care) Vital Signs: Last Vital Signs Temp 97.8 F 03/18/25 12:54 Pulse 95 03/18/25 12:54 Resp 16 03/18/25 12:54 BP 138/82 03/18/25 12:54 Pulse Ox 98 03/18/25 12:54 Oxygen Delivery Method Room Air 03/18/25 12:54 BMI result Body Mass Index 20.8 Tobacco/Smoking Status: Tobacco use Status Tobacco use date assessed 12/17/24 03/18/25 12:51 Patient Tobacco Use Status Never used Tobacco 03/18/25 12:51 Tobacco use type Cigarette 03/18/25 12:51 e-Cigarette/Vaping Use Never Used 03/18/25 12:51 PHQ-9: PHQ-9 Score PHQ-9: Total score 9 03/20/25 02:38 Depression Screening Interpretation: Positive (Controlled on buspirone) Depression Screening Follow-up: Existing condition and In treatment Thrive Assessment: Date of Thrive Assessment Date Thrive assessed 08/31/24 03/18/25 12:51 Currently or been in a relationship where the following occur: I choose not to answer Const General: no acute distress Orientation/consciousness: patient oriented x3 Limitations: ambulation with cane HENMT Head: Yes normocephalic Ears: external ears normal General nose exam: Normal external nose present Face and sinus: Yes face symmetric Mouth: Normal oral and palatal mucosa present and moist mucous membranes Eyes General: appearance normal, both eyes and all related structures Neck Neck: Yes full ROM, Yes no lymphadenopathy and Yes supple Resp Auscultation: clear to auscultation bilaterally Cardio Rate: regular rate Rhythm: regular rhythm Heart sounds: S1 normal heart sound present and S2 normal heart sound present Peripheral pulses: popliteal pulses present and dorsalis pedis present GI Palpation (GI): Soft to palpation, nontender and no guarding Back/Spine/Pelvis Other: , kyphotic posture, Slight tenderness on palpation over left flank where she had her biopsy done Skin General skin exam: no rashes or lesions noted Neuro General: patient oriented x3, gait normal and Normal light touch and pain sensation Sensory Exam: No Sensory deficit (Neuro) Extrem Other: Mild ankle edema noted bilateral, varicosities noted in both lower extremities General: Yes no calf tenderness Psych Appearance: grossly normal and well kempt Mental Status: mental status grossly normal Speech and movement: Normal speech and movement present Affect: normal affect Results Reviewed Results Reviewed: Name: Jocelyn Mejia Age/Sex: 89/F : 1935 Unit#: [id number] Attend Dr: Yovany Owusu MD Re03/15/25 Status: DEP REF Location: [facility] Disch: SPEC : [id number] TAYLOR: 03/15/25 STATUS: COMP REQ : [id number] RECD: 03/15/[address]: Yovany Owusu MD COMP: 03/15/25 ENTERED: 03/15/[address]: Magy Romero MD ORDERED: CBC No Diff Test Result Flag Reference WBC 6.2 4.8-10.8 X10*3/uL RBC 3.25 L 4.20-5.50 X10*6/uL HGB 10.3 L 12.0-16.0 g/dl HCT 32.1 L 37.0-47.0 % MCV 98.8 H 80.0-98.0 fL MCH 31.7 27.0-33.0 pg MCHC 32.1 31.0-35.0 g/dl RDW 14.2 11.0-16.0 % PLT 245 # 160-400 X10*3/uL MPV 11.2 9.4-12.3 fL NRBC Pct Auto 0.0 0.0-0.2 /100WBC NRBC Abs Auto 0.000 0.0-0.012 X10*3/uL Name: Jocelyn Mejia Age/Sex: 89/F : 1935 Unit#: [id number] Attend Dr: Yovany Owusu MD Re03/15/25 Status: DEP REF Location: [facility] Disch: SPEC : [id number] TAYLOR: 03/15/25-1300 STATUS: COMP REQ : [id number] RECD: 03/15/25-[address]: Yovany Owusu MD COMP: 03/15/25-1632 ENTERED: 03/15/25-[address]: Magy Romero MD ORDERED: BMP Test Result Flag Reference Sodium 141 135-145 mmol/L Potassium 3.5 3.3-5.1 mmol/L CL 104 96-108 mmol/L CO2 28 22-29 mmol/L Gap 13 12-20 BUN 16 9-16 mg/dL Creat 0.79 0.5-1.4 mg/dL eGFR > 60 Chronic Kidney Disease: Estimated GFR < 60 mL/min/1.73m2 Severe Kidney Disease: Estimated GFR < 15 mL/min/1.73m2 Glucose, Random 123 H 60-115 mg/dL CA 8.5 # 8.4-10.2 mg/dL Coding Level of Care Code Est Pt Level 4 (52473) Diagnoses Essential hypertension I10 Spinal stenosis of lumbar region at multiple levels M48.061 Varicose veins of both lower extremities, unspecified whether complicated I83.93 Varicose vein complication: unspecified Laterality: bilateral History of colitis Z87.19 Additional Codes MCIHAEL-7 Assessment Billing - MICHAEL-7 Assessment Tool: MICHAEL-7 Assessment 74671 ([id number]) PHQ-9 - 25251 - PHQ-9 Billing: Yes ([id number]) Assessment & Plan Assessment & Plan (1) Essential hypertension: Code(s): I10 - Essential (primary) hypertension Category: Medical Plan: Blood pressure at goal of less than 130/80. Continue with lisinopril 2.5 mg daily and is on propranolol ER 60 mg once a day Reinforced importance of following a low sodium diet, getting regular exercise, and lowering stress levels. (2) Spinal stenosis of lumbar region at multiple levels: Code(s): M48.061 - Spinal stenosis, lumbar region without neurogenic claudication Category: Medical Plan: Prescription sent for acetaminophen-codeine 300-15 mg tab per tablet, to take 1 tablet once or twice a day only as needed for severe pain. Patient cautioned about potential to be addictive, and may cause lightheadedness. (3) Varicose vein of leg: Code(s): I83.90 - Asymptomatic varicose veins of unspecified lower extremity Category: Medical Qualifiers: Varicose vein complication: unspecified Laterality: bilateral Qualified Code(s): I83.93 - Asymptomatic varicose veins of bilateral lower extremities Plan: Elevate legs as much as possible. Advised to try wearing travel socks when during the day and remove it at night before going to bed prescription was given for torsemide 5 mg to take only as needed for unresolved swelling in both lower extremities with conservative measures. Furosemide discontinued (4) History of colitis: Code(s): Z87.19 - Personal history of other diseases of the digestive system Plan: Resolved, already completed Augmentin prescription Medications: New torsemide 5 mg PO QAM PRN 30 tabs 0RF leg swelling Changed From cyanocobalamin (vitamin B-12) 1,000 mcg IM Q4W 3 mL 3RF To cyanocobalamin (vitamin B-12) 1,000 mcg IM Q4W 4 mL 3RF 3 months Refilled acetaminophen-codeine 300-15 mg 1 tab PO DAILY PRN 10 tabs 0RF pain (scale score 7-10) I10 - Essential (primary) hypertension, I83.90 - Asymptomatic varicose veins of unspecified lower extremity, M48.061 - Spinal stenosis, lumbar region without neurogenic claudication Discontinued furosemide Discontinued Reason: Doctor's Order 20 mg PO QAM PRN 14 tabs 0RF edema
[2025-03-18 12:54] VITALS: BP 138/82; PULSE 95; RESP 16; TEMP 36.6; O2SAT 98; BMI 20.8
--- OUTSIDE RECORDS SUMMARY | 2025-03-18 12:57 | XMS_ITS | Continuity of Care Document ---
Author Name [facility] Organization [facility] Care Team Providers Care Post Splitter Name Role Phone [facility] Unavailable Unavailable Medications Combined list of outpatient [...] ORAL, [employer] 100 ea. BOTTLE Active [id number] 4 2023 90 Pharmac y Data Transac tion Service Facilit y LISINOPRIL (lisinopril ), 2.5 MG, TABLET, ORAL, EXELAN PHARMACE, 500 ea. BOTTLE Active [id number] 4 2023 90 Pharmac y Data Transac tion Service Facilit y PRIMIDONE (PRIMIDONE) , 50 MG, TABLET, ORAL, AV FAZAL, 500 ea. BOTTLE Cancele d [id number] : 2023 0 Pharmac y Data Transac tion Service Facilit y Immunizations Combined list of available immunizations from the Department of Defense and Veterans Affairs facilities. Immunization Series Date Given Administered By Site Reaction Lot Number CVX Code Drug Principal Data Architect Status Comments Source COVID-19, mRNA, LNP-S, PF, 30 mcg/0.3 mL dose, susana-sucrose 2021 [employer] (PFR) Not Given COVID-19, mRNA, LNP-S, PF, 30 mcg/0.3 mL dose, susana-sucr ose [facility] COVID-19, mRNA, LNP-S, PF, 30 mcg/0.3 mL dose 2020 [employer] (PFR) Not Given COVID-19, mRNA, LNP-S, PF, 30 mcg/0.[address] [facility] influenza, high-dose, quadrivalent 2020 BOGLI, () Not [...]
--- OUTSIDE RECORDS SUMMARY | 2025-03-18 12:58 | XMS_ITS | Patient Health Record ---
Author Organization [facility] Address [address] [place] [address] Care Team Providers Care Print Cutter Name Role Phone Heather CONNORS, Magy Primary Care Provider Brian Tam Unavailable [phone] SALOMÓN CHAMPION Unavailable Unavailable Allergies Allergen (clinical [...] Problem Status W/U Status Risk Notes Problem 30714387 Cough (R05) Active confirmed Problem 839620878 Gastroesophageal reflux disease with esophagitis (K21.0) Active confirmed Problem 19626425 Erosive esophagi tis (K22.10) Active confirmed Problem 84529760 Constipation, unspecified constipation type (K59.00) Active confirmed Problem 19097414 Esophagitis (K20.9) Active confirmed Problem 49770154 Lower abdominal pain (R10.30) Active confirmed Plan Of Treatment Pending Test Test Name Order Date XR CHEST 2 VIEW PA & LAT 04/25/2021 Future Test Test Name Order Date UPPER GI ENDOSCOPY 11/13/2016 Insurance Providers Payer Name Payer Address Payer Phone Subscriber Number Group Number Insured Name Patient Relationship to Insured Coverage Start Date Coverage End Date MEDICARE OF [place] [address] [facility] [place] [address] [id number] JACOBS , HITESH Self - patient is the insured [employer] [address] [place] [address] [phone] [id number] FAHAD JACOBSIS Self - patient is the [...] Tremors Elevated cholesterol Degenerative joint disease Denies [place],DM,CVA,Lung disease,renal dise ase Surgical History Surgery Date(Month/Year) Cataracts/lens implants 10/2006
--- OUTSIDE RECORDS SUMMARY | 2025-03-18 12:58 | XMS_ITS | Clinical Summary ---
Author Organization [facility] Address [address] [address] Phone Care Team Providers Care Blanking Machine Operator Name Role Phone Magy Romero MD Primary [...] EST) SODIUM 137 133 - 146 mmol/L [facility] POTASSIUM 4.3 3.3 - 5.1 mmol/L [facility] CHLORIDE 100 96 - 108 mmol/L [facility] CO2 26 21 - 35 mmol/L [facility] BUN 22(H) 6 - 19 mg/dL [facility] CREATININE 0.90 0.5 - 1.5 mg/dL [facility] GLUCOSE 107(H) 70 - 99 mg/dL [facility] ALBUMIN 2.9(L) 3.9 - 4.8 g/dL [facility] TOTAL PROTEIN 5.0(L) 6.5 - 8.0 g/dL [facility] CALCIUM 7.8(L) 8.4 - 10.3 mg/dL [facility] ALKALINE PHOSPHATASE 59 39 - 117 U/L [facility] TOTAL BILIRUBIN <0.2 0.0 - 1.2 mg/dL [facility] AST 29 0 - 37 U/L [facility] ALT 13 0 - 40 U/L [facility] GLOBULIN 2.1 1 - 4.8 g/dL [facility] EGFR 62 >59 mL/min/1.7 3m2 [facility] Comment:Estimated glomerular filtration rate calculated using the CKD-EPI refit equation. ANION GAP 15 10 - 20 mmol/L [facility] Blood 10/08/2024 8:01 AM EST 10/08/2024 10:51 AM EST us Ravi Rivera MD LAB BLOOD ORDERABLES Zara talley Result [facility] [address] [place] [address] from Last 3 Months or Most Recently Relevant to Health Maintenance Insurance MEDICARE PART A & B [facility] MEDICARE SUPPLEMENT [facility] MEDICARE PART A & B [facility] [employer] MEDICARE SUPPLE[facility]PP[facility] MEDIC[facility] SUPPLEMENT [facility] MEDICARE PART A & B [facility] MEDICARE SUPPLEMENT [facility] MEDICARE PART A & B [facility] [employer] MEDICARE SUPPLEMENT [facility] Care Teams Blanking Machine Operator Relationship Specialty Start Date End Date Magy Romero MD [address] [facility] [place] [address] PCP - General Internal Medicine 02/07/23 Additional Source Comments The information contained in this document represents components of the legal health record. It is not the complete legal health record.[facility]
== END 2025-03-18 13:37 | disposition home or self-care (01) ==
LOC: HO.HMCC 12:41
PROVIDERS: PCP Internal Medicine; Visit Provider Internal Medicine
DX: I10 Essential (primary) hypertension (principal); M48.061 Spinal stenosis, lumbar region without neurogenic claudication; I83.93 Asymptomatic varicose veins of bilateral lower extremities; Z87.19 Personal history of other diseases of the digestive system

== ENCOUNTER → 2025-03-18 12:40 | Outpatient (BNVA) | payer MEDICARE, OTHER, MEDICAID, SELFPAY | PROVIDERS: PCP Internal Medicine; Visit Provider Internal Medicine | DX: I10 Essential (primary) hypertension (principal); M48.061 Spinal stenosis, lumbar region without neurogenic claudication; I83.93 Asymptomatic varicose veins of bilateral lower extremities; Z87.19 Personal history of other diseases of the digestive system | CPT/HCPCS: 96127; 99212 ==

== ENCOUNTER 2025-03-22 13:40 | Outpatient (AMB) | payer MEDICARE, OTHER, SELFPAY ==
--- OUTSIDE RECORDS SUMMARY | 2024-07-31 09:45 | XMS_ITS ---
Author Organization [facility] Address [address] [place] [address] Care Team Providers Care Transverse Abdominal Muscle Nurse Name Role Phone Heather CONNORS, Magy Todd Primary Care Provider Un available Bruce Dorsey Unavailable [phone] Encounters Encounter Location Date Provider Diagnosis [address] [address] 07/31/2024 Bruce Dorsey Plan Of Treatment No Information Progress Notes * JACOBS, Jocelyn MDOB: [birth year] (89 yo F)Acc No.[id number]:07/31/2024 Progress Note Patient: Jocelyn HYDE Provider: Abdiaziz Dorsey DPM :1935 A ge:88 Y S ex:Female Date:07/31/2024 Address:[address] [place] [address] [address], [id number] Pcp:Louie Anderson Subjective: * Chief Complaints: * [...] 10/01/2023 Generated for Printi ng/Faxing/eTransmitting on: 0 03/22/2025 02:21 PM EDT
--- OUTSIDE RECORDS SUMMARY | 2025-03-22 14:21 | XMS_ITS | Continuity of Care Document ---
Author Name [facility] Organization [facility] Care Team Providers Care Principal Cyber Engineer Name Role Phone [facility] Unavailable Unavailable Medications Combined list of outpatient [...] ORAL, [employer] 100 ea. BOTTLE Active [id number] 4 2023 90 Pharmac y Data Transac tion Service Facilit y LISINOPRIL (lisinopril ), 2.5 MG, TABLET, ORAL, [employer]ACE, 500 ea. BOTTLE Active [id number] 4 2023 90 Pharmac y Data Transac tion Service Facilit y PRIMIDONE (PRIMIDONE) , 50 MG, TABLET, ORAL, AV FAZAL, 500 ea. BOTTLE Cancele d [id number] : 2023 0 Pharmac y Data Transac tion Service Facilit y Immunizations Combined list of available immunizations from the Department of Defense and Veterans Affairs facilities. Immunization Series Date Given Administered By Site Reaction Lot Number CVX Code Drug Preschool Associate Teacher Status Comments Source COVID-19, mRNA, LNP-S, PF, 30 mcg/0.3 mL dose, susana-sucrose 2021 [employer] (PFR) Not Given COVID-19, mRNA, LNP-S, PF, 30 mcg/0.3 mL dose, susana-sucr ose [facility] COVID-19, mRNA, LNP-S, PF, 30 mcg/0.3 mL dose 2020 [employer] [place] (PFR) Not Given COVID-19, mRNA, LNP-S, PF, 30 mcg/0.3 mL dose [facility] influenza, high-dose, quadrivalent 2020 BOGLI, () Not [...]
--- OUTSIDE RECORDS SUMMARY | 2025-03-22 14:22 | XMS_ITS | Clinical Summary ---
Author Organization [facility] Address [address] [address] Phone Care Team Providers Care Header Boss Name Role Phone Magy Romero MD Primary [...] EST) SODIUM 137 133 - 146 mmol/L [facility] POTASSIUM 4.3 3.3 - 5.1 mmol/L [facility] CHLORIDE 100 96 - 108 mmol/L [facility] CO2 26 21 - 35 mmol/L [facility] BUN 22(H) 6 - 19 mg/dL [facility] CREATININE 0.90 0.5 - 1.5 mg/dL [facility] GLUCOSE 107(H) 70 - 99 mg/dL [facility] ALBUMIN 2.9(L) 3.9 - 4.8 g/dL [facility] TOTAL PROTEIN 5.0(L) 6.5 - 8.0 g/dL [facility] CALCIUM 7.8(L) 8.4 - 10.3 mg/dL [facility] ALKALINE PHOSPHATASE 59 39 - 117 U/L [facility] TOTAL BILIRUBIN <0.2 0.0 - 1.2 mg/dL [facility] AST 29 0 - 37 U/L [facility] ALT 13 0 - 40 U/L [facility] GLOBULIN 2.1 1 - 4.8 g/dL [facility] EGFR 62 >59 mL/min/1.7 3m2 [facility] Comment:Estimated glomerular filtration rate calculated using the CKD-EPI refit equation. ANION GAP 15 10 - 20 mmol/L [facility] Blood 10/08/2024 8:01 AM EST 10/08/2024 10:51 AM EST us Ravi Rivera MD LAB BLOOD ORDERABLES Zara talley Result [facility] [address] [place] [address] from Last 3 Months or Most Recently Relevant to Health Maintenance Insurance MEDICARE PART A & B [facility] MEDICARE SUPPLEMENT [facility] MEDICARE PART A & B [facility] MEDICARE [facility]PPLEMENT [facility] A & B [facility] MEDICARE SUPPLEMENT [facility] A & B [facility] MEDICARE SUPPLEMENT [facility] MEDICARE PART A & B [facility] MEDICARE SUPPLEMENT [facility] MEDICARE PART A & B [facility] MEDICARE SUPPLEMENT [facility] Care Teams Header Boss Relationship Specialty Start Date End Date Magy Romero MD 1960 [facility] [place] [address] PCP - General Internal Medicine 02/07/23 Additional Source Comments The information contained in this document represents components of the legal health record. It is not the complete legal health record.[facility]
--- OUTSIDE RECORDS SUMMARY | 2025-03-22 14:22 | XMS_ITS | Patient Health Record ---
Author Organization [facility] Address [address] [place] [address] Care Team Providers Care Mortar Man Name Role Phone Hetaher CONNORS, Magy Primary Care Provider Brian Tam Unavailable [phone] SALOMÓN CHAMPION Unavailable Unavailable Allergies Allergen (clinical [...] Problem Status W/U Status Risk Notes Problem [id number] Cough (R05) Active confirmed Problem 903282424 Gastroesophageal reflux disease with esophagitis (K21.0) Active confirmed Problem 06648374 Erosive esophagi tis (K22.10) Active confirmed Problem 42497712 Constipation, unspecified constipation type (K59.00) Active confirmed Problem 15785359 Esophagitis (K20.9) Active confirmed Problem 56917454 Lower abdominal pain (R10.30) Active confirmed Plan Of Treatment Pending Test Test Name Order Date XR CHEST 2 VIEW PA & LAT 04/25/2021 Future Test Test Name Order Date UPPER GI ENDOSCOPY 11/13/2016 Insurance Providers Payer Name Payer Address Payer Phone Subscriber Number Group Number Insured Name Patient Relationship to Insured Coverage Start Date Coverage End Date MED[place]ARE OF [place] [address] [place] [address] [phone] [id number] JACOBS , HITESH Self - patient is the insured [employer] [address] [place] [address] [phone] [id number] FAHAD JACOBSIS Self - patient is the [...] Tremors Elevated cholesterol Degenerative joint disease Denies CA,DM,CVA,Lung disease,renal dise ase Surgical History Surgery Date(Month/Year) Cataracts/lens implants 10/2006
--- NOTE | 2025-03-22 14:23 | A.OFFVIS_ITS ---
Vital Signs 03/22/25 14:23 Height 5 ft 4 in Intake Visit Reasons: 6 mnts f/u Allergies No Known Allergies Allergy (Verified 03/22/25 14:29) Medication List - Last Reconciled 03/22/25 by Nayla Escobedo CNP acetaminophen-codeine 300-15 mg 1 tab PO DAILY PRN acetaminophen-codeine 300-15 mg 1 tab PO DAILY PRN ascorbic acid (vitamin C) 1 g PO DAILY 90 days buspirone 7.5 mg PO BEDTIME cholecalciferol (vitamin D3) 25 mcg PO DAILY cyanocobalamin (vitamin B-12) 1,000 mcg IM Q4W 3 months denosumab (Prolia) 60 mg subcut [id number] lisinopril 2.5 mg PO DAILY methenamine hippurate 1 g PO DAILY 90 days Held on 03/07/25. Instructions: Resume on 03/10/25. miscellaneous medical supply Elevated toilet seat with handles omeprazole 20 mg PO DAILY@0630 primidone 100 mg PO BID propranolol ER 60 mg PO DAILY PRN torsemide 5 mg PO DAILY PRN Held on 03/07/25. Instructions: Resume on 03/10/25. torsemide 5 mg PO QAM PRN HPI Comments Details: 89-year-old woman with arthritis and tremor treated with propranalol and primidone, and migraine treated with small dose of lisinopril. She has been in and out of the hospital, most recently either this month with colitis. She noticed tremor seemed to increase around 09/2024 and she increased primidone dose on her own around 10/2024. She has been taking 100mg in the morning and 150mg at night. No medication side effects. Tremors are stable, L > R. She had some trouble holding cup steady and would fill cup only jail to avoid spilling, otherwise no trouble eating, drinking, or swallowing. Headaches were okay. She was having some stress. 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 Mother Arthritis Son No problems noted. Daughter No problems noted. Brother No problems noted. Social History Household Members: None Housing: Other Housing Other:: Supportive Housing. Do you presently have visiting nurse or other home services: Yes Alcohol intake: former Patient Tobacco Use Status: Never used Tobacco Tobacco use type: Cigarette e-Cigarette/Vaping Use: Never Used Second Hand Smoke Exposure: Yes Advance Directives Date on File: 03/11/24 service: No Current occupational status: retired Current occupation: Retired Cognitive needs: No Hearing needs: No Vision needs: Yes Review of Systems Const Denies chills, Denies daytime sleepiness, Denies difficulty sleeping, Denies fatigue, Denies fever(s), Denies frequent falls, Reports headache(s), Denies increased appetite, Denies poor appetite, Denies snoring, Denies weakness, Denies weight gain and Denies weight loss Eyes Denies loss of vision ENT Denies vertigo, Denies dizziness and Reports headache(s) Card Denies chest pain at rest, Denies chest pain with activity, Denies syncope, Denies leg edema and Denies palpitations Resp Denies snoring GI Denies constipation, Denies heartburn, Denies diarrhea and Denies nausea Denies urinary frequency, Denies urinary incontinence and Denies urinary urgency Musc Denies abnormal gait, Denies numbness and Denies tingling Skin/Breast Denies dry skin and Denies rash Neuro Denies abnormal gait, Denies vertigo, Denies dizziness, Denies syncope, Denies frequent falls, Reports headache(s), Denies lack of coordination, Denies loss of vision, Denies memory loss, Denies numbness, Denies restless legs, Denies seizure-like activity, Denies tingling, Denies paresthesias, Reports tremor(s) and Denies weakness Psych Denies anxiety, Denies depression, Denies auditory hallucinations, Denies memory loss, Denies visual hallucinations and Denies suicidal ideation Endo Denies fatigue and Denies palpitations Physical Exam Const Other: General Appearance:? normal, in no acute distress. Skin:? no rashes, no significant birthmarks. Heart:? S1, S2 normal, no murmurs. Lungs:? clear anteriorly and posteriorly. Extremities:? no edema. Psych:? alert, oriented, cognitive function intact, cooperative with exam. Neuro Other: Mental Status:?Normal attention, orientation, memory and affect.? Cranial Nerves:?Pupils are equal, round and reactive to light. External occular muscles are intact. Visual payne are full. Face is symmetrical. Facial sensations are normal. Tongue is midline. Palate elevates symmetrically. Shoulder shrugging is normal. Hearing to bedside conversation is normal. Motor Examination:?Normal muscle tone, bulk and strength,?Deep tendon reflexes are 2+,?Plantars are flexor.? Sensory Exam:?....? Coordination:?No ataxia,?no titubation.? Gait Exam: Within normal limits. Cerebellar Signs:?Emibhp-th-bmrk and qoab-al-ymiu is normal.? Extrapyramidal System:?No tremor, rigidity with normal facial expressions.? Pronator Drift:?Not present.? Involuntary Movements:?Mild head tremor. Mild bilateral hand tremor on sustained posture. Speech:?Mild speech tremor. Assessment & Plan Assessment & Plan (1) Benign essential tremor: Code(s): G25.0 - Essential tremor Category: Medical Plan: She was having more tremors after primidone was not given in hospital and increased her dose on her own. She was taking 100mg in the morning and 150mg at bedtime, no medication side effects, and tremor was stable. Will continue this dose. She was advised to take medications as prescribed and consult with ordering provider if dose needs to be adjusted. Continue primidone 50mg 2 tablets in the morning and 3 tablets at bedtime. Continue propranolol ER 60mg 1 capsule daily. (2) Migraine: Code(s): G43.909 - Migraine, unspecified, not intractable, without status migrainosus Category: Medical Qualifiers: Migraine type: unspecified Status migrainosus presence: without status migrainosus Intractability: not intractable Qualified Code(s): G43.909 - Migraine, unspecified, not intractable, without status migrainosus Plan: Continue lisinopril 2.5mg 1 tablet daily. Medications: New primidone 2 tablets in the morning and 3 tablets at bedtime; 450 tabs 1RF 90 days propranolol ER 60 mg PO DAILY 90 caps 1RF 90 days Discontinued propranolol ER Discontinued Reason: Order 60 mg PO DAILY PRN Tremor(S) primidone Discontinued Reason: Order 100 mg PO BID Coding Level of Care Code Est Pt Level 4 (34263) Diagnoses Benign essential tremor G25.0 Migraine without status migrainosus, not intractable, unspecified migraine type G43.909 Migraine type: unspecified Status migrainosus presence: without status migrainosus Intractability: not intractable
== END 2025-03-22 14:43 | disposition home or self-care (01) ==
LOC: HO.HSM 13:41
PROVIDERS: PCP Internal Medicine; Referring Provider Internal Medicine; Visit Provider Registered Nurse
DX: G25.0 Essential tremor (principal); G43.909 Migraine, unspecified, not intractable, without status migrainosus
CPT/HCPCS: 99214

== ENCOUNTER → 2025-03-22 13:40 | Outpatient (BNVA) | payer MEDICARE, OTHER, SELFPAY | PROVIDERS: PCP Internal Medicine; Referring Provider Internal Medicine; Visit Provider Registered Nurse | DX: G25.0 Essential tremor (principal); G43.909 Migraine, unspecified, not intractable, without status migrainosus | CPT/HCPCS: 99212 ==

== ENCOUNTER 2025-04-08 14:05 | Outpatient (AMB) | payer MEDICARE, OTHER, SELFPAY ==
--- OUTSIDE RECORDS SUMMARY | 2024-07-31 09:45 | XMS_ITS ---
Author Organization [facility] Address [address] [place] [address] Care Team Providers Care Supervisor Core Shop Name Role Phone Heather CONNORS, Magy Todd Primary Care Provider Un available Bruce Dorsey Unavailable [phone] Encounters Encounter Location Date Provider Diagnosis [address] [address] 07/31/2024 Bruce Dorsey Plan Of Treatment No Information Progress Notes * JACOBS, Jocelyn MDOB: [birth year] (89 yo F)Acc No.[id number]:07/31/2024 Progress Note Patient: Jocelyn HYDE Provider: Abdiaziz Dorsey DPM :1935 A ge:88 Y S ex:Female Date:07/31/2024 Address:[address] [place] [address] [address], [id number] Pcp:Louie Anderson Subjective: * Chief Complaints: * [...] Date: 10/01/2023 Generated for Printi ng/Faxing/eTransmitting on: 0 04/08/2025 02:53 PM EDT
--- NOTE | 2025-04-08 14:31 | AM.OFFVISNUR ---
Intake Visit Reasons: b12 Allergies No Known Allergies Allergy (Verified 03/22/25 14:29) Nursing Note Pt came in. Medicated x 1 with Vitamin B12 to left deltoid. Pt tolerated well. Office Meds cyanocobalamin (vitamin B-12) 1,000 mcg/mL injection solution Performing Provider: Magy Romero MD Performing Location: [facility] Administered by: Alva Wang on 04/08/25 14:31 Dose Route Admin Location Dispensed Lot Number Expiration Date [facility] Doll Dresser 1,000 mcg IM left deltoid 1 mL [id number] 04/14/26 73082-836-88 [employer] Total Dispensed Waste 1 mL 0 % Assessment & Plan Assessment & Plan Orders: Orders AMB Vitamin B12 Injection Patient Supplied Today E53.8 - Deficiency of other specified B group vitamins Coding
--- OUTSIDE RECORDS SUMMARY | 2025-04-08 14:52 | XMS_ITS | Continuity of Care Document ---
Author Name [facility] Organization [facility] Care Team Providers Care Svp Marketing Name Role Phone [facility] Unavailable Unavailable Medications Combined list of outpatient [...] ORAL, [employer] 100 ea. BOTTLE Active [id number] 2023 90 Pharmac y Data Transac tion Service Facilit y LISINOPRIL (lisinopril ), 2.5 MG, TABLET, ORAL, EXELAN PHARMACE, 500 ea. BOTTLE Active [id number] 4 2023 90 Pharmac y Data Transac tion Service Facilit y PRIMIDONE (PRIMIDONE) , 50 MG, TABLET, ORAL, AV FAZAL, 500 ea. BOTTLE Cancele d [id number] : 2023 0 Pharmac y Data Transac tion Service Facilit y Immunizations Combined list of available immunizations from the Department of Defense and Veterans Affairs facilities. Immunization Series Date Given Administered By Site Reaction Lot Number CVX Code Drug Architectural Representative Status Comments Source COVID-19, mRNA, LNP-S, PF, 30 mcg/0.3 mL dose, susana-sucrose 2021 [place] (PFR) Not Given COVID-19, mRNA, LNP-S, PF, 30 mcg/0.3 mL dose, susana-sucr ose [facility] COVID-19, mRNA, LNP-S, PF, 30 mcg/0.3 mL dose 2020 [place] (PFR) Not Given COVID-19, mRNA, LNP-S, PF, 30 mcg/0.3 mL dose [facility] influenza, high-dose, quadrivalent 2020 BOGLI, () [...]
--- OUTSIDE RECORDS SUMMARY | 2025-04-08 14:53 | XMS_ITS | Clinical Summary ---
Author Organization [facility] Address [address] [address] Phone Care Team Providers Care Service Officer Name Role Phone Magy Romero MD Primary [...] EST) SODIUM 137 133 - 146 mmol/L [facility] POTASSIUM 4.3 3.3 - 5.1 mmol/L [facility] CHLORIDE 100 96 - 108 mmol/L [facility] CO2 26 21 - 35 mmol/L [facility] BUN 22(H) 6 - 19 mg/dL [facility] CREATININE 0.90 0.5 - 1.5 mg/dL [facility] GLUCOSE 107(H) 70 - 99 mg/dL [facility] ALBUMIN 2.9(L) 3.9 - 4.8 g/dL [facility] TOTAL PROTEIN 5.0(L) 6.5 - 8.0 g/dL [facility] CALCIUM 7.8(L) 8.4 - 10.3 mg/dL [facility] ALKALINE PHOSPHATASE 59 39 - 117 U/L [facility] TOTAL BILIRUBIN <0.2 0.0 - 1.2 mg/dL [facility] AST 29 0 - 37 U/L [facility] ALT 13 0 - 40 U/L [facility] GLOBULIN 2.1 1 - 4.8 g/dL [facility] EGFR 62 >59 mL/min/1.7 3m2 [facility] Comment:Estimated glomerular filtration rate calculated using the CKD-EPI refit equation. ANION GAP 15 10 - 20 mmol/L [facility] Blood 10/08/2024 8:01 AM EST 10/08/2024 10:51 AM EST us Ravi Rivera MD LAB BLOOD ORDERABLES Zara talley Result [facility] [address] [place] [address] from Last 3 Months or Most Recently Relevant to Health Maintenance Insurance MEDICARE PART A & B [facility] MEDICARE SUPPLEMENT [facility] MEDIC[facility] SUPPLEMENT [facility] MEDIC[facility] PART A & B [facility] MED[facility]ARE [facility]PPLEMENT [facility] MEDIC[facility] PART A & B [facility] MED[facility]ARE SUPPLEMENT [facility] Care Teams Service Officer Relationship Specialty Start Date End Date Magy Romero MD [address] [facility] [place] [address] PCP - General Internal Medicine 02/07/23 Additional Source Comments The information contained in this document represents components of the legal health record. It is not the complete legal health record.[facility]
--- OUTSIDE RECORDS SUMMARY | 2025-04-08 14:54 | XMS_ITS | Patient Health Record ---
Author Organization [facility] Address [address] [place] [address] Care Team Providers Care Signalling And Communications Engineer Name Role Phone Heather CONNORS, Magy Primary Care Provider Brian Tam Unavailable [phone] SALOMÓN CHAMPION Unavailable Unavailable Allergies Allergen (clinical [...] Problem Status W/U Status Risk Notes Problem 39127259 Cough (R05) Active confirmed Problem 345989654 Gastroesophageal reflux disease with esophagitis (K21.0) Active confirmed Problem 29305706 Erosive esophagi tis (K22.10) Active confirmed Problem 81656826 Constipation, unspecified constipation type (K59.00) Active confirmed Problem 43953187 Esophagitis (K20.9) Active confirmed Problem 66405432 Lower abdominal pain (R10.30) Active confirmed Plan Of Treatment Pending Test Test Name Order Date XR CHEST 2 VIEW PA & LAT 04/25/2021 Future Test Test Name Order Date UPPER GI ENDOSCOPY 11/13/2016 Insurance Providers Payer Name Payer Address Payer Phone Subscriber Number Group Number Insured Name Patient Relationship to Insured Coverage Start Date Coverage End Date MEDICARE OF [place] [address] [facility] [place] [address] [id number] JACOBS , HITESH Self - patient is the insured [employer] [address] [place] [address] [id number] FAHAD JACOBSIS Self - patient is the [...] Tremors Elevated cholesterol Degenerative joint disease Denies [place],DM,CVA,Lung disease,renal dise ase Surgical History Surgery Date(Month/Year) Cataracts/lens implants 10/2006
== END 2025-04-08 14:16 | disposition home or self-care (01) ==
LOC: HO.HMCC 14:05
PROVIDERS: PCP Internal Medicine; Visit Provider Internal Medicine
DX: E53.8 Deficiency of other specified B group vitamins (principal)

== ENCOUNTER → 2025-04-08 14:05 | Outpatient (BNVA) | payer MEDICARE, OTHER, SELFPAY | PROVIDERS: PCP Internal Medicine; Visit Provider Internal Medicine | DX: E53.8 Deficiency of other specified B group vitamins (principal) | CPT/HCPCS: 96372; J3420 ==

== ENCOUNTER 2025-05-03 10:36 | Outpatient (AMB) | payer MEDICARE, OTHER, SELFPAY ==
--- OUTSIDE RECORDS SUMMARY | 2024-07-31 09:45 | XMS_ITS ---
Author Organization [facility] Address [address] [place] [address] Care Team Providers Care Preforms Laminator Name Role Phone Heather CONNORS, Magy Todd Primary Care Provider Un available Bruce Dorsey Unavailable [phone] Encounters Encounter Location Date Provider Diagnosis [address] [address] 07/31/2024 Bruce Dorsey Plan Of Treatment No Information Progress Notes * JACOBS, Jocelyn MDOB: [birth year] (89 yo F)Acc No.[id number]:07/31/2024 Progress Note Patient: Jocelyn HYDE Provider: Abdiaziz Dorsey DPM :1935 A ge:88 Y S ex:Female Date:07/31/2024 Address:[address] [place] [address] [address], [id number] Pcp:Louie Anderson Subjective: * Chief Complaints: * * Medical History: Objective: * Vitals: Assessment: Plan: * Treatment: * Images: * The named appointment provid er may or may not be the originator of this progress note, and it is not deemed complete until electronically signed by the appointment provider. Sign off status: Pending * Provider: Abdiaziz Dorsey DPM Date: 1 10/01/2023 Generated for Printi ng/Faxing/eTransmitting on: 0 05/03/2025 12:48 PM EDT
--- OUTSIDE RECORDS SUMMARY | 2024-08-11 05:15 | XMS_ITS ---
Author Organization [facility] Address [address] [place] [address] Care Team Providers Care Aquarist Name Role Phone Heather CONNORS, Magy Todd Primary Care Provider Un available Bruce Dorsey Unavailable [phone] Encounters Encounter Location Date Provider Diagnosis [address] [address] 08/11/2024 Bruce Dorsey Plan Of Treatment No Information Progress Notes * JACOBSJocelyn MDOB: [birth year] (89 yo F)Acc No.[id number]:08/11/2024 Progress Note Patient: Jocelyn HYDE Provider: Abdiaziz Dorsey DPM :1935 A ge:88 Y S ex:Female Date:08/11/2024 Address:[address] [place] [address] [address], [id number] Pcp:Louie [place] Subjective: * Chief Complaints: * * Medical History: Objective: * Vitals: Assessment: Plan: * Treatment: * Images: * The named appointment provid er may or may not be the originator of this progress note, and it is not deemed complete until electronically signed by the appointment provider. Sign off status: Pending * Provider: Abdiaziz Dorsey DPM Date: 1 10/12/2023 Generated for Printi ng/Faxing/eTransmitting on: 0 05/03/2025 12:48 PM EDT
[2025-05-03 10:54] VITALS: BP 126/80; PULSE 70; TEMP 36.8; O2SAT 96; BMI 21.0
--- NOTE | 2025-05-03 10:54 | AM.OFFWIN_ITS ---
Intake Vital Signs 05/03/25 10:54 Height 5 ft 4 in Weight 122 lb 8 oz BMI 21.0 BP 126/80 Blood Pressure Location Lt brachial Position Sitting Pulse 70 Pulse Source Pulse Oximeter Temp 98.2 F Temp Source Oral Pulse Oximetry (%) 96 Oxygen Delivery Method Room Air Intake Visit Reasons: EP-rt arm pain Intake Note: pt is here for right arm pain, 2 weeks, denies injury Patient Tobacco Use Status: Never used Tobacco Allergies No Known Allergies Allergy (Verified 05/03/25 10:54) Do you need a note to return to daycare/school/sports/work: No HPI HPI Comments History of Present Illness Details History of Present Illness - The patient is an 89-year-old female p resenting with right upper arm pain. - The pain has been present for about tw o weeks, initially suspected to be due to an insect bite. - The patient reports no redness, swelli ng, or itching associated with the pain. - She has applied peroxide and arthritis cream without relief. - The pain is localized to the upper arm and sometimes feels like it extends to the shoulder. - There is no history of trauma or injur y to the arm. - The patient lifts things like grocerie s regularly but denies any specific incident of overexertion. - The pain interferes with sleep and titus ly activities such as dressing. -She is right handed. - She denies shoulder pain, back pain, n maggie pain, elbow pain, hand pain or numbness or tingling. Physical Exam General: Cooperative, healthy appearing, comfortable, no acute distress and well developed Orientation: Patient oriented x3 Limitations: Pain in the upper arm, difficulty moving arm across the body Neck: Normal visual inspection and Yes full ROM. No TTP of the right lateral neck. Respiratory: Normal respiratory effort and able to speak in complete sentences. Clear to auscultation bilaterally Cardiovascular: Regular rate and rhythm. Normal S1 and S2 Skin: No rashes or lesions noted Neuro: Sensation is intact on the UE bilaterally. Extremities: Pain in the upper arm, no swelling or redness noted, difficulty moving arm across the body, able to squeeze hand tightly. No click noted. TTP of the anterior right upper arm, bicipital groove. FROM of the right elbow and wrist. Hand world travel counselor is intact. Patient was informed and verbally consented to the use of an ambient scribe for clinic note documentation during this visit. 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 Mother Arthritis Son No problems noted. Daughter No problems noted. Brother No problems noted. Social History Household Members: None Housing: Other Housing Other:: Supportive Housing. Do you presently have visiting nurse or other home services: Yes Alcohol intake: former Patient Tobacco Use Status: Never used Tobacco Tobacco use type: Cigarette e-Cigarette/Vaping Use: Never Used Second Hand Smoke Exposure: Yes Advance Directives Date on File: 03/11/24 service: No Current occupational status: retired Current occupation: Retired Cognitive needs: No Hearing needs: No Vision needs: Yes Review of Systems Const All systems reviewed & are unremarkable except as noted in HPI and below Physical Exam Vital Signs: Last Vital Signs Temp 98.2 F 05/03/25 10:54 Pulse 70 05/03/25 10:54 BP 126/80 05/03/25 10:54 Pulse Ox 96 05/03/25 10:54 Oxygen Delivery Method Room Air 05/03/25 10:54 BMI result Body Mass Index 21.0 Results Reviewed Results Reviewed: Reviewed the xray in the office and negative Assessment & Plan Assessment & Plan (1) Right arm pain: Code(s): M79.601 - Pain in right arm Plan Most likely a strain vs dislocation vs calcific tendonitis vs arthritis plan - will order an xray in the office - tylenol or motrin as needed for pain - flexeril as needed - wear the sling - activities as tolerated - can refer to ortho - follow up with PCP Orders: Orders XR shoulder RT min 2V Today M79.621 - Pain in right upper arm Medications: New cyclobenzaprine 5 mg PO Q8H PRN 20 tabs 0RF Muscle Spasm Coding Level of Care Code Est Pt Level 4 (03028) Diagnoses Right arm pain M79.601
--- OUTSIDE RECORDS SUMMARY | 2025-05-03 12:48 | XMS_ITS | Patient Health Record ---
Author Organization [facility] Address [address] [place] [address] Care Team Providers Care Temple Marker Name Role Phone Heather CONNORS, Magy Primary Care Provider Brian Tam Unavailable [phone] SALOMÓN CHAMPION Unavailable Unavailable Allergies Allergen (clinical [...] Problem Status W/U Status Risk Notes Problem 63549462 Cough (R05) Active confirmed Problem 017266136 Gastroesophageal reflux disease with esophagitis (K21.0) Active confirmed Problem 14428589 Erosive esophagi tis (K22.10) Active confirmed Problem 94994672 Constipation, unspecified constipation type (K59.00) Active confirmed Problem 05518892 Esophagitis (K20.9) Active confirmed Problem 90102191 Lower abdominal pain (R10.30) Active confirmed Plan Of Treatment Pending Test Test Name Order Date XR CHEST 2 VIEW PA & LAT 04/25/2021 Future Test Test Name Order Date UPPER GI ENDOSCOPY 11/13/2016 Insurance Providers Payer Name Payer Address Payer Phone Subscriber Number Group Number Insured Name Patient Relationship to Insured Coverage Start Date Coverage End Date MEDICARE OF [place] [address] [facility] [address] [phone] [id number] JACOBS , HITESH Self - patient is the insured [employer] [address] [place] [address] [id number] FAHAD JACOBSIS Self - patient is the [...]
--- OUTSIDE RECORDS SUMMARY | 2025-05-03 12:49 | XMS_ITS | Patient Health Record ---
Author Organization [facility] Address [address] [place] [address] Care Team Providers Care Physician President Name Role Phone Heather CONNORS, Magy Todd Primary Care Provider Un available Bruce Dorsey Unavailable [phone] Allergies Allergen (clinical drug ingredient) Drug/Non Drug Allergy documented on EMR Reaction Allergy Type Onset Date Status Seasonale Unknown Drug Allergy Active codeine Codeine sensitive, feels sick Drug Allergy Active Reason For Referral No Information Medications Medication SIG (Take, Route, Frequency, Duration) Notes Start Date End Date Status Prolia every 6 months Active Vitamin D3 Active Vitamin B12 Active Calcium 1 tab Oral; Duration: 14 days Active Ciclopirox Olamine 0.77 % 1 application Externally Twice a day; Duration: 30 days Active Ammonium Lactate 12 % 1 application to affected area Externally to feet Twice a day; Duration: 30 days Active CeleBREX 200 MG 1 capsule Orally Once a day; Duration: 30 day(s) Active Losartan Potassium 25 MG as directed Orally Active Gabapentin Not-Takin g Hydrocortisone 2.5 % as directed Externally to feet Twice a day; Duration: 30 days Active Crestor 20 MG 1 tablet Orally Once a day; Duration: 30 day(s) Not-Taking Omeprazole 20 MG 1 capsule Orally Once a day; Duration: 30 day(s) Active PriLOSEC Not-Taking Lisinopril 5 MG 0.5 tablet Orally Once a day; Duration: 30 day(s) Active Inderal LA 60 MG 1 capsule Orally Once a day; Duration: 30 day(s) Not-Taking Propranolol HCl 60 MG 1 tablet on an empty stomach Orally Once a day; Duration: 30 day(s) Active HYDROcodone-Acetaminop hen 5-500 MG 1 capsule as needed Orally every 6 hrs Not-Taking Primidone 50 MG as directed Orally Active Aspirin 81 MG 1 tablet Orally Once a day; Duration: 30 day(s) Not-Taking Immunizations Vaccine Route Administration [...] Problem Status W/U Status Risk Notes Problem Age-related osteoporosis (947065555) Age-related osteoporosis without current pathological fracture (M81.0) Active confirmed Problem Bilateral atherosclerosis of arteries of lower limbs (disorder) ([id number] ) Atherosclerosis of muscogee artery of both lower extremities, with unspecified presence of clinical manifestation (I70.203) Active confirmed Vital Signs Blood pressure diastolic 70 mm Hg 05/05/2024 Height 5 ft 4 in in 05/05/2024 Blood pressure systolic 120 mm Hg 05/05/2024 Weight 135 lbs 05/05/2024 BMI 23.17 kg/m2 05/05/2024 Procedures Procedure Date Ordered Date Performed Result Body Sit e 24205-ZAGSAJW NAIL, 6 OR MORE 05/05/2024 N/A 90108-AGNK SKIN LESIONS, OVER 4 05/05/2024 N/A Encounters Encounter Location Date Provider [facility] [address] 05/05/2024 Bruce Dorsey Atherosclerosis of muscogee artery of both lower extremities, with unspecified presence of clinical manifestation I70.203 ; Tinea unguium B35.1 ; Pain in right toe(s) M79.674 and Pain in left toe(s) M79.[address] [address] 05/05/2024 [facility] [place] [address] 07/29/2024 Bruce Dorsey [facility] [address] [address] 08/11/2024 Bruce Dorsey Assessments Encounter Date Diagnosis (ICD Code) Assessment Notes Treatment Notes Treatment Clinical Notes Section Notes 05/05/2024 Tinea unguium (ICD-10 - B35.1) 05/05/2024 Atherosclerosis of muscogee artery of both lower extremities, with unspecified presence of clinical manifestation (ICD-10 - I70.203) 05/05/2024 Pain in right toe(s) (ICD-10 - M79.674) 05/05/2024 Pain in left toe(s) (ICD-10 - M79.675) Plan Of Treatment Pending Test Test Name Order Date X ray : Foot, right 3V 12/28/2022 85212-UMVPJZS NAIL, 6 OR MORE 02/05/2023 90251-EIQWSBC NAIL, 6 OR MORE 11/13/2022 76570-VAIJEHC NAIL, 6 OR MORE 04/16/2023 41499-YOHWLXM NAIL, 6 OR MORE 07/02/2023 25452-FRYNXUL NAIL, 6 OR MORE 09/20/2023 16299-SEQOJJL NAIL, 6 OR MORE 12/03/2023 73359-HVVDYYU NAIL, 6 OR MORE 02/25/2024 87805-KGOAUFF NAIL, 6 OR MORE 05/05/2024 65284-QPKOMPZ NAIL, 6 OR MORE 10/16/2011 58018-RORXEDR NAIL, 6 OR MORE 01/15/2012 93474-UMIYXCP NAIL, 6 OR MORE 04/22/2012 72491-EMFMHKK NAIL, 6 OR MORE 07/22/2012 61112-MRNSJVG NAIL, 6 OR MORE 10/07/2012 99525-GJYRCQS NAIL, 6 OR MORE 12/30/2012 36162-YYLFKRY NAIL, 6 OR MORE 03/31/2013 87922-GXSJZZN NAIL, 6 OR MORE 06/30/2013 87053-OZPGLIG NAIL, 6 OR MORE 10/06/2013 79538-HVPFBQN NAIL, 6 OR MORE 01/05/2014 95202-ZBSYXFE NAIL, 6 OR MORE 07/06/2014 34681-NEXKCZV NAIL, 6 OR MORE 10/26/2014 59133-TKJHWLA NAIL, 6 OR MORE 01/04/2015 45415-XYCPSNP NAIL, 6 OR MORE 04/05/2015 89088-YOHHVHC NAIL, 6 OR MORE 06/14/2015 01465-NHZGMQR NAIL, 6 OR MORE 04/02/2014 12155-ALMKMNA NAIL, 6 OR MORE 09/06/2015 15245-BKFAHVD NAIL, 6 OR MORE 12/02/2015 89116-VXHOIVQ NAIL, 6 OR MORE 02/10/2016 77953-TTCRTBS NAIL, 6 OR MORE 04/13/2016 75068-XNZCARO NAIL, 6 OR MORE 06/22/2016 81771-BMHRGAG NAIL, 6 OR MORE 09/04/2016 64073-UOGQOCZ NAIL, 6 OR MORE 11/16/2016 03700-KBIHPKF NAIL, 6 OR MORE 01/29/2017 81718-GNBLLAN NAIL, 6 OR MORE 04/12/2017 26510-ZMNFMGG NAIL, 6 OR MORE 06/25/2017 05518-SPHCEUC NAIL, 6 OR MORE 09/03/2017 74271-TQJDYLG NAIL, 6 OR MORE 11/08/2017 59124-JQQFPYW NAIL, 6 OR MORE 01/10/2018 24121-FKAIGYK NAIL, 6 OR MORE 03/25/2018 03900-MWWLMCS NAIL, 6 OR MORE 05/27/2018 95834-XBIXTHB NAIL, 6 OR MORE 09/09/2018 90293-UTGDJIG NAIL, 6 OR MORE 12/05/2018 75943-AOZRYQP NAIL, 6 OR MORE 02/24/2019 49690-RSLYKHJ NAIL, 6 OR MORE 05/29/2019 44977-UIQWIXY NAIL, 6 OR MORE 08/04/2019 10130-AUWYZHS NAIL, 6 OR MORE 11/10/2019 65479-PBJSIDZ NAIL, 6 OR MORE 02/02/2020 46441-XWCAQLC NAIL, 6 OR MORE 04/12/2020 32704-WSZXUVT NAIL, 6 OR MORE 06/24/2020 91322-CSCFONU NAIL, 6 OR MORE 09/13/2020 59643-KKZBZNJ NAIL, 6 OR MORE 12/20/2020 70618-GOSMELQ NAIL, 6 OR MORE 02/28/2021 54142-SUDRSVH NAIL, 6 OR MORE 05/16/2021 34297-UUMGYMO NAIL, 6 OR MORE 09/15/2021 89784-FYJAHSU NAIL, OR MORE 11/17/2021 67396-YQNALXY NAIL, OR MORE 02/02/2022 24162-MIJGMBO NAIL, OR MORE 04/24/2022 41985-FPNAIVX NAIL, 6 OR MORE 07/06/2022 33223-MZYYDXD NAIL, OR MORE 09/11/2022 45729-Qhpazxzu Plate 06/01/2022 64996-Dillqgam Plate 09/11/2022 63329-Otrxuutx Plate 04/24/2022 91939-Xdetbjtf Plate 02/02/2022 79183-Ywygmvxo Plate 11/17/2021 21002-Trvrznaq Plate 09/15/2021 82520-Pzgasqqo Plate 05/16/2021 56522-Esvbrvmz Plate 02/28/2021 68139-Bkxeyhqv Plate 12/20/2020 41367-Wmbygbjc Plate 09/13/2020 37419-Erqxwyzc Plate 06/24/2020 66360-Brltlhdg Plate 10/07/2012 97666-Rdpqsrus Plate 04/12/2020 02955-Kkxnqipk Plate 02/02/2020 07005-Vswkpskw Plate 11/10/2019 10358-Sarrzzco Plate 12/05/2018 96127-Nypkxjml Plate 09/09/2018 36065-Dfgmvpvn Plate 05/27/2018 23846-Tgrslnwq Plate 01/10/2018 96679-Igrsztzq Plate 04/12/2017 38828-Dpttoykk Plate 09/04/2016 08474-Mhsvwolf Plate 09/06/2015 24062-Sthluxst Plate 04/02/2014 07838-Bthslzyp Plate 06/14/2015 12837-Pcsdlnfw Plate 04/05/2015 58081-Isiypdor Plate 01/04/2015 47771-Fbeoovvg Plate 10/26/2014 33892-Lozwculz Plate 07/06/2014 10032-Ohzjyzww Plate 06/30/2013 53617-Uycsiaep Plate 01/15/2012 56589-Uzdankut Plate 02/25/2024 29843-Uslsnwhv Plate 12/03/2023 13760-Hamluprz Plate 07/02/2023 48954-Lpoeqaow Plate 04/16/2023 44672-Krrdyuza Plate 11/13/2022 15640-Thoijjse Plate 02/05/2023 96091-Ykbmvlau Plate Each Additional 10/2014 02835-Igjbhwak Plate Each Additional 07/2015 34786-Nzeftety Plate Each Additional 06/2015 15856-Jqckphae Plate Each Additional 71364-Nhtryiqw Plate Each Additional 07/2019 50214-Ywlnjxbn Plate Each Additional 71630-Gfieoaau Plate Each Additional 17344-Aqtmvkjf Plate Each Additional 46286-Plncjdou Plate Each Additional 01/2021 86758-Lmbdltgz Plate Each Additional 49214-Pumuzuzp Plate Each Additional 88772-Shxrbsuw Plate Each Additional 22228-Akjfdeeb Plate Each Additional 05/2022 89606 I&D ABSCESS- SIMPLE,SINGLE 014 27450 I&D ABSCESS- SIMPLE,SINGLE 012 10234 I&D ABSCESS- SIMPLE,SINGLE 023 38086-CQPW SKIN LESIONS, OVER 4 05/05/20 24 27652-JOAJ SKIN LESIONS, OVER 4 02/06/20 23 73292-SWKI SKIN LESIONS, OVER 4 11/14/19 23 20887-BTOP SKIN LESIONS, OVER 4 04/16/20 23 60246-NAUE SKIN LESIONS, OVER 4 07/02/20 23 22010-RHYS SKIN LESIONS, OVER 4 09/20/19 24 04628-CKBX SKIN LESIONS, OVER 4 12/03/19 24 31115-PLHF SKIN LESIONS, OVER 4 02/25/20 24 40322-KTDG SKIN LESIONS, OVER 4 09/04/19 17 86283-HWHN SKIN LESIONS, OVER 4 11/17/19 17 89001-UTTO SKIN LESIONS, OVER 4 01/30/20 17 06308-YFOS SKIN LESIONS, OVER 4 06/22/20 16 31089-DNSW SKIN LESIONS, OVER 4 04/13/20 16 62682-UOZP SKIN LESIONS, OVER 4 04/12/20 17 77603-DSRG SKIN LESIONS, OVER 4 06/25/20 17 02445-VGVC SKIN LESIONS, OVER 4 11/09/19 18 49396-ROGO SKIN LESIONS, OVER 4 09/03/19 18 20558-IPGD SKIN LESIONS, OVER 4 02/03/20 22 67370-YUSS SKIN LESIONS, OVER 4 11/18/19 01537-RZKZ SKIN LESIONS, OVER 4 04/24/20 34039-XTGH SKIN LESIONS, OVER 4 07/06/20 31173-WVAZ SKIN LESIONS, OVER 4 09/11/19 23 95535-GCCF SKIN LESIONS, OVER 4 09/15/19 69515-MNVU SKIN LESIONS, OVER 4 05/16/20 19679-JAEG SKIN LESIONS, OVER 4 02/29/20 93689-EUNV SKIN LESIONS, OVER 4 12/21/19 67722-XNZO SKIN LESIONS, OVER 4 09/13/19 30024-AZYO SKIN LESIONS, OVER 4 06/24/20 67373-NTAE SKIN LESIONS, OVER 4 11/10/19 41585-LILG SKIN LESIONS, OVER 4 08/04/20 37870-PCLS SKIN LESIONS, OVER 4 02/02/20 19077-UQTQ SKIN LESIONS, OVER 4 04/12/20 85810-BRSW SKIN LESIONS, OVER 4 12/06/19 51293-CJME SKIN LESIONS, OVER 4 05/29/20 19 60547-ZLTW SKIN LESIONS, OVER 4 02/25/20 19 56260-QOZN SKIN LESIONS, OVER 4 01/11/20 18 94989-YZKN SKIN LESIONS, OVER 4 03/25/20 18 97770-OGDW SKIN LESIONS, OVER 4 05/27/20 18 22180-CFCP SKIN LESIONS, OVER 4 09/09/19 19 56022-HSWU SKIN LESIONS, 2 TO 4 06/14/20 15 81527-GBVA SKIN LESIONS, 2 TO 4 04/05/20 15 40915-GEVM SKIN LESIONS, 2 TO 4 04/02/20 14 31125-PNJO SKIN LESIONS, 2 TO 4 09/06/19 16 49600-LDPI SKIN LESIONS, 2 TO 4 02/10/20 16 79932-GJVF SKIN LESIONS, 2 TO 4 12/02/19 16 51380-RJNH SKIN LESIONS, 2 TO 4 01/15/20 12 49195-NAPK SKIN LESIONS, 2 TO 4 07/22/20 12 08007-BZQT SKIN LESIONS, 2 TO 4 04/22/20 12 17521-MAAN SKIN LESIONS, 2 TO 4 06/30/20 13 23488-XNTS SKIN LESIONS, 2 TO 4 03/31/20 13 73195-EHZZ SKIN LESIONS, 2 TO 4 12/31/19 13 83234-CNWR SKIN LESIONS, 2 TO 4 10/07/19 13 49052-YJJY SKIN LESIONS, 2 TO 4 07/06/20 14 63765-ZVXN SKIN LESIONS, 2 TO 4 01/06/20 14 23898-VBIP SKIN LESIONS, 2 TO 4 10/06/19 14 73039-OSSF SKIN LESIONS, 2 TO 4 01/05/20 15 63941-ZJSW SKIN LESIONS, 2 TO 4 10/27/19 15 Insurance Providers Payer Name Payer Address Payer Phone Subscriber Number Group Number Insured Name Patient Relationship to Insured Coverage Start Date Coverage End Date Medicare National [employer] [address] [place] [address] [id number] Jocelyn Mejia Self - patient is the insured 2 [employer] [address] [place] [address] [id number] Brandon Mejia Spouse - patient is the spouse of the insured Medical (General) History Medical History History ICD Code Arthritis back pain Cholesterol Hiatal hernia osteoporosis reflux hypertension ASO/PVD Arthritis - Degenerative Surgical History Surgery Date(Month/Year) Hospitalization History Reason Date(Month/Year) [facility] Acid reflux 09/08-09/12 [facility]- Flu 10/15
== END 2025-05-03 12:37 | disposition home or self-care (01) ==
PROVIDERS: PCP Internal Medicine; Visit Provider Physician Assistant Medical
DX: M79.601 Pain in right arm (principal)

== ENCOUNTER 2025-05-03 10:36 | Outpatient (REF) | payer MEDICARE, OTHER, SELFPAY ==
--- NOTE | ~2025-05-03 | XR_ITS ---
EXAMINATION: XR HUMERUS, RIGHT CLINICAL INFORMATION: M79.621 - Pain in right upper arm COMPARISON: None available. TECHNIQUE: AP and lateral views of the right humerus. FINDINGS: The bones and soft tissues are normal aside from moderately severe dextroscoliosis in the thoracolumbar junction. No fracture. Imaged portions of the shoulder and elbow are unremarkable. XR/XR humerus RT IMPRESSION: Unremarkable right humerus. Electronically signed by: Ken He MD 05/03/2025 12:06 PM EDT
--- NOTE | ~2025-05-03 | XR_ITS ---
EXAMINATION: XR SHOULDER, RIGHT CLINICAL INFORMATION: M79.621 - Pain in right upper arm COMPARISON: None available. TECHNIQUE: Two views of the right shoulder. FINDINGS: There is no dislocation. AC joint is intact as well. There is a small subacromial spur. Small marginal osteophytes are present involving humeral head and AC joint. XR/XR shoulder RT min 2V IMPRESSION: Mild degenerative changes. Otherwise unremarkable exam. Electronically signed by: Ken He MD 05/03/2025 12:05 PM EDT
--- OUTSIDE RECORDS SUMMARY | 2025-05-03 14:16 | XMS_ITS | Clinical Summary ---
Author Organization [facility] Address [address] [address] Phone Care Team Providers Care Property Management Assistant Name Role Phone Magy Romero MD Primary [...] VACCINE (1 - 1-dose 75+ series) 2011 INFLUENZA VACCINE (#1) 2025 COVID-19 VACCINE ( - 2023-2 5 season) 2025 CREATININE LEVEL 10/08/2025 10/08/2024 POTASSIUM LEVEL 10/08/2025 [...] Zara talley Result [facility] [address] [place] [address] from Last 3 Months or Most Recently Relevant to Health Maintenance Insurance MEDICARE PART A & B [employer] MEDICARE SUPPLEMENT [facility] Address: [address] [address] [facility] MEDICARE PART A & B [employer] MEDICARE SUPPLEMENT [facility] Address: [address] [address] [facility] MED[facility] PART A & B [facility] MEDICARE SUPPLEMENT [facility] Address: [address] [address] [facility] MED[facility] PART A & B [facility] MEDICARE SUPPLEMENT [facility] Address: [address] [address] [facility] MEDICARE PART A & B [employer] MEDICARE SUPPLEMENT [facility] Address: [address] [address] [facility] MEDICARE PART A & B [employer] MEDICARE SUPPLEMENT [facility] Care Teams Property Management Assistant Relationship Specialty Start Date End Date Magy Romero MD [facility] [place] [address] PCP - General Internal Medicine 02/07/23 Additional Source Comments The information contained in this document represents components of the legal health record. It is not the complete legal health record.[facility]
== END 2025-05-03 10:37 | disposition home or self-care (01) ==
LOC: HO.HMGCX 10:36
PROVIDERS: PCP Internal Medicine; Visit Provider Physician Assistant Medical
DX: M79.621 Pain in right upper arm (principal)
CPT/HCPCS: 73030; 73060; 99212

== ENCOUNTER → 2025-05-03 11:41 | Outpatient (BNV) | payer MEDICARE, OTHER, SELFPAY | PROVIDERS: PCP Internal Medicine; Visit Provider Radiology Diagnostic Radiology | DX: M79.621 Pain in right upper arm (principal) | CPT/HCPCS: 73030; 73060 ==

== ENCOUNTER 2025-05-06 13:42 | Outpatient (AMB) | payer MEDICARE, OTHER, SELFPAY ==
--- OUTSIDE RECORDS SUMMARY | 2024-07-31 09:45 | XMS_ITS ---
Author Organization [facility] Address [address] [place] [address] Care Team Providers Care Cigarette Vendor Name Role Phone Heather CONNORS, Magy Todd Primary Care Provider Un available Bruce Dorsey Unavailable [phone] Encounters Encounter Location Date Provider Diagnosis [address] [address] 07/31/2024 Bruce Dorsey Plan Of Treatment No Information Progress Notes * JACOBS, Jocelyn MDOB: [birth year] (89 yo F)Acc No.[id number]:07/31/2024 Progress Note Patient: Jocelyn HYDE Provider: Abdiaziz Dorsey DPM :1935 A ge:88 Y S ex:Female Date:07/31/2024 Address:[address] [place] [address] [address], [place] [facility] Pcp:Louie Anderson Subjective: * Chief Complaints: * [...] 10/01/2023 Generated for Printi ng/Faxing/eTransmitting on: 0 05/06/2025 05:33 PM EDT
--- OUTSIDE RECORDS SUMMARY | 2024-08-11 05:15 | XMS_ITS ---
Author Organization [facility] Address [address] [place] [address] Care Team Providers Care Hot Mill Operator Name Role Phone Heather CONNORS, Magy Todd Primary Care Provider Un available Bruce Dorsey Unavailable [phone] Encounters Encounter Location Date Provider Diagnosis [address] [address] 08/11/2024 Bruce Dorsey Plan Of Treatment No Information Progress Notes * JACOBSJocelyn MDOB: [birth year] (89 yo F)Acc No.[id number]:08/11/2024 Progress Note Patient: Jocelyn HYDE Provider: Abdiaziz Dorsey DPM :1935 A ge:88 Y S ex:Female Date:08/11/2024 Address:[address] [place] [address] [address], [id number] Pcp:Louie [place] Subjective: * Chief Complaints: * [...] 10/12/2023 Generated for Printi ng/Faxing/eTransmitting on: 0 05/06/2025 05:33 PM EDT
--- NOTE | 2025-05-06 13:55 | AM.OFFVISNUR ---
Intake Visit Reasons: B-12 Allergies No Known Allergies Allergy (Verified 05/03/25 10:54) Nursing Note Pt came in ambulated (I) gait steady. Medicated x 1 with Vitamin B12 injection to left deltoid. Pt tolerated well. Office Meds cyanocobalamin (vitamin B-12) 1,000 mcg/mL injection solution Performing Provider: Magy Romero MD Performing Location: [facility] [place] [facility] Primary [facility] Administered by: Alva Wang on 05/06/25 13:56 Dose Route Admin Location Dispensed Lot Number Expiration Date [facility] [employer] 1,000 mcg IM left deltoid 1 mL [id number] 04/14/26 85244-763-92 [employer] Total Dispensed Waste 1 mL 0 % Assessment & Plan Assessment & Plan Orders: Orders AMB Vitamin B12 Injection Patient Supplied Today E53.8 - Deficiency of other specified B group vitamins Coding
--- OUTSIDE RECORDS SUMMARY | 2025-05-06 17:33 | XMS_ITS | Patient Health Record ---
Author Organization [facility] Address [address] [place] [address] Care Team Providers Care Frozen Meat Cutter Name Role Phone Heather CONNORS, Magy Primary Care Provider Brian Tam Unavailable [phone] SALOMÓN CHAMPION Unavailable Unavailable Allergies Allergen (clinical [...] Problem Status W/U Status Risk Notes Problem 54243200 Cough (R05) Active confirmed Problem 157517233 Gastroesophageal reflux disease with esophagitis (K21.0) Active confirmed Problem 68655428 Erosive esophagi tis (K22.10) Active confirmed Problem 34090624 Constipation, unspecified constipation type (K59.00) Active confirmed Problem 06165159 Esophagitis (K20.9) Active confirmed Problem 41416607 Lower abdominal pain (R10.30) Active confirmed Plan Of Treatment Pending Test Test Name Order Date XR CHEST 2 VIEW PA & LAT 04/25/2021 Future Test Test Name Order Date UPPER GI ENDOSCOPY 11/13/2016 Insurance Providers Payer Name Payer Address Payer Phone Subscriber Number Group Number Insured Name Patient Relationship to Insured Coverage Start Date Coverage End Date MEDICARE OF [place] [address] [facility] [place] [address] [phone] [id number] JACOBS , HITESH Self - patient is the insured [employer] [address] [place] [address] [id number] FAHAD JACOBSIS Self - patient is the [...] Tremors Elevated cholesterol Degenerative joint disease Denies MO,DM,CVA,Lung disease,renal dise ase Surgical History Surgery Date(Month/Year) Cataracts/lens implants 10/2006
--- OUTSIDE RECORDS SUMMARY | 2025-05-06 17:33 | XMS_ITS | Clinical Summary ---
Author Organization [facility] Address [address] [address] Phone Care Team Providers Care [employer] Name Role Phone Magy Romero MD Primary [...] EST) SODIUM 137 133 - 146 mmol/L [facility] POTASSIUM 4.3 3.3 - 5.1 mmol/L [facility] CHLORIDE 100 96 - 108 mmol/L [facility] CO2 26 21 - 35 mmol/L [facility] BUN 22(H) 6 - 19 mg/dL [facility] CREATININE 0.90 0.5 - 1.5 mg/dL [facility] GLUCOSE 107(H) 70 - 99 mg/dL [facility] ALBUMIN 2.9(L) 3.9 - 4.8 g/dL [facility] TOTAL PROTEIN 5.0(L) 6.5 - 8.0 g/dL [facility] CALCIUM 7.8(L) 8.4 - 10.3 mg/dL [facility] ALKALINE PHOSPHATASE 59 39 - 117 U/L [facility] TOTAL BILIRUBIN <0.2 0.0 - 1.2 mg/dL [facility] AST 29 0 - 37 U/L [facility] ALT 13 0 - 40 U/L [facility] GLOBULIN 2.1 1 - 4.8 g/dL [facility] EGFR 62 >59 mL/min/1.7 3m2 [facility] Comment:Estimated glomerular filtration rate calculated using the CKD-EPI refit equation. ANION GAP 15 10 - 20 mmol/L [facility] Blood 10/08/2024 8:01 AM EST 10/08/2024 10:51 AM EST us Ravi Rivera MD LAB BLOOD ORDERABLES Zara talley Result [facility] [address] [place] [address] from Last 3 Months or Most Recently Relevant to Health Maintenance Insurance MEDICARE PART A & B [employer] MEDICARE SUPPLEMENT [facility] Address: [address] [address] [facility] MEDICARE PART A & B [employer] MEDICARE SUPPLEMENT [facility] Address: [address] [address] [facility] MEDICARE PART A & B [facility] MEDICARE SUPPLEMENT [facility] Address: [address] [address] [facility] MEDICARE PART A & B [facility] MEDICARE SUPPLEMENT [facility] Address: [address] [address] [facility] MEDICARE PART A & B [employer] MEDICARE SUPPLEMENT [facility] Address: [address] [address] [facility] MEDICARE PART A & B [employer] MEDICARE SUPPLEMENT [facility] Care Teams [employer] Relationship Specialty Start Date End Date Magy Romero MD [employer] [facility] [place] [address] PCP - General Internal Medicine 02/07/23 Additional Source Comments The information contained in this document represents components of the legal health record. It is not the complete legal health record.[facility]
--- OUTSIDE RECORDS SUMMARY | 2025-05-06 17:34 | XMS_ITS | Patient Health Record ---
Author Organization [facility] Address [address] [place] [address] Care Team Providers Care Cleaner And Polisher Name Role Phone Heather CONNORS, Magy Todd Primary Care Provider Un available Bruce Dorsey Unavailable [phone] Allergies Allergen (clinical drug ingredient) Drug/Non Drug [...] W/U Status Risk Notes Problem Age-related osteoporosis (815915384) Age-related osteoporosis without current pathological fracture (M81.0) Active confirmed Problem Bilateral atherosclerosis of arteries of lower limbs (disorder) ([id number] ) Atherosclerosis of [place] artery of both lower extremities, with unspecified presence of clinical manifestation (I70.203) Active confirmed Encounters Encounter Location Date Provider Diagnosis [facility] [address] [address] 07/29/2024 Bruce Dorsey [facility] [address] [address] 08/11/2024 Bruce Dorsey Plan Of Treatment Pending Test Test Name Order Date X ray : Foot, right 3V 12/28/2022 34993-PPOKWCM NAIL, 6 OR MORE 02/05/2023 81863-RPFJIPQ NAIL, 6 OR MORE 11/13/2022 60776-RWECNOO NAIL, 6 OR MORE 04/16/2023 89799-KUWQKWC NAIL, 6 OR MORE 07/02/2023 63736-EFNXWOH NAIL, 6 OR MORE 09/20/2023 97426-ARFTVBL NAIL, 6 OR MORE 12/03/2023 83685-ZSIPMBV NAIL, 6 OR MORE 02/25/2024 60801-VDMVRHI NAIL, 6 OR MORE 05/05/2024 66139-MQKMWRR NAIL, 6 OR MORE 10/16/2011 09365-JNWHVDW NAIL, 6 OR MORE 01/15/2012 35460-RDCOMLO NAIL, 6 OR MORE 04/22/2012 76880-KDZXOTI NAIL, 6 OR MORE 07/22/2012 11081-JCTVBHA NAIL, 6 OR MORE 10/07/2012 53273-MJJLHRF NAIL, 6 OR MORE 12/30/2012 72257-JCIZZVQ NAIL, 6 OR MORE 03/31/2013 97048-ROGTENA NAIL, 6 OR MORE 06/30/2013 33913-BOPJEFA NAIL, 6 OR MORE 10/06/2013 21117-BOZNGIU NAIL, 6 OR MORE 01/05/2014 49529-WYBSFMG NAIL, 6 OR MORE 07/06/2014 84680-DVBOSMP NAIL, 6 OR MORE 10/26/2014 80324-PYIPGBA NAIL, 6 OR MORE 01/04/2015 19552-FCYYSFW NAIL, 6 OR MORE 04/05/2015 20342-DHQCZCC NAIL, 6 OR MORE 06/14/2015 68218-OZIAOQI NAIL, 6 OR MORE 04/02/2014 40818-FFKVXXM NAIL, 6 OR MORE 09/06/2015 94609-QVCEEAL NAIL, 6 OR MORE 12/02/2015 77416-JUKUQXU NAIL, 6 OR MORE 02/10/2016 95507-AMARRWJ NAIL, 6 OR MORE 04/13/2016 66548-LEQUNXZ NAIL, 6 OR MORE 06/22/2016 27673-HPJOWYN NAIL, 6 OR MORE 09/04/2016 77799-NOHSAWG NAIL, 6 OR MORE 11/16/2016 56390-KTLZZWA NAIL, 6 OR MORE 01/29/2017 69144-XVYWHDT NAIL, 6 OR MORE 04/12/2017 45609-MSRFXVN NAIL, 6 OR MORE 06/25/2017 92536-MRVQSYT NAIL, 6 OR MORE 09/03/2017 94559-EXETQNS NAIL, 6 OR MORE 11/08/2017 04969-BMXQOPD NAIL, 6 OR MORE 01/10/2018 05066-CWXBTRX NAIL, 6 OR MORE 03/25/2018 67136-MINEQAA NAIL, 6 OR MORE 05/27/2018 35383-EGUMEKU NAIL, 6 OR MORE 09/09/2018 20618-UOKGDTD NAIL, 6 OR MORE 12/05/2018 17714-YNDUIVW NAIL, 6 OR MORE 02/24/2019 88018-OXVYSAS NAIL, 6 OR MORE 05/29/2019 35146-CGUULQI NAIL, 6 OR MORE 08/04/2019 54851-FJVLINO NAIL, 6 OR MORE 11/10/2019 73198-MMVGRXZ NAIL, 6 OR MORE 02/02/2020 66036-RYGEHLZ NAIL, 6 OR MORE 04/12/2020 79645-XTXWCMJ NAIL, 6 OR MORE 06/24/2020 53283-ZPJKATZ NAIL, 6 OR MORE 09/13/2020 61392-VBENVTT NAIL, 6 OR MORE 12/20/2020 30887-MJVQMXI NAIL, 6 OR MORE 02/28/2021 08086-CMZRBPS NAIL, 6 OR MORE 05/16/2021 00734-MWMJBBP NAIL, 6 OR MORE 09/15/2021 44372-USSSGTJ NAIL, 6 OR MORE 11/17/2021 94694-JTWGLIH NAIL, 6 OR MORE 02/02/2022 41345-PCVDENJ NAIL, 6 OR MORE 04/24/2022 31567-ZGDGWFS NAIL, 6 OR MORE 07/06/2022 53186-SCWNRVN NAIL, 6 OR MORE 09/11/2022 86798-Tiirxixz Plate 06/01/2022 25774-Zioyvpkz Plate 09/11/2022 33368-Zzjenrzz Plate 04/24/2022 13982-Iasooklm Plate 02/02/2022 92305-Jhovvdyk Plate 11/17/2021 61595-Inwdwvxr Plate 09/15/2021 90195-Xxpenibn Plate 05/16/2021 93539-Fyqycngy Plate 02/28/2021 84354-Jawbedgx Plate 12/20/2020 97397-Counkkvu Plate 09/13/2020 61700-Pgfaijmj Plate 06/24/2020 85911-Wjbfcwyu Plate 10/07/2012 74496-Ggdgdxoy Plate 04/12/2020 93215-Vxekgpeg Plate 02/02/2020 34880-Ftyrwakv Plate 11/10/2019 96195-Vwutbwso Plate 12/05/2018 85400-Aoopjqdx Plate 09/09/2018 57482-Qwpwbidr Plate 05/27/2018 21513-Sschcrar Plate 01/10/2018 92815-Urunxppj Plate 04/12/2017 68124-Wdlnhrne Plate 09/04/2016 65491-Wtnswvoa Plate 09/06/2015 81225-Viudmsmm Plate 04/02/2014 94117-Muqikkpa Plate 06/14/2015 84170-Diamzquz Plate 04/05/2015 91856-Emhmntqd Plate 01/04/2015 86310-Qjwivdme Plate 10/26/2014 05870-Hntvkdmy Plate 07/06/2014 28784-Dnacamwz Plate 06/30/2013 46318-Blppriyq Plate 01/15/2012 90633-Vibslgcm Plate 02/25/2024 28141-Zyverzag Plate 12/03/2023 31349-Shphtgkl Plate 07/02/2023 60989-Uhglyskx Plate 04/16/2023 13310-Uudchxlw Plate 11/13/2022 98489-Uzbbtdfk Plate 02/05/2023 23468-Jasjwarc Plate Each Additional 10/2014 40992-Swoqcncn Plate Each Additional 07/2015 08602-Dlpkgmlo Plate Each Additional 06/2015 07352-Hujudxpq Plate Each Additional 11973-Rnutmehm Plate Each Additional 07/2019 19361-Fydiprmg Plate Each Additional 11183-Ifjwsota Plate Each Additional 93273-Zmumczqm Plate Each Additional 89738-Mczzygfp Plate Each Additional 01/2021 24558-Odtogohv Plate Each Additional 55158-Orjspqcu Plate Each Additional 34015-Bppczqbn Plate Each Additional 01283-Mrhveyuu Plate Each Additional 05/2022 05941 I&D ABSCESS- SIMPLE,SINGLE 014 42583 I&D ABSCESS- SIMPLE,SINGLE 012 31294 I&D ABSCESS- SIMPLE,SINGLE 023 07566-RPTO SKIN LESIONS, OVER 4 05/05/20 24 08701-VBAX SKIN LESIONS, OVER 4 02/06/20 23 38192-OGQC SKIN LESIONS, OVER 4 11/14/19 23 71389-AHUD SKIN LESIONS, OVER 4 04/16/20 23 05581-DWQJ SKIN LESIONS, OVER 4 07/02/20 23 85722-ODSN SKIN LESIONS, OVER 4 09/20/19 24 72085-YONK SKIN LESIONS, OVER 4 12/03/19 24 66159-HKZI SKIN LESIONS, OVER 4 02/25/20 24 16558-LXBA SKIN LESIONS, OVER 4 09/04/19 17 05736-YMLC SKIN LESIONS, OVER 4 11/17/19 17 56503-ZYNT SKIN LESIONS, OVER 4 01/30/20 17 71242-YTKK SKIN LESIONS, OVER 4 06/22/20 16 95160-GGFD SKIN LESIONS, OVER 4 04/13/20 16 50333-NGNB SKIN LESIONS, OVER 4 04/12/20 17 66474-KRHP SKIN LESIONS, OVER 4 06/25/20 17 30098-ZGCZ SKIN LESIONS, OVER 4 11/09/19 18 76977-OJLQ SKIN LESIONS, OVER 4 09/03/19 18 91120-EOOX SKIN LESIONS, OVER 4 02/03/20 69656-VZOV SKIN LESIONS, OVER 4 11/18/19 74378-JJMP SKIN LESIONS, OVER 4 04/24/20 78752-XEAS SKIN LESIONS, OVER 4 07/06/20 34247-CFVI SKIN LESIONS, OVER 4 09/11/19 23 42870-WULO SKIN LESIONS, OVER 4 09/15/19 05585-LJOP SKIN LESIONS, OVER 4 05/16/20 21 53863-XIPO SKIN LESIONS, OVER 4 02/29/20 55482-CENO SKIN LESIONS, OVER 4 12/21/19 21 24036-YTHH SKIN LESIONS, OVER 4 09/13/19 23637-SGBU SKIN LESIONS, OVER 4 06/24/20 20 32089-CIRL SKIN LESIONS, OVER 4 11/10/19 15214-UNZN SKIN LESIONS, OVER 4 08/04/20 19 09728-XOBV SKIN LESIONS, OVER 4 02/02/20 20 61826-IILE SKIN LESIONS, OVER 4 04/12/20 49301-DVUP SKIN LESIONS, OVER 4 12/06/19 19 95709-FEHJ SKIN LESIONS, OVER 4 05/29/20 40055-DELW SKIN LESIONS, OVER 4 02/25/20 19 67415-GMMA SKIN LESIONS, OVER 4 01/11/20 18 84941-CNAY SKIN LESIONS, OVER 4 03/25/20 18 77301-TOYM SKIN LESIONS, OVER 4 05/27/20 18 34417-UEIP SKIN LESIONS, OVER 4 09/09/19 19 22120-BKXJ SKIN LESIONS, 2 TO 4 06/14/20 15 02164-SDJL SKIN LESIONS, 2 TO 4 04/05/20 15 98630-PTXC SKIN LESIONS, 2 TO 4 04/02/20 14 09244-ILGH SKIN LESIONS, 2 TO 4 09/06/19 16 56294-LGYG SKIN LESIONS, 2 TO 4 02/10/20 16 69897-SUWQ SKIN LESIONS, 2 TO 4 12/02/19 16 92988-ZIEY SKIN LESIONS, 2 TO 4 01/15/20 12 47506-SXVA SKIN LESIONS, 2 TO 4 07/22/20 12 01307-FSCG SKIN LESIONS, 2 TO 4 04/22/20 12 13826-FCXF SKIN LESIONS, 2 TO 4 06/30/20 13 06601-JGDE SKIN LESIONS, 2 TO 4 03/31/20 13 26598-VWPF SKIN LESIONS, 2 TO 4 12/31/19 13 57184-OJFK SKIN LESIONS, 2 TO 4 10/07/19 13 05063-VXPT SKIN LESIONS, 2 TO 4 07/06/20 14 43321-FQEG SKIN LESIONS, 2 TO 4 01/06/20 14 89043-WFGC SKIN LESIONS, 2 TO 4 10/06/19 14 49771-PZMX SKIN LESIONS, 2 TO 4 01/05/20 15 01833-CCMM SKIN LESIONS, 2 TO 4 10/27/19 15 Insurance Providers Payer Name Payer Address Payer Phone Subscriber Number Group Number Insured Name Patient Relationship to Insured Coverage Start Date Coverage End Date Medicare [employer] [address] [place] [address] [id number] Jocelyn Mejia Self - patient is the insured 2 [employer] Life [address] [place] [address] [id number] Brandon Mejia Spouse - patient is the spouse of the insured Medical (General) History Medical History History ICD Code Arthritis back pain Cholesterol Hiatal hernia osteoporosis reflux hypertension ASO/PVD Arthritis - Degenerative Surgical History Surgery Date(Month/Year) Hospitalization History Reason Date(Month/Year) [facility] Acid reflux 09/08-09/12 [facility]- Flu 10/15
== END 2025-05-06 14:50 | disposition home or self-care (01) ==
LOC: HO.HMCC 13:43
PROVIDERS: PCP Internal Medicine; Visit Provider Internal Medicine
DX: E53.8 Deficiency of other specified B group vitamins (principal)

== ENCOUNTER → 2025-05-06 13:42 | Outpatient (BNVA) | payer MEDICARE, OTHER, SELFPAY | PROVIDERS: PCP Internal Medicine; Visit Provider Internal Medicine | DX: E53.8 Deficiency of other specified B group vitamins (principal) | CPT/HCPCS: 96372; J3420 ==

== ENCOUNTER 2025-05-13 12:20 | Outpatient (REF) | payer MEDICARE, OTHER, SELFPAY ==
--- OUTSIDE RECORDS SUMMARY | 2025-05-13 14:32 | XMS_ITS | Clinical Summary ---
Author Organization [facility] Address [address] [address] Phone Care Team Providers Care Installation Technician Name Role Phone Magy Romero MD Primary [...] EST) SODIUM 137 133 - 146 mmol/L [facility] POTASSIUM 4.3 3.3 - 5.1 mmol/L [facility] CHLORIDE 100 96 - 108 mmol/L [facility] CO2 26 21 - 35 mmol/L [facility] BUN 22(H) 6 - 19 mg/dL [facility] CREATININE 0.90 0.5 - 1.5 mg/dL [facility] GLUCOSE 107(H) 70 - 99 mg/dL [facility] ALBUMIN 2.9(L) 3.9 - 4.8 g/dL [facility] TOTAL PROTEIN 5.0(L) 6.5 - 8.0 g/dL [facility] CALCIUM 7.8(L) 8.4 - 10.3 mg/dL [facility] ALKALINE PHOSPHATASE 59 39 - 117 U/L [facility] TOTAL BILIRUBIN <0.2 0.0 - 1.2 mg/dL [facility] AST 29 0 - 37 U/L [facility] ALT 13 0 - 40 U/L [facility] GLOBULIN 2.1 1 - 4.8 g/dL [facility] EGFR 62 >59 mL/min/1.7 3m2 [facility] Comment:Estimated glomerular filtration rate calculated using the CKD-EPI refit equation. ANION GAP 15 10 - 20 mmol/L [facility] Blood 10/08/2024 8:01 AM EST 10/08/2024 10:51 AM EST us Ravi Rivera MD LAB BLOOD ORDERABLES Zara talley Result [facility] [address] [place] [address] from Last 3 Months or Most Recently Relevant to Health Maintenance Insurance MEDICARE PART A & B [employer] MEDICARE SUPPLEMENT [facility] Address: [address] [address] [facility] MEDICARE PART A & B [employer] MEDICARE SUPPLEMENT [facility] Address: [address] [address] [facility] B [facility] MEDICARE SUPPLEMENT [facility] Address: [address] [address] [facility] & B [facility] MEDICARE SUPPLEMENT [facility] Address: [address] [address] [facility] MEDICARE PART A & B [employer] MEDICARE SUPPLEMENT [facility] Address: [address] [address] [facility] MEDICARE PART A & B [employer] MEDICARE SUPPLEMENT [facility] Care Teams Installation Technician Relationship Specialty Start Date End Date Magy Romero MD [facility] [place] [id number] PCP - General Internal Medicine 02/07/23 Additional Source Comments The information contained in this document represents components of the legal health record. It is not the complete legal health record.[facility]
[2025-05-13 15:00] LABS: Folate 13.4 ng/mL (> or = 4.0); Vitamin B12 523 pg/mL (200-900)
== END 2025-05-13 12:21 | disposition home or self-care (01) ==
LOC: HO.HMGCLDS 12:20
PROVIDERS: PCP Internal Medicine; Visit Provider Internal Medicine
DX: E53.8 Deficiency of other specified B group vitamins (principal)
CPT/HCPCS: 36415; 82607; 82746

== ENCOUNTER 2025-05-17 09:04 | Outpatient (AMB) | payer MEDICARE, OTHER, SELFPAY ==
--- OUTSIDE RECORDS SUMMARY | 2024-07-31 09:45 | XMS_ITS ---
Author Organization [facility] Address [address] [place] [address] Care Team Providers Care Instrument Maker Apprentice Name Role Phone Heather CONNORS, Magy Todd Primary Care Provider Un available Bruce Dorsey Unavailable [phone] Encounters Encounter Location Date Provider Diagnosis [address] [address] 07/31/2024 Bruce Dorsey Plan Of Treatment No Information Progress Notes * JACOBSJocelyn MDOB: [birth year] (89 yo F)Acc No.[id number]:07/31/2024 Progress Note Patient: Jocelyn HYDE Provider: Abdiaziz Dorsey DPM :1935 A ge:88 Y S ex:Female Date:07/31/2024 Address:[address] [place] [address] [address], [id number] Pcp:Louie Anderson Subjective: * Chief Complaints: * [...] 10/01/2023 Generated for Printi ng/Faxing/eTransmitting on: 0 05/17/2025 10:38 AM EDT
[2025-05-17 09:27] VITALS: BP 112/60; PULSE 62; RESP 16; TEMP 36.5; O2SAT 99; BMI 21.1
--- NOTE | 2025-05-17 09:27 | A.OFFPC_ITS ---
Vital Signs 05/17/25 09:27 Height 5 ft 4 in Weight 123 lb BMI 21.1 BP 112/60 Blood Pressure Location Lt brachial Position Sitting Respiration 16 Pulse 62 Pulse Source Pulse Oximeter Temp 97.7 F Temp Source Oral Pulse Oximetry (%) 99 Oxygen Delivery Method Room Air Intake Visit Reasons: f/up from walk in visit 05/03 rt arm pain Intake Note: Pt is here today to f/u from the walkin c/o Rt arm pain Allergies No Known Allergies Allergy (Verified 05/17/25 10:08) Medication List - Last Reconciled 05/17/25 by Magy Romero MD acetaminophen-codeine 300-15 mg 1 tab PO DAILY PRN ascorbic acid (vitamin C) 1 g PO DAILY 90 days buspirone 7.5 mg PO BEDTIME cholecalciferol (vitamin D3) 25 mcg PO DAILY cyanocobalamin (vitamin B-12) 1,000 mcg IM Q4W 3 months denosumab (Prolia) 60 mg subcut [id number] lisinopril 2.5 mg PO DAILY methenamine hippurate 1 g PO DAILY 90 days Held on 03/07/25. Instructions: Resume on 03/10/25. miscellaneous medical supply Elevated toilet seat with handles omeprazole 20 mg PO DAILY@0630 primidone 2 tablets in the morning and 3 tablets at bedtime; 90 days propranolol ER 60 mg PO DAILY 90 days Tobacco use date assessed: 05/17/25 Fall risk assessment: No Falls in past year Last assessed Fall Risk: 05/17/25 Dental Screening Dental Screen Date: 05/17/25 Did you have a dental visit in the last 12 months?: No Did you have a dental problem in the last 6 months where you did not have access to dental care?: No Was dental information given to patient?: Patient declined HPI f/up from walk in visit 05/03 rt arm pain HPI Details The patient is an 89-year-old female presenting with pain over right biceps. The issue began after moving a table with a safe on it, The patient reports pain and stiffness in the right biceps, which is exacerbated by overhead movements and alleviated by heat application. The patient has been using Voltaren and Tylenol Arthritis for pain management, with limited relief. She has also tried using a patch and ice, but found them ineffective and uncomfortable, respectively. She took a tablet of her Tylenol with codeine which did help. Would like to see if she can get another refill. The patient has a history of vitamin B12 deficiency, with current levels at 523, which is within the normal range. She receives monthly B12 injections, which have become increasingly painful, and is considering oral supplementation. 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 Mother Arthritis Son No problems noted. Daughter No problems noted. Brother No problems noted. Social History Household Members: None Housing: Other Housing Other:: Supportive Housing. Do you presently have visiting nurse or other home services: Yes Alcohol intake: former Patient Tobacco Use Status: Never used Tobacco Tobacco use type: Cigarette e-Cigarette/Vaping Use: Never Used Second Hand Smoke Exposure: Yes Advance Directives Date on File: 03/11/24 service: No Current occupational status: retired Current occupation: Retired Cognitive needs: No Hearing needs: No Vision needs: Yes Questionnaire PHQ-9 Over the last 2 weeks, how often have you been bothered by any of the following problems? 1. Little interest or pleasure in doing things: not at all 2. Feeling down, depressed, or hopeless: not at all 3. Trouble falling or staying asleep, or sleeping too much: not at all 4. Feeling tired or having little energy: several days 5. Poor appetite or overeating: more than half the days 6. Feeling bad about yourself - or that you are a failure or have let yourself or your family down: more than half the days 7. Trouble concentrating on things, such as reading the newspaper or watching television: more than half the days 8. Moving or speaking so slowly that other people could have noticed. Or the opposite - being so fidgety or restless that you have been moving around a lot more than usual: more than half the days 9. Thoughts that you would be better off or of hurting yourself in some way: not at all Total score: 9 Depression Screening Interpretation: Positive (Controlled on buspirone) Depression Screening Follow-up: Existing condition and In treatment Depression Screening Done: Yes Source: Developed by Drs. Brian Gomez, Peg Reyez, John Saucedo and colleagues, with an educational tati from [email or web address]. Thrive Questionnaire Date Thrive assessed: 08/31/24 I am a: Patient What is your living situation today?: I choose not to answer this question Within the past 12 months, did the food you bought not last and you didn't have the money to get more?: I choose not to answer this question Within the past 12 months, did you worry whether your food would run out before you got money to buy more?: I choose not to answer this question Do you have trouble paying for medicines?: I choose not to answer this question Do you have trouble getting transportation to medical appointments?: I choose not to answer this question Do you have trouble paying your heating and electricity bill?: I choose not to answer this question Do you have trouble taking care of your child, family member or friend?: I choose not to answer this question Do you have trouble with day-to-day activities such as bathing, preparing meals, shopping, managing finances, etc.?: I choose not to answer this question Are you currently unemployed and looking for a job?: I choose not to answer this question Are you interested in more education?: I choose not to answer this question Please select the resources that you would like help with: None Currently or been in a relationship where the following occur: I choose not to answer THRIVE Score: 0 AUDIT C Alcohol Use Questionnaire (AUDIT-C) 1. How often do you have a drink containing alcohol?: Never Total Score: 0 MICHAEL-7 AMB Questionnaire MICHAEL-7 Date MICHAEL - 7 assessed: 03/18/25 Feeling nervous, anxious, or on edge: 0 = Not at all Not being able to stop or control worryin = Not at all Worrying too much about different things: 0 = Not at all Trouble relaxin = Not at all Being so restless that it is hard to sit still: 0 = Not at all Becoming easily annoyed or irritable: 0 = Not at all Feeling afraid as if something awful might happen: 0 = Not at all Total MICHAEL-7 score (0-4 normal; 5-9 mild; 10-14 moderate; 15-21 severe): 0 Source: Developed by Drs. Brian Goemz, Peg Reyez, John Saucedo and colleagues, with an educational tati from [email or web address]. Review of Systems Const All systems reviewed & are unremarkable except as noted in HPI and below Neuro Denies Sensory deficit (Neuro) Physical exam (Primary Care) Vital Signs: Last Vital Signs Temp 97.7 F 05/17/25 09:27 Pulse 62 05/17/25 09:27 Resp 16 05/17/25 09:27 BP 112/60 05/17/25 09:27 Pulse Ox 99 05/17/25 09:27 Oxygen Delivery Method Room Air 05/17/25 09:27 BMI result Body Mass Index 21.1 Tobacco/Smoking Status: Tobacco use Status Tobacco use date assessed 05/17/25 05/17/25 09:33 Patient Tobacco Use Status Never used Tobacco 05/17/25 09:33 Tobacco use type Cigarette 05/17/25 09:33 e-Cigarette/Vaping Use Never Used 05/17/25 09:33 PHQ-9: PHQ-9 Score PHQ-9: Total score 9 05/17/25 09:33 Depression Screening Interpretation: Positive (Controlled on buspirone) Depression Screening Follow-up: Existing condition and In treatment Thrive Assessment: Date of Thrive Assessment Date Thrive assessed 08/31/24 05/17/25 09:33 Currently or been in a relationship where the following occur: I choose not to answer Const General: no acute distress Orientation/consciousness: patient oriented x3 HENMT Head: Yes normocephalic Ears: external ears normal General nose exam: Normal external nose present Face and sinus: Yes face symmetric Mouth: Normal oral and palatal mucosa present and moist mucous membranes Eyes General: appearance normal, both eyes and all related structures Neck Neck: Yes full ROM, Yes no lymphadenopathy and Yes supple Resp Auscultation: clear to auscultation bilaterally Cardio Rate: regular rate Rhythm: regular rhythm Heart sounds: S1 normal heart sound present and S2 normal heart sound present GI Palpation (GI): Soft to palpation, nontender and no guarding Skin General skin exam: no rashes or lesions noted Neuro General: patient oriented x3, gait normal and Normal light touch and pain sensation Sensory Exam: No Sensory deficit (Neuro) Extrem Other: Tenderness on palpation over right biceps, no gross bone deformity, no joint swelling seen. Limited range of motion of right upper arm more than 90 degrees due to pain. Coding Level of Care Code Est Pt Level 4 (99649) Diagnoses Strain of muscle, fascia and tendon of other parts of biceps, right arm, sequela S46.211S Assessment & Plan Assessment & Plan (1) Strain of muscle, fascia and tendon of other parts of biceps, right arm, sequela: Code(s): S46.211S - Strain of muscle, fascia and tendon of other parts of biceps, right arm, sequela Plan: advised to continue using heat therapy and perform gentle geqwn-ty-[id number] exercises to improve flexibility and reduce stiffness. Voltaren and Tylenol Arthritis are recommended for pain management, avoid activities that exacerbate the pain. Prescription sent for short course of Tylenol with codeine, to take half a tablet to a whole tablet once a day as needed for severe pain. Medications: Refilled acetaminophen-codeine 300-15 mg 1 tab PO DAILY PRN 10 tabs 0RF pain (scale score 7-10) I10 - Essential (primary) hypertension, I83.90 - Asymptomatic varicose veins of unspecified lower extremity, M48.061 - Spinal stenosis, lumbar region without neurogenic claudication
--- OUTSIDE RECORDS SUMMARY | 2025-05-17 10:38 | XMS_ITS | Clinical Summary ---
Author Organization [facility] Address [address] [address] Phone Care Team Providers Care Environmental Health And Safety Leader Name Role Phone Magy Romero MD Primary [...] EST) SODIUM 137 133 - 146 mmol/L [facility] POTASSIUM 4.3 3.3 - 5.1 mmol/L [facility] CHLORIDE 100 96 - 108 mmol/L [facility] CO2 26 21 - 35 mmol/L [facility] BUN 22(H) 6 - 19 mg/dL [facility] CREATININE 0.90 0.5 - 1.5 mg/dL [facility] GLUCOSE 107(H) 70 - 99 mg/dL [facility] ALBUMIN 2.9(L) 3.9 - 4.8 g/dL [facility] TOTAL PROTEIN 5.0(L) 6.5 - 8.0 g/dL [facility] CALCIUM 7.8(L) 8.4 - 10.3 mg/dL [facility] ALKALINE PHOSPHATASE 59 39 - 117 U/L [facility] TOTAL BILIRUBIN <0.2 0.0 - 1.2 mg/dL [facility] AST 29 0 - 37 U/L [facility] ALT 13 0 - 40 U/L [facility] GLOBULIN 2.1 1 - 4.8 g/dL [facility] EGFR 62 >59 mL/min/1.7 3m2 [facility] Comment:Estimated glomerular filtration rate calculated using the CKD-EPI refit equation. ANION GAP 15 10 - 20 mmol/L [facility] Blood 10/08/2024 8:01 AM EST 10/08/2024 10:51 AM EST us Ravi Rivera MD LAB BLOOD ORDERABLES Zara talley Result [facility] [address] [place] [address] from Last 3 Months or Most Recently Relevant to Health Maintenance Insurance MEDICARE PART A & B [employer] MEDICARE SUPPLEMENT [facility] MEDICARE PART A & B [employer] MEDICARE SUPPLEMENT [facility] MEDICARE PART A & B [facility] MEDIC[facility] SUPPLEMENT [facility] MEDICARE PART A & B [facility] MEDICARE SUPPLEMENT [facility] MEDICARE PART A & B [employer] MED[facility]ARE SUPPLEMENT [facility] MEDICARE PART A & B [employer] MEDICARE SUPPLEMENT [facility] Care Teams Environmental Health And Safety Leader Relationship Specialty Start Date End Date Magy Romero MD [facility] [place] [address] PCP - General Internal Medicine 02/07/23 Additional Source Comments The information contained in this document represents components of the legal health record. It is not the complete legal health record.[facility]
--- OUTSIDE RECORDS SUMMARY | 2025-05-17 10:38 | XMS_ITS | Patient Health Record ---
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 Name Role Phone Heather CONNORS, Magy Primary Care Provider Brian Tam Unavailable [phone] SALOMÓN CHAMPION Unavailable Unavailable Allergies Allergen (clinical [...] Problem Status W/U Status Risk Notes Problem 22169116 Cough (R05) Active confirmed Problem 215809358 Gastroesophageal reflux disease with esophagitis (K21.0) Active confirmed Problem 34907081 Erosive esophagi tis (K22.10) Active confirmed Problem 14451022 Constipation, unspecified constipation type (K59.00) Active confirmed Problem 25643266 Esophagitis (K20.9) Active confirmed Problem 73249741 Lower abdominal pain (R10.30) Active confirmed Plan Of Treatment Pending Test Test Name Order Date XR CHEST 2 VIEW PA & LAT 04/25/2021 Future Test Test Name Order Date UPPER GI ENDOSCOPY 11/13/2016 Insurance Providers Payer Name Payer Address Payer Phone Subscriber Number Group Number Insured Name Patient Relationship to Insured Coverage Start Date Coverage End Date MEDICARE OF [place] [address] [facility] [place] [address] [id number] JACOBS , HITESH Self - patient is the insured [email or web address] [address] [place] [address] [id number] [id number] JACOBSIS Self - patient is the [...] Tremors Elevated cholesterol Degenerative joint disease Denies ND,DM,CVA,Lung disease,renal dise ase Surgical History Surgery Date(Month/Year) Cataracts/lens implants 10/2006
== END 2025-05-17 11:13 | disposition home or self-care (01) ==
LOC: HO.HMCC 09:04
PROVIDERS: PCP Internal Medicine; Visit Provider Internal Medicine
DX: S46.211S Strain of muscle, fascia and tendon of other parts of biceps, right arm, sequela (principal)

== ENCOUNTER → 2025-05-17 09:04 | Outpatient (BNVA) | payer MEDICARE, OTHER, SELFPAY | PROVIDERS: PCP Internal Medicine; Visit Provider Internal Medicine | DX: S46.211D Strain of muscle, fascia and tendon of other parts of biceps, right arm, subsequent encounter (principal); I10 Essential (primary) hypertension; M48.061 Spinal stenosis, lumbar region without neurogenic claudication; X58.XXXD Exposure to other specified factors, subsequent encounter | CPT/HCPCS: 96127; 99212 ==

== ENCOUNTER 2025-06-02 13:22 | Outpatient (AMB) | payer MEDICARE, OTHER, SELFPAY ==
--- NOTE | 2025-06-02 13:27 | A.OFFVIS_ITS ---
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 Romero. She presents to the office today for a follow-up of her lower urinary tract symptoms and renal mass. In discussion with the patient today she reports to be doing and feeling well. She denies having had any bothersome urinary issues or concerns since her last office visit here. She does however continue to follow- up with her PCP and Rheumatology for ongoing back and hip pain she continues to experience. In office urinalysis results reviewed with the patient today. PVR 10 mL. She reports compliance with methenamine and vitamin-C as prescribed. We did discussed obtaining more recent renal imaging for further assessment evaluation. She is agreeable. Previous imaging CT scan Abd\Pel on admission 12/18 showing Colitis left hemicolon. 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 Underlying mass can not be excluded along other findings. Cyst was drained on 12/10 with pus removed growing Gram-negative rods causing Proteus bactremia. She currently denies any UTI like symptoms. She denies urinary urgency, urinary frequency, incontinence, hematuria, dysuria, foul smelling urine, changes to urinary stream, flank pain, fever, and or chills. She does report episodes of nocturia up to 3 times per night however does feel she is self managing. We did discussed importance of limiting fluids 2-3 hours prior to bed. She is happy with her current voiding parameters. All questions were answered. She continues to follow-up with oncology for further workup of macrocytic anemia. She otherwise offers no other issues or concerns at this time. 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 Mother Arthritis Son No problems noted. Daughter No problems noted. Brother No problems noted. Social History Household Members: None Housing: Other Housing Other:: Supportive Housing. Do you presently have visiting nurse or other home services: Yes Alcohol intake: former Patient Tobacco Use Status: Never used Tobacco Tobacco use type: Cigarette e-Cigarette/Vaping Use: Never Used Second Hand Smoke Exposure: Yes Advance Directives Date on File: 03/11/24 service: No Current occupational status: retired Current occupation: Retired Cognitive needs: No Hearing needs: No Vision needs: Yes Review of Systems Const Reports as per HPI Eyes Reports no additional complaints ENT Reports no additional complaints Card Reports no additional complaints Resp Reports no additional complaints GI Reports as per HPI Reports as per HPI Musc Reports as per HPI Neuro Reports no additional complaints Psych Reports as per HPI Endo Reports no additional complaints Naif/Lymph Reports as per HPI Aller/Immun Reports no additional complaints Physical Exam Const General: cooperative, healthy appearing, comfortable, no acute distress, well developed, alert and awake Nutritional Appearance: average body habitus Orientation/consciousness: patient oriented x3 Limitations: no limitations HEENT Head: Yes normal to inspection, Yes normocephalic and Yes atraumatic Ears: hearing grossly normal bilaterally Eyes General: appearance normal, both eyes and all related structures Neck Neck: Yes normal visual inspection and Yes trachea midline Chest Chest palpation & inspection: normal inspection of the chest Resp Effort & Inspection: normal respiratory effort and able to speak in complete sentences Cardio Rate: regular rate GI Inspection: Yes normal to inspection General: Yes no CVA tenderness Back/Spine/Pelvis Back: no CVA tenderness Skin General skin exam: no rashes or lesions noted Neuro General: patient oriented x3 Extrem General: Yes normal to inspection Psych Appearance: grossly normal and well kempt Mental Status: mental status grossly normal Speech and movement: Normal speech and movement present and Clear speech present Affect: normal affect Attitude: cooperative Thought process: Normal thought process present Thought content: Normal thought content present Insight: Fair insight present (Psych) Judgement: Fair judgement present (Psych) Office Procedures Post Void Residual Post Residual Void Post Void Residual (PVR): 10 48583-Kexp Void Residual by ultrasound Results AMB Urinalysis, Automated UA Leukoctes 125 Fatoumata/uL Last Edit by EMLLY Leo on 06/02/25 13:43 UA Nitrite Last Edit by MELLY Leo on 06/02/25 13:43 UA Urobilinogen 0.2 mg/dL Last Edit by MELLY Leo on 06/02/25 13:4 3 UA Protein 15 mg/dL Last Edit by Mariel Bustamante CCM on 06/02/25 13:43 UA pH 5.5 Last Edit by Mariel Bustamante CCM on 06/02/25 13:43 UA Blood 0 Chad/uL Last Edit by Mariel Bustamante CCM on 06/02/25 13:43 UA Specific [place] 1.015 Last Edit by MELLY Leo on 06/02/25 13: 43 UA Ketone Last Edit by MELLY Leo on 06/02/25 13:43 UA Bilirubin 0 mg/dL Last Edit by Mariel Bustamante CCM on 06/02/25 13:43 UA Glucose 0 mg/dL Last Edit by Mariel Bustamante CCM on 06/02/25 13:43 Results Reviewed Results Reviewed: Laboratory Last Values Urine pH (Auto) 5.5 06/02/25 13:43 Specific [place] (Auto) 1.015 06/02/25 13:43 Urine Protein (Auto) 15 mg/dL 06/02/25 13:43 Glucose (UA)(Auto) 0 mg/dL 06/02/25 13:43 Urine Blood (Auto) 0 Chad/uL 06/02/25 13:43 Urine Bilirubin (Auto) 0 mg/dL 06/02/25 13:43 Urine Urobilinogen (Auto) 0.2 mg/dL 06/02/25 13:43 Leukocyte Esterase (Auto) 125 Fatoumata/uL 06/02/25 13:43 Assessment & Plan Assessment & Plan (1) Renal cyst: Code(s): N28.1 - Cyst of kidney, acquired Category: Medical (2) Renal mass: Code(s): N28.89 - Other specified disorders of kidney and ureter Category: Medical Plan In office urinalysis results reviewed with the patient today; as noted above PVR 10 mL She denies any UTI like symptoms We discussed the importance of limiting fluids 2-3 hours prior to bed to decrease episodes of nocturia She reports be happy with current voiding parameters Will obtain renal ultrasound for surveillance monitoring and further assessment evaluation All questions were answered Continue methenamine and vitamin-C; refill provided Follow-up in 3-6 months with imaging; or sooner with any issues, concerns, and or questions. Orders: Orders AMB Urinalysis Automated Today Z13.9 - Encounter for screening, unspecified US renal BI 2 Months N20.0 - Calculus of kidney, N28.1 - Cyst of kidney, acquired AMB Post Void Residual by ultrasound Today R33.9 - Retention of urine, unspecified Urine Culture Today A49.9 - Bacterial infection, unspecified, N39.0 - Urinary tract infection, site not specified Medications: New methenamine hippurate 1 g PO DAILY 90 tabs 1RF 90 days N39.0 - Urinary tract infection, site not specified Refilled ascorbic acid (vitamin C) 1 g PO DAILY 90 tabs 1RF 90 days N39.0 - Urinary tract infection, site not specified Discontinued methenamine hippurate Discontinued Reason: Doctor's Order 1 g PO DAILY 90 days 90 tabs 1RF N39.0 - Urinary tract infection, site not specified Patient Instructions: The patient had an opportunity to ask questions regarding the treatment plan. All questions were answered. Physical exam, labs, and imaging were discussed and reviewed in detail. As well as risks, benefits, and discussion of treatment choices. No major barriers to understanding were identified. The patient expressed understanding and agreement with the above treatment plan. The patient was made aware they should contact our office by phone for worsening of their current condition, the appearance of new symptoms, or with any questions or concerns. Compliance is encouraged with any medications and follow up testing that is ordered. It is a privilege to be allowed the opportunity to p articipate in? your urological care.? Again, if you have any questions or concerns If you have any questions or concerns please do not hesitate to contact me. The office is [phone]. This note is constructed using voice recognition software. While every effort has been made to ensure accuracy blow molding machine tender errors may have been included. Yours sincerely, WAQAS Rodney Coding Level of Care Code Est Pt Level 3 (73010) Complex EM visit Add On G2211 Diagnoses Renal cyst N28.1 Renal mass N28.89 CPT Codes Post Residual Void - PVR CPT Code: 77619-Pcnl Void Residual by ultrasound ([id number])
== END 2025-06-02 14:16 | disposition home or self-care (01) ==
LOC: HO.HUSH 13:23
PROVIDERS: PCP Internal Medicine; Visit Provider Nurse Practitioner Family
DX: N28.1 Cyst of kidney, acquired (principal); N28.89 Other specified disorders of kidney and ureter; Z13.9 Encounter for screening, unspecified
CPT/HCPCS: 99213; G2211

== ENCOUNTER 2025-06-02 13:22 | Outpatient (REF) | payer MEDICARE, OTHER, SELFPAY | END 2025-06-02 13:23 | disposition home or self-care (01) | LOC: HO.LAB 13:22 | PROVIDERS: PCP Internal Medicine; Visit Provider Nurse Practitioner Family | DX: N28.1 Cyst of kidney, acquired (principal); N28.89 Other specified disorders of kidney and ureter; N20.0 Calculus of kidney; N39.0 Urinary tract infection, site not specified; A49.9 Bacterial infection, unspecified; Z79.899 Other long term (current) drug therapy | CPT/HCPCS: 51798; 81003; 87086; 99212 ==

== ENCOUNTER 2025-06-03 11:33 | Outpatient (AMB) | payer MEDICARE, OTHER, SELFPAY ==
--- NOTE | 2025-06-03 11:54 | AM.OFFVISNUR ---
Intake Visit Reasons: B-12 shot Allergies No Known Allergies Allergy (Verified 06/02/25 13:29) Nursing Note Pt came into the office for Vitamin B12 injection to left deltoid. Pt tolerated well. Pt stated that she was encouraged by the provider to have Vitamin B12 injection to gluteus due to decrease muscle mass to bilateral deltoid. Office Meds cyanocobalamin (vitamin B-12) 1,000 mcg/mL injection solution Performing Provider: Magy Romero MD Performing Location: [facility] Administered by: Alva Wang on 06/03/25 11:56 Dose Route Admin Location Dispensed Lot Number Expiration Date [facility] Qa Manager 1,000 mcg IM 1 mL [id number] 04/14/26 47057-692-52 [employer] Total Dispensed Waste 1 mL 0 % Assessment & Plan Assessment & Plan Orders: Orders AMB Vitamin B12 Injection Patient Supplied Today E53.8 - Deficiency of other specified B group vitamins Coding
== END 2025-06-03 11:49 | disposition home or self-care (01) ==
LOC: HO.HMCC 11:33
PROVIDERS: PCP Internal Medicine; Visit Provider Internal Medicine
DX: E53.8 Deficiency of other specified B group vitamins (principal)

== ENCOUNTER → 2025-06-03 11:33 | Outpatient (BNVA) | payer MEDICARE, OTHER, SELFPAY | PROVIDERS: PCP Internal Medicine; Visit Provider Internal Medicine | DX: E53.8 Deficiency of other specified B group vitamins (principal) | CPT/HCPCS: 96372; J3420 ==

== ENCOUNTER 2025-07-01 13:21 | Outpatient (AMB) | payer MEDICARE, OTHER, SELFPAY ==
--- OUTSIDE RECORDS SUMMARY | 2024-07-31 08:45 | XMS_ITS ---
Author Organization [facility] Address [address] [place] [address] Care Team Providers Care Collating Machine Operator Name Role Phone Heather CONNORS, Magy Todd Primary Care Provider Un available Bruce Dorsey Unavailable [phone] Encounters Encounter Location Date Provider Diagnosis [address] [address] 07/31/2024 Bruce Dorsey Plan Of Treatment No Information Progress Notes * JACOBS, Jocelyn MDOB: [birth year] (89 yo F)Acc No.[id number]:07/31/2024 Progress Note Patient: Jocelyn HYDE Provider: Abdiaziz Dorsey DPM :1935 A ge:88 Y S ex:Female Date:07/31/2024 Address:[address] [place] [address] [address], [place] [id number] Pcp:Louie Anderson Subjective: * Chief Complaints: * [...] Date: 10/01/2023 Generated for Printi ng/Faxing/eTransmitting on: 08/31/2024 04:15 PM EST
--- OUTSIDE RECORDS SUMMARY | 2024-08-11 04:15 | XMS_ITS ---
Author Organization [facility] Address [address] [place] [address] Care Team Providers Care Head Athletic Trainer Name Role Phone Heather CONNORS, Magy Todd Primary Care Provider Un available Bruce Dorsey Unavailable [phone] Encounters Encounter Location Date Provider Diagnosis [address] [address] 08/11/2024 Bruce Dorsey Plan Of Treatment No Information Progress Notes * JACOBS, Jocelyn MDOB: [birth year] (89 yo F)Acc No.[id number]:08/11/2024 Progress Note Patient: Jocelyn HYDE Provider: Abdiaziz Dorsey DPM :1935 A ge:88 Y S ex:Female Date:08/11/2024 Address:[address] [place] [address] [address], [place] Pcp:Louie [place] Subjective: * Chief Complaints: * * Medical History: Objective: * Vitals: Assessment: Plan: * Treatment: * Images: * The named appointment provid er may or may not be the originator of this progress note, and it is not deemed complete until electronically signed by the appointment provider. Sign off status: Pending * Provider: Abdiaziz Dorsey DPM Date: 10/12/2023 Generated for Printi ng/Faxing/eTransmitting on: 08/31/2024 04:16 PM EST
[2025-07-01 13:24] VITALS: BP 110/74; PULSE 69; BMI 21.6
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
--- OUTSIDE RECORDS SUMMARY | 2025-07-01 16:14 | XMS_ITS | Clinical Summary ---
Author Organization [facility] Address [address] [address] Phone Care Team Providers Care Catalyst Unit Operator Name Role Phone Magy Romero MD [...] VACCINE (#1) 2025 COVID-19 VACCINE ( - 2024-2 6 season) 2025 CREATININE LEVEL 10/08/2025 10/08/2024 POTASSIUM [...] Date/Time Associated Diagnosis Comments COMPREHENSIVE METABOLIC PANEL (CMP) Routine 10/08/2024 8:01 AM EST Constipation, unspecified constipation type from Last 3 Months or Most Recently Relevant to Health Maintenance Results * (ABNORMAL) Comprehensive metabolic panel (10/08/2024 8:01 AM EST) SODIUM 137 133 - 146 mmol/L [facility] POTASSIUM 4.3 3.3 - 5.1 mmol/L [facility] CHLORIDE 100 96 - 108 mmol/L [facility] CO2 26 21 - 35 mmol/L [facility] BUN 22(H) 6 - 19 mg/dL [facility] CREATININE 0.90 0.5 - 1.5 mg/dL [facility] GLUCOSE 107(H) 70 - 99 mg/dL [facility] ALBUMIN 2.9(L) 3.9 - 4.8 g/dL [facility] TOTAL PROTEIN 5.0(L) 6.5 - 8.0 g/dL [facility] CALCIUM 7.8(L) 8.4 - 10.3 mg/dL [facility] ALKALINE PHOSPHATASE 59 39 - 117 U/L [facility] TOTAL BILIRUBIN <0.2 0.0 - 1.2 mg/dL [facility] AST 29 0 - 37 U/L [facility] ALT 13 0 - 40 U/L [facility] GLOBULIN 2.1 1 - 4.8 g/dL [facility] EGFR 62 >59 mL/min/1.7 3m2 [facility] Comment:Estimated glomerular filtration rate calculated using the CKD-EPI refit equation. ANION GAP 15 10 - 20 mmol/L [facility] Blood 10/08/2024 8:01 AM EST 10/08/2024 10:51 AM EST us Ravi Rivera MD LAB BLOOD BKR ORDERABLES Final Result [facility] [address] [place] [address] from Last 3 Months or Most Recently Relevant to Health Maintenance Insurance MEDICARE PART A & B [place] [place] Address: [address] [address] [facility] [id number] MEDICARE PART A & B [employer] [facility] [place] [facility] Address: [address] [address] [facility] B [facility]IC[facility] Address: [address] [address] [facility] B [facility]IC[facility] Address[facility] [address] [address] [facility] MEDICARE PART A & B [facility] [facility] Address: [address] [address] [facility] [id number] MEDICARE PART A & B [employer] MEDICARE SUPPLEMENT [facility] Care Teams Catalyst Unit Operator Relationship Specialty Start Date End Date Magy Romero MD [facility] [place] [address] PCP - General Internal Medicine 02/07/23 Additional Source Comments The information contained in this document represents components of the legal health record. It is not the complete legal health record.[facility]
--- OUTSIDE RECORDS SUMMARY | 2025-07-01 16:16 | XMS_ITS | Patient Health Record ---
Author Organization [facility] Address [address] [place] [address] Care Team Providers Care Junior Loan Processor Name Role Phone Heather CONNORS, Magy Primary Care Provider Brian Tam Unavailable [phone] SALOMÓN CHAMPION Unavailable Unavailable Allergies Allergen (clinical [...] LQ AND TK 10 ML PO BID Oral; Duration: 30 Not-Takin g Vitamin B12 1000 MCG 1 tablet Orally Onc e a day Active Vitamin D3 1000 UNIT 1 capsule Orally On ce a day Active Primidone 50 MG Orally Acti ve Rosuvastatin Calcium 10 MG 1 tablet Orally Once a day; Duration: 30 day(s) Active Calcium 600 MG 1 tablet with meals Orally Once a day Active Prolia 60 MG/ML injection Subcutaneo us once a month Active Immunizations Vaccine Route Administration Date Status Comme nts Influenza Unknown 04/26/2016 Administered Influenza Unknown 04/26/2019 Administered Influenza Unknown 04/26/2020 Administered Problems Problem Type SNOMED Code ICD Code Onset Dates Problem Status W/U Status Risk Notes Problem Cough (90874235) Cough (R05) Active confirmed Problem Gastroesophageal reflux disease with esophagitis (831134331) Gastroesophageal reflux disease with esophagitis (K21.0) Active confirmed Problem Erosive esophagitis (47720345) Erosive esophagitis (K22.10) Active confirmed Problem Constipation (58507566) Constipation, unspecified constipation type (K59.00) Active confirmed Problem Esophagitis (15504926) Esophagitis (K20.9) Active confirmed Problem Lower abdominal pain (61076527) Lower abdominal pain (R10.30) Active confirmed Plan Of Treatment Pending Test Test Name Order Date XR CHEST 2 VIEW PA & LAT 04/25/2021 Future Test Test Name Order Date UPPER GI ENDOSCOPY 11/13/2016 Insurance Providers Payer Name Payer Address Payer Phone Subscriber Number Group Number Insured Name Patient Relationship to Insured Coverage Start Date Coverage End Date MEDICARE OF [place] [address] [place] [address] [phone] [id number] HITESH JACOBS Self - patient is the insured [employer] [address] [place] [address] [phone] [id number] JACOBS HITESH Self - patient is the insured Medical [...]
--- OUTSIDE RECORDS SUMMARY | 2025-07-01 16:16 | XMS_ITS | Patient Health Record ---
Author Organization [facility] Address [address] [place] [address] Care Team Providers Care Water Maintenance Supervisor Name Role Phone Heather CONNORS, Magy Todd Primary Care Provider Un available Bruce Dorsey Unavailable [phone] Allergies Allergen (clinical drug ingredient) Drug/Non Drug [...] W/U Status Risk Notes Problem Age-related osteoporosis (460707635) Age-related osteoporosis without current pathological fracture (M81.0) Active confirmed Problem Bilateral atherosclerosis of arteries of lower limbs (disorder) (56264972280452881 ) Atherosclerosis of [place] artery of both lower extremities, with unspecified presence of clinical manifestation (I70.203) Active confirmed Encounters Encounter Location Date Provider Diagnosis [facility] [address] [address] 07/29/2024 Bruce Dorsey [facility] [address] [address] 08/11/2024 Bruce Dorsey Plan Of Treatment Pending Test Test Name Order Date X ray : Foot, right 3V 12/28/2022 43656-[id number] NAIL, 6 OR MORE 02/05/2023 25293-QOHEBYG NAIL, 6 OR MORE 11/13/2022 59155-CWIVMBE NAIL, 6 OR MORE 04/16/2023 64005-KTGDHFX NAIL, 6 OR MORE 07/02/2023 40680-QHAOPFI NAIL, 6 OR MORE 09/20/2023 43467-DDQPFYM NAIL, 6 OR MORE 12/03/2023 60392-FQVNVZZ NAIL, 6 OR MORE 02/25/2024 10639-JSXWBIZ NAIL, 6 OR MORE 05/05/2024 26803-VEOFQNK NAIL, 6 OR MORE 10/16/2011 41538-IKEEIKJ NAIL, 6 OR MORE 01/15/2012 01824-CNDWCSI NAIL, 6 OR MORE 04/22/2012 15502-GDWMMMV NAIL, 6 OR MORE 07/22/2012 59736-THGWIJO NAIL, 6 OR MORE 10/07/2012 93324-MAAGXOF NAIL, 6 OR MORE 12/30/2012 76170-QAWCTDJ NAIL, 6 OR MORE 03/31/2013 22414-NXCKYED NAIL, 6 OR MORE 06/30/2013 32312-PFJTGYU NAIL, 6 OR MORE 10/06/2013 70569-VKJBUBL NAIL, 6 OR MORE 01/05/2014 40466-DIFQZAS NAIL, 6 OR MORE 07/06/2014 18390-JYMKVLX NAIL, 6 OR MORE 10/26/2014 93579-GRSCZLB NAIL, 6 OR MORE 01/04/2015 12578-XLBDGJE NAIL, 6 OR MORE 04/05/2015 99872-LHZIKIT NAIL, 6 OR MORE 06/14/2015 84803-EYXGERL NAIL, 6 OR MORE 04/02/2014 18076-GRUAQEC NAIL, 6 OR MORE 09/06/2015 56150-QDUVBHQ NAIL, 6 OR MORE 12/02/2015 91694-NKGQFZE NAIL, 6 OR MORE 02/10/2016 02413-AOAWZDZ NAIL, 6 OR MORE 04/13/2016 08144-KUXDIZE NAIL, 6 OR MORE 06/22/2016 24167-SPWDJIV NAIL, 6 OR MORE 09/04/2016 91958-MUBWWWA NAIL, 6 OR MORE 11/16/2016 56939-IXXQNQZ NAIL, 6 OR MORE 01/29/2017 09245-YJWOYEG NAIL, 6 OR MORE 04/12/2017 71226-GMMYJRQ NAIL, 6 OR MORE 06/25/2017 74865-NOCLWNT NAIL, 6 OR MORE 09/03/2017 04332-KPLJOHS NAIL, 6 OR MORE 11/08/2017 16940-FCPOZZI NAIL, 6 OR MORE 01/10/2018 71638-XXLTWZW NAIL, 6 OR MORE 03/25/2018 16985-LNKGOYC NAIL, 6 OR MORE 05/27/2018 48012-BZDRCGV NAIL, 6 OR MORE 09/09/2018 50937-PUCWKSX NAIL, 6 OR MORE 12/05/2018 25492-WOKAFBH NAIL, 6 OR MORE 02/24/2019 26461-HTCKWVF NAIL, 6 OR MORE 05/29/2019 14980-RKJRXZS NAIL, 6 OR MORE 08/04/2019 04045-OHKYAUK NAIL, 6 OR MORE 11/10/2019 03555-UDBFXYW NAIL, 6 OR MORE 02/02/2020 32569-FDCLPYV NAIL, 6 OR MORE 04/12/2020 93174-EUFEVXO NAIL, 6 OR MORE 06/24/2020 45872-CXEIFIR NAIL, 6 OR MORE 09/13/2020 67996-NKOFKVG NAIL, 6 OR MORE 12/20/2020 47895-PWBZMEJ NAIL, 6 OR MORE 02/28/2021 55757-INEXPWU NAIL, 6 OR MORE 05/16/2021 95598-CXGIXEP NAIL, 6 OR MORE 09/15/2021 00787-KAMHGYV NAIL, 6 OR MORE 11/17/2021 98734-WEGRSGN NAIL, 6 OR MORE 02/02/2022 43171-JCWYUYV NAIL, 6 OR MORE 04/24/2022 18956-KSUXZCD NAIL, 6 OR MORE 07/06/2022 54173-NYZQPKI NAIL, 6 OR MORE 09/11/2022 87215-Vutsxwrw Plate 06/01/2022 42787-Ywszwasa Plate 09/11/2022 49585-Adlexwtk Plate 04/24/2022 87590-Moowfakq Plate 02/02/2022 00300-Yyrrkgmf Plate 11/17/2021 73691-Zmvmnyug Plate 09/15/2021 66496-Yxmirbqw Plate 05/16/2021 53826-Bmjzqhey Plate 02/28/2021 78215-Qterfjko Plate 12/20/2020 23580-Qbjzxgry Plate 09/13/2020 15667-Wpclmsoi Plate 06/24/2020 81743-Kfvsixau Plate 10/07/2012 96786-Fkxnlzfj Plate 04/12/2020 83222-Saqyfxrm Plate 02/02/2020 77178-Ajfksgqy Plate 11/10/2019 57672-Pdrtqjgy Plate 12/05/2018 92896-Owdbfqsg Plate 09/09/2018 26828-Ptlkjcky Plate 05/27/2018 16848-Yqqhqxtg Plate 01/10/2018 66360-Hmprtjva Plate 04/12/2017 90372-Jpudgadh Plate 09/04/2016 71596-Emlkstyz Plate 09/06/2015 31222-Kmlawyhr Plate 04/02/2014 43705-Czpqesux Plate 06/14/2015 98097-Yvxkhalr Plate 04/05/2015 08367-Haybrgjm Plate 01/04/2015 07372-Ocqdxuil Plate 10/26/2014 23615-Eufyqbhc Plate 07/06/2014 86176-Utsbycth Plate 06/30/2013 58682-Vvetefsi Plate 01/15/2012 05276-Izjztzfm Plate 02/25/2024 01021-Mqdmdgja Plate 12/03/2023 05622-Lfjmubed Plate 07/02/2023 93494-Jbcsrwjk Plate 04/16/2023 74301-Dxojglsf Plate 11/13/2022 64032-Habxadwq Plate 02/05/2023 05175-Cqtgfvxk Plate Each Additional 10/2014 01963-Ukqohneu Plate Each Additional 07/2015 22290-Hcphlenl Plate Each Additional 06/2015 23767-Jovxwrpa Plate Each Additional 48183-Vuxyeisj Plate Each Additional 07/2019 33295-Zlnizahu Plate Each Additional 99688-Ajwvwhvk Plate Each Additional 94640-Rmvebpci Plate Each Additional 09278-Rkzthvdg Plate Each Additional 01/2021 57119-Amjtgjht Plate Each Additional 38100-Cxawolkg Plate Each Additional 70175-Nntmlkva Plate Each Additional 05951-Zmnxvqxt Plate Each Additional 05/2022 62419 I&D ABSCESS- SIMPLE,SINGLE 014 80947 I&D ABSCESS- SIMPLE,SINGLE 012 99070 I&D ABSCESS- SIMPLE,SINGLE 023 37367-NVHV SKIN LESIONS, OVER 4 05/05/20 24 87344-BACQ SKIN LESIONS, OVER 4 02/06/20 23 56428-VRGQ SKIN LESIONS, OVER 4 11/14/19 23 21106-RPKF SKIN LESIONS, OVER 4 04/16/20 23 05581-SMCF SKIN LESIONS, OVER 4 07/02/20 23 56503-ZOKG SKIN LESIONS, OVER 4 09/20/19 24 79523-ZHOP SKIN LESIONS, OVER 4 12/03/19 24 53664-UALY SKIN LESIONS, OVER 4 02/25/20 24 67741-KVSX SKIN LESIONS, OVER 4 09/04/19 17 82438-UQYX SKIN LESIONS, OVER 4 11/17/19 17 37451-ICVD SKIN LESIONS, OVER 4 01/30/20 17 45596-XYVH SKIN LESIONS, OVER 4 06/22/20 16 43711-GSQM SKIN LESIONS, OVER 4 04/13/20 16 22633-DXTQ SKIN LESIONS, OVER 4 04/12/20 17 24958-LGVH SKIN LESIONS, OVER 4 06/25/20 17 27690-MBZI SKIN LESIONS, OVER 4 11/09/19 18 16202-PHCB SKIN LESIONS, OVER 4 09/03/19 18 53750-OZSZ SKIN LESIONS, OVER 4 02/03/20 05554-UQRP SKIN LESIONS, OVER 4 11/18/19 31482-HWWQ SKIN LESIONS, OVER 4 04/24/20 96474-JZAU SKIN LESIONS, OVER 4 07/06/20 18514-CVNT SKIN LESIONS, OVER 4 09/11/19 23 83369-ORKI SKIN LESIONS, OVER 4 09/15/19 70683-DRCM SKIN LESIONS, OVER 4 05/16/20 21 98866-JUTC SKIN LESIONS, OVER 4 02/29/20 69516-KQES SKIN LESIONS, OVER 4 12/21/19 21 08689-ECWS SKIN LESIONS, OVER 4 09/13/19 42958-QBYC SKIN LESIONS, OVER 4 06/24/20 20 81660-RGMY SKIN LESIONS, OVER 4 11/10/19 23621-KEHY SKIN LESIONS, OVER 4 08/04/20 19 58973-WFYE SKIN LESIONS, OVER 4 02/02/20 20 91005-LWPJ SKIN LESIONS, OVER 4 04/12/20 64719-TSUQ SKIN LESIONS, OVER 4 12/06/19 19 11832-KBWW SKIN LESIONS, OVER 4 05/29/20 68812-KEVS SKIN LESIONS, OVER 4 02/25/20 19 53925-RAMO SKIN LESIONS, OVER 4 01/11/20 18 64938-JLAY SKIN LESIONS, OVER 4 03/25/20 18 26700-NJLE SKIN LESIONS, OVER 4 05/27/20 18 94304-NDAG SKIN LESIONS, OVER 4 09/09/19 19 18184-DQOK SKIN LESIONS, 2 TO 4 06/14/20 15 13103-KMBA SKIN LESIONS, 2 TO 4 04/05/20 15 70451-FGQB SKIN LESIONS, 2 TO 4 04/02/20 14 39817-BYJQ SKIN LESIONS, 2 TO 4 09/06/19 16 41659-SNUV SKIN LESIONS, 2 TO 4 02/10/20 16 32494-UUUQ SKIN LESIONS, 2 TO 4 12/02/19 16 58650-XRZK SKIN LESIONS, 2 TO 4 01/15/20 12 57945-ROIU SKIN LESIONS, 2 TO 4 07/22/20 12 11756-QFQV SKIN LESIONS, 2 TO 4 04/22/20 12 53431-DQSC SKIN LESIONS, 2 TO 4 06/30/20 13 91586-GBSB SKIN LESIONS, 2 TO 4 03/31/20 13 06721-EDLN SKIN LESIONS, 2 TO 4 12/31/19 13 15944-SOXV SKIN LESIONS, 2 TO 4 10/07/19 13 50132-XBUY SKIN LESIONS, 2 TO 4 07/06/20 14 32386-NKLA SKIN LESIONS, 2 TO 4 01/06/20 14 23973-XAJJ SKIN LESIONS, 2 TO 4 10/06/19 14 13225-HPXJ SKIN LESIONS, 2 TO 4 01/05/20 15 54039-BOLU SKIN LESIONS, 2 TO 4 10/27/19 15 Insurance Providers Payer Name Payer Address Payer Phone Subscriber Number Group Number Insured Name Patient Relationship to Insured Coverage Start Date Coverage End Date Medicare [employer] [address] [place] [address] [id number] Jocelyn Mejia Self - patient is the insured [employer] [address] [place] [address] [id number] Brandon Mejia Spouse - patient is the spouse of the insured Medical (General) History Medical History History ICD Code Arthritis back pain Cholesterol Hiatal hernia osteoporosis reflux hypertension ASO/PVD Arthritis - Degenerative Surgical History Surgery Date(Month/Year) Hospitalization History Reason Date(Month/Year) [facility] Acid reflux 09/08-09/12 [facility]- Flu 10/15
== END 2025-07-01 14:07 | disposition home or self-care (01) ==
LOC: HO.HCS 13:22
PROVIDERS: PCP Internal Medicine; Visit Provider Internal Medicine Cardiovascular Disease
DX: I42.9 Cardiomyopathy, unspecified (principal)
CPT/HCPCS: 93010; 99214; G2211

== ENCOUNTER 2025-07-01 13:48 | Emergency (ER) | payer OTHER, SELFPAY ==
--- NOTE | ~2025-07-01 | XR_ITS ---
EXAMINATION: XR SHOULDER, RIGHT CLINICAL INFORMATION: pain, injury COMPARISON: None available. TECHNIQUE: AP external rotation, Grashey, scapular Y, and axillary views of the right shoulder. FINDINGS: AC joint is mildly degenerated. There are marginal osteophytes. There is no AC joint separation. There is probably a subacromial spur. There is mild degenerative change involving glenoid and humerus with small marginal osteophytes. There is no dislocation. XR/XR shoulder RT min 2V IMPRESSION: Mild degenerative changes are present in the a.c. and glenohumeral joints. There is probably a subacromial spur. Electronically signed by: Ken He MD 07/01/2025 02:33 PM EST
[2025-07-01 14:02] VITALS: BP 150/56; PULSE 73; RESP 18; TEMP 36.1; O2SAT 100; BMI 21.1
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
[2025-07-01 15:23] VITALS: BP 150/56; PULSE 73; RESP 18; TEMP 36.1; O2SAT 100
== END 2025-07-01 15:25 | disposition home or self-care (01) ==
PROVIDERS: Emergency Provider Emergency Medicine; PCP Internal Medicine
DX: S49.91XA Unspecified injury of right shoulder and upper arm, initial encounter (principal); V43.52XA Car driver injured in collision with other type car in traffic accident, initial encounter; Y93.9 Activity, unspecified; Y92.9 Unspecified place or not applicable; Y99.9 Unspecified external cause status; M25.511 Pain in right shoulder; I10 Essential (primary) hypertension; K21.9 Gastro-esophageal reflux disease without esophagitis; D64.9 Anemia, unspecified
CPT/HCPCS: 73030; 93005; 99212; 99282; 99283

== ENCOUNTER → 2025-07-01 14:03 | Outpatient (BNV) | payer MEDICARE, OTHER, SELFPAY | PROVIDERS: PCP Internal Medicine; Visit Provider Radiology Diagnostic Radiology | DX: S49.91XA Unspecified injury of right shoulder and upper arm, initial encounter (principal); M19.011 Primary osteoarthritis, right shoulder | CPT/HCPCS: 73030 ==

== ENCOUNTER 2025-07-02 10:46 | Outpatient (AMB) | payer MEDICARE, OTHER, SELFPAY ==
--- OUTSIDE RECORDS SUMMARY | 2024-07-31 08:45 | XMS_ITS ---
Author Organization [facility] Address [address] [place] [address] Care Team Providers Care Lead Burner Apprentice Name Role Phone Heather CONNORS, Magy Todd Primary Care Provider Un available Bruce Dorsey Unavailable [phone] Encounters Encounter Location Date Provider Diagnosis [address] [address] 07/31/2024 Bruce Dorsey Plan Of Treatment No Information Progress Notes * JACOBS, Jocelyn MDOB: [birth year] (89 yo F)Acc No.[id number]:07/31/2024 Progress Note Patient: Jocelyn HYDE Provider: Abdiaziz Dorsey DPM :1935 A ge:88 Y S ex:Female Date:07/31/2024 Address:[address] [place] [address] [address], [id number] Pcp:Louie Anderson Subjective: * Chief Complaints: * * Medical History: Objective: * Vitals: Assessment: Plan: * Treatment: * Images: * The named appointment provid er may or may not be the originator of this progress note, and it is not deemed complete until electronically signed by the appointment provider. Sign off status: Pending * Provider: Abdiaziz Dorsey DPM Date: 10/01/2023 Generated for Printi ng/Faxing/eTransmitting on: 09/01/2024 12:45 PM EST
--- OUTSIDE RECORDS SUMMARY | 2024-08-11 04:15 | XMS_ITS ---
Author Organization [facility] Address [address] [place] [address] Care Team Providers Care Transport Specialist Name Role Phone Heather CONNORS, Magy Todd Primary Care Provider Un available Bruce Dorsey Unavailable [phone] Encounters Encounter Location Date Provider Diagnosis [address] [address] 08/11/2024 Bruce Dorsey Plan Of Treatment No Information Progress Notes * JACOBS, Jocelyn MDOB: [birth year] (89 yo F)Acc No.[id number]:08/11/2024 Progress Note Patient: Jocelyn HYDE Provider: Abdiaziz Dorsey DPM :1935 A ge:88 Y S ex:Female Date:08/11/2024 Address:[address] [place] [address] [address], [id number] Pcp:Louie [place] Subjective: * Chief Complaints: * [...] Date: 10/12/2023 Generated for Printi ng/Faxing/eTransmitting on: 09/01/2024 12:45 PM EST
--- NOTE | 2025-07-02 11:10 | AM.OFFVISNUR ---
Intake Visit Reasons: B12 Shot Allergies No Known Allergies Allergy (Verified 07/01/25 14:03) Nursing Note Pt came in. Vitamin B12 injection to left deltoid. Pt tolerated well. Office Meds cyanocobalamin (vitamin B-12) 1,000 mcg/mL injection solution Performing Provider: Magy Romero MD Performing Location: [facility] Administered by: Alva Wang on 07/02/25 11:23 Dose Route Admin Location Dispensed Lot Number Expiration Date [facility] Apprentice Architect 1,000 mcg IM 1 mL [id number] 04/14/26 41301-845-99 [employer] Total Dispensed Waste 1 mL 0 % Assessment & Plan Assessment & Plan Orders: Orders AMB Vitamin B12 Injection Patient Supplied Today E53.8 - Deficiency of other specified B group vitamins Coding
--- OUTSIDE RECORDS SUMMARY | 2025-07-02 12:45 | XMS_ITS | Clinical Summary ---
Author Organization [facility] Address [address] [address] Phone Care Team Providers Care Cotton Cleaner Name Role Phone Magy Romero MD Primary [...] EST) SODIUM 137 133 - 146 mmol/L [facility] POTASSIUM 4.3 3.3 - 5.1 mmol/L [facility] CHLORIDE 100 96 - 108 mmol/L [facility] CO2 26 21 - 35 mmol/L [facility] BUN 22(H) 6 - 19 mg/dL [facility] CREATININE 0.90 0.5 - 1.5 mg/dL [facility] GLUCOSE 107(H) 70 - 99 mg/dL [facility] ALBUMIN 2.9(L) 3.9 - 4.8 g/dL [facility] TOTAL PROTEIN 5.0(L) 6.5 - 8.0 g/dL [facility] CALCIUM 7.8(L) 8.4 - 10.3 mg/dL [facility] ALKALINE PHOSPHATASE 59 39 - 117 U/L [facility] TOTAL BILIRUBIN <0.2 0.0 - 1.2 mg/dL [facility] AST 29 0 - 37 U/L [facility] ALT 13 0 - 40 U/L [facility] GLOBULIN 2.1 1 - 4.8 g/dL [facility] EGFR 62 >59 mL/min/1.7 3m2 [facility] Comment:Estimated glomerular filtration rate calculated using the CKD-EPI refit equation. ANION GAP 15 10 - 20 mmol/L [facility] Blood 10/08/2024 8:01 AM EST 10/08/2024 10:51 AM EST us Ravi Rivera MD LAB BLOOD BKR ORDERABLES Final Result [facility] [address] [place] [address] from Last 3 Months or Most Recently Relevant to Health Maintenance Insurance MEDICARE PART A & B [employer] MEDICARE SUPPLEMENT [facility] [place] [place] Address: [address] [address] [place] [address] MEDICARE PART A & B FOR LIFE MEDICARE SUPPLEMENT [facility] [place] [place] Address: [address] [address] [facility] MEDICARE PART A & B [facility] FOR LIFE MEDICARE SUPPLEMENT [facility] [place] [place] Address: [address] [address] [facility] MEDICARE PART A & B [facility] MEDICARE SUPPLEMENT [facility] [place] [place] Address: [address] [address] [facility] MEDICARE PART A & B [employer] MEDICARE SUPPLEMENT [facility] [place] [place] Address: [address] [address] [place] [address] MEDICARE PART A & B FOR LIFE MEDICARE SUPPLEMENT [facility] Care Teams Cotton Cleaner Relationship Specialty Start Date End Date Magy Romero MD [facility] [place] [address] PCP - General Internal Medicine 02/07/23 Additional Source Comments The information contained in this document represents components of the legal health record. It is not the complete legal health record.[facility]
--- OUTSIDE RECORDS SUMMARY | 2025-07-02 12:46 | XMS_ITS | Patient Health Record ---
Author Organization [facility] Address [address] [place] [address] Care Team Providers Care Accounting Support Specialist Name Role Phone Heather CONNORS, Magy Primary Care Provider Brian Tam Unavailable [phone] SALOMÓN CHAMPION Unavailable Unavailable Allergies Allergen (clinical [...] Status W/U Status Risk Notes Problem Cough (98536765) Cough (R05) Active confirmed Problem Gastroesophageal reflux disease with esophagitis (103605226) Gastroesophageal reflux disease with esophagitis (K21.0) Active confirmed Problem Erosive esophagitis (57648324) Erosive esophagitis (K22.10) Active confirmed Problem Constipation (04484343) Constipation, unspecified constipation type (K59.00) Active confirmed Problem Esophagitis (42488800) Esophagitis (K20.9) Active confirmed Problem Lower abdominal pain (73586528) Lower abdominal pain (R10.30) Active confirmed Plan Of Treatment Pending Test Test Name Order Date XR CHEST 2 VIEW PA & LAT 04/25/2021 Future Test Test Name Order Date UPPER GI ENDOSCOPY 11/13/2016 Insurance Providers Payer Name Payer Address Payer Phone Subscriber Number Group Number Insured Name Patient Relationship to Insured Coverage Start Date Coverage End Date MEDICARE OF [place] [address] [place] [address] [id number] HITESH JACOBS Self - patient is the insured [employer] [address] [place] [address] [id number] JACOBS HITESH Self - patient is the [...]
--- OUTSIDE RECORDS SUMMARY | 2025-07-02 12:46 | XMS_ITS | Patient Health Record ---
Author Organization [facility] Address [address] [place] [address] Care Team Providers Care Manager Transport Name Role Phone Heather CONNORS, Magy Todd Primary Care Provider Un available Bruce Dorsey Unavailable [phone] Allergies Allergen (clinical drug ingredient) Drug/Non Drug [...] W/U Status Risk Notes Problem Age-related osteoporosis (681200244) Age-related osteoporosis without current pathological fracture (M81.0) Active confirmed Problem Bilateral atherosclerosis of arteries of lower limbs (disorder) (58571671420935495 ) Atherosclerosis of [place] artery of both lower extremities, with unspecified presence of clinical manifestation (I70.203) Active confirmed Encounters Encounter Location Date Provider Diagnosis [facility] [address] [address] 07/29/2024 Bruce Dorsey [facility] [address] [address] 08/11/2024 Bruce Dorsey Plan Of Treatment Pending Test Test Name Order Date X ray : Foot, right 3V 12/28/2022 07031-XEYMNGV NAIL, 6 OR MORE 02/05/2023 14625-BQPCRRR NAIL, 6 OR MORE 11/13/2022 97984-LNJLOHB NAIL, 6 OR MORE 04/16/2023 20215-VUYEBRP NAIL, 6 OR MORE 07/02/2023 52775-LMITNYG NAIL, 6 OR MORE 09/20/2023 43559-AVFHBDD NAIL, 6 OR MORE 12/03/2023 24471-HWOHRWT NAIL, 6 OR MORE 02/25/2024 21163-PEPGPLM NAIL, 6 OR MORE 05/05/2024 92495-BWUIREQ NAIL, 6 OR MORE 10/16/2011 74681-VBJXDNB NAIL, 6 OR MORE 01/15/2012 51958-QOIBIST NAIL, 6 OR MORE 04/22/2012 16192-XOHVPCS NAIL, 6 OR MORE 07/22/2012 77510-VODTUCH NAIL, 6 OR MORE 10/07/2012 28736-OHCIOXQ NAIL, 6 OR MORE 12/30/2012 36784-FNHTSUY NAIL, 6 OR MORE 03/31/2013 51350-SYRXNWJ NAIL, 6 OR MORE 06/30/2013 31712-SGAWTDD NAIL, 6 OR MORE 10/06/2013 59938-OXNUYXQ NAIL, 6 OR MORE 01/05/2014 23023-HAVSXWF NAIL, 6 OR MORE 07/06/2014 80761-JPTPLMG NAIL, 6 OR MORE 10/26/2014 55612-FUASVYP NAIL, 6 OR MORE 01/04/2015 27817-RGAUWQF NAIL, 6 OR MORE 04/05/2015 77736-JSLXQNV NAIL, 6 OR MORE 06/14/2015 89153-BHDWWLJ NAIL, 6 OR MORE 04/02/2014 56545-YWZXXJV NAIL, 6 OR MORE 09/06/2015 20395-EWBQWQE NAIL, 6 OR MORE 12/02/2015 79066-KMPJDTI NAIL, 6 OR MORE 02/10/2016 81621-IEHTXVE NAIL, 6 OR MORE 04/13/2016 98031-GNZSCQD NAIL, 6 OR MORE 06/22/2016 80963-DKVHRYU NAIL, 6 OR MORE 09/04/2016 26224-LEFGDZH NAIL, 6 OR MORE 11/16/2016 60759-IOYBJBF NAIL, 6 OR MORE 01/29/2017 35204-QZAZVXT NAIL, 6 OR MORE 04/12/2017 67448-PXHHNJL NAIL, 6 OR MORE 06/25/2017 67455-KNAFIBO NAIL, 6 OR MORE 09/03/2017 15812-RQKGWPI NAIL, 6 OR MORE 11/08/2017 26334-BIZCTVA NAIL, 6 OR MORE 01/10/2018 95096-VZIFTCM NAIL, 6 OR MORE 03/25/2018 18975-SHSOMXB NAIL, 6 OR MORE 05/27/2018 34174-NYNHHSC NAIL, 6 OR MORE 09/09/2018 94622-YCTMEEN NAIL, 6 OR MORE 12/05/2018 12936-OYETSIL NAIL, 6 OR MORE 02/24/2019 97063-BQHJDWS NAIL, 6 OR MORE 05/29/2019 44711-POVOTYE NAIL, 6 OR MORE 08/04/2019 31597-FSQWVAI NAIL, 6 OR MORE 11/10/2019 29934-DZOLFPJ NAIL, 6 OR MORE 02/02/2020 36645-KFSMCXO NAIL, 6 OR MORE 04/12/2020 95261-RURFUWU NAIL, 6 OR MORE 06/24/2020 77305-YRBWCJS NAIL, 6 OR MORE 09/13/2020 58275-ERRHPUP NAIL, 6 OR MORE 12/20/2020 55395-YYGDXEY NAIL, 6 OR MORE 02/28/2021 74942-NHABFHS NAIL, 6 OR MORE 05/16/2021 34757-LJYSXDU NAIL, 6 OR MORE 09/15/2021 11464-AZTZSEW NAIL, 6 OR MORE 11/17/2021 62024-TDCQKTX NAIL, 6 OR MORE 02/02/2022 80405-ZAALTFV NAIL, 6 OR MORE 04/24/2022 16828-DLKKWXF NAIL, 6 OR MORE 07/06/2022 67154-WQMKRBY NAIL, 6 OR MORE 09/11/2022 76448-Tvfumymu Plate 06/01/2022 27543-Uofnyzml Plate 09/11/2022 18342-Avqusztl Plate 04/24/2022 93038-Sconeqdl Plate 02/02/2022 90733-Ojvfzjgx Plate 11/17/2021 63941-Simcxrgk Plate 09/15/2021 39453-Ozijwxjx Plate 05/16/2021 82300-Wswvfutv Plate 02/28/2021 03475-Nsgcvfrt Plate 12/20/2020 00472-Ylxvawol Plate 09/13/2020 24673-Xrkdpaji Plate 06/24/2020 95997-Kblrusks Plate 10/07/2012 74746-Umtqogyl Plate 04/12/2020 74526-Hctckfuw Plate 02/02/2020 24743-Lgonffzg Plate 11/10/2019 66764-Shnghyzf Plate 12/05/2018 27647-Vkyaujul Plate 09/09/2018 74781-Fudrlyid Plate 05/27/2018 65587-Vsyfaugy Plate 01/10/2018 00717-Qzdtssyg Plate 04/12/2017 07428-Fxjtleww Plate 09/04/2016 78124-Uharmkns Plate 09/06/2015 38942-Mjjqhnnh Plate 04/02/2014 48235-Pnaobogq Plate 06/14/2015 67560-Yycynnow Plate 04/05/2015 67157-Foanvyph Plate 01/04/2015 28485-Vjdxyhsx Plate 10/26/2014 67153-Yalykkhu Plate 07/06/2014 80270-Txnodtvv Plate 06/30/2013 23932-Ymjdneov Plate 01/15/2012 56337-Tpvxtnaf Plate 02/25/2024 61367-Btsdjzbg Plate 12/03/2023 81322-Anelmlwj Plate 07/02/2023 88699-Gbrstqya Plate 04/16/2023 80761-Glhueqyu Plate 11/13/2022 23060-Apnhsiry Plate 02/05/2023 58245-Jyafhbxn Plate Each Additional 10/2014 61371-Zyyckhht Plate Each Additional 07/2015 23769-Ribwizzc Plate Each Additional 06/2015 80148-Tgbmehmz Plate Each Additional 81884-Rdkwwgmk Plate Each Additional 07/2019 37162-Rbibknms Plate Each Additional 85990-Rmhrjgbl Plate Each Additional 38672-Jspjjwtc Plate Each Additional 67448-Shphhphp Plate Each Additional 01/2021 67485-Lnndaner Plate Each Additional 23441-Znjcdvdq Plate Each Additional 97117-Qwrkfqor Plate Each Additional 80631-Vucshbll Plate Each Additional 05/2022 72585 I&D ABSCESS- SIMPLE,SINGLE 014 54040 I&D ABSCESS- SIMPLE,SINGLE 012 42752 I&D ABSCESS- SIMPLE,SINGLE 023 68105-BDBA SKIN LESIONS, OVER 4 05/05/20 24 03342-UHUV SKIN LESIONS, OVER 4 02/06/20 23 48195-FCQT SKIN LESIONS, OVER 4 11/14/19 23 82544-ZRSA SKIN LESIONS, OVER 4 04/16/20 23 17564-DKDU SKIN LESIONS, OVER 4 07/02/20 23 60483-NHSK SKIN LESIONS, OVER 4 09/20/19 24 80166-RHEW SKIN LESIONS, OVER 4 12/03/19 24 09896-TODG SKIN LESIONS, OVER 4 02/25/20 24 39950-ZEVS SKIN LESIONS, OVER 4 09/04/19 17 46173-ZTVZ SKIN LESIONS, OVER 4 11/17/19 17 84954-OHBE SKIN LESIONS, OVER 4 01/30/20 17 22475-LYTY SKIN LESIONS, OVER 4 06/22/20 16 91946-SOUF SKIN LESIONS, OVER 4 04/13/20 16 42328-LNOF SKIN LESIONS, OVER 4 04/12/20 17 27555-BPBH SKIN LESIONS, OVER 4 06/25/20 17 32381-GCTS SKIN LESIONS, OVER 4 11/09/19 18 85549-BVCE SKIN LESIONS, OVER 4 09/03/19 18 61714-ZBLH SKIN LESIONS, OVER 4 02/03/20 91336-LMDU SKIN LESIONS, OVER 4 11/18/19 38245-YEKU SKIN LESIONS, OVER 4 04/24/20 12815-YDRS SKIN LESIONS, OVER 4 07/06/20 25855-MAVJ SKIN LESIONS, OVER 4 09/11/19 23 40941-NCJE SKIN LESIONS, OVER 4 09/15/19 73073-UINY SKIN LESIONS, OVER 4 05/16/20 21 47975-KYNW SKIN LESIONS, OVER 4 02/29/20 88718-BIDK SKIN LESIONS, OVER 4 12/21/19 21 40929-QDIY SKIN LESIONS, OVER 4 09/13/19 99384-VUES SKIN LESIONS, OVER 4 06/24/20 20 25853-SIXW SKIN LESIONS, OVER 4 11/10/19 24491-AYAA SKIN LESIONS, OVER 4 08/04/20 19 39453-BPLX SKIN LESIONS, OVER 4 02/02/20 20 16921-YOVP SKIN LESIONS, OVER 4 04/12/20 33812-WLND SKIN LESIONS, OVER 4 12/06/19 19 92333-CJUP SKIN LESIONS, OVER 4 05/29/20 26796-OXRU SKIN LESIONS, OVER 4 02/25/20 19 34545-GHJP SKIN LESIONS, OVER 4 01/11/20 18 65919-DIJK SKIN LESIONS, OVER 4 03/25/20 18 15288-XXAY SKIN LESIONS, OVER 4 05/27/20 18 76936-JZYJ SKIN LESIONS, OVER 4 09/09/19 19 45091-IWNA SKIN LESIONS, 2 TO 4 06/14/20 15 45518-GSUT SKIN LESIONS, 2 TO 4 04/05/20 15 50559-HWQI SKIN LESIONS, 2 TO 4 04/02/20 14 05543-PBAF SKIN LESIONS, 2 TO 4 09/06/19 16 03828-LXOL SKIN LESIONS, 2 TO 4 02/10/20 16 84654-SOMB SKIN LESIONS, 2 TO 4 12/02/19 16 04318-FTHL SKIN LESIONS, 2 TO 4 01/15/20 12 34733-VYXQ SKIN LESIONS, 2 TO 4 07/22/20 12 29550-JGXV SKIN LESIONS, 2 TO 4 04/22/20 12 63641-IGOR SKIN LESIONS, 2 TO 4 06/30/20 13 22121-YSQG SKIN LESIONS, 2 TO 4 03/31/20 13 36760-CANO SKIN LESIONS, 2 TO 4 12/31/19 13 92283-JFFX SKIN LESIONS, 2 TO 4 10/07/19 13 50774-GYIV SKIN LESIONS, 2 TO 4 07/06/20 14 08580-PYJR SKIN LESIONS, 2 TO 4 01/06/20 14 86799-FTMP SKIN LESIONS, 2 TO 4 10/06/19 14 67254-HZQY SKIN LESIONS, 2 TO 4 01/05/20 15 02686-XICZ SKIN LESIONS, 2 TO 4 10/27/19 15 Insurance Providers Payer Name Payer Address Payer Phone Subscriber Number Group Number Insured Name Patient Relationship to Insured Coverage Start Date Coverage End Date [employer] [address] [place] [address] [id number] Jocelyn Mejia Self - patient is the insured [employer] [address] [place] [address] [id number] Brandon Mejia Spouse - patient is the spouse of the insured Medical (General) History Medical History History ICD Code Arthritis back pain Cholesterol Hiatal hernia osteoporosis reflux hypertension ASO/PVD Arthritis - Degenerative Surgical History Surgery Date(Month/Year) Hospitalization History Reason Date(Month/Year) [facility] Acid reflux 09/08-09/12 [facility]- Flu 10/15
== END 2025-07-02 14:28 | disposition home or self-care (01) ==
LOC: HO.HMCC 10:46
PROVIDERS: PCP Internal Medicine; Visit Provider Internal Medicine
DX: E53.8 Deficiency of other specified B group vitamins (principal)

== ENCOUNTER → 2025-07-02 10:46 | Outpatient (BNVA) | payer MEDICARE, OTHER, SELFPAY | PROVIDERS: PCP Internal Medicine; Visit Provider Internal Medicine | DX: E53.8 Deficiency of other specified B group vitamins (principal) | CPT/HCPCS: 96372; J3420 ==

== ENCOUNTER 2025-07-06 09:08 | Outpatient (AMB) | payer MEDICARE, OTHER, SELFPAY ==
--- OUTSIDE RECORDS SUMMARY | 2024-07-31 08:45 | XMS_ITS ---
Author Organization [facility] Address [address] [place] [address] Care Team Providers Care Molding Fitter Name Role Phone Heather CONNORS, Magy Todd Primary Care Provider Un available Bruce Dorsey Unavailable [phone] Encounters Encounter Location Date Provider Diagnosis [address] [address] 07/31/2024 Bruce Dorsey Plan Of Treatment No Information Progress Notes * JACOBSJocelyn MDOB: [birth year] (89 yo F)Acc No.[id number]:07/31/2024 Progress Note Patient: Jocelyn HYDE Provider: Abdiaziz Dorsey DPM :1935 A ge:88 Y S ex:Female Date:07/31/2024 Address:[address] [place] [address] [address], [id number] Pcp:Louie Anderson Subjective: * Chief Complaints: * [...] Date: 10/01/2023 Generated for Printi ng/Faxing/eTransmitting on: 09/05/2024 09:49 AM EST
--- OUTSIDE RECORDS SUMMARY | 2024-08-11 04:15 | XMS_ITS ---
Author Organization [facility] Address [address] [place] [address] Care Team Providers Care Candy Maker Name Role Phone Heather CONNORS, Magy Todd Primary Care Provider Un available Bruce Dorsey Unavailable [phone] Encounters Encounter Location Date Provider Diagnosis [address] [address] 08/11/2024 Bruce Dorsey Plan Of Treatment No Information Progress Notes * JACOBS, Jocelyn MDOB: [birth year] (89 yo F)Acc No.[id number]:08/11/2024 Progress Note Patient: Jocelyn HYDE Provider: Abdiaziz Dorsey DPM :1935 A ge:88 Y S ex:Female Date:08/11/2024 Address:[address] [place] [address] [address], [id number] Pcp:Louie [place] Subjective: * Chief Complaints: * [...] Date: 10/12/2023 Generated for Printi ng/Faxing/eTransmitting on: 09/05/2024 09:49 AM EST
--- OUTSIDE RECORDS SUMMARY | 2025-07-06 09:50 | XMS_ITS | Patient Health Record ---
Author Organization [facility] Address [address] [place] [address] Care Team Providers Care Clinical Research Physician Name Role Phone Heather CONNORS, Magy Todd Primary Care Provider Un available Bruce Dorsey Unavailable [phone] Allergies Allergen (clinical drug ingredient) Drug/Non Drug [...] W/U Status Risk Notes Problem Age-related osteoporosis (942292193) Age-related osteoporosis without current pathological fracture (M81.0) Active confirmed Problem Bilateral atherosclerosis of arteries of lower limbs (disorder) ([id number] ) Atherosclerosis of crow artery of both lower extremities, with unspecified presence of clinical manifestation (I70.203) Active confirmed Encounters Encounter Location Date Provider Diagnosis [facility] [address] [address] 07/29/2024 Bruce Dorsey [facility] [address] [address] 08/11/2024 Bruce Dorsey Plan Of Treatment Pending Test Test Name Order Date X ray : Foot, right 3V 12/28/2022 63587-SBNGERR NAIL, 6 OR MORE 02/05/2023 01652-UCUIIEJ NAIL, 6 OR MORE 11/13/2022 30356-YMVXNMQ NAIL, 6 OR MORE 04/16/2023 15239-GVXEQXI NAIL, 6 OR MORE 07/02/2023 43151-HBXZWVA NAIL, 6 OR MORE 09/20/2023 54409-ROUZXCC NAIL, 6 OR MORE 12/03/2023 05597-ZWZIBGS NAIL, 6 OR MORE 02/25/2024 34717-RIGNAEX NAIL, 6 OR MORE 05/05/2024 70788-QVOGVRH NAIL, 6 OR MORE 10/16/2011 03391-PSZZWXE NAIL, 6 OR MORE 01/15/2012 86655-DSDAZVE NAIL, 6 OR MORE 04/22/2012 47753-IKKRMPA NAIL, 6 OR MORE 07/22/2012 20866-XKMDETF NAIL, 6 OR MORE 10/07/2012 99714-JUZEYQI NAIL, 6 OR MORE 12/30/2012 87662-TDYMYMS NAIL, 6 OR MORE 03/31/2013 04244-EWRPRPE NAIL, 6 OR MORE 06/30/2013 64764-SEUSMBV NAIL, 6 OR MORE 10/06/2013 44887-XAJUXFG NAIL, 6 OR MORE 01/05/2014 06290-ASGWGZB NAIL, 6 OR MORE 07/06/2014 87960-EIFUQVM NAIL, 6 OR MORE 10/26/2014 93896-TDGEMQA NAIL, 6 OR MORE 01/04/2015 70869-LDSQWJK NAIL, 6 OR MORE 04/05/2015 08706-UVLISNJ NAIL, 6 OR MORE 06/14/2015 80775-DFQFJHX NAIL, 6 OR MORE 04/02/2014 50407-OMWQNBI NAIL, 6 OR MORE 09/06/2015 76705-ZROCNKB NAIL, 6 OR MORE 12/02/2015 37780-XBKHDWI NAIL, 6 OR MORE 02/10/2016 04745-IFMBNLE NAIL, 6 OR MORE 04/13/2016 45967-IGVQPIC NAIL, 6 OR MORE 06/22/2016 76359-OWVKUZU NAIL, 6 OR MORE 09/04/2016 36159-WFOJCFB NAIL, 6 OR MORE 11/16/2016 44728-WGRNOZM NAIL, 6 OR MORE 01/29/2017 43120-LVZTTFN NAIL, 6 OR MORE 04/12/2017 63573-ZBBAEXW NAIL, 6 OR MORE 06/25/2017 14964-GIFHMFW NAIL, 6 OR MORE 09/03/2017 38313-SHYBBWV NAIL, 6 OR MORE 11/08/2017 48491-NERRCSZ NAIL, 6 OR MORE 01/10/2018 04668-TXLYLOV NAIL, 6 OR MORE 03/25/2018 92435-OQSXHCO NAIL, 6 OR MORE 05/27/2018 23449-YQEFVYZ NAIL, 6 OR MORE 09/09/2018 86747-ESXWCIN NAIL, 6 OR MORE 12/05/2018 43367-XGVYLGX NAIL, 6 OR MORE 02/24/2019 74087-XTVUDWY NAIL, 6 OR MORE 05/29/2019 83832-DJSDFYB NAIL, 6 OR MORE 08/04/2019 33281-NNMDZSM NAIL, 6 OR MORE 11/10/2019 16055-IZJNVGJ NAIL, 6 OR MORE 02/02/2020 84813-JLPWXPX NAIL, 6 OR MORE 04/12/2020 33729-TGOILTP NAIL, 6 OR MORE 06/24/2020 38504-RSFZCGB NAIL, 6 OR MORE 09/13/2020 36718-DFODNPK NAIL, 6 OR MORE 12/20/2020 55232-CUPRBQZ NAIL, 6 OR MORE 02/28/2021 47403-LKNEXFX NAIL, 6 OR MORE 05/16/2021 71627-HRNKDAT NAIL, 6 OR MORE 09/15/2021 71889-EPUEMVL NAIL, 6 OR MORE 11/17/2021 19228-IRUZIFC NAIL, 6 OR MORE 02/02/2022 19436-HMABWLJ NAIL, 6 OR MORE 04/24/2022 09421-MNUIVWT NAIL, 6 OR MORE 07/06/2022 14936-ZFOGXNM NAIL, 6 OR MORE 09/11/2022 11702-Fvkofbsx Plate 06/01/2022 77670-Pcdfmoek Plate 09/11/2022 33405-Kwpkkkan Plate 04/24/2022 67550-Lpkxofvp Plate 02/02/2022 82017-Roxsdacv Plate 11/17/2021 96729-Qrekliuh Plate 09/15/2021 59514-Phhgbauz Plate 05/16/2021 28236-Rqkncnxm Plate 02/28/2021 55933-Oietvqbb Plate 12/20/2020 61266-Uqiutheo Plate 09/13/2020 36682-Udlbskrb Plate 06/24/2020 77185-Usfktwuw Plate 10/07/2012 82146-Hnhdcync Plate 04/12/2020 70148-Cjjiidao Plate 02/02/2020 03354-Lmdfdtjl Plate 11/10/2019 64220-Bmdprbnf Plate 12/05/2018 27224-Vmhdejwk Plate 09/09/2018 71288-Curahoxs Plate 05/27/2018 68673-Epgyzjzp Plate 01/10/2018 10784-Wzruyeoq Plate 04/12/2017 82314-Whprkfjt Plate 09/04/2016 95543-Obhigaqj Plate 09/06/2015 97394-Lgzejgki Plate 04/02/2014 23098-Wshopdeg Plate 06/14/2015 63144-Jribavvy Plate 04/05/2015 59835-Qgehbtek Plate 01/04/2015 05575-Hjfhkdfk Plate 10/26/2014 95010-Ijsmhwli Plate 07/06/2014 77630-Sqlwbclk Plate 06/30/2013 51245-Vmmcitsj Plate 01/15/2012 10678-Yeyhfjvo Plate 02/25/2024 14012-Kcxtfnen Plate 12/03/2023 29019-Ytgnjdyl Plate 07/02/2023 81201-Clkzvxba Plate 04/16/2023 60796-Flqvobai Plate 11/13/2022 86774-Hnsmzyjj Plate 02/05/2023 41920-Cpuamoub Plate Each Additional 10/2014 66398-Vvsdrofn Plate Each Additional 07/2015 52903-Pxhpjbbj Plate Each Additional 06/2015 77930-Fiwuqibp Plate Each Additional 02551-Skuklcyq Plate Each Additional 07/2019 81273-Jghmknpy Plate Each Additional 20480-Tjaafoau Plate Each Additional 36398-Jpzzyvuv Plate Each Additional 52189-Cfitfjxx Plate Each Additional 01/2021 60304-Yyhuywfg Plate Each Additional 62732-Fizpziav Plate Each Additional 42612-Cttpzlpe Plate Each Additional 34438-Atojawff Plate Each Additional 05/2022 75584 I&D ABSCESS- SIMPLE,SINGLE 014 38250 I&D ABSCESS- SIMPLE,SINGLE 012 04780 I&D ABSCESS- SIMPLE,SINGLE 023 28878-OVLS SKIN LESIONS, OVER 4 05/05/20 24 99512-KBNY SKIN LESIONS, OVER 4 02/06/20 23 46885-JLMR SKIN LESIONS, OVER 4 11/14/19 23 63129-LTHY SKIN LESIONS, OVER 4 04/16/20 23 32776-MIBG SKIN LESIONS, OVER 4 07/02/20 23 58555-INGS SKIN LESIONS, OVER 4 09/20/19 24 19293-LCCY SKIN LESIONS, OVER 4 12/03/19 24 89325-IOHF SKIN LESIONS, OVER 4 02/25/20 24 32498-BVCI SKIN LESIONS, OVER 4 09/04/19 17 87479-NJYJ SKIN LESIONS, OVER 4 11/17/19 17 28006-HEJH SKIN LESIONS, OVER 4 01/30/20 17 59309-SUSF SKIN LESIONS, OVER 4 06/22/20 16 64712-ZNGX SKIN LESIONS, OVER 4 04/13/20 16 09744-IHRD SKIN LESIONS, OVER 4 04/12/20 17 49004-KCTK SKIN LESIONS, OVER 4 06/25/20 17 14977-LFJX SKIN LESIONS, OVER 4 11/09/19 18 90150-VAKL SKIN LESIONS, OVER 4 09/03/19 18 51904-HWBW SKIN LESIONS, OVER 4 02/03/20 33589-SCIY SKIN LESIONS, OVER 4 11/18/19 09580-VTBA SKIN LESIONS, OVER 4 04/24/20 39201-OMGG SKIN LESIONS, OVER 4 07/06/20 33916-RFLP SKIN LESIONS, OVER 4 09/11/19 23 46100-HNFW SKIN LESIONS, OVER 4 09/15/19 25986-XELW SKIN LESIONS, OVER 4 05/16/20 21 09698-PDRJ SKIN LESIONS, OVER 4 02/29/20 10312-WROE SKIN LESIONS, OVER 4 12/21/19 21 07682-ZSYV SKIN LESIONS, OVER 4 09/13/19 77743-WTAN SKIN LESIONS, OVER 4 06/24/20 20 70878-GJTG SKIN LESIONS, OVER 4 11/10/19 82150-VCSI SKIN LESIONS, OVER 4 08/04/20 19 63718-CZXX SKIN LESIONS, OVER 4 02/02/20 20 24558-ZCCM SKIN LESIONS, OVER 4 04/12/20 99944-UTJL SKIN LESIONS, OVER 4 12/06/19 19 22465-EXVR SKIN LESIONS, OVER 4 05/29/20 48313-UGMR SKIN LESIONS, OVER 4 02/25/20 19 52647-FYCN SKIN LESIONS, OVER 4 01/11/20 18 57372-UIFE SKIN LESIONS, OVER 4 03/25/20 18 79288-XORB SKIN LESIONS, OVER 4 05/27/20 18 84918-WVHZ SKIN LESIONS, OVER 4 09/09/19 19 92098-NUXY SKIN LESIONS, 2 TO 4 06/14/20 15 86949-LGHX SKIN LESIONS, 2 TO 4 04/05/20 15 78699-QCIW SKIN LESIONS, 2 TO 4 04/02/20 14 71984-FSLP SKIN LESIONS, 2 TO 4 09/06/19 16 93030-ABOM SKIN LESIONS, 2 TO 4 02/10/20 16 77506-ZQJQ SKIN LESIONS, 2 TO 4 12/02/19 16 31336-CQKO SKIN LESIONS, 2 TO 4 01/15/20 12 72228-ALQB SKIN LESIONS, 2 TO 4 07/22/20 12 67436-KOPT SKIN LESIONS, 2 TO 4 04/22/20 12 78748-MGKQ SKIN LESIONS, 2 TO 4 06/30/20 13 66155-GKRS SKIN LESIONS, 2 TO 4 03/31/20 13 89405-NNKQ SKIN LESIONS, 2 TO 4 12/31/19 13 98882-CTLD SKIN LESIONS, 2 TO 4 10/07/19 13 57879-VPVU SKIN LESIONS, 2 TO 4 07/06/20 14 79130-JYDS SKIN LESIONS, 2 TO 4 01/06/20 14 41416-RXZZ SKIN LESIONS, 2 TO 4 10/06/19 14 83292-UIQC SKIN LESIONS, 2 TO 4 01/05/20 15 89150-SWGP SKIN LESIONS, 2 TO 4 10/27/19 15 Insurance Providers Payer Name Payer Address Payer Phone Subscriber Number Group Number Insured Name Patient Relationship to Insured Coverage Start Date Coverage End Date Medicare National [employer] [address] [place] [address] [id number] Jocelyn Mejia Self - patient is the insured [employer] [address] [place] [address] [id number] Brandon Mejia Spouse - patient is the spouse of the insured Medical (General) History Medical History History ICD Code Arthritis back pain Cholesterol Hiatal hernia osteoporosis reflux hypertension ASO/PVD Arthritis - Degenerative Surgical History Surgery Date(Month/Year) Hospitalization History Reason Date(Month/Year) [facility] Acid reflux 09/08-09/12 [facility]- Flu 10/15
--- OUTSIDE RECORDS SUMMARY | 2025-07-06 09:50 | XMS_ITS | Patient Health Record ---
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 Name Role Phone Heather CONNORS, Magy Primary Care Provider Brian Tam Unavailable [phone] SALOMÓN CHAMPION Unavailable Unavailable Allergies Allergen (clinical [...] Status W/U Status Risk Notes Problem Cough (56702984) Cough (R05) Active confirmed Problem Gastroesophageal reflux disease with esophagitis (892538225) Gastroesophageal reflux disease with esophagitis (K21.0) Active confirmed Problem Erosive esophagitis (01444000) Erosive esophagitis (K22.10) Active confirmed Problem Constipation (02994758) Constipation, unspecified constipation type (K59.00) Active confirmed Problem Esophagitis (70719013) Esophagitis (K20.9) Active confirmed Problem Lower abdominal pain (84475675) Lower abdominal pain (R10.30) Active confirmed Plan Of Treatment Pending Test Test Name Order Date XR CHEST 2 VIEW PA & LAT 04/25/2021 Future Test Test Name Order Date UPPER GI ENDOSCOPY 11/13/2016 Insurance Providers Payer Name Payer Address Payer Phone Subscriber Number Group Number Insured Name Patient Relationship to Insured Coverage Start Date Coverage End Date MEDICARE OF [place] [address] [place] [address] [id number] HITESH JACOBS Self - patient is the insured [employer] [address] [place] [address] [id number] JACOBS HITESH Self - patient is the [...] Tremors Elevated cholesterol Degenerative joint disease Denies ID,DM,CVA,Lung disease,renal dise ase Surgical History Surgery Date(Month/Year) Cataracts/lens implants 10/2006
[2025-07-06 10:23] VITALS: BP 110/92; PULSE 67; RESP 16; TEMP 36.5; O2SAT 97; BMI 24.8
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
== END 2025-07-06 12:25 | disposition home or self-care (01) ==
LOC: HO.HMCC 09:09
PROVIDERS: PCP Internal Medicine; Visit Provider Internal Medicine
DX: Z87.828 Personal history of other (healed) physical injury and trauma (principal); M25.511 Pain in right shoulder

== ENCOUNTER → 2025-07-06 09:08 | Outpatient (BNVA) | payer MEDICARE, OTHER, SELFPAY | PROVIDERS: PCP Internal Medicine; Visit Provider Internal Medicine | DX: M25.511 Pain in right shoulder (principal); Z87.828 Personal history of other (healed) physical injury and trauma | CPT/HCPCS: 99212 ==

== ENCOUNTER 2025-07-30 11:09 | Outpatient (REF) | payer MEDICARE, OTHER, SELFPAY ==
--- NOTE | ~2025-07-30 | US_ITS ---
CLINICAL HISTORY: N20.0 - Calculus of kidney US Renal Comparison: 12/09/2024 02:01 PM EDT: US 12/16/2023 01:02 PM EDT: US Findings: Right kidney normal size and echotexture, 11.4 cm length. There are punctate questionable parenchymal calculi. Left kidney normal size and echotexture, 11.4 cm length. There is an exophytic 5.0 x 4.8 x 4.0 cm mass, possible Bosniak 1 cyst. No collecting system dilatation of either kidney. Normal color Doppler. IMPRESSION: 1. No acute findings. This document has been electronically signed by: Tobias Pelayo MD on 07/31/2025 08:35:49
--- OUTSIDE RECORDS SUMMARY | 2025-07-30 13:39 | XMS_ITS | Clinical Summary ---
Author Organization [facility] Address [address] [address] Phone Care Team Providers Care Practice Management Consultant Name Role Phone Magy Romero MD Primary [...] EST) SODIUM 137 133 - 146 mmol/L [facility] POTASSIUM 4.3 3.3 - 5.1 mmol/L [facility] CHLORIDE 100 96 - 108 mmol/L [facility] CO2 26 21 - 35 mmol/L [facility] BUN 22(H) 6 - 19 mg/dL [facility] CREATININE 0.90 0.5 - 1.5 mg/dL [facility] GLUCOSE 107(H) 70 - 99 mg/dL [facility] ALBUMIN 2.9(L) 3.9 - 4.8 g/dL [facility] TOTAL PROTEIN 5.0(L) 6.5 - 8.0 g/dL [facility] CALCIUM 7.8(L) 8.4 - 10.3 mg/dL [facility] ALKALINE PHOSPHATASE 59 39 - 117 U/L [facility] TOTAL BILIRUBIN <0.2 0.0 - 1.2 mg/dL [facility] AST 29 0 - 37 U/L [facility] ALT 13 0 - 40 U/L [facility] GLOBULIN 2.1 1 - 4.8 g/dL [facility] EGFR 62 >59 mL/min/1.7 3m2 [facility] Comment:Estimated glomerular filtration rate calculated using the CKD-EPI refit equation. ANION GAP 15 10 - 20 mmol/L [facility] Blood 10/08/2024 8:01 AM EST 10/08/2024 10:51 AM EST us Ravi Rivera MD LAB BLOOD BKR ORDERABLES Final Result [facility] [address] [place] [address] from Last 3 Months or Most Recently Relevant to Health Maintenance Insurance MEDICARE PART A & B [employer] MEDICARE SUPPLEMENT [facility] [place] [phone] MEDICARE PART A & B FOR LIFE MEDICARE SUPPLEMENT [facility] MEDICARE PART A & B [facility] MEDICARE SUPPLEMENT [facility] MEDICARE PART A & B Member Subscriber Plan / Payer (Ef fective 2001-Present) Name:Jocelyn Mejia Member ID:[id number] Relation to Subscriber:Self Name:Jocelyn Mejia Subscriber ID:[id number] Payer ID:[id number] Group ID:Not on file Type:Medicare Address: [facility] [employer] [facility] [address] [place] [phone] [facility] MEDICARE SUPPLEMENT [facility] MEDICARE PART A & B [employer] MEDICARE SUPPLEMENT [facility] [place] [id number] MEDICARE PART A & B FOR LIFE MEDICARE SUPPLEMENT [facility] Care Teams Practice Management Consultant Relationship Specialty Start Date End Date Magy Romero MD [facility] [place] [address] PCP - General Internal Medicine 02/07/23 Additional Source Comments The information contained in this document represents components of the legal health record. It is not the complete legal health record.[facility]
--- OUTSIDE RECORDS SUMMARY | 2025-07-30 13:40 | XMS_ITS | Patient Health Record ---
Author Organization [facility] Address [address] [place] [address] Care Team Providers Care Healthcare Educator Name Role Phone Heather CONNORS, Magy Primary Care Provider Brian Tam Unavailable [phone] SALOMÓN CHAMPION Unavailable Unavailable Allergies Allergen (clinical drug ingredient) Drug/Non Drug Allergy documented on EMR Reaction Allergy Type Onset Date Status Codeine Phosphate Unknown Drug Allergy Active Reason For Referral No Information Medications Medication SIG (Take, Route, Frequency, Duration) Notes Start Date End Date Status CeleBREX 100 MG Capsule 1 capsule with food Orally Twice a day Active Propranolol HCl 60 MG Tablet 1 tablet Orally once a day Active Omeprazole 20 MG Capsule Delayed Release 1 capsule Oral Once a day Active Sucralfate 1 GM/10ML Suspension SHAKE LQ AND TK 10 ML PO BID Oral; Duration: 30 Not-Taking/PRN Vitamin B12 1000 MCG Tablet Extended Release 1 tablet Orally Once a day Active Vitamin D3 1000 UNIT Capsule 1 capsule Orally Once a day Active Primidone 50 MG Tablet Orally Active Rosuvastatin Calcium 10 MG Tablet 1 tablet Orally Once a day; Duration: 30 day(s) Active Calcium 600 MG Tablet 1 tablet with meal s Orally Once a day Active Prolia 60 MG/ML Solution injection Subcutaneous once a month Active Immunizations Vaccine Route Administration Date Status Comme nts Influenza Unknown 04/26/2016 Administered Influenza Unknown 04/26/2019 Administered Influenza Unknown 04/26/2020 Administered Social History Social History Additional Details Category Social Info Options Details Miscellaneous: Marital status: Occupation: Retired Section Notes: Nonsmoker; no alcohol Nonsmoker; no alcohol Nonsmoker; no alcohol Problems Problem Type SNOMED Code ICD Code Onset Dates Problem Status W/U Status Risk Notes Problem Cough (36698495) Cough (R05) Active confirmed Problem Gastroesophageal reflux disease with esophagitis (013094316) Gastroesophageal reflux disease with esophagitis (K21.0) Active confirmed Problem Erosive esophagitis (65066422) Erosive esophagitis (K22.10) Active confirmed Problem Constipation (79638455) Constipation, unspecified constipation type (K59.00) Active confirmed Problem Esophagitis (82191648) Esophagitis (K20.9) Active confirmed Problem Lower abdominal pain (32092246) Lower abdominal pain (R10.30) Active confirmed Plan Of Treatment Pending Test Test Name Order Date XR CHEST 2 VIEW PA & LAT 04/25/2021 Future Test Test Name Order Date UPPER GI ENDOSCOPY 11/13/2016 Insurance Providers Payer Name Payer Address Payer Phone Subscriber Number Group Number Insured Name Patient Relationship to Insured Coverage Start Date Coverage End Date MEDICARE OF [place] [address] [place] [address] [id number] HITESH JACOBS Self - patient is the insured [employer] [address] [place] [address] [id number] HITESH JACOBS Self - patient is the insured Medical [...] Tremors Elevated cholesterol Degenerative joint disease Denies NH,DM,CVA,Lung disease,renal dise ase Surgical History Surgery Date(Month/Year) Cataracts/lens implants 10/2006
== END 2025-07-30 11:10 | disposition home or self-care (01) ==
LOC: HO.HMGCX 11:09
PROVIDERS: PCP Internal Medicine; Visit Provider Nurse Practitioner Family
DX: N20.0 Calculus of kidney (principal); N28.1 Cyst of kidney, acquired
CPT/HCPCS: 76775

== ENCOUNTER → 2025-07-30 11:26 | Outpatient (BNV) | payer MEDICARE, OTHER, SELFPAY | PROVIDERS: PCP Internal Medicine; Visit Provider Specialist | DX: N20.0 Calculus of kidney (principal) | CPT/HCPCS: 76775 ==

== ENCOUNTER 2025-08-02 14:05 | Outpatient (AMB) | payer MEDICARE, OTHER, SELFPAY ==
--- OUTSIDE RECORDS SUMMARY | 2024-07-31 08:45 | XMS_ITS ---
Author Organization [facility] Address [address] [place] [address] Care Team Providers Care Automatic Machine Attendant Name Role Phone Heather CONNORS, Magy Todd Primary Care Provider Un available Bruce Dorsey Unavailable [phone] Encounters Encounter Location Date Provider Diagnosis [address] [address] 07/31/2024 Bruce Dorsey Plan Of Treatment Next Appt Details Provider Name:Bruce Dorsey , 08/10/2025 10:15:00 AM, [address] [place], [address], Progress Notes * Jocelyn JACOBS MDOB: [birth year] (89 yo F)Acc No.[id number]:07/31/2024 Progress Note Patient: Jocelyn HYDE Provider: Abdiaziz Dorsey DPM :1935 A ge:88 Y S ex:Female Date:07/31/2024 Address:[address] [place] [address] [address], [id number] Pcp:Louie Anderson Subjective: * Chief Complaints: * * Medical History: Objective: * Vitals: Assessment: Plan: * Treatment: * Images: * The named appointment provid er may or may not be the originator of this progress note, and it is not deemed complete until electronically signed by the appointment provider. Sign off status: Pending * Provider: Abdiaziz Dorsey DPM Date: 10/01/2023 Generated for Jose Juan hennessy/Kinjal/Kye on: 10/03/2024 11:00 PM EST
--- NOTE | 2025-08-02 14:16 | AM.OFFVISNUR ---
Intake Visit Reasons: B12 shot Allergies No Known Allergies Allergy (Verified 07/06/25 10:38) Nursing Note Pt came in for Vitamin B12 injection to left gluteus. Pt tolerate well. Office Meds cyanocobalamin (vitamin B-12) 1,000 mcg/mL injection solution Performing Provider: Magy Romero MD Performing Location: [facility] Administered by: Alva Wang on 08/02/25 14:17 Dose Route Admin Location Dispensed Lot Number Expiration Date [facility] Dividend Clerk 1,000 mcg IM ;left gluteus 1 mL [id number] 04/14/26 34863-583-74 [employer] Total Dispensed Waste 1 mL 0 % Assessment & Plan Assessment & Plan Orders: Orders AMB Vitamin B12 Injection Patient Supplied Today E53.8 - Deficiency of other specified B group vitamins Coding
--- OUTSIDE RECORDS SUMMARY | 2025-08-02 23:00 | XMS_ITS | Clinical Summary ---
Author Organization [facility] Address [address] [address] Phone Care Team Providers Care Automation Control Integrator Name Role Phone Magy Romero MD Primary [...] EST) SODIUM 137 133 - 146 mmol/L [facility] POTASSIUM 4.3 3.3 - 5.1 mmol/L [facility] CHLORIDE 100 96 - 108 mmol/L [facility] CO2 26 21 - 35 mmol/L [facility] BUN 22(H) 6 - 19 mg/dL [facility] CREATININE 0.90 0.5 - 1.5 mg/dL [facility] GLUCOSE 107(H) 70 - 99 mg/dL [facility] ALBUMIN 2.9(L) 3.9 - 4.8 g/dL [facility] TOTAL PROTEIN 5.0(L) 6.5 - 8.0 g/dL [facility] CALCIUM 7.8(L) 8.4 - 10.3 mg/dL [facility] ALKALINE PHOSPHATASE 59 39 - 117 U/L [facility] TOTAL BILIRUBIN <0.2 0.0 - 1.2 mg/dL [facility] AST 29 0 - 37 U/L [facility] ALT 13 0 - 40 U/L [facility] GLOBULIN 2.1 1 - 4.8 g/dL [facility] EGFR 62 >59 mL/min/1.7 3m2 [facility] Comment:Estimated glomerular filtration rate calculated using the CKD-EPI refit equation. ANION GAP 15 10 - 20 mmol/L [facility] Blood 10/08/2024 8:01 AM EST 10/08/2024 10:51 AM EST us Ravi Rivera MD LAB BLOOD BKR ORDERABLES Final Result [facility] [address] [place] [address] from Last 3 Months or Most Recently Relevant to Health Maintenance Insurance MEDICARE PART A & B [employer] MEDICARE SUPPLEMENT [facility] Address: [address] [address] [facility] [place] [address] MEDICARE PART A & B FOR LIFE MEDICARE SUPPLEMENT [facility] Address: [address] [address] [facility] B [employer] MEDICARE SUPPLEMENT [facility] Address: [address] [address] [facility] & B [facility] MEDICARE SUPPLEMENT [facility] Address: [address] [address] [facility] MEDICARE PART A & B [employer] MEDICARE SUPPLEMENT [facility] Address: [address] [address] [facility] [place] [address] MEDICARE PART A & B FOR LIFE MEDICARE SUPPLEMENT [facility] Care Teams Automation Control Integrator Relationship Specialty Start Date End Date Magy Romero MD [facility] [place] [address] PCP - General Internal Medicine 02/07/23 Additional Source Comments The information contained in this document represents components of the legal health record. It is not the complete legal health record.[facility]
--- OUTSIDE RECORDS SUMMARY | 2025-08-02 23:01 | XMS_ITS | Patient Health Record ---
Author Organization [facility] Address [address] [place] [address] Care Team Providers Care Bar Porter Name Role Phone Heather CONNORS, Magy Primary Care Provider Brian Tam Unavailable [phone] SALOMÓN CHAMPION Unavailable Unavailable Allergies Allergen (clinical [...] Status W/U Status Risk Notes Problem Cough (97728231) Cough (R05) Active confirmed Problem Gastroesophageal reflux disease with esophagitis (522139143) Gastroesophageal reflux disease with esophagitis (K21.0) Active confirmed Problem Erosive esophagitis (95216029) Erosive esophagitis (K22.10) Active confirmed Problem Constipation (47790207) Constipation, unspecified constipation type (K59.00) Active confirmed Problem Esophagitis (56335044) Esophagitis (K20.9) Active confirmed Problem Lower abdominal pain (46045417) Lower abdominal pain (R10.30) Active confirmed Plan Of Treatment Pending Test Test Name Order Date XR CHEST 2 VIEW PA & LAT 04/25/2021 Future Test Test Name Order Date UPPER GI ENDOSCOPY 11/13/2016 Insurance Providers Payer Name Payer Address Payer Phone Subscriber Number Group Number Insured Name Patient Relationship to Insured Coverage Start Date Coverage End Date MEDICARE OF [place] [address] [place] [address] [id number] HITESH JACOBS Self - patient is the insured [employer] [address] [place] [address] [id number] HITESH JACOBS Self - patient is the [...]
== END 2025-08-02 14:31 | disposition home or self-care (01) ==
LOC: HO.HMCC 14:06
PROVIDERS: PCP Internal Medicine; Visit Provider Internal Medicine
DX: E53.8 Deficiency of other specified B group vitamins (principal)

== ENCOUNTER → 2025-08-02 14:05 | Outpatient (BNVA) | payer MEDICARE, OTHER, SELFPAY | PROVIDERS: PCP Internal Medicine; Visit Provider Internal Medicine | DX: E53.8 Deficiency of other specified B group vitamins (principal) | CPT/HCPCS: 96372; J3420 ==